=== PATIENT | male | born 1950 | race Caucasian/White ===

== ENCOUNTER 2023-10-16 19:08 | Emergency (ER) | payer MEDICARE, SELFPAY ==
[2023-10-16 19:09] VITALS: BP 156/92; PULSE 66; TEMP 36.6; O2SAT 97
--- NOTE | 2023-10-16 19:19 | CT_ITS ---
The [address] [address] Patient Name: SUSIE SAMUELS MRN: [id number] date: 1950 Sex: M Assigned Patient Location: ER Current Patient Location: ED.MAIN Accession/Order Number: [id number] Exam Date: 10/16/2023 19:36 Report Date: 10/16/2023 20:33 At the request of: RAFAEL STERLING Procedure: CT head/brain wo con EXAM: CT head/brain wo con HISTORY: head injury COMPARISON: None. TECHNIQUE: CT head noncontrast. Axial scans with reformatted coronal and sagittal images. Individualized dose reduction views for this exam. FINDINGS: No intracranial hemorrhage noted. Scalp injury left parietal area without adjacent fracture or foreign body. There is a small calcific density along the inner table the skull left parietal area, could be a small incidental meningioma less than a centimeter. Adjacent brain appears normal. Ventricles and sulci prominent felt to be normal for age. No mass effect or midline shift. No edema noted. Visualized mastoid, middle ear cavities sinuses clear. CT/CT head/brain wo con IMPRESSION: 1. Left parietal scalp injury without foreign body or adjacent skull fracture. 2. No intracranial hemorrhage or other acute abnormality within the brain. 3. Small calcific density along the inner table skull left parietal area as noted above. Possible small incidental meningioma. Electronically authenticated by: JAHAIRA CROSS Date: 10/16/2023 20:33
--- NOTE | 2023-10-16 19:19 | CT_ITS ---
The [address] [address] Patient Name: SUSIE SAMUELS MRN: [id number] date: 1950 Sex: M Assigned Patient Location: ER Current Patient Location: .[facility] Accession/Order Number: [id number] Exam Date: 10/16/2023 19:36 Report Date: 10/16/2023 20:34 At the request of: RAFAEL STERLING Procedure: CT cervical spine wo con CT cervical spine wo con 10/16/2023 6:36 PM CDT: History: head injury Neck Pain Comparison: None. Technique: Unenhanced CT imaging of the cervical spine. This CT exam was performed using one or more of the following dose reduction techniques: Automated exposure control, adjustment of the mA and/or KV according to patient size, or use of iterative reconstruction technique. Findings: The cervical vertebral bodies maintain normal height and alignment. There is no fracture or dislocation. The prevertebral soft tissues and predental space are normal. The facet joints are aligned bilaterally. The atlantooccipital articulation is normal bilaterally. There is multilevel degenerative disc disease of the cervical spine. CT/CT cervical spine wo con Impression: 1. No acute abnormality of the cervical spine. Electronically authenticated by: KAISER STEPHENSON Date: 10/16/2023 20:34
--- NOTE | 2023-10-16 19:19 | XR_ITS ---
The [address] [address] Patient Name: SUSIE SAMUELS MRN: [id number] date: 1950 Sex: M Assigned Patient Location: ER Current Patient Location: ER Accession/Order Number: [id number] Exam Date: 10/16/2023 19:47 Report Date: 10/16/2023 20:35 At the request of: RAFAEL STERLING Procedure: XR elbow LT min 3V EXAM: XR elbow LT min 3V HISTORY: injury. skin tear/ pain COMPARISON: None. TECHNIQUE: AP, oblique, lateral view left elbow. FINDINGS: Negative for fracture or joint effusion. DJD with articular spurring. Narrowing of the radiocapitellar joint. There are 2 incidental soft tissue calcification. XR/XR elbow LT min 3V IMPRESSION: DJD. Negative for fracture or joint effusion. Electronically authenticated by: JAHAIRA CROSS Date: 10/16/2023 20:35
--- NOTE | 2023-10-16 19:22 | ED_ITS ---
HPI HPI - General Adult General Chief complaint: Head Injury Stated complaint: FALL Time Seen by Provider: 10/16/23 19:14 Source: patient and medical record Mode of arrival: ambulance History of Present Illness HPI narrative: Patient is a 73-year-old male from [facility] facility for evaluation of head injury. Patient reports a history of Parkinson's, EMS reported dementia. Patient states he stood up too quickly without his cane and lost his balance striking his head on the leg of a chair. He denies loss of consciousness, reports tenderness to the left side of his head and left elbow. Patient has bl eeding controlled with bandage 4 cm linear left temporal scalp laceration and skin tear noted to the left elbow. Patient denies pain to his neck back or lower legs. He is alert to person place and month. He does not know the day. Patient states his lives in [place]. Patient's tetanus is up-to-date and he does not take any blood thinning medications per medical record. Location: Reports head and upper extremity (left elbow) Severity: mild Pain Consistency: Reports constant Relieving factors: Reports none Exacerbating factors: Reports none Related Data Home Medications ?Medication ?Instructions ?Recorded ?Confirmed atorvastatin 40 mg tablet 40 mg PO DAILY 10/16/23 10/16/23 carbidopa ER 25 mg-levodopa 100 mg 1 tab PO QID 10/16/23 10/16/23 tablet,extended release cyanocobalamin (vitamin B-12) 100 100 mcg PO DAILY 10/16/23 10/16/23 mcg tablet donepezil 23 mg tablet 23 mg PO DAILY 10/16/23 10/16/23 fluoxetine 60 mg tablet 60 mg PO DAILY 10/16/23 10/16/23 insulin detemir U-100 100 unit/mL 20 unit subcut QPM 10/16/23 10/16/23 (3 mL) subcutaneous pen (Levemir FlexPen) insulin lispro 100 unit/mL 1 sliding scale dose subcut 10/16/23 10/16/23 subcutaneous cartridge (Humalog USEASDIRECTD U-100 Insulin) melatonin 3 mg capsule 3 mg PO QPM 10/16/23 10/16/23 pantoprazole 40 mg tablet,delayed 40 mg PO QPM 10/16/23 10/16/23 release pyridostigmine bromide 30 mg tablet 30 mg PO BID 10/16/23 10/16/23 sitagliptin phosphate 100 mg 100 mg PO BID 10/16/23 10/16/23 tablet (Januvia) Allergies Allergy/AdvReac Type Severity Reaction Status Date / Time Penicillins Allergy Severe Anaphylaxis Verified 10/16/23 19:12 Opioid HPI Opioid Management Most Recent Opioid Data: No Data to Display Review of Systems ROS Constitutional Denies: fever or chills Eyes Denies: change in vision Ears, nose, mouth, and throat Denies: throat pain or neck pain Cardiovascular Denies: chest pain or palpitations Respiratory Denies: shortness of breath or cough Gastrointestinal Denies: abdominal pain Genitourinary Denies: painful urination Musculoskeletal Reports: joint pain (left lebow); Denies: back pain or extremity swelling Neurological Denies: headache Hematologic/Lymphatic Denies: easy bruising PFSH [facility] Medical History (Updated 10/16/23 @ 20:33 by SANDOVAL Grady) Osteoarthritis ?M19.90 - Unspecified osteoarthritis, unspecified site (ICD-10) HTN (hypertension) ?I10 - Essential (primary) hypertension (ICD-10) Homicidal ideations ?R45.850 - Homicidal ideations (ICD-10) Diabetes ?E11.9 - Type 2 diabetes mellitus without complications (ICD-10) Parkinson disease ?G20.A1 - Parkinson's disease without dyskinesia, without mention of fluctuations (ICD-10) Hyperlipemia ?E78.5 - Hyperlipidemia, unspecified (ICD-10) Anxiety ?F41.9 - Anxiety disorder, unspecified (ICD-10) Alzheimer disease ?G30.9 - Alzheimer's disease, unspecified (ICD-10) ?F02.80 - Dementia in other diseases classified elsewhere, unspecified severity, without behavioral disturbance, psychotic disturbance, mood disturbance, and anxiety (ICD-10) Agitation ?R45.1 - Restlessness and agitation (ICD-10) Depression ?F32.A - Depression, unspecified (ICD-10) Dementia ?F03.90 - Unspecified dementia, unspecified severity, without behavioral disturbance, psychotic disturbance, mood disturbance, and anxiety (ICD-10) Exam Narrative Exam Narrative: Nurses notes and vital signs reviewed and patient is not hypoxic. General: The patient appears well and in no apparent distress. Patient is resting comfortably on cart. Skin: Warm, dry, no pallor noted. Skin tear noted left lateral elbow. Head: Normocephalic, 4 cm linear scalp laceration left temporal region. Bleeding controlled with bandage. Neck: Supple, trachea mid-line, no tenderness, no lymphadenopathy, c-collar in place from EMS. Eye: Pupils are equal, round and reactive to light, EOMI Ears, Nose, Mouth, and Throat: External exam unremarkable. Cardiovascular: Regular Rate and Rhythm Respiratory: Patient is in no distress, no accessory muscle use, lungs are clear to auscultation, no wheezing, rales or rhonchi. Chest Wall: no tenderness Back: non-tender, no CVA tenderness, pain to the midline thoracic or lumbar spine. Musculoskeletal: normal ROM, no tenderness, no swelling, bilateral knee replacements noted, no bruising or abrasion, no tenderness. No pain with range of motion of hips. GI: Normal bowel sounds, no tenderness to palpation, no masses appreciated. No rebound, guarding, or rigidity noted. Neurological: A&O person, place, recent events and month. Psychiatric: Cooperative Constitutional Vital Signs, click to edit/add: Last Vital Signs Temp 97.9 F 10/16/23 19:09 Pulse 78 10/16/23 20:37 Resp 18 10/16/23 20:37 BP 178/87 H 10/16/23 20:37 Pulse Ox 98 10/16/23 20:37 O2 Del Method Room Air 10/16/23 19:09 Course Vital Signs Vital signs: Vital Signs Temperature 97.9 F 10/16/23 19:09 Pulse Rate 66 10/16/23 19:09 Respiratory Rate 18 10/16/23 19:09 Blood Pressure 156/92 H 10/16/23 19:09 Pulse Oximetry 97 10/16/23 19:09 Oxygen Delivery Method Room Air 10/16/23 19:09 Temperature 97.9 F 10/16/23 19:09 Pulse Rate 78 10/16/23 20:37 Respiratory Rate 18 10/16/23 20:37 Blood Pressure 178/87 H 10/16/23 20:37 Pulse Oximetry 98 10/16/23 20:37 Oxygen Delivery Method Room Air 10/16/23 19:09 Medical Decision Making MDM Narrative Medical decision making narrative: Patient with fall, closed head injury, currently acting appropriate, patient aware his laceration will require suture repair and is agreeable to lidocaine with epinephrine for procedure. We discussed the need to CT image his head and neck. X-ray left elbow. Skin tear cleansed and dressed with gauze bandage. Will need follow-up with PCP/house nurse for suture removal in 7 days. Verbal and written close head injury instructions discussed The patient is to followup with primary care physician in next 2-3 days wound recheck and suture removal in 7 days. or to return to the emergency department should any of the signs or symptoms worsen or new symptoms develop. Patient had questions answered. The patient agrees with the following Diagnosis and Treatment plan and the patient will be discharged home. SHARED APC VISIT, PHYSICIAN ATTESTATION: [id number] I performed a substantive part of the MDM during the patient?s E/M visit. I personally evaluated and examined the patient. I personally made or approved the documented management plan and acknowledge its risk of complications. My (EKG/X-Ray/US/CT) interpretation . Management/test interpretation discussed with . Imaging Data CT scan - head: Radiologist's impression: ITS Impressions Cervical Spine CT 10/16/23 19:19 Impression: 1. No acute abnormality of the cervical spine. Electronically authenticated by: KAISER STEPHENSON Date: 10/16/2023 20:34 Elbow X-Ray 10/16/23 19:19 IMPRESSION: DJD. Negative for fracture or joint effusion. Electronically authenticated by: JAHAIRA CROSS Date: 10/16/2023 20:[address] 10/16/23 19:19 IMPRESSION: 1. Left parietal scalp injury without foreign body or adjacent skull fracture. 2. No intracranial hemorrhage or other acute abnormality within the brain. 3. Small calcific density along the inner table skull left parietal area as noted above. Possible small incidental meningioma. Electronically authenticated by: JAHAIRA CROSS Date: 10/16/2023 20:33 Discharge Plan Discharge Stand Alone Forms: Portal Instructions Chief Complaint: Head Injury Clinical Impression: Closed head injury, Laceration of scalp, Skin tear of left elbow without complication Patient Disposition: Home, Self-Care Time of Disposition Decision: 20:38 Condition: Good Mode of Transportation: EMS Prescriptions / Home Meds: No Action atorvastatin 40 mg tablet 40 mg PO DAILY carbidopa-levodopa 25-100 mg tablet extended release 1 tab PO QID donepezil 23 mg tablet 23 mg PO DAILY fluoxetine 60 mg tablet 60 mg PO DAILY Humalog U-100 Insulin 100 unit/mL cartridge 1 sliding scale dose subcut USEASDIRECTD Januvia 100 mg tablet 100 mg PO BID Levemir FlexPen 100 unit/mL (3 mL) insulin pen 20 unit subcut QPM melatonin 3 mg capsule 3 mg PO QPM pantoprazole 40 mg tablet,delayed release (DR/EC) 40 mg PO QPM pyridostigmine bromide 30 mg tablet 30 mg PO BID cyanocobalamin (vitamin B-12) 100 mcg tablet 100 mcg PO DAILY Print Language: Citizen Of [place] Instructions: Laceration (ED), Head Injury (ED) Additional Instructions: Suture removal in 7-10 days: to scalp Steri strips on left elbow- will fall of on there own.. keep wound covered. No submerging. Referrals: ARSENIO RODRIGUEZ [Primary Care Provider] - 1 week Procedures ED Laceration Laceration Laceration 1: Additional comments: Laceration repair: Done under sterile conditions. The use of Betadine was used to prep and clean the area. Local injection with lidocaine with epi 1% was used, approximately 3.5 cc. The wound was irrigated copiously with normal saline. The wound was explored there was no evidence of foreign material. The laceration was approximated with 5-0 prolene. 6 simple interrupted sutures were placed. Patient tolerated the procedure well. The patient was neurovascularly intact post. the patient had bacitracin applied to the laceration and a dry sterile dressing was place. The patient will need to follow-up in the next 7-10 days for removal.
[2023-10-16] MEDS: LIDOCAINE HCL 1%-EPINEPHRINE 1:100,000 20 ML MDV INJ (20:01)
[2023-10-16] MEDS: BACITRACIN 0.9 GM PACKET 1 PACKET TOPICAL (20:01)
[2023-10-16 20:37] VITALS: BP 178/87; PULSE 78; O2SAT 98
[2023-10-16 22:54] VITALS: BP 162/82; PULSE 72; O2SAT 98
== END 2023-10-16 23:00 | disposition home or self-care (01) ==
PROVIDERS: Emergency Provider Emergency Medicine; PCP Family Medicine
DX: S09.8XXA Other specified injuries of head, initial encounter (principal); S01.01XA Laceration without foreign body of scalp, initial encounter; S51.012A Laceration without foreign body of left elbow, initial encounter; W19.XXXA Unspecified fall, initial encounter; G20.A1 Parkinson's disease without dyskinesia, without mention of fluctuations; F02.80 Dementia in other diseases classified elsewhere, unspecified severity, without behavioral disturbance, psychotic disturbance, mood disturbance, and anxiety
CPT/HCPCS: 12002; 70450; 72125; 73080; 99285

== ENCOUNTER 2023-12-11 08:38 | Emergency (ER) | payer MEDICARE, SELFPAY ==
[2023-12-11] VITALS (30 sets, daily range): BP systolic 114–141; BP diastolic 56–74; PULSE 53–79; TEMP 36.5; O2SAT 98–100; BMI 24.4
--- NOTE | 2023-12-11 08:41 | CT_ITS ---
The [address] [address] Patient Name: SUSIE SAMUELS MRN: [id number] date: 1950 Sex: M Assigned Patient Location: ER Current Patient Location: ER Accession/Order Number: [id number] Exam Date: 12/11/2023 09:00 Report Date: 12/11/2023 09:34 At the request of: VIOLETTE LOPEZ Procedure: CT cervical spine wo con EXAM: CT cervical spine wo con HISTORY: trauma COMPARISON: CT cervical spine 10/16/2023 TECHNIQUE: Axial noncontrast CT imaging of the cervical spine was performed with coronal and sagittal reformats. FINDINGS: Alignment: No substantial subluxation. Vertebrae: Vertebral body heights are maintained. No fracture. Craniocervical junction: No focal abnormality. Degenerative changes: Stable degenerative change of the cervical spine with multilevel small posterior disc osteophyte complexes and probable central protrusion at C7 with caudal migration of vacuum disc. Multilevel moderate to advanced uncovertebral mild to moderate uncovertebral and moderate to advanced facet arthropathy. No overt substantial canal stenosis. Multilevel moderate to advanced right greater than left foraminal stenosis secondary to uncovertebral and facet arthropathy. Additional Comments: Mild vascular sclerosis. CT/CT cervical spine wo con IMPRESSION: No acute fracture or traumatic malalignment of the cervical spine. Electronically authenticated by: MAGALI CRAWFORD Date: 12/11/2023 09:34
--- NOTE | 2023-12-11 08:41 | CT_ITS ---
The [address] [address] Patient Name: SUSIE SAMUELS MRN: [id number] date: 1950 Sex: M Assigned Patient Location: ER Current Patient Location: Accession/Order Number: [id number] Exam Date: 12/11/2023 09:00 Report Date: 12/11/2023 11:47 At the request of: VIOLETTE LOPEZ Procedure: CT facial bones wo con CT SCAN OF THE FACE WITHOUT CONTRAST HISTORY: Trauma. TECHNIQUE: Multiple axial images are performed through the facial bones from the level above the frontal sinuses down through the mandible. Images are then reconstructed in the sagittal and coronal planes.This exam was performed according to our departmental dose-optimization program which includes use of Automated Exposure Control, adjustment of the mA and/or kV according to patient size and/or use of iterative reconstruction technique. Without contrast. Contrast: None. COMPARISON: None. FINDINGS: Bones: There is no evidence for acute fracture. Mineralization: Bone mineralization is decreased Soft tissues: Soft tissues are within normal. Paranasal sinuses: The paranasal sinuses are well aerated. Mastoid air cells: The mastoid air cells are well aerated. Orbits: Normal. CT/CT facial bones wo con IMPRESSION: Osteopenia. No acute displaced fracture. Electronically authenticated by: DAYAN BARTON Date: 12/11/2023 11:47
--- NOTE | 2023-12-11 08:41 | CT_ITS ---
The [address] [address] Patient Name: SUSIE SAMUELS MRN: [id number] date: 1950 Sex: M Assigned Patient Location: ER Current Patient [facility]: [facility] Accession/Order Number: [id number] Exam Date: 12/11/2023 09:00 Report Date: 12/11/2023 09:30 At the request of: VIOLETTE LOPEZ Procedure: CT head/brain wo con EXAM: NONCONTRAST CT SCAN OF THE HEAD HISTORY: 73-year-old male with head injury TECHNIQUE: Multiple axial images are taken from the level the vertex down to the base of the skull without the use of IV contrast. Images were then reconstructed in the sagittal and coronal planes. This exam was performed according to our departmental dose-optimization program which includes use of Automated Exposure Control, adjustment of the mA and/or kV according to patient size and/or use of iterative reconstruction technique. COMPARISON: 10/16/2023 FINDINGS: Brain Parenchyma: No intracranial mass. No intracranial hemorrhage. Britt-white matter within expected limits of normal for patient's age. Posterior fossa: Normal. Midline shift: None Extra-axial fluid collection: None Ventricles: Normal. Mastoid air cells: Normal. Sinuses: Mucosal thickening in the medial right maxillary sinus. Cranium: No depressed skull fracture. Soft tissues: Normal. Orbits: Normal. CT/CT head/brain wo con IMPRESSION: 1. No noncontrast CT evidence for acute intracranial pathology. 2. If patient continues to have symptoms or if there remains any further clinical concern, MRI may help better delineate if clinically indicated. Electronically authenticated by: DAYAN BARTON Date: 12/11/2023 09:30
--- OUTSIDE RECORDS SUMMARY | 2023-12-11 08:44 | XMS_ITS | CCD ---
Author Organization [facility] Care Team Providers Care Tool Liaison Name Role Phone Dandre Swanson MD Primary Care Provider VALE EVANGELISTA Attending Unavailable YASMINEFTVALE Yang Referring Unavailable SWANSON, DANDRE M Primary Care Unavailable VALE EVANGELISTA Referring Unavailable SWANSON, DANDRE M Primary Care Unavailable SWANSON, DANDRE M Primary Care Unavailable VALE EVANGELISTA Attending Unavailable VALE EVANGELISTA Referring Unavailable SWANSON, DANDRE M Primary Care Unavailable SWANSON, DANDRE M Referring Unavailable MARAL GIORDANO Attending Unavailable VALE EVANGELISTA Referring Unavailable PAT WHEELER Attending Unavailable YASMINEFTIVALE Referring Unavailable SWANSON, DANDRE M Primary Care Unavailable FATMATA STOUT Attending Unavailable AUGUSTINE IVORY Admitting Unavailable [facility] ONLY[facility] Consulting Unavailable RAMIN MIXON Consulting Unavailable PARISEAU, JASON Referring Unavailable SWANSON, DANDRE M Primary Care Unavailable PARISEAU JASON Referring Unavailable SWANSON, DANDRE M Primary Care Unavailable HECTOR SU Referring Unavailable SWANSON, DANDRE M Primary Care Unavailable MAGALI SUAZO Attending Unavailable SWANSON, DANDRE M Primary Care Unavailable JASON HOPSON Referring Unavailable SWANSON, DANDRE M Primary Care Unavailable NAILA SMITH Referring Unavailable SWANSON, DANDRE M Primary Care Unavailable SUSIE DANIEL Attending Unavailable ANDRZEJ FINE Attending Unavailable ANDRZEJ FINE Referring Unavailable SWANSON, DANDRE M Primary Care Unavailable MARLENA PADGETT I Referring Unavailable SWANSON, DANDRE M Primary Care Unavailable Dandre Swanson MD Primary Care Provider Dandre Swanson MD Primary Care Provider DANDRE SWANSON Primary Care Unavailable LEXY SWANSONIA M Referring Unavailable SWANSON, DANDRE M Referring Unavailable SWANSON, DANDRE M Primary Care Unavailable MAIRA MORALES Referring Unavailable SWANSON, DANDRE M Primary Care Unavailable JOHAN WISEMAN Referring Unavailable SWANSON, DANDRE M Primary Care Unavailable SWANSON, DANDRE M Primary Care Unavailable LETY STEIN Admitting Unavailable SHIRLEY CASTANEDA Attending Unavailable BERTRAM HATCH S Consulting Unavailable SWANSON, DANDRE M Primary Care Unavailable JOSEF FARAH Consulting Unavailable LISET, MARTA Admitting Unavailable LISET, MARTA Attending Unavailable JOHAN WISEMAN Consulting Unavailable CODY DOUGHERTY Consulting Unavailable Allergies Allergy Classification Reported Allergen(s) Allergy Type Date of Onset Reaction(s) Facility (13 sources) Penicillins; Translations: [PENICILLINS] Propensity to adverse reactions to drug 5 Anaphylaxis [facility] (13 sources) Simvastatin; Translations: [SIMVASTATIN] Drug Allergy 5 Other (See Comments) Tailored Phone: (1 source) ALLERGIES NOT ON FILE; Translations: [ALLERGIES NOT ON FILE] Propensity to adverse reactions (disorder) [facility] (2 sources) Vibegron Propensity to adverse reactions to drug 4 Rash Tailored Phone: (2 sources) Metformin And Related Propensity to adverse reactions to drug 4 Diarrhea [facility] Medications Current Medications Medication Drug Class(es) Dates Sig (Normalized) Sig (Original) Acetaminophen (9 sources) Start: 06-16-2023 acetaminophen (TYLENOL) tablet 650 mg take 2 tablets by mo uth every six hours as needed for pain acetaminophen (TYLENOL) 325 MG tablet Ta ke 650 mg by mouth every 6 hours as needed for Pain 0 Active atorvastatin 40 mg oral tablet (13 sources) HMG-CoA Reductase Inhibitor Start: 09-01-2022 atorvastatin (LIPITO R) 40 MG tablet Indications: Type 2 diabetes mellitus without complication, with long-term current use of insulin (HCC) , Other hyperlipidemia TAKE 1 TABLET IN THE MORNING 90 tablet 3 09/01/2022 Active Start: 10-13-2021 take 1 tablet by brad in the morning atorvastatin (LIPITOR) 40 MG tablet Indications: Type 2 diabetes mellitus without complication, with long-term current use of insulin (HCC) , Other hyperlipidemia Take 1 tablet by mouth in the morning. 90 tablet 3 10/13/2021 Active Start: 02-12-2016 take 2 tablets by mo [facility] three times weekly atorvastatin (LIPITOR) 20 mg tablet Take 2 tablets (40 mg total) by mouth See Admin Instructions. THREE TIMES A WEEK 0 02/12/2016 Active 1000 ml glucose 100 mg/ml injection (3 sources) Start: 06-16-2023 take 1 mL intravenously every hour IntraVENous, at 100 mL/hr, CONTINUOUS PRN, if blood glucose remains LESS THAN 70 mg/dL after 2 dextrose 10% intravenous boluses or administration of glucagon, Starting on Luna 06/16/23 at 1352 If blood glucose fails to stabilize after 2 dextrose 10% intravenous boluses or glucagon administration, start dextrose 10% infusion at 100 mL/hour and repeat blood glucose at 30 and 60 minutes. If blood glucose is GREATER THAN 70 mg/dL after 60 minutes, discontinue dextrose 10% infusion. Start: 06-16-2023 dextrose bolus 10% 125 mL Start: 06-16-2023 16 g (4 tablet ), Oral, PRN, Starting on Luna 06/16/23 at 1352, Until Discontinued, Low blood sugar If blood glucose is LESS THAN 70 mg/dL and patient is alert and tolerating oral. Give 4 tablets (16g) Repeat blood glucose in 15 minutes. If blood glucose is LESS THAN 70 mg/dL, repeat treatment and recheck blood glucose in 15 minutes x 2. If blood glucose remains LESS THAN 70 mg/dL, notify provider. ibuprofen 800 mg oral tablet (4 sources) Nonsteroidal Anti-inflammatory Drug Start: 10-16-2018 ibuprofen (ADVIL;MOTRIN) 800 MG tablet TAKE 1 TABLET EVERY 8 HOURS NEEDED FOR PAIN 270 tablet 4 10/16/2018 Active insulin detemir 100 unt/ml injectable solution (10 sources) Insulin Analog Start: 04-20-2023 insulin detemi r U-100 (LEVEMIR) 100 unit/mL injection Indications: type 2 diabetes mellitus Inject 0.22 mL (22 Units total) under the skin in the morning. Indications: type 2 diabetes mellitus. 0 04/20/2023 Active Start: 09-08-2022 End: 06-16-2023 insulin detemir (LEVEMIR FLE XPEN) 100 UNIT/ML injection pen Indications: Type 2 diabetes mellitus with diabetic neuropathy, with long-term current use of insulin (HCC) Inject 45 Units into the skin daily 60 mL 3 09/08/2022 06/16/2023 Discontinued (DOSE ADJUSTMENT) Start: 07-07-2022 End: 09-08-2022 LEVEMIR FLEXPEN 100 UNIT/ML injection pen Indications: Type 2 diabetes mellitus without complication, with long-term current use of insulin ([facility]) INJECT SUBCUTANEOUSLY 55 UNITS DAILY 60 mL 3 07/07/2022 09/08/2022 Discontinued (REORDER) Start: 10-13-2021 End: 01-11-2022 insulin detemir (LEVEMIR FLE XTOUCH) 100 UNIT/ML injection pen Indications: Type 2 diabetes mellitus without complication, with long-term current use of insulin ([facility]) Inject 40 Units into the skin nightly 36 mL 3 10/13/2021 01/11/2022 Active lisinopril 2.5 mg oral tablet (9 sources) Angiotensin Converting Enzyme Inhibitor Start: 04-27-2022 lisinopril (PRINIVIL;ZESTRIL) 2.5 MG tablet Indications: Type 2 diabetes mellitus without complication, with long-term current use of insulin ([facility]) TAKE 1 TABLET DAILY 90 tablet 3 04/27/2022 Active Start: 04-13-2021 lisinopril (OR INIVIL;ZESTRIL) 2.5 MG tablet Indications: Type 2 diabetes mellitus without complication, with long-term current use of insulin ([facility]) TAKE 1 TABLET DAILY 90 tablet 3 04/13/2021 Active 50 ml magnesium sulfate 40 mg/ml injection (1 source) Start: 06-16-2023 2,000 mg, IntraVENous, at 25 mL/hr, Administer over 2 Hours, PRN, Other, Magnesium Replacement, Starting on Luna 06/16/23 at 1352 Mag Lab Replacement Action 1.4-1.6 mg/dL 2,000 mg Total Dose Given as 1,000 mg IVPB x 2 doses or 2,000 mg IVPB x 1 dose &nbs p; &nbs p;1.0-1.3 mg/dL 4,000 mg Total Dose &nbs p; Given as 1,000 mg IVPB x 4 doses or 2,000 mg IVPB x 2 doses Less than 1.0 mg/dL CALL PHYSICIAN and give &nbs p; 4,000 mg Total Dose &nbs p; Given as 1,000 mg IVPB x 4 doses or 2,000 mg IVPB x 2 doses Infuse at 1,000 mg/hr Repeat Mag level 1 hour after final administration Protocol not for use in Patients with CrCl less than 30ml/min 24 hr metFORMIN hydrochlor carisa 500 mg extended release oral tablet (12 sources) B i g u a n i d e Start: 04-20-2023 metFORMIN XR (GLUCOPHAGE XR) 500 mg 24 hr tablet Take 500mg daily for 2 weeks, then 1000mg daily thereafter. 0 04/20/2023 Active Start: 09-01-2022 metFORMIN (GLU COPHAGE) 1000 MG tablet TAKE ONE-HALF (1/2) TABLET THREE TIMES A DAY 135 tablet 3 09/01/2022 Active Start: 09-28-2021 metFORMIN (GLU COPHAGE) 1000 MG tablet TAKE ONE-HALF (1/2) TABLET THREE TIMES A DAY 180 tablet 3 09/28/2021 Active End: 06-17-2023 take 2 tablets by mouth once daily at breakfast metFORMIN (GLUCOPHAGE-XR) 500 MG extended release tablet Take 2 tablets by mouth daily (with breakfast) 0 06/17/2023 Discontinued (Stop Taking at Discharge) midodrine hydrochloride 2.5 mg oral tablet (4 sources) alpha-Adrenergic Agonist Start: 06-16-2023 2.5 m g, Oral, 3 TIMES DAILY WITH MEALS, First dose on Luna 06/16/23 at 1700, Until Discontinued Do not give after 1800 or within 4 hrs of bedtime. Start: 06-16-2023 End: 06-17-2023 take 1 tablet by mouth three times daily midodrine (PROAMATINE) 2.5 MG tablet Take 1 tablet by mouth 3 times daily 270 tablet 3 06/16/2023 06/17/2023 Discontinued (Stop Taking at Discharge) 24 hr mirabegron 50 mg extended release oral tablet (2 sources) beta3-Adrenergic Agonist Start: 05-25-2023 End: 08-23-2023 take 50 mg by mouth once daily MYRBETRIQ 50 MG TB24 Take 50 mg by mouth Every Day 0 05/25/2023 08/23/2023 Active ondansetron (ZOFRAN-ODT) disintegrating tablet 4 mg (1 source) Start: 06-16-2023 ondansetron (ZOFRAN-ODT) disintegrating tablet 4 mg pantoprazole 40 mg delayed release oral tablet (3 sources) Proton Pump Inhibitor Start: 04-20-2023 End: 05-07-2024 take 1 tablet by mouth once daily pantoprazole (PROTONIX) 40 MG tablet Take 1 tablet by mouth daily 90 tablet 3 05/13/2023 05/07/2024 Active Potassium Chloride (1 source) Start: 04-18-2024 potassium chloride (KLOR-CON M) extended release tablet 40 mEq pyridostigmine bromide 60 mg oral tablet (7 sources) Start: 06-18-2023 take 1 tablet by mouth once daily pyRIDostigmine (MESTINON) 60 MG tablet Take 1 tablet by mouth daily 60 tablet 3 06/18/2023 Active Start: 06-17-2023 take 60 mg by mouth once daily 60 mg, Oral, DAILY, First dose on Tue06/17/23 at 0900, Until Discontinued Start: 06-16-2023 take 30 mg by mouth once daily 30 mg, Oral, Nightly, First dose on Tue06/16/23 at 2100, Until Discontinued Start: 06-15-2023 End: 06-17-2023 take 0.5 tablet by mouth at bedtime, then take 1 tablet by mouth once daily in the morning pyRIDostigmine (MESTINON) 60 MG tablet Indications: Hypotension, unspecified hypotension type Take 0.5 tablets by mouth at bedtime AND 1 tablet every morning. 135 tablet 1 06/15/2023 06/17/2023 Discontinued (Stop Taking at Discharge) Start: 04-01-2023 End: 05-31-2023 take 0.5 tablet by mouth in the morning, then take 0.5 tablet by mouth at bedtime pyridostigmine (MESTINON) 60 mg tablet Take 0.5 tablets (30 mg total) by mouth in the morning and 0.5 tablets (30 mg total) before bedtime. 0 04/01/2023 05/31/2023 Active SITagliptin 50 mg oral tablet (2 sources) Dipeptidyl Peptidase 4 Inhibitor Start: 05-19-2023 take 1 tablet by mouth once daily SITagliptin (JANUVIA) 50 MG tablet Indications: Type 2 diabetes mellitus with diabetic neuropathy, with long-term current use of insulin (HCC) Take 1 tablet by mouth daily 90 tablet 1 05/19/2023 Active 5 ml sodium chloride 9 mg/ml injection (5 sources) Start: 06-17-2023 sodium chlorid e flush 0.9 % injection 10 mL Start: 06-16-2023 take 1 dose intraven ously twice daily 5-40 mL, IntraVENous, EVERY 12 HOURS SCHEDULED (2 times per day), First dose on Tue06/16/23 at 2100, Until Discontinued For Line Patency: Peripheral IV = 5 mL; Midline or Central Line = 10 mL/lumen. If following IV push medication, administer flush at same rate as the IV push. Flush volume is determined by type of infusion therapy being given. For non-viscous solutions use: Peripheral IV = 5 mL Midline or Central Line = 10 mL/lumen For viscous solutions (i.e. blood components, parenteral nutrition, contrast media, or after obtaining blood sample) use: Peripheral IV = 10 mL Midline or Central Line = 20 mL/lumen Start: 06-16-2023 IntraVENous, a t 5-250 mL/hr, PRN, if patient receiving piggyback infusions and maintenance fluids are not ordered OR KVO fluids to protect IV site / prevent frequent line interruptions/ long duration, Starting on Luna 06/16/23 at 1352 For piggyback infusion, administer at same rate as piggyback for a total of 25 mL. Enter 25 mL into dose field and piggyback rate into rate field of order. If piggyback is infusing at a rate less than 100 mL/hr, enter 25 mL into dose field and 100 mL/hr into rate field of order. For KVO fluids, enter rate of 20 mL/hr or less into rate field of order. Start: 06-16-2023 take 5-40 mL intrave nously once as needed 5-40 mL, IntraVENous, PRN, Starting on Luna 06/16/23 at 1352, Until Discontinued, Line Care, After every IV line use For Line Patency: Peripheral IV = 5 mL; Midline or Central Line = 10 mL/lumen. If following IV push medication, administer flush at same rate as the IV push. Flush volume is determined by type of infusion therapy being given. For non-viscous solutions use: Peripheral IV = 5 mL Midline or Central Line = 10 mL/lumen For viscous solutions (i.e. blood components, parenteral nutrition, contrast media, or after obtaining blood sample) use: Peripheral IV = 10 mL Midline or Central Line = 20 mL/lumen Start: 06-16-2023 End: 06-16-2023 sodium chloride 0.9 % bolus 1,000 mL vitamin b12 0.1 mg oral tablet (5 sources) Vitamin B12 Start: 05-11-2022 End: 05-11-2023 take 1 tablet by mouth once daily vitamin B-12 (CYANOCOBALAMIN) 100 MCG tablet Take 1 tablet by mouth daily 90 tablet 5 05/11/2022 Active Completed/Discontinued Medications Medication Drug Class(es) Dates Sig (Normalized) Sig (Original) carbidopa 25 mg / levodopa 250 mg oral tablet (12 sources) Aromatic Amino Acid Decarboxylation Inhibitor, Aromatic Amino Acid Start: 03-31-2023 End: 12-14-2023 take 1 tablet by mouth four times daily carbidopa-levodopa (SINEMET) 25-250 MG per tablet Indications: 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 Pt takes at 8AM, 12PM, 4PM and 8PM. 0 03/31/2023 09/27/2023 Active Start: 05-11-2022 take 1 tablet by brad th four times daily carbidopa-levodopa (SINEMET) 25-250 MG per tablet Take 1 tablet by mouth 4 times daily 360 tablet 3 05/11/2022 Active Start: 01-14-2022 End: 02-13-2022 take 2 tablets by mouth four times daily carbidopa-levodopa (SINEMET) 25-100 MG per tablet Take 2 tablets by mouth 4 times daily 720 tablet 3 02/10/2022 Active donepezil hydrochloride 5 mg oral tablet (5 sources) Start: 06-16-2023 take 15 mg by mouth once daily 15 mg, Oral, NIGHTLY, First dose on Luna 06/16/23 at 2100, Until Discontinued Start: 04-07-2023 End: 03-24-2024 take 1.5 tablets by mouth once daily donepezil (ARICEPT) 10 MG tablet Take 1.5 tablets by mouth nightly 45 tablet 11 04/07/2023 03/24/2024 Active Start: 08-12-2022 take 1 tablet by brad th once daily donepezil (ARICEPT) 5 MG tablet Take 1 tablet by mouth nightly 30 tablet 5 08/12/2022 Active 0.4 ml enoxaparin sodium 100 mg/ml prefilled syringe (1 source) Low Molecular Weight Heparin Start: 06-16-2023 inject 40 mg by subcutaneous injection once daily 40 mg, SubCUTAneous, DAILY, First dose on Luna 06/16/23 at 1500, Until Discontinued Indication of Use: Prophylaxis-DVT/PE Administer by deep subCUTAneous injection with pt lying down. Alternate injection sites on abdominal wall. Do not rub site after injection. Check with provider prior to any invasive procedure. FLUoxetine 20 mg oral capsule (16 sources) Serotonin Reuptake Inhibitor Start: 06-16-2023 take 40 mg by mouth once daily 40 mg, Oral, DAILY, First dose on Luna 06/16/23 at 1500, Until Discontinued Start: 03-31-2023 End: 03-25-2024 take 1 capsule by mouth once daily FLUoxetine (PROZAC) 20 MG capsule Indications: Recurrent major depressive disorder, in partial remission (HCC) Take 1 capsule by mouth daily 90 capsule 3 03/31/2023 03/25/2024 Active Start: 03-31-2023 End: 12-26-2023 take 1 capsule by mouth once daily FLUoxetine (PROZAC) 40 MG capsule Indications: Recurrent major depressive disorder, in partial remission (HCC) Take 1 capsule by mouth daily 90 capsule 2 03/31/2023 12/26/2023 Active Start: 09-01-2022 End: 09-08-2022 FLUoxetine (PROZAC) 20 MG ca psule Indications: Recurrent major depressive disorder, in partial remission (HCC) TAKE 1 CAPSULE DAILY 90 capsule 3 09/01/2022 09/08/2022 Discontinued (REORDER) Start: 10-26-2021 FLUoxetine (OR OZAC) 20 MG capsule Indications: Recurrent major depressive disorder, in partial remission (HCC) TAKE 1 CAPSULE DAILY 90 capsule 3 10/26/2021 Active Start: 01-19-2016 take 3 capsules by m outh once daily before breakfast FLUoxetine (PROzac) 20 mg capsule Indications: Anxiety Take 3 capsules (60 mg total) by mouth every morning before breakfast Indications: Anxiety. 0 01/19/2016 Active gadoteridol (PROHANCE) injection 19 mL (1 source) Start: 09-07-2022 End: 09-07-2022 gadoteridol (PROHANCE) injection 19 mL glucagon (rdna) 1 mg injection (1 source) Antihypoglycemic Agent Start: 06-16-2023 inject 1 mg by subcutaneous injection every hour as needed 1 mg, SubCUTAneous, PRN, Starting on Tue06/16/23 at 1352, Until Discontinued, Low blood sugar, Blood glucose LESS THAN 70 mg/dL and patient NOT ALERT or NPO and does not have IV access. After administration, attempt intravenous access and start dextrose 10% at 100 mL/hr. Repeat blood glucose in 15 minutes x 2 and notify provider. insulin glargine 100 unt/ml injectable solution (1 source) Insulin Analog Start: 06-17-2023 inject 15 [IU] by subcutaneous injection once daily 15 Units, SubCUTAneous, DAILY, First dose on Tue06/17/23 at 0900, Until Discontinued polyethylene glycol 3350 85233 mg powder for oral solution (1 source) Osmotic Laxative Start: 06-16-2023 17 g, Oral, DAILY PRN, Starting on Tue06/16/23 at 1352, Until Discontinued, Constipation First line therapy for constipation regadenoson (LEXISCAN) injection 0.4 mg (1 source) Start: 06-17-2023 End: 06-17-2023 regadenoson (LEXISCAN) injection 0.4 mg technetium sestamibi (CARDIOLITE) injection 15 millicurie (1 source) Start: 06-17-2023 End: 06-17-2023 technetium sestamibi (CARDIOLITE) injection 15 millicurie technetium sestamibi (CARDIOLITE) injection 35 millicurie (1 source) Start: 06-17-2023 End: 06-17-2023 technetium sestamibi (CARDIOLITE) injection 35 millicurie Problems Active Problems Problem Classification Problem Date Documented Da te Episodic/Chronic Anxiety disorders (1 source) Anxiety; Translations: [Anxiety disorder, unspecified] Onset: 05-14-2016 10-23-2016 Chronic Aortic; peripheral; and visceral artery aneurysms (11 sources) Abdominal aortic aneurysm; Translations: [Abdominal aortic aneurysm, without rupture] Onset: 12-02-2020 12-02-2020 Chronic Diabetes mellitus with complications (9 sources) Neuropathy due to type 2 diabetes mellitus; Translations: [Type 2 diabetes mellitus with diabetic neuropathy, unspecified] Onset: 12-17-2014 01-19-2022 Chronic Diabetes mellitus without complication (20 sources) Type 2 diabetes mellitus without complication; Translations: [Type 2 diabetes mellitus without complications] Onset: 12-17-2014 Chronic Disorders of lipid metabolism (13 sources) Hyperlipidemia; Translations: [Other hyperlipidemia] Onset: 12-17-2014 Chronic E Codes: Adverse effects of medical drugs (1 source) Adverse reaction to drug; Translations: [Adverse effect of unspecified drugs, medicaments and biological substances, initial encounter] Onset: 04-17-2023 04-17-2023 Episodic Gastrointestinal hemorrhage (2 sources) Melena; Translations: [Melena] Onset: 04-16-2023 04-18-2023 Episodic Genitourinary symptoms and ill-defined conditions (1 source) Hematuria, unspecified; Translations: [Hematuria, unspecified] Onset: 04-17-2023 Episodic Impulse control disorders, NEC (1 source) Homicidal ideations; Translations: [Homicidal ideations] Onset: 07-18-2023 Episodic Mood disorders (20 sources) Depressive disorder; Translations: [Depression] Onset: 10-22-2016 12-19-2018 Chronic Osteoarthritis (20 sources) Arthritis of knee; Translations: [Unilateral primary osteoarthritis, unspecified knee] Onset: 12-17-2014 12-17-2014 Chronic Other gastrointestinal disorders (1 source) Other fecal abnormalities; Translations: [Other fecal abnormalities] Onset: 04-17-2023 Episodic Other gastrointestinal disorders (1 source) Diarrhea Onset: 04-16-2023 Episodic Other gastrointestinal disorders (1 source) Loose stool; Translations: [Other fecal abnormalities] Onset: 04-17-2023 04-17-2023 Episodic Other hereditary and degenerative nervous system conditions (2 sources) Mild cognitive impairment, so stated; Translations: [Mild cognitive impairment of uncertain or unknown etiology] Onset: 01-25-2023 Chronic Other nervous system disorders (7 sources) Neuropathy; Translations: [Polyneuropathy, unspecified] Onset: 01-14-2022 01-14-2022 Chronic Other nervous system disorders (3 sources) Tremor; Translations: [Tremor, unspecified] Episodic Parkinson`s disease (11 sources) Parkinson's disease; Translations: [Parkinson's disease] Onset: 01-14-2022 01-14-2022 Chronic Parkinson`s disease (3 sources) Parkinson`s disease; Translations: [Parkinson's disease with dyskinesia, without mention of fluctuations] Onset: 01-14-2022 Residual codes; unclassified (1 source) Sleep apnea, unspecified; Translations: [Sleep apnea, unspecified] Onset: 09-13-2022 Chronic Residual codes; unclassified (2 sources) Sleep apnea; Translations: [Sleep apnea, unspecified] Onset: 09-13-2022 09-13-2022 Chronic Residual codes; unclassified (1 source) Restlessness and agitation; Translations: [Restlessness and agitation] Onset: 07-21-2023 Chronic Residual codes; unclassified (2 sources) Other amnesia; Translations: [Other amnesia] Onset: 01-25-2023 Episodic Residual codes; unclassified (1 source) Other specified health status; Translations: [Other specified health status] Onset: 04-16-2023 Episodic Spondylosis; intervertebral disc disorders; other back problems (6 sources) Cervical arthritis; Translations: [Spondylosis without myelopathy or radiculopathy, cervical region] Onset: 01-01-2022 Chronic Syncope (6 sources) Near syncope; Translations: [Syncope and collapse] Onset: 06-16-2023 06-16-2023 Episodic Unclassified (1 source) Diarrhea x3 today Onset: 04-16-2023 Unclassified (1 source) Unspecified dementia, severe, with agitation; Translations: [Unspecified dementia, severe, with agitation] Onset: 07-18-2023 Urinary tract infections (2 sources) Urinary tract infection, site not specified; Translations: [Urinary tract infectious disease] Onset: 04-16-2023 04-17-2023 Episodic Past or Other Problems Problem Classification Problem Date Documented Date Episodic/Chronic Nutritional deficiencies (12 sources) Cobalamin deficiency; Translations: [Deficiency of other specified B group vitamins] Onset: 10-30-2021 10-30-2021 Episodic Other aftercare (1 source) [facility] (current) use of insulin; Translations: [[facility] (current) use of insulin] Onset: 12-17-2014 Episodic Other nervous system disorders (8 sources) Abnormal gait; Translations: [Unspecified abnormalities of gait and mobility] Onset: 01-14-2022 Episodic Other nervous system disorders (3 sources) Impaired cognition; Translations: [Other symptoms and signs involving cognitive functions and awareness] Onset: 10-26-2022 Episodic Other nervous system disorders (3 sources) Other symptoms and signs involving cognitive functions and awareness; Translations: [Other symptoms and signs involving cognitive functions and awareness] Onset: 09-07-2022 Episodic Other nervous system disorders (1 source) Tremor, unspecified; Translations: [Tremor, unspecified] Onset: 01-01-2022 Episodic Other nervous system disorders (1 source) Unspecified abnormalities of gait and mobility; Translations: [Unspecified abnormalities of gait and mobility] Onset: 01-01-2022 Episodic Other skin disorders (11 sources) Keratoacanthoma; Translations: [Other specified epidermal thickening] Onset: 11-29-2019 11-29-2019 Episodic Unclassified (2 sources) Onset: 09-08-2022 09-08-2022 Results Test Name Value Interpretation Reference Range Facility Glucose,Whole Bloodon 2023 Glucose [Mass/Vol] 169 mg/dL High 75-110 [facility] Glucose [Mass/Vol] 129 mg/dL High 75-110 [facility] Glucose [Mass/Vol] 149 mg/dL High 75-110 [facility] Glucose,Whole Bloodon 2023 Glucose [Mass/Vol] 210 mg/dL High 75-110 [facility] Glucose [Mass/Vol] 169 mg/dL High 75-110 [facility] Glucose [Mass/Vol] 120 mg/dL High 75-110 [facility] Glucose [Mass/Vol] 139 mg/dL High 75-110 [facility] Glucose,Whole Bloodon 2023 Glucose [Mass/Vol] 222 mg/dL High 75-110 [facility] Glucose [Mass/Vol] 172 mg/dL High 75-110 [facility] Glucose [Mass/Vol] 165 mg/dL High 75-110 [facility] Glucose [Mass/Vol] 178 mg/dL High 75-110 [facility] Glucose,Whole Bloodon 2023 Glucose [Mass/Vol] 249 mg/dL High 75-110 [facility] Glucose [Mass/Vol] 96 mg/dL Normal 75-110 [facility] Glucose [Mass/Vol] 57 mg/dL Low 75-110 [facility] Comment on above: Result Comment: [employer] Noted Glucose,Whole Bloodon 2023 Glucose [Mass/Vol] 121 mg/dL High 75-110 [facility] Glucose [Mass/Vol] 70 mg/dL Low 75-110 [facility] Glucose [Mass/Vol] 73 mg/dL Low 75-110 [facility] Glucose [Mass/Vol] 57 mg/dL Low 75-110 [facility] Glucose [Mass/Vol] 71 mg/dL Low 75-110 [facility] Glucose,Whole Bloodon 2023 Glucose [Mass/Vol] 77 mg/dL Normal 75-110 [facility] Glucose [Mass/Vol] 95 mg/dL Normal 75-110 [facility] Glucose [Mass/Vol] 110 mg/dL Normal 75-110 [facility] Glucose [Mass/Vol] 123 mg/dL High 75-110 [facility] Glucose,Whole Bloodon 2023 Glucose [Mass/Vol] 224 mg/dL High 75-110 [facility] Glucose [Mass/Vol] 148 mg/dL High 75-110 [facility] Glucose [Mass/Vol] 184 mg/dL High 75-110 [facility] Glucose,Whole Bloodon 2023 Glucose [Mass/Vol] 129 mg/dL High 75-110 [facility] Glucose [Mass/Vol] 141 mg/dL High 75-110 [facility] Glucose [Mass/Vol] 87 mg/dL Normal 75-110 [facility] Glucose [Mass/Vol] 103 mg/dL Normal 75-110 [facility] Glucose,Whole Bloodon 2023 Glucose [Mass/Vol] 139 mg/dL High 75-110 [facility] Glucose [Mass/Vol] 184 mg/dL High 75-110 [facility] Glucose [Mass/Vol] 70 mg/dL Low 75-110 [facility] Glucose,Whole Bloodon 2023 Glucose [Mass/Vol] 181 mg/dL High 75-110 [facility] Glucose [Mass/Vol] 126 mg/dL High 75-110 [facility] Glucose [Mass/Vol] 132 mg/dL High 75-110 [facility] Glucose [Mass/Vol] 156 mg/dL High 75-110 [facility] Glucose,Whole Bloodon 2023 Glucose [Mass/Vol] 213 mg/dL High 75-110 [facility] Glucose [Mass/Vol] 143 mg/dL High 75-110 [facility] Glucose [Mass/Vol] 118 mg/dL High 75-110 [facility] Glucose [Mass/Vol] 78 mg/dL Normal 75-110 [facility] Glucose,Whole Bloodon 2023 Glucose [Mass/Vol] 208 mg/dL High 75-110 [facility] Glucose [Mass/Vol] 168 mg/dL High 75-110 [facility] Glucose [Mass/Vol] 92 mg/dL Normal 75-110 [facility] Glucose [Mass/Vol] 135 mg/dL High 75-110 [facility] Glucose,Whole Bloodon 2023 Glucose [Mass/Vol] 171 mg/dL High 75-110 [facility] Glucose [Mass/Vol] 132 mg/dL High 75-110 [facility] Glucose [Mass/Vol] 166 mg/dL High 75-110 [facility] Glucose [Mass/Vol] 191 mg/dL High 75-110 [facility] Glucose,Whole Bloodon 2023 Glucose [Mass/Vol] 156 mg/dL High 75-110 [facility] Glucose [Mass/Vol] 155 mg/dL High 75-110 [facility] Glucose [Mass/Vol] 143 mg/dL High 75-110 [facility] Glucose [Mass/Vol] 145 mg/dL High 75-110 [facility] Glucose,Whole Bloodon 2023 Glucose [Mass/Vol] 183 mg/dL High 75-110 [facility] Glucose [Mass/Vol] 116 mg/dL High 75-110 [facility] Glucose [Mass/Vol] 84 mg/dL Normal 75-110 [facility] Glucose [Mass/Vol] 99 mg/dL Normal 75-110 [facility] Glucose,Whole Bloodon 2023 Glucose [Mass/Vol] 113 mg/dL High 75-110 [facility] Glucose [Mass/Vol] 106 mg/dL Normal 75-110 [facility] Glucose [Mass/Vol] 103 mg/dL Normal 75-110 [facility] Glucose [Mass/Vol] 153 mg/dL High 75-110 [facility] B12/Folate Panelon Cobalamin (Vitamin B12) [Mass/Vol] 461 pg/mL Normal 232-1245 [facility] Comment on above: Performed By: #### B 12FOL ####[facility] [address] [place], [place] [id number] lab Director: Norberto Condon MD Folic Acid 12.2 ng/mL Normal 4.8-24.2 [facility] Comment on above: Performed By: #### B 12FOL ####[facility] [address] [place] [address] lab Director: Norberto Condon MD Glucose,Whole Bloodon 2023 Glucose [Mass/Vol] 207 mg/dL High 75-110 [facility] Glucose [Mass/Vol] 180 mg/dL High 75-110 [facility] Glucose [Mass/Vol] 213 mg/dL High 75-110 [facility] Glucose [Mass/Vol] 138 mg/dL High 75-110 [facility] CBC with Diffon 07-18-2023 Abs. Basophil 0.00 k/uL Normal 0.0-0.2 [facility] Comment on above: Performed By: #### C DP, MG, CP, ALCB ####[facility] [id number] [place] [address] Lab Director: Reji Son DO Abs.Neutrophil (Seg) 7.60 k/uL Normal 1.3-9.1 [facility] Comment on above: Performed By: #### C DP, MG, CP, ALCB ####[facility] [id number] [facility] [address] Lab Director: Reji Son DO Basophils/100 WBC (Bld) 1 % Normal 0-2 [facility] Comment on above: Performed By: #### C DP, MG, CP, ALCB ####[facility] [id number] [place] [address].[place] [address] Lab Director: Reji Son DO Eosinophils (Bld) [#/Vol] 0.10 10*3/uL Normal 0.0-0.4 [facility] Comment on above: Performed By: #### C DP, MG, CP, ALCB ####[facility] [id number] [facility] [address] Lab Director: Reji Son DO Eosinophils/100 WBC (Bld) 2 % Normal 0-4 [facility] Comment on above: Performed By: #### C DP, MG, CP, ALCB ####[address], [place] [phone] Director: Reji Son DO Erythrocyte distribution width (RBC) [Ratio] 13.9 % Normal 11.5-14.9 [facility] Comment on above: Performed By: #### C DP, MG, CP, ALCB ####[facility] [id number] [place] [address].[place], [place] [phone] Director: Reji Son DO Hematocrit (Bld) [Volume fraction] 42.8 % Normal 41-53 [facility] Comment on above: Performed By: #### C DP, MG, CP, ALCB ####[facility] [address] [place] [address] Lab Director: Reji Son DO Hemoglobin (Bld) [Mass/Vol] 14.4 g/dL Normal 13.5-17.5 [facility] Comment on above: Performed By: #### C DP, MG, CP, ALCB ####[facility] [id number] [place] [address] Lab Director: Reji Son DO Lymphocytes (Bld) [#/Vol] 1.20 10*3/uL Normal 1.0-4.8 [facility] Comment on above: Performed By: #### C DP, MG, CP, ALCB ####[facility] [id number] [facility] [place] [address] Lab Director: Reji Son DO Lymphocytes/100 WBC (Bld) 12 % Low 24-44 [facility] Comment on above: Performed By: #### C DP, MG, CP, ALCB ####[facility] [id number] [facility] [address] Lab Director: Reji Son DO MCH (RBC) [Entitic mass] 30.3 pg Normal 26-34 [facility] Comment on above: Performed By: #### C DP, MG, CP, ALCB ####[facility] [id number] [facility] [place] [address] Lab Director: Reji Son DO MCHC (RBC) [Mass/Vol] 33.7 g/dL Normal 31-37 [facility] Comment on above: Performed By: #### C DP, MG, CP, ALCB ####[facility] [address], [place] [phone] Director: Reji Son DO MCV (RBC) [Entitic vol] 89.9 fL Normal 80-100 [facility] Comment on above: Performed By: #### C DP, MG, CP, ALCB ####[facility] [id number] [place] [address] Lab Director: Reji Son DO Monocytes (Bld) [#/Vol] 0.80 10*3/uL Normal 0.1-1.3 [facility] Comment on above: Performed By: #### C DP, MG, CP, ALCB ####[facility] [address], [place] [phone] Director: Reji Son DO Monocytes/100 WBC (Bld) 8 % High 1-7 [facility] Comment on above: Performed By: #### C DP, MG, CP, ALCB ####[facility] [id number] [facility].[place], [place] [phone] Director: Reji Son DO Neutrophil (Seg) 77 % High 36-66 [facility] Comment on above: Performed By: #### C DP, MG, CP, ALCB ####[facility] [id number] [facility].[place], [place] [phone] Director: Reji Son DO Platelet mean volume (Bld) [Entitic vol] 7.1 fL Normal 6.0-12.0 [facility] Comment on above: Performed By: #### C DP, MG, CP, ALCB ####[facility] [id number] [facility].[place], [place] [phone] Director: Reji Son DO Platelets (Bld) [#/Vol] 329 10*3/uL Normal 150-450 [facility] Comment on above: Performed By: #### C DP, MG, CP, ALCB ####[facility] [id number] [facility].[place], [place] [phone] Director: Reji Son DO RBC (Bld) [#/Vol] 4.77 10*6/uL Normal 4.5-5.9 [facility] Comment on above: Performed By: #### C DP, MG, CP, ALCB ####[facility] [id number], [place] [phone] Director: Reji Son DO WBC (Bld) [#/Vol] 9.8 10*3/uL Normal 3.5-11.0 [facility] Comment on above: Performed By: #### C DP, MG, CP, ALCB ####[facility] [address], [place] [phone])[phone] Director: Reji Son DO Comp Metabolic Profon 2023 ALT [Catalytic activity/Vol] U/L Low 5-41 [facility] Comment on above: Performed By: #### C DP, MG, CP, ALCB ####[facility] [address], [place] [phone] Director: Reji Son DO Albumin [Mass/Vol] 4.0 g/dL Normal 3.5-5.2 [facility] Comment on above: Performed By: #### C DP, MG, CP, ALCB ####[facility] [address] [facility].[place], [place] [phone] Director: Reji Son DO Alkaline Phos 93 U/L Normal 40-129 [facility] Comment on above: Performed By: #### C DP, MG, CP, ALCB ####[facility] [id number], [place] [phone] Director: Reji Son DO Anion gap [Moles/Vol] 12 mmol/L Normal 9-17 [facility] Comment on above: Performed By: #### C DP, MG, CP, ALCB ####[facility] [id number] [place] [address] Lab Director: Reji Son DO AST [Catalytic activity/Vol] 16 U/L Normal <40 [facility] Comment on above: Performed By: #### C DP, MG, CP, ALCB ####[facility] [address] [place] [address] lab Director: Reji Son DO Bilirubin [Mass/Vol] 0.8 mg/dL Normal 0.3-1.2 [facility] Comment on above: Performed By: #### C DP, MG, CP, ALCB ####[facility] [id number] [place] [address] lab Director: Reji Son DO Calcium [Mass/Vol] 9.2 mg/dL Normal 8.6-10.4 [facility] Comment on above: Performed By: #### C DP, MG, CP, ALCB ####[facility] [address] [place] [address] Lab Director: Reji Son DO Chloride [Moles/Vol] 104 mmol/L Normal 98-107 [facility] Comment on above: Performed By: #### C DP, MG, CP, ALCB ####[facility] [address] [place] [address] Lab Director: Reji Son DO CO2 [Moles/Vol] 21 mmol/L Normal 20-31 [facility] Comment on above: Performed By: #### C DP, MG, CP, ALCB ####[facility] [address] [place] [address] Lab Director: Reji Son DO Creatinine [Mass/Vol] 0.7 mg/dL Normal 0.7-1.2 [facility] Comment on above: Performed By: #### C DP, MG, CP, ALCB ####[facility] [id number] [facility] [place] [address] Lab Director: Reji Son DO GFR/1.73 sq M.predicted among non-blacks MDRD (S/P/Bld) [Vol rate/Area] mL/min/{1.73_m2} Normal >60 [facility] Comment on above: Result Comment: These results are not intended for use in patients <18 years of age. eGFR results are calculated without a race factor using the 2020 CKD-EPI equation. Careful clinical correlation is recommended, particularly when comparing to results calculated using previous equations. The CKD-EPI equation is less accurate in patients with extremes of muscle mass, extra-renal metabolism of creatine, excessive creatine ingestion, or following therapy that affects renal tubular secretion. Performed By: #### C DP, MG, CP, ALCB ####[facility] [id number] [facility] [place] [address] Lab Director: Reji Sno DO Glucose [Mass/Vol] 161 mg/dL High 70-99 [facility] Comment on above: Performed By: #### C DP, MG, CP, ALCB ####[facility] [id number] [facility] [address] Lab Director: Reji Son DO Potassium [Moles/Vol] 4.0 mmol/L Normal 3.7-5.3 [facility] Comment on above: Performed By: #### C DP, MG, CP, ALCB ####[facility] [id number] [facility] [place] [address] Lab Director: Reji Son DO Protein [Mass/Vol] 6.5 g/dL Normal 6.4-8.3 [facility] Comment on above: Performed By: #### C DP, MG, CP, ALCB ####[facility] [id number] [facility] [place] [address] Lab Director: Reji Son DO Sodium [Moles/Vol] 137 mmol/L Normal 135-144 [facility] Comment on above: Performed By: #### C DP, MG, CP, ALCB ####[facility] [id number] [place] [address] Lab Director: Reji Son DO Urea nitrogen [Mass/Vol] 16 mg/dL Normal 8-23 [facility] Comment on above: Performed By: #### C DP, MG, CP, ALCB ####[facility] [address] [place] [address] Lab Director: Reji Son DO Drug Scr, Abuse, Uron 2023 Amphetamine(s),Ur Negative Normal NEG [facility] Comment on above: Result Comment: (Positive cutoff 1000 ng/mL) Performed By: #### U AX, JABIER ####[facility] [id number] [place] [address] Lab Director: Reji Son DO Barbiturate(s),Ur Negative Normal NEG [facility] Comment on above: Result Comment: (Positive cutoff 200 ng/mL) Performed By: #### U AX, JABIER ####[address] [address] Lab Director: Reji Son DO Benzodiazepine(s) Negative Normal NEG [facility] Comment on above: Result Comment: (Positive cutoff 200 ng/mL) Performed By: #### U AX, JABIER ####[address] [address] Lab Director: Reji Son DO Cannabinoid(s),Ur Negative Normal NEG [facility] Comment on above: Result Comment: (Positive cutoff 50 ng/mL) Performed By: #### U AX, JABIER ####[address] [place] [address] Lab Director: Reji Son DO Cocaine Metabolite Negative Normal NEG [facility] Comment on above: Result Comment: (Positive cutoff 300 ng/mL) Performed By: #### U AX, JABIER ####[address] [phone] Director: Reji Son DO Fentanyl, Urine Negative Normal NEG [facility] Comment on above: Result Comment: (Positive cutoff 5 ng/ml) Performed By: #### U AX, JABIER ####[address] [phone] Director: Reji Son DO Interpretive Info Assay provides medical screening only. The absence of expected drug(s) and/or Normal [facility] Comment on above: Result Comment: meta bolite(s) may indicate diluted or adulterated urine, limitations of testing or timing of collection. Testing for legal purposes should be confirmed by another method. To request confirmation of test result, please call the lab within 7 days of sample submission. Performed By: #### U AX, JABIER ####[address] [address] Lab Director: Reji Son DO Methadone Ql (U) Negative Normal NEG [facility] Comment on above: Result Comment: (Positive cutoff 300 ng/mL) Performed By: #### U AX, JABIER ####[facility] [id number] [place] [address] Lab Director: Reji Son DO Opiate(s), Ur Negative Normal NEG [facility] Comment on above: Result Comment: (Positive cutoff 300 ng/mL) Performed By: #### U AX, JABIER ####[facility] [id number] [place] [address] Lab Director: Fanelly, Reji, DO Oxycodone, Urine Negative Normal NEG [facility] Comment on above: Result Comment: (Positive cutoff 100 ng/mL) Performed By: #### U AX, JABIER ####[facility] [address] [place] [address] Lab Director: Reji Son DO Phencyclidine, Ur Negative Normal NEG [facility] Comment on above: Result Comment: (Positive cutoff 25 ng/mL) Performed By: #### U AX, JABIER ####[facility] [id number] [place] [address] lab Director: Reji Son DO Ethanol Alcoholon 07-18-2023 Ethanol [Mass/Vol] mg/dL Normal <10 [facility] Comment on above: Performed By: #### C DP, MG, CP, ALCB ####[address] [address] Lab Director: Reji Son DO Ethanol percent <0.010 Normal [facility] Comment on above: Performed By: #### C DP, MG, CP, ALCB ####[address] [address] Lab Director: Reji Son DO Glucose,Whole Bloodon 2023 Glucose [Mass/Vol] 126 mg/dL High 75-110 [facility] Magnesiumon 07-18-2023 Magnesium [Mass/Vol] 1.8 mg/dL Normal 1.6-2.6 [facility] Comment on above: Performed By: #### C DP, MG, CP, ALCB ####[facility] [id number] [place] [address] Lab Director: Reji Son DO UA w/Reflex Cultureon 2023 Bilirubin, SemiQt,Ur Negative Normal NEG [facility] Comment on above: Performed By: #### U AX, JABIER ####[facility] [id number] [facility] [place] [address] Lab Director: Reji Son DO Blood, Urine Negative Normal NEG [facility] Comment on above: Performed By: #### U AX, JABIER ####[facility] [id number] [facility] [address] Lab Director: Reji Son DO Clarity (U) Clear Normal CLEAR [facility] Comment on above: Performed By: #### U AX, JABIER ####[facility] [id number] [facility].[place], [place] [phone] Director: Reji Son DO Color (U) Yellow Normal YEL [facility] Comment on above: Performed By: #### U AX, JABIER ####[facility] [id number] [place] [address].[place] [address] Lab Director: Reji Son DO Comment Microscopic exam not performed based on chemical results unless requested in Normal [facility] Comment on above: Result Comment: orig inal order. Performed By: #### U AX, JABIER ####[facility] [id number] [facility].[place], [place] [phone] Director: Reji Son DO Glucose Ql (U) Negative Normal NEG [facility] Comment on above: Performed By: #### U AX, JABIER ####[facility] [id number] [facility].[place], [place] [phone] Director: Reji Son DO Ketones Ql (U) TRACE Abnormal NEG [facility] Comment on above: Performed By: #### U AX, JABIER ####[facility] [id number] [facility] [place] [address] Lab Director: Reji Son DO Leukocyte esterase Test strip Ql (U) Negative Normal NEG [facility] Comment on above: Performed By: #### U AX, JABIER ####[facility] [id number] [facility] [place] [address] [facility] Director: Reji Son DO Nitrite,Ur Negative Normal NEG [facility] Comment on above: Performed By: #### U AX, JABIER ####[facility] [id number] [place], [place] [id number])[phone] Director: Reji Son DO PH,Ur 5.5 Normal 5.0-8.0 [facility] Comment on above: Performed By: #### U AX, JABIER ####[address] [address])[phone] Director: Reji Son DO Protein Ql (U) Negative Normal NEG [facility] Comment on above: Performed By: #### U AX, JABIER ####[facility] [id number] [place] [address] lab Director: Reji Son DO Spec. [place],Ur 1.011 Normal 1.000-1.030 [facility] Comment on above: Performed By: #### U AX, JABIER ####[facility] [id number] [place] [address])[phone] Director: Reji Son DO Urobilinogen,Ur Normal Normal 0.0-1.0 [facility] Comment on above: Performed By: #### U AX, JABIER ####[facility] Kpm[address] [place], [place] [address])[phone] Director: Reji Son DO Basic Metab w/rfx MGon 06-16 Anion gap [Moles/Vol] 11 mmol/L Normal 9-17 [facility] Comment on above: Performed By: #### B MPX, CDP ####[facility] [id number] [facility] [address] Lab Director: Reji Son DO Calcium [Mass/Vol] 8.6 mg/dL Normal 8.6-10.4 [facility] Comment on above: Performed By: #### B MPX, CDP ####[facility] [id number] [facility] [address] Lab Director: Reji Son DO Chloride [Moles/Vol] 103 mmol/L Normal 98-107 [facility] Comment on above: Performed By: #### B MPX, CDP ####[facility] [id number] [facility] [address] lab Director: Reji Son DO CO2 [Moles/Vol] 23 mmol/L Normal 20-31 [facility] Comment on above: Performed By: #### B MPX, CDP ####[facility] [id number] [facility] [address] Lab Director: Reji Son DO Creatinine [Mass/Vol] 0.9 mg/dL Normal 0.7-1.2 [facility] Comment on above: Performed By: #### B MPX, CDP ####[facility] Ody[address] [facility] [address] Lab Director: Reji Son DO GFR/1.73 sq M.predicted among non-blacks MDRD (S/P/Bld) [Vol rate/Area] mL/min/{1.73_m2} Normal >60 [facility] Comment on above: Result Comment: These results are not intended for use in patients <18 years of age. eGFR results are calculated without a race factor using the 2020 CKD-EPI equation. Careful clinical correlation is recommended, particularly when comparing to results calculated using previous equations. The CKD-EPI equation is less accurate in patients with extremes of muscle mass, extra-renal metabolism of creatine, excessive creatine ingestion, or following therapy that affects renal tubular secretion. Performed By: #### B MPX, CDP ####[facility] [id number] [facility] [address] Lab Director: Reji Son DO Glucose [Mass/Vol] 181 mg/dL High 70-99 [facility] Comment on above: Performed By: #### B MPX, CDP ####[facility] [id number] [facility] [address] Lab Director: Reji Son DO Potassium [Moles/Vol] 4.6 mmol/L Normal 3.7-5.3 [facility] Comment on above: Performed By: #### B DAVIDX, CDP ####[facility] [id number] [facility] [address] Lab Director: Reji Son DO Sodium [Moles/Vol] 137 mmol/L Normal 135-144 [facility] Comment on above: Performed By: #### B MPX, CDP ####[facility] [id number] [facility] [address] Lab Director: Reji Son DO Urea nitrogen [Mass/Vol] 13 mg/dL Normal 8-23 [facility] Comment on above: Performed By: #### Tommy MPX, CDP ####[facility] [id number] [facility] [address] Lab Director: Reji Son DO Basic Metabolic Panel w/ Ref melina to MGon 06-17-2023 Anion gap [Moles/Vol] 11 mmol/L 9 - 17 mmol/L [facility] Calcium [Mass/Vol] 8.6 mg/dL 8.6 - 10. 4 mg/dL [facility] Chloride [Moles/Vol] 103 mmol/L 98 - 10 7 mmol/L [facility] CO2 [Moles/Vol] 23 mmol/L 20 - 31 mmol/L [facility] Creatinine [Mass/Vol] 0.9 mg/dL 0.7 - 1.2 mg/dL [facility] GFR/1.73 sq M.predicted MDRD (S/P/Bld) [Vol rate/Area] - PINF [facility] Comment on above: These results are not intended for use in patients <18 years of age. eGFR results are calculated without a race factor using the 2020 CKD-EPI equation. Careful clinical correlation is recommended, particularly when comparing to results calculated using previous equations. The CKD-EPI equation is less accurate in patients with extremes of muscle mass, extra-renal metabolism of creatine, excessive creatine ingestion, or following therapy that affects renal tubular secretion. Glucose [Mass/Vol] 181 mg/dL High 70 - 99 mg/dL [facility] Interpretation and review of laboratory results Abnormal [facility] Potassium [Moles/Vol] 4.6 mmol/L 3.7 - 5.3 mmol/L [facility] Sodium [Moles/Vol] 137 mmol/L 135 - 144 mmol/L [facility] Urea nitrogen [Mass/Vol] 13 mg/dL 8 - 23 mg/dL [facility] CBC with Auto Differentialon 06-17-2023 Basophils (Bld) [#/Vol] 0.10 10*3/uL [facility] Basophils/100 WBC (Bld) 1 % 0 - 2 % [facility] Eosinophils (Bld) [#/Vol] 0.20 10*3/uL [facility] Eosinophils/100 WBC (Bld) 2 % 0 - 4 % [facility] Erythrocyte distribution width (RBC) [Ratio] 13.6 % 11.5 - 14.9 % [facility] Hematocrit (Bld) [Volume fraction] 46.3 % 41 - 53 % [facility] Hemoglobin (Bld) [Mass/Vol] 14.9 g/dL 13.5 - 17.5 g/dL [facility] Interpretation and review of laboratory results Abnormal [facility] Lymphocytes/100 WBC (Bld) 17 % Low 24 - 44 % [facility] Lymphocytes/100 WBC (Bld) 1.30 % [facility] MCH (RBC) [Entitic mass] 29.2 pg 26 - 34 pg [facility] MCHC (RBC) [Mass/Vol] 32.1 g/dL 31 - 37 g/dL [facility] MCV (RBC) [Entitic vol] 90.9 fL 80 - 100 fL [facility] Monocytes/100 WBC (Bld) 10 % High 1 - 7 % [facility] Monocytes/100 WBC (Bld) 0.70 % [facility] Neutrophils/100 WBC (Bld) 70 % High 36 - 66 % [facility] Platelet mean volume (Bld) [Entitic vol] 7.3 fL 6.0 - 12.0 fL [facility] Platelets (Bld) [#/Vol] 343 10*3/uL [facility] RBC (Bld) [#/Vol] 5.09 10*6/uL 4.5 - 5.9 m/uL [facility] Segmented neutrophils/100 WBC (Bld) 5.30 % [facility] WBC other (Bld) [#/Vol] 7.6 [facility] CBC with Diffon 06-17-2023 Abs. Basophil 0.10 k/uL Normal 0.0-0.2 [facility] Comment on above: Performed By: #### B DAVIDX, TIESHA ####[facility] [id number] [place] [address] Lab Director: Reji Son DO Abs.Neutrophil (Seg) 5.30 k/uL Normal 1.3-9.1 [facility] Comment on above: Performed By: #### B MPX, CDP ####[facility] [id number] [place] [address] Lab Director: Reji Son DO Basophils/100 WBC (Bld) 1 % Normal 0-2 [facility] Comment on above: Performed By: #### B MPX, CDP ####[facility] [id number] [place] [address] Lab Director: Reji Son DO Eosinophils (Bld) [#/Vol] 0.20 10*3/uL Normal 0.0-0.4 [facility] Comment on above: Performed By: #### B MPX, CDP ####[facility] [id number] [place] [address] Lab Director: Reji Son DO Eosinophils/100 WBC (Bld) 2 % Normal 0-4 [facility] Comment on above: Performed By: #### B MPX, CDP ####[facility] [id number] [facility] [address] Lab Director: Reji Son DO Erythrocyte distribution width (RBC) [Ratio] 13.6 % Normal 11.5-14.9 [facility] Comment on above: Performed By: #### B DAVIDX, TIESHA ####[facility] [id number] [facility] [address] Lab Director: Reji Son DO Hematocrit (Bld) [Volume fraction] 46.3 % Normal 41-53 [facility] Comment on above: Performed By: #### B MPX, TIESHA ####[facility] [id number] [facility] [address] Lab Director: Reji Son DO Hemoglobin (Bld) [Mass/Vol] 14.9 g/dL Normal 13.5-17.5 [facility] Comment on above: Performed By: #### B MPX, CDP ####[facility] [id number] [facility] [address] Lab Director: Reji Son DO Lymphocytes (Bld) [#/Vol] 1.30 10*3/uL Normal 1.0-4.8 [facility] Comment on above: Performed By: #### B MPX, CDP ####[facility] [id number] [facility] [address] Lab Director: Reji Son DO Lymphocytes/100 WBC (Bld) 17 % Low 24-44 [facility] Comment on above: Performed By: #### Tommy HERNANDEZX, CDP ####[facility] [id number] [place] [address] Lab Director: Reji Son DO MCH (RBC) [Entitic mass] 29.2 pg Normal 26-34 [facility] Comment on above: Performed By: #### Tommy HERNANDEZX, CDP ####[facility] [id number] [facility] [address] lab Director: Reji Son DO MCHC (RBC) [Mass/Vol] 32.1 g/dL Normal 31-37 [facility] Comment on above: Performed By: #### Tommy KISER, CDP ####[facility] [id number] [facility] [address] Lab Director: Reji Son DO MCV (RBC) [Entitic vol] 90.9 fL Normal 80-100 [facility] Comment on above: Performed By: #### Tommy KISER, TIESHA ####[facility] [id number] [facility] [address] Lab Director: Reji Son DO Monocytes (Bld) [#/Vol] 0.70 10*3/uL Normal 0.1-1.3 [facility] Comment on above: Performed By: #### Tommy MPX, CDP ####[facility] [id number] [facility] [address] lab Director: Reji Son DO Monocytes/100 WBC (Bld) 10 % High 1-7 [facility] Comment on above: Performed By: #### B MPX, CDP ####[facility] [id number] [facility] [address] Lab Director: Reji Son DO Neutrophil (Seg) 70 % High 36-66 [facility] Comment on above: Performed By: #### B MPX, CDP ####[facility] [id number], [place] [phone] Director: Reji Son DO Platelet mean volume (Bld) [Entitic vol] 7.3 fL Normal 6.0-12.0 [facility] Comment on above: Performed By: #### B MPX, CDP ####[facility] [id number], [place] [phone] Director: Reji Son DO Platelets (Bld) [#/Vol] 343 10*3/uL Normal 150-450 [facility] Comment on above: Performed By: #### Tommy MPX, CDP ####[facility] [id number] [facility], [place] [phone] Director: Reji Son DO RBC (Bld) [#/Vol] 5.09 10*6/uL Normal 4.5-5.9 [facility] Comment on above: Performed By: #### Tommy MPX, CDP ####[facility] [id number] [facility], [place] [phone] Director: Reji Son DO WBC (Bld) [#/Vol] 7.6 10*3/uL Normal 3.5-11.0 [facility] Comment on above: Performed By: #### B MPX, CDP ####[facility] [id number] [facility], [place] [phone] Director: Reji Son DO Cortisolon 06-17-2023 Cortisol 20.2 ug/dL High 2.5-19.5 [facility] Comment on above: Result Comment: Cortisol Reference Range: AM 6.0-18.4 PM 2.7-10.5 Performed By: #### T SH ####[facility] [id number] [place] [address] Lab Director: Reji Son DO#### [id number] ####[facility] [place] [address] lab Director: Norberto Condon MD EEG awake and asleepon 06-16 Nash Sanders MD 06/17/2023 4:40 PM EEG REPORT CLINICAL NEUROPHYSIOLOGY LABORATORY DEPARTMENT OF NEUROLOGY [facility] Patient: Susie Boyce Age: 72 y.o. Referring Provider: No ref. provider found History: This routine 30 minute scalp EEG was recorded with video- monitoring for a 72 y.o.. male who presented with encephalopathy. This EEG was performed to evaluate for focal and epileptiform abnormalities. Susie Boyce Current Facility-Administered Medications Medication Dose Route Frequency Provider Last Rate Last Admin sodium chloride flush 0.9 % injection 10 mL 10 mL IntraVENous PRN Johan Wiseman DO 10 mL at 06/17/23 1256 sodium chloride flush 0.9 % injection 5-40 mL 5-40 mL IntraVENous 2 times per day Rodriguez Bernal MD 10 mL at 06/17/23 1016 sodium chloride flush 0.9 % injection 5-40 mL 5-40 mL IntraVENous PRN Rodriguez Bernal MD 0.9 % sodium chloride infusion IntraVENous PRN Rodriguez Bernal MD potassium chloride (KLOR-CON M) extended release tablet 40 mEq 40 mEq Oral PRN Rodriguez Bernal MD Or potassium bicarb-citric acid (EFFER-K) effervescent tablet 40 mEq 40 mEq Oral PRN Rodriguez Bernal MD Or potassium chloride 10 mEq/100 mL IVPB (Peripheral Line) 10 mEq IntraVENous PRN Rodriguez Bernal MD magnesium sulfate 2000 mg in water 50 mL IVPB 2,000 mg IntraVENous PRN Rodriguez Bernal MD enoxaparin (LOVENOX) injection 40 mg 40 mg SubCUTAneous Daily Rodriguez Bernal MD 40 mg at 06/17/23 0953 ondansetron (ZOFRAN-ODT) disintegrating tablet 4 mg 4 mg Oral Q8H PRN Rodriguez Bernal MD Or ondansetron (ZOFRAN) injection 4 mg 4 mg IntraVENous Q6H PRN Rodriguez Bernal MD polyethylene glycol (GLYCOLAX) packet 17 g 17 g Oral Daily PRN Rodriguez Bernal MD acetaminophen (TYLENOL) tablet 650 mg 650 mg Oral Q6H PRN Rodriguez Bernal MD Or acetaminophen (TYLENOL) suppository 650 mg 650 mg Rectal Q6H PRN Rodriguez Bernal MD atorvastatin (LIPITOR) tablet 40 mg 40 mg Oral QAM Rodriguez Bernal MD carbidopa-levodopa (SINEMET) 25-250 MG per tablet 1 tablet 1 tablet Oral 4x Daily Rodriguez Bernal MD 1 tablet at 06/17/23 1005 donepezil (ARICEPT) tablet 15 mg 15 mg Oral Nightly Rodriguez Bernal MD 15 mg at 06/16/231958 FLUoxetine (PROZAC) capsule 20 mg 20 mg Oral Daily Rodriguez Bernal MD 20 mg at 06/17/23 0953 FLUoxetine (PROZAC) capsule 40 mg 40 mg Oral Daily Rodriguez Bernal MD 40 mg at 06/17/23 0956 insulin glargine (LANTUS) injection vial 15 Units 15 Units SubCUTAneous Daily Rodriguez Bernal MD 15 Units at 06/17/23 0951 midodrine (PROAMATINE) tablet 2.5 mg 2.5 mg Oral TID WC Rodriguez Bernal MD 2.5 mg at 06/17/23 0953 pyRIDostigmine (MESTINON) tablet 30 mg 30 mg Oral Nightly Rodriguez Bernal MD 30 mg at 06/16/231958 pyRIDostigmine (MESTINON) tablet 60 mg 60 mg Oral Daily Rodriguez Bernal MD 60 mg at 06/17/23 0955 glucose chewable tablet 16 g 4 tablet Oral PRN Rodriguez Bernal MD dextrose bolus 10% 125 mL 125 mL IntraVENous PRN Rodriguez Bernal MD Or dextrose bolus 10% 250 mL 250 mL IntraVENous PRN Rodriguez Bernal MD glucagon injection 1 mg 1 mg SubCUTAneous PRN Rodriguez Bernal MD dextrose 10 % infusion IntraVENous Continuous PRN Rodriguez Bernal MD Technical Description: This is a 21 channel digital EEG recording with time-locked video. Electrodes were placed in accordance with the 10-20 International System of Electrode Placement. Single lead EKG monitoring as well as temporal electrodes were included. The patient was not sleep deprived. This recording was obtained during wakefulness. EEG Description: The dominant background activity during maximal recorded wakefulness consisted of bioccipitally dominant 8 Hz, 25-35 uV symmetric, regular activity that was reactive to eye opening. During drowsiness, the background rhythm waxed and waned and there were periods of slowing. Photic stimulation - stepwise photic stimulation at 2-30 Hz was performed and there was a biposterior, symmetric, driving response. Hyperventilation - was not preformed. No abnormalities were activated by photic stimulation The EKG channel demonstrated a normal sinus rhythm. Interpretation This EEG was normal in wakefulness and drowsiness. Clinical correlation This EEG was normal. No focal or epileptiform abnormalities were seen. Nash Sanders MD [facility] EEG awake and asleepOrdered By: Nash Sanders on 06-17-2023 [facility] Work Phone: Glucose,Whole Bloodon 2023 Glucose [Mass/Vol] 184 mg/dL High 75-110 [facility] Glucose [Mass/Vol] 167 mg/dL High 75-110 [facility] Glucose [Mass/Vol] 178 mg/dL High 75-110 [facility] POC Glucose Fingerstickon Glucose [Mass/Vol] 184 mg/dL High 75 - 110 mg/dL [facility] Interpretation and review of laboratory results Abnormal [facility] Glucose [Mass/Vol] 167 mg/dL High 75 - 110 mg/dL [facility] Interpretation and review of laboratory results Abnormal [facility] Glucose [Mass/Vol] 178 mg/dL High 75 - 110 mg/dL [facility] Interpretation and review of laboratory results Abnormal [facility] T4on 06-17-2023 T4 [Mass/Vol] 7.2 ug/dL 4.5 - 11.7 ug/dL [facility] TSHon 06-17-2023 TSH Qn 1.53 m[IU]/L [facility] Thyroid Stim. Horm.on 2023 Thyroid Stim. Horm. 1.53 uIU/mL Normal 0.30-5.00 [facility] Comment on above: Performed By: #### T SH ####[facility] [id number] [place] [address] [facility] Director: Reji Son DO#### T4, CORTI ####[facility] [place] [address] lab Director: Norberto Condon MD Thyroxine T4on 06-17-2023 T4 [Mass/Vol] 7.2 ug/dL Normal 4.5-11.7 [facility] Comment on above: Performed By: #### T SH ####[facility] [id number] [place] [address] [facility] Director: Reji Son DO#### T4, CORTI ####[facility] [place] [address] lab Director: Norberto Condon MD Basic Metabolic Panelon 05-29 Anion gap [Moles/Vol] 9 mmol/L 9 - 17 mmol/L [facility] Calcium [Mass/Vol] 9.0 mg/dL 8.6 - 10. 4 mg/dL [facility] Chloride [Moles/Vol] 103 mmol/L 98 - 10 7 mmol/L [facility] CO2 [Moles/Vol] 26 mmol/L 20 - 31 mmol/L [facility] Creatinine [Mass/Vol] 0.8 mg/dL 0.7 - 1.2 mg/dL [facility] GFR/1.73 sq M.predicted MDRD (S/P/Bld) [Vol rate/Area] - PINF [facility] Comment on above: These results are not intended for use in patients <18 years of age. eGFR results are calculated without a race factor using the 2020 CKD-EPI equation. Careful clinical correlation is recommended, particularly when comparing to results calculated using previous equations. The CKD-EPI equation is less accurate in patients with extremes of muscle mass, extra-renal metabolism of creatine, excessive creatine ingestion, or following therapy that affects renal tubular secretion. Glucose [Mass/Vol] 91 mg/dL 70 - 99 mg/dL [facility] Potassium [Moles/Vol] 4.2 mmol/L 3.7 - 5.3 mmol/L [facility] Sodium [Moles/Vol] 138 mmol/L 135 - 144 mmol/L [facility] Urea nitrogen [Mass/Vol] 14 mg/dL 8 - 23 mg/dL [facility] Basic Metabolic Profon 06-15 Anion gap [Moles/Vol] 9 mmol/L Normal 9-17 [facility] Comment on above: Performed By: #### B STAINED GLASS JOINER, CDP, BMP, TROPI ####[facility] [id number] [facility] [address] Lab Director: Reji Son, DO Calcium [Mass/Vol] 9.0 mg/dL Normal 8.6-10.4 [facility] Comment on above: Performed By: #### B STAINED GLASS JOINER, CDP, BMP, TROPI ####[facility] [id number] [facility].[place], [place] [phone] Director: Reji Son DO Chloride [Moles/Vol] 103 mmol/L Normal 98-107 [facility] Comment on above: Performed By: #### B STAINED GLASS JOINER, CDP, BMP, TROPI ####[facility] [id number] [facility] [address] Lab Director: Reji Son DO CO2 [Moles/Vol] 26 mmol/L Normal 20-31 [facility] Comment on above: Performed By: #### B STAINED GLASS JOINER, CDP, BMP, TROPI ####[facility] [id number] [facility], [place] [phone] Director: Reji Son DO Creatinine [Mass/Vol] 0.8 mg/dL Normal 0.7-1.2 [facility] Comment on above: Performed By: #### B STAINED GLASS JOINER, TIESHA, BMP, TROPI ####[facility] [id number] [facility] [place] [address] Lab Director: Reji Son DO GFR/1.73 sq M.predicted among non-blacks MDRD (S/P/Bld) [Vol rate/Area] mL/min/{1.73_m2} Normal >60 [facility] Comment on above: Result Comment: These results are not intended for use in patients <18 years of age. eGFR results are calculated without a race factor using the 2020 CKD-EPI equation. Careful clinical correlation is recommended, particularly when comparing to results calculated using previous equations. The CKD-EPI equation is less accurate in patients with extremes of muscle mass, extra-renal metabolism of creatine, excessive creatine ingestion, or following therapy that affects renal tubular secretion. Performed By: #### B STAINED GLASS JOINER, TIESHA, BMP, TROPI ####[facility] [id number] [facility] [address] Lab Director: Reji Son DO Glucose [Mass/Vol] 91 mg/dL Normal 70-99 [facility] Comment on above: Performed By: #### B ANGELICA, TIESHA, BMP, TROPI ####[facility] [id number] [facility] [place] [address] Lab Director: Reji Son DO Potassium [Moles/Vol] 4.2 mmol/L Normal 3.7-5.3 [facility] Comment on above: Performed By: #### B STAINED GLASS JOINER, CDP, BMP, TROPI ####[facility] [id number] [facility] [address] Lab Director: Reji Son DO Sodium [Moles/Vol] 138 mmol/L Normal 135-144 [facility] Comment on above: Performed By: #### B STAINED GLASS JOINER, CDP, BMP, TROPI ####[facility] [id number] [facility] [place] [address] Lab Director: Reji Son DO Urea nitrogen [Mass/Vol] 14 mg/dL Normal 8-23 [facility] Comment on above: Performed By: #### B STAINED GLASS JOINER, CDP, BMP, TROPI ####[facility] [id number] [facility] [place] [address] Lab Director: Reji Son DO Brain Natri. Peptideon 06-15 Natriuretic peptide B (Bld) [Mass/Vol] 105 pg/mL Normal <300 [facility] Comment on above: Result Comment: An age-independent cutoff point of 300 pg/ml has a 98% negative predictive value excluding acute heart failure. Performed By: #### B STAINED GLASS JOINER, CDP, BMP, TROPI ####[facility] [id number] [place] [address] Lab Director: Reji Son DO Brain Natriuretic Peptideon 06-16-2023 Natriuretic peptide B (Bld) [Mass/Vol] 105 pg/mL NINF - 300 pg/mL [facility] Comment on above: An age-independent cutoff point of 300 pg/ml has a 98% negative predictive value excluding acute heart failure. [facility] CBC with Auto Differentialon 06-16-2023 Basophils (Bld) [#/Vol] 0.00 10*3/uL [facility] Basophils/100 WBC (Bld) 1 % 0 - 2 % [facility] Eosinophils (Bld) [#/Vol] 0.20 10*3/uL [facility] Eosinophils/100 WBC (Bld) 2 % 0 - 4 % [facility] Erythrocyte distribution width (RBC) [Ratio] 14.1 % 11.5 - 14.9 % [facility] Hematocrit (Bld) [Volume fraction] 46.1 % 41 - 53 % [facility] Hemoglobin (Bld) [Mass/Vol] 15.0 g/dL 13.5 - 17.5 g/dL [facility] Interpretation and review of laboratory results Abnormal [facility] Lymphocytes/100 WBC (Bld) 14 % Low 24 - 44 % [facility] Lymphocytes/100 WBC (Bld) 1.00 % [facility] MCH (RBC) [Entitic mass] 29.5 pg 26 - 34 pg [facility] MCHC (RBC) [Mass/Vol] 32.5 g/dL 31 - 37 g/dL [facility] MCV (RBC) [Entitic vol] 90.5 fL 80 - 100 fL [facility] Monocytes/100 WBC (Bld) 9 % High 1 - 7 % [facility] Monocytes/100 WBC (Bld) 0.70 % [facility] Neutrophils/100 WBC (Bld) 74 % High 36 - 66 % [facility] Platelet mean volume (Bld) [Entitic vol] 7.4 fL 6.0 - 12.0 fL [facility] Platelets (Bld) [#/Vol] 342 10*3/uL [facility] RBC (Bld) [#/Vol] 5.09 10*6/uL 4.5 - 5.9 m/uL [facility] Segmented neutrophils/100 WBC (Bld) 5.60 % [facility] WBC other (Bld) [#/Vol] 7.5 [facility] CBC with Diffon 06-16-2023 Abs. Basophil 0.00 k/uL Normal 0.0-0.2 [facility] Comment on above: Performed By: #### B STAINED GLASS JOINER, CDP, BMP, TROPI ####[facility] [id number] [place] [address] Lab Director: Reji Son DO Abs.Neutrophil (Seg) 5.60 k/uL Normal 1.3-9.1 [facility] Comment on above: Performed By: #### B STAINED GLASS JOINER, CDP, BMP, TROPI ####[facility] [id number] [place] [address] Lab Director: Reji Son DO Basophils/100 WBC (Bld) 1 % Normal 0-2 [facility] Comment on above: Performed By: #### B STAINED GLASS JOINER, CDP, BMP, TROPI ####[facility] [id number] [facility] [address] Lab Director: Reji Son DO Eosinophils (Bld) [#/Vol] 0.20 10*3/uL Normal 0.0-0.4 [facility] Comment on above: Performed By: #### B STAINED GLASS JOINER, CDP, BMP, TROPI ####[facility] [id number] [facility] [address] Lab Director: Reji Son DO Eosinophils/100 WBC (Bld) 2 % Normal 0-4 [facility] Comment on above: Performed By: #### B STAINED GLASS JOINER, CDP, BMP, TROPI ####[address] [place] [address] Lab Director: Reji Son DO Erythrocyte distribution width (RBC) [Ratio] 14.1 % Normal 11.5-14.9 [facility] Comment on above: Performed By: #### B STAINED GLASS JOINER, CDP, BMP, TROPI ####[address] [address] Lab Director: Reji Son DO Hematocrit (Bld) [Volume fraction] 46.1 % Normal 41-53 [facility] Comment on above: Performed By: #### B STAINED GLASS JOINER, CDP, BMP, TROPI ####[facility] [id number] [place] [address].[place] [address] Lab Director: Reji Son DO Hemoglobin (Bld) [Mass/Vol] 15.0 g/dL Normal 13.5-17.5 [facility] Comment on above: Performed By: #### B STAINED GLASS JOINER, CDP, BMP, TROPI ####[facility] [id number] [place], [place] [address] [address] Lab Director: Reji Son DO Lymphocytes (Bld) [#/Vol] 1.00 10*3/uL Normal 1.0-4.8 [facility] Comment on above: Performed By: #### B STAINED GLASS JOINER, CDP, BMP, TROPI ####[facility] [id number] [facility].[place], [place] [phone] Director: Reji Son DO Lymphocytes/100 WBC (Bld) 14 % Low 24-44 [facility] Comment on above: Performed By: #### B STAINED GLASS JOINER, CDP, BMP, TROPI ####[address], [place] [phone] Director: Reji Son DO MCH (RBC) [Entitic mass] 29.5 pg Normal 26-34 [facility] Comment on above: Performed By: #### B STAINED GLASS JOINER, CDP, BMP, TROPI ####[facility] [id number] [place] [address] [phone] Director: Reji Son DO MCHC (RBC) [Mass/Vol] 32.5 g/dL Normal 31-37 [facility] Comment on above: Performed By: #### B STAINED GLASS JOINER, CDP, BMP, TROPI ####[address], [place] [phone] Director: Reji Son DO MCV (RBC) [Entitic vol] 90.5 fL Normal 80-100 [facility] Comment on above: Performed By: #### B STAINED GLASS JOINER, CDP, BMP, TROPI ####[facility] [id number] [place] [address] [phone] Director: Reji Son DO Monocytes (Bld) [#/Vol] 0.70 10*3/uL Normal 0.1-1.3 [facility] Comment on above: Performed By: #### B STAINED GLASS JOINER, CDP, BMP, TROPI ####[facility] [id number], [place] [phone] Director: Reji Son DO Monocytes/100 WBC (Bld) 9 % High 1-7 [facility] Comment on above: Performed By: #### B STAINED GLASS JOINER, CDP, BMP, TROPI ####[facility] [id number] [facility].[place], [place] [phone] Director: Reji Son DO Neutrophil (Seg) 74 % High 36-66 [facility] Comment on above: Performed By: #### B STAINED GLASS JOINER, CDP, BMP, TROPI ####[facility] [id number] [facility].[place], [place] [phone] Director: Reji Son DO Platelet mean volume (Bld) [Entitic vol] 7.4 fL Normal 6.0-12.0 [facility] Comment on above: Performed By: #### B STAINED GLASS JOINER, CDP, BMP, TROPI ####[facility] [id number] [facility].[place], [place] [phone] Director: Reji Son DO Platelets (Bld) [#/Vol] 342 10*3/uL Normal 150-450 [facility] Comment on above: Performed By: #### B STAINED GLASS JOINER, CDP, BMP, TROPI ####[facility] [id number] [facility].[place], [place] [phone] Director: Reji Son DO RBC (Bld) [#/Vol] 5.09 10*6/uL Normal 4.5-5.9 [facility] Comment on above: Performed By: #### B STAINED GLASS JOINER, CDP, BMP, TROPI ####[facility] [id number] [facility].[place], [place] [phone] Director: Reji Son DO WBC (Bld) [#/Vol] 7.5 10*3/uL Normal 3.5-11.0 [facility] Comment on above: Performed By: #### B STAINED GLASS JOINER, CDP, BMP, TROPI ####[facility] [id number] [place] [address] Lab Director: Reji Son DO Glucose,Whole Bloodon 2023 Glucose [Mass/Vol] 171 mg/dL High 75-110 [facility] Glucose [Mass/Vol] 92 mg/dL Normal 75-110 [facility] POC Glucose Fingerstickon Glucose [Mass/Vol] 171 mg/dL High 75 - 110 mg/dL [facility] Interpretation and review of laboratory results Abnormal [facility] Glucose [Mass/Vol] 92 mg/dL 75 - 110 mg/dL [facility] Portable XR Chest AP single viewon 06-16-2023 No acute airspace disease identified. [facility] EXAMINATION: ONE XRAY VIEW OF THE CHEST 06/16/2023 11:47 am COMPARISON: None. HISTORY: ORDERING SYSTEM PROVIDED HISTORY: chest pain, syncope TECHNOLOGIST PROVIDED HISTORY: chest pain, syncope Reason for Exam: chest pain, syncope FINDINGS: The cardiomediastinal silhouette is within normal limits. There is no consolidation, pneumothorax or evidence for edema. No evidence for effusion. No acute osseous abnormality is identified. [facility] Betito Williamson MD - 06/16/2023 EXAMINATION: ONE XRAY VIEW OF THE CHEST 06/16/2023 11:47 am COMPARISON: None. HISTORY: ORDERING SYSTEM PROVIDED HISTORY: chest pain, syncope TECHNOLOGIST PROVIDED HISTORY: chest pain, syncope Reason for Exam: chest pain, syncope FINDINGS: The cardiomediastinal silhouette is within normal limits. There is no consolidation, pneumothorax or evidence for edema. No evidence for effusion. No acute osseous abnormality is identified. IMPRESSION: No acute airspace disease identified. [facility] Radiology Study observation (narrative) [facility] Portable XR Chest AP single viewOrdered By: Betito Williamson on 06-16-2023 [facility] Work Phone: Troponinon 06-16-2023 Troponin I.cardiac High sensitivity method [Mass/Vol] 15 ng/L 0 - 22 ng/L [facility] Comment on above: High Sensitivity Tro ponin values cannot be compared with other Troponin methodologies. [facility] Troponin, High Sens 15 ng/L Normal 0-22 [facility] Comment on above: Result Comment: High Sensitivity Troponin values cannot be compared with other Troponin methodologies. Performed By: #### T ROPI ####[facility] [id number] [facility] [address] [facility] Director: Reji Son DO Troponin I.cardiac High sensitivity method [Mass/Vol] 17 ng/L 0 - 22 ng/L [facility] Comment on above: High Sensitivity Tro ponin values cannot be compared with other Troponin methodologies. [facility] Troponin, High Sens 17 ng/L Normal 0-22 [facility] Comment on above: Result Comment: High Sensitivity Troponin values cannot be compared with other Troponin methodologies. Performed By: #### B STAINED GLASS JOINER, CDP, BMP, TROPI ####[facility] [id number] [place] [address] lab Director: Reji Son DO XR CHEST PORTABLEon 06-16-19 XR CHEST PORTABLE EXAMINATION: ONE XRAY VIEW OF THE CHEST 06/16/2023 11:47 am COMPARISON: None. HISTORY: ORDERING SYSTEM PROVIDED HISTORY: chest pain, syncope TECHNOLOGIST PROVIDED HISTORY: chest pain, syncope Reason for Exam: chest pain, syncope FINDINGS: The cardiomediastinal silhouette is within normal limits. There is no consolidation, pneumothorax or evidence for edema. No evidence for effusion. No acute osseous abnormality is identified. IMPRESSION: No acute airspace disease identified. Interpreted by: Betito Williamson MD Signed by: Betito Williamson MD 06/16/23 Final result Normal [facility] BASIC METABOLIC PANLon 04-20 Anion gap [Moles/Vol] 9 mmol/L Normal 5-15 [facility] Comment on above: Performed By: #### C BCA, BMP, 3040-3, LIVR #### [facility] ([id number]) [address], [address] [place] [address] Calcium [Mass/Vol] 8.6 mg/dL Normal 8.5-10.5 [facility] Comment on above: Performed By: #### C BCA, BMP, 3040-3, LIVR #### [facility] ([id number]) [address], [address] [place] [address] Chloride [Moles/Vol] 104 mmol/L Normal 98-109 [facility] Comment on above: Performed By: #### C MARIA ISABEL, BMP, 3040-3, LIVR #### [facility] ([id number]) [address], [address] [place] [address] CO2 [Moles/Vol] 24 mmol/L Normal 22-32 [facility] Comment on above: Performed By: #### C BCA, BMP, 3040-3, LIVR #### [facility] ([id number]) [address], [address] [place] [address] Creatinine [Mass/Vol] 0.87 mg/dL Normal 0.60-1.30 [facility] Comment on above: Result Comment: METH OD TRACEABLE TO IDMS STANDARD Performed By: #### C MARIA ISABEL, BMP, 3040-3, LIVR #### [facility] ([id number]) [address], [address] [place] [address] eGFR (CKD-EPI) NON-RACE DEPENDENT >90 Normal >59 [facility] Comment on above: Result Comment: Reported eGFR is based on the CKD-EPI 2020 equation that does not use a race coefficient. Performed By: #### C BCA, BMP, 3040-3, LIVR #### [facility] ([id number]) [address], [address] [place] [address] Glucose [Mass/Vol] 178 mg/dL High 65-99 [facility] Comment on above: Performed By: #### C MARIA ISABEL, BMP, 3039-3, LIVR #### [facility] ([id number]) [address], [address] [place] [address] Potassium [Moles/Vol] 4.3 mmol/L Normal 3.5-5.0 [facility] Comment on above: Performed By: #### C MARIA ISABEL, BMP, 3039-3, LIVR #### [facility] ([id number]) [address], [address] [place] [address] Sodium [Moles/Vol] 137 mmol/L Normal 134-146 [facility] Comment on above: Performed By: #### C MARIA ISABEL, BMP, 3039-3, LIVR #### [facility] ([id number]) [address], [address] [place] [address] Urea nitrogen [Mass/Vol] 16 mg/dL Normal 5-27 [facility] Comment on above: Performed By: #### C MARIA ISABEL, BMP, 3039-04, LIVR #### [facility] ([id number]) [address], [address] [place] [address] CBC AND AUTO DIFFon 04-20-19 24 ABSOLUTE BASOPHIL 0.1 X10E9/L Normal 0.0-0.2 [facility] Comment on above: Performed By: #### C MARIA ISABEL, BMP, 3039-3, LIVR #### [facility] ([id number]) [address], [address] [place] [address] ABSOLUTE NEUTROPHIL 9.9 X10E9/L High 1.5-6.6 [facility] Comment on above: Performed By: #### C BCA, BMP, 0-3, LIVR #### [facility] ([id number]) [address], [address] [place] [address] Basophils/100 WBC (Bld) 0.5 % Normal [facility] Comment on above: Performed By: #### C MARIA ISABEL, BMP, 3039-04, LIVR #### [facility] ([id number]) [address] [address] [place] [address] Eosinophils (Bld) [#/Vol] 0.2 10*3/uL Normal 0.0-0.4 [facility] Comment on above: Performed By: #### C MARIA ISABEL, BMP, 3039-3, LIVR #### [facility] ([id number]) [address], [facility] [address] [place] [address] Eosinophils/100 WBC (Bld) 1.7 % Normal [facility] Comment on above: Performed By: #### C MARIA ISABEL, BMP, 3039-04, LIVR #### [facility] ([id number]) [address] [address] [place] [address] Erythrocyte distribution width (RBC) [Ratio] 13.4 % Normal 11.5-15.0 [facility] Comment on above: Performed By: #### C MARIA ISABEL, BMP, 3039-04, LIVR #### [facility] ([id number]) [address], [facility] [address] [place] [address] Hematocrit (Bld) [Volume fraction] 46.4 % Normal 39-49 [facility] Comment on above: Performed By: #### C MARIA ISABEL, BMP, 3, LIVR #### [facility] ([id number]) [address] [address] [place] [address] Hemoglobin (Bld) [Mass/Vol] 15.6 g/dL Normal 13.0-17.0 [facility] Comment on above: Performed By: #### C MARIA ISABEL, BMP, 3039-3, LIVR #### [facility] ([id number]) [address] [address] [place] [address] Lymphocytes (Bld) [#/Vol] 1.5 10*3/uL Normal 1.0-3.5 [facility] Comment on above: Performed By: #### C DARREN NICOLAS, 3039-04, LIVR #### [facility] ([id number]) [address] [facility] [address] [place] [address] Lymphocytes/100 WBC (Bld) 12.3 % Normal [facility] Comment on above: Performed By: #### C MARIA ISABEL BMP, 3039-04, LIVR #### [facility] ([id number]) [address], [facility] [address] [place] [address] MCH (RBC) [Entitic mass] 29.8 pg Normal 27-34 [facility] Comment on above: Performed By: #### C MARIA ISABEL, BMP, 3039-04, LIVR #### [facility] ([id number]) [address], [facility] [address] [place] [address] MCHC (RBC) [Mass/Vol] 33.6 g/dL Normal 32-36 [facility] Comment on above: Performed By: #### C DARREN NICOLAS, 3039-04, LIVR #### [facility] ([id number]) [address], [facility] [address] [place] [address] MCV (RBC) [Entitic vol] 89 fL Normal 80-100 [facility] Comment on above: Performed By: #### C MARIA ISABEL BMP, 3039-04, LIVR #### [facility] ([id number]) [address], [facility] [address] [place] [address] Monocytes (Bld) [#/Vol] 0.9 10*3/uL Normal 0-0.9 [facility] Comment on above: Performed By: #### C MARIA ISABEL, BMP, 3039-3, LIVR #### [facility] ([id number]) [address], [facility] [address] [place] [address] Monocytes/100 WBC (Bld) 7.0 % Normal [facility] Comment on above: Performed By: #### C DARREN NICOLAS, 3039-3, LIVR #### [facility] ([id number]) [address], [address] [place] [address] Neutrophils/100 WBC (Bld) 78.5 % Normal [facility] Comment on above: Performed By: #### C DARREN NICOLAS, 3039-3, LIVR #### [facility] ([id number]) [address], [address] [place] [address] Platelet mean volume (Bld) [Entitic vol] 7.4 fL Normal 7-12 [facility] Comment on above: Performed By: #### DARREN Springer BCA, 3039-, LIVR #### [facility] ([id number]) [address], [facility] [address] [place] [address] Platelets (Bld) [#/Vol] 442 10*3/uL Normal 150-450 [facility] Comment on above: Performed By: #### DARREN Springer BCA, 3039-3, LIVR #### [facility] ([id number]) [address], [facility] [address] [place] [address] RBC COUNT 5.23 X10E12/L Normal 4.10-5.70 [facility] Comment on above: Performed By: #### DARREN Springer BCA, 3039-3, LIVR #### [facility] ([id number]) [address], [address] [place] [address] WBC (Bld) [#/Vol] 12.5 10*3/uL High 4.0-11.0 [facility] Comment on above: Performed By: #### Racheal NICOLAS BMP, 3039-3, LIVR #### [facility] ([id number]) [address], [address] [place] [address] Glucose Glucometer (BldC) [M ass/Vol]on 04-20-2023 Glucose [Mass/Vol] 269 mg/dL High 65-99 [facility] Glucose [Mass/Vol] 162 mg/dL High 65-99 [facility] BASIC METABOLIC PANLon 04-19 Anion gap [Moles/Vol] 12 mmol/L Normal 5-15 [facility] Comment on above: Performed By: #### C BCA, BMP, 3040-3, LIVR #### [facility] ([id number]) [address], [address] [place] [address] Calcium [Mass/Vol] 9.2 mg/dL Normal 8.5-10.5 [facility] Comment on above: Performed By: #### C BCA, BMP, 3040-3, LIVR #### [facility] ([id number]) [address], [address] [place] [address] Chloride [Moles/Vol] 103 mmol/L Normal 98-109 [facility] Comment on above: Performed By: #### C BCA, BMP, 3040-3, LIVR #### [facility] ([id number]) [address], [address] [place] [address] CO2 [Moles/Vol] 25 mmol/L Normal 22-32 [facility] Comment on above: Performed By: #### C BCA, BMP, 3040-3, LIVR #### [facility] ([id number]) [address], [address] [place] [address] Creatinine [Mass/Vol] 0.93 mg/dL Normal 0.60-1.30 [facility] Comment on above: Result Comment: METH OD TRACEABLE TO IDMS STANDARD Performed By: #### C BCA, BMP, 3040-3, LIVR #### [facility] ([id number]) [address], [address] [place] [address] GFR/1.73 sq M.predicted among non-blacks MDRD (S/P/Bld) [Vol rate/Area] 87 mL/min/{1.73_m2} Normal >59 [facility] Comment on above: Result Comment: Reported eGFR is based on the CKD-EPI 2020 equation that does not use a race coefficient. Performed By: #### C MARIA ISABEL BMP, 3040-3, LIVR #### [facility] ([id number]) [address] [address] [place] [address] Glucose [Mass/Vol] 129 mg/dL High 65-99 [facility] Comment on above: Performed By: #### C BCA, BMP, 3040-3, LIVR #### [facility] ([id number]) [address] [address] [place] [address] Potassium [Moles/Vol] 3.8 mmol/L Normal 3.5-5.0 [facility] Comment on above: Performed By: #### C BCA, BMP, 0-3, LIVR #### [facility] ([id number]) [address] [address] [place] [address] Sodium [Moles/Vol] 140 mmol/L Normal 134-146 [facility] Comment on above: Performed By: #### C BCA, BMP, 0-3, LIVR #### [facility] ([id number]) [address] [address] [place] [address] Urea nitrogen [Mass/Vol] 14 mg/dL Normal 5-27 [facility] Comment on above: Performed By: #### C BCA, BMP, 3040-3, LIVR #### [facility] ([id number]) [address] [address] [place] [address] CBC AND AUTO DIFFon 20- 24 ABSOLUTE BASOPHIL 0.0 X10E9/L Normal 0.0-0.2 [facility] Comment on above: Performed By: #### C BCA, BMP, 3040-3, LIVR #### [facility] ([id number]) [address] [address] [place] [address] ABSOLUTE NEUTROPHIL 10.0 X10E9/L High 1.5-6.6 [facility] Comment on above: Performed By: #### C MARIA ISABEL, BMP, 3040-3, LIVR #### [facility] ([id number]) [address], [address] [place] [address] Basophils/100 WBC (Bld) 0.2 % Normal [facility] Comment on above: Performed By: #### C BCA, BMP, 0-3, LIVR #### [facility] ([id number]) [address], [address] [place] [address] Eosinophils (Bld) [#/Vol] 0.2 10*3/uL Normal 0.0-0.4 [facility] Comment on above: Performed By: #### C MARIA ISABEL, BMP, 3039-3, LIVR #### [facility] ([id number]) [address], [address] [place] [address] Eosinophils/100 WBC (Bld) 1.4 % Normal [facility] Comment on above: Performed By: #### C BCA, BMP, 3039-3, LIVR #### [facility] ([id number]) [address], [address] [place] [address] Erythrocyte distribution width (RBC) [Ratio] 13.4 % Normal 11.5-15.0 [facility] Comment on above: Performed By: #### C BCA, BMP, 0-3, LIVR #### [facility] ([id number]) [address], [address] [place] [address] Hematocrit (Bld) [Volume fraction] 46.3 % Normal 39-49 [facility] Comment on above: Performed By: #### C BCA, BMP, 3040-3, LIVR #### [facility] ([id number]) [address], [address] [place] [address] Hemoglobin (Bld) [Mass/Vol] 15.6 g/dL Normal 13.0-17.0 [facility] Comment on above: Performed By: #### C MARIA ISABEL BMP, 3039-, LIVR #### [facility] ([id number]) [address] [address] [place] [address] Lymphocytes (Bld) [#/Vol] 1.7 10*3/uL Normal 1.0-3.5 [facility] Comment on above: Performed By: #### C MARIA ISABEL BMP, 3039-, LIVR #### [facility] ([id number]) [address] [address] [place] [address] Lymphocytes/100 WBC (Bld) 13.3 % Normal [facility] Comment on above: Performed By: #### C MARIA ISABEL BMP, 3039-04, LIVR #### [facility] ([id number]) [address] [address] MCH (RBC) [Entitic mass] 30.1 pg Normal 27-34 [facility] Comment on above: Performed By: #### C MARIA ISABEL, BMP, 3039-04, LIVR #### [facility] ([id number]) [address] [address] MCHC (RBC) [Mass/Vol] 33.7 g/dL Normal 32-36 [facility] Comment on above: Performed By: #### C MARIA ISABEL, BMP, 3, LIVR #### [facility] ([id number]) [address] [address] [place] [address] MCV (RBC) [Entitic vol] 89 fL Normal 80-100 [facility] Comment on above: Performed By: #### C MARIA ISABEL BMP, 0-3, LIVR #### [facility] ([id number]) [address], [address] [place] [address] Monocytes (Bld) [#/Vol] 1.0 10*3/uL High 0-0.9 [facility] Comment on above: Performed By: #### C MARIA ISABEL, BMP, 3040-3, LIVR #### [facility] ([id number]) [address], [address] [place] [address] Monocytes/100 WBC (Bld) 7.9 % Normal [facility] Comment on above: Performed By: #### C MARIA ISABEL, BMP, 3040-3, LIVR #### [facility] ([id number]) [address], [facility] [address] [place] [address] Neutrophils/100 WBC (Bld) 77.2 % Normal [facility] Comment on above: Performed By: #### C MARIA ISABEL, BMP, 0-3, LIVR #### [facility] ([id number]) [address], [address] [place] [address] Platelet mean volume (Bld) [Entitic vol] 7.2 fL Normal 7-12 [facility] Comment on above: Performed By: #### C MARIA ISABEL, BMP, 3039-3, LIVR #### [facility] ([id number]) [address], [address] [place] [address] Platelets (Bld) [#/Vol] 470 10*3/uL High 150-450 [facility] Comment on above: Performed By: #### C MARIA ISABEL, BMP, 3040-3, LIVR #### [facility] ([id number]) [address], [address] [place] [address] RBC COUNT 5.20 X10E12/L Normal 4.10-5.70 [facility] Comment on above: Performed By: #### C MARIA ISABEL, BMP, 3040-3, LIVR #### [facility] ([id number]) [address], [address] [place] [address] WBC (Bld) [#/Vol] 12.9 10*3/uL High 4.0-11.0 [facility] Comment on above: Performed By: #### C BCA, BMP, 3040-3, LIVR #### [facility] ([id number]) [address] [place] [address], [address] [place] [address] Glucose Glucometer (BldC) [M ass/Vol]on 04-19-2023 Glucose [Mass/Vol] 232 mg/dL High 65-99 [facility] Glucose [Mass/Vol] 123 mg/dL High 65-99 [facility] Glucose [Mass/Vol] 129 mg/dL High 65-99 [facility] Surgical Pathologyon 024 Surgical Pathology Normal [facility] Comment on above: Result Comment: [facility] [address] [place] [id number] Surgical Pathology Consultation Patient Name:SUSIE BOYCE:1950 (Age: 72)Gender:MTaken:04/19/2023eported:04/21/2023hysician(s):Andrzej Fine MD ( )Copy To: Rec. #:[id number]: #[id number] Final Pathologic Diagnosis 1. Cecal colon polyp: Tubular adenoma. 2. Colon, random biopsy: Hyperplastic polyp fragments. 3. Ascending colon polyp: Tubular adenoma. 4. Descending colon polyp: Tubular adenoma. Report Electronically Signed Out st/04/21/2023Lorin Campos MD Interpretation performed at [facility], [address] [facility] [address], License number: [id number]. Clinical History Melena. 2. Rule out microscopic colitis. Gross Description 1. Received in formalin labeled [facility], #1: Cecal colon polyp are 2 lockett bits of soft tissue, each 0.3 cm in greatest dimension. Filtered and submitted in a single cassette. (1, ns, [id number], m7) MG 2. Received in formalin labeled [facility], #2: Random colon biopsy rule out microscopic colitis are 8 lockett bits/strips of soft tissue, ranging from 0.2-0.7 cm in greatest dimension. Filtered and submitted in a single cassette. (1, ns, [id number], m7) MG 3. Received in formalin labeled [facility], #3: Ascending colon polyp are 4 lockett bits/strips of soft tissue, ranging from 0.1-0.6 cm in greatest dimension. Filtered and submitted in a single cassette. (1, ns, [id number], m7) MG 4. Received in formalin labeled [facility], #4: Descending colon polyp are 3 lockett bits of soft tissue, ranging from 0.4-0.5 cm in greatest dimension. Filtered and submitted in a single cassette. (1, ns, [id number], m7) MG mjg/04/19/2023EAK Specimen(s) Received 1: Cecal colon polyp 2: Colon, random biopsy 3: Ascending colon polyp 4: Descending colon polyp Fee Codes(s): 1; 48366 2; 48339 3; 69067 4; 96923 BASIC METABOLIC PANLon 04-18 Anion gap [Moles/Vol] 7 mmol/L Normal 5-15 [facility] Comment on above: Performed By: #### C BCA, BMP, 3040-3, LIVR #### [facility] ([id number]) [address], [address] [place] [address] Calcium [Mass/Vol] 8.8 mg/dL Normal 8.5-10.5 [facility] Comment on above: Performed By: #### C BCA, BMP, 3040-3, LIVR #### [facility] ([id number]) [address], [address] [place] [address] Chloride [Moles/Vol] 102 mmol/L Normal 98-109 [facility] Comment on above: Performed By: #### C BCA, BMP, 3040-3, LIVR #### [facility] ([id number]) [address], [address] [place] [address] CO2 [Moles/Vol] 29 mmol/L Normal 22-32 [facility] Comment on above: Performed By: #### C DARREN NICOLAS, 3039-3, LIVR #### [facility] ([id number]) [address], [address] [place] [address] Creatinine [Mass/Vol] 0.90 mg/dL Normal 0.60-1.30 [facility] Comment on above: Result Comment: METH OD TRACEABLE TO IDMS STANDARD Performed By: #### C DARREN NICOLAS, 3039-, LIVR #### [facility] ([id number]) [address], [address] [place] [address] eGFR (CKD-EPI) NON-RACE DEPENDENT >90 Normal >59 [facility] Comment on above: Result Comment: Reported eGFR is based on the CKD-EPI 2020 equation that does not use a race coefficient. Performed By: #### C DARREN NICOLAS, 3039-3, LIVR #### [facility] ([id number]) [address], [address] [place] [address] Glucose [Mass/Vol] 146 mg/dL High 65-99 [facility] Comment on above: Performed By: #### C DARREN NICOLAS, 3039-, LIVR #### [facility] ([id number]) [address], [address] [place] [address] Potassium [Moles/Vol] 3.9 mmol/L Normal 3.5-5.0 [facility] Comment on above: Performed By: #### C MARIA ISABEL BMP, 0-3, LIVR #### [facility] ([id number]) [address], [address] [place] [address] Sodium [Moles/Vol] 138 mmol/L Normal 134-146 [facility] Comment on above: Performed By: #### C DARREN NICOLAS, 3039-04, LIVR #### [facility] ([id number]) [address], [address] [place] [address] Urea nitrogen [Mass/Vol] 15 mg/dL Normal 5-27 [facility] Comment on above: Performed By: #### C DARREN NICOLAS, 3039-04, LIVR #### [facility] ([id number]) [address], [address] [place] [address] C DIFFICILE BY PCRon 024 C. difficile toxin genes EVA+probe Ql (Stl) TOXIGENIC C DIFF Negative (qualifier value) 027 NAP1 Negative (qualifier value) Normal PRNEG [facility] Comment on above: Performed By: #### C DARREN NICOLAS, 3039-04, LIVR #### [facility] ([id number]) [address], [address] [place] [address] CBC AND AUTO DIFFon 04-18-19 24 ABSOLUTE BASOPHIL 0.1 X10E9/L Normal 0.0-0.2 [facility] Comment on above: Performed By: #### C DARREN NICOLAS, 3039-04, LIVR #### [facility] ([id number]) [address] [address] ABSOLUTE NEUTROPHIL 10.0 X10E9/L High 1.5-6.6 [facility] Comment on above: Performed By: #### C DARREN NICOLAS, 3039-04, LIVR #### [facility] ([id number]) [address], [facility] [address] [place] [address] Basophils/100 WBC (Bld) 0.8 % Normal [facility] Comment on above: Performed By: #### DARREN Springer BCA, 3039-04, LIVR #### [facility] ([id number]) [address], [facility] [address] [place] [address] Eosinophils (Bld) [#/Vol] 0.2 10*3/uL Normal 0.0-0.4 [facility] Comment on above: Performed By: #### C DARREN NICOLAS, 3039-3, LIVR #### [facility] ([id number]) [address], [address] [place] [address] Eosinophils/100 WBC (Bld) 1.4 % Normal [facility] Comment on above: Performed By: #### C MARIA ISABEL, BMP, 3, LIVR #### [facility] ([id number]) [address], [facility] [address] [place] [address] Erythrocyte distribution width (RBC) [Ratio] 13.2 % Normal 11.5-15.0 [facility] Comment on above: Performed By: #### C MARIA ISABEL BMP, 3039-04, LIVR #### [facility] ([id number]) [address], [facility] [address] [place] [address] Hematocrit (Bld) [Volume fraction] 43.1 % Normal 39-49 [facility] Comment on above: Performed By: #### C MARIA ISABEL BMP, 3039-04, LIVR #### [facility] ([id number]) [address], [facility] [address] [place] [address] Hemoglobin (Bld) [Mass/Vol] 14.7 g/dL Normal 13.0-17.0 [facility] Comment on above: Performed By: #### C MARIA ISABEL BMP, 3, LIVR #### [facility] ([id number]) [address], [facility] [address] [place] [address] Lymphocytes (Bld) [#/Vol] 1.7 10*3/uL Normal 1.0-3.5 [facility] Comment on above: Performed By: #### C MARIA ISABEL, BMP, 3039-3, LIVR #### [facility] ([id number]) [address], [facility] [address] [place] [address] Lymphocytes/100 WBC (Bld) 13.1 % Normal [facility] Comment on above: Performed By: #### C MARIA ISABEL BMP, 0-3, LIVR #### [facility] ([id number]) [address], [address] [place] [address] MCH (RBC) [Entitic mass] 30.2 pg Normal 27-34 [facility] Comment on above: Performed By: #### C MARIA ISABEL BMP, 3039-3, LIVR #### [facility] ([id number]) [address], [address] [place] [address] MCHC (RBC) [Mass/Vol] 34.1 g/dL Normal 32-36 [facility] Comment on above: Performed By: #### C MARIA ISABEL, BMP, 3039-3, LIVR #### [facility] ([id number]) [address], [address] [place] [address] MCV (RBC) [Entitic vol] 89 fL Normal 80-100 [facility] Comment on above: Performed By: #### C MARIA ISABEL, BMP, 3039-04, LIVR #### [facility] ([id number]) [address], [facility] [address] [place] [address] Monocytes (Bld) [#/Vol] 1.0 10*3/uL High 0-0.9 [facility] Comment on above: Performed By: #### Racheal NICOLAS BMP, 3039-3, LIVR #### [facility] ([id number]) [address], [address] [place] [address] Monocytes/100 WBC (Bld) 7.5 % Normal [facility] Comment on above: Performed By: #### C MARIA ISABEL, BMP, 3039-3, LIVR #### [facility] ([id number]) [address], [address] [place] [address] Neutrophils/100 WBC (Bld) 77.2 % Normal [facility] Comment on above: Performed By: #### C MARIA ISABEL, BMP, 3040-3, LIVR #### [facility] ([id number]) [address], [address] [place] [address] Platelet mean volume (Bld) [Entitic vol] 7.4 fL Normal 7-12 [facility] Comment on above: Performed By: #### C MARIA ISABEL, BMP, 3040-3, LIVR #### [facility] ([id number]) [address], [facility] [address] [place] [address] Platelets (Bld) [#/Vol] 446 10*3/uL Normal 150-450 [facility] Comment on above: Performed By: #### C MARIA ISABEL, BMP, 3040-3, LIVR #### [facility] ([id number]) [address], [facility] [address] [place] [address] RBC COUNT 4.87 X10E12/L Normal 4.10-5.70 [facility] Comment on above: Performed By: #### C MARIA ISABEL, BMP, 3040-3, LIVR #### [facility] ([id number]) [address], [address] [address] WBC (Bld) [#/Vol] 12.9 10*3/uL High 4.0-11.0 [facility] Comment on above: Performed By: #### C MARIA ISABEL, BMP, 3040-3, LIVR #### [facility] ([id number]) [address], [facility] [address] [place] [address] GI PANELon 04-18-2023 Gastrointestinal pathogens DNA and RNA panel EVA+non-probe (Stl) SPECIMEN SOURCE STOOL CAMPYLOBACTER Not detected (qualifier value) PLESIOMONAS Not detected (qualifier value) SALMONELLA Not detected (qualifier value) VIBRIO Not detected (qualifier value) VIBRIO CHOLERAE Not detected (qualifier value) Y. ENTEROCOLITICA Not detected (qualifier value) AGGREGATIVE E COLI Not detected (qualifier value) PATHOGENIC E COLI Not detected (qualifier value) TOXIGENIC E COLI Not detected (qualifier value) SHIGA TOXIN E COLI Not detected (qualifier value) SHIGELLA-E COLI Not detected (qualifier value) CRYPTOSPORIDIUM Not detected (qualifier value) CYCLOSPORA Not detected (qualifier value) E HISTOLYTICA Not detected (qualifier value) GIARDIA LAMBLIA Not detected (qualifier value) ADENOVIRUS Not detected (qualifier value) ASTROVIRUS Not detected (qualifier value) NOROVIRUS Not detected (qualifier value) ROTAVIRUS A Not detected (qualifier value) SAPOVIRUS Not detected (qualifier value) Normal NDET [facility] Comment on above: Performed By: #### C BCA, BMP, 3040-3, LIVR #### [facility] ([id number]) [address] [place] [address] [address] [place] [address] Glucose Glucometer (BldC) [M ass/Vol]on 04-18-2023 Glucose [Mass/Vol] 164 mg/dL High 65-99 [facility] Glucose [Mass/Vol] 146 mg/dL High 65-99 [facility] Glucose [Mass/Vol] 145 mg/dL High 65-99 [facility] Glucose [Mass/Vol] 161 mg/dL High 65-99 [facility] Surgical Pathologyon 024 Surgical Pathology Normal [facility] Comment on above: Result Comment: [facility] [address] [place] [address] Surgical Pathology Consultation Patient Name:SUSIE BOYCE:1950 (Age: 72)Gender:MTaken:4Reported:04/20/2023hysician(s):Andrzej Fine MD ( )Copy To: Rec. #:[id number]: #[id number] Final Pathologic Diagnosis 1. Duodenum biopsy: Duodenal mucosa with no specific abnormalities. Negative for villous blunting, atypia, or malignancy. Negative for evidence of celiac disease. 2. Gastric biopsy: Mild chronic gastritis. Negative for helicobacter organisms on routine H&E examination. Negative for dysplasia or malignancy. Report Electronically Signed Out st04/20/2023Lorin Campos MD Interpretation performed at [facility], [address] [place], [address], License number: [id number]. Clinical History Melena. 1. R/O celiac 2. H pylori screening. Gross Description 1. Received in formalin labeled [facility], #1: Duodenum biopsy R/O celiac are 6 lockett bits of soft tissue, ranging from 0.2-0.4 cm in greatest dimension. Filtered and submitted in a single cassette. (1, ns, [id number], m7) MG 2. Received in formalin labeled [facility], #2: Gastric biopsy are 4 lockett bits of soft tissue, ranging from 0.1-0.4 cm in greatest dimension. Filtered and submitted in a single cassette. (1, ns, [id number], m7) MG [facility]/04/18/2023GR Specimen(s) Received 1: Duodenum biopsy 2: Gastric biopsy Fee Codes(s): 1; 16765 2; 47962 BASIC METABOLIC PANLon 04-17 Anion gap [Moles/Vol] 9 mmol/L Normal 5-15 [facility] Comment on above: Performed By: #### C BCA, BMP, 3040-3, LIVR #### [facility] ([id number]) [address], [address] [place] [address] Calcium [Mass/Vol] 8.7 mg/dL Normal 8.5-10.5 [facility] Comment on above: Performed By: #### C BCA, BMP, 3040-3, LIVR #### [facility] ([id number]) [address], [address] [place] [address] Chloride [Moles/Vol] 104 mmol/L Normal 98-109 [facility] Comment on above: Performed By: #### C BCA, BMP, 3040-3, LIVR #### [facility] ([id number]) [address], [address] [place] [address] CO2 [Moles/Vol] 25 mmol/L Normal 22-32 [facility] Comment on above: Performed By: #### C MARIA ISABEL BMP, 3040-3, LIVR #### [facility] ([id number]) [address] [address] [place] [address] Creatinine [Mass/Vol] 0.77 mg/dL Normal 0.60-1.30 [facility] Comment on above: Result Comment: METH OD TRACEABLE TO IDMS STANDARD Performed By: #### C DARREN NICOLAS, 0-3, LIVR #### [facility] ([id number]) [address], [address] [place] [address] eGFR (CKD-EPI) NON-RACE DEPENDENT >90 Normal >59 [facility] Comment on above: Result Comment: Reported eGFR is based on the CKD-EPI 2020 equation that does not use a race coefficient. Performed By: #### C MARIA ISABEL BMP, 304-3, LIVR #### [facility] ([id number]) [address] [address] [place] [address] Glucose [Mass/Vol] 195 mg/dL High 65-99 [facility] Comment on above: Performed By: #### C MARIA ISABEL BMP, 0-3, LIVR #### [facility] ([id number]) [address], [address] [place] [address] Potassium [Moles/Vol] 3.8 mmol/L Normal 3.5-5.0 [facility] Comment on above: Performed By: #### C MARIA ISABEL BMP, 3040-3, LIVR #### [facility] ([id number]) [address] [address] [place] [address] Sodium [Moles/Vol] 138 mmol/L Normal 134-146 [facility] Comment on above: Performed By: #### C BCA, BMP, 3040-3, LIVR #### [facility] ([id number]) [address], [address] [place] [address] Urea nitrogen [Mass/Vol] 14 mg/dL Normal 5-27 [facility] Comment on above: Performed By: #### C BCA, BMP, 3040-3, LIVR #### [facility] ([id number]) [address], [facility] [address] [place] [address] CBC AND AUTO DIFFon 04-17-19 24 ABSOLUTE BASOPHIL 0.1 X10E9/L Normal 0.0-0.2 [facility] Comment on above: Performed By: #### C BCA, BMP, 3040-3, LIVR #### [facility] ([id number]) [address], [address] [place] [address] ABSOLUTE NEUTROPHIL 9.3 X10E9/L High 1.5-6.6 [facility] Comment on above: Performed By: #### C BCA, BMP, 3040-3, LIVR #### [facility] ([id number]) [address], [address] [place] [address] Basophils/100 WBC (Bld) 0.6 % Normal [facility] Comment on above: Performed By: #### C BCA, BMP, 3040-3, LIVR #### [facility] ([id number]) [address], [address] [place] [address] Eosinophils (Bld) [#/Vol] 0.1 10*3/uL Normal 0.0-0.4 [facility] Comment on above: Performed By: #### C BCA, BMP, 3040-3, LIVR #### [facility] ([id number]) [address], [address] [place] [address] Eosinophils/100 WBC (Bld) 1.1 % Normal [facility] Comment on above: Performed By: #### C BCA, BMP, 3040-3, LIVR #### [facility] ([id number]) [address], [address] [place] [address] Erythrocyte distribution width (RBC) [Ratio] 13.2 % Normal 11.5-15.0 [facility] Comment on above: Performed By: #### C MARIA ISABEL, BMP, 3039-3, LIVR #### [facility] ([id number]) [address], [address] [place] [address] Hematocrit (Bld) [Volume fraction] 42.9 % Normal 39-49 [facility] Comment on above: Performed By: #### C MARIA ISABEL, BMP, 3039-04, LIVR #### [facility] ([id number]) [address], [address] [place] [address] Hemoglobin (Bld) [Mass/Vol] 14.6 g/dL Normal 13.0-17.0 [facility] Comment on above: Performed By: #### C MARIA ISABEL, BMP, 3039-04, LIVR #### [facility] ([id number]) [address], [facility] [address] [place] [address] Lymphocytes (Bld) [#/Vol] 1.5 10*3/uL Normal 1.0-3.5 [facility] Comment on above: Performed By: #### C MARIA ISABEL BMP, 3039-04, LIVR #### [facility] ([id number]) [address], [address] [place] [address] Lymphocytes/100 WBC (Bld) 12.3 % Normal [facility] Comment on above: Performed By: #### C BCA, BMP, 3039-3, LIVR #### [facility] ([id number]) [address], [address] [place] [address] MCH (RBC) [Entitic mass] 29.7 pg Normal 27-34 [facility] Comment on above: Performed By: #### C BCA, BMP, 0-3, LIVR #### [facility] ([id number]) [address], [address] [place] [address] MCHC (RBC) [Mass/Vol] 34.0 g/dL Normal 32-36 [facility] Comment on above: Performed By: #### C BCA, BMP, 3039-3, LIVR #### [facility] ([id number]) [address], [address] [place] [address] MCV (RBC) [Entitic vol] 87 fL Normal 80-100 [facility] Comment on above: Performed By: #### C BCA, BMP, 3039-3, LIVR #### [facility] ([id number]) [address], [address] [place] [address] Monocytes (Bld) [#/Vol] 1.0 10*3/uL High 0-0.9 [facility] Comment on above: Performed By: #### C BCA, BMP, 3039-3, LIVR #### [facility] ([id number]) [address], [address] [place] [address] Monocytes/100 WBC (Bld) 8.6 % Normal [facility] Comment on above: Performed By: #### C BCA, BMP, 3039-3, LIVR #### [facility] ([id number]) [address], [address] [place] [address] Neutrophils/100 WBC (Bld) 77.4 % Normal [facility] Comment on above: Performed By: #### C BCA, BMP, 3040-3, LIVR #### [facility] ([id number]) [address], [address] [place] [address] Platelet mean volume (Bld) [Entitic vol] 7.3 fL Normal 7-12 [facility] Comment on above: Performed By: #### C BCA, BMP, 3040-3, LIVR #### [facility] ([id number]) [address], [address] [place] [address] Platelets (Bld) [#/Vol] 472 10*3/uL High 150-450 [facility] Comment on above: Performed By: #### C MARIA ISABEL, BMP, 3040-3, LIVR #### [facility] ([id number]) [address], [address] [place] [address] RBC COUNT 4.90 X10E12/L Normal 4.10-5.70 [facility] Comment on above: Performed By: #### C MARIA ISABEL, BMP, 0-3, LIVR #### [facility] ([id number]) [address], [address] [place] [address] WBC (Bld) [#/Vol] 12.0 10*3/uL High 4.0-11.0 [facility] Comment on above: Performed By: #### C MARIA ISABEL, BMP, 3039-3, LIVR #### [facility] ([id number]) [address], [address] [place] [address] Glucose Glucometer (BldC) [M ass/Vol]on 04-17-2023 Glucose [Mass/Vol] 159 mg/dL High 65-99 [facility] Glucose [Mass/Vol] 266 mg/dL High 65-99 [facility] Glucose [Mass/Vol] 406 mg/dL Critically high 65-99 [facility] Glucose [Mass/Vol] 205 mg/dL High 65-99 [facility] HGB A1C (GLYCO-HGB)on 2023 Glucose [Mass/Vol] 177 mg/dL Normal [facility] Comment on above: Performed By: #### C MARIA ISABEL, BMP, 3040-3, LIVR #### [facility] ([id number]) [address], [address] [place] [address] HbA1c (Bld) [Mass fraction] 7.8 % High 4.4-5.6 [facility] Comment on above: Result Comment: NOTE ADA Guidelines Result HgbA1c Normal : less than 5.7 % Prediabetes : 5.7 % to 6.4 % Diabetes : > 6.4 % Use with caution in patients with abnormal hemoglobin variants as the half-life of red blood cells and in vivo glycation rates are affected. Performed By: #### C MARIA ISABEL BMP, 3040-3, LIVR #### [facility] ([id number]) [address], [address] [place] [address] BASIC METABOLIC PANLon 04-16 Anion gap [Moles/Vol] 9 mmol/L Normal 5-15 [facility] Comment on above: Performed By: #### C MARIA ISABEL BMP, 3040-3, LIVR #### [facility] ([id number]) [address], [address] [place] [address] Calcium [Mass/Vol] 9.8 mg/dL Normal 8.5-10.5 [facility] Comment on above: Performed By: #### C MARIA ISABEL BMP, 3040-3, LIVR #### [facility] ([id number]) [address], [address] [place] [address] Chloride [Moles/Vol] 101 mmol/L Normal 98-109 [facility] Comment on above: Performed By: #### C BCA BMP, 3040-3, LIVR #### [facility] ([id number]) [address], [address] [place] [address] CO2 [Moles/Vol] 27 mmol/L Normal 22-32 [facility] Comment on above: Performed By: #### C BCA BMP, 3040-3, LIVR #### [facility] ([id number]) [address], [address] [place] [address] Creatinine [Mass/Vol] 0.84 mg/dL Normal 0.60-1.30 [facility] Comment on above: Result Comment: METH OD TRACEABLE TO IDMS STANDARD Performed By: #### C DARREN NICOLAS, 3040-3, LIVR #### [facility] ([id number]) [address], [address] [place] [address] eGFR (CKD-EPI) NON-RACE DEPENDENT >90 Normal >59 [facility] Comment on above: Result Comment: Reported eGFR is based on the CKD-EPI 2020 equation that does not use a race coefficient. Performed By: #### C DARREN NICOLAS, 3040-3, LIVR #### [facility] ([id number]) [address], [address] [place] [address] Glucose [Mass/Vol] 247 mg/dL High 65-99 [facility] Comment on above: Performed By: #### C DARREN NICOLAS, 0-3, LIVR #### [facility] ([id number]) [address], [address] [place] [address] Potassium [Moles/Vol] 4.5 mmol/L Normal 3.5-5.0 [facility] Comment on above: Result Comment: SPEC IMEN HEMOLYZED, RESULTS INCREASED MODERATELY HEMOLYZED Performed By: #### C DARREN NICOLAS, 3040-3, LIVR #### [facility] ([id number]) [address], [address] [place] [address] Sodium [Moles/Vol] 137 mmol/L Normal 134-146 [facility] Comment on above: Performed By: #### C DARREN NICOLAS, 3040-3, LIVR #### [facility] ([id number]) [address], [address] [place] [address] Urea nitrogen [Mass/Vol] 20 mg/dL Normal 5-27 [facility] Comment on above: Performed By: #### C DARREN NICOLAS, 3040-3, LIVR #### [facility] ([id number]) [address], [address] [place] [address] CBC AND AUTO DIFFon 04-16-19 24 ABSOLUTE BASOPHIL 0.1 X10E9/L Normal 0.0-0.2 [facility] Comment on above: Performed By: #### C MARIA ISABEL, BMP, 3040-3, LIVR #### [facility] ([id number]) [address], [address] [place] [address] ABSOLUTE NEUTROPHIL 12.6 X10E9/L High 1.5-6.6 [facility] Comment on above: Performed By: #### C MARIA ISABEL, BMP, 3039-3, LIVR #### [facility] ([id number]) [address], [address] [place] [address] Basophils/100 WBC (Bld) 0.4 % Normal [facility] Comment on above: Performed By: #### C BCA, BMP, 3039-3, LIVR #### [facility] ([id number]) [address], [address] [place] [address] Eosinophils (Bld) [#/Vol] 0.1 10*3/uL Normal 0.0-0.4 [facility] Comment on above: Performed By: #### C BCA, BMP, 0-3, LIVR #### [facility] ([id number]) [address], [address] [place] [address] Eosinophils/100 WBC (Bld) 0.5 % Normal [facility] Comment on above: Performed By: #### C BCA, BMP, 0-3, LIVR #### [facility] ([id number]) [address], [address] [place] [address] Erythrocyte distribution width (RBC) [Ratio] 13.4 % Normal 11.5-15.0 [facility] Comment on above: Performed By: #### C BCA, BMP, 3040-3, LIVR #### [facility] ([id number]) [address], [facility] [address] [place] [address] Hematocrit (Bld) [Volume fraction] 45.3 % Normal 39-49 [facility] Comment on above: Performed By: #### C BCA, BMP, 3039-3, LIVR #### [facility] ([id number]) [address], [facility] [address] [place] [address] Hemoglobin (Bld) [Mass/Vol] 15.2 g/dL Normal 13.0-17.0 [facility] Comment on above: Performed By: #### C MARIA ISABEL, BMP, 3039-3, LIVR #### [facility] ([id number]) [address] [address] Lymphocytes (Bld) [#/Vol] 1.1 10*3/uL Normal 1.0-3.5 [facility] Comment on above: Performed By: #### C BCA, BMP, 3039-3, LIVR #### [facility] ([id number]) [address], [address] [address] Lymphocytes/100 WBC (Bld) 7.5 % Normal [facility] Comment on above: Performed By: #### C BCA, BMP, 3039-3, LIVR #### [facility] ([id number]) [address], [facility] [address] [place] [address] MCH (RBC) [Entitic mass] 29.4 pg Normal 27-34 [facility] Comment on above: Performed By: #### C BCA, BMP, 0-3, LIVR #### [facility] ([id number]) [address], [facility] [address] [place] [address] MCHC (RBC) [Mass/Vol] 33.5 g/dL Normal 32-36 [facility] Comment on above: Performed By: #### C BCA, BMP, 0-3, LIVR #### [facility] ([id number]) [address], [address] [place] [address] MCV (RBC) [Entitic vol] 88 fL Normal 80-100 [facility] Comment on above: Performed By: #### C BCA, BMP, 3040-3, LIVR #### [facility] ([id number]) [address], [address] [place] [address] Monocytes (Bld) [#/Vol] 1.0 10*3/uL High 0-0.9 [facility] Comment on above: Performed By: #### C BCA, BMP, 0-3, LIVR #### [facility] ([id number]) [address], [address] [place] [address] Monocytes/100 WBC (Bld) 6.9 % Normal [facility] Comment on above: Performed By: #### C BCA, BMP, 0-3, LIVR #### [facility] ([id number]) [address], [address] [place] [address] Neutrophils/100 WBC (Bld) 84.7 % Normal [facility] Comment on above: Performed By: #### C BCA, BMP, 0-3, LIVR #### [facility] ([id number]) [address], [address] [place] [address] Platelet mean volume (Bld) [Entitic vol] 7.2 fL Normal 7-12 [facility] Comment on above: Performed By: #### C BCA, BMP, 3040-3, LIVR #### [facility] ([id number]) [address], [address] [place] [address] Platelets (Bld) [#/Vol] 501 10*3/uL High 150-450 [facility] Comment on above: Performed By: #### C BCA, BMP, 3040-3, LIVR #### [facility] ([id number]) [address], [address] [place] [address] RBC COUNT 5.18 X10E12/L Normal 4.10-5.70 [facility] Comment on above: Performed By: #### C BCA, BMP, 3040-3, LIVR #### [facility] ([id number]) [address], [address] [place] [address] WBC (Bld) [#/Vol] 14.8 10*3/uL High 4.0-11.0 [facility] Comment on above: Performed By: #### C BCA, BMP, 3040-3, LIVR #### [facility] ([id number]) [address], [address] [place] [address] CT ABDOMEN AND PELVIS W CONT on 04-16-2023 CT ABDOMEN AND PELVIS W CONT CT ABDOMEN AND PELVIS W CONT CT ABDOMEN AND PELVIS W CONT CLINICAL HISTORY: Upper GI bleed, guaiac-positive, diarrhea COMPARISON: None TECHNIQUE: * CT abdomen and pelvis was performed with the administration of intravenous contrast. Coronal and sagittal reformatted images were generated and reviewed. Automated exposure control was utilized. * All CT scans at this facility use dose modulation, iterative reconstruction, and/or weight based dosing when appropriate to reduce radiation dose to as low as reasonably achievable. FINDINGS: Mild bibasilar atelectasis. No pleural or pericardial effusions. Dense multivessel coronary artery calcification. No intra-abdominal free air or free fluid. Noncirrhotic liver morphology with no focal hepatic lesion identified. Mild fatty infiltration adjacent to the falciform ligament. Gallbladder appears nondistended. The spleen, pancreas, and adrenal glands appear unremarkable. No suspicious renal lesions identified. Symmetric enhancement of bilateral renal parenchyma. There is a nonobstructing 1.2 cm renal calculus inferior pole of left kidney. No evidence of obstructive uropathy. No pelvic free fluid. The prostate appears enlarged measuring up to 5.4 cm in transverse dimension.. Pancolonic diverticulosis with no evidence of active diverticulitis. The small bowel and appendix appear unremarkable. No abdominal or pelvic lymphadenopathy. Aneurysmal dilatation of the infrarenal abdominal aorta measuring up to 3.2 cm. Additional heavy aortobiiliac atherosclerosis. Multilevel degenerative changes of the visualized thoracolumbar spine. Large fat-containing left inguinal hernia. IMPRESSION: * No evidence of focal upper/lower GI bleed. * Pancolonic diverticulosis with no evidence of active diverticulitis. * Aneurysmal dilatation of the infrarenal abdominal aorta measuring up to 3.2 cm. * Nonobstructive left nephrolithiasis. * Large fat-containing left inguinal hernia. Approved by Resident: Miguel Horton MD on 04/16/2023 4:30 PM I, Mark Callaway MD have personally reviewed the image(s) and agree with and/or edited the report Finalized by Mark Callaway MD on 04/16/2023 4:47 PM Normal [facility] CT BRAIN WO CONTon CT BRAIN WO CONT CT BRAIN WO CONT EXAM:CT BRAIN WO CONT INDICATION: Head trauma, minor (Age >= 65y); Memory loss; multiple unwitnessed falls COMPARISON: None TECHNIQUE: Standard noncontrast axial CT sections through the head. All CT scans at this facility use dose modulation, iterative reconstruction, and/or weight based dosing when appropriate to reduce radiation dose to as low as reasonably achievable. FINDINGS: Brain Parenchyma: No acute hemorrhage, cerebral edema, or acute cortical infarction. No mass effect, or midline shift. Patchy hypoattenuation in bilateral periventricular and subcortical white matter, nonspecific, most commonly reflecting chronic small vessel ischemic changes. Ventricles and Sulci: Normal for age. Extra-Axial Spaces: No extra-axial fluid collection. Orbits, paranasal sinuses, midface structures, mastoid air cells: No significant abnormalities. Cranium and extracranial soft tissues: Normal IMPRESSION: No acute or subacute intracranial abnormalities. Chronic changes as above. Finalized by Susie Sam on 04/16/2023 4:15 PM Normal [facility] Glucose Glucometer (BldC) [M ass/Vol]on 04-16-2023 Glucose [Mass/Vol] 121 mg/dL High 65-99 [facility] LIPASEon 04-16-2023 Lipase [Catalytic activity/Vol] 60 U/L Normal 11-82 [facility] Comment on above: Performed By: #### C BCA, BMP, 3040-3, LIVR #### [facility] ([id number]) [address], [address] [place] [address] LIVER PANELon 04-16-2023 Albumin [Mass/Vol] 4.2 g/dL Normal 3.2-5.3 [facility] Comment on above: Performed By: #### C BCA, BMP, 3040-3, LIVR #### [facility] ([id number]) [address], [address] [place] [address] ALP [Catalytic activity/Vol] 93 U/L Normal 39-130 [facility] Comment on above: Performed By: #### C BCA, BMP, 3039-3, LIVR #### [facility] ([id number]) [address], [address] [place] [address] ALT [Catalytic activity/Vol] 19 U/L Normal 0-40 [facility] Comment on above: Performed By: #### C BCA, BMP, 3039-3, LIVR #### [facility] ([id number]) [address], [address] [place] [address] AST [Catalytic activity/Vol] 17 U/L Normal 0-41 [facility] Comment on above: Performed By: #### C BCA, BMP, 3039-3, LIVR #### [facility] ([id number]) [address], [address] [place] [address] Bilirubin [Mass/Vol] 0.8 mg/dL Normal 0.3-1.2 [facility] Comment on above: Performed By: #### C BCA, BMP, 0-3, LIVR #### [facility] ([id number]) [address], [address] [place] [address] Bilirubin.direct [Mass/Vol] 0.1 mg/dL Normal 0.0-0.4 [facility] Comment on above: Result Comment: SPEC IMEN HEMOLYZED, RESULTS DECREASED MODERATELY HEMOLYZED Performed By: #### C BCA, BMP, 3040-3, LIVR #### [facility] ([id number]) [address] [place] [address] Protein [Mass/Vol] 7.4 g/dL Normal 6.0-8.0 [facility] Comment on above: Performed By: #### C BCA, BMP, 3040-3, LIVR #### [facility] ([id number]) [address], [address] [place] [address] URN MACROSCOPIC NURon 2023 BILIRUBIN CEDRIC Negative Normal NEG [facility] Comment on above: Performed By: #### N UM #### [facility] ([id number]) [address] [place] [address] BLOOD/HGB CEDRIC Small Abnormal NEG [facility] Comment on above: Performed By: #### N UM #### [facility] ([id number]) [address] [place] [address] GLUCOSE CEDRIC 500 mg/dL Abnormal NEG [facility] Comment on above: Performed By: #### N UM #### [facility] ([id number]) [address] [place] [address] KETONES CEDRIC Negative Normal NEG [facility] Comment on above: Performed By: #### N UM #### [facility] ([id number]) [address] [place] [address] LEUKOCYTE ESTERASE CEDRIC Trace Abnormal NEG [facility] Comment on above: Performed By: #### N UM #### [facility] ([id number]) [address] [place] [address] NITRITE CEDRIC Negative Normal NEG [facility] Comment on above: Performed By: #### N UM #### [facility] ([id number]) [address] [place] [address] PH CEDRIC 5.5 Normal 5.0-8.5 [facility] Comment on above: Performed By: #### N UM #### [facility] ([id number]) [address] [place] [address] PROTEIN CEDRIC Negative Normal NEG [facility] Comment on above: Performed By: #### N UM #### [facility] ([id number]) [address] [place] [address] SPECIFIC GRAVITY CEDRIC 1.015 Normal 1.003-1.035 [facility] Comment on above: Performed By: #### N UM #### [facility] ([id number]) [address] [place] [address] UROBILINOGEN CEDRIC 0.2 eu/dL Normal <1.1 [facility] Comment on above: Performed By: #### N UM #### [facility] ([id number]) [address] [place] [address] Urine collection deviceon ER EXTRA URINES ER EXTRA URINE ORDER IN PROCESS Normal [facility] XR CHEST 2 VWSon 04-16-2023 XR CHEST 2 VWS XR CHEST 2 VWS Chest radiograph dated: 04/16/2023. Reason for study: Right-sided rib pain, recent mechanical fall, exclude rib fracture. Comparison studies: Chest radiograph from 05/03/2016 and 04/21/2005. Technique: Upright chest 1 view AP. Findings: Unremarkable cardiomediastinal silhouette. There is no pulmonary edema. No pneumothorax or significant pleural effusions. Bibasilar bandlike opacities likely on the basis of subsegmental atelectatic change. No overt displaced rib fractures noted. IMPRESSION: 1. No overt displaced rib fractures noted. If there is high clinical concern for rib fracture dedicated rib radiographs may be obtained. 2. No acute cardiopulmonary process identified. Finalized by Surendra Sawyer MD on 04/16/2023 7:09 PM Normal [facility] Basic Metabolic Profon 01-18 Anion gap [Moles/Vol] 17 mmol/L Normal 9-17 [facility] Comment on above: Performed By: #### B MP #### [address] [address] [employer]ical Field Service Engineer: Norberto Condon MD Calcium [Mass/Vol] 9.7 mg/dL Normal 8.6-10.4 [facility] Comment on above: Performed By: #### B MP #### [facility] [employer] [address] [place] [address] [employer]ical Field Service Engineer: Norberto Condon MD Chloride [Moles/Vol] 100 mmol/L Normal 98-107 [facility] Comment on above: Performed By: #### B MP #### [facility] [employer] [address] [place] [address] [employer]ical Field Service Engineer: Norberto Condon MD CO2 [Moles/Vol] 19 mmol/L Low 20-31 [facility] Comment on above: Performed By: #### B MP #### [facility] [employer] [address] [place] [address] [employer]ical Field Service Engineer: Norberto Condon MD Creatinine [Mass/Vol] 1.0 mg/dL Normal 0.7-1.2 [facility] Comment on above: Performed By: #### B MP #### [address] [address] Biomedical Field Service Engineer: Norberto Condon MD GFR/1.73 sq M.predicted among non-blacks MDRD (S/P/Bld) [Vol rate/Area] mL/min/{1.73_m2} Normal >60 [facility] Comment on above: Result Comment: These results are not intended for use in patients <18 years of age. eGFR results are calculated without a race factor using the 2020 CKD-EPI equation. Careful clinical correlation is recommended, particularly when comparing to results calculated using previous equations. The CKD-EPI equation is less accurate in patients with extremes of muscle mass, extra-renal metabolism of creatine, excessive creatine ingestion, or following therapy that affects renal tubular secretion. Performed By: #### B MP #### [address] [address] Biomedical Field Service Engineer: Norberto Condon MD Glucose [Mass/Vol] 188 mg/dL High 70-99 [facility] Comment on above: Performed By: #### B MP #### [address] [address] Biomedical Field Service Engineer: Norberto Condon MD Potassium [Moles/Vol] 4.6 mmol/L Normal 3.7-5.3 [facility] Comment on above: Performed By: #### B MP #### [facility] [employer] [address] [place] [address] Biomedical Field Service Engineer: Norberto Condon MD Sodium [Moles/Vol] 136 mmol/L Normal 135-144 [facility] Comment on above: Performed By: #### B MP #### [address] [address] Biomedical Field Service Engineer: Norberto Condon MD Urea nitrogen [Mass/Vol] 20 mg/dL Normal 8-23 [facility] Comment on above: Performed By: #### B MP #### [address] [address] Biomedical Field Service Engineer: Norberto Condon MD Clinical Supporton 3 Clinical Support [id number] Susie Boyce 1950 Date Provider Department Center 10/26/2022 PAT VASQUES MP OT Medical Pavi No family history on file Normal [facility] Comp Metabol,Fastingon 10-04 Albumin [Mass/Vol] 4.5 g/dL Normal 3.5-5.2 [facility] Comment on above: Performed By: #### L IPR, CMPF #### [address] [address] Biomedical Field Service Engineer: Norberto Condon MD Albumin/Glob Ratio 1.7 Normal 1.0-2.5 [facility] Comment on above: Performed By: #### L IPR, CMPF #### [address] [address] Biomedical Field Service Engineer: Norberto Condon MD Alkaline Phos 69 U/L Normal 40-129 [facility] Comment on above: Performed By: #### L IPR, CMPF #### [facility] [employer] [address] [place] [address] Biomedical Field Service Engineer: Norberto Condon MD ALT [Catalytic activity/Vol] 15 U/L Normal 5-41 [facility] Comment on above: Performed By: #### L IPR, CMPF #### [facility] [employer] [address] [place] [phone] Biomedical Field Service Engineer: Norberto Condon MD AST [Catalytic activity/Vol] 13 U/L Normal <40 [facility] Comment on above: Performed By: #### L IPR, CMPF #### [address] [address] Biomedical Field Service Engineer: Norberto Condon MD Bilirubin [Mass/Vol] 0.4 mg/dL Normal 0.3-1.2 [facility] Comment on above: Performed By: #### L IPR, CMPF #### [facility] [employer] [address] [place] [address] Biomedical Field Service Engineer: Norberto Condon MD Protein [Mass/Vol] 7.2 g/dL Normal 6.4-8.3 [facility] Comment on above: Performed By: #### L IPR, CMPF #### [facility] [employer] [address] [place] [address] Biomedical Field Service Engineer: Norberto Condon MD Anion gap [Moles/Vol] 19 mmol/L High 9-17 [facility] Comment on above: Performed By: #### L IPR, CMPF #### [facility] [employer] [facility] [place] [address] Biomedical Field Service Engineer: Norberto Condon MD Calcium [Mass/Vol] 9.8 mg/dL Normal 8.6-10.4 [facility] Comment on above: Performed By: #### L IPR, CMPF #### [facility] [employer] [address] [place] [address] Biomedical Field Service Engineer: Norberto Condon MD Chloride [Moles/Vol] 101 mmol/L Normal 98-107 [facility] Comment on above: Performed By: #### L IPR, CMPF #### [facility] [employer] [address] [place] [address] Biomedical Field Service Engineer: Norberto Condon MD CO2 [Moles/Vol] 19 mmol/L Low 20-31 [facility] Comment on above: Performed By: #### L IPR, CMPF #### [address] [address] Biomedical Field Service Engineer: Norberto Condon MD Creatinine [Mass/Vol] 1.0 mg/dL Normal 0.7-1.2 [facility] Comment on above: Performed By: #### L IPR, CMPF #### [address] [address] Biomedical Field Service Engineer: Norberto Condon MD GFR/1.73 sq M.predicted among non-blacks MDRD (S/P/Bld) [Vol rate/Area] mL/min/{1.73_m2} Normal >60 [facility] Comment on above: Result Comment: These results are not intended for use in patients <18 years of age. eGFR results are calculated without a race factor using the 2020 CKD-EPI equation. Careful clinical correlation is recommended, particularly when comparing to results calculated using previous equations. The CKD-EPI equation is less accurate in patients with extremes of muscle mass, extra-renal metabolism of creatine, excessive creatine ingestion, or following therapy that affects renal tubular secretion. Performed By: #### L IPR, CMPF #### [employer] [address] [place] [address] Biomedical Field Service Engineer: Norberto Condon MD Glucose [Mass/Vol] 138 mg/dL High 70-99 [facility] Comment on above: Performed By: #### L IPR, CMPF #### [employer] [address] [place] [address] Biomedical Field Service Engineer: Norberto Condon MD Potassium [Moles/Vol] 4.9 mmol/L Normal 3.7-5.3 [facility] Comment on above: Performed By: #### L IPR, CMPF #### [employer] [address] [place] [address] Biomedical Field Service Engineer: Norberto Condon MD Sodium [Moles/Vol] 139 mmol/L Normal 135-144 [facility] Comment on above: Performed By: #### L IPR, CMPF #### [employer] [address] [place] [address] Biomedical Field Service Engineer: Norberto Condon MD Urea nitrogen [Mass/Vol] 26 mg/dL High 8-23 [facility] Comment on above: Performed By: #### L IPR, CMPF #### [employer] [address] [place] [address] Biomedical Field Service Engineer: Norberto Condon MD Lipid Profileon 10-04-2022 Cholesterol [Mass/Vol] 125 mg/dL Normal <200 [facility] Comment on above: Result Comment: Cholesterol Guidelines: <200 Desirable 200-240 Borderline >240 Undesirable Performed By: #### L IPR, CMPF #### [employer] [address] [place] [address] Biomedical Field Service Engineer: Norberto Condon MD Cholesterol in HDL [Mass/Vol] 43 mg/dL Normal >40 [facility] Comment on above: Result Comment: HDL Guidelines: <40 Undesirable 40-59 Borderline >59 Desirable Performed By: #### L IPR, CMPF #### [employer] [address] [place] [address] Biomedical Field Service Engineer: Norberto Condon MD Cholesterol in LDL [Mass/Vol] 66 mg/dL Normal 0-130 [facility] Comment on above: Result Comment: LDL Guidelines: <100 Desirable 100-129 Near to/above Desirable 130-159 Borderline >159 Undesirable Direct (measured) LDL and calculated LDL are not interchangeable tests. Performed By: #### L IPR, CMPF #### [facility] [address] [place] [address] Biomedical Field Service Engineer: Norberto Condon MD Cholesterol.total/Ch olesterol in HDL [Mass ratio] 2.9 {ratio} Normal <5 [facility] Comment on above: Performed By: #### L IPR, CMPF #### [facility] [address] [place] [address] Biomedical Field Service Engineer: Norberto Condon MD Triglyceride [Mass/Vol] 80 mg/dL Normal <150 [facility] Comment on above: Result Comment: Triglyceride Guidelines: <150 Desirable 150-199 Borderline 200-499 High >499 Very high Based on AHA Guidelines for fasting triglyceride, November 2011. Performed By: #### L IPR, [facility] #### [facility] [address] [place] [address] Biomedical Field Service Engineer: Norberto Condon MD MRI BRAIN W WO CONTRASTon MRI BRAIN W WO CONTRAST EXAMINATION: MRI OF THE BRAIN WITHOUT AND WITH CONTRAST 09/07/2022 12:09 pm TECHNIQUE: Multiplanar multisequence MRI of the head/brain was performed without and with the administration of intravenous contrast. COMPARISON: None. HISTORY: ORDERING SYSTEM PROVIDED HISTORY: Cognitive impairment TECHNOLOGIST PROVIDED HISTORY: STAT Creatinine as needed:->Yes memory loss Reason for Exam: vale evangelista Initial evaluation. FINDINGS: INTRACRANIAL STRUCTURES/VENTRICLES : There is no acute infarct. No mass effect or midline shift. No evidence of an acute intracranial hemorrhage. Areas of T2 FLAIR hyperintensity are seen in the periventricular and subcortical white matter, which are nonspecific, but may represent chronic microvascular ischemic change. There is mild global parenchymal volume loss. Otherwise, the ventricles and sulci are normal in size and configuration. The sellar/suprasellar regions appear unremarkable. The normal signal voids within the major intracranial vessels appear maintained. No abnormal focus of enhancement is seen within the brain. ORBITS: The visualized portion of the orbits demonstrate no acute abnormality. SINUSES: The visualized paranasal sinuses and mastoid air cells demonstrate no acute abnormality. BONES/SOFT TISSUES: The bone marrow signal intensity appears normal. The soft tissues demonstrate no acute abnormality. IMPRESSION: 1. No acute intracranial abnormality. No acute infarct. 2. Mild global parenchymal volume loss with mild chronic microvascular ischemic changes. Interpreted by: Bertin David MD Signed by: Bertin David MD 09/13/22 Final result Normal [facility] Creatinine w/GFRon 3 Creatinine [Mass/Vol] 0.8 mg/dL Normal 0.7-1.2 [facility] Comment on above: Performed By: #### C REG #### [facility] [address] [place] [address] Biomedical Field Service Engineer: Derrek Godinez MD GFR/1.73 sq M.predicted among non-blacks MDRD (S/P/Bld) [Vol rate/Area] mL/min/{1.73_m2} Normal >60 [facility] Comment on above: Result Comment: These results are not intended for use in patients <18 years of age. eGFR results are calculated without a race factor using the 2020 CKD-EPI equation. Careful clinical correlation is recommended, particularly when comparing to results calculated using previous equations. The CKD-EPI equation is less accurate in patients with extremes of muscle mass, extra-renal metabolism of creatine, excessive creatine ingestion, or following therapy that affects renal tubular secretion. Performed By: #### C REG #### [facility] [address] [place] [address] Biomedical Field Service Engineer: Derrek Godinez MD B12/Folate Panelon 3 Cobalamin (Vitamin B12) [Mass/Vol] 392 pg/mL Normal 232-1245 [facility] Comment on above: Performed By: #### B 12FOL #### [facility] [address] [place], [place] [id number] Biomedical Field Service Engineer: Norberto Condon MD Folic Acid 13.6 ng/mL Normal >4.8 [facility] Comment on above: Performed By: #### B 12FOL #### [facility] [address] [place], [place] [address] Biomedical Field Service Engineer: Norberto Condon MD Vitamin B12 & Folateon 08-11 Cobalamin (Vitamin B12) [Mass/Vol] 392 pg/mL 232 - 1245 pg/mL [facility] [employer] Folate [Mass/Vol] 13.6 ng/mL 4.8 - PINF ng/mL [facility] [employer] [facility] MRI CERVICAL SPINE WO CONTRA STon 01-03-2022 MRI CERVICAL SPINE WO CONTRAST EXAMINATION: MRI OF THE CERVICAL SPINE WITHOUT CONTRAST 01/01/2022 12:46 pm TECHNIQUE: Multiplanar multisequence MRI of the cervical spine was performed without the administration of intravenous contrast. COMPARISON: Cervical radiographs 10/30/2021 HISTORY: ORDERING SYSTEM PROVIDED HISTORY: Tremors of nervous system FINDINGS: BONES/ALIGNMENT: There is minimal, 2 mm degenerative anterolisthesis of C4 on 5. The vertebral body heights are maintained. The bone marrow signal appears unremarkable. SPINAL CORD: No abnormal cord signal is seen. SOFT TISSUES: No paraspinal mass identified. C2-C3: No significant disc protrusion or spinal canal stenosis. Moderate right foraminal stenosis related to uncovertebral and facet hypertrophy. C3-C4: Disc osteophyte complex contributing to mild canal stenosis. Moderate bilateral foraminal stenosis related to uncovertebral and facet hypertrophy. C4-C5: Disc osteophyte complex contributing to mild canal stenosis. Mild bilateral foraminal stenosis related to uncovertebral and facet hypertrophy. C5-C6: Disc osteophyte complex contributing to mild canal stenosis. Mild left and moderate right foraminal stenosis related to uncovertebral and facet hypertrophy. C6-C7: Disc osteophyte complex along with dorsal ligamentous hypertrophy resulting in moderate canal stenosis. Severe left and moderate right foraminal stenosis related to uncovertebral and facet hypertrophy. C7-T1: There is no significant disc protrusion, spinal canal stenosis or neural foraminal narrowing. IMPRESSION: Multilevel cervical spondylosis resulting in upwards of moderate canal stenosis at C6-7. Varying levels of foraminal stenosis, severe on the left at C6-7. Interpreted by: Fazal Rodas DO Signed by: Fazal Rodas DO 01/03/22 Final result Normal [facility] Multilevel cervical spondylosis resulting in upwards of moderate canal stenosis at C6-7. Varying levels of foraminal stenosis, severe on the left at C6-7. [facility] EXAMINATION: MRI OF THE CERVICAL SPINE WITHOUT CONTRAST 01/01/2022 12:46 pm TECHNIQUE: Multiplanar multisequence MRI of the cervical spine was performed without the administration of intravenous contrast. COMPARISON: Cervical radiographs 10/30/2021 HISTORY: ORDERING SYSTEM PROVIDED HISTORY: Tremors of nervous system FINDINGS: BONES/ALIGNMENT: There is minimal, 2 mm degenerative anterolisthesis of C4 on 5. The vertebral body heights are maintained. The bone marrow signal appears unremarkable. SPINAL CORD: No abnormal cord signal is seen. SOFT TISSUES: No paraspinal mass identified. C2-C3: No significant disc protrusion or spinal canal stenosis. Moderate right foraminal stenosis related to uncovertebral and facet hypertrophy. C3-C4: Disc osteophyte complex contributing to mild canal stenosis. Moderate bilateral foraminal stenosis related to uncovertebral and facet hypertrophy. C4-C5: Disc osteophyte complex contributing to mild canal stenosis. Mild bilateral foraminal stenosis related to uncovertebral and facet hypertrophy. C5-C6: Disc osteophyte complex contributing to mild canal stenosis. Mild left and moderate right foraminal stenosis related to uncovertebral and facet hypertrophy. C6-C7: Disc osteophyte complex along with dorsal ligamentous hypertrophy resulting in moderate canal stenosis. Severe left and moderate right foraminal stenosis related to uncovertebral and facet hypertrophy. C7-T1: There is no significant disc protrusion, spinal canal stenosis or neural foraminal narrowing. [facility] Fazal Rodas DO - 01/03/2022 EXAMINATION: MRI OF THE CERVICAL SPINE WITHOUT CONTRAST 01/01/2022 12:46 pm TECHNIQUE: Multiplanar multisequence MRI of the cervical spine was performed without the administration of intravenous contrast. COMPARISON: Cervical radiographs 10/30/2021 HISTORY: ORDERING SYSTEM PROVIDED HISTORY: Tremors of nervous system FINDINGS: BONES/ALIGNMENT: There is minimal, 2 mm degenerative anterolisthesis of C4 on 5. The vertebral body heights are maintained. The bone marrow signal appears unremarkable. SPINAL CORD: No abnormal cord signal is seen. SOFT TISSUES: No paraspinal mass identified. C2-C3: No significant disc protrusion or spinal canal stenosis. Moderate right foraminal stenosis related to uncovertebral and facet hypertrophy. C3-C4: Disc osteophyte complex contributing to mild canal stenosis. Moderate bilateral foraminal stenosis related to uncovertebral and facet hypertrophy. C4-C5: Disc osteophyte complex contributing to mild canal stenosis. Mild bilateral foraminal stenosis related to uncovertebral and facet hypertrophy. C5-C6: Disc osteophyte complex contributing to mild canal stenosis. Mild left and moderate right foraminal stenosis related to uncovertebral and facet hypertrophy. C6-C7: Disc osteophyte complex along with dorsal ligamentous hypertrophy resulting in moderate canal stenosis. Severe left and moderate right foraminal stenosis related to uncovertebral and facet hypertrophy. C7-T1: There is no significant disc protrusion, spinal canal stenosis or neural foraminal narrowing. IMPRESSION: Multilevel cervical spondylosis resulting in upwards of moderate canal stenosis at C6-7. Varying levels of foraminal stenosis, severe on the left at C6-7. Tailored Phone: MRI CERVICAL SPINE WO OG STOrdered By: Fazal Rodas on 01-03-2022 Tailored Phone: MRI CERVICAL SPINE WO OG Ryan 01-01-2022 Radiology Study observation (narrative) Tailored Phone: XR CERVICAL SPINE (2-3 VIEWS )on 10-30-2021 No acute osseous abnormality. Multilevel degenerative change. [facility] EXAMINATION: XRAY VIEWS OF THE CERVICAL SPINE 10/30/2021 8:51 am COMPARISON: None. 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 No acute osseous abnormality. Moderate degenerative change throughout most significant C4-5 C5-6 with loss of disc height endplate spondylosis. Prevertebral soft tissues unremarkable. [facility] Doroteo Joseph DO - 10/30/2021 EXAMINATION: XRAY VIEWS OF THE CERVICAL SPINE 10/30/2021 8:51 am COMPARISON: None. 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 No acute osseous abnormality. Moderate degenerative change throughout most significant C4-5 C5-6 with loss of disc height endplate spondylosis. Prevertebral soft tissues unremarkable. IMPRESSION: No acute osseous abnormality. Multilevel degenerative change. [facility] Work Phone: Radiology Study observation (narrative) [employer] Work Phone: XR CERVICAL SPINE (2-3 VIEWS )Ordered By: Doroteo Mcmillan on 10-30-2021 [employer] Work Phone: Comprehensive Metabolic Pane l, Fastingon 10-29-2021 Albumin [Mass/Vol] 4.4 g/dL 3.5 - 5.2 g/dL [facility] Albumin/Globulin [Mass ratio] 1.6 {ratio} 1 - 2.5 [facility] ALP (Bld) [Catalytic activity/Vol] 67 U/L 40 - 129 U/L [facility] ALT [Catalytic activity/Vol] 20 U/L 5 - 41 U/L [facility] Anion gap [Moles/Vol] 15 mmol/L 9 - 17 mmol/L [facility] AST [Catalytic activity/Vol] 14 U/L NINF - 40 U/L [facility] Bilirubin [Mass/Vol] 0.6 mg/dL 0.3 - 1 .2 mg/dL [facility] Calcium [Mass/Vol] 9.4 mg/dL 8.6 - 10. 4 mg/dL [facility] Chloride [Moles/Vol] 103 mmol/L 98 - 10 7 mmol/L [facility] CO2 [Moles/Vol] 23 mmol/L 20 - 31 mmol/L [facility] Creatinine [Mass/Vol] 0.79 mg/dL 0.7 - 1.2 mg/dL [facility] Free PSA/Total PSA [Mass fraction] 7.2 g/dL 6.4 - 8.3 g/dL [facility] GFR >60 60 - PI NF mL/min [facility] GFR Non- >60 60 - PINF mL/min [facility] GFR/1.73 sq M.predicted MDRD (S/P/Bld) [Vol rate/Area] [facility] Comment on above: Average GFR for 70 o r more years old: 75 mL/min/1.73sq m Chronic Kidney Disease: <60 mL/min/1.73sq m Kidney failure: <15 mL/min/1.73sq m eGFR calculated using average adult body mass. Additional eGFR calculator available at: http://www.[employer]DayMake[employer]/multiple_crcl_2011.htm Glucose [Mass/Vol] 139 mg/dL High 70 - 99 mg/dL [facility] Interpretation and review of laboratory results Abnormal [facility] Potassium [Moles/Vol] 4.6 mmol/L 3.7 - 5.3 mmol/L [facility] Sodium [Moles/Vol] 141 mmol/L 135 - 144 mmol/L [facility] Urea nitrogen (BldV) [Mass/Vol] 20 mg/dL 8 - 23 mg/dL [facility] Lipid Panelon 10-29-2021 Cholesterol [Mass/Vol] 160 mg/dL NINF - 200 mg/dL [facility] Comment on above: Cholesterol Guidelines: <200 Desirable 200-240 Borderline >240 Undesirable Cholesterol in HDL [Mass/Vol] 41 mg/dL 40 - PINF mg/dL [facility] Comment on above: HDL Guidelines: <40 Undesirable 40-59 Borderline >59 Desirable Cholesterol in LDL [Mass/Vol] 95 mg/dL 0 - 130 mg/dL [facility] Comment on above: LDL Guidelines: <100 Desirable 100-129 Near to/above Desirable 130-159 Borderline >159 Undesirable Direct (measured) LDL and calculated LDL are not interchangeable tests. Cholesterol.total/Ch olesterol in HDL [Mass ratio] 3.9 {ratio} NINF - 5 [facility] Triglyceride [Mass/Vol] 118 mg/dL NINF - 150 mg/dL [facility] Comment on above: Triglyceride Guidelines: <150 Desirable 150-199 Borderline 200-499 High >499 Very high Based on AHA Guidelines for fasting triglyceride, November 2011. No Panel Informationon 10-29 [facility] TSH With Reflex Ft4on 2021 TSH Qn 1.88 m[IU]/L [facility] Vitamin B12on 10-29-2021 Cobalamin (Vitamin B12) [Mass/Vol] 192 pg/mL Low 232 - 1245 pg/mL [facility] Interpretation and review of laboratory results Abnormal [facility] Vital Signs Date Time Vital Sign Value Performing Clinician Faci lity 06-17-2023 10:00-0400 Body temperature 96.8 [degF] Dena Silva MD Work Phone: [facility] 06-17-2023 10:00-0400 Diastolic blood pressure 69 mm[Hg] Dena Silva MD Work Phone: [facility] 06-17-2023 10:00-0400 Heart rate 75 /min Dena Silva MD Work Phone: [facility] 06-17-2023 10:00-0400 Respiratory rate 17 /min Dena Silva MD Work Phone: [facility] 06-17-2023 10:00-0400 SaO2% (BldA) [Mass fraction] 98 % Dena Silva MD Work Phone: [facility] 06-17-2023 10:00-0400 Systolic blood pressure 124 mm[Hg] Dena Silva MD Work Phone: [facility] 06-16-2023 12:03-0400 Body height 172.7 cm Dena Silva MD Work Phone: [facility] [employer] 06-16-2023 12:03-0400 Body mass index (BMI) [Ratio] 27.83 kg/m2 Dena Silva MD Work Phone: [facility] 06-16-2023 [id number] Body weight 83.01 kg Dena Silva MD Work Phone: [facility] Encounters Encounter Date Encounter Type Care Provider Facility Start: 07-18-2023 End: 08-04-2023 [facility] Start: 06-17-2023 End: 06-19-2023 Evaluation and management of inpatient [facility] Non-Invasive Cardiology Comment on above: Arrived Start: 06-16-2023 End: 06-17-2023 Evaluation and management of inpatient Dena Silva MD Work Phone: [facility] Comment on above: Near syncope (Primar y Dx); Pre-syncope; Parkinson's disease without dyskinesia or fluctuating manifestations (HCC) Start: 04-27-2023 Telephone encounter Naila baldwin DO Work Phone: [facility] Medical Physician Sign In Start: 04-21-2023 End: 04-21-2023 ambulatory MARLENA PADGETT [facility] Start: 04-21-2023 End: [facility]: 04-19-2023 End: 04-21-2023 ambulatory ANDRZEJ FINE [facility] Start: 04-18-2023 End: 04-21-2023 ambulatory NAILA SMITH [facility] Start: 04-16-2023 End: 04-21-2023 ambulatory HECTOR SU [facility] Start: 04-16-2023 End: 04-21-2023 Emergency department patient visit JASON WALDEN [facility] Start: 04-16-2023 End: 04-20-2023 ambulatory [facility] Start: 01-25-2023 ambulatory MARAL [facility] Start: 01-18-2023 End: 01-19-2023 ambulatory [facility] Start: 10-26-2022 ambulatory [facility] Start: 10-07-2022 End: 10-10-2022 ambulatory [facility] Start: 10-04-2022 End: 10-05-2022 ambulatory [facility] Start: 09-07-2022 End: 09-10-2022 ambulatory [facility] Start: 09-07-2022 End: 09-09-2022 Subsequent hospital visit by physician Vale Evangelista MD Work Phone: [facility] MRI Comment on above: Cognitive impairment Start: 08-26-2022 End: 08-29-2022 ambulatory [facility] Start: 08-11-2022 End: 08-12-2022 [facility] Start: 08-11-2022 End: 08-11-2022 Subsequent hospital visit by physician Dandre Swanson MD Work Phone: [facility] Comment on above: B12 deficiency Start: 02-17-2022 End: 02-17-2022 Subsequent hospital visit by physician Kingston Quiles PT [facility] Start: 02-08-2022 End: 02-08-2022 Subsequent hospital visit by physician Kingston Quiles PT [facility] Start: 02-03-2022 End: 02-03-2022 Subsequent hospital visit by physician Nandini Rizzo LOG WASHER [facility] Start: 01-01-2022 End: 01-04-2022 ambulatory [facility] Start: 01-01-2022 End: 01-03-2022 Subsequent hospital visit by physician Katherine Ochoa [facility] MRI Comment on above: Tremors of nervous s ystem; Cervical arthritis; Gait abnormality Start: 10-30-2021 End: 11-01-2021 Subsequent hospital visit by physician [facility] Xr Rm [address] [facility] Radiology Comment on above: Tremors of nervous s ystem Start: 10-29-2021 End: 10-29-2021 Subsequent hospital visit by physician aDndre Swanson MD [facility] Comment on above: Tremors of nervous s ystem; Type 2 diabetes mellitus without complication, with long-term current use of insulin (HCC); Other hyperlipidemia Procedures Date Procedure Procedure Detail Performing Clinician Start: 06-17-2023 Electroencephalogram w/rec awake&asleep Josef Ruffinsarai DO Work Phone: Start: 06-17-2023 Glucose blood reagent strip Marta horn MD Work Phone: Start: 06-17-2023 Myocardial spect multiple studies Johan Wiseman DO Work Phone: Start: 06-17-2023 End: 06-17-2023 Cortisol total Yancy Virgen MD Work Phone: Start: 06-17-2023 BASIC METABOLIC PANEL W/ REFLEX TO MG FOR LOW K Rodriguez Bernal MD Work Phone: Start: 06-17-2023 End: 06-17-2023 Blood count complete auto&auto difrntl wbc Rodriguez Bernal MD Work Phone: Start: 06-16-2023 Glucose blood reagent strip Marta horn MD Work Phone: Start: 06-16-2023 Glucose blood reagent strip Marta horn MD Work Phone: Start: 06-16-2023 Radiologic exam chest single view Dena Silva MD Work Phone: Start: 06-16-2023 End: 06-16-2023 Basic metabolic panel calcium total Dena Silva MD Work Phone: Start: 06-16-2023 Ecg routine ecg w/least 12 lds w/i&r Dena Silva MD Work Phone: Start: 04-19-2023 Colonoscopy Dena Silva MD Work Phone: Start: 08-11-2022 VITAMIN B12 & FOLATE Maira VAZQUEZ RN - PAPER CORE MACHINE OPERATOR Work Phone: Start: 01-01-2022 Mri spinal canal cervical w/o contrast matrl Dandre Swanson MD Work Phone: Start: 10-30-2021 Radex spine cervical 2 or 3 views Dandre Swanson MD Work Phone: Start: 10-29-2021 Cyanocobalamin vitamin b-12 Dandre winter MD Work Phone: Start: 10-29-2021 Lipid panel Dandre Swanson MD Work Phone: Start: 11-04-2020 Microalbumin [Mass/volume] in Urine by Test strip Naila Smith DO Work Phone: Start: 01-27-2018 Colonoscopy Dandre Swanson MD Work Phone: Plan of Treatment Date Care Activity Detail Author Start: 04-19-2033 Screening for malign ant neoplasm of colon [facility] Start: 01-28-2028 Screening for malign ant neoplasm of colon [facility] Start: 06-16-2024 GFR test (Diabetes, CKD 3-4, OR last GFR 15-59) GFR test (Diabetes, CKD 3-4, OR last GFR 15-59) [facility] Start: 05-18-2024 Hemoglobin A1c measurement A1C test (Diabetic or Prediabetic) [facility] Start: 04-20-2024 Adult BMI Screening Adult BMI Screen ing [employer] Start: 04-19-2024 Tobacco Screening [facility] Start: 03-31-2024 Depression Monitoring Depression Mon itoring [facility] Start: 01-13-2024 Influenza vaccination Flu vacc ine (Season Ended) [facility] Comment on above: Postponed from 09/28 (Patient Refused) Start: 10-05-2023 Lipid panel Lipids [employer] Start: 09-09-2023 Annual Wellness Visi t (AWV) Annual Wellness Visit (AWV) [facility] Start: 09-09-2023 Depression Monitoring Depression Mon itoring [facility] [employer] [facility] Start: 09-09-2023 Hemoglobin A1c measurement A1C test (Diabetic or Prediabetic) [facility] [employer] Start: 09-08-2023 GFR test (Diabetes, CKD 3-4, OR last GFR 15-59) GFR test (Diabetes, CKD 3-4, OR last GFR 15-59) [facility] [employer] Start: 08-24-2023 End: 08-24-2023 Patient encounter procedure 08/24/2023 1:20 PM EDT Office Visit [facility] [id number] [place], [place] [id number] [place] [id number] [place], [place] [id number] 3 month DM f/u [facility] Comment on above: 3 month DM f/u Start: 08-11-2023 End: 08-11-2023 Patient encounter procedure 08/11/2023 11:40 AM EDT Office Visit [facility] Neurology Specialist [id number] [place] [phone] Vale Evangelista MD [address] [place], [place] [id number] 4M PT Parkinsons [facility] Neurology Specialist Comment on above: 3M PT Parkinsons Start: 02-28-2023 Annual Wellness Visi t (Medicare Advantage) Annual Wellness Visit (Medicare Advantage) [facility] [employer] Start: 01-19-2023 Depression Monitoring Depression Mon itoring [facility] [employer] Start: 01-19-2023 Hemoglobin A1c measurement A1C test (Diabetic or Prediabetic) [facility] [employer] Start: 01-19-2023 [facility] Comment on above: Postponed from 09/28 (Patient Refused) Postponed from 09/28 (Patient Refused) Start: 01-19-2023 Urine screening for protein [facility] Start: 01-12-2023 End: 01-12-2023 Patient encounter procedure 01/12/2023 Office Visit [place] [id number] [address] [place] [address] [facility] Start: 12-13-2022 End: 12-13-2022 Patient encounter procedure 12/13/2022 Office Visit Neurology Vale Evangelista MD [address] [place], [place] [phone] [facility] Neurology Specialist Start: 10-29-2022 COVID-19 Vaccine ( season) COVID-19 Vaccine ( season) [facility] Start: 10-29-2022 GFR test (Diabetes, CKD 3-4, OR last GFR 15-59) GFR test (Diabetes, CKD 3-4, OR last GFR 15-59) [facility] Start: 10-29-2022 Influenza vaccination Influenza Vacc ine [facility] Start: 10-29-2022 Lipid panel Lipids [facility] Start: 10-13-2022 Depression Monitoring Depression Mon itoring [facility] Start: 10-13-2022 Hemoglobin A1c measurement A1C test (Diabetic or Prediabetic) [facility] Start: 09-28-2022 Influenza vaccination Flu vaccine (# 1) [facility] Start: 09-08-2022 End: 09-08-2022 Patient encounter procedure 09/08/2022 Office Visit [place] [address] [facility] [place] [address] [facility] Start: 08-12-2022 End: 08-12-2022 Patient encounter procedure 08/12/2022 Office Visit Neurology Vale Evangelista MD [address] [facility] [address] [place], [place] [id number] [facility] Neurology Specialist Start: 05-11-2022 End: 05-11-2022 Patient encounter procedure 05/11/2022 Office Visit Neurology Maira Morales APRN - PAPER CORE MACHINE OPERATOR [address] [address] [facility] Neurology Specialist Start: 02-24-2022 End: 02-24-2022 Patient encounter procedure 02/24/2022 Appointment Physical Therapy Kingston Quiles, PT [facility] Start: 02-17-2022 End: 02-17-2022 Patient encounter procedure 02/17/2022 Appointment Physical Therapy Kingston Quiles, PT [facility] Start: 02-15-2022 End: 02-15-2022 Patient encounter procedure 02/15/2022 Appointment Physical Therapy Prasanth Felipe, LOG WASHER [facility] Start: 02-10-2022 End: 02-10-2022 Patient encounter procedure 02/10/2022 Appointment Physical Therapy Prasanth Felipe, LOG WASHER [facility] Start: 02-08-2022 End: 02-08-2022 Patient encounter procedure 02/08/2022 Appointment Physical Therapy Kingston Quiles, PT [facility] Start: 01-19-2022 End: 01-19-2022 Patient encounter procedure 01/19/2022 Office Visit [place] [address] [facility] [place] [address] [place] [address] [facility] Start: 01-14-2022 End: 01-14-2022 Patient encounter procedure 01/14/2022 Office Visit Neurology Maira Morales APRN - CNP [address] [address] [facility] Neurology Specialist Start: 01-11-2022 End: 01-11-2022 Patient encounter procedure 01/11/2022 Office Visit Neurology Maira Morales, AIR BREAKER OPERATOR - PAPER CORE MACHINE OPERATOR [address] [place] [address] [facility] Neurology Specialist Start: 11-20-2021 Lipid panel Lipids [facility] Start: 11-04-2021 Diabetic foot examination Diabetic foot exam [facility] Start: 11-04-2021 Urine screening for protein [facility] Start: 10-29-2021 Influenza vaccination Flu vaccine (# 1) [facility] Start: 09-28-2021 Influenza vaccination Flu vaccine (# 1) [facility] Start: 06-30-2021 Annual Wellness Visi t (AWV) Annual Wellness Visit (AWV) [facility] Start: 04-26-2021 COVID-19 Vaccine (4 - Booster for Moderna series) COVID-19 Vaccine (4 - Booster for Moderna series) [facility] Start: 02-18-2021 COVID-19 Vaccine (4 - Booster for Moderna series) COVID-19 Vaccine (4 - Booster for Moderna series) [facility] Start: 02-18-2021 COVID-19 Vaccine (4 - Booster) COVID-19 Vaccine (4 - Booster) [facility] Start: 12-29-2019 Diabetic retinal exam Diabetic retin al exam [facility] Start: 12-29-2019 Glaucoma screening Diabetic retinal exam [facility] Start: 12-20-2019 Annual Wellness Visi t (AWV) Annual Wellness Visit (AWV) [facility] Start: 2014 Fall Risk Screening Fall Risk Screen [facility] [employer] [facility] Start: 2009 Respiratory Syncytia l Virus (RSV) or age 60 yrs+ (1 - 1-dose 60+ series) Respiratory Syncytial Virus (RSV) or age 60 yrs+ (1 - 1-dose 60+ series) [facility] Start: 1994 Screening for malign ant neoplasm of colon [facility] Start: 1968 DTaP,Tdap and Td Vaccines (1 - Tdap) DTaP,Tdap and Td Vaccines (1 - Tdap) [facility] Start: 1968 DTaP/Tdap/Td vaccine (1 - Tdap) DTaP/Tdap/Td vaccine (1 - Tdap) [employer] Start: 07-15-1967 Adult BMI Follow Up Plan Adult BMI Follow Up Plan [facility] [employer] [facility] Start: 07-15-1967 Diabetic foot examination [facility] Start: 07-15-1967 Hepatitis C screening Hepatitis C sc reen [facility] Start: 1961 Depression Screening [facility] Start: 07-15-1955 Pneumococcal 65+ yea rs Vaccine (1 - PCV) Pneumococcal 65+ years Vaccine (1 - PCV) [facility] Start: 07-15-1955 Pneumococcal 65+ yea rs Vaccine (1 of 2 - PCV) Pneumococcal 65+ years Vaccine (1 of 2 - PCV) [facility] Start: 1949 Glaucoma screening [facility]abetic [facility]: [facility] Medicare Annual Wellness Visit Medicare Annual Wellness Visit [facility] [employer] [facility] End: 06-23-2023 Basic Metabolic Panel w/ Reflex to MG Basic Metabolic Panel w/ Reflex to MG Lab Routine Daily for 7 Days starting 06/17/2023 until 06/23/2023, 1 completed [facility] Comment on above: Daily for 7 Days sta rting 06/17/2023 until 06/23/2023, 1 completed End: 06-21-2023 CBC W Auto Differential panel - Blood CBC with Auto Differential Lab Routine Daily for 5 Days starting 06/17/2023 until 06/21/2023, 1 completed [employer] Comment on above: Daily for 5 Days sta rting 06/17/2023 until 06/21/2023, 1 completed Cortisol Total Cortisol Total L ab Routine 06/17/2023 10:15 AM EDT [employer] Work Phone: EKG 12 Lead EKG 12 Lead ECG Routine 06/16/2023 11:19 AM EDT [facility] Glucose [Mass/volume ] in Serum or Plasma [facility] Comment on above: 4X Daily (AC & HS) u ntil discontinued starting 06/16/2023 As Needed until disc ontinued starting 06/16/2023 End: 09-07-2022 MRI BRAIN W WO CONTRAST [employer] Comment on above: 1 Occurrences starti ng 09/07/2022 until 09/07/2022 End: 06-17-2023 Nasal Cannula Oxygen Nasal Cannula Oxygen Respiratory Care Routine As Needed until discontinued starting 06/17/2023 [employer] Comment on above: As Needed until disc ontinued starting 06/17/2023 Nuclear stress test with myocardial perfusion Nuclear stress test with myocardial perfusion CV Stress/NM Stress Routine Near syncope Pre-syncope 06/17/2023 2:02 PM EDT [facility] Oxygen therapy [[facility] Data Set] Initiate Oxygen Therapy Protocol Respiratory Care Routine As Needed until discontinued starting 06/16/2023 [employer] Work Phone: Comment on above: As Needed until disc ontinued starting 06/16/2023 Immunizations Immunization Date Immunization Notes Care Provider [facility] 07-23-2021 zoster vaccine recombinant Nandini Rizzo LOG WASHER [employer] Work Phone: 05-12-2021 zoster vaccine recombinant Dandre Swanson MD Work Phone: [employer] 12-24-2020 COVID-19, MODERNA BL UE border, Primary or Immunocompromised, (age 12y+), IM, 100 mcg/0.5mL Dandre Swanson MD Work Phone: [employer] Work Phone: 05-22-2020 COVID-19, mRNA, LNP- S, PF, 100mcg/0.5mL Dose Naila Smith DO Work Phone: [employer] 05-22-2020 COVID-19, [place] Vaccine , Vaccine Unspecified Vale Evangelista MD Work Phone: [employer] 04-24-2020 COVID-19, mRNA, LNP- S, PF, 100mcg/0.5mL Dose Naila Smith DO Work Phone: [employer] 04-24-2020 COVID-19, [place] Vaccine , Vaccine Unspecified Vale Evangelista MD Work Phone: [facility] Payers Date Payer Category Payer Medicare [employer] MEDICARE UHC MEDICARE ADVANTAGE PPO [id number] 2023-Present [phone] [address] [address] [place] [address] [id number] 2022 Medicare [id number] 2021 Medicare [id number] .[id number] 1950 Unknown [id number] 2.16.840.1.304382.3.579.2.1 77 1949 Unknown [id number] 2.16.840.1.451530.3.579.2.1 77 1949 Unknown [id number] 2.16.840.1.336376.3.579.2.1 77 1949 Unknown [id number] 2.16.840.1.032381.3.579.2.1 77 1949 Unknown [id number] 2.16.840.1.604378.3.579.2.1 286 1949 Unknown [id number] 2.16.840.1.740913.3.579.2.1 286 1949 Unknown [id number] 2.16.840.1.359177.3.579.2.1 286 1949 Unknown [id number] 2.16.840.1.419419.3.579.2.1 286 1949 Unknown [id number] 2.16.840.1.904777.3.579.2.1 286 1949 Unknown [id number] 2.16.840.1.396916.3.579.2.1 286 1949 Unknown [id number] 2.16.840.1.429664.3.579.2.1 286 1949 Unknown [id number] 2.16.840.1.074213.3.579.2.1 286 1949 Unknown [id number] 2.16.840.1.799829.3.579.2.1 286 1949 Unknown [id number] 2.16.840.1.877132.3.579.2.1 286 1949 Unknown [id number] 2.16.840.1.873725.3.579.2.1 286 1949 Unknown [id number] 2.16.840.1.681892.3.579.2.1 286 1949 Unknown [id number] 2.16.840.1.245366.3.579.2.1 75 1949 Unknown [id number] 2.16.840.1.719836.3.579.2.1 75 1949 Unknown [id number] 2.16.840.1.002421.3.579.2.1 75 1949 Unknown [id number] 2.16.840.1.136751.3.579.2.1 76 1949 Unknown [id number] 2.16.840.1.287040.3.579.2.1 76 1949 Unknown [id number] 2.16.840.1.851623.3.579.2.1 76 Social History Date Type Detail Facility Start: 10-20-2017 End: 05-06-2023 Tobacco smoking status [facility] Ex-smoker [employer] Phone: Start: 02-29-1972 End: 05-04-2015 History of tobacco use Current smoker [employer] Phone: Start: 02-29-1972 End: 05-04-2015 History of tobacco use Cigarette Smoker [employer] Work Phone: Start: 10-20-2017 End: 06-16-2023 Cigarettes smoked current (pack per day) - Reported 1 [facility] Work Phone: Start: 10-20-2017 End: 05-06-2023 Tobacco use and exposure Smokeless tobacco non-user [employer] Work Phone: Start: 10-13-2021 End: 04-19-2023 Alcohol intake Current non-drinker of alcohol (finding) [employer] Work Phone: Start: 07-07-2021 History SDOH Financial 4 [employer] Work Phone: Start: 07-07-2021 End: 09-08-2022 History SDOH Food Worry 1 [employer] Work Phone: Start: 07-01-2020 End: 09-08-2022 History SDOH Transport Med 2 [employer] Work Phone: Start: 1950 Sex Assigned At Not on file B [employer] Phone: Start: 01-19-2022 End: 06-17-2023 Alcohol intake Current drinker of alcohol (finding) [facility] Work Phone: Start: 01-14-2022 Alcohol Comment socially [employer] Work Phone: Start: 01-04-2022 End: 01-14-2022 Exposure to SARS-CoV-2 (event) Not sure [facility] Start: 09-08-2022 History SDOH Physica l Activity DPW 3 [facility] Start: 09-08-2022 History SDOH Physica l Activity MPS 0 [employer] Start: 09-08-2022 History SDOH Financial 5 [employer] Start: 04-16-2023 End: 06-16-2023 [facility] [employer] Work Phone: Has the electric, [employer], [employer], or water company threatened to shut off services in your home in past 12Mo No [employer] Work Phone: In the past 12 month s, has lack of transportation kept you from medical appointments or from getting medications? No [employer] Start: 05-03-2016 Alcohol Comment socially yearly [facility] [employer] How often to you hav e a drink containing alcohol? Never [facility] (I/We) worried whe er (my/our) food would run out before (I/we) got money to buy more. Never true [employer] NEGATED: Highlighted rowStart: THANIAMoriah History of tobacco use Passive smoker [employer] Work Phone: Medical Equipment Procedure Code Equipment Code Equipment Origin al Text Equipment Identifier Dates 1 strip by Other route 4 times daily Test 2 times a day & as needed for symptoms of irregular blood glucose. Dispense sufficient amount for indicated testing frequency plus additional to accommodate PRN testing needs. [id number] Start: 08-16-2019 1 each by In Vit ro route 4 times daily As needed. [id number] Start: 08-16-2019 USE DIRECTED [id number] Start: 09-03-2021 1 strip by Other route 4 times daily Test 2 times a day & as needed for symptoms of irregular blood glucose. Dispense sufficient amount for indicated testing frequency plus additional to accommodate PRN testing needs. [id number] Start: 06-22-2022 100 each by Does not apply route daily [id number] Start: 06-22-2022 Brng Tib 99aqu26 mm 0d Kn Ant - [id number] Start: 05-14-2016 Brng Tib 79/83mm x11mm 3d Std - [id number] Start: 10-22-2016 Cement Bn [employer] Radpq 40g Rpl [id number] - [id number] Start: 05-14-2016 [employer] Radpq 40g Rpl [id number] - [id number] Start: 10-22-2016 Cmpt Ptlr Thn 34 mm 3 Pg Kn Ser - [id number] Start: 05-14-2016 Ty Tib 79mm Cocr Kn I Beam - [id number] Start: 10-22-2016 USE DIRECTED [id number] Start: 01-05-2023 CHECK BLOOD SUGA R TWICE DAILY [id number] Start: 05-31-2023 CHECK BLOOD SUGA R TWICE DAILY [id number] Start: 05-31-2023 Clinical Notes 02-17-2022 to 06-17-2023 Pilar Aldana RN - 06/17/2023 4:43 PM EDPilar Merrill RN - 06/17/2023 4:38 PM EDKarol Ferguson - 06/17/2023 4:36 PM EDTSDelores brannon - 06/17/2023 4:25 PM EDTDischarge Instructions Note Date & Type Note Facility 06-17-2023 History of Present illness Narrative The patient may be discharged to home from neurology perspective per Marilyn Cao. Dr. Wiseman states No ischemia according to the cardiac stress test And The patient is Okay for outpatient follow up . EEG explained and completed. Report to follow. CLINICAL PHARMACY NOTE: MEDS TO BEDS Total # of Prescriptions Filled: 1 The following medications were delivered to the patient: Midodrine 2.5MG tablets Additional Documentation: Carbidopa Levodopa 25/250MG Tablets and Pyridostimine [place] 60MG tablets on hold, PT has plenty at home per . Midodrine 2.5MG tablets filled for 10 day supply with ins override since Sent original prescription to mail order. Midodrine was dropped off to PT's room and signed for by Bettie, of PT 4:36PM. 06/17/23 Ok to dicharge per family wish if cleared by cardiology and neurology Bertram Hatch MD 06/17/2023 [facility] Occupational Therapy Evaluation Date: 06/17/23 Patient Name: Susie Boyce Room: Account: [id number] : 1950 (72 y.o.) Gender: male Discharge Recommendations: The patient's needs are being met with no further Occupational Therapy recommended at discharge. Referring Practitioner: Rodriguez Bernal MD Diagnosis: pre-syncope Past Medical History: has no past medical history on file. Past Surgical History: has a past surgical history that includes hernia repair and joint replacement (2017). Restrictions Restrictions/Precautions Restrictions/Precautions: General Precautions, Fall Risk Required Braces or Orthoses?: No Vitals Vitals O2 Device: None (Room air) Subjective Subjective: Pt pleasant and agreeable to engage in OT/PT eval Comments: Ok per NOEL Mccracken for OT/PT eval Subjective Pain: pt denies Social/Functional History Social/Functional History Lives With: Spouse Type of Home: House Home Layout: One level Home Access: Stairs to enter with rails Entrance Stairs - Number of Steps: 2 ZION through garage Entrance Stairs - Rails: Left Bathroom Shower/Tub: Walk-in shower, Doors, Shower chair with back Bathroom Toilet: Handicap height Bathroom Equipment: Grab bars in shower (counter and sink nearby in half bath) Bathroom Accessibility: Walker accessible Home Equipment: Cane, Walker, rolling, Natural Resources Engineer (gait belt, glucometer) ADL Assistance: Independent Homemaking Assistance: Needs assistance (Spouse mainly completes cleaning, cooking, laundry. 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 Nurse comes 1x per week. Spouse is able to assist as needed. Objective Orientation Overall Orientation Status: Within Functional Limits Orientation Level: Oriented to place, Oriented to time, Oriented to person, Oriented to situation Cognition Cognition Comment: Hx: dementia Sensation Overall Sensation Status: Impaired (neuropathy) ADL Feeding: Independent Feeding Skilled Clinical Factors: pt eating breakfast while sitting upright in bed Grooming: Supervision Grooming Skilled Clinical Factors: standing at sinkside for hand hygiene UE Bathing: Modified independent LE Bathing: Supervision UE Dressing: Modified independent LE Dressing: Supervision LE Dressing Skilled Clinical Factors: Able to adjust B socks Toileting: Supervision Toileting Skilled Clinical Factors: Pt voided while seated on toilet. SUP for clothing management. Functional Mobility: Supervision Functional Mobility Skilled Clinical Factors: with RW Additional Comments: ADL scores based on skilled observations and clinical reasoning unless otherwise noted. UE Function LUE AROM (degrees) LUE AROM : WFL Left Hand AROM (degrees) Left Hand AROM: WFL Tone LUE LUE Tone: Normotonic LUE Strength L Hand General: 4/5 LUE Strength Comment: grossly 4/5 RUE AROM (degrees) RUE AROM : WFL Right Hand AROM (degrees) Right Hand AROM: WFL Tone RUE RUE Tone: Normotonic RUE Strength R Hand General: 4/5 RUE Strength Comment: grossly 4/5 Fine Motor Skills/Coordination Coordination Movements Are Fluid And Coordinated: No Coordination and Movement Description: Tremors Bed Mobility Bed mobility Supine to Sit: Modified independent Sit to Supine: Modified independent Scooting: Modified independent Bed Mobility Comments: Bed mobility completed with HOB elevated Balance Balance Sitting Balance: Independent Standing Balance: Supervision Transfers Transfers Sit to stand: Supervision Stand to sit: Supervision Functional Mobility Functional - Mobility Device: Rolling Walker Activity: Other, To/From therapy gym (in-room and hallway) Assist Level: Supervision Functional Mobility Comments: Pt ambulated to/from therapy gym with SUP and no LOB noted. Assessment Assessment Assessment: Pt demonstrated ability to complete toileting tasks with SUP and Good safety. Pt demonstrated SUP for functional mobility with RW to/from therapy gym with no LOB noted and Good safety. Pt denies any concerns or deficits with self-care tasks. Pt functional at baseline with no acute OT needs identified at this time. Please re-order if there is a change in status. Decision Making: Low Complexity No Skilled OT: At baseline function, Safe to return home, No OT goals identified Activity Tolerance Activity Tolerance: Patient Tolerated treatment well Safety Devices Type of Devices: Call light within reach, Gait belt, Left in bed, Nurse notified (Spouse present) Patient Education Patient Education Education Given To: Patient Education Provided: Role of Therapy, Plan of Care Education Method: Verbal Barriers to Learning: Cognition Education Outcome: Verbalized understanding Functional Outcome Measures [facility] Daily Activity - Inpatient How much help is needed for putting on and taking off regular lower body clothing?: A Little How much help is needed for bathing (which includes washing, rinsing, drying)?: A Little How much help is needed for toileting (which includes using toilet, bedpan, or urinal)?: A Little How much help is needed for putting on and taking off regular upper body clothing?: None How much help is needed for taking care of personal grooming?: A Little How much help for eating meals?: None [facility] Inpatient Daily Activity Raw Score: 20 [facility] Inpatient ADL T-Scale Score : 42.03 ADL Inpatient CMS 0-100% Score: 38.32 ADL Inpatient CMS G-Code Modifier : CJ Goals Short Term Goals Time Frame for Short Term Goals: D/C OT Plan Occupational Therapy Plan Times Per Week: D/C OT OT Individual Minutes OT Individual Minutes Time In: 1027 Time Out: 1101 Minutes: 34 Time Code Minutes Timed Code Treatment Minutes: 19 Minutes Physical Therapy Facility/Department: [facility] Physical Therapy Initial Assessment Name: Susie Boyce : 1950 Date of Service: 06/17/2023 Discharge Recommendations: Home with assist PRN PT Equipment Recommendations Equipment Needed: No Patient Diagnosis(es): The primary encounter diagnosis was Near syncope. A diagnosis of Pre-syncope was also pertinent to this visit. Past Medical History: has no past medical history on file. Past Surgical History: has a past surgical history that includes hernia repair and joint replacement (2017). Assessment Assessment: pt demonstrates safe, functional mobility at this time Decision Making: Low Complexity History: Syncopy Exam: WFLs Clinical Presentation: stable No Skilled PT: No PT goals identified Requires PT Follow-Up: No Activity Tolerance Activity Tolerance: Patient tolerated evaluation without incident Plan Physical Therapy Plan Additional Comments: Discontinue PT Safety Devices Type of Devices: Left in chair, Call light within reach ( present) Restrictions Restrictions/Precautions Restrictions/Precautions: General Precautions Required Braces or Orthoses?: No Subjective Pain: pt denies pain at this time General Patient assessed for rehabilitation services?: Yes Family / Caregiver Present: Yes Follows Commands: Within Functional Limits Subjective Subjective: pt pleasant and cooperative Social/Functional History Social/Functional History Lives With: Spouse Type of Home: House Home Layout: One level Home Access: Stairs to enter with rails Entrance Stairs - Number of Steps: 2 ZION through garage Entrance Stairs - Rails: Left Bathroom Shower/Tub: Walk-in shower, Doors, Shower chair with back Bathroom Toilet: Handicap height Bathroom Equipment: Grab bars in shower (counter and sink nearby in half bath) Bathroom Accessibility: Walker accessible Home Equipment: Cane, Walker, rolling, Natural Resources Engineer (gait belt, glucometer) Receives Help From: Family ADL Assistance: Independent Homemaking Assistance: Needs assistance (Spouse mainly completes cleaning, cooking, laundry. 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 Nurse comes 1x per week. Spouse is able to assist as needed. Vision/Hearing Vision Vision: Impaired Vision Exceptions: Wears glasses at all times Hearing Hearing: Within functional limits Cognition Orientation Overall Orientation Status: Within Functional Limits Orientation Level: Oriented to place;Oriented to time;Oriented to person;Oriented to situation Cognition Cognition Comment: Hx: dementia Objective O2 Device: None (Room air) AROM RLE (degrees) RLE AROM: WNL AROM LLE (degrees) LLE AROM : WNL Strength RLE Strength RLE: WNL Strength LLE Strength LLE: WNL Bed mobility Supine to Sit: Modified independent Sit to Supine: (pt left up in chair) Scooting: Independent Bed Mobility Comments: head of bed elevated Transfers Sit to Stand: Supervision Stand to Sit: Supervision Ambulation Surface: Level tile Device: Rolling Walker Assistance: Supervision Distance: 100ft x 2 Stairs/Curb Stairs?: Yes Stairs # Steps : 2 Stairs Height: 6 Rails: Left ascending Assistance: Stand by assistance Balance Sitting - Static: Good Sitting - Dynamic: Good Standing - Static: Good Standing - Dynamic: Fair;+ Therapy Time Individual Concurrent Group Co-treatment Time In 1027 Time Out 1101 Minutes 34 Timed Code Treatment Minutes: 10 Minutes Angelica Hill PT [facility] OCCUPATIONAL THERAPY MISSED TREATMENT NOTE INPATIENT Date: 06/17/23 Patient Name: Susie Boyce Room: : 1950 (72 y.o.) Gender: male REASON FOR MISSED TREATMENT: Patient unable to participate - Patient OOR at stress test. OT will continue to follow and check back as time permits. Images from the original note were not included. Physical Therapy Physical Therapy Cancel Note DATE: 06/17/2023 NAME: Susie Boyce : 1950 Patient not seen this date for Physical Therapy due to: Pt down for stress test- will attempt eval later today [facility] PROGRESS NOTE 06/17/2023 7:01 AM Name: Susie Boyce Acct: [id number] Room: Day: 1 Admit Date: 06/16/2023 11:18 AM PCP: Dandre Swanson MD Code Status: DNR-CCA Subjective: C/C: Chief Complaint Patient presents with Loss of Consciousness Interval History Status: not changed. Patient getting stress test this morning not seen. Discussed with nursing, no acute events reported overnight. Will see patient later on rounds, refer to attending attestation for updated subjective and plan. Brief History: Patient is a 72-year-old male with past medical history of Parkinson's, insulin-dependent diabetes who presents from his cardiology office for an episode of presyncope. Patient was seeing Dr. Wiseman due to concerns of episodes of lightheadedness, sweating, notable hypotension and syncope. Was to be scheduled for outpatient stress test however during the visit had an episode of presyncope and BP 80/50 and was instructed to be brought to the hospital by EMS for evaluation by neurology and a stress test. Patient was admitted to the hospital in [place] 3 months ago for an episode of hypotension and loss of consciousness while sitting down at a table eating. Blood sugar normal at that time but was found to be hypotensive by EMS. He had another subsequent episode before being brought to the ER. He was admitted to the hospital and told he had autonomic dysregulation, started on pyridostigmine by cardiology. Unsure if he had any neurologic workup at that time. Patient had another episode after he was discharged and was brought back to [place]. Since then he has seen neurology who increased donepezil to 15 mg. Was also to admitted to [facility] for fatigue, dark stools and positive FOBT. EGD and colonoscopy unremarkable, and told to stop metformin. His PCP saw him on 05/19/2023 at which time his BP was 100/58 and was increased on pyridostigmine to 30mg at night and 60mg in the morning. Patient describes episodes as sudden onset of chills, sweating, dizziness and confusion that occur while he is seated, standing, and with activity. They last anywhere from 30 seconds to 2 minutes per his . Patient's states that she has seen more than 5 of these episodes and he appears dazed with his eyes rolling back and snaps out of it when she calls his name multiple times loudly at him. Has been evaluated during these episodes and found to be hypotensive. Denies any loss of consciousness since [place]. Denies any palpitations. In the ED patient was vitally stable, negative orthostats, CBC and CMP unremarkable, troponin, BNP, chest x-ray all WNL. No complaints. Denies any chest pain, palpitations, shortness of breath, fever or chills. Denies any abdominal pain, nausea, vomiting, or diarrhea. Review of Systems: Review of Systems Constitutional: Negative for chills and fever. HENT: Negative for hearing loss, sinus pressure and sinus pain. Respiratory: Negative for chest tightness, shortness of breath and wheezing. Cardiovascular: Negative for chest pain and palpitations. Gastrointestinal: Negative for abdominal pain, diarrhea and nausea. Genitourinary: Negative for frequency, hematuria and urgency. Musculoskeletal: Negative for gait problem, myalgias and neck pain. Neurological: Negative for tremors, speech difficulty and weakness. Psychiatric/Behavioral: Negative for agitation, decreased concentration and dysphoric mood. Medications: Allergies: Allergies Allergen Reactions Metformin And Related Diarrhea Penicillins Anaphylaxis Gemtesa [Vibegron] Rash Simvastatin Other (See Comments) Leg cramps Current Meds: Scheduled Meds: sodium chloride flush 5-40 mL IntraVENous 2 times per day enoxaparin 40 mg SubCUTAneous Daily atorvastatin 40 mg Oral QAM carbidopa-levodopa 1 tablet Oral 4x Daily donepezil 15 mg Oral Nightly FLUoxetine 20 mg Oral Daily FLUoxetine 40 mg Oral Daily insulin glargine 15 Units SubCUTAneous Daily midodrine 2.5 mg Oral TID WC pyRIDostigmine 30 mg Oral Nightly pyRIDostigmine 60 mg Oral Daily Continuous Infusions: sodium chloride dextrose PRN Meds: sodium chloride flush, sodium chloride, potassium chloride OR potassium alternative oral replacement OR potassium chloride, magnesium sulfate, ondansetron OR ondansetron, polyethylene glycol, acetaminophen OR acetaminophen, glucose, dextrose bolus OR dextrose bolus, glucagon (rDNA), dextrose Data: Past Medical History: has no past medical history on file. Social History: reports that he quit smoking about 11 years ago. His smoking use included cigarettes. He started smoking about 51 years ago. He has a 40.0 pack-year smoking history. He has never been exposed to tobacco smoke. He has never used smokeless tobacco. He reports current alcohol use. He reports that he does not use drugs. Family History: Family History Problem Relation Age of Onset Alzheimer's Disease Mother Cancer Sister Dementia Maternal Grandmother Vitals: BP (!) 145/89 Pulse 70 Temp 97.5 F (36.4 C) Resp 18 Ht 1.727 m (5' 8 ) Wt 83 kg (183 lb) SpO2 95% BMI 27.83 kg/m Temp (24hrs), Av.4 F (36.3 C), Min:97 F (36.1 C), Max:97.6 F (36.4 C) Recent Labs 06/16/23 1518 06/16/23200106/17/23 0644 POCGLU 92 171* 178* I/O(24Hr): No intake or output data in the 24 hours ending 06/17/23 0701 Labs: @LABDAILY3@ No results found for: SPECIAL No results found for: CULTURE @MLHABGPOC@ Radiology: XR CHEST PORTABLE Result Date: 06/16/2023 EXAMINATION: ONE XRAY VIEW OF THE CHEST 06/16/2023 11:47 am COMPARISON: None. HISTORY: ORDERING SYSTEM PROVIDED HISTORY: chest pain, syncope TECHNOLOGIST PROVIDED HISTORY: chest pain, syncope Reason for Exam: chest pain, syncope FINDINGS: The cardiomediastinal silhouette is within normal limits. There is no consolidation, pneumothorax or evidence for edema. No evidence for effusion. No acute osseous abnormality is identified. No acute airspace disease identified. Physical Examination: Physical Exam Constitutional: General: He is not in acute distress. Cardiovascular: Rate and Rhythm: Normal rate and regular rhythm. Pulses: Normal pulses. Pulmonary: Effort: Pulmonary effort is normal. No respiratory distress. Breath sounds: No wheezing or rales. Abdominal: General: Bowel sounds are normal. There is no distension. Palpations: Abdomen is soft. Tenderness: There is no abdominal tenderness. Musculoskeletal: General: Normal range of motion. Right lower leg: No edema. Left lower leg: No edema. Skin: General: Skin is warm. Capillary Refill: Capillary refill takes less than 2 seconds. Neurological: General: No focal deficit present. Mental Status: He is alert. Mental status is at baseline. Cranial Nerves: No cranial nerve deficit. Motor: No weakness. Psychiatric: Mood and Affect: Mood normal. Behavior: Behavior normal. Assessment: Primary Problem Pre-syncope Active Hospital Problems Diagnosis Date Noted Pre-syncope [R55] 06/16/2023 Plan: Presyncopal episodes with hypotension possibly due to autonomic dysregulation with Parkinson's disease - Orthostats every shift - Continue home pyridostigmine - Midodrine 2.5 mg 3 times daily - Cardiology consulted, appreciate recommendations -Stress test this morning - Neurology consulted, appreciate recommendations Parkinson's disease - PT OT eval and treat - Continue home Sinemet - Continue home donepezil - Needs neuropsychiatric eval outpatient -Neurology consulted, appreciate recommendations Insulin-dependent type 2 diabetes mellitus - Lantus 1515 units daily - Hypoglycemia protocol - POCT glucose checks ACHS DVT Prophylaxis: Lovenox GI Prophylaxis: N/A Diet: adult Dispo: tbd PT/OT/SW: consulted Rodriguez Bernal MD 06/17/2023 7:01 AM Attending Physician Statement I have discussed the care of Susie Boyce and I have examined the patient myself and taken ROS and HPI, including pertinent history and exam findings, with the resident. I have reviewed the rod elements of all parts of the encounter with the resident. I agree with the assessment, plan and orders as documented by the resident. Pharmacy Medication History Note List of current medications patient is taking is complete. Source of information: dispense report, OARRS, [facility] Everywhere Changes made to medication list: Medications flagged for removal (include reason, ex. noncompliance): None Medications removed (include reason, ex. therapy complete or physician discontinued): None Medications added/doses adjusted: Levemir decreased to 22 units daily Metformin ER 500 mg take 2 tabs (1000 mg) daily Other notes (ex. Recent course of antibiotics, Coumadin dosing): OARRS negative Denies use of other OTC or herbal medications. Allergies clarified Medication list provided to the patient: no Medication education provided to the patient: none Prior to Admission Medications Prescriptions Last Dose Informant Patient Reported? Taking? B-D ULTRAFINE III SHORT PEN 31G X 8 MM MISC No No Sig: USE DIRECTED FLUoxetine (PROZAC) 20 MG capsule No No Sig: Take 1 capsule by mouth daily FLUoxetine (PROZAC) 40 MG capsule No No Sig: Take 1 capsule by mouth daily MYRBETRIQ 50 MG TB24 Yes No Sig: Take 50 mg by mouth Every Day SITagliptin (JANUVIA) 50 MG tablet No No Sig: Take 1 tablet by mouth daily TRUE METRIX BLOOD GLUCOSE TEST strip No No Sig: CHECK BLOOD SUGAR TWICE DAILY TRUEplus Lancets 28G MISC No No Sig: CHECK BLOOD SUGAR TWICE DAILY atorvastatin (LIPITOR) 40 MG tablet No No Sig: TAKE 1 TABLET IN THE MORNING blood glucose monitor strips No No Si strip by Other route 4 times daily Test 2 times a day & as needed for symptoms of irregular blood glucose. Dispense sufficient amount for indicated testing frequency plus additional to accommodate PRN testing needs. blood glucose test strips (ASCENSIA AUTODISC ;ONE TOUCH ULTRA TEST ) strip No No Si each by In Vitro route 4 times daily As needed. carbidopa-levodopa (SINEMET) 25-250 MG per tablet No No Sig: Take 1 tablet by mouth 4 times daily donepezil (ARICEPT) 10 MG tablet No No Sig: Take 1.5 tablets by mouth nightly insulin detemir (LEVEMIR FLEXPEN) 100 UNIT/ML injection pen Yes Yes Sig: Inject 22 Units into the skin daily metFORMIN (GLUCOPHAGE-XR) 500 MG extended release tablet Yes Yes Sig: Take 2 tablets by mouth daily (with breakfast) midodrine (PROAMATINE) 2.5 MG tablet No No Sig: Take 1 tablet by mouth 3 times daily pantoprazole (PROTONIX) 40 MG tablet No No Sig: Take 1 tablet by mouth daily pyRIDostigmine (MESTINON) 60 MG tablet No No Sig: Take 0.5 tablets by mouth at bedtime AND 1 tablet every morning. vitamin B-12 (CYANOCOBALAMIN) 100 MCG tablet No No Sig: Take 1 tablet by mouth daily Facility-Administered Medications: None documented in this encounter [facility] 06-17-2023 Hospital Discharge instructions Pilar Aldana RN - 06/17/2023 10:31 AM EDT Your information: Name: Susie Boyce : 1950 Your instructions: Wear compression stockings & abdominal binder to promote safe blood pressures. Contact your physician with any questions or concerns. What to do after you leave the hospital: Recommended diet: diabetic diet Recommended activity: activity as tolerated and no driving. If any problems occur once I leave the hospital I am to contact my primary physician or go to the emergency room. Pilar Aldana RN - 06/17/2023 10:26 AM EDT Continuity of Care Form Patient Name: Suise Boyce : 1950 Admit date: 06/16/2023 Discharge date: 06/17/2023 Code Status Order: DNR-CCA Advance Directives: Admitting Physician: Marta Lozano MD PCP: Dandre Swanson MD Discharging Nurse: Kaykay COHEN Discharging Hospital Unit/Room#: 2043/2043-01 Discharging Unit Emergency Contact: Extended Emergency Contact Information Primary Emergency Contact: Bettie Boyce [facility] [employer] Relation: Spouse Secondary Emergency Contact: [place] Flip [place] [employer] Relation: Child Past Surgical History: Past Surgical History: Procedure Laterality Date HERNIA REPAIR JOINT REPLACEMENT 2017 Immunization History: Immunization History Administered Date(s) Administered COVID-19, MODERNA BLUE border, Primary or Immunocompromised, (age 12y+), IM, 100 mcg/0.5mL 12/24/2020 COVID-19, [place] Vaccine, Vaccine Unspecified 04/24/2020, 05/22/2020 Zoster Recombinant (Shingrix) 05/12/2021, 07/23/2021 Active Problems: Patient Active Problem List Diagnosis Code Arthritis of knee M17.10 Hyperlipidemia E78.5 Type 2 diabetes mellitus (HCC) E11.9 Type 2 diabetes mellitus without complication, with long-term current use of insulin ([facility]) E11.9, Z79.4 Osteoarthritis of knee M17.9 Depression F32.A Osteoarthritis of right knee M17.11 Recurrent major depressive disorder, in partial remission ([facility]) F33.41 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 Abdominal aortic aneurysm (AAA) 30 to 34 mm in diameter ([facility]) I71.40 B12 deficiency E53.8 Parkinson's disease G20.A1 Neuropathy G62.9 Impaired gait R26.9 Type 2 diabetes mellitus with diabetic neuropathy E11.40 Sleep apnea G47.30 Impaired cognition R41.89 Cervical spondylosis M47.812 Pre-syncope R55 Isolation/Infection: Isolation No Isolation Patient Infection Status None to display Nurse Assessment: Last Vital Signs: BP (!) 145/89 Pulse 70 Temp 97.5 F (36.4 C) Resp 18 Ht 1.727 m (5' 8 ) Wt 83 kg (183 lb) SpO2 95% BMI 27.83 kg/m Last documented pain score (0-10 scale): Pain Level: 0 Last Weight: Wt Readings from Last 1 Encounters: 06/16/23 83 kg (183 lb) Mental Status: oriented, alert, and can be confused or forgetful at times IV Access: - None Nursing Mobility/ADLs: Walking Independent Transfer Independent Bathing Independent Dressing Independent Toileting Independent Feeding Independent Bed Operator Independent Med Delivery whole Wound Care Documentation and Therapy: Elimination: Continence: Bowel: Yes Bladder: Yes & wears brief for dribbling Urinary Catheter: None Colostomy/Ileostomy/Ileal Conduit: No Date of Last BM: No intake or output data in the 24 hours ending 06/17/23 1026 No intake/output data recorded. Safety Concerns: At Risk for Falls and syncope Impairments/Disabilities: Vision and wears glasses Nutrition Therapy: Current Nutrition Therapy: - Oral Diet: Carb Control 5 carbs/meal (2000kcals/day) Routes of Feeding: Oral Liquids: No Restrictions Daily Fluid Restriction: no Last Modified Barium Swallow with Video (Video Swallowing Test): not done Treatments at the Time of Hospital Discharge: Respiratory Treatments: no Oxygen Therapy: is not on home oxygen therapy. Ventilator: - No ventilator support Rehab Therapies: Physical Therapy and Occupational Therapy Weight Bearing Status/Restrictions: No weight bearing restrictions Other Medical Equipment (for information only, NOT a DME order): cane, walker, and glucometer Other Treatments: Fpc assessment and monitoring. Medication education and monitoring per protocol. Patient's personal belongings (please select all that are sent with patient): Branedn RN SIGNATURE: Timur Aldana RNCLINICAL REHAB LIAISON/SOCIAL WORK SECTION Inpatient Status Date: 06/16/2023 Readmission Risk Assessment Score: Readmission Risk Risk of Unplanned Readmission: 12 Discharging to Facility/ Agency [facility] [address] [place] [address] [address] [facility] [id number] Fax Dialysis Facility (if applicable) Name: Address: Dialysis Schedule: Phone: Fax: Comic Writer/Leak Detector signature: PHYSICIAN SECTION Prognosis: Fair Condition at Discharge: Stable Rehab Potential (if transferring to Rehab): Fair Recommended Labs or Other Treatments After Discharge: Physician Certification: I certify the above information and transfer of Susie Boyce is necessary for the continuing treatment of the diagnosis listed and that he requires Home Care for greater 30 days. Update Admission H&P: No change in H&P PHYSICIAN SIGNATURE: The following attachments cannot be sent through Care Everywhere.midodrine (Montenegrin)Lightheadedness or Faintness (Montenegrin)Orthostatic Hypotension (Montenegrin)Seizure (Montenegrin)Caregiving: Making a Home Safe: General Info (Montenegrin)Diabetes Diet Meal Planning: General Info (Montenegrin)documented in this encounter [facility] 04-27-2023 Miscellaneous Notes Called patient to inform of benign biopsies from colonoscopy and EGD at [facility]. Patient can repeat colonoscopy in 3-5 years for CRC screening, depending upon health status. documented in this encounter [employer] 04-27-2023 Telephone encounter Note Called patient to inform of benign biopsies from colonoscopy and EGD at [facility]. Patient can repeat colonoscopy in 3-5 years for CRC screening, depending upon health status. [employer] Work Phone: 01-25-2023 Note [id number] Susie Boyce 1950 M Date Provider Department Center 01/25/2023 [facility] No family history on file Reason for Visit and Comments: Cognitive Difficulties [Other] [facility] 01-25-2023 Note OUTPATIENT RE[facility] NEUROPSYCHOLOGY [address] [facility] [address] FAX: [phone] NEUROPSYCHOLOGICAL EVALUATION DATES OF SERVICE: 01/25/2023 DIAGNOSIS: R41.3 Other amnesia DATE OF ONSET: Unknown DATE OF : 1950 AGE: 72 years REASON FOR REFERRAL: This is the initial neuropsychological evaluation of Mr. Susie Boyce, a 72-year-old, right-handed gentleman who was referred for this evaluation by Vale Evangelista MD ([facility]) to determine present neurocognitive functioning in the context of Parkinson's disease and concern for cognitive decline. Mr. Boyce was referred with other amnesia. HISTORY OF PRESENTING PROBLEM: The following information is gathered through a clinical interview with Mr. Boyce, who was accompanied to the evaluation by his Ms. Bettie Boyce. Mr. Boyce was believed to be a variable historian, and details of the history were confirmed with his and medical records as needed. Mr. Boyce states that he was referred because he was diagnosed with Alzheimer's disease a year ago, and that he has history of Parkinson's disease diagnosed several years ago. He states that his mother and grandmother also had dementia beginning in their mid-sixties. Mr. Boyce states that his remote memory is good but he has difficulty with recent information. His adds that she has noticed her 's memory has been gradually declining for the past few years. She says these memory problems are very frustrating for him and he is more irritable than he used to be. Review of medical records from [facility] include a neurology office visit with Dr. Evangelista on 12/13/2022, when Mr. Boyce was seen for follow-up on Parkinson's disease, cervical spondylosis, memory difficulties, and neuropathy. The note indicates that his Parkinson's disease is treated with Sinemet 4 times daily which he takes at 8 AM, 12 PM, 4 PM, and 8 PM, and memory problems are treated with donepezil at bedtime. The note also indicates he reported stable memory difficulties, and that a cognitive screening was normal (MMSE = 28/30). The note includes his report of intact ADLs and IADLs. The note also includes his 's report of worsening short-term memory problems. Dr. Evangelista's note also indicates that prior sleep evaluation showed mild obstructive sleep apnea but Mr. Boyce did not want to pursue CPAP therapy and oral appliance therapy was cost prohibitive. Records from [facility] include an Occupational Therapy Manager Building Rehabilitation Evaluation conducted on 10/26/2022 by Pat Wheeler, OTR/Renate, CDRS, CDI. The note indicates that Mr. Boyce had intact vision and visual processing, demonstrated mild reduction in general cognition including delayed auditory recall and attention on a screening measure (MoCA), had difficulty completing a task of executive function requiring multitasking with inability to self-correct, and demonstrated moderately impaired selective attention for visual information. Physical assessment indicated intact range of motion, sensation, strength, and coordination as needed to operate motor vehicle. He was recommended to continue driving but minimize distractions. Mr. Solorzano also recommended Mr. Boyce to remain physically, mentally, and socially active. Review of neuroimaging studies includes an MRI of the brain without contrast conducted on 02/16/2015 for evaluation of memory loss; results were not available for review but Dr. Evangelista's 12/13/22 note indicates no focal white matter lesions, and no intracranial hemorrhage, mass, or mass effect. MRI of the brain conducted on 09/07/2022 for evaluation of cognitive impairment demonstrated areas of T2 flair hyperintensity in the periventricular and subcortical white matter which are nonspecific and may represent chronic microvascular ischemic change as well as mild global parenchymal volume loss but was otherwise normal. CURRENT MEDICATIONS: From [facility], Mr. Boyce reports he is taking carbidopa-levodopa 4 times per day, metformin, insulin, Prozac, atorvastatin, lisinopril, vitamin B12, and recently started donepezil. [facility] records add ibuprofen. PAST MEDICAL HISTORY: Mr. Boyce reports history of Parkinson's disease and diabetes. [facility] records indicate additional history of cervical spondylosis, neuropathy, and mild sleep apnea. PAST SURGICAL HISTORY: Mr. Boyce reports bilateral knee replacements in 2017, tracheotomy during an allergic reaction to penicillin, and 2 hernia repairs. PSYCHIATRIC TREATMENT: Mr. Boyce reports no history of psychological or psychiatric treatment. He reports no history of psychiatric hospitalization, and no history of suicidal/homicidal ideation. SUBSTANCE USE: Mr. Boyce reports that he used to drink a cocktail each night, but alcohol use is rare now as it affects his blood sugar. He repo (more content not included)... [facility] 10-26-2022 Note Occupational Therapy Occupational Therapy Evaluation Manager Building Rehab Patient Name: Susie Boyce : 1950 Date: 10/26/2022 Total Visit Count: 1 Total Cumulative Minutes: 110 Start Time: 8:00 Stop Time: 9:50 General Subjective: Pt was referred for a functional community mobility evaluation with recent d/x Parkinsons and memory changes. Chart Reviewed: Yes Family/Caregiver Present: Yes Patient Active Problem List Diagnosis Cognitive deficits Parkinson's disease (CMS/HCC) Cervical spondylosis Functional Community Mobility Evaluation Diagnosis and Onset: Mr. 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 He was recently diagnosed with Parkinson's disease greater than 1 year ago and has a history of memory changes. He was referred to determine safety awareness, cognitive abilities, and reaction time regarding safe community mobility. Per medical notes, recent MMSE score 28/30. Past History: Parkinson's disease, memory changes, cervical spine spondylosis C6-C7, Diabetes. Medications: Symptomatic, Levemir, vitamin B12, lisinopril, Prozac. License Number: [id number]. State: [place]. Expiration Date: 2026. License Restrictions: B. [place]. Previous Manager Building Eval: No Vehicle Make and Model: 2019 [employer]. Prior difficulties with driving/Citations/Navigation: No accidents, citations, or navigational errors reported. Last time driven: 10/26/2022. Current means of community mobility: Self. Type of traffic driven: All. Reports daily driving, mostly surface streets. Golfs 3 times a week. Previous frequency with driving and reason: [employer] system: Resides with . 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 Necessity for eval: Medical condition recent diagnosis of Parkinson disease and memory changes. Determine safety awareness, cognitive abilities, and reaction time with safe community mobility. Denies History of : Seizure Spasms Drowsiness Education/Occupation: Retired [employer]. Goals with Driving: Remain independent with community mobility. Pain Pain Assessment Pain Assessment: No/denies pain Visual Oculomotor Skills Visual History: Mr. Boyce wears glasses. He follows up with an field specialist yearly. He reports no visual changes, denies diplopia or blurriness. Range of Motion: Right eye: Full. Left eye: Full. Both eyes: Full. Convergence: Normal. Saccades: Horizontal and vertical. Mild reduction in speed. Right Field: Direct fixation. Left Field: Direct fixation. Pursuits: Sustains fixation. Stereo Optical Manager Building Rehab Vision Test Peripheral Douglass Left Eye: 40 degrees nasal-85 degrees temporal intact. Right Eye: 40 degrees nasal-85 degrees temporal intact. Bilateral Simultaneous Stimulation: Intact at 70 degrees. Contrast Sensitivity: 6/9, within functional limits. Distant Visual Acuity: Assessed with correction. Left Eye: 20/30. Both Eyes: 20/30. Right Eye: 20/40. Near Visual Acuity: Within functional limits. Depth Perception: 3/3 road signs, within normal limits. Road Sign Recognition: 11/09. Unable to identify unmarked road signs. Color Recognition: 4/4. Comments: MVPT: Visual Processing Raw Score: 31/36. Within normal limits. Norm: 25-36. Processing Time: 5.47 seconds. Within normal limits. Norm: 4.5-7.1 seconds. Comments: -1 visual memory, -3 visual closure, -1 position in space. Cognition Cognition Arousal/Alertness: Appropriate responses to stimuli Orientation Level: Oriented X4 Following Commands: Follows one step commands without difficulty Communication: Intact Hearing: Intact Mohsen Cognitive Assessment: Evaluates orientation and general cognitive functioning. Norm equals 26 or more. Score: 23. Below Normal Limits Comments: 4/5 visual-spatial, 2/3 serial 7 subtraction, 1/2 language repetition, 0/1 language fluency, 2/5 delayed auditory recall. Contextual Memory Test: Evaluates visual memory skills immediate and delayed. Immediate Recall Score: 7. Below Normal Limits Delayed Recall Score: 7. Below Normal Limits Norm: 11 and 9 respectively. Suspect visual memory skills immediate and delayed, slight reduction. Woodruff Making Part B: Evaluates divided attention and mental flexibility. Completion time: 229 seconds. Comments: Multiple errors after #3, unable to self-correct. High average 0-57 seconds Average 58-87 seconds Borderline 88-123 seconds Mild Impairment 124-186 seconds Moderate Impairment 187-275 seconds Severe Impairment 287 + seconds Symbol Digit Modalities Test: Evaluates visual selective attention. Number correct in 90 seconds: 20. Norm: 33. Moderate impairment visual selective attention. Physical Skills Sensation: Upper Body: WFL: Lower Body: Reports neuropathy left foot. Range of Motion Right Left Neck AROM WNL AROM WNL Shoulder AROM WNL AROM WNL Elbow AR (more content not included)... [facility] 02-17-2022 Hospital course Narrative Images from the original note were not included. [] [facility] [address] P: F: [x] [facility] [address] P: F: [] [facility] [address] P: F: [] [facility] [address] [facility] P: F: [] [facility] [address] P: F: Physical Therapy Discharge Note Date: 02/17/2022 Patient: Susie Boyce : 1950 Physician: JIM Jaramillo Insurance: G20 (ICD-10-CM) - Parkinson's disease (HCC) Medical Diagnosis: [employer] Medicare (BMN) Rehab Codes: R26.89, M62.81, R29.3 Next 's appt.: 05/11/21 Date of symptom onset: 01/14/22 Visit# / total visits: 10/05; Progress note for Medicare patient due at visit 8 Cancels/No Shows: 0 Date of initial visit: 01/25/22 Date of final visit: 02/17/22 Subjective: Pain: [] Yes [x] No Location: N/A Pain Rating: (0-10 scale) 0/10 Pain altered Tx: [x] No [] Yes Action: Comments: Pt notes he just arrived from the dentist, doing well. Leaves for [place] next week. Objective: Test Measurements: see goal assessment below Function: see goal assessment below Assessment: [x] Progressing toward goals. STG assessment - pt has made progress towards or met all goals with improved stability, gait mechanics and speed, and no back pain/pt subjective reports of overall improvement. Appropriate for D/C at this time, thorough review of HEP to further assist with gastroc flexibility, heel strike and step length on LLE with gait, and stair climbing education. Pt verbalizes understanding to all education; notes he would like to seek out further therapy in [place] while on vacation and plans to continue with regular exercise/HEP. [] No change. [] Other: [x] Discharge STG: (to be met in 8 treatments) - Assessed on 02/17/22 by Kingston Quiles, PT: ? Pain: No more than 4/10 max pain in low back with all exercise to indicate improved tolerance to increased physical activity/exercise - MET, no pain since therapy ? ROM: At least 10deg DF PROM bilat in order to improve ankle strategy usage for balance, improve ankle mechanics within gait cycle ? Balance: Pt able to step over a 6 object without slowing speed or instability noted - MET Pt able to complete a 90deg turn when standing out of a chair with consistently no instability or deficit - MET Strength: At least 4/5 B hip ext/abd for improved pelvic stability with single limb stance tasks including turns, gait, stair climbing - MET, 4+/5 ea bilat At least 4/5 L hand grasp to allow improved carrying, lifting, swinging golf club - NOT MET, 4-/5 L ? Function: Pt to report ability to engage in regular physical activity with only min Vcs by therapist for appropriate frequency, intensity as recommended for Parkinson's disease population - Making progress, walking 2x/wk from 30 min Pt able to ambulate at .93m/s without device and with increasing heel strike, step length, and upright posture throughout gait cycle with at least 25% incidence of L arm swing without cues from therapist - MET, 1.02m/s self selected; 1.42m/s fast Pt able to ascend/descend flight of steps reciprocally with only min unilat UE assist and no speed/stability deficits noted - Made progress, some mild speed decrease ascent/descent and cues to get full foot on step vs just forefoot for improved stability Pt able to ambulate on unlevel surfaces without instability - MET Patient to be independent with home exercise program as demonstrated by performance with correct form without cues. - MET Demonstrate Knowledge of fall prevention- Issued 02/03 Treatment to Date: [x] Therapeutic Exercise [] Modalities: [x] Therapeutic Activity [] Ultrasound [] Electrical Stimulation [x] Gait Training [] Massage [] Lumbar/Cervical Traction [x] Neuromuscular Re-education [] Cold/hotpack [] Iontophoresis: 4 mg/mL [x] Instruction in Home Exercise Program Dexamethasone Sodium [] Manual Therapy Phosphate 40-80 mAmin [] Aquatic Therapy [] Vasocompression/ [] Other: Game Ready Discharge Status: [] Pt recovered from conditions. Treatment goals were met. [] Pt received maximum benefit. No further therapy indicated at this time. [x] Pt to continue exercise/home instructions independently. [] Therapy interrupted due to: [] Pt has 2 or more no shows/cancels, is discontinued per our policy. [x] Pt has completed prescribed number of treatment sessions. [x] Other: Leaving for [place] for several months. If you have any questions or concerns, please don't hesitate to call. Thank you for your referral. documented in this encounter Tailored Phone: Evaluation note Diagnosis Tremors of nervous system Abnormal involuntary movements Type 2 diabetes mellitus without complication, with long-term current use of insulin (HCC) Other hyperlipidemia documented in this encounter Tailored Phone: evaluation note* Diagnosis Tremors of nervous system Abnormal involuntary movements documented in this encounter Tailored Phone: evaluation note* Diagnosis Tremors of nervous system Abnormal involuntary movements Cervical arthritis Cervical spondylosis without myelopathy Gait abnormality Abnormality of gait documented in this encounter Tailored Phone: evalsoyxsp note* Diagnosis B12 deficiency Other B-complex deficiencies documented in this encounter Tailored Phone: evalrxipep note* Diagnosis Cognitive impairment Unspecified persistent mental disorders due to conditions classified elsewhere documented in this encounter MagazinoEvaluation note* Diagnosis Near syncope- Primary Syncope and collapse Near syncope Syncope and collapse Pre-syncope Syncope and collapse Parkinson's disease without dyskinesia or fluctuating manifestations (HCC) documented in this encounter MagazinoInstructionsNot on filedocumented in this encounter [facility] Advance Directives No Advanced Directives Records FoundHealthcare Agents on File Name Relationship Healthcare Agent Relationship Communication Bettie Boyce Spouse Primary Decision Maker Healthcare Agents on File Name Relationship Healthcare Agent Relationship Communication Bettiejunie Boyce Spouse Primary Decision Maker Healthcare Agents on File Name Relationship Healthcare Agent Relationship Communication Bettiejunie Boyce Spouse Primary Decision Maker Healthcare Agents on File Name Relationship Healthcare Agent Relationship Communication Bettiejunie Boyce Spouse Primary Decision Maker Healthcare Agents on File Name Relationship Healthcare Agent Relationship Communication Bettie Boyce Spouse Primary Decision Maker Healthcare Agents on File Name Relationship Healthcare Agent Relationship Communication Bettie Boyce Spouse Primary Decision Maker Healthcare Agents on File Name Relationship Healthcare Agent Relationship Communication Bettie Boyce Spouse Primary Decision Maker Healthcare Agents on File Name Relationship Healthcare Agent Relationship Communication Bettie Boyce Spouse Primary Decision Maker Documents on File Type Date Recorded Patient County Coroner Expl anation Durable Power of Hammer Heater 04/16/2023 6:37 PM [facility] DNRCC 024 Latest Code Status on File Code Status Date Activated Date Inactivated Comments DNR Comfort Care Arrest (DNR-CCA) [place] 04/16/2023 6:43 PM 04/20/2023 5:28 PM Latest Code Status on File Code Status Date Activated Date Inactivated Comments DNR-CCA 06/16/2023 1:53 PM Code Status History Code Status Date Activated Date Inactivated Comments DNR-CCA 06/16/2023 1:53 PM 06/16/2023 1:53 PM Healthcare Agents on File Name Relationship Healthcare Agent Relationship Communication Bettie Boyce Spouse Primary Decision Maker Latest Code Status on File Code Status Date Activated Date Inactivated Comments DNR-CCA 06/16/2023 1:53 PM 06/17/2023 8:19 PM Code Status History Code Status Date Activated Date Inactivated Comments DNR-CCA 06/16/2023 1:53 PM 06/16/2023 1:53 PM Healthcare Agents on File Name Relationship Healthcare Agent Relationship Communication Bettie Boyce Spouse Primary Decision Maker Reason for Referral Specialty Diagnoses / Procedures Referred By Contac t Referred To Contact Radiology Diagnoses Tremors of nervous system Cervical arthritis Gait abnormality R25.1 (ICD-10-CM) - Tremors of nervous system Procedures MRI CERVICAL SPINE WO CONTRAST OR MRI, CERV SPINE [id number] - [place] MRI, [place] [address] [address] [place] [address] Referral ID Status Reason Start Date Expiration Date Visits Re quested Visits Authorized [id number] Closed 12/21/2021 12/05/2022 1 0 Specialty Diagnoses / Procedures Referred By Contac t Referred To Contact Radiology Diagnoses Cognitive impairment Procedures MRI BRAIN W WO CONTRAST Vale Evangelista MD [address] [place] [address] Referral ID Status Reason Start Date Expiration Date Visits Re quested Visits Authorized [id number] Closed 09/03/2022 08/19/2023 1 1 Summary Purpose Family History No Family History Records FoundNo Family History Records FoundNo Family History Records FoundNo Family History Records FoundNo Family History Records Found Additional Source Comments Care Teams (unrecognized sec tion and content) Tool Liaison Relationship Specialty [place] [address] [place] [address] [place] [address] PCP - General Family Medicine 02/13/15 Tool Liaison Relationship Specialty [place] [address] [place] [address] PCP - General Family Medicine 02/13/15 Tool Liaison Relationship Specialty [place] [address] [place] [address] PCP - General Family Medicine 02/13/15 Tool Liaison Relationship Specialty [place] [address] [place], [place] [id number] PCP - General Family Medicine 02/13/15 Tool Liaison Relationship Specialty [place] [address] [place] [address] PCP - General Family Medicine 02/13/15 Tool Liaison Relationship Specialty [place] [address] [place] [address] PCP - General Family Medicine 02/13/15 Tool Liaison Relationship Specialty [place] [address] [place] [address] PCP - General Family Medicine 02/13/15 Tool Liaison Relationship Specialty Start [place] [address] [place] [address] PCP - General Family Medicine 02/13/15 Tool Liaison Relationship Specialty Start [place] [address] [place] [address] PCP - General 01/07/14 Tool Liaison Relationship Specialty [place] [address] [place] [address] PCP - General Family Medicine 02/13/15 Tool Liaison Relationship Specialty [place] [address] [place] [address] PCP - General Family Medicine 02/13/15 Reason for Visit (unrecogniz ed section and content) Specialty Diagnoses / Procedures Referred By Contac t Referred To Contact Radiology Diagnoses Tremors of nervous system Cervical arthritis Gait abnormality R25.1 (ICD-10-CM) - Tremors of nervous system Procedures MRI CERVICAL SPINE WO CONTRAST OR MRI, CERV SPINE [id number] - OR MRI, [place] [address] [address] [place] [address] Referral ID Status Reason Start Date Expiration Date Visits Re quested Visits Authorized [id number] Closed 12/21/2021 12/05/2022 1 0 Specialty Diagnoses / Procedures Referred By Contac t Referred To Contact Physical Therapist / Physical Therapy Diagnoses Parkinson's disease (HCC) Maira Morales, AIR BREAKER OPERATOR - PAPER CORE MACHINE OPERATOR [address] [address] [facility] [address] [facility] [address] [address], [address] [address] Referral ID Status Reason Start Date Expiration Date Visits Requested Visits Authorized [id number] Authorized Specialty Services Required 01/14/2023 1 99 Specialty Diagnoses / Procedures Referred By Contac t Referred To Contact Radiology Diagnoses Cognitive impairment Procedures MRI BRAIN W WO CONTRAST Vale Evangelista MD [address] [address] Referral ID Status Reason Start Date Expiration Date Visits Re quested Visits Authorized [id number] Closed 09/03/2022 08/19/2023 1 1 Reason Comments Loss of Consciousness Specialty Diagnoses / Procedures Referred By Contac t Referred To Contact Diagnoses [place] [address] [place] [address] [address] [facility] [address] [place] [address] Referral ID Status Reason Start Date Expiration Date Visits Re quested Visits Authorized [id number] 1 1 Specialty Diagnoses / Procedures Referred By Contac t Referred To Contact Diagnoses Pre-syncope Near syncope Marta Lozano MD [address] [address] [facility] [address] [place] [address] (unrecognized sect ion and content) No Status Records FoundNo Status Records FoundNo Status Records FoundNo Status Records FoundNo Status Records Found INFORMATION SOURCE (unrecogn ized section and content) DATE CREATED AUTHOR 10/10/2022 [facility] DATE CREATED AUTHOR AUTHOR'S ORGANIZ ATION 01/31/2023 [facility] DATE CREATED AUTHOR AUTHOR'S ORGANIZ ATION 04/27/2023 [facility] DATE CREATED AUTHOR AUTHOR'S ORGANIZ ATION 06/25/2023 [facility] DATE CREATED AUTHOR AUTHOR'S ORGANIZ ATION 08/05/2023 [facility] Ordered Prescriptions (unrec ognized section and content) Prescription Sig Dispensed Refills Start Date End Da te pyRIDostigmine (MESTINON) 60 MG tablet Take 1 tablet by mouth daily 60 tablet 3 06/18/2023 pyRIDostigmine (MESTINON) 60 MG tablet Take 0.5 tablets by mouth at bedtime 60 tablet 3 06/17/2023 carbidopa-levodopa (SINEMET) 25-250 MG per tabletIndications:Darrel on's disease without dyskinesia or fluctuating manifestations (HCC) Take 1 tablet by mouth 4 times daily During waking hours: 8am; 12 NOON: 1600 & 2000 360 tablet 1 06/17/2023 12/14/2023 midodrine (PROAMATINE) 2.5 MG tablet Take 1 tablet by mouth 3 times daily (with meals) 90 tablet 3 06/17/2023 Scheduled Active and Recently Administ ered Medications (unrecognized section and content) Medication Order 06/15/2023 06/16/2023 06/17/2023 atorvastatin (LIPITOR) tablet 40 mg 40 mg, Oral, EVERY MORNING, First dose on Tue06/17/23 at 0900, Until Discontinued 2100 (Due - Provider : Pilar Aldana RN) carbidopa-levodopa (SINEMET) 25-250 MG per tablet 1 tablet 1 tablet, Oral, 4 TIMES DAILY, First dose on Tue06/16/23 at 1700, Until Discontinued 161 (Given - Provider: Pilar Aldana RN)1958 (Given - Provider: Michael Calvo RN) 1005 (Given - Provider: Donnell Douglass)1340 (Not Given - Provider: Pilar Aldana RN - Reason: Other - Comment: AM dose was given late due to NPO)1656 (Given - Provider: Pilar Aldana RN)2099 (Due) donepezil (ARICEPT) tablet 15 mg 15 mg, Oral, NIGHTLY, First dose on Tue06/16/23 at 2100, Until Discontinued 1958 (Given - Provider: Michael Calvo RN) 2099 (Due) enoxaparin (LOVENOX) injection 40 mg 40 mg, SubCUTAneous, DAILY, First dose on Tue06/16/23 at 1500, Until Discontinued, Indication of Use: Prophylaxis-DVT/PE, Administer by deep subCUTAneous injection with pt lying down. Alternate injection sites on abdominal wall. Do not rub site after injection. Check with provider prior to any invasive procedure. 161 (Given - Provider: Pilar Aldana RN) 0953 (Given - Provider: Donnell Douglass) FLUoxetine (PROZAC) capsule 20 mg 20 mg, Oral, DAILY, First dose on Tue06/16/23 at 1500, Until Discontinued 142 (Not Given - Provider: Pilar Aldana RN - Reason: Patient took at home) 0953 (Given - Provider: Donnell Douglass) FLUoxetine (PROZAC) capsule 40 mg 40 mg, Oral, DAILY, First dose on Tue06/16/23 at 1500, Until Discontinued 142 (Not Given - Provider: Pilar Aldana RN - Reason: Patient took at home) 0956 (Given - Provider: Donnell Douglass) insulin glargine (LANTUS) injection vial 15 Units 15 Units, SubCUTAneous, DAILY, First dose on Tue06/17/23 at 0900, Until Discontinued 0951 (Given - Provid er: Donnell Douglass) midodrine (PROAMATINE) tablet 2.5 mg 2.5 mg, Oral, 3 TIMES DAILY WITH MEALS, First dose on Tue06/16/23 at 1700, Until Discontinued, Do not give after 1800 or within 4 hrs of bedtime. 1615 (Given - Provider: Pilar Aldana RN) 0953 (Given - Provider: Donnell Douglass)1115 (Not Given - Provider: Pilar Aldana RN - Reason: Other - Comment: recently given)1656 (Given - Provider: Pilar Aldana RN) pyRIDostigmine (MESTINON) tablet 30 mg 30 mg, Oral, Nightly, First dose on Tue06/16/23 at 2100, Until Discontinued 1958 (Given - Provider: Michael Calvo RN) 2099 (Due) pyRIDostigmine (MESTINON) tablet 60 mg 60 mg, Oral, DAILY, First dose on Tue06/17/23 at 0900, Until Discontinued 954 (Given - Provid er: Donnell Douglass) sodium chloride 0.9 % bolus 1,000 mL (COMPLETED) 1,000 mL (12 mL/kg), IntraVENous, at 2,000 mL/hr, Administer over 0.5 Hours, ONCE, On Tue06/16/23 at 1130, For 1 dose 1153 (New Bag - Provider: Sandi Razo RN)1223 (Stopped - Provider: Pilar Aldana RN) sodium chloride flush 0.9 % injection 5-40 mL 5-40 mL, IntraVENous, EVERY 12 HOURS SCHEDULED (2 times per day), First dose on Tue06/16/23 at 2100, Until Discontinued, For Line Patency: Peripheral IV = 5 mL; Midline or Central Line = 10 mL/lumen. If following IV push medication, administer flush at same rate as the IV push. Flush volume is determined by type of infusion therapy being given. For non-viscous solutions use: Peripheral IV = 5 mL Midline or Central Line = 10 mL/lumen For viscous solutions (i.e. blood components, parenteral nutrition, contrast media, or after obtaining blood sample) use: Peripheral IV = 10 mL Midline or Central Line = 20 mL/lumen 1999 (Given - Provider: Michael Calvo RN) 1016 (Given - Provider: Pilar Aldana RN)2100 (Due) PRN Medication Order 06/15/2023 06/16/2023 06/17/2023 0.9 % sodium chloride infusion IntraVENous, at 5-250 mL/hr, PRN, if patient receiving piggyback infusions and maintenance fluids are not ordered OR KVO fluids to protect IV site / prevent frequent line interruptions/ long duration, Starting on Luna 06/16/23 at 1352, For piggyback infusion, administer at same rate as piggyback for a total of 25 mL. Enter 25 mL into dose field and piggyback rate into rate field of order. If piggyback is infusing at a rate less than 100 mL/hr, enter 25 mL into dose field and 100 mL/hr into rate field of order. For KVO fluids, enter rate of 20 mL/hr or less into rate field of order. acetaminophen (TYLENOL) suppository 650 mg(Linked Group 1) 650 mg, Rectal, EVERY 6 HOURS PRN, Starting on Luna 06/16/23 at 1352, Until Discontinued, Pain Mild (1-3), Fever, For temp greater than 100.4 F (38 C), Administer if oral route cannot be used. acetaminophen (TYLENOL) tablet 650 mg(Linked Group 1) 650 mg, Oral, EVERY 6 HOURS PRN, Starting on Luna 06/16/23 at 1352, Until Discontinued, Pain Mild (1-3), Fever, For temp greater than 100.4 F (38 C), Maximum dose of acetaminophen is 4000 mg from all sources in 24 hours. dextrose 10 % infusion IntraVENous, at 100 mL/hr, CONTINUOUS PRN, if blood glucose remains LESS THAN 70 mg/dL after 2 dextrose 10% intravenous boluses or administration of glucagon, Starting on Luna 06/16/23 at 1352, If blood glucose fails to stabilize after 2 dextrose 10% intravenous boluses or glucagon administration, start dextrose 10% infusion at 100 mL/hour and repeat blood glucose at 30 and 60 minutes. If blood glucose is GREATER THAN 70 mg/dL after 60 minutes, discontinue dextrose 10% infusion. dextrose bolus 10% 125 mL(Linked Group 2) 125 mL, IntraVENous, at 937.5 mL/hr, Administer over 8 Minutes, PRN, Other, Blood glucose 40 - 69 mg/dL and patient NOT ALERT or NPO, Starting on Luna 06/16/23 at 1352, Repeat blood glucose in 15 minutes. If blood glucose remains LESS THAN 70 mg/dL, repeat treatment and recheck blood glucose in 15 minutes x 2. If using glycemic management system, dose as instructed per system. If blood glucose remains LESS THAN 70 mg/dL after 2 intravenous boluses start dextrose 10% at 100 mL/hour and notify provider. dextrose bolus 10% 250 mL(Linked Group 2) 250 mL, IntraVENous, at 937.5 mL/hr, Administer over 16 Minutes, PRN, Other, Blood glucose LESS THAN 40 mg/dL and patient NOT ALERT or NPO, Starting on Luna 06/16/23 at 1352, Repeat blood glucose in 15 minutes. If blood glucose remains LESS THAN 70 mg/dL, repeat treatment and recheck blood glucose in 15 minutes x 2. If using glycemic management system, dose as instructed per system. If blood glucose remains LESS THAN 70 mg/dL after 2 intravenous boluses start dextrose 10% at 100 mL/hour and notify provider. glucagon injection 1 mg 1 mg, SubCUTAneous, PRN, Starting on Luna 06/16/23 at 1352, Until Discontinued, Low blood sugar, Blood glucose LESS THAN 70 mg/dL and patient NOT ALERT or NPO and does not have IV access., After administration, attempt intravenous access and start dextrose 10% at 100 mL/hr. Repeat blood glucose in 15 minutes x 2 and notify provider. glucose chewable tablet 16 g 16 g (4 tablet), Oral, PRN, Starting on Luna 06/16/23 at 1352, Until Discontinued, Low blood sugar, If blood glucose is LESS THAN 70 mg/dL and patient is alert and tolerating oral. Give 4 tablets (16g) Repeat blood glucose in 15 minutes. If blood glucose is LESS THAN 70 mg/dL, repeat treatment and recheck blood glucose in 15 minutes x 2. If blood glucose remains LESS THAN 70 mg/dL, notify provider. magnesium sulfate 2000 mg in water 50 mL IVPB 2,000 mg, IntraVENous, at 25 mL/hr, Administer over 2 Hours, PRN, Other, Magnesium Replacement, Starting on Luna 06/16/23 at 1352, Mag Lab Replacement Action 1.4-1.6 mg/dL 2,000 mg Total Dose Given as 1,000 mg IVPB x 2 doses or 2,000 mg IVPB x 1 dose 1.0-1.3 mg/dL 4,000 mg Total Dose Given as 1,000 mg IVPB x 4 doses or 2,000 mg IVPB x 2 doses Less than 1.0 mg/dL CALL PHYSICIAN and give 4,000 mg Total Dose Given as 1,000 mg IVPB x 4 doses or 2,000 mg IVPB x 2 doses Infuse at 1,000 mg/hr Repeat Mag level 1 hour after final administration Protocol not for use in Patients with CrCl less than 30ml/min ondansetron (ZOFRAN) injection 4 mg(Linked Group 3) 4 mg, IntraVENous, EVERY 6 HOURS PRN, Starting on Luna 06/16/23 at 1352, Until Discontinued, Nausea, Vomiting, Administer if oral route cannot be used. ondansetron (ZOFRAN-ODT) disintegrating tablet 4 mg(Linked Group 3) 4 mg, Oral, EVERY 8 HOURS PRN, Starting on Luna 06/16/23 at 1352, Until Discontinued, Nausea, Vomiting polyethylene glycol (GLYCOLAX) packet 17 g 17 g, Oral, DAILY PRN, Starting on Luna 06/16/23 at 1352, Until Discontinued, Constipation, First line therapy for constipation potassium bicarb-citric acid (EFFER-K) effervescent tablet 40 mEq(Linked Group 4) 40 mEq, Oral, PRN, Starting on Luna 06/16/23 at 1352, Until Discontinued, Per Potassium Replacement Protocol, Administer as alternative if patient unable to tolerate oral tablet. K Lab Replacement Action 3.1 to 3.5 40 mEq ORAL x 1 Under 3.1 Refer to IV replacement protocol Recheck K level in AM. Protocol not for use in patients with CrCl less than 30 mL/min. Do not chew or crush. Dissolve flavored tablets completely in 3 to 4 ounces of cold water; unflavored tablets may be dissolved in 3 to 4 ounces of cold juice. Patient to sip slowly over a 5 to 10 minute period. May further dilute if GI adverse effects occur. potassium chloride (KLOR-CON M) extended release tablet 40 mEq(Linked Group 4) 40 mEq, Oral, PRN, Starting on Luna 24 at 1352, Until Discontinued, Potassium Replacement, May give alternative linked oral order (ordered as effervescent, packet, or liquid solution) if patient unable to tolerate tablet. K Lab Replacement Action 3.1 to 3.5 40 mEq ORAL x 1 Under 3.1 Refer to IV replacement protocol Recheck K level in AM. Protocol not for use in patients with CrCl less than 30 mL/min. Do not crush, chew, or suck on tablet. Tablet may also be broken in half and each half swallowed separately. potassium chloride 10 mEq/100 mL IVPB (Peripheral Line)(Linked Group 4) 10 mEq, IntraVENous, PRN, Starting on Tue06/16/23 at 1352, Until Discontinued, at 100 mL/hr, Potassium Replacement, K Lab Replacement Action 2.7 to 3.0 10 mEq IVPB x 6 doses (60 mEq Total) Under 2.7 CALL PROVIDER and administer 10 mEq IVPB x 6 doses (60 mEq Total) Infuse at 10 mEq/hr. Repeat Potassium lab 1 hour after final administration. Protocol not for use in patients with CrCl less than 30 mL/min. sodium chloride flush 0.9 % injection 10 mL 10 mL, IntraVENous, PRN, Starting on Tue06/17/23 at 0705, Until Discontinued, Line Care, Other, flushing radioactive doses 1256 (Given - Provid er: Nelia Yu) sodium chloride flush 0.9 % injection 5-40 mL 5-40 mL, IntraVENous, PRN, Starting on Tue06/16/23 at 1352, Until Discontinued, Line Care, After every IV line use, For Line Patency: Peripheral IV = 5 mL; Midline or Central Line = 10 mL/lumen. If following IV push medication, administer flush at same rate as the IV push. Flush volume is determined by type of infusion therapy being given. For non-viscous solutions use: Peripheral IV = 5 mL Midline or Central Line = 10 mL/lumen For viscous solutions (i.e. blood components, parenteral nutrition, contrast media, or after obtaining blood sample) use: Peripheral IV = 10 mL Midline or Central Line = 20 mL/lumen technetium sestamibi (CARDIOLITE) injection 15 millicurie (COMPLETED) 15 millicurie, IntraVENous, IMG ONCE PRN, 1 dose, Starting on Tue06/17/23 at 0705, Until Discontinued, Other 0842 (Given - Provid er: Mason Rodrigez) technetium sestamibi (CARDIOLITE) injection 35 millicurie (COMPLETED) 35 millicurie, IntraVENous, IMG ONCE PRN, 1 dose, Starting on Tue06/17/23 at 0705, Until Discontinued, Other 1256 (Given - Provid er: Nelia Yu) Linked Groups Order Group 1: acetaminophen (TYLENOL) tablet 650 mgJump to med 650 mg, Oral, EVERY 6 HOURS PRN, Starting on Luna 06/16/23 at 1352, Until Discontinued, Pain Mild (1-3), Fever, For temp greater than 100.4 F (38 C)
Maximum dose of acetaminophen is 4000 mg from all sources in 24 hours.
Or acetaminophen (TYLENOL) suppository 650 mgJump to med 650 mg, Rectal, EVERY 6 HOURS PRN, Starting on Luna 06/16/23 at 1352, Until Discontinued, Pain Mild (1-3), Fever, For temp greater than 100.4 F (38 C)
Administer if oral route cannot be used.
Group 2: dextrose bolus 10% 125 mLJump to med 125 mL, IntraVENous, at 937.5 mL/hr, Administer over 8 Minutes, PRN, Other, Blood glucose 40 - 69 mg/dL and patient NOT ALERT or NPO, Starting on Luna 06/16/23 at 1352
Repeat blood glucose in 15 minutes. If blood glucose remains LESS THAN 70 mg/dL, repeat treatment and recheck blood glucose in 15 minutes x 2. If using glycemic management system, dose as instructed per system. If blood glucose remains LESS THAN 70 mg/dL after 2 intravenous boluses start dextrose 10% at 100 mL/hour and notify provider.
Or dextrose bolus 10% 250 mLJump to med 250 mL, IntraVENous, at 937.5 mL/hr, Administer over 16 Minutes, PRN, Other, Blood glucose LESS THAN 40 mg/dL and patient NOT ALERT or NPO, Starting on Luna 06/16/23 at 1352
Repeat blood glucose in 15 minutes. If blood glucose remains LESS THAN 70 mg/dL, repeat treatment and recheck blood glucose in 15 minutes x 2. If using glycemic management system, dose as instructed per system. If blood glucose remains LESS THAN 70 mg/dL after 2 intravenous boluses start dextrose 10% at 100 mL/hour and notify provider.
Group 3: ondansetron (ZOFRAN-ODT) disintegrating tablet 4 mgJump to med 4 mg, Oral, EVERY 8 HOURS PRN, Starting on Luna 06/16/23 at 1352, Until Discontinued, Nausea, Vomiting Or ondansetron (ZOFRAN) injection 4 mgJump to med 4 mg, IntraVENous, EVERY 6 HOURS PRN, Starting on Luna 06/16/23 at 1352, Until Discontinued, Nausea, Vomiting
Administer if oral route cannot be used.
Group 4: potassium chloride (KLOR-CON M) extended release tablet 40 mEqJump to med 40 mEq, Oral, PRN, Starting on Luna 06/16/23 at 1352, Until Discontinued, Potassium Replacement
May give alternative linked oral order (ordered as effervescent, packet, or liquid solution) if patient unable to tolerate tablet. K Lab Repla cemen t Action 3.1 to 3.5 40 mEq ORAL x 1 Under 3.1 Refer to IV replacement protocol Recheck K level in AM. Protocol not for use in patients with CrCl less than 30 mL/min. Do not crush, chew, or suck on tablet. Tablet may also be broken in half and each half swallowed separately.
Or potassium bicarb-citric acid (EFFER-K) effervescent tablet 40 mEqJump to med 40 mEq, Oral, PRN, Starting on Luna 06/16/23 at 1352, Until Discontinued, Per Potassium Replacement Protocol
Administer as alternative if patient unable to tolerate oral tablet. K Lab Repla cemen t Action 3.1 to 3.5 40 mEq ORAL x 1 Under 3.1 Refer to IV replacement protocol Recheck K level in AM. Protocol not for use in patients with CrCl less than 30 mL/min. Do not chew or crush. Dissolve flavored tablets completely in 3 to 4 ounces of cold water; unflavored tablets may be dissolved in 3 to 4 ounces of cold juice. Patient to sip slowly over a 5 to 10 minute period. May further dilute if GI adverse effects occur.
Or potassium chloride 10 mEq/100 mL IVPB (Peripheral Line)Jump to med 10 mEq, IntraVENous, PRN, Starting on Luna 06/16/23 at 1352, Until Discontinued, at 100 mL/hr, Potassium Replacement
K Lab Replacement Action 2.7 to 3.0 10 mEq IVPB x 6 doses (60 mEq Total) Under 2.7 CALL PROVIDER and administer 10 mEq IVPB x 6 doses (60 mEq Total) Infuse at 10 mEq/hr. Repeat Potassium lab 1 hour after final administration. Protocol not for use in patients with CrCl less than 30 mL/min.
FOR RECORDS PERTAINING TO PATIENTS WHO ARE OR HAVE BEEN ENROLLED IN A CHEMICAL DEPENDENCY/SUBSTANCEABUSE PROGRAM, SOME INFORMATION MAY BE OMITTED. This clinical summary was aggregated from multiple sources. Caution should be exercised in using it in the provision of clinical care. This summary normalizes information from multiple sources, and as a consequence, information in this document may materially change the coding, format and clinical context of patient data. In addition, data may be omitted in some cases. CLINICAL DECISIONS SHOULD BE BASED ON THE PRIMARY CLINICAL RECORDS. [facility]. provides no warranty or guarantee of the accuracy or completeness of information in this document.
--- NOTE | 2023-12-11 08:46 | ED.GENADUL1 ---
HPI HPI - General Adult General Chief complaint: Fall Stated complaint: FALL, HEAD INJURY Time Seen by Provider: 12/11/23 08:41 History of Present Illness HPI narrative: 73-year-old male with history of Parkinson's coming to the ER after he was in his detention facility when he fell down, patient mentioned that he did not get dizzy but he just had multiple falls before due to his Parkinson disease and he denies any loss of consciousness. He fell forward stopping himself by his hand he denies any new complaint other than the fact that he hit his head I have a small scalp hematoma to the left side of the head in addition to a bleeding in his nose that stopped before arrival. The patient does not take any anticoagulants he denies any loss of conscious he also denies any pain or headache moment except for the pain at the area where the trauma happened Related Data Home Medications ?Medication ?Instructions ?Recorded ?Confirmed atorvastatin 40 mg tablet 40 mg PO DAILY 10/16/23 12/11/23 carbidopa ER 25 mg-levodopa 100 mg 1 tab PO QID 10/16/23 12/11/23 tablet,extended release cyanocobalamin (vitamin B-12) 100 100 mcg PO DAILY 10/16/23 12/11/23 mcg tablet donepezil 23 mg tablet 23 mg PO DAILY 10/16/23 12/11/23 fluoxetine 60 mg tablet 60 mg PO DAILY 10/16/23 12/11/23 insulin detemir U-100 100 unit/mL 20 unit subcut QPM 10/16/23 12/11/23 (3 mL) subcutaneous pen (Levemir FlexPen) insulin lispro 100 unit/mL 1 sliding scale dose subcut 10/16/23 12/11/23 subcutaneous cartridge (Humalog USEASDIRECTD U-100 Insulin) melatonin 3 mg capsule 3 mg PO QPM 10/16/23 12/11/23 pantoprazole 40 mg tablet,delayed 40 mg PO QPM 10/16/23 12/11/23 release pyridostigmine bromide 30 mg tablet 30 mg PO BID 10/16/23 12/11/23 sitagliptin phosphate 100 mg 100 mg PO BID 10/16/23 12/11/23 tablet (Januvia) Allergies Allergy/AdvReac Type Severity Reaction Status Date / Time Penicillins Allergy Severe Anaphylaxis Verified 10/16/23 19:12 Opioid HPI Opioid Management Most Recent Opioid Data: No Data to Display Review of Systems ROS Status of ROS 10 or more systems reviewed and unremarkable except as noted in history and below [facility] Medical History (Updated 12/11/23 @ 09:08 by Daniela Haji MD) Osteoarthritis ?M19.90 - Unspecified osteoarthritis, unspecified site (ICD-10) HTN (hypertension) ?I10 - Essential (primary) hypertension (ICD-10) Homicidal ideations ?R45.850 - Homicidal ideations (ICD-10) Diabetes ?E11.9 - Type 2 diabetes mellitus without complications (ICD-10) Parkinson disease ?G20.A1 - Parkinson's disease without dyskinesia, without mention of fluctuations (ICD-10) Hyperlipemia ?E78.5 - Hyperlipidemia, unspecified (ICD-10) Anxiety ?F41.9 - Anxiety disorder, unspecified (ICD-10) Alzheimer disease ?G30.9 - Alzheimer's disease, unspecified (ICD-10) ?F02.80 - Dementia in other diseases classified elsewhere, unspecified severity, without behavioral disturbance, psychotic disturbance, mood disturbance, and anxiety (ICD-10) Agitation ?R45.1 - Restlessness and agitation (ICD-10) Depression ?F32.A - Depression, unspecified (ICD-10) Dementia ?F03.90 - Unspecified dementia, unspecified severity, without behavioral disturbance, psychotic disturbance, mood disturbance, and anxiety (ICD-10) Exam Narrative Exam Narrative: Nurses notes and vital signs reviewed and patient is not hypoxic. General: Well-appearing and in no apparent distress. Skin: Warm, dry, no pallor noted. No rash. Head: Normocephalic, small scalp hematoma almost 2 x 3 cm oval in shape with a small laceration on top of it almost 0.5 cm linear and it is well-approximated and the bleeding is controlled Neck: Supple, non-tender. Eye: Pupils are equal, round and EOMI. No scleral icterus. Ears, Nose, Mouth, the patient does not have any active bleeding he have old blood clot in the posterior aspect of both nostrils and upon examination of the pharynx the patient does not have any active bleeding or any trauma to the teeth or the lips Cardiovascular: Regular Rate and Rhythm without murmur, gallop or rub. Respiratory: No accessory muscle use or respiratory distress. Lungs are clear to auscultation, no wheezing, rales or rhonchi Chest Wall: no tenderness Back: No midline thoracic or lumbar vertebral tenderness. No CVA tenderness Musculoskeletal: normal ROM, no calf or popliteal tenderness, no lower extremity edema/swelling GI: Abdomen is soft, non-distended. Normal bowel sounds. No masses appreciated. No tenderness to palpation. No rebound, guarding, or rigidity noted. Neurological: A&O x4. No cranial nerve dysfunction observed. Constitutional Vital Signs, click to edit/add: Last Vital Signs Temp 97.7 F 12/11/23 08:46 Pulse 53 L 12/11/23 10:50 Resp 20 12/11/23 10:50 BP 126/62 12/11/23 10:45 Pulse Ox 100 12/11/23 08:46 O2 Del Method Room Air 12/11/23 08:46 Course Vital Signs Vital signs: Vital Signs Blood Pressure 126/64 12/11/23 08:39 Temperature 97.7 F 12/11/23 08:46 Pulse Rate 53 L 12/11/23 10:50 Respiratory Rate 20 12/11/23 10:50 Blood Pressure 126/62 12/11/23 10:45 Pulse Oximetry 100 12/11/23 08:46 Oxygen Delivery Method Room Air 12/11/23 08:46 Medical Decision Making [facility] Narrative Medical decision making narrative: The patient EKG showing sinus rhythm with a heart rate of [address] elevation or depression CT head as well as CT cervical spine and CT sinuses showed no acute pathology The patient was discharged home with continued supportive care Fall precaution in the detention facility advised The patient is to follow up with primary care physician in next 2-3 days or to return to the emergency department should any of the signs or symptoms worsen or new symptoms develop. The patient agrees with the following Diagnosis and Treatment plan and the patient will be discharged home. Discharge Plan Discharge Chief Complaint: Fall Clinical Impression: Acute head trauma, Fall Patient Disposition: Home, Self-Care Time of Disposition Decision: 12:00 Condition: Good Prescriptions / Home Meds: No Action atorvastatin 40 mg tablet 40 mg PO DAILY carbidopa-levodopa 25-100 mg tablet extended release 1 tab PO QID donepezil 23 mg tablet 23 mg PO DAILY fluoxetine 60 mg tablet 60 mg PO DAILY Humalog U-100 Insulin 100 unit/mL cartridge 1 sliding scale dose subcut USEASDIRECTD Januvia 100 mg tablet 100 mg PO BID Levemir FlexPen 100 unit/mL (3 mL) insulin pen 20 unit subcut QPM melatonin 3 mg capsule 3 mg PO QPM pantoprazole 40 mg tablet,delayed release (DR/EC) 40 mg PO QPM pyridostigmine bromide 30 mg tablet 30 mg PO BID cyanocobalamin (vitamin B-12) 100 mcg tablet 100 mcg PO DAILY Print Language: Romanian Instructions: Head Injury (DC), Fall Prevention (ED) Referrals: ARSENIO RODRIGUEZ [Primary Care Provider] - 1 week
--- NOTE | 2023-12-11 09:31 | ECG_ITS ---
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
== END 2023-12-11 12:50 | disposition home or self-care (01) ==
PROVIDERS: Emergency Provider Emergency Medicine; PCP Family Medicine
DX: S09.8XXA Other specified injuries of head, initial encounter (principal); W18.39XA Other fall on same level, initial encounter; G20.A1 Parkinson's disease without dyskinesia, without mention of fluctuations
CPT/HCPCS: 70450; 70486; 72125; 93005; 99284

== ENCOUNTER 2024-02-20 19:35 | Emergency (ER) | payer MEDICARE, SELFPAY ==
[2024-02-20 19:38] VITALS: BP 121/43; PULSE 55; TEMP 36.4; O2SAT 98; BMI 25.8
--- NOTE | 2024-02-20 19:43 | CT_ITS ---
The [address] [address] Patient Name: SUSIE SAMUELS MRN: [id number] date: 1950 Sex: M Assigned Patient Location: ED.MAIN Current Patient Location: Accession/Order Number: [id number] Exam Date: 02/20/2024 19:59 Report Date: 02/20/2024 20:17 At the request of: SAMINA MAURICIO Procedure: CT head/brain wo con EXAM: CT head/brain wo con HISTORY: dizzy , and the patient fell today. COMPARISON: 12/11/2023 TECHNIQUE: Multiple computed tomograms of the head were obtained, with sagittal and coronal reconstructions. FINDINGS: The ventricles are near the upper limits of normal in size, the lateral ventricles are symmetric and the third ventricles in the midline. The sylvian fissures and cortical sulci are near the upper limits of normal in size. There is no evidence of an intrarenal hemorrhage, mass lesion or apparent acute infarct. Slightly diminished attenuation is seen in the periventricular deep white matter bilaterally. Some calcifications are seen in the anterior falx. There is cerebellum and visualized brainstem are intact. The visualized paranasal sinuses are clear. There is mild deviation of the nasal septum to the left. The there is no apparent acute skull fracture. CT/CT head/brain wo con IMPRESSION: There is no evidence of an intracranial hemorrhage, mass lesion or apparent acute infarct. Mild or early diffuse atrophy is present. Slightly diminished attenuation the deep white matter indicates small vessel ischemic changes. The visualized paranasal sinuses are clear. There is no apparent acute skull fracture. The overall appearance has not changed significantly. Electronically authenticated by: FRANCISCO J CARTER Date: 02/20/2024 20:17
--- NOTE | 2024-02-20 19:43 | ECG_ITS ---
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
--- NOTE | 2024-02-20 19:43 | XR_ITS ---
The [address] [address] Patient Name: SUSIE SAMUELS MRN: [id number] date: 1950 Sex: M Assigned Patient Location: ER Current Patient Location: ED.MAIN Accession/Order Number: [id number] Exam Date: 02/20/2024 19:56 Report Date: 02/20/2024 20:58 At the request of: SAMINA MAURICIO Procedure: XR chest 1V EXAM: XR chest 1V HISTORY: dizzy COMPARISON: None. TECHNIQUE: AP upright chest x-ray. FINDINGS: Lungs clear without infiltrate or edema. Normal heart size and mediastinal contour for technique. No pleural effusion or pneumothorax. No displaced fracture. XR/XR chest 1V IMPRESSION: Negative chest x-ray, no acute findings. Clear lungs. Electronically authenticated by: JAHAIRA CROSS Date: 02/20/2024 20:58
--- NOTE | 2024-02-20 19:45 | ED.GENADUL1 ---
HPI HPI - General Adult General Chief complaint: Dizziness Stated complaint: aggitation Time Seen by Provider: 02/20/24 19:42 Source: patient Mode of arrival: ambulance Limitations: no limitations History of Present Illness HPI narrative: 73-year-old male presents for a chief complaint of dizziness. He is at an [facility] and is there apparently because of some behavioral issues. Over the past couple days he has had increasing behavioral issues and he complained of dizziness and wanted to come to the emergency department. He came here on his own request rather than the staff sending him. He does not have a headache and has not had a fever or complaints of chest pain. He is fully oriented and appears to be a good historian. He was transported here by paramedics. Related Data Home Medications ?Medication ?Instructions ?Recorded ?Confirmed atorvastatin 40 mg tablet 40 mg PO DAILY 10/16/23 02/20/24 carbidopa ER 25 mg-levodopa 100 mg 1 tab PO QID 10/16/23 02/20/24 tablet,extended release cyanocobalamin (vitamin B-12) 100 100 mcg PO DAILY 10/16/23 12/11/23 mcg tablet donepezil 23 mg tablet 23 mg PO DAILY 10/16/23 02/20/24 fluoxetine 60 mg tablet 60 mg PO DAILY 10/16/23 02/20/24 insulin detemir U-100 100 unit/mL 20 unit subcut QPM 10/16/23 02/20/24 (3 mL) subcutaneous pen (Levemir FlexPen) insulin lispro 100 unit/mL 1 sliding scale dose subcut 10/16/23 02/20/24 subcutaneous cartridge (Humalog USEASDIRECTD U-100 Insulin) melatonin 3 mg capsule 3 mg PO QPM 10/16/23 02/20/24 pantoprazole 40 mg tablet,delayed 40 mg PO QPM 10/16/23 02/20/24 release pyridostigmine bromide 30 mg tablet 30 mg PO BID 10/16/23 02/20/24 sitagliptin phosphate 100 mg 100 mg PO BID 10/16/23 02/20/24 tablet (Januvia) Allergies Allergy/AdvReac Type Severity Reaction Status Date / Time Penicillins Allergy Severe Anaphylaxis Verified 02/20/24 19:42 Opioid HPI Opioid Management Most Recent Opioid Data: No Data to Display Review of Systems ROS Narrative A ten point review of systems is negative except as noted above. PFSH PFSH Medical History (Updated 02/20/24 @ 21:43 by Aravind Rodriguez MD) Osteoarthritis ?M19.90 - Unspecified osteoarthritis, unspecified site (ICD-10) HTN (hypertension) ?I10 - Essential (primary) hypertension (ICD-10) Homicidal ideations ?R45.850 - Homicidal ideations (ICD-10) Diabetes ?E11.9 - Type 2 diabetes mellitus without complications (ICD-10) Parkinson disease ?G20.A1 - Parkinson's disease without dyskinesia, without mention of fluctuations (ICD-10) Hyperlipemia ?E78.5 - Hyperlipidemia, unspecified (ICD-10) Anxiety ?F41.9 - Anxiety disorder, unspecified (ICD-10) Alzheimer disease ?G30.9 - Alzheimer's disease, unspecified (ICD-10) ?F02.80 - Dementia in other diseases classified elsewhere, unspecified severity, without behavioral disturbance, psychotic disturbance, mood disturbance, and anxiety (ICD-10) Agitation ?R45.1 - Restlessness and agitation (ICD-10) Depression ?F32.A - Depression, unspecified (ICD-10) Dementia ?F03.90 - Unspecified dementia, unspecified severity, without behavioral disturbance, psychotic disturbance, mood disturbance, and anxiety (ICD-10) Exam Narrative Exam Narrative: Nurses note and vital signs reviewed and patient is not hypoxic. General: The patient appears well and in no apparent distress. Patient is resting comfortably on cart. Skin: Warm, dry, no pallor noted. There is no rash noted. Head: Normocephalic, atraumatic Eye: Normal conjunctiva, no drainage Ears, Nose, Mouth, and Throat: oral mucosa is moist. Nares patent. Cardiovascular: Regular Rate and Rhythm Respiratory: Patient is in no distress, no accessory muscle use, lungs are clear to auscultation, no wheezing, rales or rhonchi Back: non-tender GI: Soft and nontender Musculoskeletal: The patient has no evidence of calf tenderness, no pitting edema, symmetrical pulses noted bilaterally Neurological: A&O x4, normal speech, upper and lower extremity strength intact and symmetric Psychiatric: Cooperative, not argumentative Constitutional Vital Signs, click to edit/add: Last Vital Signs Temp 97.5 F L 02/20/24 19:38 Pulse 55 L 02/20/24 19:38 Resp 18 02/20/24 19:38 BP 121/43 L 02/20/24 19:38 Pulse Ox 98 02/20/24 19:38 O2 Del Method Room Air 02/20/24 19:38 Course Vital Signs Vital signs: Vital Signs Temperature 97.5 F L 02/20/24 19:38 Pulse Rate 55 L 02/20/24 19:38 Respiratory Rate 18 02/20/24 19:38 Blood Pressure 121/43 L 02/20/24 19:38 Pulse Oximetry 98 02/20/24 19:38 Oxygen Delivery Method Room Air 02/20/24 19:38 Temperature 97.5 F L 02/20/24 19:38 Pulse Rate 55 L 02/20/24 19:38 Respiratory Rate 18 02/20/24 19:38 Blood Pressure 121/43 L 02/20/24 19:38 Pulse Oximetry 98 02/20/24 19:38 Oxygen Delivery Method Room Air 02/20/24 19:38 Medical Decision Making MDM Narrative Medical decision making narrative: His extensive workup here is negative and he is able to be released back to [facility]. Findings were discussed with the patient. Differential Diagnosis Differential Diagnosis: Anemia, acute kidney injury, dehydration, medication side of Lab Data Lab results reviewed: Yes I reviewed the patient's lab results Labs: Lab Results 02/20/24 02/20/24 Range/Units 19:55 21:21 WBC 8.8 (4.0-11.0) 10^3/uL RBC 4.54 L (4.70-6.10) 10^6/uL Hgb 13.9 L (14.0-18.0) g/dL Hct 41.5 L (42.0-54.0) % MCV 91.4 (80.0-94.0) fL MCH 30.6 (25.9-34.0) pg MCHC 33.5 (29.9-35.2) g/dL RDW 12.9 (11.0-15.0) % Plt Count 332 (150-450) 10^3/uL MPV 8.8 L (9.5-13.5) fL Neut % (Auto) 73.0 (43.0-75.0) % Lymph % (Auto) 16.9 L (20.5-60.0) % [place] % (Auto) 8.4 (1.7-12.0) % Eos % (Auto) 1.1 (0.9-7.0) % Baso % (Auto) 0.3 (0.2-2.0) % Neut # (Auto) 6.4 (1.4-6.5) 10^3/uL Lymph # (Auto) 1.5 (1.2-3.8) 10^3/uL [place] # (Auto) 0.7 (0.3-0.8) 10^3/uL Eos # (Auto) 0.1 (0.0-0.7) 10^3/uL Baso # (Auto) 0.0 (0.0-0.1) 10^3/uL Abs Immat Gran (auto) 0.03 (0.00-0.03) 10^3/uL Imm/Tot Granulo (auto) 0.3 (0.0-0.5) % Sodium 138 (136-145) mmol/L Potassium 4.3 (3.5-5.1) mmol/L Chloride 103 (98-107) mmol/L Carbon Dioxide 28.9 (21.0-32.0) mmol/L Anion Gap 10.4 BUN 22.0 H (7.0-18.0) mg/dL Creatinine 1.15 (0.70-1.30) mg/dL Est GFR ( Amer) >60 (>=60 mL/min/1.73m^2) Est GFR (Non-Af Amer) >60 (>=60 mL/min/1.73m^2) BUN/Creatinine Ratio 19.1 Glucose 192 H (74-106) mg/dL Calcium 8.8 (8.5-10.1) mg/dL Troponin I High Sens 10.4 (4.0-76.1) pg/mL Urine Color Yellow (YELLOW) Urine Clarity Clear (CLEAR) Urine pH 6.0 (5.0-9.0) Ur Specific [place] 1.025 (1.005-1.025) Urine Protein Negative (NEG/TRACE) mg/dL Urine Glucose (UA) Negative (NEGATIVE) mg/dL Urine Ketones Trace A (NEGATIVE) mg/dL Urine Occult Blood Negative (NEGATIVE) Urine Nitrite Negative (NEGATIVE) Urine Bilirubin Negative (NEGATIVE) Urine Urobilinogen 2.0 A (0.2-1.0) EU/dL Ur Leukocyte Esterase Negative (NEGATIVE) Urine RBC 0-2 (0-2) #/HPF Urine WBC 2-5 A (NONE SEEN) #/HPF Ur Squamous Epith Cells None seen (NONE/RARE) #/LPF Urine Crystals None seen (None Seen) #/HPF Urine Bacteria None seen (NONE SEEN) #/HPF Urine Casts None seen (NONE SEEN) #/LPF Urine Mucus None seen (NONE SEEN) Ur Culture Indicated? No Imaging Data CT scan - head: Radiologist's impression: ITS Impressions Chest X-Ray 02/20/24 19:43 IMPRESSION: Negative chest x-ray, no acute findings. Clear lungs. Electronically authenticated by: JAHAIRA CROSS Date: 02/20/2024 20:[address] 02/20/24 19:43 IMPRESSION: There is no evidence of an intracranial hemorrhage, mass lesion or apparent acute infarct. Mild or early diffuse atrophy is present. Slightly diminished attenuation the deep white matter indicates small vessel ischemic changes. The visualized paranasal sinuses are clear. There is no apparent acute skull fracture. The overall appearance has not changed significantly. Electronically authenticated by: FRANCISCO J CARTER Date: 02/20/2024 20:17 ECG Data Attestation: I personally reviewed and interpreted this ECG as follows: (EKG on my interpretation shows sinus rhythm with rate of 51 and a right bundle branch block.) Discharge Plan Discharge Chief Complaint: Dizziness Clinical Impression: Dizziness Patient Disposition: Home, Self-Care Time of Disposition Decision: 21:43 Condition: Good Mode of Transportation: Private Vehicle Prescriptions / Home Meds: No Action atorvastatin 40 mg tablet 40 mg PO DAILY carbidopa-levodopa 25-100 mg tablet extended release 1 tab PO QID donepezil 23 mg tablet 23 mg PO DAILY fluoxetine 60 mg tablet 60 mg PO DAILY Humalog U-100 Insulin 100 unit/mL cartridge 1 sliding scale dose subcut USEASDIRECTD Januvia 100 mg tablet 100 mg PO BID Levemir FlexPen 100 unit/mL (3 mL) insulin pen 20 unit subcut QPM melatonin 3 mg capsule 3 mg PO QPM pantoprazole 40 mg tablet,delayed release (DR/EC) 40 mg PO QPM pyridostigmine bromide 30 mg tablet 30 mg PO BID cyanocobalamin (vitamin B-12) 100 mcg tablet 100 mcg PO DAILY Print Language: Divehi Instructions: Dizziness (ED) Referrals: ARSENIO RODRIGUEZ [Primary Care Provider] - 1 week
--- OUTSIDE RECORDS SUMMARY | 2024-02-20 19:50 | XMS_ITS | CCD ---
Author Organization [facility] Care Team Providers Care Linen Folder Name Role Phone Dandre Swanson MD Primary Care Provider AVLE EVANGELISTA Attending Unavailable VALE EVANGELISTA Referring Unavailable SWANSON, DANDRE M Primary Care Unavailable YASMINEFTVALE Yang Referring Unavailable SWANSON, DANDRE [...] SERVICE Consulting Unavailable RAMIN MIXON Consulting Unavailable JASON WALDEN Referring Unavailable SWANSON, DANDRE M Primary Care Unavailable RAMOSEAJASON Faulkner Referring Unavailable SWANSON, DANDRE M Primary Care [...] Care Provider DANDRE SWANSON Primary Care Unavailable SWANSONVERADANDRE M Referring Unavailable SWANSON DANDRE M Referring Unavailable SWANSON, DANDRE M Primary Care Unavailable MAIRA MORALES Referring Unavailable KAREN, DANDRE M Primary Care Unavailable JOHAN WISEMAN Referring Unavailable KAREN, DANDRE M Primary Care Unavailable SWANSON, DANDRE M Primary Care Unavailable LETY STEIN Admitting Unavailable SHIRLEY CASTANEDA Attending Unavailable HOLDEN, BERTRAM S Consulting Unavailable KAREN DANDRE M Primary Care Unavailable JOSEF FARAH Consulting Unavailable LISET, MARTA Admitting Unavailable LISET, MARTA Attending Unavailable JOHAN WISEMAN Consulting Unavailable CODY DOUGHERTY Consulting Unavailable Allergies Allergy Classification Reported Allergen(s) Allergy Type Date of Onset Reaction(s) Facility (16 sources) Penicillins; Translations: [PENICILLINS] Propensity to adverse reactions to drug 5 Anaphylaxis [employer] (16 sources) Simvastatin; Translations: [SIMVASTATIN] Drug Allergy 5 Other (See Comments) [employer] Phone: (1 source) ALLERGIES NOT ON FILE; Translations: [ALLERGIES NOT ON FILE] Propensity to adverse reactions (disorder) [facility] Repository (2 sources) Vibegron Propensity to adverse reactions to drug 4 Rash [employer] Work Phone: (2 sources) Metformin And Related Propensity to adverse reactions to drug 4 Diarrhea [employer] Medications Current Medications Medication Drug Class(es) Dates Sig (Normalized) Sig (Original) Acetaminophen (9 sources) Start: 06-16-2023 acetaminophen (TYLENOL) tablet 650 mg take 2 tablets by [facility] every six hours as needed for pain acetaminophen (TYLENOL) 325 MG tablet Ta ke 650 mg by mouth every 6 hours as needed for Pain 0 Active atorvastatin 40 mg oral tablet (16 sources) HMG-CoA Reductase Inhibitor Start: 09-01-2022 atorvastatin [...] Start: 02-12-2016 take 2 tablets by mo [facility] three times weekly atorvastatin (LIPITOR) 20 mg tablet Take 2 tablets (40 mg total) by mouth See Admin Instructions. THREE TIMES A WEEK 02/12/2016 Active 1000 ml glucose 100 mg/ml [...] Active insulin detemir 100 unt/ml injectable solution (13 sources) Insulin Analog Start: 04-20-2023 insulin detemi r U-100 (LEVEMIR) 100 unit/mL injection Indications: type 2 diabetes mellitus Inject 0.22 mL (22 Units total) under the skin in the morning. Indications: type 2 diabetes mellitus. 04/20/2023 Active Start: 09-08-2022 End: 06-16-2023 insulin detemir (LEVEMIR FLE XPEN) 100 UNIT/ML injection pen Indications: Type 2 diabetes mellitus with diabetic neuropathy, with long-term current use of insulin ([facility]) Inject 45 Units into the skin daily 60 mL 3 09/08/2022 06/16/2023 Discontinued (DOSE ADJUSTMENT) Start: 07-07-2022 End: 09-08-2022 LEVEMIR FLEXPEN 100 UNIT/ML injection pen Indications: Type 2 diabetes mellitus without complication, with long-term current use of insulin ([facility]) INJECT SUBCUTANEOUSLY 55 UNITS DAILY 60 mL 3 07/07/2022 09/08/2022 Discontinued (REORDER) Start: 10-13-2021 End: 01-11-2022 insulin detemir (LEVEMIR FLE XTOUCH) 100 UNIT/ML injection pen Indications: Type 2 diabetes mellitus without complication, with long-term current use of insulin ([facility]) Inject 40 Units into the skin nightly 36 mL 3 10/13/2021 01/11/2022 Active lisinopril 2.5 mg oral tablet (9 sources) Angiotensin Converting Enzyme Inhibitor Start: 04-27-2022 lisinopril (PRINIVIL;ZESTRIL) 2.5 MG tablet Indications: Type 2 diabetes mellitus without complication, with long-term current use of insulin ([facility]) TAKE 1 TABLET DAILY 90 tablet 3 04/27/2022 Active Start: 04-13-2021 lisinopril (AK INIVIL;ZESTRIL) 2.5 MG tablet Indications: Type 2 diabetes mellitus without complication, with long-term current use of insulin ([facility]) TAKE 1 TABLET DAILY 90 tablet 3 [...] carisa 500 mg extended release oral tablet (15 sources) B i g u a n i d e Start: 04-20-2023 metFORMIN XR (GLUCOPHAGE XR) 500 mg 24 hr tablet Take 500mg daily for 2 weeks, then 1000mg daily thereafter. 04/20/2023 Active Start: 09-01-2022 metFORMIN (GLU COPHAGE) [...] Discharge) midodrine hydrochloride 2.5 mg oral tablet (7 sources) alpha-Adrenergic Agonist Start: 06-16-2023 2.5 m g, Oral, 3 TIMES DAILY WITH MEALS, First dose on Luna 06/16/23 at 1700, Until Discontinued Do not give after 1800 or within 4 hrs of bedtime. Start: 06-16-2023 End: 06-17-2023 take 1 tablet by mouth three times daily midodrine (PROAMATINE) 2.5 mg tablet Take 1 tablet (2.5 mg total) by mouth 3 (three) times a day. 06/17/2023 Active 24 hr mirabegron 50 mg extended release oral tablet (2 sources) beta3-Adrenergic Agonist Start: 05-25-2023 End: 08-23-2023 take 50 mg by mouth once daily MYRBETRIQ 50 MG TB24 Take 50 mg by mouth Every Day 0 05/25/2023 08/23/2023 Active ondansetron (ZOFRAN-ODT) disintegrating tablet 4 mg (1 source) Start: 06-16-2023 ondansetron (ZOFRAN-ODT) disintegrating tablet 4 mg pantoprazole 40 mg delayed release oral tablet (6 sources) Proton Pump Inhibitor Start: 04-20-2023 End: 05-07-2024 take 1 tablet by mouth once daily before breakfast pantoprazole (PROTONIX) 40 mg EC tablet Take 1 tablet (40 mg total) by mouth every morning before breakfast. 07/28/2023 Active Potassium Chloride (1 source) Start: 06-16-2023 potassium chloride (KLOR-CON M) extended release tablet 40 mEq pyridostigmine bromide 60 mg oral tablet (10 sources) Start: 07-23-2023 take 0.5 tablet by mouth in the morning, then take 0.5 tablet by mouth at bedtime pyridostigmine (MESTINON) 60 mg tablet Take 0.5 tablets (30 mg total) by mouth in the morning and 0.5 tablets (30 mg total) before bedtime. 07/23/2023 Active Start: 06-18-2023 take 1 tablet by brad th once daily pyRIDostigmine (MESTINON) 60 MG tablet [...] (2 times per day), First dose on Luna 06/16/23 at 2100, Until Discontinued For Line Patency: [...] Active donepezil hydrochloride 5 mg oral tablet (8 sources) Start: 06-16-2023 take 15 mg by mouth once daily 15 mg, Oral, NIGHTLY, First dose on Luna 06/16/23 at 2100, Until Discontinued Start: 04-07-2023 End: 03-24-2024 take 1.5 tablets by mouth once daily donepeziL (ARICEPT) 10 mg tablet Take 1.5 tablets (15 mg total) by mouth nightly. 04/07/2023 03/24/2024 Active Start: 08-12-2022 take 1 [...] invasive procedure. FLUoxetine 20 mg oral capsule (19 sources) Serotonin Reuptake Inhibitor Start: 06-16-2023 take [...] 09/01/2022 09/08/2022 Discontinued (REORDER) Start: 10-26-2021 FLUoxetine (AK OZAC) 20 MG capsule Indications: Recurrent major depressive disorder, in partial remission (HCC) TAKE 1 CAPSULE DAILY 90 capsule 3 10/26/2021 Active Start: 01-19-2016 take 3 capsules by m outh once daily before breakfast FLUoxetine (PROzac) 20 mg capsule Indications: Anxiety Take 3 capsules (60 mg total) by mouth every morning before breakfast Indications: Anxiety. 01/19/2016 Active gadoteridol (PROHANCE) injection 19 mL [...] at 0900, Until Discontinued polyethylene glycol 3350 12799 mg powder for oral solution (1 source) [...] Date Documented Da te Episodic/Chronic Anxiety disorders (6 sources) Anxiety; Translations: [Anxiety disorder, unspecified] Onset: 7 10-23-2016 Chronic Aortic; peripheral; and visceral artery aneurysms (14 sources) Abdominal aortic aneurysm; Translations: [Abdominal aortic aneurysm, without rupture] Onset: 1 12-02-2020 Chronic Delirium, dementia, and amnestic and other cognitive disorders (5 sources) Senile dementia; Translations: [Alzheimer's disease with late onset] Onset: 4 12-23-2023 Chronic Diabetes mellitus with complications (15 sources) Neuropathy due to type 2 diabetes mellitus; Translations: [Type 2 diabetes mellitus with diabetic neuropathy, unspecified] Onset: 5 01-19-2022 Chronic Disorders of lipid metabolism (19 sources) Hyperlipidemia; Translations: [Other hyperlipidemia] Onset: 5 Chronic Esophageal disorders (3 sources) Gastroesophageal reflux disease; Translations: [Gastro-esophageal reflux disease without esophagitis] Onset: 4 01-27-2024 Chronic Essential hypertension (4 sources) Essential hypertension; Translations: [Essential (primary) hypertension] Onset: 4 09-09-2023 Chronic Genitourinary symptoms and ill-defined conditions (3 sources) Urinary incontinence; Translations: [Unspecified urinary incontinence] Onset: 4 09-09-2023 Chronic Genitourinary symptoms and ill-defined conditions (1 source) Hematuria, unspecified; Translations: [Hematuria, unspecified] Onset: 4 Episodic Impulse control disorders, NEC (1 source) Homicidal ideations; Translations: [Homicidal ideations] Onset: 4 Episodic Mood disorders (20 sources) Depressive disorder; Translations: [Depression] Onset: 7 12-19-2018 Chronic Osteoarthritis (20 sources) Arthritis of knee; Translations: [Unilateral primary osteoarthritis, unspecified knee] Onset: 5 12-17-2014 Chronic Other gastrointestinal disorders (1 source) Other fecal abnormalities; Translations: [Other fecal abnormalities] Onset: 4 Episodic Other gastrointestinal disorders (1 source) Diarrhea Onset: 4 Episodic Other hereditary and degenerative nervous system conditions (2 sources) Mild cognitive impairment, so stated; Translations: [Mild cognitive impairment of uncertain or unknown etiology] Onset: 3 Chronic Other nervous system disorders (10 sources) Neuropathy; Translations: [Polyneuropathy, unspecified] Onset: 2 01-14-2022 Chronic Other nervous system disorders (3 sources) Tremor; Translations: [Tremor, unspecified] Episodic Other nutritional; endocrine; and metabolic disorders (3 sources) Cholesterol level - finding; Translations: [Lipoprotein deficiency] Onset: 4 09-14-2023 Chronic Parkinson`s disease (17 sources) Parkinson's disease; Translations: [Parkinson's disease] Onset: 2 01-14-2022 Chronic Parkinson`s disease (3 sources) Parkinson`s disease; Translations: [Parkinson's disease with dyskinesia, without mention of fluctuations] Onset: 2 Residual codes; unclassified (1 source) Sleep apnea, unspecified; Translations: [Sleep apnea, unspecified] Onset: 3 Chronic Residual codes; unclassified (5 sources) Sleep apnea; Translations: [Sleep apnea, unspecified] Onset: 3 09-13-2022 Chronic Residual codes; unclassified (1 source) Restlessness and agitation; Translations: [Restlessness and agitation] Onset: 4 Chronic Residual codes; unclassified (2 sources) Other amnesia; Translations: [Other amnesia] Onset: 3 Episodic Residual codes; unclassified (1 source) Other specified health status; Translations: [Other specified health status] Onset: 4 Episodic Spondylosis; intervertebral disc disorders; other back problems (9 sources) Cervical arthritis; Translations: [Spondylosis without myelopathy or radiculopathy, cervical region] Onset: 2 Chronic Superficial injury; contusion (1 source) Contusion of scalp; Translations: [Contusion of scalp, subsequent encounter] 12-23-2023 Episodic Syncope (6 sources) Near syncope; Translations: [Syncope and collapse] Onset: 4 06-16-2023 Episodic Unclassified (1 source) Diarrhea x3 today Onset: 4 Unclassified (1 source) Unspecified dementia, severe, with agitation; Translations: [Unspecified dementia, severe, with agitation] Onset: 4 Past or Other Problems Problem Classification Problem Date Documented Da te Episodic/Chronic Diabetes mellitus without complication (20 sources) Type 2 diabetes mellitus without complication; Translations: [Type 2 diabetes mellitus without complications] Onset: 12-17-2014 Resolved: 08-05-2023 Chronic E Codes: Adverse effects of medical drugs (4 sources) Adverse reaction to drug; Translations: [Adverse effect of unspecified drugs, medicaments and biological substances, initial encounter] Onset: 04-17-2023 04-17-2023 Episodic Gastrointestinal hemorrhage (5 sources) Melena; Translations: [Melena] Onset: 04-16-2023 04-18-2023 Episodic Nutritional deficiencies (15 sources) Cobalamin deficiency; Translations: [Deficiency of other specified B group vitamins] Onset: 10-30-2021 10-30-2021 Episodic Other aftercare (1 source) watermaster (current) use of insulin; Translations: [longterm (current) use of insulin] Onset: 12-17-2014 Episodic Other circulatory disease (4 sources) Low blood pressure; Translations: [Hypotension, unspecified] Onset: 09-09-2023 09-09-2023 Episodic Other gastrointestinal disorders (4 sources) Loose stool; Translations: [Other fecal abnormalities] Onset: 04-17-2023 04-17-2023 Episodic Other nervous system disorders (12 sources) Abnormal gait; Translations: [Unspecified abnormalities of gait and mobility] Onset: 01-14-2022 Episodic Other nervous system disorders (6 sources) Impaired cognition; Translations: [Other symptoms and [...] gait and mobility] Onset: 01-01-2022 Episodic Other screening for suspected conditions (not mental disorders or infectious disease) (3 sources) Other specified abnormal findings of blood chemistry; Translations: [Other abnormal blood chemistry] Onset: 09-14-2023 09-14-2023 Episodic Other skin disorders (14 sources) Keratoacanthoma; Translations: [Other specified epidermal thickening] Onset: 11-29-2019 11-29-2019 Episodic Unclassified (2 sources) Onset: 09-08-2022 09-08-2022 Urinary tract infections (5 sources) Urinary tract infection, site not specified; Translations: [Urinary tract infectious disease] Onset: 04-16-2023 Resolved: 08-05-2023 04-17-2023 Episodic Results Test Name Value Interpretation Reference Range [facility] Glucose,Whole Bloodon 2023 Glucose [Mass/Vol] 169 mg/dL High 75-110 [facility] Glucose [Mass/Vol] 129 mg/dL High 75-110 [facility] Glucose [Mass/Vol] 149 mg/dL High 75-110 [facility] Glucose,Whole Bloodon 2023 Glucose [Mass/Vol] 210 mg/dL High 75-110 [facility] Glucose [Mass/Vol] 169 mg/dL High 75-110 [facility] Glucose [Mass/Vol] 120 mg/dL High 75-110 [facility] Glucose [Mass/Vol] 139 mg/dL High 75-110 [facility] Glucose,Whole Bloodon 2023 Glucose [Mass/Vol] 222 mg/dL High 75-110 [facility] Glucose [Mass/Vol] 172 mg/dL High 75-110 [facility] Glucose [Mass/Vol] 165 mg/dL High 75-110 [facility] Glucose [Mass/Vol] 178 mg/dL High 75-110 [facility] Glucose,Whole Bloodon 2023 Glucose [Mass/Vol] 249 mg/dL High 75-110 [facility] Glucose [Mass/Vol] 96 mg/dL Normal 75-110 [facility] Glucose [Mass/Vol] 57 mg/dL Low 75-110 [facility] Comment on above: Result Comment: [employer] Noted Glucose,Whole Bloodon 2023 Glucose [Mass/Vol] 121 mg/dL High 75-110 [facility] Glucose [Mass/Vol] 70 mg/dL Low 75-110 [facility] Glucose [Mass/Vol] 73 mg/dL Low 75-110 [facility] Glucose [Mass/Vol] 57 mg/dL Low 75-110 [facility] Glucose [Mass/Vol] 71 mg/dL Low 75-110 [facility] Glucose,Whole Bloodon 2023 Glucose [Mass/Vol] 77 mg/dL Normal 75-110 [facility] Glucose [Mass/Vol] 95 mg/dL Normal 75-110 [facility] Glucose [Mass/Vol] 110 mg/dL Normal 75-110 [facility] Glucose [Mass/Vol] 123 mg/dL High 75-110 [facility] Glucose,Whole Bloodon 2023 Glucose [Mass/Vol] 224 mg/dL High 75-110 [facility] Glucose [Mass/Vol] 148 mg/dL High 75-110 [facility] Glucose [Mass/Vol] 184 mg/dL High 75-110 [facility] Glucose,Whole Bloodon 2023 Glucose [Mass/Vol] 129 mg/dL High 75-110 [facility] Glucose [Mass/Vol] 141 mg/dL High 75-110 [facility] Glucose [Mass/Vol] 87 mg/dL Normal 75-110 [facility] Glucose [Mass/Vol] 103 mg/dL Normal 75-110 [facility] Glucose,Whole Bloodon 2023 Glucose [Mass/Vol] 139 mg/dL High 75-110 [facility] Glucose [Mass/Vol] 184 mg/dL High 75-110 [facility] Glucose [Mass/Vol] 70 mg/dL Low 75-110 [facility] Glucose,Whole Bloodon 2023 Glucose [Mass/Vol] 181 mg/dL High 75-110 [facility] Glucose [Mass/Vol] 126 mg/dL High 75-110 [facility] Glucose [Mass/Vol] 132 mg/dL High 75-110 [facility] Glucose [Mass/Vol] 156 mg/dL High 75-110 [facility] Glucose,Whole Bloodon 2023 Glucose [Mass/Vol] 213 mg/dL High 75-110 [facility] Glucose [Mass/Vol] 143 mg/dL High 75-110 [facility] Glucose [Mass/Vol] 118 mg/dL High 75-110 [facility] Glucose [Mass/Vol] 78 mg/dL Normal 75-110 [facility] Glucose,Whole Bloodon 2023 Glucose [Mass/Vol] 208 mg/dL High 75-110 [facility] Glucose [Mass/Vol] 168 mg/dL High 75-110 [facility] Glucose [Mass/Vol] 92 mg/dL Normal 75-110 [facility] Glucose [Mass/Vol] 135 mg/dL High 75-110 [facility] Glucose,Whole Bloodon 2023 Glucose [Mass/Vol] 171 mg/dL High 75-110 [facility] Glucose [Mass/Vol] 132 mg/dL High 75-110 [facility] Glucose [Mass/Vol] 166 mg/dL High 75-110 [facility] Glucose [Mass/Vol] 191 mg/dL High 75-110 [facility] Glucose,Whole Bloodon 2023 Glucose [Mass/Vol] 156 mg/dL High 75-110 [facility] Glucose [Mass/Vol] 155 mg/dL High 75-110 [facility] Glucose [Mass/Vol] 143 mg/dL High 75-110 [facility] Glucose [Mass/Vol] 145 mg/dL High 75-110 [facility] Glucose,Whole Bloodon 2023 Glucose [Mass/Vol] 183 mg/dL High 75-110 [facility] Glucose [Mass/Vol] 116 mg/dL High 75-110 [facility] Glucose [Mass/Vol] 84 mg/dL Normal 75-110 [facility] Glucose [Mass/Vol] 99 mg/dL Normal 75-110 [facility] Glucose,Whole Bloodon 2023 Glucose [Mass/Vol] 113 mg/dL High 75-110 [facility] Glucose [Mass/Vol] 106 mg/dL Normal 75-110 [facility] Glucose [Mass/Vol] 103 mg/dL Normal 75-110 [facility] Glucose [Mass/Vol] 153 mg/dL High 75-110 [facility] B12/Folate Panelon Cobalamin (Vitamin B12) [Mass/Vol] 461 pg/mL Normal 232-1245 [facility] Comment on above: Performed By: #### B 12FOL ####[facility] [place], [place] [id number] lab Director: Norberto Condon MD Folic Acid 12.2 ng/mL Normal 4.8-24.2 [facility] Comment on above: Performed By: #### B 12FOL ####[address] [place] [address] lab Director: Norberto Condon MD Glucose,Whole Bloodon 2023 Glucose [Mass/Vol] 207 mg/dL High -110 [facility] Glucose [Mass/Vol] 180 mg/dL High -110 [facility] Glucose [Mass/Vol] 213 mg/dL High 75-110 [facility] Glucose [Mass/Vol] 138 mg/dL High 75-110 [facility] CBC with Diffon 07-18-2023 Abs. Basophil 0.00 k/uL Normal 0.0-0.2 [facility] Comment on above: Performed By: #### C DP, MG, CP, ALCB ####[facility] [id number], [place] [id number] lab Director: Reji Son DO Abs.Neutrophil (Seg) 7.60 k/uL Normal 1.3-9.1 [facility] Comment on above: Performed By: #### C DP, MG, CP, ALCB ####[facility] [id number] [place] [address] Lab Director: Reji Son DO Basophils/100 WBC (Bld) 1 % Normal 0-2 [facility] Comment on above: Performed By: #### C DP, MG, CP, ALCB ####[facility] [id number] [place] [address] Lab Director: Reji Son DO Eosinophils (Bld) [#/Vol] 0.10 10*3/uL Normal 0.0-0.4 [facility] Comment on above: Performed By: #### C DP, MG, CP, ALCB ####[facility] [id number] [place] [address] Lab Director: Reji Son DO Eosinophils/100 WBC (Bld) 2 % Normal 0-4 [facility] Comment on above: Performed By: #### C DP, MG, CP, ALCB ####[facility] [id number] [facility] [place] [address] Lab Director: Reji Son DO Erythrocyte distribution width (RBC) [Ratio] 13.9 % Normal 11.5-14.9 [facility] Comment on above: Performed By: #### C DP, MG, CP, ALCB ####[facility] [id number] [facility] [place] [address] Lab Director: Reji Son DO Hematocrit (Bld) [Volume fraction] 42.8 % Normal 41-53 [facility] Comment on above: Performed By: #### C DP, MG, CP, ALCB ####[facility] [id number] [place] [address] Lab Director: Reji Son DO Hemoglobin (Bld) [Mass/Vol] 14.4 g/dL Normal 13.5-17.5 [facility] Comment on above: Performed By: #### C DP, MG, CP, ALCB ####[facility] [id number] [facility].[place], [place] [phone] Director: Reji Son DO Lymphocytes (Bld) [#/Vol] 1.20 10*3/uL Normal 1.0-4.8 [facility] Comment on above: Performed By: #### C DP, MG, CP, ALCB ####[facility] [id number] [facility].[place], [place] [phone] Director: Reji Son DO Lymphocytes/100 WBC (Bld) 12 % Low 24-44 [facility] Comment on above: Performed By: #### C DP, MG, CP, ALCB ####[address], [place] [address])[phone] Director: Reji Son DO MCH (RBC) [Entitic mass] 30.3 pg Normal 26-34 [facility] Comment on above: Performed By: #### C DP, MG, CP, ALCB ####[facility] [id number] [facility].[place], [place] [address])[phone] Director: Reji Son DO MCHC (RBC) [Mass/Vol] 33.7 g/dL Normal 31-37 [facility] Comment on above: Performed By: #### C DP, MG, CP, ALCB ####[facility] [id number] [facility].[place], [place] [phone] Director: Reji Son DO MCV (RBC) [Entitic vol] 89.9 fL Normal 80-100 [facility] Comment on above: Performed By: #### C DP, MG, CP, ALCB ####[facility] [id number] [place] [address].[place] [address] Lab Director: Reji Son DO Monocytes (Bld) [#/Vol] 0.80 10*3/uL Normal 0.1-1.3 [facility] Comment on above: Performed By: #### C DP, MG, CP, ALCB ####[facility] [id number] [place] [address] Lab Director: Reji Son DO Monocytes/100 WBC (Bld) 8 % High 1-7 [facility] Comment on above: Performed By: #### C DP, MG, CP, ALCB ####[facility] [id number] [place] [address] Lab Director: Reji Son DO Neutrophil (Seg) 77 % High 36-66 [facility] Comment on above: Performed By: #### C DP, MG, CP, ALCB ####[facility] [id number] [facility] [place] [address] Lab Director: Reji Son DO Platelet mean volume (Bld) [Entitic vol] 7.1 fL Normal 6.0-12.0 [facility] Comment on above: Performed By: #### C DP, MG, CP, ALCB ####[facility] [id number] [facility] [place] [address] Lab Director: Reji Son DO Platelets (Bld) [#/Vol] 329 10*3/uL Normal 150-450 [facility] Comment on above: Performed By: #### C DP, MG, CP, ALCB ####[facility] [id number] [facility] [place] [address] Lab Director: eRji Son DO RBC (Bld) [#/Vol] 4.77 10*6/uL Normal 4.5-5.9 [facility] Comment on above: Performed By: #### C DP, MG, CP, ALCB ####[facility] [id number] [place] [address] lab Director: Reji Son DO WBC (Bld) [#/Vol] 9.8 10*3/uL Normal 3.5-11.0 [facility] Comment on above: Performed By: #### C DP, MG, CP, ALCB ####[facility] [id number] [facility].[place], [place] [id number])[phone] Director: Reji Son DO Comp Metabolic Profon 2023 ALT [Catalytic activity/Vol] U/L Low 5-41 [facility] Comment on above: Performed By: #### C DP, MG, CP, ALCB ####[facility] Ssa4126 [place], [place] [phone] Director: Reji Son DO Albumin [Mass/Vol] 4.0 g/dL Normal 3.5-5.2 [facility] Comment on above: Performed By: #### C DP, MG, CP, ALCB ####[facility] Wbl4083 [place], [place] [phone] Director: Reji Son DO Alkaline Phos 93 U/L Normal 40-129 [facility] Comment on above: Performed By: #### C DP, MG, CP, ALCB ####[facility] [id number] [place] [address].[place] [address] Lab Director: Reji Son DO Anion gap [Moles/Vol] 12 mmol/L Normal 9-17 [facility] Comment on above: Performed By: #### C DP, MG, CP, ALCB ####[facility] Qug3823 [facility].[place], [place] [phone] Director: Reji Son DO AST [Catalytic activity/Vol] 16 U/L Normal <40 [facility] Comment on above: Performed By: #### C DP, MG, CP, ALCB ####[facility] Bnf[address] [place] [address] Lab Director: Reji Son DO Bilirubin [Mass/Vol] 0.8 mg/dL Normal 0.3-1.2 [facility] Comment on above: Performed By: #### C DP, MG, CP, ALCB ####[facility] [id number] [place] [address] Lab Director: Reji Son DO Calcium [Mass/Vol] 9.2 mg/dL Normal 8.6-10.4 [facility] Comment on above: Performed By: #### C DP, MG, CP, ALCB ####[facility] [address] [place] [address] lab Director: Reji Son DO Chloride [Moles/Vol] 104 mmol/L Normal 98-107 [facility] Comment on above: Performed By: #### C DP, MG, CP, ALCB ####[facility] Aaz[address] [facility] [place] [address] lab Director: Reji Son DO CO2 [Moles/Vol] 21 mmol/L Normal 20-31 [facility] Comment on above: Performed By: #### C DP, MG, CP, ALCB ####[facility] [address] [place] [address] lab Director: Reji Son DO Creatinine [Mass/Vol] 0.7 mg/dL Normal 0.7-1.2 [facility] Comment on above: Performed By: #### C DP, MG, CP, ALCB ####[facility] [address] [place] [address] lab Director: Reji Son DO GFR/1.73 sq M.predicted among non-blacks MDRD (S/P/Bld) [Vol rate/Area] mL/min/{1.73_m2} Normal >60 [facility] Comment on above: Result Comment: These results are not intended for use in patients <18 years of age. eGFR results are calculated without a race factor using the 1 CKD-EPI equation. Careful clinical correlation is recommended, particularly when comparing to results calculated using previous equations. The CKD-EPI equation is less accurate in patients with extremes of muscle mass, extra-renal metabolism of creatine, excessive creatine ingestion, or following therapy that affects renal tubular secretion. Performed By: #### C DP, MG, CP, ALCB ####[facility] Svv7131 [facility] [place] [address] Lab Director: Reji Sno DO Glucose [Mass/Vol] 161 mg/dL High 70-99 [facility] Comment on above: Performed By: #### C DP, MG, CP, ALCB ####[facility] Gxa[address] [facility] [place] [address] Lab Director: Reji Son DO Potassium [Moles/Vol] 4.0 mmol/L Normal 3.7-5.3 [facility] Comment on above: Performed By: #### C DP, MG, CP, ALCB ####[facility] Syf1372 [facility] [place] [address] Lab Director: Reji Son DO Protein [Mass/Vol] 6.5 g/dL Normal 6.4-8.3 [facility] Comment on above: Performed By: #### C DP, MG, CP, ALCB ####[facility] Zvq[address] [facility] [place] [address] Lab Director: Reji Son DO Sodium [Moles/Vol] 137 mmol/L Normal 135-144 [facility] Comment on above: Performed By: #### C DP, MG, CP, ALCB ####[facility] Lym[address] [facility] [place] [address] [facility] Director: Reji Son DO Urea nitrogen [Mass/Vol] 16 mg/dL Normal 8-23 [facility] Comment on above: Performed By: #### C DP, MG, CP, ALCB ####[facility] Sap1803 [place] [address] Lab Director: Reji Son DO Drug Scr, Abuse, Uron 2023 Amphetamine(s),Ur Negative Normal NEG [facility] Comment on above: Result Comment: (Positive cutoff 1000 ng/mL) Performed By: #### U AX, JABIER ####[address] [address] [facility] Director: Reji Son DO Barbiturate(s),Ur Negative Normal NEG [facility] Comment on above: Result Comment: (Positive cutoff 200 ng/mL) Performed By: #### U AX, JABIER ####[facility] Rim6004 [place] [address] Lab Director: Reji Son DO Benzodiazepine(s) Negative Normal NEG [facility] Comment on above: Result Comment: (Positive cutoff 200 ng/mL) Performed By: #### U AX, JABIER ####[address] [address] Lab Director: Reji Son DO Cannabinoid(s),Ur Negative Normal NEG [facility] Comment on above: Result Comment: (Positive cutoff 50 ng/mL) Performed By: #### U AX, JABIER ####[facility] [id number] [place] [address] Lab Director: Reji Son DO Cocaine Metabolite Negative Normal NEG [facility] Comment on above: Result Comment: (Positive cutoff 300 ng/mL) Performed By: #### U AX, JABIER ####[facility] Wfh7940 [place] [address] Lab Director: Reji Son DO Fentanyl, Urine Negative Normal NEG [facility] Comment on above: Result Comment: (Positive cutoff 5 ng/ml) Performed By: #### U AX, JABIER ####[address] [address] Lab Director: Reji Son DO Interpretive Info Assay provides medical screening only. The absence of expected drug(s) and/or Normal [facility] Comment on above: Result Comment: meta bolite(s) may indicate diluted or adulterated urine, limitations of testing or timing of collection. Testing for legal purposes should be confirmed by another method. To request confirmation of test result, please call the lab within 7 days of sample submission. Performed By: #### U AX, JABIER ####[address] [address] Lab Director: Reji Son DO Methadone Ql (U) Negative Normal NEG [facility] Comment on above: Result Comment: (Positive cutoff 300 ng/mL) Performed By: #### U AX, JABIER ####[address] [address] Lab Director: Reji Son DO Opiate(s), Ur Negative Normal NEG [facility] Comment on above: Result Comment: (Positive cutoff 300 ng/mL) Performed By: #### U AX, JABIER ####[facility] [id number] [place] [address] Lab Director: Reji Son DO Oxycodone, Urine Negative Normal NEG [facility] Comment on above: Result Comment: (Positive cutoff 100 ng/mL) Performed By: #### U AX, JABIER ####[facility] [address] [place] [address] Lab Director: Reji Son DO Phencyclidine, Ur Negative Normal NEG [facility] Comment on above: Result Comment: (Positive cutoff 25 ng/mL) Performed By: #### U AX, JABIER ####[facility] Hhv1904 [place] [address] Lab Director: Reji Son DO Ethanol Alcoholon 07-18-2023 Ethanol [Mass/Vol] mg/dL Normal <10 [facility] Comment on above: Performed By: #### C DP, MG, CP, ALCB ####[facility] Rav9130 [place] [address] [facility] Director: Reji Son DO Ethanol percent <0.010 Normal [facility] Comment on above: Performed By: #### C DP, MG, CP, ALCB ####[address] [address] [facility] Director: Reji Son DO Glucose,Whole Bloodon 2023 Glucose [Mass/Vol] 126 mg/dL High 75-110 [facility] Magnesiumon 07-18-2023 Magnesium [Mass/Vol] 1.8 mg/dL Normal 1.6-2.6 [facility] Comment on above: Performed By: #### C DP, MG, CP, ALCB ####[address] [address] [facility] Director: Reji Son DO UA w/Reflex Cultureon 2023 Bilirubin, SemiQt,Ur Negative Normal NEG [facility] Comment on above: Performed By: #### U AX, JABIER ####[facility] Wae2484 [place] [address] Lab Director: Reji Son DO Blood, Urine Negative Normal NEG [facility] Comment on above: Performed By: #### U AX, JABIER ####[facility] Wpb4419 [facility] [place] [address] Lab Director: Reji Son DO Clarity (U) Clear Normal CLEAR [facility] Comment on above: Performed By: #### U AX, JABIER ####[facility] Tos7898 [place] [address] Lab Director: Reji Son DO Color (U) Yellow Normal YEL [facility] Comment on above: Performed By: #### U AX, JABIER ####[facility] Mmv9221 [place] [address] Lab Director: Reji Son DO Comment Microscopic exam not performed based on chemical results unless requested in Normal [facility] Comment on above: Result Comment: orig inal order. Performed By: #### U AX, JABIER ####[facility] [address] [place] [address] Lab Director: Reji Son DO Glucose Ql (U) Negative Normal NEG [facility] Comment on above: Performed By: #### U AX, JABIER ####[address] [place] [address] Lab Director: Reji Son DO Ketones Ql (U) TRACE Abnormal NEG [facility] Comment on above: Performed By: #### U AX, JABIER ####[facility] [id number] [place] [address] [place] [address] Lab Director: Reji Son DO Leukocyte esterase Test strip Ql (U) Negative Normal NEG [facility] Comment on above: Performed By: #### U AX, JABIER ####[facility] [address] [place] [address] Lab Director: Reji Son DO Nitrite,Ur Negative Normal NEG [facility] Comment on above: Performed By: #### U AX, JABIER ####[facility] Hme7573 [facility] [place] [address] [facility] Director: Reji Son DO PH,Ur 5.5 Normal 5.0-8.0 [facility] Comment on above: Performed By: #### U AX, JABIER ####[place] [address] [facility] [place] [address] [facility] Director: Reji Son DO Protein Ql (U) Negative Normal NEG [facility] Comment on above: Performed By: #### U AX, JABIER ####[address], [place] [phone] Director: Reji Son DO Spec. [place],Ur 1.011 Normal 1.000-1.030 [facility] Comment on above: Performed By: #### U AX, JABIER ####[facility] Khq3765 [facility].[place], [place] [address])[phone] Director: Reji Son DO Urobilinogen,Ur Normal Normal 0.0-1.0 [facility] Comment on above: Performed By: #### U AX, JABIER ####[address], [place] [address])[phone] Director: Reji Son DO Basic Metab w/rfx MGon 06-16 Anion gap [Moles/Vol] 11 mmol/L Normal 9-17 [facility] Comment on above: Performed By: #### B MPX, CDP ####[facility] [address] [place] [address].[place], [place] [address])[phone] Director: Reji Son DO Calcium [Mass/Vol] 8.6 mg/dL Normal 8.6-10.4 [facility] Comment on above: Performed By: #### B MPX, CDP ####[facility] [address] [place] [address] Lab Director: Reji Son DO Chloride [Moles/Vol] 103 mmol/L Normal 98-107 [facility] Comment on above: Performed By: #### B MPX, CDP ####[facility] [address] [facility] [place] [address] Lab Director: Reji Son DO CO2 [Moles/Vol] 23 mmol/L Normal 20-31 [facility] Comment on above: Performed By: #### B MPX, CDP ####[facility] Qge8072 [facility].[place], [place] [phone] Director: Reji Son DO Creatinine [Mass/Vol] 0.9 mg/dL Normal 0.7-1.2 [facility] Comment on above: Performed By: #### B DAVIDX, TIESHA ####[facility] Snh9860 [facility] [place] [address] Lab Director: Reji Son DO GFR/1.73 sq M.predicted among non-blacks MDRD (S/P/Bld) [Vol rate/Area] mL/min/{1.73_m2} Normal >60 [facility] Comment on above: Result Comment: These results [...] secretion. Performed By: #### B MPX, CDP ####[facility] [id number] [facility].[place], [place] [phone] Director: Reji Son DO Glucose [Mass/Vol] 181 mg/dL High 70-99 [facility] Comment on above: Performed By: #### B MPX, CDP ####[facility] Rfr9730 [facility] [place] [address] Lab Director: Reji Son DO Potassium [Moles/Vol] 4.6 mmol/L Normal 3.7-5.3 [facility] Comment on above: Performed By: #### B MPX, CDP ####[facility] Vio9404 [facility] [place] [address] lab Director: Reji Son DO Sodium [Moles/Vol] 137 mmol/L Normal 135-144 [facility] Comment on above: Performed By: #### B MPX, CDP ####[facility] Kyy4128 [facility] [place] [address] lab Director: Reji Son DO Urea nitrogen [Mass/Vol] 13 mg/dL Normal 8-23 [facility] Comment on above: Performed By: #### B MPX, CDP ####[facility] Cyh5605 [facility] [place] [address] Lab Director: Reji Son DO Basic Metabolic Panel w/ Ref melina to MGon 06-17-2023 Anion gap [Moles/Vol] 11 mmol/L 9 - 17 mmol/L [facility] Calcium [Mass/Vol] 8.6 mg/dL 8.6 - 10. 4 mg/dL [facility] Chloride [Moles/Vol] 103 mmol/L 98 - 10 7 mmol/L [facility] CO2 [Moles/Vol] 23 mmol/L 20 - 31 mmol/L [facility] Creatinine [Mass/Vol] 0.9 mg/dL 0.7 - 1.2 mg/dL [facility] GFR/1.73 sq M.predicted MDRD (S/P/Bld) [Vol rate/Area] - PINF [facility] Comment on above: These results are not [...] 181 mg/dL High 70 - 99 mg/dL [facility] Interpretation and review of laboratory results Abnormal [facility] Potassium [Moles/Vol] 4.6 mmol/L 3.7 - 5.3 mmol/L [facility] Sodium [Moles/Vol] 137 mmol/L 135 - 144 mmol/L [facility] Urea nitrogen [Mass/Vol] 13 mg/dL 8 - 23 mg/dL [facility] CBC with Auto Differentialon 06-17-2023 Basophils (Bld) [#/Vol] 0.10 10*3/uL [facility] Basophils/100 WBC (Bld) 1 % 0 - 2 % [facility] Eosinophils (Bld) [#/Vol] 0.20 10*3/uL [facility] Eosinophils/100 WBC (Bld) 2 % 0 - 4 % [facility] Erythrocyte distribution width (RBC) [Ratio] 13.6 % 11.5 - 14.9 % [facility] Hematocrit (Bld) [Volume fraction] 46.3 % 41 - 53 % [facility] Hemoglobin (Bld) [Mass/Vol] 14.9 g/dL 13.5 - 17.5 g/dL [facility] Interpretation and review of laboratory results Abnormal [facility] Lymphocytes/100 WBC (Bld) 17 % Low 24 - 44 % [facility] Lymphocytes/100 WBC (Bld) 1.30 % [facility] MCH (RBC) [Entitic mass] 29.2 pg 26 - 34 pg [facility] MCHC (RBC) [Mass/Vol] 32.1 g/dL 31 - 37 g/dL [facility] MCV (RBC) [Entitic vol] 90.9 fL 80 - 100 fL [facility] Monocytes/100 WBC (Bld) 10 % High 1 - 7 % [facility] Monocytes/100 WBC (Bld) 0.70 % [facility] Neutrophils/100 WBC (Bld) 70 % High 36 - 66 % [facility] Platelet mean volume (Bld) [Entitic vol] 7.3 fL 6.0 - 12.0 fL [facility] Platelets (Bld) [#/Vol] 343 10*3/uL [facility] RBC (Bld) [#/Vol] 5.09 10*6/uL 4.5 - 5.9 m/uL [facility] Segmented neutrophils/100 WBC (Bld) 5.30 % [facility] WBC other (Bld) [#/Vol] 7.6 [facility] CBC with Diffon 06-17-2023 Abs. Basophil 0.10 k/uL Normal 0.0-0.2 [facility] Comment on above: Performed By: #### B MPX, CDP ####[facility] Hqa1890 [place] [address] Lab Director: Reji Son DO Abs.Neutrophil (Seg) 5.30 k/uL Normal 1.3-9.1 [facility] Comment on above: Performed By: #### B MPX, CDP ####[facility] Ziw2131 [place] [address] Lab Director: Reji Son DO Basophils/100 WBC (Bld) 1 % Normal 0-2 [facility] Comment on above: Performed By: #### B MPX, CDP ####[facility] Wbh9481 [place] [address] Lab Director: Reji Son DO Eosinophils (Bld) [#/Vol] 0.20 10*3/uL Normal 0.0-0.4 [facility] Comment on above: Performed By: #### B MPX, CDP ####[facility] Ocl7016 [place] [address] Lab Director: Reji Son DO Eosinophils/100 WBC (Bld) 2 % Normal 0-4 [facility] Comment on above: Performed By: #### B MPX, CDP ####[facility] Kxc[address] [place] [address] lab Director: Reji Son DO Erythrocyte distribution width (RBC) [Ratio] 13.6 % Normal 11.5-14.9 [facility] Comment on above: Performed By: #### B MPX, CDP ####[facility] [address] [facility] [place] [address] lab Director: Reji Son DO Hematocrit (Bld) [Volume fraction] 46.3 % Normal 41-53 [facility] Comment on above: Performed By: #### B MPX, CDP ####[facility] Ezd[address] [facility] [place] [address] Lab Director: Reji Son DO Hemoglobin (Bld) [Mass/Vol] 14.9 g/dL Normal 13.5-17.5 [facility] Comment on above: Performed By: #### B MPX, CDP ####[facility] Crj[address] [facility] [place] [address] Lab Director: Reji Son DO Lymphocytes (Bld) [#/Vol] 1.30 10*3/uL Normal 1.0-4.8 [facility] Comment on above: Performed By: #### B MPX, CDP ####[facility] Rhv[address] [facility] [place] [address] Lab Director: Reji Son DO Lymphocytes/100 WBC (Bld) 17 % Low 24-44 [facility] Comment on above: Performed By: #### B MPX, CDP ####[facility] [address], [place] [phone] Director: Reji Son DO MCH (RBC) [Entitic mass] 29.2 pg Normal 26-34 [facility] Comment on above: Performed By: #### B MPX, CDP ####[facility] [address], [place] [phone])[phone] Director: Reji Son DO MCHC (RBC) [Mass/Vol] 32.1 g/dL Normal 31-37 [facility] Comment on above: Performed By: #### B MPX, CDP ####[facility] Cvj6219 [facility], [place] [phone] Director: Reji Son DO MCV (RBC) [Entitic vol] 90.9 fL Normal 80-100 [facility] Comment on above: Performed By: #### B MPX, CDP ####[facility] Jfo3367 [facility], [place] [phone] Director: Reji Son DO Monocytes (Bld) [#/Vol] 0.70 10*3/uL Normal 0.1-1.3 [facility] Comment on above: Performed By: #### B MPX, CDP ####[facility] Nau1562 [facility], [place] [phone])[phone] Director: Reji Son DO Monocytes/100 WBC (Bld) 10 % High 1-7 [facility] Comment on above: Performed By: #### B MPX, CDP ####[facility] Jjh1397 [facility] [place] [address] Lab Director: Reji Son DO Neutrophil (Seg) 70 % High 36-66 [facility] Comment on above: Performed By: #### B MPX, CDP ####[facility] Dzl[address] [facility].[place], [place] [phone] Director: Reji Son DO Platelet mean volume (Bld) [Entitic vol] 7.3 fL Normal 6.0-12.0 [facility] Comment on above: Performed By: #### B MPX, CDP ####[facility] [address], [place] [phone] Director: Reji Son DO Platelets (Bld) [#/Vol] 343 10*3/uL Normal 150-450 [facility] Comment on above: Performed By: #### B MPX, CDP ####[facility] Npa3604 [facility].[place], [place] [phone] Director: Reji Son DO RBC (Bld) [#/Vol] 5.09 10*6/uL Normal 4.5-5.9 [facility] Comment on above: Performed By: #### Tommy MPX, CDP ####[facility] Xxf4524 [facility], [place] [phone] Director: Reji Son DO WBC (Bld) [#/Vol] 7.6 10*3/uL Normal 3.5-11.0 [facility] Comment on above: Performed By: #### B MPX, CDP ####[facility] Xvh9433 [place], [place] [phone] Director: Reji Son DO Cortisolon 06-17-2023 Cortisol 20.2 ug/dL High 2.5-19.5 [facility] Comment on above: Result Comment: Cortisol Reference Range: AM 6.0-18.4 PM 2.7-10.5 Performed By: #### T SH ####[facility] Ytd4594 [place], [place] [phone] Director: Reji Son DO#### T4, CORTI ####[address] [address] Lab Director: Norberto Condon MD EEG awake and asleepon 06-16 Nash Sanders MD 06/17/2023 4:40 PM EEG REPORT CLINICAL NEUROPHYSIOLOGY LABORATORY DEPARTMENT OF NEUROLOGY [facility] Patient: Susie Boyce Age: 72 y.o. Referring [...] MD dextrose 10 % infusion IntraVENous Continuous PRRodriguez Julian MD Technical Description: This is a 21 [...] epileptiform abnormalities were seen. Nash Sanders MD [facility] [place] [facility] EEG awake and asleepOrdered By: Nash Sanders on 06-17-2023 [facility] Work Phone: Glucose,Whole Bloodon 2023 Glucose [Mass/Vol] 184 mg/dL High 75-110 [facility] Glucose [Mass/Vol] 167 mg/dL High 75-110 [facility] Glucose [Mass/Vol] 178 mg/dL High 75-110 [facility] POC Glucose Fingerstickon Glucose [Mass/Vol] 184 mg/dL High 75 - 110 mg/dL [facility] Interpretation and review of laboratory results Abnormal [facility] Glucose [Mass/Vol] 167 mg/dL High 75 - 110 mg/dL [facility] Interpretation and review of laboratory results Abnormal [facility] Glucose [Mass/Vol] 178 mg/dL High 75 - 110 mg/dL [facility] Interpretation and review of laboratory results Abnormal [facility] T4on 06-17-2023 T4 [Mass/Vol] 7.2 ug/dL 4.5 - 11.7 ug/dL [facility] TSHon 06-17-2023 TSH Qn 1.53 m[IU]/L [facility] Thyroid Stim. Horm.on 2023 Thyroid Stim. Horm. 1.53 uIU/mL Normal 0.30-5.00 [facility] Comment on above: Performed By: #### T ####[facility] Sgh8832 [facility] [place] [address] Lab Director: Reji Son DO#### T4, CORTI ####[facility] [place] [address] Lab Director: Norberto Condon MD Thyroxine T4on 06-17-2023 T4 [Mass/Vol] 7.2 ug/dL Normal 4.5-11.7 [facility] Comment on above: Performed By: #### T SH ####[facility] Qou8031 [facility] [place] [address] lab Director: Reji Son DO#### T4, CORTI ####[facility] [place], [place] [address] lab Director: Norberto Condon MD Basic Metabolic Panelon 05-29 Anion gap [Moles/Vol] 9 mmol/L 9 - 17 mmol/L [facility] Kriyari Calcium [Mass/Vol] 9.0 mg/dL 8.6 - 10. 4 mg/dL [facility] Chloride [Moles/Vol] 103 mmol/L 98 - 10 7 mmol/L [facility] CO2 [Moles/Vol] 26 mmol/L 20 - 31 mmol/L [facility] Creatinine [Mass/Vol] 0.8 mg/dL 0.7 - 1.2 mg/dL [facility] GFR/1.73 sq M.predicted MDRD (S/P/Bld) [Vol rate/Area] - PINF [facility] Comment on above: These results are not [...] [Mass/Vol] 91 mg/dL 70 - 99 mg/dL [facility] Potassium [Moles/Vol] 4.2 mmol/L 3.7 - 5.3 mmol/L [facility] Sodium [Moles/Vol] 138 mmol/L 135 - 144 mmol/L [facility] Urea nitrogen [Mass/Vol] 14 mg/dL 8 - 23 mg/dL [facility] Basic Metabolic Profon 06-15 Anion gap [Moles/Vol] 9 mmol/L Normal 9-17 [facility] Comment on above: Performed By: #### B CLEANING TECHNICIAN, CDP, BMP, TROPI ####[facility] [id number] [facility] [place] [address] Lab Director: Reji Son DO Calcium [Mass/Vol] 9.0 mg/dL Normal 8.6-10.4 [facility] Comment on above: Performed By: #### B CLEANING TECHNICIAN, CDP, BMP, TROPI ####[facility] [id number] [facility] [place] [address] Lab Director: Reji Son DO Chloride [Moles/Vol] 103 mmol/L Normal 98-107 [facility] Comment on above: Performed By: #### B CLEANING TECHNICIAN, CDP, BMP, TROPI ####[facility] [id number] [facility] [place] [address] lab Director: Reji Son DO CO2 [Moles/Vol] 26 mmol/L Normal 20-31 [facility] Comment on above: Performed By: #### B CLEANING TECHNICIAN, CDP, BMP, TROPI ####[facility] [id number] [facility] [place] [address] Lab Director: Reji Son DO Creatinine [Mass/Vol] 0.8 mg/dL Normal 0.7-1.2 [facility] Comment on above: Performed By: #### B CLEANING TECHNICIAN, CDP, BMP, TROPI ####[facility] [id number] [facility] [place] [address] Lab Director: Reji Son DO GFR/1.73 sq M.predicted among non-blacks MDRD (S/P/Bld) [Vol rate/Area] mL/min/{1.73_m2} Normal >60 [facility] Comment on above: Result Comment: These results [...] renal tubular secretion. Performed By: #### B CLEANING TECHNICIAN, CDP, BMP, TROPI ####[facility] [id number] [facility] [place] [address] Lab Director: Reji Son DO Glucose [Mass/Vol] 91 mg/dL Normal 70-99 [facility] Comment on above: Performed By: #### B CLEANING TECHNICIAN, CDP, BMP, TROPI ####[facility] [id number] [facility] [place] [address] Lab Director: Reji Son DO Potassium [Moles/Vol] 4.2 mmol/L Normal 3.7-5.3 [facility] Comment on above: Performed By: #### B CLEANING TECHNICIAN, CDP, BMP, TROPI ####[facility] [id number] [facility] [place] [address] Lab Director: Reji Son DO Sodium [Moles/Vol] 138 mmol/L Normal 135-144 [facility] Comment on above: Performed By: #### B CLEANING TECHNICIAN, CDP, BMP, TROPI ####[facility] [id number] [facility] [place] [address] Lab Director: Reji Son DO Urea nitrogen [Mass/Vol] 14 mg/dL Normal 8-23 [facility] Comment on above: Performed By: #### B CLEANING TECHNICIAN, CDP, BMP, TROPI ####[facility] [id number] [facility] [place] [address] Lab Director: Reji Son DO Brain Natri. Peptideon 06-15 Natriuretic peptide B (Bld) [Mass/Vol] 105 pg/mL Normal <300 [facility] Comment on above: Result Comment: An age-independent cutoff point of 300 pg/ml has a 98% negative predictive value excluding acute heart failure. Performed By: #### B CLEANING TECHNICIAN, CDP, BMP, TROPI ####[facility] [id number] [facility] [place] [address] Lab Director: Reji Son DO Brain Natriuretic Peptideon 06-16-2023 Natriuretic peptide B (Bld) [Mass/Vol] 105 pg/mL NINF - 300 pg/mL [facility] Comment on above: An age-independent cutoff point of 300 pg/ml has a 98% negative predictive value excluding acute heart failure. [facility] CBC with Auto Differentialon 06-16-2023 Basophils (Bld) [#/Vol] 0.00 10*3/uL [facility] Basophils/100 WBC (Bld) 1 % 0 - 2 % [facility] Eosinophils (Bld) [#/Vol] 0.20 10*3/uL [facility] Eosinophils/100 WBC (Bld) 2 % 0 - 4 % [facility] Erythrocyte distribution width (RBC) [Ratio] 14.1 % 11.5 - 14.9 % [facility] Hematocrit (Bld) [Volume fraction] 46.1 % 41 - 53 % [facility] Hemoglobin (Bld) [Mass/Vol] 15.0 g/dL 13.5 - 17.5 g/dL [facility] Interpretation and review of laboratory results Abnormal [facility] Lymphocytes/100 WBC (Bld) 14 % Low 24 - 44 % [facility] Lymphocytes/100 WBC (Bld) 1.00 % [facility] MCH (RBC) [Entitic mass] 29.5 pg 26 - 34 pg [facility] MCHC (RBC) [Mass/Vol] 32.5 g/dL 31 - 37 g/dL [facility] MCV (RBC) [Entitic vol] 90.5 fL 80 - 100 fL [facility] Monocytes/100 WBC (Bld) 9 % High 1 - 7 % [facility] Monocytes/100 WBC (Bld) 0.70 % [facility] Neutrophils/100 WBC (Bld) 74 % High 36 - 66 % [facility] Platelet mean volume (Bld) [Entitic vol] 7.4 fL 6.0 - 12.0 fL [facility] Platelets (Bld) [#/Vol] 342 10*3/uL [facility] RBC (Bld) [#/Vol] 5.09 10*6/uL 4.5 - 5.9 m/uL [facility] Segmented neutrophils/100 WBC (Bld) 5.60 % [facility] WBC other (Bld) [#/Vol] 7.5 [facility] CBC with Diffon 06-16-2023 Abs. Basophil 0.00 k/uL Normal 0.0-0.2 [facility] Comment on above: Performed By: #### B CLEANING TECHNICIAN, CDP, BMP, TROPI ####[facility] [id number] [place] [address] Lab Director: Reji Son DO Abs.Neutrophil (Seg) 5.60 k/uL Normal 1.3-9.1 [facility] Comment on above: Performed By: #### B CLEANING TECHNICIAN, CDP, BMP, TROPI ####[facility] [id number] [place] [address] Lab Director: Reji Son DO Basophils/100 WBC (Bld) 1 % Normal 0-2 [facility] Comment on above: Performed By: #### B CLEANING TECHNICIAN, CDP, BMP, TROPI ####[facility] [id number] [place] [address] Lab Director: Reji Son DO Eosinophils (Bld) [#/Vol] 0.20 10*3/uL Normal 0.0-0.4 [facility] Comment on above: Performed By: #### B CLEANING TECHNICIAN, CDP, BMP, TROPI ####[facility] [id number] [facility] [place] [address] [facility] Director: Reji Son DO Eosinophils/100 WBC (Bld) 2 % Normal 0-4 [facility] Comment on above: Performed By: #### B CLEANING TECHNICIAN, CDP, BMP, TROPI ####[facility] [id number] [facility] [place] [address] [facility] Director: Reji Son DO Erythrocyte distribution width (RBC) [Ratio] 14.1 % Normal 11.5-14.9 [facility] Comment on above: Performed By: #### B CLEANING TECHNICIAN, CDP, BMP, TROPI ####[facility] [id number] [facility] [place] [address] [facility] Director: Reji Son DO Hematocrit (Bld) [Volume fraction] 46.1 % Normal 41-53 [facility] Comment on above: Performed By: #### B CLEANING TECHNICIAN, CDP, BMP, TROPI ####[place] [id number] [facility] [place] [address] [facility] Director: Reji Son DO Hemoglobin (Bld) [Mass/Vol] 15.0 g/dL Normal 13.5-17.5 [facility] Comment on above: Performed By: #### B CLEANING TECHNICIAN, CDP, BMP, TROPI ####[facility] [id number] [place] [address].[place] [address] Lab Director: Rjei Son DO Lymphocytes (Bld) [#/Vol] 1.00 10*3/uL Normal 1.0-4.8 [facility] Comment on above: Performed By: #### B CLEANING TECHNICIAN, CDP, BMP, TROPI ####[facility] [id number] [place] [address] Lab Director: Reji Son DO Lymphocytes/100 WBC (Bld) 14 % Low 24-44 [facility] Comment on above: Performed By: #### B CLEANING TECHNICIAN, CDP, BMP, TROPI ####[facility] [id number] [facility], [place] [phone] Director: Reji Son DO MCH (RBC) [Entitic mass] 29.5 pg Normal 26-34 [facility] Comment on above: Performed By: #### B CLEANING TECHNICIAN, CDP, BMP, TROPI ####[facility] [id number] [facility], [place] [phone] Director: Reji Son DO MCHC (RBC) [Mass/Vol] 32.5 g/dL Normal 31-37 [facility] Comment on above: Performed By: #### B CLEANING TECHNICIAN, CDP, BMP, TROPI ####[facility] [id number] [facility] [place] [address] Lab Director: Reji Son DO MCV (RBC) [Entitic vol] 90.5 fL Normal 80-100 [facility] Comment on above: Performed By: #### B CLEANING TECHNICIAN, CDP, BMP, TROPI ####[facility] [id number] [facility] [place] [address] Lab Director: Reji Son DO Monocytes (Bld) [#/Vol] 0.70 10*3/uL Normal 0.1-1.3 [facility] Comment on above: Performed By: #### B CLEANING TECHNICIAN, CDP, BMP, TROPI ####[facility] [id number] [facility] [place] [address] Lab Director: Reji Son DO Monocytes/100 WBC (Bld) 9 % High 1-7 [facility] Comment on above: Performed By: #### B CLEANING TECHNICIAN, CDP, BMP, TROPI ####[facility] [id number], [place] [phone] Director: Reji Son DO Neutrophil (Seg) 74 % High 36-66 [facility] Comment on above: Performed By: #### B CLEANING TECHNICIAN, CDP, BMP, TROPI ####[facility] [id number], [place] [phone] Director: Reji Son DO Platelet mean volume (Bld) [Entitic vol] 7.4 fL Normal 6.0-12.0 [facility] Comment on above: Performed By: #### B CLEANING TECHNICIAN, CDP, BMP, TROPI ####[facility] [id number] [facility], [place] [phone] Director: Reji Son DO Platelets (Bld) [#/Vol] 342 10*3/uL Normal 150-450 [facility] Comment on above: Performed By: #### B CLEANING TECHNICIAN, CDP, BMP, TROPI ####[facility] [id number] [facility], [place] [phone] Director: Reji Son DO RBC (Bld) [#/Vol] 5.09 10*6/uL Normal 4.5-5.9 [facility] Comment on above: Performed By: #### B CLEANING TECHNICIAN, CDP, BMP, TROPI ####[facility] [id number] [facility].[place], [place] [phone] Director: Reji Son DO WBC (Bld) [#/Vol] 7.5 10*3/uL Normal 3.5-11.0 [facility] Comment on above: Performed By: #### B CLEANING TECHNICIAN, CDP, BMP, TROPI ####[facility] Urw2628 [facility] [facility], [place] [phone] Director: Reji Son DO Glucose,Whole Bloodon 2023 Glucose [Mass/Vol] 171 mg/dL High 75-110 [facility] Glucose [Mass/Vol] 92 mg/dL Normal 75-110 [facility] POC Glucose Fingerstickon Glucose [Mass/Vol] 171 mg/dL High 75 - 110 mg/dL [facility] Interpretation and review of laboratory results Abnormal [facility] Glucose [Mass/Vol] 92 mg/dL 75 - 110 mg/dL [facility] Portable XR Chest AP single viewon 06-16-2023 No acute airspace disease identified. [facility] EXAMINATION: ONE XRAY VIEW OF THE CHEST 06/16/2023 11:47 am COMPARISON: None. HISTORY: ORDERING SYSTEM PROVIDED HISTORY: chest pain, syncope TECHNOLOGIST PROVIDED HISTORY: chest pain, syncope Reason for Exam: chest pain, syncope FINDINGS: The cardiomediastinal silhouette is within normal limits. There is no consolidation, pneumothorax or evidence for edema. No evidence for effusion. No acute osseous abnormality is identified. [facility] Betito Williamson MD - [...] identified. IMPRESSION: No acute airspace disease identified. [facility] Radiology Study observation (narrative) [facility] Portable XR Chest AP single viewOrdered By: Betito Williamson on 06-16-2023 [facility] Work Phone: Troponinon 06-16-2023 Troponin I.cardiac High sensitivity method [Mass/Vol] 15 ng/L 0 - 22 ng/L [facility] Comment on above: High Sensitivity Tro ponin values cannot be compared with other Troponin methodologies. [facility] Troponin, High Sens 15 ng/L Normal 0-22 [facility] Comment on above: Result Comment: High Sensitivity Troponin values cannot be compared with other Troponin methodologies. Performed By: #### T ROPI ####[facility] Top66[address] [place] [address] Lab Director: Reji Son DO Troponin I.cardiac High sensitivity method [Mass/Vol] 17 ng/L 0 - 22 ng/L [facility] Comment on above: High Sensitivity Tro ponin values cannot be compared with other Troponin methodologies. [facility] Troponin, High Sens 17 ng/L Normal 0-22 [facility] Comment on above: Result Comment: High Sensitivity Troponin values cannot be compared with other Troponin methodologies. Performed By: #### B CLEANING TECHNICIAN, CDP, BMP, TROPI ####[facility] [id number] [place] [address] [facility] Director: Reji Son DO XR CHEST PORTABLEon [...] Betito Williamson MD 06/16/23 Final result Normal [facility] BASIC METABOLIC PANLon 04-20 Anion gap [Moles/Vol] 9 mmol/L Normal 5-15 [facility] Comment on above: Performed By: #### C BCA, BMP, 3040-3, LIVR #### [facility] ([id number]) [address], [address] [place] [address] Calcium [Mass/Vol] 8.6 mg/dL Normal 8.5-10.5 [facility] Comment on above: Performed By: #### C BCA, BMP, 3040-3, LIVR #### [facility] ([id number]) [address], [address] [place] [address] Chloride [Moles/Vol] 104 mmol/L Normal 98-109 [facility] Comment on above: Performed By: #### C BCA, BMP, 3040-3, LIVR #### [facility] ([id number]) [address], [address] [place] [address] CO2 [Moles/Vol] 24 mmol/L Normal 22-32 [facility] Comment on above: Performed By: #### C BCA, BMP, 3040-3, LIVR #### [facility] ([id number]) [address], [facility] [address] [place] [address] Creatinine [Mass/Vol] 0.87 mg/dL Normal 0.60-1.30 [facility] Comment on above: Result Comment: METH OD TRACEABLE TO IDMS STANDARD Performed By: #### C MARIA ISABEL, BMP, 3040-3, LIVR #### [facility] ([id number]) [address], [address] [place] [address] eGFR (CKD-EPI) NON-RACE DEPENDENT >90 Normal >59 [facility] Comment on above: Result Comment: Reported eGFR is based on the CKD-EPI 2020 equation that does not use a race coefficient. Performed By: #### C BCA, BMP, 3040-3, LIVR #### [facility] ([id number]) [address], [address] [place] [address] Glucose [Mass/Vol] 178 mg/dL High 65-99 [facility] Comment on above: Performed By: #### C BCA, BMP, 3040-3, LIVR #### [facility] ([id number]) [address], [address] [place] [address] Potassium [Moles/Vol] 4.3 mmol/L Normal 3.5-5.0 [facility] Comment on above: Performed By: #### C DARREN NICOLAS, 3039-04, LIVR #### [facility] ([id number]) [address], [address] [place] [address] Sodium [Moles/Vol] 137 mmol/L Normal 134-146 [facility] Comment on above: Performed By: #### C DARREN NICOLAS, 3039-04, LIVR #### [facility] ([id number]) [address], [address] [place] [address] Urea nitrogen [Mass/Vol] 16 mg/dL Normal 5-27 [facility] Comment on above: Performed By: #### C DARREN NICOLAS, 3039-04, LIVR #### [facility] ([id number]) [address], [address] [place] [address] CBC AND AUTO DIFFon 04-20-19 24 ABSOLUTE BASOPHIL 0.1 X10E9/L Normal 0.0-0.2 [facility] Comment on above: Performed By: #### C DARREN NICOLAS, 3039-04, LIVR #### [facility] ([id number]) [address], [address] [place] [address] ABSOLUTE NEUTROPHIL 9.9 X10E9/L High 1.5-6.6 [facility] Comment on above: Performed By: #### C DARREN NICOLAS, 3039-04, LIVR #### [facility] ([id number]) [address], [address] [place] [address] Basophils/100 WBC (Bld) 0.5 % Normal [facility] Comment on above: Performed By: #### C DARREN NICOLAS, 3, LIVR #### [facility] ([id number]) [address], [address] [place] [address] Eosinophils (Bld) [#/Vol] 0.2 10*3/uL Normal 0.0-0.4 [facility] Comment on above: Performed By: #### C DARREN NICOLAS, 3039-3, LIVR #### [facility] ([id number]) [address], [address] [place] [address] Eosinophils/100 WBC (Bld) 1.7 % Normal [facility] Comment on above: Performed By: #### C DARREN NICOLAS, 3039-3, LIVR #### [facility] ([id number]) [address], [facility] [address] [place] [address] Erythrocyte distribution width (RBC) [Ratio] 13.4 % Normal 11.5-15.0 [facility] Comment on above: Performed By: #### C DARREN NICOLAS, 3, LIVR #### [facility] ([id number]) [address], [facility] [address] [place] [address] Hematocrit (Bld) [Volume fraction] 46.4 % Normal 39-49 [facility] Comment on above: Performed By: #### C DARREN NICOLAS, 3039-04, LIVR #### [facility] ([id number]) [address], [facility] [address] [place] [address] Hemoglobin (Bld) [Mass/Vol] 15.6 g/dL Normal 13.0-17.0 [facility] Comment on above: Performed By: #### C DARREN NICOLAS, 3, LIVR #### [facility] ([id number]) [address], [facility] [address] [place] [address] Lymphocytes (Bld) [#/Vol] 1.5 10*3/uL Normal 1.0-3.5 [facility] Comment on above: Performed By: #### C MARIA ISABEL, BMP, 0-3, LIVR #### [facility] ([id number]) [address], [facility] [address] [place] [address] Lymphocytes/100 WBC (Bld) 12.3 % Normal [facility] Comment on above: Performed By: #### C MARIA ISABEL BMP, 0-3, LIVR #### [facility] ([id number]) [address], [address] [place] [address] MCH (RBC) [Entitic mass] 29.8 pg Normal 27-34 [facility] Comment on above: Performed By: #### C MARIA ISABEL BMP, 0-3, LIVR #### [facility] ([id number]) [address], [address] [place] [address] MCHC (RBC) [Mass/Vol] 33.6 g/dL Normal 32-36 [facility] Comment on above: Performed By: #### C MARIA ISABEL, BMP, 3039-3, LIVR #### [facility] ([id number]) [address], [facility] [address] [place] [address] MCV (RBC) [Entitic vol] 89 fL Normal 80-100 [facility] Comment on above: Performed By: #### C MARIA ISABEL, BMP, 3039-3, LIVR #### [facility] ([id number]) [address], [address] [place] [address] Monocytes (Bld) [#/Vol] 0.9 10*3/uL Normal 0-0.9 [facility] Comment on above: Performed By: #### C MARIA ISABEL BMP, 0-3, LIVR #### [facility] ([id number]) [address], [facility] [address] [place] [address] Monocytes/100 WBC (Bld) 7.0 % Normal [facility] Comment on above: Performed By: #### C MARIA ISABEL, BMP, 0-3, LIVR #### [facility] ([id number]) [address], [address] [place] [address] Neutrophils/100 WBC (Bld) 78.5 % Normal [facility] Comment on above: Performed By: #### C MARIA ISABEL, BMP, 0-3, LIVR #### [facility] ([id number]) [address], [address] [place] [address] Platelet mean volume (Bld) [Entitic vol] 7.4 fL Normal 7-12 [facility] Comment on above: Performed By: #### C MARIA ISABEL, BMP, 0-3, LIVR #### [facility] ([id number]) [address], [address] [place] [address] Platelets (Bld) [#/Vol] 442 10*3/uL Normal 150-450 [facility] Comment on above: Performed By: #### C MARIA ISABEL, BMP, 3039-3, LIVR #### [facility] ([id number]) [address], [address] [place] [address] RBC COUNT 5.23 X10E12/L Normal 4.10-5.70 [facility] Comment on above: Performed By: #### C MARIA ISABEL, BMP, 0-3, LIVR #### [facility] ([id number]) [address], [address] [place] [address] WBC (Bld) [#/Vol] 12.5 10*3/uL High 4.0-11.0 [facility] Comment on above: Performed By: #### C MARIA ISABEL, BMP, 0-3, LIVR #### [facility] ([id number]) [address], [address] [place] [address] Glucose Glucometer (BldC) [M ass/Vol]on 04-20-2023 Glucose [Mass/Vol] 269 mg/dL High 65-99 [facility] Glucose [Mass/Vol] 162 mg/dL High 65-99 [facility] BASIC METABOLIC PANLon 04-19 Anion gap [Moles/Vol] 12 mmol/L Normal 5-15 [facility] Comment on above: Performed By: #### C BCA, BMP, 3040-3, LIVR #### [facility] ([id number]) [address], [address] [place] [address] Calcium [Mass/Vol] 9.2 mg/dL Normal 8.5-10.5 [facility] Comment on above: Performed By: #### C BCA, BMP, 3040-3, LIVR #### [facility] ([id number]) [address], [facility] [address] [place] [address] Chloride [Moles/Vol] 103 mmol/L Normal 98-109 [facility] Comment on above: Performed By: #### C BCA, BMP, 3040-3, LIVR #### [facility] ([id number]) [address], [facility] [address] [place] [address] CO2 [Moles/Vol] 25 mmol/L Normal 22-32 [facility] Comment on above: Performed By: #### C BCA, BMP, 3040-3, LIVR #### [facility] ([id number]) [address], [facility] [address] [place] [address] Creatinine [Mass/Vol] 0.93 mg/dL Normal 0.60-1.30 [facility] Comment on above: Result Comment: METH OD TRACEABLE TO IDMS STANDARD Performed By: #### C BCA, BMP, 3040-3, LIVR #### [facility] ([id number]) [address] [address] [place] [address] GFR/1.73 sq M.predicted among non-blacks MDRD (S/P/Bld) [Vol rate/Area] 87 mL/min/{1.73_m2} Normal >59 [facility] Comment on above: Result Comment: Reported eGFR is based on the CKD-EPI 2020 equation that does not use a race coefficient. Performed By: #### C BCA, BMP, 3040-3, LIVR #### [facility] ([id number]) [address], [address] [place] [address] Glucose [Mass/Vol] 129 mg/dL High 65-99 [facility] [facility] Comment on above: Performed By: #### C MARIA ISABEL BMP, 3040-3, LIVR #### [facility] ([id number]) [address], [address] [place] [address] Potassium [Moles/Vol] 3.8 mmol/L Normal 3.5-5.0 [facility] Comment on above: Performed By: #### C MARIA ISABEL, BMP, 0-3, LIVR #### [facility] ([id number]) [address], [address] [place] [address] Sodium [Moles/Vol] 140 mmol/L Normal 134-146 [facility] Comment on above: Performed By: #### C MARIA ISABEL, BMP, 3039-3, LIVR #### [facility] ([id number]) [address], [address] [place] [address] Urea nitrogen [Mass/Vol] 14 mg/dL Normal 5-27 [facility] Comment on above: Performed By: #### C BCA, BMP, 3039-3, LIVR #### [facility] ([id number]) [address], [facility] [address] [place] [address] CBC AND AUTO DIFFon 04-19-19 24 ABSOLUTE BASOPHIL 0.0 X10E9/L Normal 0.0-0.2 [facility] Comment on above: Performed By: #### C BCA, BMP, 3040-3, LIVR #### [facility] ([id number]) [address] [address] [place] [address] ABSOLUTE NEUTROPHIL 10.0 X10E9/L High 1.5-6.6 [facility] Comment on above: Performed By: #### C BCA, BMP, 3040-3, LIVR #### [facility] ([id number]) [address], [address] [place] [address] Basophils/100 WBC (Bld) 0.2 % Normal [facility] Comment on above: Performed By: #### C MARIA ISABEL BMP, 3039-3, LIVR #### [facility] ([id number]) [address], [address] [place] [address] Eosinophils (Bld) [#/Vol] 0.2 10*3/uL Normal 0.0-0.4 [facility] Comment on above: Performed By: #### C MARIA ISABEL, BMP, 3039-3, LIVR #### [facility] ([id number]) [address], [address] [place] [address] Eosinophils/100 WBC (Bld) 1.4 % Normal [facility] Comment on above: Performed By: #### C MARIA ISABEL, BMP, 3039-3, LIVR #### [facility] ([id number]) [address], [address] [place] [address] Erythrocyte distribution width (RBC) [Ratio] 13.4 % Normal 11.5-15.0 [facility] Comment on above: Performed By: #### C MARIA ISABEL, BMP, 3039-3, LIVR #### [facility] ([id number]) [address], [facility] [address] [place] [address] Hematocrit (Bld) [Volume fraction] 46.3 % Normal 39-49 [facility] Comment on above: Performed By: #### C BCA, BMP, 0-3, LIVR #### [facility] ([id number]) [address], [address] [place] [address] Hemoglobin (Bld) [Mass/Vol] 15.6 g/dL Normal 13.0-17.0 [facility] Comment on above: Performed By: #### C BCA, BMP, 3040-3, LIVR #### [facility] ([id number]) [address], [address] [place] [address] Lymphocytes (Bld) [#/Vol] 1.7 10*3/uL Normal 1.0-3.5 [facility] Comment on above: Performed By: #### C MARIA ISABEL, BMP, 0-3, LIVR #### [facility] ([id number]) [address], [facility] [address] [place] [address] Lymphocytes/100 WBC (Bld) 13.3 % Normal [facility] Comment on above: Performed By: #### C MARIA ISABEL, BMP, 3039-3, LIVR #### [facility] ([id number]) [address], [facility] [address] [place] [address] MCH (RBC) [Entitic mass] 30.1 pg Normal 27-34 [facility] Comment on above: Performed By: #### C MARIA ISABEL, BMP, 3039-3, LIVR #### [facility] ([id number]) [address], [address] [place] [address] MCHC (RBC) [Mass/Vol] 33.7 g/dL Normal 32-36 [facility] Comment on above: Performed By: #### C MARIA ISABEL, BMP, 3039-3, LIVR #### [facility] ([id number]) [address], [address] [address] MCV (RBC) [Entitic vol] 89 fL Normal 80-100 [facility] Comment on above: Performed By: #### C MARIA ISABEL, BMP, 0-3, LIVR #### [facility] ([id number]) [address], [facility] [address] [place] [address] Monocytes (Bld) [#/Vol] 1.0 10*3/uL High 0-0.9 [facility] Comment on above: Performed By: #### C MARIA ISABEL, BMP, 0-3, LIVR #### [facility] ([id number]) [address], [address] [place] [address] Monocytes/100 WBC (Bld) 7.9 % Normal [facility] Comment on above: Performed By: #### C MARIA ISABEL, BMP, 3040-3, LIVR #### [facility] ([id number]) [address], [facility] [address] [place] [address] Neutrophils/100 WBC (Bld) 77.2 % Normal [facility] Comment on above: Performed By: #### C MARIA ISABEL, BMP, 3040-3, LIVR #### [facility] ([id number]) [address], [address] [place] [address] Platelet mean volume (Bld) [Entitic vol] 7.2 fL Normal 7-12 [facility] Comment on above: Performed By: #### C MARIA ISABEL, BMP, 3040-3, LIVR #### [facility] ([id number]) [address], [address] [place] [address] Platelets (Bld) [#/Vol] 470 10*3/uL High 150-450 [facility] Comment on above: Performed By: #### C MARIA ISABEL, BMP, 3040-3, LIVR #### [facility] ([id number]) [address] [address] [place] [address] RBC COUNT 5.20 X10E12/L Normal 4.10-5.70 [facility] Comment on above: Performed By: #### C MARIA ISABEL, BMP, 3040-3, LIVR #### [facility] ([id number]) [address], [address] [place] [address] WBC (Bld) [#/Vol] 12.9 10*3/uL High 4.0-11.0 [facility] Comment on above: Performed By: #### C MARIA ISABEL, BMP, 3040-3, LIVR #### [facility] ([id number]) [address] [place] [address], [address] [place] [address] Glucose Glucometer (BldC) [M ass/Vol]on 04-19-2023 Glucose [Mass/Vol] 232 mg/dL High 65-99 [facility] Glucose [Mass/Vol] 123 mg/dL High 65-99 [facility] Glucose [Mass/Vol] 129 mg/dL High 65-99 [facility] Surgical Pathologyon 024 Surgical Pathology Normal [facility] Comment on above: Result Comment: [facility] [address] [place] [address] Surgical Pathology Consultation Patient Name:SUSIE BOYCE:1950 (Age: 72)Gender:MTaken:4Reported:04/21/2023hysician(s):Andrzej Fine MD ( )Copy To: Rec. #:[id number]: #[id number] Final Pathologic Diagnosis 1. Cecal colon polyp: Tubular adenoma. 2. Colon, random biopsy: Hyperplastic polyp fragments. 3. Ascending colon polyp: Tubular adenoma. 4. Descending colon polyp: Tubular adenoma. Report Electronically Signed Out st04/21/2023Lorin Campos MD Interpretation performed at [facility], [address] [place] [address], License number: [id number]. Clinical History Melena. 2. Rule out microscopic colitis. Gross Description 1. Received in formalin labeled [facility], #1: Cecal colon polyp are 2 lockett bits of soft tissue, each 0.3 cm in greatest dimension. Filtered and submitted in a single cassette. (1, ns, [id number], m7) MG 2. Received in formalin labeled [facility], #2: Random colon biopsy rule out microscopic colitis are 8 lockett bits/strips of soft tissue, ranging from 0.2-0.7 cm in greatest dimension. Filtered and submitted in a single cassette. (1, ns, [id number], m7) MG 3. Received in formalin labeled [facility], #3: Ascending colon polyp are 4 lockett bits/strips of soft tissue, ranging from 0.1-0.6 cm in greatest dimension. Filtered and submitted in a single cassette. (1, ns, [id number], m7) MG 4. Received in formalin labeled [facility], #4: Descending colon polyp are 3 lockett bits of soft tissue, ranging from 0.4-0.5 cm in greatest dimension. Filtered and submitted in a single cassette. (1, ns, [id number], m7) MG mjg/04/19/2023EAK Specimen(s) Received 1: Cecal colon polyp 2: Colon, random biopsy 3: Ascending colon polyp 4: Descending colon polyp Fee Codes(s): 1; 53515 2; 35548 3; 86506 4; 21332 BASIC METABOLIC PANLon 04-18 Anion gap [Moles/Vol] 7 mmol/L Normal 5-15 [facility] Comment on above: Performed By: #### C BCA, BMP, 3040-3, LIVR #### [facility] ([id number]) [address], [address] [place] [address] Calcium [Mass/Vol] 8.8 mg/dL Normal 8.5-10.5 [facility] Comment on above: Performed By: #### C BCA, BMP, 3040-3, LIVR #### [facility] ([id number]) [address], [address] [place] [address] Chloride [Moles/Vol] 102 mmol/L Normal 98-109 [facility] Comment on above: Performed By: #### C BCA, BMP, 3040-3, LIVR #### [facility] ([id number]) [address], [address] [place] [address] CO2 [Moles/Vol] 29 mmol/L Normal 22-32 [facility] Comment on above: Performed By: #### C BCA, BMP, 3040-3, LIVR #### [facility] ([id number]) [address], [address] [place] [address] Creatinine [Mass/Vol] 0.90 mg/dL Normal 0.60-1.30 [facility] Comment on above: Result Comment: METH OD TRACEABLE TO IDMS STANDARD Performed By: #### C BCA, BMP, 3040-3, LIVR #### [facility] ([id number]) [address], [facility] [address] [place] [address] eGFR (CKD-EPI) NON-RACE DEPENDENT >90 Normal >59 [facility] Comment on above: Result Comment: Reported eGFR is based on the CKD-EPI 2020 equation that does not use a race coefficient. Performed By: #### C BCA, BMP, 3040-3, LIVR #### [facility] ([id number]) [address], [address] [place] [address] Glucose [Mass/Vol] 146 mg/dL High 65-99 [facility] Comment on above: Performed By: #### C BCA, BMP, 3040-3, LIVR #### [facility] ([id number]) [address], [address] [place] [address] Potassium [Moles/Vol] 3.9 mmol/L Normal 3.5-5.0 [facility] Comment on above: Performed By: #### C BCA, BMP, 3040-3, LIVR #### [facility] ([id number]) [address], [address] [place] [address] Sodium [Moles/Vol] 138 mmol/L Normal 134-146 [facility] Comment on above: Performed By: #### C BCA, BMP, 3040-3, LIVR #### [facility] ([id number]) [address] [address] [place] [address] Urea nitrogen [Mass/Vol] 15 mg/dL Normal 5-27 [facility] Comment on above: Performed By: #### C BCA, BMP, 3040-3, LIVR #### [facility] ([id number]) [address], [address] [place] [address] C DIFFICILE BY PCRon 024 C. difficile toxin genes EVA+probe Ql (Stl) TOXIGENIC C DIFF Negative (qualifier value) 027 NAP1 Negative (qualifier value) Normal PRNEG [facility] Comment on above: Performed By: #### C DARREN NICOLAS, 3, LIVR #### [facility] ([id number]) [address], [address] [place] [address] CBC AND AUTO DIFFon 04-18-19 24 ABSOLUTE BASOPHIL 0.1 X10E9/L Normal 0.0-0.2 [facility] Comment on above: Performed By: #### DARREN Springer BCA, 3, LIVR #### [facility] ([id number]) [address], [address] [place] [address] ABSOLUTE NEUTROPHIL 10.0 X10E9/L High 1.5-6.6 [facility] Comment on above: Performed By: #### DARREN Springer BCA, 3, LIVR #### [facility] ([id number]) [address], [address] [place] [address] Basophils/100 WBC (Bld) 0.8 % Normal [facility] Comment on above: Performed By: #### C DARREN NICOLAS, 3, LIVR #### [facility] ([id number]) [address], [address] [place] [address] Eosinophils (Bld) [#/Vol] 0.2 10*3/uL Normal 0.0-0.4 [facility] Comment on above: Performed By: #### C DARREN NICOLAS, 3039-3, LIVR #### [facility] ([id number]) [address], [address] [place] [address] Eosinophils/100 WBC (Bld) 1.4 % Normal [facility] Comment on above: Performed By: #### C MARIA ISABEL BMP, 3039-04, LIVR #### [facility] ([id number]) [address] [address] [place] [address] Erythrocyte distribution width (RBC) [Ratio] 13.2 % Normal 11.5-15.0 [facility] Comment on above: Performed By: #### C MARIA ISABEL BMP, 3, LIVR #### [facility] ([id number]) [address] [address] [place] [address] Hematocrit (Bld) [Volume fraction] 43.1 % Normal 39-49 [facility] Comment on above: Performed By: #### C MARIA ISABEL, BMP, 3039-04, LIVR #### [facility] ([id number]) [address], [facility] [address] [place] [address] Hemoglobin (Bld) [Mass/Vol] 14.7 g/dL Normal 13.0-17.0 [facility] Comment on above: Performed By: #### C MARIA ISABEL, BMP, 3039-04, LIVR #### [facility] ([id number]) [address] [address] Lymphocytes (Bld) [#/Vol] 1.7 10*3/uL Normal 1.0-3.5 [facility] Comment on above: Performed By: #### C MARIA ISABEL, BMP, 3039-3, LIVR #### [facility] ([id number]) [address], [facility] [address] [place] [address] Lymphocytes/100 WBC (Bld) 13.1 % Normal [facility] Comment on above: Performed By: #### C MARIA ISABEL, BMP, 3, LIVR #### [facility] ([id number]) [address], [facility] [address] [place] [address] MCH (RBC) [Entitic mass] 30.2 pg Normal 27-34 [facility] Comment on above: Performed By: #### C DARREN NICOLAS, 3039-04, LIVR #### [facility] ([id number]) [address], [address] [place] [address] MCHC (RBC) [Mass/Vol] 34.1 g/dL Normal 32-36 [facility] Comment on above: Performed By: #### C MARIA ISABEL BMP, 3039-04, LIVR #### [facility] ([id number]) [address], [facility] [address] [place] [address] MCV (RBC) [Entitic vol] 89 fL Normal 80-100 [facility] Comment on above: Performed By: #### C DARREN NICOLAS, 3039-04, LIVR #### [facility] ([id number]) [address], [facility] [address] [place] [address] Monocytes (Bld) [#/Vol] 1.0 10*3/uL High 0-0.9 [facility] Comment on above: Performed By: #### C DARREN NICOLAS, 3039-04, LIVR #### [facility] ([id number]) [address], [address] [place] [address] Monocytes/100 WBC (Bld) 7.5 % Normal [facility] Comment on above: Performed By: #### C DARREN NICOLAS, 3039-04, LIVR #### [facility] ([id number]) [address], [facility] [address] [place] [address] Neutrophils/100 WBC (Bld) 77.2 % Normal [facility] Comment on above: Performed By: #### C MARIA ISABEL BMP, 3, LIVR #### [facility] ([id number]) [address], [address] [place] [address] Platelet mean volume (Bld) [Entitic vol] 7.4 fL Normal 7-12 [facility] Comment on above: Performed By: #### C MARIA ISABEL, [facility], 3040-3, LIVR #### [facility] ([id number]) [address], [address] [place] [address] Platelets (Bld) [#/Vol] 446 10*3/uL Normal 150-450 [facility] Comment on above: Performed By: #### C MARIA ISABEL, [facility], 3040-3, LIVR #### [facility] ([id number]) [address], [facility] [address] [place] [address] RBC COUNT 4.87 X10E12/L Normal 4.10-5.70 [facility] Comment on above: Performed By: #### C MARIA ISABEL, [facility], 3040-3, LIVR #### [facility] ([id number]) [address], [facility] [address] [place] [address] WBC (Bld) [#/Vol] 12.9 10*3/uL High 4.0-11.0 [facility] Comment on above: Performed By: #### C MARIA ISABEL, [facility], 3040-3, LIVR #### [facility] ([id number]) [address], [facility] [address] [place] [address] GI PANELon 04-18-2023 Gastrointestinal pathogens DNA and [...] SAPOVIRUS Not detected (qualifier value) Normal NDET [facility] Comment on above: Performed By: #### C BCA, BMP, 3040-3, LIVR #### [facility] ([id number]) [address] [place] [address] [address] [place] [address] Glucose Glucometer (BldC) [M ass/Vol]on 04-18-2023 Glucose [Mass/Vol] 164 mg/dL High 65-99 [facility] Glucose [Mass/Vol] 146 mg/dL High 65-99 [facility] Glucose [Mass/Vol] 145 mg/dL High 65-99 [facility] Glucose [Mass/Vol] 161 mg/dL High 65-99 [facility] Surgical Pathologyon 024 Surgical Pathology Normal [facility] Comment on above: Result Comment: [facility] [address] [place] [address] Surgical Pathology Consultation Patient Name:SUSIE BOYCE:1950 (Age: 72)Gender:MTaken:4Reported:04/20/2023hysician(s):Andrzej Fine MD ( )Copy To: Rec. #:[id number]: #[id number] Final Pathologic Diagnosis 1. Duodenum biopsy: Duodenal mucosa with no specific abnormalities. Negative for villous blunting, atypia, or malignancy. Negative for evidence of celiac disease. 2. Gastric biopsy: Mild chronic gastritis. Negative for helicobacter organisms on routine H&E examination. Negative for dysplasia or malignancy. Report Electronically Signed Out 04/20/2023Lorin Campos MD Interpretation performed at [facility], [address] [place] [address], License number: [id number]. Clinical History Melena. 1. R/O celiac 2. H pylori screening. Gross Description 1. Received in formalin labeled [facility], #1: Duodenum biopsy R/O celiac are 6 lockett bits of soft tissue, ranging from 0.2-0.4 cm in greatest dimension. Filtered and submitted in a single cassette. (1, ns, [id number], m7) MG 2. Received in formalin labeled [facility], #2: Gastric biopsy are 4 lockett bits of soft tissue, ranging from 0.1-0.4 cm in greatest dimension. Filtered and submitted in a single cassette. (1, ns, [id number], m7) MG mjg//GR Specimen(s) Received 1: Duodenum biopsy 2: Gastric biopsy Fee Codes(s): 1; 18259 2; 32344 BASIC METABOLIC PANLon 04-17 Anion gap [Moles/Vol] 9 mmol/L Normal 5-15 [facility] Comment on above: Performed By: #### C BCA, BMP, 3040-3, LIVR #### [facility] ([id number]) [address], [address] [place] [address] Calcium [Mass/Vol] 8.7 mg/dL Normal 8.5-10.5 [facility] Comment on above: Performed By: #### C BCA, BMP, 3040-3, LIVR #### [facility] ([id number]) [address], [address] [place] [address] Chloride [Moles/Vol] 104 mmol/L Normal 98-109 [facility] Comment on above: Performed By: #### C BCA, BMP, 3040-3, LIVR #### [facility] ([id number]) [address], [address] [place] [address] CO2 [Moles/Vol] 25 mmol/L Normal 22-32 [facility] Comment on above: Performed By: #### C BCA, BMP, 3040-3, LIVR #### [facility] ([id number]) [address], [address] [place] [address] Creatinine [Mass/Vol] 0.77 mg/dL Normal 0.60-1.30 [facility] Comment on above: Result Comment: METH OD TRACEABLE TO IDMS STANDARD Performed By: #### C BCA BMP, 3040-3, LIVR #### [facility] ([id number]) [address], [address] [place] [address] eGFR (CKD-EPI) NON-RACE DEPENDENT >90 Normal >59 [facility] Comment on above: Result Comment: Reported eGFR is based on the CKD-EPI 2020 equation that does not use a race coefficient. Performed By: #### C BCA BMP, 3040-3, LIVR #### [facility] ([id number]) [address], [address] [place] [address] Glucose [Mass/Vol] 195 mg/dL High 65-99 [facility] Comment on above: Performed By: #### C BCA, BMP, 3040-3, LIVR #### [facility] ([id number]) [address] [address] [place] [address] Potassium [Moles/Vol] 3.8 mmol/L Normal 3.5-5.0 [facility] Comment on above: Performed By: #### C BCA, BMP, 3040-3, LIVR #### [facility] ([id number]) [address], [address] [place] [address] Sodium [Moles/Vol] 138 mmol/L Normal 134-146 [facility] Comment on above: Performed By: #### C BCA, BMP, 3040-3, LIVR #### [facility] ([id number]) [address] [address] [place] [address] Urea nitrogen [Mass/Vol] 14 mg/dL Normal 5-27 [facility] Comment on above: Performed By: #### C BCA, BMP, 3040-3, LIVR #### [facility] ([id number]) [address], [address] [place] [address] CBC AND AUTO DIFFon 04-17-19 24 ABSOLUTE BASOPHIL 0.1 X10E9/L Normal 0.0-0.2 [facility] Comment on above: Performed By: #### C MARIA ISABEL BMP, 3039-3, LIVR #### [facility] ([id number]) [address], [address] [place] [address] ABSOLUTE NEUTROPHIL 9.3 X10E9/L High 1.5-6.6 [facility] Comment on above: Performed By: #### C DARREN NICOLAS, 3039-04, LIVR #### [facility] ([id number]) [address] [place] [address] Basophils/100 WBC (Bld) 0.6 % Normal [facility] Comment on above: Performed By: #### Racheal NICOLAS BMP, 3039-04, LIVR #### [facility] ([id number]) [address] [place] [address] Eosinophils (Bld) [#/Vol] 0.1 10*3/uL Normal 0.0-0.4 [facility] Comment on above: Performed By: #### C MARIA ISABEL BMP, 3039-3, LIVR #### [facility] ([id number]) [address], [address] [place] [address] Eosinophils/100 WBC (Bld) 1.1 % Normal [facility] Comment on above: Performed By: #### C MARIA ISABEL BMP, 0-3, LIVR #### [facility] ([id number]) [address], [address] [place] [address] Erythrocyte distribution width (RBC) [Ratio] 13.2 % Normal 11.5-15.0 [facility] Comment on above: Performed By: #### C BCA, BMP, 3039-3, LIVR #### [facility] ([id number]) [address] [address] [place] [address] Hematocrit (Bld) [Volume fraction] 42.9 % Normal 39-49 [facility] Comment on above: Performed By: #### C MARIA ISABEL, BMP, 0-3, LIVR #### [facility] ([id number]) [address] [facility] [address] [place] [address] Hemoglobin (Bld) [Mass/Vol] 14.6 g/dL Normal 13.0-17.0 [facility] Comment on above: Performed By: #### C MARIA ISABEL, BMP, 3039-, LIVR #### [facility] ([id number]) [address] [address] [place] [address] Lymphocytes (Bld) [#/Vol] 1.5 10*3/uL Normal 1.0-3.5 [facility] Comment on above: Performed By: #### C MARIA ISABEL, BMP, 3039-3, LIVR #### [facility] ([id number]) [address] [address] Lymphocytes/100 WBC (Bld) 12.3 % Normal [facility] Comment on above: Performed By: #### C MARIA ISABEL BMP, 3039-3, LIVR #### [facility] ([id number]) [address], [facility] [address] [place] [address] MCH (RBC) [Entitic mass] 29.7 pg Normal 27-34 [facility] Comment on above: Performed By: #### C BCA, BMP, 0-3, LIVR #### [facility] ([id number]) [address], [address] [place] [address] MCHC (RBC) [Mass/Vol] 34.0 g/dL Normal 32-36 [facility] Comment on above: Performed By: #### C BCA, BMP, 3040-3, LIVR #### [facility] ([id number]) [address], [address] [place] [address] MCV (RBC) [Entitic vol] 87 fL Normal 80-100 [facility] Comment on above: Performed By: #### C BCA, BMP, 3040-3, LIVR #### [facility] ([id number]) [address], [address] [place] [address] Monocytes (Bld) [#/Vol] 1.0 10*3/uL High 0-0.9 [facility] Comment on above: Performed By: #### C MARIA ISABEL, BMP, 3040-3, LIVR #### [facility] ([id number]) [address], [address] [place] [address] Monocytes/100 WBC (Bld) 8.6 % Normal [facility] Comment on above: Performed By: #### C BCA, BMP, 3040-3, LIVR #### [facility] ([id number]) [address], [address] [place] [address] Neutrophils/100 WBC (Bld) 77.4 % Normal [facility] Comment on above: Performed By: #### C BCA, BMP, 3040-3, LIVR #### [facility] ([id number]) [address], [address] [place] [address] Platelet mean volume (Bld) [Entitic vol] 7.3 fL Normal 7-12 [facility] Comment on above: Performed By: #### C BCA, BMP, 3040-3, LIVR #### [facility] ([id number]) [address], [address] [place] [address] Platelets (Bld) [#/Vol] 472 10*3/uL High 150-450 [facility] Comment on above: Performed By: #### C BCA, BMP, 3040-3, LIVR #### [facility] ([id number]) [address], [address] [place] [address] RBC COUNT 4.90 X10E12/L Normal 4.10-5.70 [facility] Comment on above: Performed By: #### C MARIA ISABEL, DARREN, 0-3, LIVR #### [facility] ([id number]) [address], [address] [place] [address] WBC (Bld) [#/Vol] 12.0 10*3/uL High 4.0-11.0 [facility] Comment on above: Performed By: #### C MARIA ISABEL, [facility], 3039-3, LIVR #### [facility] ([id number]) [address], [address] [place] [address] Glucose Glucometer (BldC) [M ass/Vol]on 04-17-2023 Glucose [Mass/Vol] 159 mg/dL High 65-99 [facility] Glucose [Mass/Vol] 266 mg/dL High 65-99 [facility] Glucose [Mass/Vol] 406 mg/dL Critically high 65-99 [facility] Glucose [Mass/Vol] 205 mg/dL High 65-99 [facility] HGB A1C (GLYCO-HGB)on 2023 Glucose [Mass/Vol] 177 mg/dL Normal [facility] Comment on above: Performed By: #### C MARIA ISABEL, [facility], 0-3, LIVR #### [facility] ([id number]) [address], [address] [place] [address] HbA1c (Bld) [Mass fraction] 7.8 % High 4.4-5.6 [facility] Comment on above: Result Comment: NOTE ADA Guidelines Result HgbA1c Normal : less than 5.7 % Prediabetes : 5.7 % to 6.4 % Diabetes : > 6.4 % Use with caution in patients with abnormal hemoglobin variants as the half-life of red blood cells and in vivo glycation rates are affected. Performed By: #### C BCA, BMP, 3040-3, LIVR #### [facility] ([id number]) [address], [address] [place] [address] BASIC METABOLIC PANLon 04-16 Anion gap [Moles/Vol] 9 mmol/L Normal 5-15 [facility] Comment on above: Performed By: #### C BCA, BMP, 3040-3, LIVR #### [facility] ([id number]) [address], [address] [place] [address] Calcium [Mass/Vol] 9.8 mg/dL Normal 8.5-10.5 [facility] Comment on above: Performed By: #### C BCA, BMP, 3040-3, LIVR #### [facility] ([id number]) [address], [address] [place] [address] Chloride [Moles/Vol] 101 mmol/L Normal 98-109 [facility] Comment on above: Performed By: #### C BCA, BMP, 3040-3, LIVR #### [facility] ([id number]) [address], [address] [place] [address] CO2 [Moles/Vol] 27 mmol/L Normal 22-32 [facility] Comment on above: Performed By: #### C BCA, BMP, 3040-3, LIVR #### [facility] ([id number]) [address], [address] [place] [address] Creatinine [Mass/Vol] 0.84 mg/dL Normal 0.60-1.30 [facility] Comment on above: Result Comment: METH OD TRACEABLE TO IDMS STANDARD Performed By: #### C BCA, BMP, 3040-3, LIVR #### [facility] ([id number]) [address], [address] [place] [address] eGFR (CKD-EPI) NON-RACE DEPENDENT >90 Normal >59 [facility] Comment on above: Result Comment: Reported eGFR is based on the CKD-EPI 2020 equation that does not use a race coefficient. Performed By: #### C DARREN NICOLAS, 3040-3, LIVR #### [facility] ([id number]) [address], [facility] [address] [place] [address] Glucose [Mass/Vol] 247 mg/dL High 65-99 [facility] Comment on above: Performed By: #### C DARREN NICOLAS, 3040-3, LIVR #### [facility] ([id number]) [address] [address] Potassium [Moles/Vol] 4.5 mmol/L Normal 3.5-5.0 [facility] Comment on above: Result Comment: SPEC IMEN HEMOLYZED, RESULTS INCREASED MODERATELY HEMOLYZED Performed By: #### C MARIA ISABEL BMP, 3040-3, LIVR #### [facility] ([id number]) [address] [address] Sodium [Moles/Vol] 137 mmol/L Normal 134-146 [facility] Comment on above: Performed By: #### C MARIA ISABEL BMP, 3040-3, LIVR #### [facility] ([id number]) [address] [address] Urea nitrogen [Mass/Vol] 20 mg/dL Normal 5-27 [facility] Comment on above: Performed By: #### C MARIA ISABEL BMP, 3040-3, LIVR #### [facility] ([id number]) [address] [address] CBC AND AUTO DIFFon 04-16-19 24 ABSOLUTE BASOPHIL 0.1 X10E9/L Normal 0.0-0.2 [facility] Comment on above: Performed By: #### C MARIA ISABEL BMP, 3039-3, LIVR #### [facility] ([id number]) [address], [address] [place] [address] ABSOLUTE NEUTROPHIL 12.6 X10E9/L High 1.5-6.6 [facility] Comment on above: Performed By: #### C MARIA ISABEL, BMP, 3039-3, LIVR #### [facility] ([id number]) [address] [place] [address] Basophils/100 WBC (Bld) 0.4 % Normal [facility] Comment on above: Performed By: #### C MARIA ISABEL, BMP, 3039-, LIVR #### [facility] ([id number]) [address], [address] [place] [address] Eosinophils (Bld) [#/Vol] 0.1 10*3/uL Normal 0.0-0.4 [facility] Comment on above: Performed By: #### C MARIA ISABEL, BMP, 3039-3, LIVR #### [facility] ([id number]) [address], [address] [place] [address] Eosinophils/100 WBC (Bld) 0.5 % Normal [facility] Comment on above: Performed By: #### C MARIA ISABEL, BMP, 3039-3, LIVR #### [facility] ([id number]) [address], [address] [place] [address] Erythrocyte distribution width (RBC) [Ratio] 13.4 % Normal 11.5-15.0 [facility] Comment on above: Performed By: #### C MARIA ISABEL, BMP, 3039-3, LIVR #### [facility] ([id number]) [address], [address] [place] [address] Hematocrit (Bld) [Volume fraction] 45.3 % Normal 39-49 [facility] Comment on above: Performed By: #### C BCA, BMP, 3040-3, LIVR #### [facility] ([id number]) [address], [address] [place] [address] Hemoglobin (Bld) [Mass/Vol] 15.2 g/dL Normal 13.0-17.0 [facility] Comment on above: Performed By: #### C MARIA ISABEL, BMP, 3039-3, LIVR #### [facility] ([id number]) [address], [facility] [address] [place] [address] Lymphocytes (Bld) [#/Vol] 1.1 10*3/uL Normal 1.0-3.5 [facility] Comment on above: Performed By: #### C MARIA ISABEL BMP, 3039-04, LIVR #### [facility] ([id number]) [address], [facility] [address] [place] [address] Lymphocytes/100 WBC (Bld) 7.5 % Normal [facility] Comment on above: Performed By: #### C MARIA ISABEL, BMP, 3, LIVR #### [facility] ([id number]) [address], [facility] [address] [place] [address] MCH (RBC) [Entitic mass] 29.4 pg Normal 27-34 [facility] Comment on above: Performed By: #### C MARIA ISABEL BMP, 3039-3, LIVR #### [facility] ([id number]) [address] [place] [address] MCHC (RBC) [Mass/Vol] 33.5 g/dL Normal 32-36 [facility] Comment on above: Performed By: #### C MARIA ISABEL, BMP, 0-3, LIVR #### [facility] ([id number]) [address], [address] [place] [address] MCV (RBC) [Entitic vol] 88 fL Normal 80-100 [facility] Comment on above: Performed By: #### C BCA, BMP, 0-3, LIVR #### [facility] ([id number]) [address], [address] [place] [address] Monocytes (Bld) [#/Vol] 1.0 10*3/uL High 0-0.9 [facility] Comment on above: Performed By: #### C BCA, BMP, 3040-3, LIVR #### [facility] ([id number]) [address], [address] [place] [address] Monocytes/100 WBC (Bld) 6.9 % Normal [facility] Comment on above: Performed By: #### C BCA, BMP, 3040-3, LIVR #### [facility] ([id number]) [address], [address] [place] [address] Neutrophils/100 WBC (Bld) 84.7 % Normal [facility] Comment on above: Performed By: #### C BCA, BMP, 3040-3, LIVR #### [facility] ([id number]) [address], [address] [place] [address] Platelet mean volume (Bld) [Entitic vol] 7.2 fL Normal 7-12 [facility] Comment on above: Performed By: #### C BCA, BMP, 3040-3, LIVR #### [facility] ([id number]) [address], [address] [place] [address] Platelets (Bld) [#/Vol] 501 10*3/uL High 150-450 [facility] Comment on above: Performed By: #### C BCA, BMP, 3040-3, LIVR #### [facility] ([id number]) [address], [address] [place] [address] RBC COUNT 5.18 X10E12/L Normal 4.10-5.70 [facility] Comment on above: Performed By: #### C BCA, BMP, 3040-3, LIVR #### [facility] ([id number]) [address] [place] [address] WBC (Bld) [#/Vol] 14.8 10*3/uL High 4.0-11.0 [facility] Comment on above: Performed By: #### C BCA, BMP, 3040-3, LIVR #### [facility] ([id number]) [address] [place] [address] CT ABDOMEN AND PELVIS W CONT on [...] Callaway MD on 04/16/2023 4:47 PM Normal [facility] CT BRAIN WO CONTon CT BRAIN WO [...] Susie Sam on 04/16/2023 4:15 PM Normal [facility] Glucose Glucometer (BldC) [M ass/Vol]on 04-16-2023 Glucose [Mass/Vol] 121 mg/dL High 65-99 [facility] LIPASEon 04-16-2023 Lipase [Catalytic activity/Vol] 60 U/L Normal 11-82 [facility] Comment on above: Performed By: #### C BCA, BMP, 3040-3, LIVR #### [facility] ([id number]) [address], [address] [place] [address] LIVER PANELon 04-16-2023 Albumin [Mass/Vol] 4.2 g/dL Normal 3.2-5.3 [facility] Comment on above: Performed By: #### C MARIA ISABEL BMP, 3040-3, LIVR #### [facility] ([id number]) [address], [address] [place] [address] ALP [Catalytic activity/Vol] 93 U/L Normal 39-130 [facility] Comment on above: Performed By: #### C BCA, BMP, 3040-3, LIVR #### [facility] ([id number]) [address], [address] [place] [address] ALT [Catalytic activity/Vol] 19 U/L Normal 0-40 [facility] Comment on above: Performed By: #### C BCA, BMP, 3040-3, LIVR #### [facility] ([id number]) [address], [address] [place] [address] AST [Catalytic activity/Vol] 17 U/L Normal 0-41 [facility] Comment on above: Performed By: #### C MARIA ISABEL, BMP, 3040-3, LIVR #### [facility] ([id number]) [address], [address] [place] [address] Bilirubin [Mass/Vol] 0.8 mg/dL Normal 0.3-1.2 [facility] Comment on above: Performed By: #### C BCA, BMP, 3040-3, LIVR #### [facility] ([id number]) [address], [address] [place] [address] Bilirubin.direct [Mass/Vol] 0.1 mg/dL Normal 0.0-0.4 [facility] Comment on above: Result Comment: SPEC IMEN HEMOLYZED, RESULTS DECREASED MODERATELY HEMOLYZED Performed By: #### C BCA, BMP, 3040-3, LIVR #### [facility] ([id number]) [address] [place] [address] Protein [Mass/Vol] 7.4 g/dL Normal 6.0-8.0 [facility] Comment on above: Performed By: #### C BCA, BMP, 3040-3, LIVR #### [facility] ([id number]) [address], [address] [place] [address] URN MACROSCOPIC NURon 2023 BILIRUBIN CEDRIC Negative Normal NEG [facility] Comment on above: Performed By: #### N UM #### LABORATORY ([id number]) [address] [place] [address] BLOOD/HGB CEDRIC Small Abnormal NEG [facility] Comment on above: Performed By: #### N UM #### LABORATORY ([id number]) [address] [place] [address] GLUCOSE CEDRIC 500 mg/dL Abnormal NEG [facility] Comment on above: Performed By: #### N UM #### LABORATORY ([id number]) [address] [place] [address] KETONES CEDRIC Negative Normal NEG [facility] Comment on above: Performed By: #### N UM #### LABORATORY ([id number]) [address] [place] [address] LEUKOCYTE ESTERASE CEDRIC Trace Abnormal NEG [facility] Comment on above: Performed By: #### N UM #### LABORATORY ([id number]) [address] [place] [address] NITRITE CEDRIC Negative Normal NEG [facility] Comment on above: Performed By: #### N UM #### LABORATORY ([id number]) [address] [place] [address] PH CEDRIC 5.5 Normal 5.0-8.5 [facility] Comment on above: Performed By: #### N UM #### LABORATORY ([id number]) [address] [place] [address] PROTEIN CEDRIC Negative Normal NEG [facility] Comment on above: Performed By: #### N UM #### LABORATORY ([id number]) [address] [place] [address] SPECIFIC GRAVITY CEDRIC 1.015 Normal 1.003-1.035 [facility] Comment on above: Performed By: #### N UM #### LABORATORY ([id number]) [address] [place] [address] UROBILINOGEN CEDRIC 0.2 eu/dL Normal <1.1 [facility] Comment on above: Performed By: #### N UM #### LABORATORY ([id number]) [address] [place] [address] Urine collection deviceon ER EXTRA URINES ER EXTRA URINE ORDER IN PROCESS Normal [facility] XR CHEST 2 VWSon 04-16-2023 XR CHEST [...] Sawyer MD on 04/16/2023 7:09 PM Normal [facility] Basic Metabolic Profon 01-18 Anion gap [Moles/Vol] 17 mmol/L Normal - [facility] Comment on above: Performed By: #### B #### [facility] [address] [place], [place] [address] Crew Mess Attendant: Norberto Condon MD Calcium [Mass/Vol] 9.7 mg/dL Normal 8.6-10.4 [facility] Comment on above: Performed By: #### B MP #### [facility] [address] [place] [address] Crew Mess Attendant: Norberto Condon MD Chloride [Moles/Vol] 100 mmol/L Normal 98-107 [facility] Comment on above: Performed By: #### B MP #### [facility] [address] [place] [address] Crew Mess Attendant: Norberto Condon MD CO2 [Moles/Vol] 19 mmol/L Low 20-31 [facility] Comment on above: Performed By: #### B MP #### [address] [address] Crew Mess Attendant: Norberto Condon MD Creatinine [Mass/Vol] 1.0 mg/dL Normal 0.7-1.2 [facility] Comment on above: Performed By: #### B MP #### [address] [address] Crew Mess Attendant: Norberto Condon MD GFR/1.73 sq M.predicted among non-blacks MDRD (S/P/Bld) [Vol rate/Area] mL/min/{1.73_m2} Normal >60 [facility] Comment on above: Result Comment: [...] secretion. Performed By: #### B MP #### [address] [address] Crew Mess Attendant: Norberto Condon MD Glucose [Mass/Vol] 188 mg/dL High 70-99 [facility] Comment on above: Performed By: #### B MP #### [address] [address] Crew Mess Attendant: Norberto Condon MD Potassium [Moles/Vol] 4.6 mmol/L Normal 3.7-5.3 [facility] Comment on above: Performed By: #### B MP #### [address] [address] Crew Mess Attendant: Norberto Condon MD Sodium [Moles/Vol] 136 mmol/L Normal 135-144 [facility] Comment on above: Performed By: #### B MP #### [facility] [address] [place] [address] Crew Mess Attendant: Norberto Condon MD Urea nitrogen [Mass/Vol] 20 mg/dL Normal 8-23 [facility] Comment on above: Performed By: #### B MP #### [address] [address] Crew Mess Attendant: Norberto Condon MD Clinical Supporton 3 Clinical Support [id number] Susie Boyce 1950 M Date Provider Department Center 10/26/2022 PAT VASQUES OT [facility] No family history on file Normal [facility] Comp Metabol,Fastingon 10-04 Albumin [Mass/Vol] 4.5 g/dL Normal 3.5-5.2 [facility] Comment on above: Performed By: #### L IPR, CMPF #### [address] [address] Crew Mess Attendant: Norberto Condon MD Albumin/Glob Ratio 1.7 Normal 1.0-2.5 [facility] Comment on above: Performed By: #### L IPR, CMPF #### [facility] [address] [place] [address] Crew Mess Attendant: Norberto Condon MD Alkaline Phos 69 U/L Normal 40-129 [facility] Comment on above: Performed By: #### L IPR, CMPF #### [address] [address] Crew Mess Attendant: Norberto Condon MD ALT [Catalytic activity/Vol] 15 U/L Normal 5-41 [facility] Comment on above: Performed By: #### L IPR, CMPF #### [facility] [address] [place] [address] Crew Mess Attendant: Norberto Condon MD AST [Catalytic activity/Vol] 13 U/L Normal <40 [facility] Comment on above: Performed By: #### L IPR, CMPF #### [facility] [address] [place] [address] Crew Mess Attendant: Norberto Condon MD Bilirubin [Mass/Vol] 0.4 mg/dL Normal 0.3-1.2 [facility] Comment on above: Performed By: #### L IPR CMPF #### [address] [address] Crew Mess Attendant: Norberto Condon MD Protein [Mass/Vol] 7.2 g/dL Normal 6.4-8.3 [facility] Comment on above: Performed By: #### L IPR CMPF #### [facility] [address] [place] [address] Crew Mess Attendant: Norberto Condon MD Anion gap [Moles/Vol] 19 mmol/L High 9-17 [facility] Comment on above: Performed By: #### L IPR, CMPF #### [facility] [address] [place] [address] Crew Mess Attendant: Norberto Condon MD Calcium [Mass/Vol] 9.8 mg/dL Normal 8.6-10.4 [facility] Comment on above: Performed By: #### L IPR, CMPF #### [address] [address] Crew Mess Attendant: Norberto Condon MD Chloride [Moles/Vol] 101 mmol/L Normal 98-107 [facility] Comment on above: Performed By: #### L IPR, CMPF #### [facility] [address] [place] [address] Crew Mess Attendant: Norberto Condon MD CO2 [Moles/Vol] 19 mmol/L Low 20-31 [facility] Comment on above: Performed By: #### L IPR, CMPF #### [facility] [address] [place] [address] Crew Mess Attendant: Norberto Condon MD Creatinine [Mass/Vol] 1.0 mg/dL Normal 0.7-1.2 [facility] Comment on above: Performed By: #### L IPR, CMPF #### [address] [address] Crew Mess Attendant: Norberto Condon MD GFR/1.73 sq M.predicted among non-blacks MDRD (S/P/Bld) [Vol rate/Area] mL/min/{1.73_m2} Normal >60 [facility] Comment on above: Result Comment: [...] Performed By: #### L IPR, CMPF #### [address] [address] Crew Mess Attendant: Norberto Condon MD Glucose [Mass/Vol] 138 mg/dL High 70-99 [facility] Comment on above: Performed By: #### L IPR, CMPF #### [facility] [address] [place] [address] Crew Mess Attendant: Norberto Condon MD Potassium [Moles/Vol] 4.9 mmol/L Normal 3.7-5.3 [facility] Comment on above: Performed By: #### L IPR, CMPF #### [facility] [address] [place] [address] Crew Mess Attendant: Norberto Condon MD Sodium [Moles/Vol] 139 mmol/L Normal 135-144 [facility] Comment on above: Performed By: #### L IPR, CMPF #### [facility] [address] [place] [address] Crew Mess Attendant: Nobrerto Condon MD Urea nitrogen [Mass/Vol] 26 mg/dL High 8-23 [facility] Comment on above: Performed By: #### L IPR, CMPF #### [facility] [address] [place] [address] Crew Mess Attendant: Norberto Condon MD Lipid Profileon 10-04-2022 Cholesterol [Mass/Vol] 125 mg/dL Normal <200 [facility] Comment on above: Result Comment: Cholesterol Guidelines: <200 Desirable 200-240 Borderline >240 Undesirable Performed By: #### L IPR, CMPF #### [facility] [address] [place] [address] Crew Mess Attendant: Norberto Condon MD Cholesterol in HDL [Mass/Vol] 43 mg/dL Normal >40 [facility] Comment on above: Result Comment: HDL Guidelines: <40 Undesirable 40-59 Borderline >59 Desirable Performed By: #### L IPR, CMPF #### [facility] [address] [place] [address] Crew Mess Attendant: Norberto Condon MD Cholesterol in LDL [Mass/Vol] 66 mg/dL Normal 0-130 [facility] Comment on above: Result Comment: LDL Guidelines: <100 Desirable 100-129 Near to/above Desirable 130-159 Borderline >159 Undesirable Direct (measured) LDL and calculated LDL are not interchangeable tests. Performed By: #### L ST[facility], [facility] #### [facility] [place], [place] [id number] Crew Mess Attendant: Norberto Condon MD Cholesterol.total/Ch olesterol in HDL [Mass ratio] 2.9 {ratio} Normal <5 [facility] Comment on above: Performed By: #### L STAR, CMPF #### [facility] [address] [place], [place] [id number] Crew Mess Attendant: Norberto Condon MD Triglyceride [Mass/Vol] 80 mg/dL Normal <150 [facility] Comment on above: Result Comment: Triglyceride Guidelines: <150 Desirable 150-199 Borderline 200-499 High >499 Very high Based on AHA Guidelines for fasting triglyceride, November 2011. Performed By: #### L [facility] #### [facility] [address] [place] [address] Crew Mess Attendant: Norberto Condon MD MRI BRAIN W WO [...] by: Bertin David MD Signed by: Bertin Davdi MD 09/13/22 Final result Normal [facility] Creatinine w/GFRon 3 Creatinine [Mass/Vol] 0.8 mg/dL Normal 0.7-1.2 [facility] Comment on above: Performed By: #### C REG #### [facility] [address] [place], [place] [id number] Crew Mess Attendant: Derrek Godinez MD GFR/1.73 sq M.predicted among non-blacks MDRD (S/P/Bld) [Vol rate/Area] mL/min/{1.73_m2} Normal >60 [facility] Comment on above: Result Comment: These [...] secretion. Performed By: #### C REG #### [facility] [address] [place], [place] [id number] Crew Mess Attendant: Derrek Godinez MD B12/Folate Panelon 3 Cobalamin (Vitamin B12) [Mass/Vol] 392 pg/mL Normal 232-1245 [facility] Comment on above: Performed By: #### B 12FOL #### [facility] [address] [place] [address] Crew Mess Attendant: Norberto Condon MD Folic Acid 13.6 ng/mL Normal >4.8 [facility] Comment on above: Performed By: #### B 12FOL #### [facility] [address] [place] [address] Crew Mess Attendant: Norberto Condon MD Vitamin B12 & Folateon 08-11 Cobalamin (Vitamin B12) [Mass/Vol] 392 pg/mL 232 - 1245 pg/mL [facility] Folate [Mass/Vol] 13.6 ng/mL 4.8 - PINF ng/mL [facility] MRI CERVICAL SPINE WO CONTRA STon 01-03-2022 [...] Fazal Rodas DO 01/03/22 Final result Normal [facility] Multilevel cervical spondylosis resulting in upwards of moderate canal stenosis at C6-7. Varying levels of foraminal stenosis, severe on the left at C6-7. [facility] EXAMINATION: MRI OF THE [...] spinal canal stenosis or neural foraminal narrowing. [facility] Fazal Rodas DO - [...] stenosis, severe on the left at C6-7. [employer] Phone: MRI CERVICAL SPINE WO CONTRA STOrdered By: Fazal Rodas on 01-03-2022 [employer] Phone: MRI CERVICAL SPINE WO CONTRA STon 01-01-2022 Radiology Study observation (narrative) [employer] Phone: XR CERVICAL SPINE (2-3 VIEWS )on 10-30-2021 No acute osseous abnormality. Multilevel degenerative change. [facility] EXAMINATION: XRAY VIEWS OF THE CERVICAL SPINE 10/30/2021 8:51 am COMPARISON: None. 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 No acute osseous abnormality. Moderate degenerative change throughout most significant C4-5 C5-6 with loss of disc height endplate spondylosis. Prevertebral soft tissues unremarkable. [facility] Doroteo Mcmillan DO - 10/30/2021 EXAMINATION: XRAY VIEWS OF THE CERVICAL SPINE 10/30/2021 8:51 am COMPARISON: None. 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 No acute osseous abnormality. Moderate degenerative change throughout most significant C4-5 C5-6 with loss of disc height endplate spondylosis. Prevertebral soft tissues unremarkable. IMPRESSION: No acute osseous abnormality. Multilevel degenerative change. [employer] Work Phone: Radiology Study observation (narrative) [employer] Work Phone: XR CERVICAL SPINE (2-3 VIEWS )Ordered By: Doroteo Mcmillan on 10-30-2021 [employer] Work Phone: Comprehensive Metabolic Pane l, Fastingon 10-29-2021 Albumin [Mass/Vol] 4.4 g/dL 3.5 - 5.2 g/dL [employer] Albumin/Globulin [Mass ratio] 1.6 {ratio} 1 - 2.5 [employer] ALP (Bld) [Catalytic activity/Vol] 67 U/L 40 - 129 U/L [employer] ALT [Catalytic activity/Vol] 20 U/L 5 - 41 U/L [employer] Anion gap [Moles/Vol] 15 mmol/L 9 - 17 mmol/L [employer] AST [Catalytic activity/Vol] 14 U/L NINF - 40 U/L [employer] Bilirubin [Mass/Vol] 0.6 mg/dL 0.3 - 1 .2 mg/dL [employer] Calcium [Mass/Vol] 9.4 mg/dL 8.6 - 10. 4 mg/dL [employer] [facility] Chloride [Moles/Vol] 103 mmol/L 98 - 10 7 mmol/L [employer] [facility] CO2 [Moles/Vol] 23 mmol/L 20 - 31 mmol/L [employer] [facility] Creatinine [Mass/Vol] 0.79 mg/dL 0.7 - 1.2 mg/dL [employer] Free PSA/Total PSA [Mass fraction] 7.2 g/dL 6.4 - 8.3 g/dL [employer] GFR >60 60 - PI NF mL/min [employer] GFR Non- >60 60 - PINF mL/min [employer] GFR/1.73 sq M.predicted MDRD (S/P/Bld) [Vol rate/Area] [facility] Comment on above: Average GFR for 70 o r more years old: 75 mL/min/1.73sq m Chronic Kidney Disease: <60 mL/min/1.73sq m Kidney failure: <15 mL/min/1.73sq m eGFR calculated using average adult body mass. Additional eGFR calculator available at: http://www.[employer]/multiple_crcl_2012.htm Glucose [Mass/Vol] 139 mg/dL High 70 - 99 mg/dL [facility] [employer] Interpretation and review of laboratory results Abnormal [facility] [employer] Potassium [Moles/Vol] 4.6 mmol/L 3.7 - 5.3 mmol/L [facility] Sodium [Moles/Vol] 141 mmol/L 135 - 144 mmol/L [facility] Urea nitrogen (BldV) [Mass/Vol] 20 mg/dL 8 - 23 mg/dL [facility] Lipid Panelon 10-29-2021 Cholesterol [Mass/Vol] 160 mg/dL NINF - 200 mg/dL [facility] Comment on above: Cholesterol Guidelines: <200 Desirable 200-240 Borderline >240 Undesirable Cholesterol in HDL [Mass/Vol] 41 mg/dL 40 - PINF mg/dL [facility] Comment on above: HDL Guidelines: <40 Undesirable 40-59 Borderline >59 Desirable Cholesterol in LDL [Mass/Vol] 95 mg/dL 0 - 130 mg/dL [facility] Comment on above: LDL Guidelines: <100 Desirable 100-129 Near to/above Desirable 130-159 Borderline >159 Undesirable Direct (measured) LDL and calculated LDL are not interchangeable tests. Cholesterol.total/Ch olesterol in HDL [Mass ratio] 3.9 {ratio} NINF - 5 [facility] Triglyceride [Mass/Vol] 118 mg/dL NINF - 150 mg/dL [facility] Comment on above: Triglyceride Guidelines: <150 Desirable 150-199 Borderline 200-499 High >499 Very high Based on AHA Guidelines for fasting triglyceride, November 2011. No Panel Informationon 10-29 [facility] TSH With Reflex Ft4on 2021 TSH Qn 1.88 m[IU]/L [facility] Vitamin B12on 10-29-2021 Cobalamin (Vitamin B12) [Mass/Vol] 192 pg/mL Low 232 - 1245 pg/mL [facility] Interpretation and review of laboratory results Abnormal [facility] Vital Signs Date Time Vital Sign Value Performing Clinician Facility 02-10-2024 17:43-0500 Body mass index (BMI) [Ratio] 26.91 kg/m2 Javad Furlong DO Work Phone: [facility] 02-10-2024 17:43-0500 Body weight 77.93 kg Javad Furlong DO Work Phone: [facility] 01-27-2024 14:35-0500 Body mass index (BMI) [Ratio] 27.6 kg/m2 Javad Furlong DO Work Phone: [facility] 01-27-2024 14:35-0500 Body temperature 96.91 [degF] Javad Furlong DO Work Phone: [facility] 01-27-2024 14:35-0500 Body weight 79.92 kg Javad Furlong DO Work Phone: [facility] 01-27-2024 14:35-0500 Diastolic blood pressure 68 mm[Hg] Javad Furlong DO Work Phone: [facility] 01-27-2024 14:35-0500 Heart rate 66 /min Javad Furlong DO Work Phone: [facility] 01-27-2024 14:35-0500 Respiratory rate 18 /min Javad Furlong DO Work Phone: [facility] 01-27-2024 14:35-0500 SaO2% (BldA) [Mass fraction] 95 % Javad Furlong DO Work Phone: [facility] 01-27-2024 14:35-0500 Systolic blood pressure 126 mm[Hg] J[facility]ad Furlong DO [facility] Phone[facility] 12-23-2023 15:54-0400 Body mass index (BMI) [Ratio] 27.06 kg/m2 Javad Furlong DO Work Phone: [facility] 12-23-2023 15:54-0400 Body temperature 97.9 [degF] Javad Furlong DO Work Phone: [facility] 12-23-2023 15:54-0400 Body weight 78.38 kg Javad Furlong DO Work Phone: [facility] 12-23-2023 15:54-0400 Diastolic blood pressure 76 mm[Hg] Javad Furlong DO Work Phone: [facility] 12-23-2023 15:54-0400 Heart rate 76 /min Javad Furlong DO Work Phone: [facility] 12-23-2023 15:54-0400 Respiratory rate 17 /min Jaavd Furlong DO Work Phone: [facility] [employer] 12-23-2023 15:54-0400 SaO2% (BldA) [Mass fraction] 97 % Javad Furlong DO Work Phone: [facility] 12-23-2023 15:54-0400 Systolic blood pressure 134 mm[Hg] Javad Furlong DO Work Phone: [facility] 06-17-2023 10:00-0400 Body temperature 96.8 [degF] Dena Silva MD Work Phone: [facility] [employer] 06-17-2023 10:00-0400 Diastolic blood pressure 69 mm[Hg] Dena Silva MD Work Phone: [facility] [employer] 06-17-2023 10:00-0400 Heart rate 75 /min Dena Silva MD Work Phone: [employer] 06-17-2023 10:00-0400 Respiratory rate 17 /min Dena Silva MD Work Phone: [employer] 06-17-2023 10:00-0400 SaO2% (BldA) [Mass fraction] 98 % Dena Silva MD Work Phone: [employer] 06-17-2023 10:00-0400 Systolic blood pressure 124 mm[Hg] Dena Silva MD Work Phone: [employer] 06-16-2023 12:03-0400 Body height 172.7 cm Dena Silva MD Work Phone: [employer] 06-16-2023 12:03-0400 Body mass index (BMI) [Ratio] 27.83 kg/m2 Dena Silva MD Work Phone: [employer] 06-16-2023 12:03-0400 Body weight 83.01 kg Dena Silva MD Work Phone: [employer] Encounters Encounter Date Encounter Type Care Provider Facility Start: 02-10-2024 End: 02-10-2024 ambulatory Javad Alegre [employer] Work Phone: [facility] Comment on above: Parkinson's disease without dyskinesia or fluctuating manifestations ([facility]-HCC) (Primary Dx); Anxiety; Depression, unspecified depression type Start: 01-27-2024 End: 01-27-2024 ambulatory Javad Alegre [employer] Work Phone: [facility] Comment on above: Late onset Alzheimer 's dementia with anxiety, unspecified dementia severity (CMS-HCC) (Primary Dx); Parkinson's disease without dyskinesia or fluctuating manifestations (CMS-HCC); Gastroesophageal reflux disease, unspecified whether esophagitis present; Hypotension, unspecified hypotension type; Primary hypertension Start: 12-23-2023 End: 12-23-2023 ambulatory [facility]legre DO [facility] Comment on above: Late onset Alzheimer 's dementia with anxiety, unspecified dementia severity (CMS-HCC) (Primary Dx); Parkinson's disease without dyskinesia or fluctuating manifestations (CMS-HCC); Anxiety; Impaired gait; Contusion of scalp, subsequent encounter Start: 07-18-2023 End: 08-04-2023 Evaluation and management of inpatient DANDRESHASHI SWANSON [facility] Start: 06-17-2023 End: 06-19-2023 Evaluation and management of inpatient [facility] Stress Lab 2 [facility] Non-Invasive Cardiology Comment on above: Arrived Start: 06-16-2023 End: 06-17-2023 Evaluation and management of inpatient Dena Silva MD Work Phone: [facility] Med Surg Comment on above: Near syncope (Primar y Dx); Pre-syncope; Parkinson's disease without dyskinesia or fluctuating manifestations (HCC) Start: 04-27-2023 Telephone encounter Naila baldwin DO Work Phone: [facility] Medical Physician Sign In Start: 04-21-2023 End: 04-21-2023 ambulatory MARLENA PADGETT [facility] Start: 04-21-2023 End: 04-21-2023 ambulatory MAGALI SUAZO [facility] Start: 04-19-2023 End: 04-21-2023 ambulatory ANDRZEJ FINE [facility] Start: 04-18-2023 End: 04-21-2023 ambulatory NAILA SMITH [facility] Start: 04-16-2023 End: 04-21-2023 ambulatory HECTOR SU [facility] Start: 04-16-2023 End: 04-21-2023 Emergency department patient visit JASON WALDEN [facility] Start: 04-16-2023 End: 04-20-2023 ambulatory [facility] Start: [facility] Start: 01-18-2023 End: 01-19-[address] [facility] Start: 10-26-2022 ambulatory [facility] Start: 10-07-2022 End: 10-10-2022 ambulatory [facility] Start: 10-04-2022 End: 10-05-[address] [facility] Start: 09-07-2022 End: 09-10-2022 ambulatory [facility] Start: 09-07-2022 End: 09-09-2022 Subsequent hospital visit by physician Vale Evangelista MD Work Phone: [facility] MRI Comment on above: Cognitive impairment Start: 08-26-2022 End: 08-29-2022 ambulatory [facility] Start: 08-11-2022 End: 08-12-2022 [facility] Start: 08-11-2022 End: 08-11-2022 Subsequent hospital visit [...] Subsequent hospital visit by physician Nandini Rizzo FOOTWEAR SALES COORDINATOR [facility] Start: 01-01-2022 End: 01-04-2022 ambulatory [facility] Start: 01-01-2022 End: 01-03-2022 Subsequent hospital visit by physician Katherine Ochoa [facility] MRI Comment on above: Tremors of nervous s ystem; Cervical arthritis; Gait abnormality Start: 10-30-2021 End: 11-01-2021 Subsequent hospital visit by physician c Giddings Xr Rm 1 [facility] Comment on above: Tremors of nervous s ystem Start: 10-29-2021 End: 10-29-2021 Subsequent hospital visit by physician Dandre Swanson MD Work Phone: [facility] Comment on above: Tremors of [...] B12 & FOLATE Maira VAZQUEZ RN - ELECTRICAL MANAGER Work Phone: Start: 01-01-2022 Mri spinal canal cervical w/o contrast matrl Dandre Swanson MD Work Phone: Start: 10-30-2021 Radex spine cervical 2 or 3 views Dandre Swanson MD Work Phone: Start: 10-29-2021 Cyanocobalamin vitamin b-12 Dandre winter MD Work Phone: Start: 10-29-2021 Lipid panel Dandre Swanson MD Work Phone: Start: 11-04-2020 Microalbumin [Mass/volume] in Urine by Test strip Naila Smith Work Phone: Start: 01-27-2018 Colonoscopy Dandre Swanson MD Work Phone: Plan of Treatment Date Care Activity Detail Author Start: 04-19-2033 Screening for malign ant neoplasm of colon [facility] Start: 01-28-2028 Screening for malign ant neoplasm of colon [facility] Start: 01-26-2025 Adult BMI Screening Adult BMI Screen [facility] Start: 12-22-2024 Adult BMI Screening Adult BMI Screen [facility] Start: 12-22-2024 Tobacco Screening Tobacco Screening [facility] Start: 10-25-2024 Adult BMI Screening Adult BMI Screen ing [facility] Start: 08-04-2024 Tobacco Screening Tobacco Screening [facility] Start: 06-16-2024 GFR test (Diabetes, CKD 3-4, OR last GFR 15-59) GFR test (Diabetes, CKD 3-4, OR last GFR 15-59) [facility] Start: 05-18-2024 Hemoglobin A1c measurement A1C test (Diabetic or Prediabetic) [facility] Start: 04-20-2024 Adult BMI Screening Adult BMI Screen ing [facility] [employer] [facility] Start: 04-19-2024 Tobacco Screening Tobacco Screening [facility] Start: 03-31-2024 Depression Monitoring Depression Mon itoring [facility] Start: 01-13-2024 Influenza vaccination Flu vacc ine (Season Ended) [facility] Comment on above: Postponed from 09/28 (Patient Refused) Start: 10-30-2023 COVID-19 Vaccine ( season) COVID-19 Vaccine ( season) [facility] Start: 10-30-2023 COVID-19 Vaccine ( season) COVID-19 Vaccine ( season) [facility] Start: 10-30-2023 Influenza vaccination Influenza Vacc ine [facility] Start: 10-05-2023 Lipid panel Lipids [facility] Start: 09-09-2023 Annual Wellness Visi t (AWV) Annual Wellness Visit (AWV) [facility] Start: 09-09-2023 Depression Monitoring Depression Mon itoring [facility] Start: 09-09-2023 Hemoglobin A1c measurement A1C test (Diabetic or Prediabetic) [facility] Start: 09-08-2023 GFR test (Diabetes, CKD 3-4, OR last GFR 15-59) GFR test (Diabetes, CKD 3-4, OR last GFR 15-59) [facility] Start: 08-24-2023 End: 08-24-2023 Patient encounter procedure 08/24/2023 1:20 PM EDT Office Visit [facility] [id number] [facility] [address] [place], [place] [id number] [place] [address] [facility] [place], [place] [id number] 3 month DM f/u [facility] Comment on above: 3 month DM f/u Start: 08-11-2023 End: 08-11-2023 Patient encounter procedure 08/11/2023 11:40 AM EDT Office Visit [facility] Neurology Specialist [address] [facility] [address] [place] [id number] Vale Evangelista MD [address] [facility] [address] [place] [address] 4M PT Parkinsons [facility] Neurology Specialist Comment on above: 4M PT Parkinsons Start: 02-28-2023 Annual Wellness Visi t (Medicare Advantage) Annual Wellness Visit (Medicare Advantage) [facility] Start: 01-19-2023 Depression Monitoring Depression Mon itoring [facility] Start: 01-19-2023 Hemoglobin A1c measurement A1C test (Diabetic or Prediabetic) [facility] Start: 01-19-2023 Influenza vaccination B ON [facility] [employer] [facility] Comment on above: Postponed from 09/28 (Patient Refused) Postponed from 09/28 (Patient Refused) Start: 01-19-2023 Urine screening for protein [facility] [employer] Start: 01-12-2023 End: 01-12-2023 Patient encounter procedure 01/12/2023 Office Visit [place] [address] [facility] [place] [address] [place] [address] [facility] Start: 12-13-2022 End: 12-13-2022 Patient encounter procedure 12/13/2022 Office Visit Neurology Vale Evangelista MD [address] [address] [facility] Neurology Specialist Start: 10-29-2022 COVID-19 Vaccine ( season) COVID-19 Vaccine ( season) [facility] Start: 10-29-2022 GFR test (Diabetes, CKD 3-4, OR last GFR 15-59) GFR test (Diabetes, CKD 3-4, OR last GFR 15-59) [facility] Start: 10-29-2022 Influenza vaccination Influenza Vacc ine [facility] [employer] [facility] Start: 10-29-2022 Lipid panel Lipids [facility] [employer] Start: 10-13-2022 Depression Monitoring Depression Mon itoring [facility] Start: 10-13-2022 Hemoglobin A1c measurement A1C test (Diabetic or Prediabetic) [facility] Start: 09-28-2022 Influenza vaccination Flu vaccine (# 1) [facility] Start: 09-08-2022 End: 09-08-2022 Patient encounter procedure 09/08/2022 Office Visit [place] [address] [facility] [place] [address] [place] [address] [facility] Start: 08-12-2022 End: 08-12-2022 Patient encounter procedure 08/12/2022 Office Visit Neurology Vale Evangelista MD [address] [facility] [address] [id number] [facility] Neurology Specialist Start: 05-11-2022 End: 05-11-2022 Patient encounter procedure 05/11/2022 Office Visit Neurology Maira Morales, SAURABH - LOLITA [address] [facility] [address] [place] [address] [facility] Neurology Specialist Start: 02-24-2022 End: 02-24-2022 Patient encounter procedure 02/24/2022 Appointment Physical Therapy Kingston Quiles, PT [facility] Start: 02-17-2022 End: 02-17-2022 Patient encounter procedure 02/17/2022 Appointment Physical Therapy Kingston Quiles, PT [facility] Start: 02-15-2022 End: 02-15-2022 Patient encounter procedure 02/15/2022 Appointment Physical Therapy Prasanth Felipe FOOTWEAR SALES COORDINATOR [facility] Start: 02-10-2022 End: 02-10-2022 Patient encounter procedure 02/10/2022 Appointment Physical Therapy Prasanth Felipe FOOTWEAR SALES COORDINATOR [facility] Start: 02-08-2022 End: 02-08-2022 Patient encounter procedure 02/08/2022 Appointment Physical Therapy Kingston Qiules, PT [facility] Start: 01-19-2022 End: 01-19-2022 Patient encounter procedure 01/19/2022 Office Visit [place] [address] [facility] [place] [address] [place] [address] [facility] Start: 01-14-2022 End: 01-14-2022 Patient encounter procedure 01/14/2022 Office Visit Neurology Maira Morales, COURT ABSTRACTOR - ELECTRICAL MANAGER [address] [facility] [address] [facility] [address] [place] [address] [facility] Neurology Specialist Start: 01-11-2022 End: 01-11-2022 Patient encounter procedure 01/11/2022 Office Visit Neurology Maira Morales COURT ABSTRACTOR - ELECTRICAL MANAGER [address] [facility] [address] [place] [address] [facility] Neurology Specialist Start: 11-20-2021 Lipid panel Lipids [facility] Start: 11-04-2021 Diabetic foot examination Diabetic foot exam [facility] Start: 11-04-2021 Urine screening for protein [facility] Start: 10-29-2021 Influenza vaccination Flu vaccine (# 1) [facility] Start: 09-28-2021 Influenza vaccination Flu vaccine (# 1) [facility] Start: 06-30-2021 Annual Wellness Visi t (AWV) Annual Wellness Visit (AWV) [facility] Start: 04-26-2021 COVID-19 Vaccine (4 - Booster for Moderna series) COVID-19 Vaccine (4 - Booster for Moderna series) [facility] Start: 02-18-2021 COVID-19 Vaccine (4 - Booster for Moderna series) COVID-19 Vaccine (4 - Booster for Moderna series) [facility] Start: 02-18-2021 COVID-19 Vaccine (4 - Booster) COVID-19 Vaccine (4 - Booster) [facility] Start: 12-29-2019 Diabetic retinal exam Diabetic retin al exam [facility] Start: 12-29-2019 Glaucoma screening Diabetic retinal exam [facility] Start: 12-20-2019 Annual Wellness Visi t (AWV) Annual Wellness Visit (AWV) [facility] Start: 2014 Fall Risk Screening Fall Risk Screen ing [facility] [employer] [facility] Start: 2009 Respiratory Syncytia l Virus (RSV) or age 60 yrs+ (1 - 1-dose 60+ series) Respiratory Syncytial Virus (RSV) or age 60 yrs+ (1 - 1-dose 60+ series) [facility] Start: 1994 Screening for malign ant neoplasm of colon [facility] Start: 1968 DTaP,Tdap and Td Vaccines (1 - Tdap) DTaP,Tdap and Td Vaccines (1 - Tdap) [facility] [employer] [facility] Start: 1968 DTaP/Tdap/Td vaccine (1 - Tdap) DTaP/Tdap/Td vaccine (1 - Tdap) [facility] Start: 07-15-1967 Adult BMI Follow Up Plan Adult BMI Follow Up Plan [facility] [employer] [facility] [facility] Start: 07-15-1967 Diabetic foot examination Diabetic Foot Exam [facility] [employer] [facility] Start: 07-15-1967 Hepatitis C screening [facility]atitis [facility] Start: 1961 Depression Screening Depression Scre ening [facility] [employer] [facility] Start: 07-15-1955 Pneumococcal 65+ yea rs Vaccine (1 - PCV) Pneumococcal 65+ years Vaccine (1 - PCV) [facility] Start: 07-15-1955 Pneumococcal 65+ yea rs Vaccine (1 of 2 - PCV) Pneumococcal 65+ years Vaccine (1 of 2 - PCV) [facility] Start: 1950 Glaucoma screening Diabetic Op hthalmology Exam [facility] [employer] [facility] Start: 1950 Medicare Annual Wellness Visit Medicare Annual Wellness Visit [facility] [employer] [facility] End: 06-23-2023 Basic Metabolic Panel w/ Reflex to MG Basic Metabolic Panel w/ Reflex to MG Lab Routine Daily for 7 Days starting 06/17/2023 until 06/23/2023, 1 completed [facility] [employer] (Formerly [employer]) Comment on above: Daily for 7 Days sta rting 06/17/2023 until 06/23/2023, 1 completed End: 06-21-2023 CBC W Auto Differential panel - Blood CBC with Auto Differential Lab Routine Daily for 5 Days starting 06/17/2023 until 06/21/2023, 1 completed [employer] Comment on above: Daily for 5 Days sta rting 06/17/2023 until 06/21/2023, 1 completed Cortisol Total Cortisol Total L ab Routine 06/17/2023 10:15 AM EDT [employer] Work Phone: EKG 12 Lead EKG 12 Lead ECG Routine 06/16/2023 11:19 AM EDT [employer] Glucose [Mass/volume ] in Serum or Plasma [employer] Comment on above: 4X Daily (AC & HS) u ntil discontinued starting 06/16/2023 As Needed until disc ontinued starting 06/16/2023 End: 09-07-2022 MRI BRAIN W WO CONTRAST [place] [facility] Comment on above: 1 Occurrences starti ng 09/07/2022 until 09/07/2022 End: 06-17-2023 Nasal Cannula Oxygen Nasal Cannula Oxygen Respiratory Care Routine As Needed until discontinued starting 06/17/2023 [employer] Comment on above: As Needed until disc ontinued starting 06/17/2023 Nuclear stress test with myocardial perfusion Nuclear stress test with myocardial perfusion CV Stress/NM Stress Routine Near syncope Pre-syncope 06/17/2023 2:02 PM EDT [employer] Oxygen therapy [[facility] Data Set] Initiate Oxygen Therapy Protocol Respiratory Care Routine As Needed until discontinued starting 06/16/2023 [employer] Work Phone: Comment on above: As Needed until disc ontinued starting 06/16/2023 Immunizations Immunization Date Immunization Notes Care Provider Gaby fountain 07-23-2021 zoster vaccine recombinant Nandini Rizzo PTA [employer] Work Phone: 05-12-2021 zoster vaccine recombinant Dandre Swanson MD Work Phone: [employer] 12-24-2020 COVID-19, MODERNA BL UE border, Primary or Immunocompromised, (age 12y+), IM, 100 mcg/0.5mL Dandre Swanson MD Work Phone: [facility] Work Phone: 05-22-2020 COVID-19, mRNA, LNP- S, PF, 100mcg/0.5mL Dose Naila Smith DO Work Phone: [facility] 05-22-2020 COVID-19, US Vaccine , Vaccine Unspecified Vale Evangelista MD Work Phone: [facility] 04-24-2020 COVID-19, mRNA, LNP- S, PF, 100mcg/0.5mL Dose Naila Smith DO Work Phone: [facility] 04-24-2020 COVID-19, US Vaccine , Vaccine Unspecified Vale Evangelista MD Work Phone: [facility] Payers Date Payer Category Payer Medicare [id number] 2022 Medicare [id number] 1.2.8 [id number] 2021 Medicare [id number] 1. [id number] 1950 Unknown [id number] 2.16.8 40.1.047363.3.579.2.177 1950 Unknown [id number] 2.16.8 40.1.036747.3.579.2.177 1949 Unknown [id number] 2.16.8 40.1.402722.3.579.2.177 1949 Unknown [id number] 2.16.8 40.1.882932.3.579.2.177 1949 Unknown [id number] 2.16.8 40.1.826043.3.579.2.1286 1949 Unknown [id number] 2.16.8 40.1.116578.3.579.2.1286 1949 Unknown [id number] 2.16.8 40.1.100643.3.579.2.1286 1949 Unknown [id number] 2.16.8 40.1.987097.3.579.2.1286 1949 Unknown [id number] 2.16.8 40.1.806870.3.579.2.1286 1949 Unknown [id number] 2.16.8 40.1.253518.3.579.2.1286 1949 Unknown [id number] 2.16.8 40.1.158408.3.579.2.1286 1949 Unknown [id number] 2.16.8 40.1.362888.3.579.2.1286 1949 Unknown [id number] 2.16.8 40.1.213534.3.579.2.1286 1949 Unknown [id number] 2.16.8 40.1.753602.3.579.2.1286 1949 Unknown [id number] 2.16.8 40.1.774028.3.579.2.1286 1949 Unknown [id number] 2.16.8 40.1.683365.3.579.2.1286 1949 Unknown [id number] 2.16. 840.1.592069.3.579.2.175 1949 Unknown [id number] 2.16. 840.1.666126.3.579.2.175 1949 Unknown [id number] 2.16. 840.1.911863.3.579.2.175 1949 Unknown [id number] 2.16.8 40.1.017665.3.579.2.176 1949 Unknown [id number] 2.16.8 40.1.270841.3.579.2.176 1949 Unknown [id number] 2.16.8 40.1.935674.3.579.2.176 Social History Date Type Detail Facility Start: 10-20-2017 End: 04-19-2023 Tobacco smoking status IAIS Ex-smoker [employer] Phone: Start: 05-03-1968 End: 05-04-2015 History of tobacco use Current smoker [employer] Phone: Start: 05-03-1968 End: 05-04-2015 History of tobacco use Cigarette Smoker [employer] Phone: Start: 10-20-2017 End: 04-10-2020 Cigarettes smoked current (pack per day) - Reported 1 [employer] Work Phone: Start: 10-20-2017 End: 04-19-2023 Tobacco use and exposure Smokeless tobacco non-user [employer] Phone: Start: 10-13-2021 End: 12-23-2023 Alcohol intake Current non-drinker of alcohol (finding) [employer] Phone: Start: 07-07-2021 History SDOH Financial 4 [employer] Phone: Start: 07-07-2021 End: 09-08-2022 History SDOH Food Worry 1 [employer] Phone: Start: 07-01-2020 End: 09-08-2022 History SDOH Transport Med 2 [employer] Phone: Start: 1950 Sex Assigned At Not on file B ON [employer] Phone: Start: 01-19-2022 End: 06-17-2023 Alcohol intake Current drinker of alcohol (finding) [employer] Phone: Start: 01-14-2022 Alcohol Comment socially [employer] Work Phone: Start: 01-04-2022 End: 01-14-2022 Exposure to SARS-CoV-2 (event) Not sure [employer] Start: 09-08-2022 History SDOH Physica l Activity DPW 3 [employer] Start: 09-08-2022 History SDOH Physica l Activity MPS 0 [employer] Start: 09-08-2022 History SDOH Financial 5 [employer] Start: 04-10-2020 End: 04-16-2023 [facility] Utilities [facility] Work Phone: Has the [employer], or [employer] threatened to shut off services in your home in past 12Mo No [employer] System Work Phone: In the past 12 month s, has lack of transportation kept you from medical appointments or from getting medications? No [employer] Start: 05-03-2016 Alcohol Comment socially yearly [facility] How often to you hav e a drink containing alcohol? Never [employer] (I/We) worried wheth er (my/our) food would run out before (I/we) got money to buy more. Never true [employer] Start: 10-01-2014 [facility] (finding) [facility] NEGATED: Highlighted rowStart: NINF History of tobacco use Passive smoker [employer] Work Phone: Medical Equipment Procedure Code Equipment Code Equipment Origin al Text Equipment Identifier Dates 1 strip by Other route 4 times daily Test 2 times a day & as needed for symptoms of irregular blood glucose. Dispense sufficient amount for indicated testing frequency plus additional to accommodate PRN testing needs. [id number] Start: 08-16-2019 1 each by In Vit ro route 4 times daily As needed. [id number] Start: 08-16-2019 USE DIRECTED [id number] Start: 09-03-2021 1 strip by Other route 4 times daily Test 2 times a day & as needed for symptoms of irregular blood glucose. Dispense sufficient amount for indicated testing frequency plus additional to accommodate PRN testing needs. [id number] Start: 06-22-2022 100 each by Does not apply route daily [id number] Start: 06-22-2022 Brng Tib [id number] mm 0d Kn Ant - [id number] Start: 05-14-2016 Brng Tib 79/83mm x11mm 3d Std - [id number] Start: 10-22-2016 Cement Bn Palaco s Radpq 40g Rpl [id number] - [id number] Start: 05-14-2016 Cement Bn Palaco s Radpq 40g Rpl [id number] - [id number] Start: 10-22-2016 Cmpt Ptlr Thn 34 mm 3 Pg Kn Ser - [id number] Start: 05-14-2016 Ty Tib 79mm Cocr Kn I Beam - [id number] Start: 10-22-2016 USE DIRECTED [id number] Start: 01-05-2023 CHECK BLOOD SUGA R TWICE DAILY [id number] Start: 05-31-2023 CHECK BLOOD SUGA R TWICE DAILY [id number] Start: 05-31-2023 Cmpt Fem Kn Lt 7 0mm Cr Cmnt - [id number] Start: 05-14-2016 Ty Tib As Mx 79m m Intlk Cocr - [id number] Start: 05-14-2016 Cmpt Ptlr Thn 8. 6mm 37mm 3 Pg - [id number] Start: 10-22-2016 Cmpt Fem Kn Rt 7 0mm Cr Cmnt - [id number] Start: 10-22-2016 Clinical Notes 02-17-2022 to 02-10-2024 Javad Alegre, DO - 02/10/2024 5:43 PM Jj Alegre, DO - 01/27/2024 2:34 PM Jj Alegre, DO - 12/23/2023 3:54 PM Pilar Farmer, RN - 06/17/2023 4:43 PM EDTAttachments Note Date & Type Note Facility 02-10-2024 History of Present illness Narrative Patient Name: Susie Boyce Date of : 1950 Date of Service: 02/10/2024 Facility: [facility] Type of Visit: Acute Visit Subjective Susie Boyce is a 73 y.o. male [facility]. James continues with behavioral problems. He called 911 yesterday and told the police he was being held against his will. He was upset with his because he said that she didn't RSVP for the family [place] and that he was going to make chicken noodle soup. He gets agitated easily. He is on buspirone 5mg BID for about 6 weeks but doesn't seem to be helping. He has continued to fall and is now in a wheelchair. He didn't have any serious injuries. Allergies: Penicillins and Simvastatin Code Status: [facility] Wt 77.9 kg (171 lb 12.8 oz) BMI 26.91 kg/m Physical Exam Vitals reviewed. Constitutional: General: He is not in acute distress. Appearance: He is overweight. He is not ill-appearing. Comments: Seen in dining room in wheelchair HENT: Head: Normocephalic and atraumatic. Eyes: Extraocular Movements: Extraocular movements intact. Conjunctiva/sclera: Conjunctivae normal. Cardiovascular: Rate and Rhythm: Normal rate and regular rhythm. Pulses: Normal pulses. Heart sounds: Normal heart sounds. No murmur heard. Pulmonary: Effort: Pulmonary effort is normal. No respiratory distress. Breath sounds: Normal breath sounds. No wheezing, rhonchi or rales. Abdominal: General: Bowel sounds are normal. Palpations: Abdomen is soft. Tenderness: There is no abdominal tenderness. Musculoskeletal: Right lower leg: No edema. Left lower leg: No edema. Neurological: General: No focal deficit present. Mental Status: He is alert and oriented to person, place, and time. Gait: Gait abnormal (ambulates in a wheelchair now). Psychiatric: Attention and Perception: Attention normal. Mood and Affect: Mood and affect normal. Speech: Speech normal. Behavior: Behavior is not agitated. Behavior is cooperative. Thought Content: Thought content normal. Cognition and Memory: Cognition is impaired. Judgment: Judgment normal. Comments: He said his daughter sent him [employer] Summary / Assessment / Plan 1. Parkinson's disease without dyskinesia or fluctuating manifestations (CMS-HCC) 2. Anxiety 3. Depression, unspecified depression type I'm going to D/C buspar and try clonazepam 0.5mg BID. He seems to have failed a low dose trial. Consider Nuplazid. He seems to have some hallucinations/psychosis which may be related to Parkinson's. Check labs next month. All medications reviewed and are medically necessary. ELECTRONICALLY SIGNED BY: Javad Alegre DO documented in this encounter [facility] RAP Index 01-27-2024 History of Present illness Narrative Patient Name: Susie Boyce Date of : 1950 Date of Service: 01/27/2024 Facility: [facility] Type of Visit: Subsequent Visit Subjective Susie Boyce is a 73 y.o. male [facility] for [facility] visit. James has fallen multiple times recently. He hasn't had any serious injuries. He got a goose egg on his head but no laceration. He denies headache or neck pain. He is now ambulating in a wheelchair. There was a pharmacy recommendation to decrease protonix from 40 mg to 20 mg or change it to famotidine 20 mg. He denies stomach issues. Staff wanted parameters to hold his midodrine. Allergies: Penicillins and Simvastatin Code Status: [facility] BP 126/68 Pulse 66 Temp 36.1 C (96.9 F) Resp 18 Wt 79.9 kg (176 lb 3.2 oz) SpO2 95% BMI 27.60 kg/m Physical Exam Vitals reviewed. Constitutional: General: He is not in acute distress. Appearance: He is overweight. He is not ill-appearing. Comments: Seen in room in wheelchair HENT: Head: Normocephalic. Jaw: Jaw movement pain: .. Comments: Mild faint blue area on forehead where he hit but no open area. Old laceration scar visible and looks like there are a couple more. Eyes: Extraocular Movements: Extraocular movements intact. Conjunctiva/sclera: Conjunctivae normal. Cardiovascular: Rate and Rhythm: Normal rate and regular rhythm. Pulses: Normal pulses. Heart sounds: Normal heart sounds. No murmur heard. Pulmonary: Effort: Pulmonary effort is normal. No respiratory distress. Breath sounds: Normal breath sounds. No wheezing, rhonchi or rales. Abdominal: General: Bowel sounds are normal. Palpations: Abdomen is soft. Tenderness: There is no abdominal tenderness. Musculoskeletal: Right lower leg: No edema. Left lower leg: No edema. Neurological: General: No focal deficit present. Mental Status: He is alert and oriented to person, place, and time. Gait: Gait abnormal (ambulates with a walker). Psychiatric: Attention and Perception: Attention normal. Mood and Affect: Mood and affect normal. Speech: Speech normal. Behavior: Behavior is not agitated. Behavior is cooperative. Thought Content: Thought content normal. Cognition and Memory: Cognition is impaired. Judgment: Judgment normal. Comments: He said his daughter brought him Thanksgiving dinner yesterday. Summary / Assessment / Plan 1. Late onset Alzheimer's dementia with anxiety, unspecified dementia severity ([facility]) 2. Parkinson's disease without dyskinesia or fluctuating manifestations ([facility]) 3. Gastroesophageal reflux disease, unspecified whether esophagitis present 4. Hypotension, unspecified hypotension type 5. Hypertension I'm going to decrease protonix to 20 mg daily and if he does ok with it then consider stopping it. I want him to get midodrine TID without parameters because I don't want hypotension which can lead to falls. I want staff to check BP and pulse when he has a fall to see if he is hypotensive or bradycardic. His BP's were reviewed and not really any lows and even though it has been high it isn't critically high or didn't stay high. Continue other orders as directed. All medications reviewed and are medically necessary. ELECTRONICALLY SIGNED BY: Javad Alegre DO documented in this encounter [facility] [employer] 12-23-2023 History of Present illness Narrative Patient Name: Susie Boyce Date of : 1950 Date of Service: 12/23/2023 Facility: [facility] Type of Visit: Acute Visit Subjective Susie Boyce is a 73 y.o. male [facility]. James has been increasingly agitated, anxious and wanting to leave. His called yesterday and would like medication reviewed and adjusted or changed due to increased agitation. He also fell recently and hit his head and went to the ER. He had CT scans of neck and brain. He had a hematoma but no laceration. He says he is fine. He said he didn't pass out. His Bps have been fine. Allergies: Penicillins and Simvastatin Code Status: [facility] BP 134/76 Pulse 76 Temp 36.6 C (97.9 F) Resp 17 Wt 78.4 kg (172 lb 12.8 oz) SpO2 97% BMI 27.06 kg/m Physical Exam Constitutional: General: He is not in acute distress. Appearance: He is overweight. He is not ill-appearing. Comments: Seen in room HENT: Head: Normocephalic. Jaw: Jaw movement pain: .. Comments: Mild hyperemia on scalp where he hit but no open area. Old laceration scar visible and looks like there are a couple more Eyes: Extraocular Movements: Extraocular movements intact. Conjunctiva/sclera: Conjunctivae normal. Cardiovascular: Rate and Rhythm: Normal rate and regular rhythm. Pulses: Normal pulses. Heart sounds: Normal heart sounds. No murmur heard. Pulmonary: Effort: Pulmonary effort is normal. No respiratory distress. Breath sounds: Normal breath sounds. No wheezing, rhonchi or rales. Abdominal: General: Bowel sounds are normal. Palpations: Abdomen is soft. Tenderness: There is no abdominal tenderness. Musculoskeletal: Right lower leg: No edema. Left lower leg: No edema. Neurological: General: No focal deficit present. Mental Status: He is alert and oriented to person, place, and time. Gait: Gait abnormal (ambulates with a walker). Psychiatric: Attention and Perception: Attention normal. Mood and Affect: Mood is anxious. Speech: Speech normal. Behavior: Behavior is agitated. Behavior is cooperative. Thought Content: Thought content normal. Cognition and Memory: Cognition normal. Judgment: Judgment normal. Comments: Wants to leave Summary / Assessment / Plan 1. Late onset Alzheimer's dementia with anxiety, unspecified dementia severity ([facility]) 2. Parkinson's disease without dyskinesia or fluctuating manifestations ([facility]) 3. Anxiety 4. Impaired gait 5. Contusion of scalp, subsequent encounter He is maxed out on SSRI. He was recently started on namenda by psych. Will try buspirone 5 mg BID. Continue other orders as directed. All medications reviewed and are medically necessary. ELECTRONICALLY SIGNED BY: Javad Alegre DO documented in this encounter [facility] 06-17-2023 History of Present illness Narrative The [...] Documentation: Carbidopa Levodopa 25/250MG Tablets and Pyridostimine [place] 60MG tablets on hold, PT has plenty at home per . Midodrine 2.5MG tablets filled for 10 day supply with ins override since Sent original prescription to mail order. Midodrine was dropped off to PT's room and signed for by Bettie, of PT 4:36PM. 06/17/23 Ok to dicharge per family wish if cleared by cardiology and neurology Bertram Nguyen MD 06/17/2023 [facility] Occupational Therapy Evaluation Date: 06/17/23 Patient Name: uSsie Boyce Room: Account: [id number] : 1950 (72 y.o.) Gender: male Discharge [...] Walker accessible Home Equipment: Cane, Walker, rolling, [employer] (gait belt, glucometer) ADL Assistance: Independent Homemaking Assistance: Needs assistance (Spouse mainly completes cleaning, cooking, laundry. 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[employer] Comments: Pt [...] Education Outcome: Verbalized understanding Functional Outcome Measures AM-PAC Daily Activity - Inpatient How much help [...] How much help for eating meals?: None AM-PAC Inpatient Daily Activity Raw Score: 20 AM-PAC Inpatient ADL T-Scale Score : 42.03 ADL [...] Treatment Minutes: 19 Minutes Physical Therapy Facility/Department: [facility] Physical Therapy Initial Assessment Name: [...] Decision Making: Low Complexity History: Syncopy Exam: WF Clinical Presentation: stable No Skilled PT: No [...] Walker accessible Home Equipment: Cane, Walker, rolling, [employer] (gait belt, glucometer) Receives Help From: Family ADL Assistance: Independent Homemaking Assistance: Needs assistance (Spouse mainly completes cleaning, cooking, laundry. 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 Since then he has seen neurology who increased donepezil to 15 mg. Was also to admitted to [facility] for fatigue, dark stools and positive FOBT. [...] hypotensive. Denies any loss of consciousness since [place]. Denies any palpitations. In the ED patient [...] and orders as documented by the resident. Electronically signed by Bertram Nguyen MD t Pharmacy Medication History Note List of current [...] Medications: None documented in this encounter [facility] 06-17-2023 Hospital Discharge instructions Pilar Aldana RN - 06/17/2023 10:31 AM EDT Your information: Name: Susie Connollyisaelghazala : 1950 Your instructions: Wear compression stockings [...] EDT Continuity of Care Form Patient Name: Susie Boyce : 1950 Admit date: 06/16/2023 Discharge date: 06/17/2023 Code Status Order: DNR-CCA Advance Directives: Admitting Physician: Marta Lozano MD PCP: Dandre Swanson MD Discharging Nurse: Kaykay COHEN Discharging Hospital Unit/Room#: 2043/2043-01 Discharging Unit Emergency Contact: Extended Emergency Contact Information Primary Emergency Contact: ArseniogiuseppeBettie [facility] Mobile Relation: Spouse Secondary Emergency Contact: Mikki Urban Mobile Relation: Child Past Surgical History: Past Surgical History: Procedure Laterality Date HERNIA REPAIR JOINT REPLACEMENT 2016 Immunization History: Immunization History Administered Date(s) Administered [...] with long-term current use of insulin (HCC) E11.9, Z79.4 Osteoarthritis of knee M17.9 Depression F32.A Osteoarthritis of right knee M17.11 Recurrent major depressive disorder, in partial remission ([facility]) F33.41 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 Medication education and monitoring per protocol. Patient's personal belongings (please select all that are sent with patient): Glasses RN SIGNATURE: Timur Aldana RNCOUNTER ROLLER/SOCIAL WORK SECTION Inpatient Status Date: 06/16/2023 Readmission Risk Assessment Score: Readmission Risk Risk of Unplanned Readmission: 12 Discharging to Facility/ Agency [facility] [address] [facility] [address] Fax Dialysis Facility (if applicable) Name: Address: Dialysis Schedule: Phone: Fax: Route Rider Supervisor/Paperhanger signature: PHYSICIAN SECTION Prognosis: Fair Condition at [...] attachments cannot be sent through Care Everywhere.midodrine (Armenian)Lightheadedness or Faintness (Armenian)Orthostatic Hypotension (Armenian)Seizure (Armenian)Caregiving: Making a Home Safe: General Info (Armenian)Diabetes Diet Meal Planning: General Info (Armenian)documented in this encounter [facility] 04-27-2023 Miscellaneous Notes Called patient to inform of benign biopsies from colonoscopy and EGD at [facility]. Patient can repeat colonoscopy in 3-5 years for CRC screening, depending upon health status. documented in this encounter [employer] 04-27-2023 Telephone encounter Note Called patient to inform of benign biopsies from colonoscopy and EGD at [facility]. Patient can repeat colonoscopy in 3-5 years for CRC screening, depending upon health status. [employer] Work Phone: 01-25-2023 Note [id number] Susie Boyce 1950 M Date Provider Department [place] 01/25/2023 5732[facility] Ed No family history on file Reason for Visit and Comments: Cognitive Difficulties [Other] [facility] 01-25-2023 [facility] [address] [facility] [address] FAX: [phone] NEUROPSYCHOLOGICAL EVALUATION DATES OF SERVICE: 01/25/2023 DIAGNOSIS: R41.3 Other amnesia DATE OF ONSET: Unknown DATE OF : 1950 AGE: 72 years REASON FOR REFERRAL: This is the initial neuropsychological evaluation of Mr. Susie Boyce, a 72-year-old, right-handed gentleman who was referred for this evaluation by Vale Evangelista MD ([facility] Neurology) to determine present neurocognitive functioning in [...] to be. Review of medical records from [facility] include a neurology office visit with [...] appliance therapy was cost prohibitive. Records from [facility] include an Occupational Therapy Chemical Engineering Professor Rehabilitation Evaluation conducted on 10/26/2022 by Pat [...] but was otherwise normal. CURRENT MEDICATIONS: From memory, Mr. Boyce reports he is taking carbidopa-levodopa 4 times per day, metformin, insulin, Prozac, atorvastatin, lisinopril, vitamin B12, and recently started donepezil. [facility] records add ibuprofen. PAST MEDICAL HISTORY: Mr. Boyce reports history of Parkinson's disease and diabetes. [facility] records indicate additional history of cervical spondylosis, [...] sugar. He repo (more content not included)... [facility] 10-26-2022 Note Occupational Therapy Occupational Therapy Evaluation Chemical Engineering Professor Rehab Patient Name: Susie Boyce : 1950 [...] 72-year-old male who was referred to the front loader residential driver rehab clinic for a functional community [...] vitamin B12, lisinopril, Prozac. License Number: [id number]. State: [place]. Expiration Date: 2026. License Restrictions: B. Lens. Previous Chemical Engineering Professor Eval: No Vehicle Make and Model: 2019 [employer] [place]. Prior difficulties with driving/Citations/Navigation: No accidents, citations, or navigational errors reported. Last time driven: 10/26/2022. Current means of community mobility: Self. Type of traffic driven: All. Reports daily driving, mostly surface streets. Golfs 3 times a week. 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 Primary Chemical Engineering Professor/Passenger: Primary front loader residential driver. Necessity for eval: Medical condition recent [...] wears glasses. He follows up with an loan documentation specialist yearly. He reports no visual changes, denies diplopia or blurriness. Range of Motion: Right eye: Full. Left eye: Full. Both eyes: Full. Convergence: Normal. Saccades: Horizontal and vertical. Mild reduction in speed. Right Field: Direct fixation. Left Field: Direct fixation. Pursuits: Sustains fixation. [employer] Chemical Engineering Professor Rehab Vision Test Peripheral Doug[place] Left Eye: [...] signs, within normal limits. Road Sign Recognition: 12. Unable to identify unmarked road signs. Color [...] memory skills immediate and delayed, slight reduction. [place] Making Part B: Evaluates divided attention and [...] WNL [place] (more content not included)... [facility] 02-17-2022 Hospital course Narrative Images from the original note were not included. [] [facility] Outpatient Rehabilitation & Therapy [address] P: F: [x] [facility] Outpatient Rehabilitation & Therapy [address] P: F: [] [facility] Outpatient Rehabilitation & Therapy [address] P: F: [] [facility] Outpatient Rehabilitation & Therapy [address] P: F: [] [facility] Out[facility] Rehabilitation [facility] Therapy [address] P: F: Physical Therapy Discharge Note Date: 02/17/2022 Patient: Susie Boyce : 1950 Physician: Maira Morales APRN-LOLITA Insurance: G20 (ICD-10-CM) - Parkinson's disease (HCC) [...] from the dentist, doing well. Leaves for [place] next week. Objective: Test Measurements: see goal [...] like to seek out further therapy in [place] while on vacation and plans to continue [...] of treatment sessions. [x] Other: Leaving for [place] for several months. If you have any questions or concerns, please don't hesitate to call. Thank you for your referral. documented in this encounter [employer] Phone: Evaluation note Diagnosis Tremors of nervous system Abnormal involuntary movements Type 2 diabetes mellitus without complication, with long-term current use of insulin (HCC) Other hyperlipidemia documented in this encounter [employer] Phone: evaluation note* Diagnosis Tremors of nervous system Abnormal involuntary movements documented in this encounter [facility] [employer] Phone: evaluation note* Diagnosis Tremors of nervous system Abnormal involuntary movements Cervical arthritis Cervical spondylosis without myelopathy Gait abnormality Abnormality of gait documented in this encounter [facility] [employer] Phone: evaluation note* Diagnosis B12 deficiency Other B-complex deficiencies documented in this encounter [facility] [employer] Phone: evaluation note* Diagnosis Cognitive impairment Unspecified persistent mental disorders due to conditions classified elsewhere [facility] Diagnosis Near syncope- Primary Syncope and collapse Near syncope Syncope and collapse Pre-syncope Syncope and collapse Parkinson's disease without dyskinesia or fluctuating manifestations (HCC) documented in this encounter [facility] [employer] ([employer]aluation note* Diagnosis Late onset Alzheimer's dementia with anxiety, unspecified dementia severity (CMS-HCC)- Primary Parkinson's disease without dyskinesia or fluctuating manifestations (CMS-HCC) Anxiety Anxiety state, unspecified Impaired gait Contusion of scalp, subsequent encounter [facility] Diagnosis Late onset Alzheimer's dementia with anxiety, unspecified dementia severity (CMS-HCC)- Primary Parkinson's disease without dyskinesia or fluctuating manifestations (CMS-HCC) Gastroesophageal reflux disease, unspecified whether esophagitis present Hypotension, unspecified hypotension type Primary hypertension Unspecified essential hypertension [facility] Diagnosis Parkinson's disease without dyskinesia or fluctuating manifestations (CMS-HCC)- Primary Anxiety Anxiety state, unspecified Depression, unspecified depression type documented [facility] filedocumented in this encounter [facility] filedocumented in this encounter [facility] filedocumented in this encounter [facility] filedocumented in this encounter [facility] Advance Directives Healthcare Agents on File Name Relationship Healthcare [...] Documents on File Type Date Recorded Patient Foster Care Social Worker Expl anation Durable Power of Machine Set Up Technician 04/16/2023 6:37 PM [facility] DNRCC 024 Latest Code Status on File Code Status Date Activated Date Inactivated Comments DNR Comfort Care Arrest (DNR-CCA) [place] 04/16/2023 6:43 PM 04/20/2023 5:28 PM Latest [...] Communication Bettie Boyce Spouse Primary Decision Maker Date Activated Date Inactivated Comments 04/16/2023 6:43 PM 04/20/2023 5:28 PM Reason for Referral Specialty Diagnoses / Procedures Referred By Contac t Referred To Contact Radiology Diagnoses Tremors of nervous system Cervical arthritis Gait abnormality R25.1 (ICD-10-CM) - Tremors of nervous system Procedures MRI CERVICAL SPINE WO CONTRAST [place] MRI, CERV SPINE [id number] - [place] MRI[place] [address] [place] [address] [place] [address] Referral ID Status Reason Start Date Expiration Date Visits Re quested Visits Authorized [id number] Closed 12/21/2021 12/05/2022 1 0 Specialty Diagnoses / Procedures Referred By Contac t Referred To Contact Radiology Diagnoses Cognitive impairment Procedures MRI BRAIN W WO CONTRAST Vale Evangelista MD [address] [facility] [address] [place] [address] Referral ID Status Reason Start Date Expiration Date Visits Re quested Visits Authorized [id number] Closed 09/03/2022 08/19/2023 1 1 Summary Purpose Family History No Family History Records FoundNo Family History Records FoundNo Family History Records FoundNo Family History Records FoundNo Family History Records Found Additional Source Comments Care Teams (unrecognized sec tion and content) Linen Folder Relationship Specialty [place] [address] [place] [address] [place] [address] PCP - General Family Medicine 02/13/15 Linen Folder Relationship Specialty [place] [address] [place] [address] [place] [address] PCP - General Family Medicine 02/13/15 Linen Folder Relationship Specialty [place] [address] [place] [address] [place] [address] PCP - [facility] Medicine 02/13/15 Linen Folder Relationship Specialty [place] [address] [place] [address] PCP - [facility] 02/13/15 Linen Folder Relationship Specialty Start [place] [address] [place] [address] PCP - [facility] 02/13/15 Linen Folder Relationship Specialty Start [place] [address] [place] [address] PCP - [facility] 02/13/15 Linen Folder Relationship Specialty Start [place] [address] [place] [address] PCP - [facility] 02/13/15 Linen Folder Relationship Specialty Start [place] [address] [place] [address] PCP - [facility] 02/13/15 Linen Folder Relationship Specialty Start [place] [address] [place] [address] PCP - General 01/07/14 Linen Folder Relationship Specialty [place] [address] [place] [address] [place] [address] PCP - [facility] Medicine 02/13/15 Linen Folder Relationship Specialty [place] [address] [place] [address] PCP - [facility] 02/13/15 Linen Folder Relationship Specialty Start [place] [address] [place] [address] PCP - General 01/07/14 Linen Folder Relationship Specialty Start [place] [address] [place] [address] PCP - General 01/07/14 Reason for Visit (unrecogniz ed section and content) Specialty Diagnoses / Procedures Referred By Brian centeno Referred To Contact Radiology Diagnoses Tremors of nervous system Cervical arthritis Gait abnormality R25.1 (ICD-10-CM) - Tremors of nervous system Procedures MRI CERVICAL SPINE WO CONTRAST [place] MRI, CERV SPINE [address]00 - [place] MRI, [place] [address] [place] [address] Referral ID Status Reason Start Date Expiration Date Visits Re quested Visits Authorized [id number] Closed 12/21/2021 12/05/2022 1 0 Specialty Diagnoses / Procedures Referred By Brian centeno Referred To Contact Physical Therapist / Physical Therapy Diagnoses Parkinson's disease (HCC) Maira Morales, COURT ABSTRACTOR - ELECTRICAL MANAGER [address] [facility] [address] [place] [address] [facility] [address] [facility] [place] [address] Referral ID Status Reason Start Date Expiration Date Visits Requested Visits Authorized [id number] Authorized Specialty Services Required 2 01/14/2023 1 99 Specialty Diagnoses / Procedures Referred By Brian centeno Referred To Contact Radiology Diagnoses Cognitive impairment Procedures MRI BRAIN W WO CONTRAST Vale Evangelista MD [address] [facility] [address] [place] [address] Referral ID Status Reason Start Date Expiration Date Visits Re quested Visits Authorized [id number] Closed 09/03/2022 08/19/2023 1 1 Reason Comments Loss of Consciousness Specialty Diagnoses / Procedures Referred By Brian centeno Referred To Contact Diagnoses Pre-syncope Near syncope Marta Lozano MD [address] [place] [address] [address] [place] [address] [employer] [address] [place] [address] Referral ID Status Reason Start Date Expiration Date Visits Re quested Visits Authorized [id number] 1 1 Specialty Diagnoses / Procedures Referred By Brian centeno Referred To Contact Diagnoses Pre-syncope Near syncope Marta Lozano MD [address] [place] [address] [address] [place] [address] [employer] [address] [place] [address] (unrecognized sect ion and content) No Status Records FoundNo Status Records FoundNo Status Records FoundNo Status Records FoundNo Status Records Found INFORMATION SOURCE (unrecogn ized section and content) DATE CREATED AUTHOR 10/10/2022 [facility] DATE CREATED AUTHOR AUTHOR'S ORGANIZ ATION 01/31/2023 [facility] DATE CREATED AUTHOR AUTHOR'S ORGANIZ ATION 04/27/2023 [facility] DATE CREATED AUTHOR AUTHOR'S ORGANIZ ATION 06/25/2023 [facility] DATE CREATED AUTHOR AUTHOR'S ORGANIZ ATION 08/05/2023 [facility] Ordered Prescriptions (unrec ognized section and content) [...] dose on Tue06/17/23 at 0900, Until Discontinued 2099 (Due - Provider : Pilar Aldana RN) carbidopa-levodopa (SINEMET) 25-250 MG per tablet 1 tablet 1 tablet, Oral, 4 TIMES DAILY, First dose on Tue06/16/23 at 1700, Until Discontinued 1614 (Given - Provider: Pilar Aldana RN)1958 (Given [...] dose on Luna 06/16/23 at 1500, Until Discontinued, Indication of Use: Prophylaxis-DVT/PE, Administer by deep subCUTAneous injection with pt lying down. Alternate injection sites on abdominal wall. Do not rub site after injection. Check with provider prior to any invasive procedure. 1614 (Given - Provider: Pilar Aldana RN) 0953 [...] RN - Reason: Other - Comment: recently given)165 (Given - Provider: Pilar Aldana RN) pyRIDostigmine [...] mL/hr, Administer over 0.5 Hours, ONCE, On Tue24 at 1130, For 1 dose 1153 (New Bag - Provider: Sandi Razo RN)1223 (Stopped - Provider: Pilar Aldana RN) sodium chloride flush 0.9 % injection 5-40 mL 5-40 mL, IntraVENous, EVERY 12 HOURS SCHEDULED (2 times per day), First dose on Luna 06/16/23 at 2100, Until Discontinued, For Line Patency: [...] Midline or Central Line = 20 mL/lumen 2000 (Given - Provider: Michael Calvo RN) 1016 [...] Hours, PRN, Other, Magnesium Replacement, Starting on Tue06/16/23 at 1352, Mag Lab Replacement Action 1.4-1.6 [...] Luna 06/16/23 at 1352, Until Discontinued, Potassium Replacement, May [...] mL 5-40 mL, IntraVENous, PRN, Starting on Luna [...] NOT ALERT or NPO, Starting on Luna 24 at 1352
Repeat blood glucose in 15 [...] NOT ALERT or NPO, Starting on Luna 24 at 1352
Repeat blood glucose in 15 [...] EVERY 8 HOURS PRN, Starting on Luna 24 at 1352, Until Discontinued, Nausea, Vomiting Or ondansetron (ZOFRAN) injection 4 mgJump to med 4 mg, IntraVENous, EVERY 6 HOURS PRN, Starting on Luna 06/15/24 at 1352, Until Discontinued, Nausea, Vomiting
Administer if oral route cannot be used.
Group 4: potassium chloride (KLOR-CON M) extended release tablet 40 mEqJump to med 40 mEq, Oral, PRN, Starting on Luna 24 at 1352, Until Discontinued, Potassium Replacement
May [...] BE BASED ON THE PRIMARY CLINICAL RECORDS. [facility]. provides no warranty or guarantee of the accuracy or completeness of information in this document.
[2024-02-20 20:02] LABS: Basophils Percent Auto 0.3 % (0.2-2.0); Eosinophils Absolute Auto 0.1 10^3/uL (0.0-0.7); Eosinophils Percent Auto 1.1 % (0.9-7.0); Hematocrit 41.5 % (42.0-54.0); Hemoglobin 13.9 g/dL (14.0-18.0); Immature Granulocytes Abs Auto 0.03 10^3/uL (0.00-0.03); Immature Granulocytes Pct Auto 0.3 % (0.0-0.5); Lymphocytes Absolute Auto 1.5 10^3/uL (1.2-3.8); Lymphocytes Percent Auto 16.9 % (20.5-60.0); Mean Corpuscular HGB Conc 33.5 g/dL (29.9-35.2); Mean Corpuscular Hemoglobin 30.6 pg (25.9-34.0); Mean Corpuscular Volume 91.4 fL (80.0-94.0); Mean Platelet Volume 8.8 fL (9.5-13.5); Monocytes Absolute Auto 0.7 10^3/uL (0.3-0.8); Monocytes Percent Auto 8.4 % (1.7-12.0); Neutrophils Absolute Auto 6.4 10^3/uL (1.4-6.5); Platelet Count 332 10^3/uL (150-450); Red Blood Count 4.54 10^6/uL (4.70-6.10); Red Cell Distribution Width 12.9 % (11.0-15.0); White Blood Count 8.8 10^3/uL (4.0-11.0)
[2024-02-20 20:12] LABS: Anion Gap 10.4; BUN Creatinine Ratio 19.1; Calcium 8.8 mg/dL (8.5-10.1); Carbon Dioxide 28.9 mmol/L (21.0-32.0); Chloride 103 mmol/L (98-107); Estimated GFR (African America >60 (>=60 mL/min/1.73m^2); Estimated GFR (Non-African Ame >60 (>=60 mL/min/1.73m^2); Glucose 192 mg/dL (74-106); Potassium 4.3 mmol/L (3.5-5.1); Sodium 138 mmol/L (136-145)
--- NOTE | 2024-02-20 20:23 | PC.NURSE ---
patient from LTC facility reports patient was at nursing station insisting he go to the hospital and reports patient was being combative. here patient is alert x3. hx dementia. patient reports he was feeling like he was going to pass out. states he was dizzy. patient states he was sitting at the nurses station eatting. reports normal appetite but has not been drinking as much. patient is calm and cooperative at this time
[2024-02-20 20:26] LABS: Troponin I High Sensitivity 10.4 pg/mL (4.0-76.1)
[2024-02-20 21:32] LABS: Bilirubin Urine NEGATIVE (NEGATIVE); Blood Urine NEGATIVE (NEGATIVE); Clarity Urine CLEAR (CLEAR); Color Urine YELLOW (YELLOW); Glucose Urine UA NEGATIVE (NEGATIVE); Ketones Urine TRACE mg/dL (NEGATIVE); Leukocyte Esterase Urine NEGATIVE (NEGATIVE); Nitrite Urine NEGATIVE (NEGATIVE); Protein Urine NEGATIVE (NEG/TRACE); Specific Gravity Urine 1.025 (1.005-1.025)
[2024-02-20 21:40] LABS: Bacteria Urine NONE SEEN #/HPF (NONE SEEN); Cast Seen? NONE SEEN #/LPF (NONE SEEN); Crystals Seen? None Seen #/HPF (None Seen); Mucus Urine NONE SEEN (NONE SEEN); RBC Urine 0-2 #/HPF (0-2); Squamous Epithelial Cell Urine NONE SEEN #/LPF (NONE/RARE); Urine Culture Indicated NO
[2024-02-20 22:32] VITALS: BP 113/81; PULSE 74; O2SAT 96
[2024-02-20 23:15] VITALS: BP 136/82; PULSE 52; O2SAT 97
== END 2024-02-20 23:18 | disposition home or self-care (01) ==
PROVIDERS: Emergency Provider Emergency Medicine; PCP Family Medicine
DX: R42 Dizziness and giddiness (principal)
CPT/HCPCS: 36415; 70450; 71045; 80048; 81001; 84484; 85025; 93005; 99285

== ENCOUNTER 2024-02-22 07:02 | Emergency (ER) | payer MEDICARE, SELFPAY ==
--- NOTE | 2024-02-22 07:04 | CT_ITS ---
[address] [address] Patient Name: SUSIE SAMUELS MRN: [id number] date: 1950 Sex: M Assigned Patient Location: ER Current Patient Location: Accession/Order Number: [id number] Exam Date: 02/22/2024 07:30 Report Date: 02/22/2024 08:13 At the request of: VIOLETTE LOPEZ Procedure: CT cervical spine wo con EXAM: CT head/brain wo con, CT cervical spine wo con CLINICAL INDICATION: fall COMPARISON: CT head 02/20/2024. CT cervical spine 12/11/2023. TECHNIQUE: Axial CT images of the brain and cervical spine were obtained without contrast. Coronal and sagittal reformats were obtained. Dose reduction techniques were achieved by using automated exposure control and/or adjustment of mA and/or kV according to patient size and/or use of iterative reconstruction technique. FINDINGS: No intracranial hemorrhage, extra-axial fluid collection, hydrocephalus, midline shift, or acute large vessel territry infarction. No other mass effect. Patent basal cisterns. Trace periventricular hypoattenuation is likely on the basis of chronic microvascular angiopathic changes . Mild to moderate symmetric global volume loss without lobar predominance. Commensurate ventricular system caliber prominence. No calvarial fracture. Normal soft tissues. Paranasal sinuses and mastoid air cells are well-aerated. Osseous Mineralization: Mild osseous demineralization limits evaluation of fine osseous detail. Trauma: No fracture, traumatic malalignment, facet dislocation, or epidural hemorrhage. Alignment: Normal craniocervical and cervicothoracic junctions. Mild levoconvex curvature in the mid cervical spine could relate at least in part to patient positioning. Vertebral Body Heights: Maintained. Spondylotic Changes: Multilevel spondylotic changes include varying degrees of intervertebral disc height loss, osteophytic ridging, endplate sclerosis, and facet/uncovertebral joint hypertrophy. Small partially calcified degenerative panus formation along the dorsal tip of the dens. Soft Tissues: No acute soft tissue abnormalities. Scattered vascular calcifications. Other: Clear visualized lung apices. Airway is patent. CT/CT cervical spine wo con IMPRESSION: 1. No acute intracranial process. 2. No cervical spine fracture or traumatic malalignment. 3. Multilevel spondylotic changes. Electronically authenticated by: JASON Perez: 02/22/2024 08:13
--- NOTE | 2024-02-22 07:04 | CT_ITS ---
The [address] [address] Patient Name: SUSIE SAMUELS MRN: [id number] date: 1950 Sex: M Assigned Patient Location: ER Current Patient Location: Accession/Order Number: [id number] Exam Date: 02/22/2024 07:30 Report Date: 02/22/2024 08:13 At the request of: VIOLETTE LOPEZ Procedure: CT head/brain wo con EXAM: CT head/brain wo con, CT cervical spine wo con CLINICAL INDICATION: fall COMPARISON: CT head 02/20/2024. CT cervical spine 12/11/2023. TECHNIQUE: Axial CT images of the brain and cervical spine were obtained without contrast. Coronal and sagittal reformats were obtained. Dose reduction techniques were achieved by using automated exposure control and/or adjustment of mA and/or kV according to patient size and/or use of iterative reconstruction technique. FINDINGS: No intracranial hemorrhage, extra-axial fluid collection, hydrocephalus, midline shift, or acute large vessel territry infarction. No other mass effect. Patent basal cisterns. Trace periventricular hypoattenuation is likely on the basis of chronic microvascular angiopathic changes . Mild to moderate symmetric global volume loss without lobar predominance. Commensurate ventricular system caliber prominence. No calvarial fracture. Normal soft tissues. Paranasal sinuses and mastoid air cells are well-aerated. Osseous Mineralization: Mild osseous demineralization limits evaluation of fine osseous detail. Trauma: No fracture, traumatic malalignment, facet dislocation, or epidural hemorrhage. Alignment: Normal craniocervical and cervicothoracic junctions. Mild levoconvex curvature in the mid cervical spine could relate at least in part to patient positioning. Vertebral Body Heights: Maintained. Spondylotic Changes: Multilevel spondylotic changes include varying degrees of intervertebral disc height loss, osteophytic ridging, endplate sclerosis, and facet/uncovertebral joint hypertrophy. Small partially calcified degenerative panus formation along the dorsal tip of the dens. Soft Tissues: No acute soft tissue abnormalities. Scattered vascular calcifications. Other: Clear visualized lung apices. Airway is patent. CT/CT head/brain wo con IMPRESSION: 1. No acute intracranial process. 2. No cervical spine fracture or traumatic malalignment. 3. Multilevel spondylotic changes. Electronically authenticated by: JASON TREJO Date: 02/22/2024 08:13
[2024-02-22 07:08] VITALS: BP 112/81; PULSE 54; TEMP 36.4; O2SAT 97; BMI 24.4
--- NOTE | 2024-02-22 07:10 | ECG_ITS ---
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
--- NOTE | 2024-02-22 07:11 | ED.GENADUL1 ---
HPI HPI - General Adult General Chief complaint: Wound/Laceration Stated complaint: LACERATION Time Seen by Provider: 02/22/24 07:04 History of Present Illness HPI narrative: Patient have a history of Parkinson disease and a known history of multiple falls before. Is coming to us after he woke up this morning apparently stood up from the bed and fell to hit the back of his head with the wall The patient brought to us by the EMS he had no loss of consciousness Upon arrival the patient mentioned that he mostly just tripped and fell there was no other complaints of dizziness or any other concerns The patient tetanus booster was more than 5 years old Related Data Home Medications ?Medication ?Instructions ?Recorded ?Confirmed atorvastatin 40 mg tablet 40 mg PO DAILY 10/16/23 02/22/24 carbidopa ER 25 mg-levodopa 100 mg 1 tab PO QID 10/16/23 02/22/24 tablet,extended release cyanocobalamin (vitamin B-12) 100 100 mcg PO DAILY 10/16/23 02/22/24 mcg tablet donepezil 23 mg tablet 23 mg PO DAILY 10/16/23 02/22/24 fluoxetine 60 mg tablet 60 mg PO DAILY 10/16/23 02/22/24 insulin lispro 100 unit/mL 1 sliding scale dose subcut 10/16/23 02/22/24 subcutaneous cartridge (Humalog USEASDIRECTD U-100 Insulin) melatonin 3 mg capsule 3 mg PO QPM 10/16/23 02/22/24 pantoprazole 40 mg tablet,delayed 40 mg PO QPM 10/16/23 02/22/24 release pyridostigmine bromide 30 mg tablet 30 mg PO BID 10/16/23 02/22/24 sitagliptin phosphate 100 mg 100 mg PO BID 10/16/23 02/22/24 tablet (Januvia) clonazepam 0.5 mg tablet 0.5 mg PO Q12H 02/22/24 02/22/24 insulin glargine 100 unit/mL 20 unit subcut BEDTIME 02/22/24 02/22/24 subcutaneous solution (Lantus U-100 Insulin) memantine 5 mg tablet 5 mg PO DAILY 02/22/24 02/22/24 ziprasidone HCl 20 mg capsule 20 mg PO Q12H PRN agitation 02/22/24 02/22/24 (Anita) Previous Rx's ?Medication ?Instructions ?Recorded ibuprofen 400 mg tablet 400 mg PO TID PRN pain #14 tabs 02/22/24 Allergies Allergy/AdvReac Type Severity Reaction Status Date / Time Penicillins Allergy Severe Anaphylaxis Verified 02/22/24 07:08 Opioid HPI Opioid Management Most Recent Opioid Data: Last ED Pain Assessment 02/22/24 10:02 Review of Systems ROS Status of ROS 10 or more systems reviewed and unremarkable except as noted in history and below [facility] Medical History (Updated 02/22/24 @ 11:18 by Daniela Haji MD) Osteoarthritis ?M19.90 - Unspecified osteoarthritis, unspecified site (ICD-10) HTN (hypertension) ?I10 - Essential (primary) hypertension (ICD-10) Homicidal ideations ?R45.850 - Homicidal ideations (ICD-10) Diabetes ?E11.9 - Type 2 diabetes mellitus without complications (ICD-10) Parkinson disease ?G20.A1 - Parkinson's disease without dyskinesia, without mention of fluctuations (ICD-10) Hyperlipemia ?E78.5 - Hyperlipidemia, unspecified (ICD-10) Anxiety ?F41.9 - Anxiety disorder, unspecified (ICD-10) Alzheimer disease ?G30.9 - Alzheimer's disease, unspecified (ICD-10) ?F02.80 - Dementia in other diseases classified elsewhere, unspecified severity, without behavioral disturbance, psychotic disturbance, mood disturbance, and anxiety (ICD-10) Agitation ?R45.1 - Restlessness and agitation (ICD-10) Depression ?F32.A - Depression, unspecified (ICD-10) Dementia ?F03.90 - Unspecified dementia, unspecified severity, without behavioral disturbance, psychotic disturbance, mood disturbance, and anxiety (ICD-10) Social History Little interest or pleasure in doing things: not at all Feeling down, depressed, or hopeless: not at all Exam Narrative Exam Narrative: Nurses notes and vital signs reviewed and patient is not hypoxic. General: Well-appearing and in no apparent distress. Skin: Warm, dry, no pallor noted. No rash. Head: Normocephalic, small scalp laceration almost 2 cm on the posterior aspect of the scalp on the occipital area. No foreign body No bony tenderness Neck: Supple, non-tender. Eye: Pupils are equal, round and EOMI. No scleral icterus. Ears, Nose, Mouth, and Throat: TM are clear, no nasal mucosal hypertrophy. Oral mucosa is moist, no posterior oropharynx erythema, uvula is mid-line Cardiovascular: Regular Rate and Rhythm without murmur, gallop or rub. Respiratory: No accessory muscle use or respiratory distress. Lungs are clear to auscultation, no wheezing, rales or rhonchi Chest Wall: no tenderness Back: No midline thoracic or lumbar vertebral tenderness. No CVA tenderness Musculoskeletal: normal ROM, no calf or popliteal tenderness, no lower extremity edema/swelling GI: Abdomen is soft, non-distended. Normal bowel sounds. No masses appreciated. No tenderness to palpation. No rebound, guarding, or rigidity noted. Neurological: A&O x4. No cranial nerve dysfunction observed. No truncal ataxia. Moves all extremities. Sensation intact. Psychiatric: Cooperative and interactive. Normal mood and affect. Constitutional Vital Signs, click to edit/add: Last Vital Signs Temp 97.6 F 02/22/24 07:08 Pulse 62 02/22/24 09:02 Resp 18 02/22/24 09:02 BP 140/72 02/22/24 09:02 Pulse Ox 99 02/22/24 09:02 O2 Del Method Room Air 02/22/24 09:02 Course Vital Signs Vital signs: Vital Signs Temperature 97.6 F 02/22/24 07:08 Pulse Rate 54 L 02/22/24 07:08 Respiratory Rate 20 02/22/24 07:08 Blood Pressure 112/81 02/22/24 07:08 Pulse Oximetry 97 02/22/24 07:08 Temperature 97.6 F 02/22/24 07:08 Pulse Rate 62 02/22/24 09:02 Respiratory Rate 18 02/22/24 09:02 Blood Pressure 140/72 02/22/24 09:02 Pulse Oximetry 99 02/22/24 09:02 Oxygen Delivery Method Room Air 02/22/24 09:02 Medical Decision Making MDM Narrative Medical decision making narrative: CT of the head as well as CT cervical spine showed no acute pathology X-ray of the right hip the patient was complaining of that after he arrived shows no acute pathology Patient received Toradol in the ER after which she was feeling better he also had his laceration to the scalp cleaned after that we placed 3 pj The patient was instructed about removal of the pj after 5 to 7 days Monitoring for any symptoms in the care home after the fall and fall prevention The patient is to follow up with primary care physician in next 2-3 days or to return to the emergency department should any of the signs or symptoms worsen or new symptoms develop. The patient agrees with the following Diagnosis and Treatment plan and the patient will be discharged home. Discharge Plan Discharge Chief Complaint: Wound/Laceration Clinical Impression: Laceration of scalp, Fall, Acute hip pain Patient Disposition: Home, Self-Care Time of Disposition Decision: 11:16 Condition: Good Prescriptions / Home Meds: New ibuprofen 400 mg tablet 400 mg PO TID PRN (Reason: pain) Qty: 14 0RF No Action clonazepam 0.5 mg tablet 0.5 mg PO Q12H ziprasidone HCl [Geodon] 20 mg capsule 20 mg PO Q12H PRN (Reason: agitation) Rx Instructions: give with food (meal/snack) insulin glargine [Lantus U-100 Insulin] 100 unit/mL solution 20 unit SUBCUT BEDTIME memantine 5 mg tablet 5 mg PO DAILY atorvastatin 40 mg tablet 40 mg PO DAILY carbidopa-levodopa 25-100 mg tablet extended release 1 tab PO QID donepezil 23 mg tablet 23 mg PO DAILY fluoxetine 60 mg tablet 60 mg PO DAILY Humalog U-100 Insulin 100 unit/mL cartridge 1 sliding scale dose subcut USEASDIRECTD Januvia 100 mg tablet 100 mg PO BID melatonin 3 mg capsule 3 mg PO QPM pantoprazole 40 mg tablet,delayed release (DR/EC) 40 mg PO QPM pyridostigmine bromide 30 mg tablet 30 mg PO BID cyanocobalamin (vitamin B-12) 100 mcg tablet 100 mcg PO DAILY Print Language: Citizen Of [place] Instructions: Laceration (ED), Staple Care (ED), Hip Pain (ED) Referrals: ARSENIO RODRIGUEZ [Primary Care Provider] - 1 week Discharge Date/Time: 02/22/24 12:26
--- OUTSIDE RECORDS SUMMARY | 2024-02-22 07:19 | XMS_ITS | CCD ---
Author Organization 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 Role Phone Dandre Swanson MD Primary Care Provider VALE EVANGELISTA Attending Unavailable VALE EVANGELISTA Referring [...] to adverse reactions to drug 5 Anaphylaxis 1d4 Pty (16 sources) Simvastatin; Translations: [SIMVASTATIN] Drug Allergy 5 Other (See Comments) [facility]Path Phone: (1 source) ALLERGIES NOT ON FILE; Translations: [ALLERGIES NOT ON FILE] Propensity to adverse reactions (disorder) [facility] Repository (2 sources) Vibegron Propensity to adverse reactions to drug 4 Rash 1d4 Pty Work Phone: (2 sources) Metformin And Related Propensity to adverse reactions to drug 4 Diarrhea 1d4 Pty Medications Current Medications Medication Drug Class(es) Dates Sig (Normalized) Sig (Original) Acetaminophen (9 sources) Start: 06-16-2023 acetaminophen (TYLENOL) tablet 650 mg take 2 tablets by [facility] every six hours as needed for pain [...] Start: 02-12-2016 take 2 tablets by mo [facility] three times weekly atorvastatin (LIPITOR) 20 mg [...] neuropathy, with long-term current use of insulin ([facility]) Inject 45 Units into the skin daily 60 mL 3 09/08/2022 06/16/2023 Discontinued (DOSE ADJUSTMENT) Start: 07-07-2022 End: 09-08-2022 LEVEMIR FLEXPEN 100 UNIT/ML injection pen Indications: Type 2 diabetes mellitus without complication, with long-term current use of insulin ([facility]) INJECT SUBCUTANEOUSLY 55 UNITS DAILY 60 mL 3 07/07/2022 09/08/2022 Discontinued (REORDER) Start: 10-13-2021 End: 01-11-2022 insulin detemir (LEVEMIR FLE XTOUCH) 100 UNIT/ML injection pen Indications: Type 2 diabetes mellitus without complication, with long-term current use of insulin ([facility]) Inject 40 Units into the skin nightly 36 mL 3 10/13/2021 01/11/2022 Active lisinopril 2.5 mg oral tablet (9 sources) Angiotensin Converting Enzyme Inhibitor Start: 04-27-2022 lisinopril (PRINIVIL;ZESTRIL) 2.5 MG tablet Indications: Type 2 diabetes mellitus without complication, with long-term current use of insulin ([facility]) TAKE 1 TABLET DAILY 90 tablet 3 04/27/2022 Active Start: 04-13-2021 lisinopril (HI INIVIL;ZESTRIL) 2.5 MG tablet Indications: Type 2 diabetes mellitus without complication, with long-term current use of insulin ([facility]) TAKE 1 TABLET DAILY 90 tablet 3 [...] 09/01/2022 09/08/2022 Discontinued (REORDER) Start: 10-26-2021 FLUoxetine (HI OZAC) 20 MG capsule Indications: Recurrent major [...] at 0900, Until Discontinued polyethylene glycol 3350 77411 mg powder for oral solution (1 source) [...] 10-30-2021 10-30-2021 Episodic Other aftercare (1 source) intermission coordinator (current) use of insulin; Translations: [long-term (current) use of insulin] Onset: 12-17-2014 Episodic [...] Results Test Name Value Interpretation Reference Range [facility] Glucose,Whole Bloodon 2023 Glucose [Mass/Vol] 169 mg/dL High 75-110 [facility] Glucose [Mass/Vol] 129 mg/dL High 75-110 [facility] Glucose [Mass/Vol] 149 mg/dL High 75-110 [facility] Glucose,Whole Bloodon 2023 Glucose [Mass/Vol] 210 mg/dL High 75-110 [facility] Glucose [Mass/Vol] 169 mg/dL High 75-110 [facility] Glucose [Mass/Vol] 120 mg/dL High 75-110 [facility] Glucose [Mass/Vol] 139 mg/dL High 75-110 [facility] Glucose,Whole Bloodon 2023 Glucose [Mass/Vol] 222 mg/dL High 75-110 [facility] Glucose [Mass/Vol] 172 mg/dL High 75-110 [facility] Glucose [Mass/Vol] 165 mg/dL High 75-110 [facility] Glucose [Mass/Vol] 178 mg/dL High 75-110 [facility] Glucose,Whole Bloodon 2023 Glucose [Mass/Vol] 249 mg/dL High 75-110 [facility] Glucose [Mass/Vol] 96 mg/dL Normal 75-110 [facility] Glucose [Mass/Vol] 57 mg/dL Low 75-110 [facility] Comment on above: Result Comment: [employer] Noted Glucose,Whole Bloodon 2023 Glucose [Mass/Vol] 121 mg/dL High 75-110 [facility] Glucose [Mass/Vol] 70 mg/dL Low 75-110 [facility] Glucose [Mass/Vol] 73 mg/dL Low 75-110 [facility] Glucose [Mass/Vol] 57 mg/dL Low 75-110 [facility] Glucose [Mass/Vol] 71 mg/dL Low 75-110 [facility] Glucose,Whole Bloodon 2023 Glucose [Mass/Vol] 77 mg/dL Normal 75-110 [facility] Glucose [Mass/Vol] 95 mg/dL Normal 75-110 [facility] Glucose [Mass/Vol] 110 mg/dL Normal 75-110 [facility] Glucose [Mass/Vol] 123 mg/dL High 75-110 [facility] Glucose,Whole Bloodon 2023 Glucose [Mass/Vol] 224 mg/dL High 75-110 [facility] Glucose [Mass/Vol] 148 mg/dL High 75-110 [facility] Glucose [Mass/Vol] 184 mg/dL High 75-110 [facility] Glucose,Whole Bloodon 2023 Glucose [Mass/Vol] 129 mg/dL High 75-110 [facility] Glucose [Mass/Vol] 141 mg/dL High 75-110 [facility] Glucose [Mass/Vol] 87 mg/dL Normal 75-110 [facility] Glucose [Mass/Vol] 103 mg/dL Normal 75-110 [facility] Glucose,Whole Bloodon 2023 Glucose [Mass/Vol] 139 mg/dL High 75-110 [facility] Glucose [Mass/Vol] 184 mg/dL High 75-110 [facility] Glucose [Mass/Vol] 70 mg/dL Low 75-110 [facility] Glucose,Whole Bloodon 2023 Glucose [Mass/Vol] 181 mg/dL High 75-110 [facility] Glucose [Mass/Vol] 126 mg/dL High 75-110 [facility] Glucose [Mass/Vol] 132 mg/dL High 75-110 [facility] Glucose [Mass/Vol] 156 mg/dL High 75-110 [facility] Glucose,Whole Bloodon 2023 Glucose [Mass/Vol] 213 mg/dL High 75-110 [facility] Glucose [Mass/Vol] 143 mg/dL High 75-110 [facility] Glucose [Mass/Vol] 118 mg/dL High 75-110 [facility] Glucose [Mass/Vol] 78 mg/dL Normal 75-110 [facility] Glucose,Whole Bloodon 2023 Glucose [Mass/Vol] 208 mg/dL High 75-110 [facility] Glucose [Mass/Vol] 168 mg/dL High 75-110 [facility] Glucose [Mass/Vol] 92 mg/dL Normal 75-110 [facility] Glucose [Mass/Vol] 135 mg/dL High 75-110 [facility] Glucose,Whole Bloodon 2023 Glucose [Mass/Vol] 171 mg/dL High 75-110 [facility] Glucose [Mass/Vol] 132 mg/dL High 75-110 [facility] Glucose [Mass/Vol] 166 mg/dL High 75-110 [facility] Glucose [Mass/Vol] 191 mg/dL High 75-110 [facility] Glucose,Whole Bloodon 2023 Glucose [Mass/Vol] 156 mg/dL High 75-110 [facility] Glucose [Mass/Vol] 155 mg/dL High 75-110 [facility] Glucose [Mass/Vol] 143 mg/dL High 75-110 [facility] Glucose [Mass/Vol] 145 mg/dL High 75-110 [facility] Glucose,Whole Bloodon 2023 Glucose [Mass/Vol] 183 mg/dL High 75-110 [facility] Glucose [Mass/Vol] 116 mg/dL High 75-110 [facility] Glucose [Mass/Vol] 84 mg/dL Normal 75-110 [facility] Glucose [Mass/Vol] 99 mg/dL Normal 75-110 [facility] Glucose,Whole Bloodon 2023 Glucose [Mass/Vol] 113 mg/dL High 75-110 [facility] Glucose [Mass/Vol] 106 mg/dL Normal 75-110 [facility] Glucose [Mass/Vol] 103 mg/dL Normal 75-110 [facility] Glucose [Mass/Vol] 153 mg/dL High 75-110 [facility] B12/Folate Panelon Cobalamin (Vitamin B12) [Mass/Vol] 461 pg/mL Normal 232-1245 [facility] Comment on above: Performed By: #### B 12FOL ####[facility] [place], [place] [id number] lab Director: Norberto Condon MD Folic Acid 12.2 ng/mL Normal 4.8-24.2 [facility] Comment on above: Performed By: #### B 12FOL ####[address] [place] [address] lab Director: Norberto Condon MD Glucose,Whole Bloodon 2023 Glucose [Mass/Vol] 207 mg/dL High -110 [facility] Glucose [Mass/Vol] 180 mg/dL High -110 [facility] Glucose [Mass/Vol] 213 mg/dL High 75-110 [facility] Glucose [Mass/Vol] 138 mg/dL High 75-110 [facility] CBC with Diffon 07-18-2023 Abs. Basophil 0.00 k/uL Normal 0.0-0.2 [facility] Comment on above: Performed By: #### C DP, MG, CP, ALCB ####[facility] [id number], [place] [id number] lab Director: Reji Son DO Abs.Neutrophil (Seg) 7.60 k/uL Normal 1.3-9.1 [facility] Comment on above: Performed By: #### C DP, MG, CP, ALCB ####[facility] [address] [place] [address] Lab Director: Reji Son DO Basophils/100 WBC (Bld) 1 % Normal 0-2 [facility] Comment on above: Performed By: #### C DP, MG, CP, ALCB ####[facility] [address] [place] [address] Lab Director: Reji Son DO Eosinophils (Bld) [#/Vol] 0.10 10*3/uL Normal 0.0-0.4 [facility] Comment on above: Performed By: #### C DP, MG, CP, ALCB ####[facility] [address] [place] [address] Lab Director: Reji Son DO Eosinophils/100 WBC (Bld) 2 % Normal 0-4 [facility] Comment on above: Performed By: #### C DP, MG, CP, ALCB ####[facility] [address] [facility] [place] [address] Lab Director: Reji Son DO Erythrocyte distribution width (RBC) [Ratio] 13.9 % Normal 11.5-14.9 [facility] Comment on above: Performed By: #### C DP, MG, CP, ALCB ####[facility] [address] [facility] [place] [address] Lab Director: Reji Son DO Hematocrit (Bld) [Volume fraction] 42.8 % Normal 41-53 [facility] Comment on above: Performed By: #### C DP, MG, CP, ALCB ####[facility] [address] [place] [address] Lab Director: Reji Son DO Hemoglobin (Bld) [Mass/Vol] 14.4 g/dL Normal 13.5-17.5 [facility] Comment on above: Performed By: #### C DP, MG, CP, ALCB ####[facility] [id number] [facility], [place] [phone] Director: Reji Son DO Lymphocytes (Bld) [#/Vol] 1.20 10*3/uL Normal 1.0-4.8 [facility] Comment on above: Performed By: #### C DP, MG, CP, ALCB ####[facility] [address] [facility].[place], [place] [phone] Director: Reji Son DO Lymphocytes/100 WBC (Bld) 12 % Low 24-44 [facility] Comment on above: Performed By: #### C DP, MG, CP, ALCB ####[address], [place] [address])[phone] Director: Reji Son DO MCH (RBC) [Entitic mass] 30.3 pg Normal 26-34 [facility] Comment on above: Performed By: #### C DP, MG, CP, ALCB ####[facility] [address] [facility], [place] [address])[phone] Director: Reji Son DO MCHC (RBC) [Mass/Vol] 33.7 g/dL Normal 31-37 [facility] Comment on above: Performed By: #### C DP, MG, CP, ALCB ####[facility] [address] [facility].[place], [place] [phone] Director: Reji Son DO MCV (RBC) [Entitic vol] 89.9 fL Normal 80-100 [facility] Comment on above: Performed By: #### C DP, MG, CP, ALCB ####[facility] [address] [place] [address].[place] [address] Lab Director: Reji Son DO Monocytes (Bld) [#/Vol] 0.80 10*3/uL Normal 0.1-1.3 [facility] Comment on above: Performed By: #### C DP, MG, CP, ALCB ####[facility] [address] [place] [address] Lab Director: Reji Son DO Monocytes/100 WBC (Bld) 8 % High 1-7 [facility] Comment on above: Performed By: #### C DP, MG, CP, ALCB ####[facility] [address] [place] [address] Lab Director: Reji Son DO Neutrophil (Seg) 77 % High 36-66 [facility] Comment on above: Performed By: #### C DP, MG, CP, ALCB ####[facility] [address] [facility] [place] [address] Lab Director: Reji Son DO Platelet mean volume (Bld) [Entitic vol] 7.1 fL Normal 6.0-12.0 [facility] Comment on above: Performed By: #### C DP, MG, CP, ALCB ####[facility] [address] [facility] [place] [address] Lab Director: Reji Son DO Platelets (Bld) [#/Vol] 329 10*3/uL Normal 150-450 [facility] Comment on above: Performed By: #### C DP, MG, CP, ALCB ####[facility] [address] [facility] [place] [address] Lab Director: Reji Son DO RBC (Bld) [#/Vol] 4.77 10*6/uL Normal 4.5-5.9 [facility] Comment on above: Performed By: #### C DP, MG, CP, ALCB ####[facility] [address] [place] [address] lab Director: Reji Son DO WBC (Bld) [#/Vol] 9.8 10*3/uL Normal 3.5-11.0 [facility] Comment on above: Performed By: #### C DP, MG, CP, ALCB ####[facility] [address] [facility], [place] [phone] Director: Reji Son DO Comp Metabolic Profon 2023 ALT [Catalytic activity/Vol] U/L Low 5-41 [facility] Comment on above: Performed By: #### C DP, MG, CP, ALCB ####[facility] I[address] [place], [place] [phone] Director: Reji Son DO Albumin [Mass/Vol] 4.0 g/dL Normal 3.5-5.2 [facility] Comment on above: Performed By: #### C DP, MG, CP, ALCB ####[facility] Xwo[address] [place], [place] [phone] Director: Reji Son DO Alkaline Phos 93 U/L Normal 40-129 [facility] Comment on above: Performed By: #### C DP, MG, CP, ALCB ####[facility] [address] [place] [address].[place] [address] Lab Director: Reji Son DO Anion gap [Moles/Vol] 12 mmol/L Normal 9-17 [facility] Comment on above: Performed By: #### C DP, MG, CP, ALCB ####[facility] [address] [facility].[place], [place] [phone] Director: Reji Son DO AST [Catalytic activity/Vol] 16 U/L Normal <40 [facility] Comment on above: Performed By: #### C DP, MG, CP, ALCB ####[facility] [address] [place] [address] Lab Director: Reji Son DO Bilirubin [Mass/Vol] 0.8 mg/dL Normal 0.3-1.2 [facility] Comment on above: Performed By: #### C DP, MG, CP, ALCB ####[facility] [address] [place] [address] Lab Director: Reji Son DO Calcium [Mass/Vol] 9.2 mg/dL Normal 8.6-10.4 [facility] Comment on above: Performed By: #### C DP, MG, CP, ALCB ####[facility] [address] [place] [address] lab Director: Reji Son DO Chloride [Moles/Vol] 104 mmol/L Normal 98-107 [facility] Comment on above: Performed By: #### C DP, MG, CP, ALCB ####[facility] [address] [facility] [place] [address] lab Director: Reji Son DO CO2 [Moles/Vol] 21 mmol/L Normal 20-31 [facility] Comment on above: Performed By: #### C DP, MG, CP, ALCB ####[facility] [address] [place] [address] lab Director: Reji Son DO Creatinine [Mass/Vol] 0.7 mg/dL Normal 0.7-1.2 [facility] Comment on above: Performed By: #### C DP, MG, CP, ALCB ####[facility] [address] [place] [address] lab Director: Reji Son DO GFR/1.73 sq M.predicted among non-blacks MDRD (S/P/Bld) [Vol rate/Area] mL/min/{1.73_m2} Normal >60 [facility] Comment on above: Result Comment: These [...] By: #### C DP, MG, CP, ALCB ####[facility] [address] [facility] [place] [address] Lab Director: Reji Son DO Glucose [Mass/Vol] 161 mg/dL High 70-99 [facility] Comment on above: Performed By: #### C DP, MG, CP, ALCB ####[facility] [address] [facility] [place] [address] Lab Director: Reji Son DO Potassium [Moles/Vol] 4.0 mmol/L Normal 3.7-5.3 [facility] Comment on above: Performed By: #### C DP, MG, CP, ALCB ####[facility] [address] [facility] [place] [address] Lab Director: Reji Son DO Protein [Mass/Vol] 6.5 g/dL Normal 6.4-8.3 [facility] Comment on above: Performed By: #### C DP, MG, CP, ALCB ####[facility] [address] [facility] [place] [address] Lab Director: Reji Son DO Sodium [Moles/Vol] 137 mmol/L Normal 135-144 [facility] Comment on above: Performed By: #### C DP, MG, CP, ALCB ####[facility] [address] [facility] [place] [address] [facility] Director: Reji Son DO Urea nitrogen [Mass/Vol] 16 mg/dL Normal 8-23 [facility] Comment on above: Performed By: #### C DP, MG, CP, ALCB ####[facility] [address] [place] [address] Lab Director: Reji Son DO Drug Scr, Abuse, Uron 2023 Amphetamine(s),Ur Negative Normal NEG [facility] Comment on above: Result Comment: (Positive cutoff 1000 ng/mL) Performed By: #### U AX, JABIER ####[address] [address] [facility] Director: Reji Son DO Barbiturate(s),Ur Negative Normal NEG [facility] Comment on above: Result Comment: (Positive cutoff 200 ng/mL) Performed By: #### U AX, JABIER ####[facility] Lbx[address]5 [place] [address] Lab Director: Reji Son DO Benzodiazepine(s) Negative Normal NEG [facility] Comment on above: Result Comment: (Positive cutoff 200 ng/mL) Performed By: #### U AX, JABIER ####[address] [address] Lab Director: Reji Son DO Cannabinoid(s),Ur Negative Normal NEG [facility] Comment on above: Result Comment: (Positive cutoff 50 ng/mL) Performed By: #### U AX, JABIER ####[facility] [address] [place] [address] Lab Director: Reji Son DO Cocaine Metabolite Negative Normal NEG [facility] Comment on above: Result Comment: (Positive cutoff 300 ng/mL) Performed By: #### U AX, JABIER ####[facility] [address] [place] [address] Lab Director: Reji Son DO Fentanyl, Urine Negative Normal NEG [facility] Comment on above: Result Comment: (Positive cutoff 5 ng/ml) Performed By: #### U AX, JABIER ####[address] [address] Lab Director: Reji Son DO Interpretive Info Assay provides medical screening only. The absence of expected drug(s) and/or Normal [facility] Comment on above: Result Comment: meta bolite(s) may indicate diluted or adulterated urine, limitations of testing or timing of collection. Testing for legal purposes should be confirmed by another method. To request confirmation of test result, please call the lab within 7 days of sample submission. Performed By: #### U AX, JABIER ####[address] [address] Lab Director: Reji Son DO Methadone Ql (U) Negative Normal NEG [facility] Comment on above: Result Comment: (Positive cutoff 300 ng/mL) Performed By: #### U AX, JABIER ####[address] [address] Lab Director: Reji Son DO Opiate(s), Ur Negative Normal NEG [facility] Comment on above: Result Comment: (Positive cutoff 300 ng/mL) Performed By: #### U AX, JABIER ####[facility] [address] [place] [address] Lab Director: Reji Son DO Oxycodone, Urine Negative Normal NEG [facility] Comment on above: Result Comment: (Positive cutoff 100 ng/mL) Performed By: #### U AX, JABIER ####[facility] [address] [place] [address] Lab Director: Reji Son DO Phencyclidine, Ur Negative Normal NEG [facility] Comment on above: Result Comment: (Positive cutoff 25 ng/mL) Performed By: #### U AX, JABIER ####[facility] [address] [place] [address] Lab Director: Reji Son DO Ethanol Alcoholon 07-18-2023 Ethanol [Mass/Vol] mg/dL Normal <10 [facility] Comment on above: Performed By: #### C DP, MG, CP, ALCB ####[facility] [address]zv[address] [place] [address] [facility] Director: Reji Son DO Ethanol percent <0.010 Normal [facility] Comment on above: Performed By: #### C DP, MG, CP, ALCB ####[address] [address] [facility] Director: Reji Son DO Glucose,Whole Bloodon 2023 Glucose [Mass/Vol] 126 mg/dL High 75-110 [facility] Magnesiumon 07-18-2023 Magnesium [Mass/Vol] 1.8 mg/dL Normal 1.6-2.6 [facility] Comment on above: Performed By: #### C DP, MG, CP, ALCB ####[address] [address] [facility] Director: Reji Son DO UA w/Reflex Cultureon 2023 Bilirubin, SemiQt,Ur Negative Normal NEG [facility] Comment on above: Performed By: #### U AX, JABIER ####[facility] [address]az[address] [place] [address] Lab Director: Reji Son DO Blood, Urine Negative Normal NEG [facility] Comment on above: Performed By: #### U AX, JABIER ####[facility] [address] [facility] [place] [address] Lab Director: Reji Son DO Clarity (U) Clear Normal CLEAR [facility] Comment on above: Performed By: #### U AX, JABIER ####[facility] Sib[address] [place] [address] Lab Director: Reji Son DO Color (U) Yellow Normal YEL [facility] Comment on above: Performed By: #### U AX, JABIER ####[facility] [address] [place] [address] Lab Director: Reji Son DO Comment Microscopic exam not performed based on chemical results unless requested in Normal [facility] Comment on above: Result Comment: orig inal order. Performed By: #### U AX, JABIER ####[facility] [id number] [place] [address] Lab Director: Reji Son DO Glucose Ql (U) Negative Normal NEG [facility] Comment on above: Performed By: #### U AX, JABIER ####[address] [place] [address] Lab Director: Reji Son DO Ketones Ql (U) TRACE Abnormal NEG [facility] Comment on above: Performed By: #### U AX, JABIER ####[facility] [address] [place] [address] [place] [address] Lab Director: Reji Son DO Leukocyte esterase Test strip Ql (U) Negative Normal NEG [facility] Comment on above: Performed By: #### U AX, JABIER ####[facility] [address] [place] [address] Lab Director: Reji Son DO Nitrite,Ur Negative Normal NEG [facility] Comment on above: Performed By: #### U AX, JABIER ####[facility] Ago[address] [facility] [place] [address] [facility] Director: Reji Son DO PH,Ur 5.5 Normal 5.0-8.0 [facility] Comment on above: Performed By: #### U AX, JABIER ####[place] [address] [facility] [place] [address] [facility] Director: Reji Son DO Protein Ql (U) Negative Normal NEG [facility] Comment on above: Performed By: #### U AX, JABIER ####[address], [place] [phone] Director: Reji Son DO Spec. Crum Lynne,Ur 1.011 Normal 1.000-1.[address] [facility] [facility] Comment on above: Performed By: #### U AX, JABIER ####[facility] [id number] [facility].[place], [place] [address])[phone] Director: Reji Son DO Urobilinogen,Ur Normal Normal 0.0-1.0 [facility] Comment on above: Performed By: #### U AX, JABIER ####[address], [place] [address])[phone] Director: Reji Son DO Basic Metab w/rfx MGon 06-16 Anion gap [Moles/Vol] 11 mmol/L Normal 9-17 [facility] Comment on above: Performed By: #### B MPX, CDP ####[facility] [id number] [place] [address].[place], [place] [address])[phone] Director: Reji Son DO Calcium [Mass/Vol] 8.6 mg/dL Normal 8.6-10.4 [facility] Comment on above: Performed By: #### B MPX, CDP ####[facility] [id number] [place] [address] Lab Director: Reji Son DO Chloride [Moles/Vol] 103 mmol/L Normal 98-107 [facility] Comment on above: Performed By: #### B MPX, CDP ####[facility] [id number] [facility] [place] [address] Lab Director: Reji Son DO CO2 [Moles/Vol] 23 mmol/L Normal 20-31 [facility] Comment on above: Performed By: #### B MPX, CDP ####[facility] [id number] [facility].[place], [place] [phone] Director: Reji Son DO Creatinine [Mass/Vol] 0.9 mg/dL Normal 0.7-1.2 [facility] Comment on above: Performed By: #### B DAVIDX, TIESHA ####[facility] [id number] [facility] [place] [address] Lab Director: Reji Son DO GFR/1.73 sq M.predicted among non-blacks MDRD (S/P/Bld) [Vol rate/Area] mL/min/{1.73_m2} Normal >60 [facility] Comment on above: Result Comment: These [...] secretion. Performed By: #### B MPX, CDP ####[facility] Tya5623 [facility].[place], [place] [phone] Director: Reji Son DO Glucose [Mass/Vol] 181 mg/dL High 70-99 [facility] Comment on above: Performed By: #### B MPX, CDP ####[facility] [id number] [facility] [place] [address] Lab Director: Reji Son DO Potassium [Moles/Vol] 4.6 mmol/L Normal 3.7-5.3 [facility] Comment on above: Performed By: #### B MPX, CDP ####[facility] [id number] [facility] [place] [address] lab Director: Reji Son DO Sodium [Moles/Vol] 137 mmol/L Normal 135-144 [facility] Comment on above: Performed By: #### B MPX, CDP ####[facility] Rtk2675 [facility] [place] [address] lab Director: Reji Son DO Urea nitrogen [Mass/Vol] 13 mg/dL Normal 8-23 [facility] Comment on above: Performed By: #### B MPX, CDP ####[facility] [id number] [facility] [place] [address] Lab Director: Reji Son DO Basic Metabolic Panel w/ Ref melina to MGon 06-17-2023 Anion gap [Moles/Vol] 11 mmol/L 9 - 17 mmol/L [facility] Calcium [Mass/Vol] 8.6 mg/dL 8.6 - 10. 4 mg/dL [facility] Chloride [Moles/Vol] 103 mmol/L 98 - 10 7 mmol/L [facility] CO2 [Moles/Vol] 23 mmol/L 20 - 31 mmol/L [facility] Creatinine [Mass/Vol] 0.9 mg/dL 0.7 - 1.2 mg/dL [facility] GFR/1.73 sq M.predicted MDRD (S/P/Bld) [Vol rate/Area] - [facility] Comment on above: These results [...] 181 mg/dL High 70 - 99 mg/dL [facility] Interpretation and review of laboratory results Abnormal [facility] Potassium [Moles/Vol] 4.6 mmol/L 3.7 - 5.3 mmol/L [facility] Sodium [Moles/Vol] 137 mmol/L 135 - 144 mmol/L [facility] Urea nitrogen [Mass/Vol] 13 mg/dL 8 - 23 mg/dL [facility] CBC with Auto Differentialon 06-17-2023 Basophils (Bld) [#/Vol] 0.10 10*3/uL [facility] Basophils/100 WBC (Bld) 1 % 0 - 2 % [facility] Eosinophils (Bld) [#/Vol] 0.20 10*3/uL [facility] Eosinophils/100 WBC (Bld) 2 % 0 - 4 % [facility] Erythrocyte distribution width (RBC) [Ratio] 13.6 % 11.5 - 14.9 % [facility] Hematocrit (Bld) [Volume fraction] 46.3 % 41 - 53 % [facility] Hemoglobin (Bld) [Mass/Vol] 14.9 g/dL 13.5 - 17.5 g/dL [facility] Interpretation and review of laboratory results Abnormal [facility] Lymphocytes/100 WBC (Bld) 17 % Low 24 - 44 % [facility] Lymphocytes/100 WBC (Bld) 1.30 % [facility] MCH (RBC) [Entitic mass] 29.2 pg 26 - 34 pg [facility] MCHC (RBC) [Mass/Vol] 32.1 g/dL 31 - 37 g/dL [facility] MCV (RBC) [Entitic vol] 90.9 fL 80 - 100 fL [facility] Monocytes/100 WBC (Bld) 10 % High 1 - 7 % [facility] Monocytes/100 WBC (Bld) 0.70 % [facility] Neutrophils/100 WBC (Bld) 70 % High 36 - 66 % [facility] Platelet mean volume (Bld) [Entitic vol] 7.3 fL 6.0 - 12.0 fL [facility] Platelets (Bld) [#/Vol] 343 10*3/uL [facility] RBC (Bld) [#/Vol] 5.09 10*6/uL 4.5 - 5.9 m/uL [facility] Segmented neutrophils/100 WBC (Bld) 5.30 % [facility] WBC other (Bld) [#/Vol] 7.6 [facility] CBC with Diffon 06-17-2023 Abs. Basophil 0.10 k/uL Normal 0.0-0.2 [facility] Comment on above: Performed By: #### B MPX, CDP ####[facility] Lhy8401 [place] [address] Lab Director: Reji Son DO Abs.Neutrophil (Seg) 5.30 k/uL Normal 1.3-9.1 [facility] Comment on above: Performed By: #### B MPX, CDP ####[facility] Uow4704 [place] [address] Lab Director: Reji Son DO Basophils/100 WBC (Bld) 1 % Normal 0-2 [facility] Comment on above: Performed By: #### B MPX, CDP ####[facility] Ovd3917 [place] [address] Lab Director: Reji Son DO Eosinophils (Bld) [#/Vol] 0.20 10*3/uL Normal 0.0-0.4 [facility] Comment on above: Performed By: #### B MPX, CDP ####[facility] Lzd1387 [place] [address] Lab Director: Reji Son DO Eosinophils/100 WBC (Bld) 2 % Normal 0-4 [facility] Comment on above: Performed By: #### B MPX, CDP ####[facility] Ozn[address] [place] [address] lab Director: Reji Son DO Erythrocyte distribution width (RBC) [Ratio] 13.6 % Normal 11.5-14.9 [facility] Comment on above: Performed By: #### B MPX, CDP ####[facility] Rwm[address] [facility] [place] [address] lab Director: Reji Son DO Hematocrit (Bld) [Volume fraction] 46.3 % Normal 41-53 [facility] Comment on above: Performed By: #### B MPX, CDP ####[facility] Kwc0512 [facility] [place] [address] Lab Director: Reji Son DO Hemoglobin (Bld) [Mass/Vol] 14.9 g/dL Normal 13.5-17.5 [facility] Comment on above: Performed By: #### B MPX, CDP ####[facility] Cef[address]25 [facility] [place] [address] Lab Director: Reji Son DO Lymphocytes (Bld) [#/Vol] 1.30 10*3/uL Normal 1.0-4.8 [facility] Comment on above: Performed By: #### B MPX, CDP ####[facility] Anz[address]290 [facility] [place] [address] Lab Director: Reji Son DO Lymphocytes/100 WBC (Bld) 17 % Low 24-44 [facility] Comment on above: Performed By: #### B MPX, CDP ####[facility] [address], [place] [phone] Director: Reji Son DO MCH (RBC) [Entitic mass] 29.2 pg Normal 26-34 [facility] Comment on above: Performed By: #### B MPX, CDP ####[facility] [address], [place] [phone] Director: Reji Son DO MCHC (RBC) [Mass/Vol] 32.1 g/dL Normal 31-37 [facility] Comment on above: Performed By: #### B MPX, CDP ####[facility] Rxt2073 [facility].[place], [place] [phone] Director: Reji Son DO MCV (RBC) [Entitic vol] 90.9 fL Normal 80-100 [facility] Comment on above: Performed By: #### B MPX, CDP ####[facility] Wln3520 [facility], [place] [phone] Director: Reji Son DO Monocytes (Bld) [#/Vol] 0.70 10*3/uL Normal 0.1-1.3 [facility] Comment on above: Performed By: #### B MPX, CDP ####[facility] Ulq7523 [facility].[place], [place] [phone] Director: Reji Son DO Monocytes/100 WBC (Bld) 10 % High 1-7 [facility] Comment on above: Performed By: #### B MPX, CDP ####[facility] Fus0918 [facility] [place] [address] Lab Director: Reji Son DO Neutrophil (Seg) 70 % High 36-66 [facility] Comment on above: Performed By: #### B MPX, CDP ####[facility] Xvz8100 [facility].[place], [place] [phone] Director: Reji Son DO Platelet mean volume (Bld) [Entitic vol] 7.3 fL Normal 6.0-12.0 [facility] Comment on above: Performed By: #### B MPX, CDP ####[facility] [address], [place] [phone] Director: Reji Son DO Platelets (Bld) [#/Vol] 343 10*3/uL Normal 150-450 [facility] Comment on above: Performed By: #### B MPX, CDP ####[facility] Qwa3238 [facility].[place], [place] [phone] Director: Reji Son DO RBC (Bld) [#/Vol] 5.09 10*6/uL Normal 4.5-5.9 [facility] Comment on above: Performed By: #### Tommy MPX, CDP ####[facility] Nrr9500 [facility].[place], [place] [phone] Director: Reji Son DO WBC (Bld) [#/Vol] 7.6 10*3/uL Normal 3.5-11.0 [facility] Comment on above: Performed By: #### B MPX, CDP ####[facility] [address] [place], [place] [phone] Director: Reji Son DO Cortisolon 06-17-2023 Cortisol 20.2 ug/dL High 2.5-19.5 [facility] Comment on above: Result Comment: Cortisol Reference Range: AM 6.0-18.4 PM 2.7-10.5 Performed By: #### T SH ####[facility] Ntf1327 [place], [place] [phone] Director: Reji Son DO#### T4, CORTI ####[address] [address] Lab Director: Norberto Condon MD EEG awake and asleepon 06-16 Nash Sanders MD 06/17/2023 4:40 PM EEG REPORT CLINICAL NEUROPHYSIOLOGY LABORATORY DEPARTMENT OF NEUROLOGY [facility] Patient: Susie Boyce Age: 72 y.o. Referring [...] epileptiform abnormalities were seen. Nash Sanders MD [facility] Neuroscience [place] [facility] EEG awake and asleepOrdered By: Nash Sanders on 06-17-2023 [facility] Work Phone: Glucose,Whole Bloodon 2023 Glucose [Mass/Vol] 184 mg/dL High 75-110 [facility] Glucose [Mass/Vol] 167 mg/dL High 75-110 [facility] Glucose [Mass/Vol] 178 mg/dL High 75-110 [facility] POC Glucose Fingerstickon Glucose [Mass/Vol] 184 mg/dL High 75 - 110 mg/dL [facility] Interpretation and review of laboratory results Abnormal [facility] Glucose [Mass/Vol] 167 mg/dL High 75 - 110 mg/dL [facility] Interpretation and review of laboratory results Abnormal [facility] Glucose [Mass/Vol] 178 mg/dL High 75 - 110 mg/dL [facility] Interpretation and review of laboratory results Abnormal [facility] T4on 06-17-2023 T4 [Mass/Vol] 7.2 ug/dL 4.5 - 11.7 ug/dL [facility] TSHon 06-17-2023 TSH Qn 1.53 m[IU]/L [facility] Thyroid Stim. Horm.on 2023 Thyroid Stim. Horm. 1.53 uIU/mL Normal 0.30-5.00 [facility] Comment on above: Performed By: #### T ####[facility] Whv[address] [facility] [place] [address] Lab Director: Reji Son DO#### T4, CORTI ####[facility] [place] [address] Lab Director: Norberto Condon MD Thyroxine T4on 06-17-2023 T4 [Mass/Vol] 7.2 ug/dL Normal 4.5-11.7 [facility] Comment on above: Performed By: #### T SH ####[facility] Hyl2436 [facility] [place] [address] lab Director: Reji Son DO#### T4, CORTI ####[facility] [place], [place] [id number] lab Director: Norberto Condon MD Basic Metabolic Panelon 05-29 Anion gap [Moles/Vol] 9 mmol/L 9 - 17 mmol/L [facility] [employer] Calcium [Mass/Vol] 9.0 mg/dL 8.6 - 10. 4 mg/dL [facility] Chloride [Moles/Vol] 103 mmol/L 98 - 10 7 mmol/L [facility] CO2 [Moles/Vol] 26 mmol/L 20 - 31 mmol/L [facility] Creatinine [Mass/Vol] 0.8 mg/dL 0.7 - 1.2 mg/dL [facility] GFR/1.73 sq M.predicted MDRD (S/P/Bld) [Vol rate/Area] - [facility] Comment on above: These results [...] [Mass/Vol] 91 mg/dL 70 - 99 mg/dL [facility] Potassium [Moles/Vol] 4.2 mmol/L 3.7 - 5.3 mmol/L [facility] Sodium [Moles/Vol] 138 mmol/L 135 - 144 mmol/L [facility] Urea nitrogen [Mass/Vol] 14 mg/dL 8 - 23 mg/dL [facility] Basic Metabolic Profon 06-15 Anion gap [Moles/Vol] 9 mmol/L Normal 9-17 [facility] Comment on above: Performed By: #### B CLIENT SERVICES COORDINATOR, CDP, BMP, TROPI ####[facility] Urw0936 [facility] [place] [address] Lab Director: Reji Son DO Calcium [Mass/Vol] 9.0 mg/dL Normal 8.6-10.4 [facility] Comment on above: Performed By: #### B CLIENT SERVICES COORDINATOR, CDP, BMP, TROPI ####[facility] [id number] [facility] [place] [address] Lab Director: Reji Son DO Chloride [Moles/Vol] 103 mmol/L Normal 98-107 [facility] Comment on above: Performed By: #### B CLIENT SERVICES COORDINATOR, CDP, BMP, TROPI ####[facility] Hmr8125 [facility] [place] [address] lab Director: Reji Son DO CO2 [Moles/Vol] 26 mmol/L Normal 20-31 [facility] Comment on above: Performed By: #### B CLIENT SERVICES COORDINATOR, CDP, BMP, TROPI ####[facility] Lfd5329 [facility] [place] [address] Lab Director: Reji Son DO Creatinine [Mass/Vol] 0.8 mg/dL Normal 0.7-1.2 [facility] Comment on above: Performed By: #### B CLIENT SERVICES COORDINATOR, CDP, BMP, TROPI ####[facility] Jvl8794 [facility] [place] [address] Lab Director: Reji Son DO GFR/1.73 sq M.predicted among non-blacks MDRD (S/P/Bld) [Vol rate/Area] mL/min/{1.73_m2} Normal >60 [facility] Comment on above: Result Comment: These [...] renal tubular secretion. Performed By: #### B CLIENT SERVICES COORDINATOR, CDP, BMP, TROPI ####[facility] [id number] [facility] [place] [address] Lab Director: Reji Son DO Glucose [Mass/Vol] 91 mg/dL Normal 70-99 [facility] Comment on above: Performed By: #### B CLIENT SERVICES COORDINATOR, CDP, BMP, TROPI ####[facility] [id number] [facility] [place] [address] Lab Director: Reji Son DO Potassium [Moles/Vol] 4.2 mmol/L Normal 3.7-5.3 [facility] Comment on above: Performed By: #### B CLIENT SERVICES COORDINATOR, CDP, BMP, TROPI ####[facility] [id number] [facility] [place] [address] Lab Director: Reji Son DO Sodium [Moles/Vol] 138 mmol/L Normal 135-144 [facility] Comment on above: Performed By: #### B CLIENT SERVICES COORDINATOR, CDP, BMP, TROPI ####[facility] Sif0346 [facility] [place] [address] Lab Director: Reji Son DO Urea nitrogen [Mass/Vol] 14 mg/dL Normal 8-23 [facility] Comment on above: Performed By: #### B CLIENT SERVICES COORDINATOR, CDP, BMP, TROPI ####[facility] She6721 [facility] [place] [address] Lab Director: Reji Son DO Brain Natri. Peptideon 06-15 Natriuretic peptide B (Bld) [Mass/Vol] 105 pg/mL Normal <300 [facility] Comment on above: Result Comment: An age-independent cutoff point of 300 pg/ml has a 98% negative predictive value excluding acute heart failure. Performed By: #### B CLIENT SERVICES COORDINATOR, CDP, BMP, TROPI ####[facility] [id number] [facility] [place] [address] Lab Director: Reji Son DO Brain Natriuretic Peptideon 06-16-2023 Natriuretic peptide B (Bld) [Mass/Vol] 105 pg/mL NINF - 300 pg/mL [facility] Comment on above: An age-independent cutoff point of 300 pg/ml has a 98% negative predictive value excluding acute heart failure. [facility] CBC with Auto Differentialon 06-16-2023 Basophils (Bld) [#/Vol] 0.00 10*3/uL [facility] Basophils/100 WBC (Bld) 1 % 0 - 2 % [facility] Eosinophils (Bld) [#/Vol] 0.20 10*3/uL [facility] Eosinophils/100 WBC (Bld) 2 % 0 - 4 % [facility] Erythrocyte distribution width (RBC) [Ratio] 14.1 % 11.5 - 14.9 % [facility] Hematocrit (Bld) [Volume fraction] 46.1 % 41 - 53 % [facility] Hemoglobin (Bld) [Mass/Vol] 15.0 g/dL 13.5 - 17.5 g/dL [facility] Interpretation and review of laboratory results Abnormal [facility] Lymphocytes/100 WBC (Bld) 14 % Low 24 - 44 % [facility] Lymphocytes/100 WBC (Bld) 1.00 % [facility] MCH (RBC) [Entitic mass] 29.5 pg 26 - 34 pg [facility] MCHC (RBC) [Mass/Vol] 32.5 g/dL 31 - 37 g/dL [facility] MCV (RBC) [Entitic vol] 90.5 fL 80 - 100 fL [facility] Monocytes/100 WBC (Bld) 9 % High 1 - 7 % [facility] Monocytes/100 WBC (Bld) 0.70 % [facility] Neutrophils/100 WBC (Bld) 74 % High 36 - 66 % [facility] Platelet mean volume (Bld) [Entitic vol] 7.4 fL 6.0 - 12.0 fL [facility] Platelets (Bld) [#/Vol] 342 10*3/uL [facility] RBC (Bld) [#/Vol] 5.09 10*6/uL 4.5 - 5.9 m/uL [facility] Segmented neutrophils/100 WBC (Bld) 5.60 % [facility] WBC other (Bld) [#/Vol] 7.5 [facility] CBC with Diffon 06-16-2023 Abs. Basophil 0.00 k/uL Normal 0.0-0.2 [facility] Comment on above: Performed By: #### B CLIENT SERVICES COORDINATOR, CDP, BMP, TROPI ####[facility] Cnt0132 [place] [address] Lab Director: Reji Son DO Abs.Neutrophil (Seg) 5.60 k/uL Normal 1.3-9.1 [facility] Comment on above: Performed By: #### B CLIENT SERVICES COORDINATOR, CDP, BMP, TROPI ####[facility] Ztg6048 [place] [address] Lab Director: Reji Son DO Basophils/100 WBC (Bld) 1 % Normal 0-2 [facility] Comment on above: Performed By: #### B CLIENT SERVICES COORDINATOR, CDP, BMP, TROPI ####[facility] Sat6090 [place] [address] Lab Director: Reji Son DO Eosinophils (Bld) [#/Vol] 0.20 10*3/uL Normal 0.0-0.4 [facility] Comment on above: Performed By: #### B CLIENT SERVICES COORDINATOR, CDP, BMP, TROPI ####[facility] Lat[address] [facility] [place] [address] [facility] Director: Reji Son DO Eosinophils/100 WBC (Bld) 2 % Normal 0-4 [facility] Comment on above: Performed By: #### B CLIENT SERVICES COORDINATOR, CDP, BMP, TROPI ####[facility] [id number] [facility] [place] [address] [facility] Director: Reji Son DO Erythrocyte distribution width (RBC) [Ratio] 14.1 % Normal 11.5-14.9 [facility] Comment on above: Performed By: #### B CLIENT SERVICES COORDINATOR, CDP, BMP, TROPI ####[facility] Cqu6392 [facility] [place] [address] [facility] Director: Reji Son DO Hematocrit (Bld) [Volume fraction] 46.1 % Normal 41-53 [facility] Comment on above: Performed By: #### B CLIENT SERVICES COORDINATOR, CDP, BMP, TROPI ####[place] [address] [facility] [place] [address] [facility] Director: Reji Son DO Hemoglobin (Bld) [Mass/Vol] 15.0 g/dL Normal 13.5-17.5 [facility] Comment on above: Performed By: #### B CLIENT SERVICES COORDINATOR, CDP, BMP, TROPI ####[facility] [id number] [place] [address].[place] [address] Lab Director: Reji Son DO Lymphocytes (Bld) [#/Vol] 1.00 10*3/uL Normal 1.0-4.8 [facility] Comment on above: Performed By: #### B CLIENT SERVICES COORDINATOR, CDP, BMP, TROPI ####[facility] [address] [place] [address] Lab Director: Reji Son DO Lymphocytes/100 WBC (Bld) 14 % Low 24-44 [facility] Comment on above: Performed By: #### B CLIENT SERVICES COORDINATOR, CDP, BMP, TROPI ####[facility] Irq4185 [facility], [place] [phone] Director: Reji Son DO MCH (RBC) [Entitic mass] 29.5 pg Normal 26-34 [facility] Comment on above: Performed By: #### B CLIENT SERVICES COORDINATOR, CDP, BMP, TROPI ####[facility] Fiz4804 [facility], [place] [phone] Director: Reji Son DO MCHC (RBC) [Mass/Vol] 32.5 g/dL Normal 31-37 [facility] Comment on above: Performed By: #### B CLIENT SERVICES COORDINATOR, CDP, BMP, TROPI ####[facility] Ozc2585 [facility] [place] [address] Lab Director: Reji Son DO MCV (RBC) [Entitic vol] 90.5 fL Normal 80-100 [facility] Comment on above: Performed By: #### B CLIENT SERVICES COORDINATOR, CDP, BMP, TROPI ####[facility] Nml0029 [facility] [place] [address] Lab Director: Reji Son DO Monocytes (Bld) [#/Vol] 0.70 10*3/uL Normal 0.1-1.3 [facility] Comment on above: Performed By: #### B CLIENT SERVICES COORDINATOR, CDP, BMP, TROPI ####[facility] [id number] [facility] [place] [address] Lab Director: Reji Son DO Monocytes/100 WBC (Bld) 9 % High 1-7 [facility] Comment on above: Performed By: #### B CLIENT SERVICES COORDINATOR, CDP, BMP, TROPI ####[facility] [address], [place] [phone] Director: Reji Son DO Neutrophil (Seg) 74 % High 36-66 [facility] Comment on above: Performed By: #### B CLIENT SERVICES COORDINATOR, CDP, BMP, TROPI ####[facility] [id number], [place] [phone] Director: Reji Son DO Platelet mean volume (Bld) [Entitic vol] 7.4 fL Normal 6.0-12.0 [facility] Comment on above: Performed By: #### B CLIENT SERVICES COORDINATOR, CDP, BMP, TROPI ####[facility] Hlc[address]250 [facility] Center.[place], [place] [phone] Director: Reji Son DO Platelets (Bld) [#/Vol] 342 10*3/uL Normal 150-450 [facility] Comment on above: Performed By: #### B CLIENT SERVICES COORDINATOR, CDP, BMP, TROPI ####[facility] [id number] [facility].[place], [place] [phone] Director: Reji Son DO RBC (Bld) [#/Vol] 5.09 10*6/uL Normal 4.5-5.9 [facility] Comment on above: Performed By: #### B CLIENT SERVICES COORDINATOR, CDP, BMP, TROPI ####[facility] [id number] [facility].[place], [place] [phone] Director: Reji Son DO WBC (Bld) [#/Vol] 7.5 10*3/uL Normal 3.5-11.0 [facility] Comment on above: Performed By: #### B CLIENT SERVICES COORDINATOR, CDP, BMP, TROPI ####[facility] [id number] [facility].[place], [place] [phone] Director: Reji Son DO Glucose,Whole Bloodon 2023 Glucose [Mass/Vol] 171 mg/dL High 75-110 [facility] Glucose [Mass/Vol] 92 mg/dL Normal 75-110 [facility] POC Glucose Fingerstickon Glucose [Mass/Vol] 171 mg/dL High 75 - 110 mg/dL [facility] Interpretation and review of laboratory results Abnormal [facility] Glucose [Mass/Vol] 92 mg/dL 75 - 110 mg/dL [facility] Portable XR Chest AP single viewon [...] identified. IMPRESSION: No acute airspace disease identified. [facility] Radiology Study observation (narrative) [facility] Portable XR Chest AP single viewOrdered By: Betito Williamson on 06-16-2023 [facility] Work Phone: Troponinon 06-16-2023 Troponin I.cardiac High sensitivity method [Mass/Vol] 15 ng/L 0 - 22 ng/L [facility] Comment on above: High Sensitivity Tro ponin values cannot be compared with other Troponin methodologies. [facility] Troponin, High Sens 15 ng/L Normal 0-22 [facility] Comment on above: Result Comment: High Sensitivity Troponin values cannot be compared with other Troponin methodologies. Performed By: #### T ROPI ####[facility] [id number] [place] [address] Lab Director: Reji Son DO Troponin I.cardiac High sensitivity method [Mass/Vol] 17 ng/L 0 - 22 ng/L [facility] Comment on above: High Sensitivity Tro ponin values cannot be compared with other Troponin methodologies. [facility] Troponin, High Sens 17 ng/L Normal 0-22 [facility] Comment on above: Result Comment: High Sensitivity Troponin values cannot be compared with other Troponin methodologies. Performed By: #### B CLIENT SERVICES COORDINATOR, CDP, BMP, TROPI ####[facility] [id number] [place] [address] [facility] Director: Reji Son DO XR CHEST PORTABLEon [...] Betito Williamson MD 06/16/23 Final result Normal [facility] BASIC METABOLIC PANLon 04-20 Anion gap [Moles/Vol] 9 mmol/L Normal 5-15 [facility] Comment on above: Performed By: #### C BCA, BMP, 3040-3, LIVR #### [facility] ([id number]) [address], [address] [place] [address] Calcium [Mass/Vol] 8.6 mg/dL Normal 8.5-10.5 [facility] Comment on above: Performed By: #### C BCA, BMP, 3040-3, LIVR #### [facility] ([id number]) [address], [address] [place] [address] Chloride [Moles/Vol] 104 mmol/L Normal 98-109 [facility] Comment on above: Performed By: #### C BCA, BMP, 3040-3, LIVR #### [facility] ([id number]) [address], [address] [place] [address] CO2 [Moles/Vol] 24 mmol/L Normal 22-32 [facility] Comment on above: Performed By: #### C BCA, BMP, 3040-3, LIVR #### [facility] ([id number]) [address], [facility] [address] [place] [address] Creatinine [Mass/Vol] 0.87 mg/dL Normal 0.60-1.30 [facility] Comment on above: Result Comment: METH OD TRACEABLE TO IDMS STANDARD Performed By: #### C MARIA ISABEL, BMP, 3040-3, LIVR #### [facility] ([id number]) [address], [address] [place] [address] eGFR (CKD-EPI) NON-RACE DEPENDENT >90 Normal >59 [facility] Comment on above: Result Comment: Reported eGFR is based on the CKD-EPI 2020 equation that does not use a race coefficient. Performed By: #### C BCA, BMP, 3040-3, LIVR #### [facility] ([id number]) [address], [address] [place] [address] Glucose [Mass/Vol] 178 mg/dL High 65-99 [facility] Comment on above: Performed By: #### C BCA, BMP, 3040-3, LIVR #### [facility] ([id number]) [address], [address] [place] [address] Potassium [Moles/Vol] 4.3 mmol/L Normal 3.5-5.0 [facility] Comment on above: Performed By: #### C DARREN NICOLAS, 3039-04, LIVR #### [facility] ([id number]) [address], [address] [place] [address] Sodium [Moles/Vol] 137 mmol/L Normal 134-146 [facility] Comment on above: Performed By: #### C DARREN NICOLAS, 3039-04, LIVR #### [facility] ([id number]) [address], [address] [place] [address] Urea nitrogen [Mass/Vol] 16 mg/dL Normal 5-27 [facility] Comment on above: Performed By: #### C DARREN NICOLAS, 3039-04, LIVR #### [facility] ([id number]) [address], [address] [place] [address] CBC AND AUTO DIFFon 04-20-19 24 ABSOLUTE BASOPHIL 0.1 X10E9/L Normal 0.0-0.2 [facility] Comment on above: Performed By: #### C DARREN NICOLAS, 3039-04, LIVR #### [facility] ([id number]) [address], [address] [place] [address] ABSOLUTE NEUTROPHIL 9.9 X10E9/L High 1.5-6.6 [facility] Comment on above: Performed By: #### C DARREN NICOLAS, 3039-04, LIVR #### [facility] ([id number]) [address], [address] [place] [address] Basophils/100 WBC (Bld) 0.5 % Normal [facility] Comment on above: Performed By: #### C DARREN NICOLAS, 3, LIVR #### [facility] ([id number]) [address], [address] [place] [address] Eosinophils (Bld) [#/Vol] 0.2 10*3/uL Normal 0.0-0.4 [facility] Comment on above: Performed By: #### C DARREN NICOLAS, 3039-3, LIVR #### [facility] ([id number]) [address], [address] [place] [address] Eosinophils/100 WBC (Bld) 1.7 % Normal [facility] Comment on above: Performed By: #### C DARREN NICOLAS, 3039-3, LIVR #### [facility] ([id number]) [address], [facility] [address] [place] [address] Erythrocyte distribution width (RBC) [Ratio] 13.4 % Normal 11.5-15.0 [facility] Comment on above: Performed By: #### C DARREN NICOLAS, 3, LIVR #### [facility] ([id number]) [address], [facility] [address] [place] [address] Hematocrit (Bld) [Volume fraction] 46.4 % Normal 39-49 [facility] Comment on above: Performed By: #### C DARREN NICOLAS, 3039-04, LIVR #### [facility] ([id number]) [address], [facility] [address] [place] [address] Hemoglobin (Bld) [Mass/Vol] 15.6 g/dL Normal 13.0-17.0 [facility] Comment on above: Performed By: #### C DARREN NICOLAS, 3, LIVR #### [facility] ([id number]) [address], [facility] [address] [place] [address] Lymphocytes (Bld) [#/Vol] 1.5 10*3/uL Normal 1.0-3.5 [facility] Comment on above: Performed By: #### C MARIA ISABEL, BMP, 0-3, LIVR #### [facility] ([id number]) [address], [facility] [address] [place] [address] Lymphocytes/100 WBC (Bld) 12.3 % Normal [facility] Comment on above: Performed By: #### C MARIA ISABEL BMP, 0-3, LIVR #### [facility] ([id number]) [address], [address] [place] [address] MCH (RBC) [Entitic mass] 29.8 pg Normal 27-34 [facility] Comment on above: Performed By: #### C MARIA ISABEL BMP, 0-3, LIVR #### [facility] ([id number]) [address], [address] [place] [address] MCHC (RBC) [Mass/Vol] 33.6 g/dL Normal 32-36 [facility] Comment on above: Performed By: #### C MARIA ISABEL, BMP, 3039-3, LIVR #### [facility] ([id number]) [address], [facility] [address] [place] [address] MCV (RBC) [Entitic vol] 89 fL Normal 80-100 [facility] Comment on above: Performed By: #### C MARIA ISABEL, BMP, 3039-3, LIVR #### [facility] ([id number]) [address], [address] [place] [address] Monocytes (Bld) [#/Vol] 0.9 10*3/uL Normal 0-0.9 [facility] Comment on above: Performed By: #### C MARIA ISABEL BMP, 0-3, LIVR #### [facility] ([id number]) [address], [facility] [address] [place] [address] Monocytes/100 WBC (Bld) 7.0 % Normal [facility] Comment on above: Performed By: #### C MARIA ISABEL, BMP, 0-3, LIVR #### [facility] ([id number]) [address], [address] [place] [address] Neutrophils/100 WBC (Bld) 78.5 % Normal [facility] Comment on above: Performed By: #### C MARIA ISABEL, BMP, 0-3, LIVR #### [facility] ([id number]) [address], [address] [place] [address] Platelet mean volume (Bld) [Entitic vol] 7.4 fL Normal 7-12 [facility] Comment on above: Performed By: #### C MARIA ISABEL, BMP, 0-3, LIVR #### [facility] ([id number]) [address], [address] [place] [address] Platelets (Bld) [#/Vol] 442 10*3/uL Normal 150-450 [facility] Comment on above: Performed By: #### C MARIA ISABEL, BMP, 3039-3, LIVR #### [facility] ([id number]) [address], [address] [place] [address] RBC COUNT 5.23 X10E12/L Normal 4.10-5.70 [facility] Comment on above: Performed By: #### C MARIA ISABEL, BMP, 0-3, LIVR #### [facility] ([id number]) [address], [address] [place] [address] WBC (Bld) [#/Vol] 12.5 10*3/uL High 4.0-11.0 [facility] Comment on above: Performed By: #### C MARIA ISABEL, BMP, 0-3, LIVR #### [facility] ([id number]) [address], [address] [place] [address] Glucose Glucometer (BldC) [M ass/Vol]on 04-20-2023 Glucose [Mass/Vol] 269 mg/dL High 65-99 [facility] Glucose [Mass/Vol] 162 mg/dL High 65-99 [facility] BASIC METABOLIC PANLon 04-19 Anion gap [Moles/Vol] 12 mmol/L Normal 5-15 [facility] Comment on above: Performed By: #### C BCA, BMP, 3040-3, LIVR #### [facility] ([id number]) [address], [address] [place] [address] Calcium [Mass/Vol] 9.2 mg/dL Normal 8.5-10.5 [facility] Comment on above: Performed By: #### C BCA, BMP, 3040-3, LIVR #### [facility] ([id number]) [address], [facility] [address] [place] [address] Chloride [Moles/Vol] 103 mmol/L Normal 98-109 [facility] Comment on above: Performed By: #### C BCA, BMP, 3040-3, LIVR #### [facility] ([id number]) [address], [facility] [address] [place] [address] CO2 [Moles/Vol] 25 mmol/L Normal 22-32 [facility] Comment on above: Performed By: #### C BCA, BMP, 3040-3, LIVR #### [facility] ([id number]) [address], [facility] [address] [place] [address] Creatinine [Mass/Vol] 0.93 mg/dL Normal 0.60-1.30 [facility] Comment on above: Result Comment: METH OD TRACEABLE TO IDMS STANDARD Performed By: #### C BCA, BMP, 3040-3, LIVR #### [facility] ([id number]) [address] [address] [place] [address] GFR/1.73 sq M.predicted among non-blacks MDRD (S/P/Bld) [Vol rate/Area] 87 mL/min/{1.73_m2} Normal >59 [facility] Comment on above: Result Comment: Reported eGFR is based on the CKD-EPI 2020 equation that does not use a race coefficient. Performed By: #### C BCA, BMP, 3040-3, LIVR #### [facility] ([id number]) [address], [address] [place] [address] Glucose [Mass/Vol] 129 mg/dL High 65-99 [facility] Comment on above: Performed By: #### C MARIA ISABEL BMP, 3040-3, LIVR #### [facility] ([id number]) [address], [address] [place] [address] Potassium [Moles/Vol] 3.8 mmol/L Normal 3.5-5.0 [facility] Comment on above: Performed By: #### C MARIA ISABEL, BMP, 0-3, LIVR #### [facility] ([id number]) [address], [address] [place] [address] Sodium [Moles/Vol] 140 mmol/L Normal 134-146 [facility] Comment on above: Performed By: #### C MARIA ISABEL, BMP, 3039-3, LIVR #### [facility] ([id number]) [address], [address] [place] [address] Urea nitrogen [Mass/Vol] 14 mg/dL Normal 5-27 [facility] Comment on above: Performed By: #### C BCA, BMP, 3039-3, LIVR #### [facility] ([id number]) [address], [facility] [address] [place] [address] CBC AND AUTO DIFFon 04-19-19 24 ABSOLUTE BASOPHIL 0.0 X10E9/L Normal 0.0-0.2 [facility] Comment on above: Performed By: #### C BCA, BMP, 3040-3, LIVR #### [facility] ([id number]) [address] [address] [place] [address] ABSOLUTE NEUTROPHIL 10.0 X10E9/L High 1.5-6.6 [facility] Comment on above: Performed By: #### C BCA, BMP, 3040-3, LIVR #### [facility] ([id number]) [address], [address] [place] [address] Basophils/100 WBC (Bld) 0.2 % Normal [facility] Comment on above: Performed By: #### C MARIA ISABEL BMP, 3039-3, LIVR #### [facility] ([id number]) [address], [address] [place] [address] Eosinophils (Bld) [#/Vol] 0.2 10*3/uL Normal 0.0-0.4 [facility] Comment on above: Performed By: #### C MARIA ISABEL, BMP, 3039-3, LIVR #### [facility] ([id number]) [address] [place] [address] Eosinophils/100 WBC (Bld) 1.4 % Normal [facility] Comment on above: Performed By: #### C MARIA ISABEL, BMP, 3039-3, LIVR #### [facility] ([id number]) [address], [address] [place] [address] Erythrocyte distribution width (RBC) [Ratio] 13.4 % Normal 11.5-15.0 [facility] Comment on above: Performed By: #### C MARIA ISABEL, BMP, 3039-3, LIVR #### [facility] ([id number]) [address], [facility] [address] [place] [address] Hematocrit (Bld) [Volume fraction] 46.3 % Normal 39-49 [facility] Comment on above: Performed By: #### C BCA, BMP, 0-3, LIVR #### [facility] ([id number]) [address], [address] [place] [address] Hemoglobin (Bld) [Mass/Vol] 15.6 g/dL Normal 13.0-17.0 [facility] Comment on above: Performed By: #### C BCA, BMP, 3040-3, LIVR #### [facility] ([id number]) [address], [address] [place] [address] Lymphocytes (Bld) [#/Vol] 1.7 10*3/uL Normal 1.0-3.5 [facility] Comment on above: Performed By: #### C MARIA ISABEL, BMP, 0-3, LIVR #### [facility] ([id number]) [address], [facility] [address] [place] [address] Lymphocytes/100 WBC (Bld) 13.3 % Normal [facility] Comment on above: Performed By: #### C MARIA ISABEL, BMP, 3039-3, LIVR #### [facility] ([id number]) [address], [facility] [address] [place] [address] MCH (RBC) [Entitic mass] 30.1 pg Normal 27-34 [facility] Comment on above: Performed By: #### C MARIA ISABEL, BMP, 3039-3, LIVR #### [facility] ([id number]) [address] [place] [address] MCHC (RBC) [Mass/Vol] 33.7 g/dL Normal 32-36 [facility] Comment on above: Performed By: #### C MARIA ISABEL, BMP, 3039-3, LIVR #### [facility] ([id number]) [address], [address] [address] MCV (RBC) [Entitic vol] 89 fL Normal 80-100 [facility] Comment on above: Performed By: #### C MARIA ISABEL, BMP, 0-3, LIVR #### [facility] ([id number]) [address], [facility] [address] [place] [address] Monocytes (Bld) [#/Vol] 1.0 10*3/uL High 0-0.9 [facility] Comment on above: Performed By: #### C MARIA ISABEL, BMP, 0-3, LIVR #### [facility] ([id number]) [address], [address] [place] [address] Monocytes/100 WBC (Bld) 7.9 % Normal [facility] Comment on above: Performed By: #### C MARIA ISABEL, BMP, 3040-3, LIVR #### [facility] ([id number]) [address], [facility] [address] [place] [address] Neutrophils/100 WBC (Bld) 77.2 % Normal [facility] Comment on above: Performed By: #### C MARIA ISABEL, BMP, 3040-3, LIVR #### [facility] ([id number]) [address] [place] [address] Platelet mean volume (Bld) [Entitic vol] 7.2 fL Normal 7-12 [facility] Comment on above: Performed By: #### C MARIA ISABEL, BMP, 3040-3, LIVR #### [facility] ([id number]) [address] [place] [address] Platelets (Bld) [#/Vol] 470 10*3/uL High 150-450 [facility] Comment on above: Performed By: #### C MARIA ISABEL, BMP, 3040-3, LIVR #### [facility] ([id number]) [address] [address] [place] [address] RBC COUNT 5.20 X10E12/L Normal 4.10-5.70 [facility] Comment on above: Performed By: #### C MARIA ISABEL, BMP, 3040-3, LIVR #### [facility] ([id number]) [address], [address] [place] [address] WBC (Bld) [#/Vol] 12.9 10*3/uL High 4.0-11.0 [facility] Comment on above: Performed By: #### C MARIA ISABEL, BMP, 3040-3, LIVR #### [facility] ([id number]) [address] [place] [address], [address] [place] [address] Glucose Glucometer (BldC) [M ass/Vol]on 04-19-2023 Glucose [Mass/Vol] 232 mg/dL High 65-99 [facility] Glucose [Mass/Vol] 123 mg/dL High 65-99 [facility] Glucose [Mass/Vol] 129 mg/dL High 65-99 [facility] Surgical Pathologyon 024 Surgical Pathology Normal [facility] Comment on above: Result Comment: [facility] [address] [place] [address] Surgical Pathology Consultation Patient Name:SUSIE BOYCE:1950 (Age: 72)Gender:MTaken:4Reported:04/21/2023hysician(s):Andrzej Fine MD ( )Copy To: Rec. #:[id number]: #[id number] Final Pathologic Diagnosis 1. Cecal colon polyp: Tubular adenoma. 2. Colon, random biopsy: Hyperplastic polyp fragments. 3. Ascending colon polyp: Tubular adenoma. 4. Descending colon polyp: Tubular adenoma. Report Electronically Signed Out st04/21/2023Lorin Campos MD Interpretation performed at [facility], [address] [place] [address], License number: [id number]. Clinical History Melena. 2. Rule out microscopic colitis. Gross Description 1. Received in formalin labeled [facility], #1: Cecal colon polyp are 2 lockett bits of soft tissue, each 0.3 cm in greatest dimension. Filtered and submitted in a single cassette. (1, ns, [id number], m7) MG 2. Received in formalin labeled [facility], #2: Random colon biopsy rule out microscopic colitis are 8 lockett bits/strips of soft tissue, ranging from 0.2-0.7 cm in greatest dimension. Filtered and submitted in a single cassette. (1, ns, [id number], m7) MG 3. [facility], #[facility]: Ascending colon polyp are 4 lockett bits/strips of soft tissue, ranging from 0.1-0.6 cm in greatest dimension. Filtered and submitted in a single cassette. (1, ns, [id number], m7) MG 4. Received in formalin labeled [facility], #4: Descending colon polyp are 3 lockett bits of soft tissue, ranging from 0.4-0.5 cm in greatest dimension. Filtered and submitted in a single cassette. (1, ns, [id number], m7) MG mjg/04/19/2023EAK Specimen(s) Received 1: Cecal colon polyp 2: Colon, random biopsy 3: Ascending colon polyp 4: Descending colon polyp Fee Codes(s): 1; 53982 2; 99465 3; 23085 4; 57183 BASIC METABOLIC PANLon 04-18 Anion gap [Moles/Vol] 7 mmol/L Normal 5-15 [facility] Comment on above: Performed By: #### C BCA, BMP, 3040-3, LIVR #### [facility] ([id number]) [address], [address] [place] [address] Calcium [Mass/Vol] 8.8 mg/dL Normal 8.5-10.5 [facility] Comment on above: Performed By: #### C BCA, BMP, 3040-3, LIVR #### [facility] ([id number]) [address], [address] [place] [address] Chloride [Moles/Vol] 102 mmol/L Normal 98-109 [facility] Comment on above: Performed By: #### C BCA, BMP, 3040-3, LIVR #### [facility] ([id number]) [address], [address] [place] [address] CO2 [Moles/Vol] 29 mmol/L Normal 22-32 [facility] Comment on above: Performed By: #### C BCA, BMP, 3040-3, LIVR #### [facility] ([id number]) [address], [address] [place] [address] Creatinine [Mass/Vol] 0.90 mg/dL Normal 0.60-1.30 [facility] Comment on above: Result Comment: METH OD TRACEABLE TO IDMS STANDARD Performed By: #### C BCA, BMP, 3040-3, LIVR #### [facility] ([id number]) [address], [facility] [address] [place] [address] eGFR (CKD-EPI) NON-RACE DEPENDENT >90 Normal >59 [facility] Comment on above: Result Comment: Reported eGFR is based on the CKD-EPI 2020 equation that does not use a race coefficient. Performed By: #### C BCA, BMP, 3040-3, LIVR #### [facility] ([id number]) [address], [address] [place] [address] Glucose [Mass/Vol] 146 mg/dL High 65-99 [facility] Comment on above: Performed By: #### C BCA, BMP, 3040-3, LIVR #### [facility] ([id number]) [address] [place] [address] Potassium [Moles/Vol] 3.9 mmol/L Normal 3.5-5.0 [facility] Comment on above: Performed By: #### C BCA, BMP, 3040-3, LIVR #### [facility] ([id number]) [address], [address] [place] [address] Sodium [Moles/Vol] 138 mmol/L Normal 134-146 [facility] Comment on above: Performed By: #### C BCA, BMP, 3040-3, LIVR #### [facility] ([id number]) [address] [address] [place] [address] Urea nitrogen [Mass/Vol] 15 mg/dL Normal 5-27 [facility] Comment on above: Performed By: #### C BCA, BMP, 3040-3, LIVR #### [facility] ([id number]) [address], [address] [place] [address] C DIFFICILE BY PCRon 024 C. difficile toxin genes EVA+probe Ql (Stl) TOXIGENIC C DIFF Negative (qualifier value) 027 NAP1 Negative (qualifier value) Normal PRNEG [facility] Comment on above: Performed By: #### C DARREN NICOLAS, 3, LIVR #### [facility] ([id number]) [address], [address] [place] [address] CBC AND AUTO DIFFon 04-18-19 24 ABSOLUTE BASOPHIL 0.1 X10E9/L Normal 0.0-0.2 [facility] Comment on above: Performed By: #### DARREN Springer BCA, 3, LIVR #### [facility] ([id number]) [address], [address] [place] [address] ABSOLUTE NEUTROPHIL 10.0 X10E9/L High 1.5-6.6 [facility] Comment on above: Performed By: #### DARREN Springer BCA, 3, LIVR #### [facility] ([id number]) [address], [address] [place] [address] Basophils/100 WBC (Bld) 0.8 % Normal [facility] Comment on above: Performed By: #### C DARREN NICOLAS, 3, LIVR #### [facility] ([id number]) [address], [address] [place] [address] Eosinophils (Bld) [#/Vol] 0.2 10*3/uL Normal 0.0-0.4 [facility] Comment on above: Performed By: #### C DARREN NICOLAS, 3039-3, LIVR #### [facility] ([id number]) [address] [address] [place] [address] Eosinophils/100 WBC (Bld) 1.4 % Normal [facility] Comment on above: Performed By: #### C MARIA ISABEL BMP, 3039-04, LIVR #### [facility] ([id number]) [address] [address] [place] [address] Erythrocyte distribution width (RBC) [Ratio] 13.2 % Normal 11.5-15.0 [facility] Comment on above: Performed By: #### C MARIA ISABEL BMP, 3, LIVR #### [facility] ([id number]) [address] [address] [place] [address] Hematocrit (Bld) [Volume fraction] 43.1 % Normal 39-49 [facility] Comment on above: Performed By: #### C MARIA ISABEL, BMP, 3039-04, LIVR #### [facility] ([id number]) [address] [facility] [address] [place] [address] Hemoglobin (Bld) [Mass/Vol] 14.7 g/dL Normal 13.0-17.0 [facility] Comment on above: Performed By: #### C MARIA ISABEL, BMP, 3039-04, LIVR #### [facility] ([id number]) [address] [address] Lymphocytes (Bld) [#/Vol] 1.7 10*3/uL Normal 1.0-3.5 [facility] Comment on above: Performed By: #### C MARIA ISABEL, BMP, 3039-3, LIVR #### [facility] ([id number]) [address] [facility] [address] [place] [address] Lymphocytes/100 WBC (Bld) 13.1 % Normal [facility] Comment on above: Performed By: #### C MARIA ISABEL, BMP, 3, LIVR #### [facility] ([id number]) [address] [facility] [address] [place] [address] MCH (RBC) [Entitic mass] 30.2 pg Normal 27-34 [facility] Comment on above: Performed By: #### C DARREN NICOLAS, 3039-04, LIVR #### [facility] ([id number]) [address] [place] [address] MCHC (RBC) [Mass/Vol] 34.1 g/dL Normal 32-36 [facility] Comment on above: Performed By: #### C MARIA ISABEL BMP, 3039-04, LIVR #### [facility] ([id number]) [address] [facility] [address] [place] [address] MCV (RBC) [Entitic vol] 89 fL Normal 80-100 [facility] Comment on above: Performed By: #### C DARREN NICOLAS, 3039-04, LIVR #### [facility] ([id number]) [address] [facility] [address] [place] [address] Monocytes (Bld) [#/Vol] 1.0 10*3/uL High 0-0.9 [facility] Comment on above: Performed By: #### C DARREN NICOLAS, 3039-04, LIVR #### [facility] ([id number]) [address] [place] [address] Monocytes/100 WBC (Bld) 7.5 % Normal [facility] Comment on above: Performed By: #### C DARREN NICOLAS, 3039-04, LIVR #### [facility] ([id number]) [address] [facility] [address] [place] [address] Neutrophils/100 WBC (Bld) 77.2 % Normal [facility] Comment on above: Performed By: #### C MARIA ISABEL BMP, 3, LIVR #### [facility] ([id number]) [address] [place] [address] Platelet mean volume (Bld) [Entitic vol] 7.4 fL Normal 7-12 [facility] Comment on above: Performed By: #### C MARIA ISABEL, [facility], 3040-3, LIVR #### [facility] ([id number]) [address] [place] [address] Platelets (Bld) [#/Vol] 446 10*3/uL Normal 150-450 [facility] Comment on above: Performed By: #### C MARIA ISABEL, [facility], 3040-3, LIVR #### [facility] ([id number]) [address] [facility] [address] [place] [address] RBC COUNT 4.87 X10E12/L Normal 4.10-5.70 [facility] Comment on above: Performed By: #### C MARIA ISABEL, [facility], 3040-3, LIVR #### [facility] ([id number]) [address] [facility] [address] [place] [address] WBC (Bld) [#/Vol] 12.9 10*3/uL High 4.0-11.0 [facility] Comment on above: Performed By: #### C MARIA ISABEL, [facility], 3040-3, LIVR #### [facility] ([id number]) [address] [facility] [address] [place] [address] GI PANELon 04-18-2023 Gastrointestinal pathogens DNA and [...] SAPOVIRUS Not detected (qualifier value) Normal NDET [facility] Comment on above: Performed By: #### C BCA, BMP, 3040-3, LIVR #### [facility] ([id number]) [address] [place] [address] [address] [place] [address] Glucose Glucometer (BldC) [M ass/Vol]on 04-18-2023 Glucose [Mass/Vol] 164 mg/dL High 65-99 [facility] Glucose [Mass/Vol] 146 mg/dL High 65-99 [facility] Glucose [Mass/Vol] 145 mg/dL High 65-99 [facility] Glucose [Mass/Vol] 161 mg/dL High 65-99 [facility] Surgical Pathologyon 024 Surgical Pathology Normal [facility] Comment on above: Result Comment: [facility] [address] [place] [address] Surgical Pathology Consultation Patient Name:SUSIE BOYCE:1950 (Age: 72)Gender:MTaken:4Reported:04/20/2023hysician(s):Andrzej Fine MD ( )Copy To: Rec. #:[id number]: #[id number] Final Pathologic Diagnosis 1. Duodenum biopsy: Duodenal mucosa with no specific abnormalities. Negative for villous blunting, atypia, or malignancy. Negative for evidence of celiac disease. 2. Gastric biopsy: Mild chronic gastritis. Negative for helicobacter organisms on routine H&E examination. Negative for dysplasia or malignancy. Report Electronically Signed Out 04/20/2023Lorin Campos MD Interpretation performed at [facility], [address] [place] [address], License number: [id number]. Clinical History Melena. 1. R/O celiac 2. H pylori screening. Gross Description 1. [facility] Duodenum biopsy R/O celiac are 6 lockett bits of soft tissue, ranging from 0.2-0.4 cm in greatest dimension. Filtered and submitted in a single cassette. (1, ns, [id number], m7) MG 2. Received in formalin labeled [facility], #2: Gastric biopsy are 4 lockett bits of soft tissue, ranging from 0.1-0.4 cm in greatest dimension. Filtered and submitted in a single cassette. (1, ns, [id number], m7) MG mjg//GR Specimen(s) Received 1: Duodenum biopsy 2: Gastric biopsy Fee Codes(s): 1; 58910 2; 52350 BASIC METABOLIC PANLon 04-17 Anion gap [Moles/Vol] 9 mmol/L Normal 5-15 [facility] Comment on above: Performed By: #### C BCA, BMP, 3040-3, LIVR #### [facility] ([id number]) [address] [place] [address] Calcium [Mass/Vol] 8.7 mg/dL Normal 8.5-10.5 [facility] Comment on above: Performed By: #### C BCA, BMP, 3040-3, LIVR #### [facility] ([id number]) [address] [place] [address] Chloride [Moles/Vol] 104 mmol/L Normal 98-109 [facility] Comment on above: Performed By: #### C BCA, BMP, 3040-3, LIVR #### [facility] ([id number]) [address] [place] [address] CO2 [Moles/Vol] 25 mmol/L Normal 22-32 [facility] Comment on above: Performed By: #### C BCA, BMP, 3040-3, LIVR #### [facility] ([id number]) [address] [place] [address] Creatinine [Mass/Vol] 0.77 mg/dL Normal 0.60-1.30 [facility] Comment on above: Result Comment: METH OD TRACEABLE TO IDMS STANDARD Performed By: #### C BCA BMP, 3040-3, LIVR #### [facility] ([id number]) [address] [place] [address] eGFR (CKD-EPI) NON-RACE DEPENDENT >90 Normal >59 [facility] Comment on above: Result Comment: Reported eGFR is based on the CKD-EPI 2020 equation that does not use a race coefficient. Performed By: #### C BCA BMP, 3040-3, LIVR #### [facility] ([id number]) [address] [place] [address] Glucose [Mass/Vol] 195 mg/dL High 65-99 [facility] Comment on above: Performed By: #### C BCA, BMP, 3040-3, LIVR #### [facility] ([id number]) [address] [address] [place] [address] Potassium [Moles/Vol] 3.8 mmol/L Normal 3.5-5.0 [facility] Comment on above: Performed By: #### C BCA, BMP, 3040-3, LIVR #### [facility] ([id number]) [address] [place] [address] Sodium [Moles/Vol] 138 mmol/L Normal 134-146 [facility] Comment on above: Performed By: #### C BCA, BMP, 3040-3, LIVR #### [facility] ([id number]) [address] [address] [place] [address] Urea nitrogen [Mass/Vol] 14 mg/dL Normal 5-27 [facility] Comment on above: Performed By: #### C BCA, BMP, 3040-3, LIVR #### [facility] ([id number]) [address] [place] [address] CBC AND AUTO DIFFon 04-17-19 24 ABSOLUTE BASOPHIL 0.1 X10E9/L Normal 0.0-0.2 [facility] Comment on above: Performed By: #### C MARIA ISABEL BMP, 3039-3, LIVR #### [facility] ([id number]) [address] [place] [address] ABSOLUTE NEUTROPHIL 9.3 X10E9/L High 1.5-6.6 [facility] Comment on above: Performed By: #### C DARREN NICOLAS, 3039-04, LIVR #### [facility] ([id number]) [address] [place] [address] Basophils/100 WBC (Bld) 0.6 % Normal [facility] Comment on above: Performed By: #### Racheal NICOLAS BMP, 3039-04, LIVR #### [facility] ([id number]) [address] [place] [address] Eosinophils (Bld) [#/Vol] 0.1 10*3/uL Normal 0.0-0.4 [facility] Comment on above: Performed By: #### C MARIA ISABEL BMP, 3039-3, LIVR #### [facility] ([id number]) [address] [place] [address] Eosinophils/100 WBC (Bld) 1.1 % Normal [facility] Comment on above: Performed By: #### C MARIA ISABEL BMP, 0-3, LIVR #### [facility] ([id number]) [address] [place] [address] Erythrocyte distribution width (RBC) [Ratio] 13.2 % Normal 11.5-15.0 [facility] Comment on above: Performed By: #### C BCA, BMP, 3039-3, LIVR #### [facility] ([id number]) [address] [address] [place] [address] Hematocrit (Bld) [Volume fraction] 42.9 % Normal 39-49 [facility] Comment on above: Performed By: #### C MARIA ISABEL, BMP, 0-3, LIVR #### [facility] ([id number]) [address] [facility] [address] [place] [address] Hemoglobin (Bld) [Mass/Vol] 14.6 g/dL Normal 13.0-17.0 [facility] Comment on above: Performed By: #### C MARIA ISABEL, BMP, 3039-, LIVR #### [facility] ([id number]) [address] [address] [place] [address] Lymphocytes (Bld) [#/Vol] 1.5 10*3/uL Normal 1.0-3.5 [facility] Comment on above: Performed By: #### C MARIA ISABEL, BMP, 3039-3, LIVR #### [facility] ([id number]) [address] [address] Lymphocytes/100 WBC (Bld) 12.3 % Normal [facility] Comment on above: Performed By: #### C MARIA ISABEL BMP, 3039-3, LIVR #### [facility] ([id number]) [address] [facility] [address] [place] [address] MCH (RBC) [Entitic mass] 29.7 pg Normal 27-34 [facility] Comment on above: Performed By: #### C BCA, BMP, 0-3, LIVR #### [facility] ([id number]) [address] [place] [address] MCHC (RBC) [Mass/Vol] 34.0 g/dL Normal 32-36 [facility] Comment on above: Performed By: #### C BCA, BMP, 3040-3, LIVR #### [facility] ([id number]) [address] [place] [address] MCV (RBC) [Entitic vol] 87 fL Normal 80-100 [facility] Comment on above: Performed By: #### C BCA, BMP, 3040-3, LIVR #### [facility] ([id number]) [address] [place] [address] Monocytes (Bld) [#/Vol] 1.0 10*3/uL High 0-0.9 [facility] Comment on above: Performed By: #### C MARIA ISABEL, BMP, 3040-3, LIVR #### [facility] ([id number]) [address] [place] [address] Monocytes/100 WBC (Bld) 8.6 % Normal [facility] Comment on above: Performed By: #### C BCA, BMP, 3040-3, LIVR #### [facility] ([id number]) [address] [place] [address] Neutrophils/100 WBC (Bld) 77.4 % Normal [facility] Comment on above: Performed By: #### C BCA, BMP, 3040-3, LIVR #### [facility] ([id number]) [address] [place] [address] Platelet mean volume (Bld) [Entitic vol] 7.3 fL Normal 7-12 [facility] Comment on above: Performed By: #### C BCA, BMP, 3040-3, LIVR #### [facility] ([id number]) [address] [place] [address] Platelets (Bld) [#/Vol] 472 10*3/uL High 150-450 [facility] Comment on above: Performed By: #### C BCA, BMP, 3040-3, LIVR #### [facility] ([id number]) [address] [place] [address] RBC COUNT 4.90 X10E12/L Normal 4.10-5.70 [facility] Comment on above: Performed By: #### C MARIA ISABEL, DARREN, 0-3, LIVR #### [facility] ([id number]) [address] [place] [address] WBC (Bld) [#/Vol] 12.0 10*3/uL High 4.0-11.0 [facility] Comment on above: Performed By: #### C MARIA ISABEL, [facility], 3039-3, LIVR #### [facility] ([id number]) [address] [place] [address] Glucose Glucometer (BldC) [M ass/Vol]on 04-17-2023 Glucose [Mass/Vol] 159 mg/dL High 65-99 [facility] Glucose [Mass/Vol] 266 mg/dL High 65-99 [facility] Glucose [Mass/Vol] 406 mg/dL Critically high 65-99 [facility] Glucose [Mass/Vol] 205 mg/dL High 65-99 [facility] HGB A1C (GLYCO-HGB)on 2023 Glucose [Mass/Vol] 177 mg/dL Normal [facility] Comment on above: Performed By: #### C MARIA ISABEL, [facility], 0-3, LIVR #### [facility] ([id number]) [address] [place] [address] HbA1c (Bld) [Mass fraction] 7.8 % High 4.4-5.6 [facility] Comment on above: Result Comment: NOTE ADA Guidelines Result HgbA1c Normal : less than 5.7 % Prediabetes : 5.7 % to 6.4 % Diabetes : > 6.4 % Use with caution in patients with abnormal hemoglobin variants as the half-life of red blood cells and in vivo glycation rates are affected. Performed By: #### C BCA, BMP, 3040-3, LIVR #### [facility] ([id number]) [address] [place] [address] BASIC METABOLIC PANLon 04-16 Anion gap [Moles/Vol] 9 mmol/L Normal 5-15 [facility] Comment on above: Performed By: #### C BCA, BMP, 3040-3, LIVR #### [facility] ([id number]) [address] [place] [address] Calcium [Mass/Vol] 9.8 mg/dL Normal 8.5-10.5 [facility] Comment on above: Performed By: #### C BCA, BMP, 3040-3, LIVR #### [facility] ([id number]) [address] [place] [address] Chloride [Moles/Vol] 101 mmol/L Normal 98-109 [facility] Comment on above: Performed By: #### C BCA, BMP, 3040-3, LIVR #### [facility] ([id number]) [address] [place] [address] CO2 [Moles/Vol] 27 mmol/L Normal 22-32 [facility] Comment on above: Performed By: #### C BCA, BMP, 3040-3, LIVR #### [facility] ([id number]) [address] [place] [address] Creatinine [Mass/Vol] 0.84 mg/dL Normal 0.60-1.30 [facility] Comment on above: Result Comment: METH OD TRACEABLE TO IDMS STANDARD Performed By: #### C BCA, BMP, 3040-3, LIVR #### [facility] ([id number]) [address] [place] [address] eGFR (CKD-EPI) NON-RACE DEPENDENT >90 Normal >59 [facility] Comment on above: Result Comment: Reported eGFR is based on the CKD-EPI 2020 equation that does not use a race coefficient. Performed By: #### C DARREN NICOLAS, 3040-3, LIVR #### [facility] ([id number]) [address] [facility] [address] [place] [address] Glucose [Mass/Vol] 247 mg/dL High 65-99 [facility] Comment on above: Performed By: #### C DARREN NICOLAS, 3040-3, LIVR #### [facility] ([id number]) [address] [address] Potassium [Moles/Vol] 4.5 mmol/L Normal 3.5-5.0 [facility] Comment on above: Result Comment: SPEC IMEN HEMOLYZED, RESULTS INCREASED MODERATELY HEMOLYZED Performed By: #### C MARIA ISABEL BMP, 3040-3, LIVR #### [facility] ([id number]) [address] [address] Sodium [Moles/Vol] 137 mmol/L Normal 134-146 [facility] Comment on above: Performed By: #### C MARIA ISABEL BMP, 3040-3, LIVR #### [facility] ([id number]) [address] [address] Urea nitrogen [Mass/Vol] 20 mg/dL Normal 5-27 [facility] Comment on above: Performed By: #### C MARIA ISABEL BMP, 3040-3, LIVR #### [facility] ([id number]) [address] [address] CBC AND AUTO DIFFon 04-16-19 24 ABSOLUTE BASOPHIL 0.1 X10E9/L Normal 0.0-0.2 [facility] Comment on above: Performed By: #### C MARIA ISABEL BMP, 3039-3, LIVR #### [facility] ([id number]) [address] [place] [address] ABSOLUTE NEUTROPHIL 12.6 X10E9/L High 1.5-6.6 [facility] Comment on above: Performed By: #### C MARIA ISABEL, BMP, 3039-3, LIVR #### [facility] ([id number]) [address] [place] [address] Basophils/100 WBC (Bld) 0.4 % Normal [facility] Comment on above: Performed By: #### C MARIA ISABEL, BMP, 3039-, LIVR #### [facility] ([id number]) [address] [place] [address] Eosinophils (Bld) [#/Vol] 0.1 10*3/uL Normal 0.0-0.4 [facility] Comment on above: Performed By: #### C MARIA ISABEL, BMP, 3039-3, LIVR #### [facility] ([id number]) [address] [place] [address] Eosinophils/100 WBC (Bld) 0.5 % Normal [facility] Comment on above: Performed By: #### C MARIA ISABEL, BMP, 3039-3, LIVR #### [facility] ([id number]) [address] [place] [address] Erythrocyte distribution width (RBC) [Ratio] 13.4 % Normal 11.5-15.0 [facility] Comment on above: Performed By: #### C MARIA ISABEL, BMP, 3039-3, LIVR #### [facility] ([id number]) [address] [place] [address] Hematocrit (Bld) [Volume fraction] 45.3 % Normal 39-49 [facility] Comment on above: Performed By: #### C BCA, BMP, 3040-3, LIVR #### [facility] ([id number]) [address] [place] [address] Hemoglobin (Bld) [Mass/Vol] 15.2 g/dL Normal 13.0-17.0 [facility] Comment on above: Performed By: #### C MARIA ISABEL, BMP, 3039-3, LIVR #### [facility] ([id number]) [address] [facility] [address] [place] [address] Lymphocytes (Bld) [#/Vol] 1.1 10*3/uL Normal 1.0-3.5 [facility] Comment on above: Performed By: #### C MARIA ISABEL BMP, 3039-04, LIVR #### [facility] ([id number]) [address] [facility] [address] [place] [address] Lymphocytes/100 WBC (Bld) 7.5 % Normal [facility] Comment on above: Performed By: #### C MARIA ISABEL, BMP, 3, LIVR #### [facility] ([id number]) [address] [facility] [address] [place] [address] MCH (RBC) [Entitic mass] 29.4 pg Normal 27-34 [facility] Comment on above: Performed By: #### C MARIA ISABEL BMP, 3039-3, LIVR #### [facility] ([id number]) [address] [place] [address] MCHC (RBC) [Mass/Vol] 33.5 g/dL Normal 32-36 [facility] Comment on above: Performed By: #### C MARIA ISABEL, BMP, 0-3, LIVR #### [facility] ([id number]) [address] [place] [address] MCV (RBC) [Entitic vol] 88 fL Normal 80-100 [facility] Comment on above: Performed By: #### C BCA, BMP, 0-3, LIVR #### [facility] ([id number]) [address] [place] [address] Monocytes (Bld) [#/Vol] 1.0 10*3/uL High 0-0.9 [facility] Comment on above: Performed By: #### C BCA, BMP, 3040-3, LIVR #### [facility] ([id number]) [address] [place] [address] Monocytes/100 WBC (Bld) 6.9 % Normal [facility] Comment on above: Performed By: #### C BCA, BMP, 3040-3, LIVR #### [facility] ([id number]) [address] [place] [address] Neutrophils/100 WBC (Bld) 84.7 % Normal [facility] Comment on above: Performed By: #### C BCA, BMP, 3040-3, LIVR #### [facility] ([id number]) [address] [place] [address] Platelet mean volume (Bld) [Entitic vol] 7.2 fL Normal 7-12 [facility] Comment on above: Performed By: #### C BCA, BMP, 3040-3, LIVR #### [facility] ([id number]) [address] [place] [address] Platelets (Bld) [#/Vol] 501 10*3/uL High 150-450 [facility] Comment on above: Performed By: #### C BCA, BMP, 3040-3, LIVR #### [facility] ([id number]) [address] [place] [address] RBC COUNT 5.18 X10E12/L Normal 4.10-5.70 [facility] Comment on above: Performed By: #### C BCA, BMP, 3040-3, LIVR #### [facility] ([id number]) [address] [place] [address] WBC (Bld) [#/Vol] 14.8 10*3/uL High 4.0-11.0 [facility] Comment on above: Performed By: #### C BCA, BMP, 3040-3, LIVR #### [facility] ([id number]) [address], [address] [place] [address] CT ABDOMEN AND PELVIS W CONT on [...] Callaway MD on 04/16/2023 4:47 PM Normal [facility] CT BRAIN WO CONTon CT BRAIN [...] Susie Sam on 04/16/2023 4:15 PM Normal [facility] Glucose Glucometer (BldC) [M ass/Vol]on 04-16-2023 Glucose [Mass/Vol] 121 mg/dL High 65-99 [facility] LIPASEon 04-16-2023 Lipase [Catalytic activity/Vol] 60 U/L Normal 11-82 [facility] Comment on above: Performed By: #### C BCA, BMP, 3040-3, LIVR #### [facility] ([id number]) [address], [address] [place] [address] LIVER PANELon 04-16-2023 Albumin [Mass/Vol] 4.2 g/dL Normal 3.2-5.3 [facility] Comment on above: Performed By: #### C MARIA ISABEL BMP, 3040-3, LIVR #### [facility] ([id number]) [address], [address] [place] [address] ALP [Catalytic activity/Vol] 93 U/L Normal 39-130 [facility] Comment on above: Performed By: #### C BCA, BMP, 3040-3, LIVR #### [facility] ([id number]) [address], [address] [place] [address] ALT [Catalytic activity/Vol] 19 U/L Normal 0-40 [facility] Comment on above: Performed By: #### C BCA, BMP, 3040-3, LIVR #### [facility] ([id number]) [address], [address] [place] [address] AST [Catalytic activity/Vol] 17 U/L Normal 0-41 [facility] Comment on above: Performed By: #### C MARIA ISABEL, BMP, 3040-3, LIVR #### [facility] ([id number]) [address], [address] [place] [address] Bilirubin [Mass/Vol] 0.8 mg/dL Normal 0.3-1.2 [facility] Comment on above: Performed By: #### C BCA, BMP, 3040-3, LIVR #### [facility] ([id number]) [address], [address] [place] [address] Bilirubin.direct [Mass/Vol] 0.1 mg/dL Normal 0.0-0.4 [facility] Comment on above: Result Comment: SPEC IMEN HEMOLYZED, RESULTS DECREASED MODERATELY HEMOLYZED Performed By: #### C BCA, BMP, 3040-3, LIVR #### [facility] ([id number]) [address], [address] [place] [address] Protein [Mass/Vol] 7.4 g/dL Normal 6.0-8.0 [facility] Comment on above: Performed By: #### C BCA, BMP, 3040-3, LIVR #### [facility] [facility] ([id number]) [address], [address] [place] [address] URN MACROSCOPIC NURon 2023 BILIRUBIN CEDRIC Negative Normal NEG [facility] Comment on above: Performed By: #### N UM #### [facility] ([id number]) [address] [place] [address] BLOOD/HGB CEDRIC Small Abnormal NEG [facility] Comment on above: Performed By: #### N UM #### [facility] ([id number]) [address] [place] [address] GLUCOSE CEDRIC 500 mg/dL Abnormal NEG [facility] Comment on above: Performed By: #### N UM #### [facility] ([id number]) [address] [place] [address] KETONES CEDRIC Negative Normal NEG [facility] Comment on above: Performed By: #### N UM #### [facility] ([id number]) [address] [place] [address] LEUKOCYTE ESTERASE CEDRIC Trace Abnormal NEG [facility] Comment on above: Performed By: #### N UM #### [facility] ([id number]) [address] [place] [address] NITRITE CEDRIC Negative Normal NEG [facility] Comment on above: Performed By: #### N UM #### [facility] ([id number]) [address] [place] [address] PH CEDRIC 5.5 Normal 5.0-8.5 [facility] Comment on above: Performed By: #### N UM #### [facility] ([id number]) [address] [place] [address] PROTEIN CEDRIC Negative Normal NEG [facility] Comment on above: Performed By: #### N UM #### [facility] ([id number]) [address] [place] [address] SPECIFIC GRAVITY CEDRIC 1.015 Normal 1.003-1.035 [facility] Comment on above: Performed By: #### N UM #### [facility] ([id number]) [address] [place] [address] UROBILINOGEN CEDRIC 0.2 eu/dL Normal <1.1 [facility] Comment on above: Performed By: #### N UM #### [facility] ([id number]) [address] [place] [address] Urine collection deviceon ER EXTRA URINES ER EXTRA URINE ORDER IN PROCESS Normal [facility] XR CHEST 2 VWSon 04-16-2023 XR [...] Sawyer MD on 04/16/2023 7:09 PM Normal [facility] Basic Metabolic Profon 01-18 Anion gap [Moles/Vol] 17 mmol/L Normal - [facility] Comment on above: Performed By: #### B #### [facility] [address] [place], [place] [id number] [employer]phalt Smoother: Norberto Condon MD Calcium [Mass/Vol] 9.7 mg/dL Normal 8.6-10.4 [facility] Comment on above: Performed By: #### B MP #### [facility] [address] [place] [address] [employer]: Norberto Condon MD Chloride [Moles/Vol] 100 mmol/L Normal 98-107 [facility] Comment on above: Performed By: #### B MP #### [facility] [address] [place] [address] [employer]: Norberto Condon MD CO2 [Moles/Vol] 19 mmol/L Low 20-31 [facility] Comment on above: Performed By: #### B MP #### [address] [address] [employer]: Norberto Condon MD Creatinine [Mass/Vol] 1.0 mg/dL Normal 0.7-1.2 [facility] Comment on above: Performed By: #### B MP #### [address] [address] [employer]: Norberto Condon MD GFR/1.73 sq M.predicted among non-blacks MDRD (S/P/Bld) [Vol rate/Area] mL/min/{1.73_m2} Normal >60 [facility] Comment on above: Result Comment: These [...] secretion. Performed By: #### B MP #### [address] [address] [employer] Sm[employer]: Norberto Condon MD Glucose [Mass/Vol] 188 mg/dL High 70-99 [facility] Comment on above: Performed By: #### B MP #### [address] [address] [employer]phalt Smo[employer]: Norberto Condon MD Potassium [Moles/Vol] 4.6 mmol/L Normal 3.7-5.3 [facility] Comment on above: Performed By: #### B MP #### [address] [address] [employer]: Norberto Condon MD Sodium [Moles/Vol] 136 mmol/L Normal 135-144 [facility] Comment on above: Performed By: #### B MP #### [facility] [address] [place] [address] [employer] Sm[employer]: Norberto Condon MD Urea nitrogen [Mass/Vol] 20 mg/dL Normal 8-23 [facility] Comment on above: Performed By: #### B MP #### [address] [address] [employer] Smoother: Norberto Condon MD Clinical Supporton 3 Clinical Support [id number] Susie Boyce 1950 M Date Provider Department Center 10/26/2022 PAT VASQUES OT Medical Pavi No family history on file Normal [facility] Comp Metabol,Fastingon 10-04 Albumin [Mass/Vol] 4.5 g/dL Normal 3.5-5.2 [facility] Comment on above: Performed By: #### L IPR, CMPF #### [address] [address] [employer] Sm[employer]: Norberto Condon MD Albumin/Glob Ratio 1.7 Normal 1.0-2.5 [facility] Comment on above: Performed By: #### L IPR, CMPF #### [facility] [address] [place] [address] [employer]: Norberto Condon MD Alkaline Phos 69 U/L Normal 40-129 [facility] Comment on above: Performed By: #### L IPR, CMPF #### [address] [address] Asphalt Smoother: Norberto Condon MD ALT [Catalytic activity/Vol] 15 U/L Normal 5-41 [facility] Comment on above: Performed By: #### L IPR, CMPF #### [facility] [address] [place] [address] [employer]: Norberto Condon MD AST [Catalytic activity/Vol] 13 U/L Normal <40 [facility] Comment on above: Performed By: #### L IPR, CMPF #### [facility] [address] [place] [address] [employer]: Norberto Condon MD Bilirubin [Mass/Vol] 0.4 mg/dL Normal 0.3-1.2 [facility] Comment on above: Performed By: #### L IPR CMPF #### [address] [address] [employer]: Norberto Condon MD Protein [Mass/Vol] 7.2 g/dL Normal 6.4-8.3 [facility] Comment on above: Performed By: #### L IPR CMPF #### [facility] [address] [place] [address] [employer]: Norberto Condon MD Anion gap [Moles/Vol] 19 mmol/L High 9-17 [facility] Comment on above: Performed By: #### L IPR, CMPF #### [facility] [address] [place] [address] [employer]: Norberto Condon MD Calcium [Mass/Vol] 9.8 mg/dL Normal 8.6-10.4 [facility] Comment on above: Performed By: #### L IPR, CMPF #### [address] [address] [employer]phalt Smoother: Norberto Condon MD Chloride [Moles/Vol] 101 mmol/L Normal 98-107 [facility] Comment on above: Performed By: #### L IPR, CMPF #### [facility] [address] [place] [address] Asphalt Smoother: Norberto Condon MD CO2 [Moles/Vol] 19 mmol/L Low 20-31 [facility] Comment on above: Performed By: #### L IPR, CMPF #### [facility] [address] [place] [address] Asphalt Smoother: Norberto Condon MD Creatinine [Mass/Vol] 1.0 mg/dL Normal 0.7-1.2 [facility] Comment on above: Performed By: #### L IPR, CMPF #### [address] [address] [employer]phalt Smoother: Norberto Condon MD GFR/1.73 sq M.predicted among non-blacks MDRD (S/P/Bld) [Vol rate/Area] mL/min/{1.73_m2} Normal >60 [facility] Comment on above: Result Comment: These [...] Performed By: #### L IPR, CMPF #### [address] [address] Asphalt Smoother: Norberto Condon MD Glucose [Mass/Vol] 138 mg/dL High 70-99 [facility] Comment on above: Performed By: #### L IPR, CMPF #### [facility] [address] [place] [address] Asphalt Smoother: Norberto Condon MD Potassium [Moles/Vol] 4.9 mmol/L Normal 3.7-5.3 [facility] Comment on above: Performed By: #### L IPR, CMPF #### [employer] [address] [place] [address] Asphalt Smoother: Norberto Condon MD Sodium [Moles/Vol] 139 mmol/L Normal 135-144 [facility] Comment on above: Performed By: #### L IPR, CMPF #### [employer] [address] [place] [address] Asphalt Smoother: Norberto Condon MD Urea nitrogen [Mass/Vol] 26 mg/dL High 8-23 [facility] Comment on above: Performed By: #### L IPR, CMPF #### [employer] [address] [place] [address] Asphalt Smoother: Norberto Condon MD Lipid Profileon 10-04-2022 Cholesterol [Mass/Vol] 125 mg/dL Normal <200 [facility] Comment on above: Result Comment: Cholesterol Guidelines: <200 Desirable 200-240 Borderline >240 Undesirable Performed By: #### L IPR, CMPF #### [facility] [address] [place] [address] Asphalt Smoother: Norberto Condon MD Cholesterol in HDL [Mass/Vol] 43 mg/dL Normal >40 [facility] Comment on above: Result Comment: HDL Guidelines: <40 Undesirable 40-59 Borderline >59 Desirable Performed By: #### L IPR, CMPF #### [employer] [address] [place] [address] Asphalt Smoother: Norberto Condon MD Cholesterol in LDL [Mass/Vol] 66 mg/dL Normal 0-130 [facility] Comment on above: Result Comment: LDL Guidelines: <100 Desirable 100-129 Near to/above Desirable 130-159 Borderline >159 Undesirable Direct (measured) LDL and calculated LDL are not interchangeable tests. Performed By: #### L [facility] #### [employer] [facility] [place], [place] [id number] Asphalt Smoother: Norberto Condon MD Cholesterol.total/Ch olesterol in HDL [Mass ratio] 2.9 {ratio} Normal <5 [facility] Comment on above: Performed By: #### L STAR, CMPF #### [employer] [address] [place], [place] [id number] Asphalt Smoother: Norberto Condon MD Triglyceride [Mass/Vol] 80 mg/dL Normal <150 [facility] Comment on above: Result Comment: Triglyceride Guidelines: <150 Desirable 150-199 Borderline 200-499 High >499 Very high Based on AHA Guidelines for fasting triglyceride, November 2011. Performed By: #### L [facility] #### [employer] [address] [place] [address] Asphalt Smoother: Norberto Condon MD MRI BRAIN W WO [...] chronic microvascular ischemic changes. Interpreted by: Bertin Dvaid MD Signed by: Bertin David MD 09/13/22 Final result Normal [facility] Creatinine w/GFRon 3 Creatinine [Mass/Vol] 0.8 mg/dL Normal 0.7-1.2 [facility] Comment on above: Performed By: #### C REG #### [facility] [address] [place], [place] [id number] Asphalt Smoother: Derrek Godinez MD GFR/1.73 sq M.predicted among non-blacks MDRD (S/P/Bld) [Vol rate/Area] mL/min/{1.73_m2} Normal >60 [facility] Comment on above: Result Comment: These [...] secretion. Performed By: #### C REG #### [facility] [address] [place], [place] [phone] Asphalt Smoother: Derrek Godinez MD B12/Folate Panelon 3 Cobalamin (Vitamin B12) [Mass/Vol] 392 pg/mL Normal 232-1245 [facility] Comment on above: Performed By: #### B 12FOL #### [facility] [address] [place] [address] Asphalt Smoother: Norberto Condon MD Folic Acid 13.6 ng/mL Normal >4.8 [facility] Comment on above: Performed By: #### B 12FOL #### [employer] [address] [place] [address] Asphalt Smoother: Norberto Condon MD Vitamin B12 & Folateon 08-11 Cobalamin (Vitamin B12) [Mass/Vol] 392 pg/mL 232 - 1245 pg/mL [facility] Folate [Mass/Vol] 13.6 ng/mL 4.8 - PINF ng/mL [facility] MRI CERVICAL SPINE WO CONTRA STon [...] Fazal Rodas DO 01/03/22 Final result Normal [facility] Multilevel cervical spondylosis resulting in upwards [...] stenosis, severe on the left at C6-7. [employer] Phone: MRI CERVICAL SPINE WO CONTRA STOrdered By: Fazal Rodas on 01-03-2022 [employer] Phone: MRI CERVICAL SPINE WO CONTRA STon 01-01-2022 Radiology Study observation (narrative) [employer] Phone: XR CERVICAL SPINE (2-3 VIEWS )on 10-30-2021 No acute osseous abnormality. Multilevel degenerative change. [facility] CONSOLIDATED EXAMINATION: XRAY VIEWS OF THE CERVICAL SPINE 10/30/2021 8:51 am COMPARISON: None. 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 No acute osseous abnormality. Moderate degenerative change throughout most significant C4-5 C5-6 with loss of disc height endplate spondylosis. Prevertebral soft tissues unremarkable. [facility] Doroteo Mcmillan DO - 10/30/2021 EXAMINATION: XRAY VIEWS OF THE CERVICAL SPINE 10/30/2021 8:51 am COMPARISON: None. 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 No acute osseous abnormality. Moderate degenerative change throughout most significant C4-5 C5-6 with loss of disc height endplate spondylosis. Prevertebral soft tissues unremarkable. IMPRESSION: No acute osseous abnormality. Multilevel degenerative change. [employer] [facility] Work Phone: Radiology Study observation (narrative) [employer] [facility] Work Phone: XR CERVICAL SPINE (2-3 VIEWS )Ordered By: Doroteo Mcmillan on 10-30-2021 [employer] [facility] Work Phone: Comprehensive Metabolic Pane l, Fastingon 10-29-2021 Albumin [Mass/Vol] 4.4 g/dL 3.5 - 5.2 g/dL [facility] Albumin/Globulin [Mass ratio] 1.6 {ratio} 1 - 2.5 [facility] ALP (Bld) [Catalytic activity/Vol] 67 U/L 40 - 129 U/L [facility] ALT [Catalytic activity/Vol] 20 U/L 5 - 41 U/L [facility] Anion gap [Moles/Vol] 15 mmol/L 9 - 17 mmol/L [facility] AST [Catalytic activity/Vol] 14 U/L NINF - 40 U/L [facility] Bilirubin [Mass/Vol] 0.6 mg/dL 0.3 - 1 .2 mg/dL [facility] Calcium [Mass/Vol] 9.4 mg/dL 8.6 - 10. 4 mg/dL [employer] [facility] Chloride [Moles/Vol] 103 mmol/L 98 - 10 7 mmol/L [employer] [facility] CO2 [Moles/Vol] 23 mmol/L 20 - 31 mmol/L [employer] [facility] Creatinine [Mass/Vol] 0.79 mg/dL 0.7 - 1.2 mg/dL [facility] Free PSA/Total PSA [Mass fraction] 7.2 g/dL 6.4 - 8.3 g/dL [facility] GFR >60 60 - PI NF mL/min [facility] [facility] GFR Non- >60 60 - PINF mL/min [facility] GFR/1.73 sq M.predicted MDRD (S/P/Bld) [Vol rate/Area] [facility] Comment on above: Average GFR for 70 o r more years old: 75 mL/min/1.73sq m Chronic Kidney Disease: <60 mL/min/1.73sq m Kidney failure: <15 mL/min/1.73sq m eGFR calculated using average adult body mass. Additional eGFR calculator available at: http://www.[employer]/multiple_crcl_2012.htm Glucose [Mass/Vol] 139 mg/dL High 70 - 99 mg/dL [facility] Interpretation and review of laboratory results Abnormal [facility] [employer] Potassium [Moles/Vol] 4.6 mmol/L 3.7 - 5.3 mmol/L [facility] Sodium [Moles/Vol] 141 mmol/L 135 - 144 mmol/L [facility] Urea nitrogen (BldV) [Mass/Vol] 20 mg/dL 8 - 23 mg/dL [facility] Lipid Panelon 10-29-2021 Cholesterol [Mass/Vol] 160 mg/dL NINF - 200 mg/dL [facility] Comment on above: Cholesterol Guidelines: <200 Desirable 200-240 Borderline >240 Undesirable Cholesterol in HDL [Mass/Vol] 41 mg/dL 40 - PINF mg/dL [facility] Comment on above: HDL Guidelines: <40 Undesirable 40-59 Borderline >59 Desirable Cholesterol in LDL [Mass/Vol] 95 mg/dL 0 - 130 mg/dL [facility] Comment on above: LDL Guidelines: <100 Desirable 100-129 Near to/above Desirable 130-159 Borderline >159 Undesirable Direct (measured) LDL and calculated LDL are not interchangeable tests. Cholesterol.total/Ch olesterol in HDL [Mass ratio] 3.9 {ratio} NINF - 5 [facility] Triglyceride [Mass/Vol] 118 mg/dL NINF - 150 mg/dL [facility] Comment on above: Triglyceride Guidelines: <150 Desirable 150-199 Borderline 200-499 High >499 Very high Based on AHA Guidelines for fasting triglyceride, November 2011. No Panel Informationon 10-29 [facility] TSH With Reflex Ft4on 2021 TSH Qn 1.88 m[IU]/L [facility] Vitamin B12on 10-29-2021 Cobalamin (Vitamin B12) [Mass/Vol] 192 pg/mL Low 232 - 1245 pg/mL [facility] Interpretation and review of laboratory results Abnormal [facility] Vital Signs Date Time Vital Sign Value Performing Clinician Facility 02-10-2024 17:43-0500 Body mass index (BMI) [Ratio] 26.91 kg/m2 Javad Furlong DO Work Phone: [facility] 02-10-2024 17:43-0500 Body weight 77.93 kg Javad Furlong DO Work Phone: [facility] 01-27-2024 14:35-0500 Body mass index (BMI) [Ratio] 27.6 kg/m2 Javad Furlong DO Work Phone: [facility] 01-27-2024 14:35-0500 Body temperature 96.91 [degF] Javad Furlong DO Work Phone: [facility] 01-27-2024 14:35-0500 Body weight 79.92 kg Javad Furlong DO Work Phone: [facility] 01-27-2024 14:35-0500 Diastolic blood pressure 68 mm[Hg] Javad Furlong DO Work Phone: [facility] 01-27-2024 14:35-0500 Heart rate 66 /min Javad Furlong DO Work Phone: [facility] 01-27-2024 14:35-0500 Respiratory rate 18 /min Javad Furlong DO Work Phone: [facility] 01-27-2024 14:35-0500 SaO2% (BldA) [Mass fraction] 95 % Javad Furlong DO Work Phone: [facility] 01-27-2024 14:35-0500 Systolic blood pressure 126 mm[Hg] [facility] DO [facility] 12-23-2023 15:54-0400 Body mass index (BMI) [Ratio] 27.06 kg/m2 Javad Furlong DO [facility] 12-23-2023 15:54-0400 Body temperature 97.9 [degF] Javad Furlong DO [facility] 12-23-2023 15:54-0400 Body weight 78.38 kg Javad Furlong DO [facility] 12-23-2023 15:54-0400 Diastolic blood pressure 76 mm[Hg] Javad Furlong DO [facility] 12-23-2023 15:54-0400 Heart rate 76 /min Javad Furlong DO [facility] 12-23-2023 15:54-0400 Respiratory rate 17 /min Javad Furlong DO Work Phone: [facility] 12-23-2023 15:54-0400 SaO2% (BldA) [Mass fraction] 97 % Javad Furlong DO [facility] 12-23-2023 15:54-0400 Systolic blood pressure 134 mm[Hg] Javad Furlong DO [facility] 06-17-2023 10:00-0400 Body temperature 96.8 [degF] Dena Silva MD Work Phone: [employer] 06-17-2023 10:00-0400 Diastolic blood pressure 69 mm[Hg] Dena Silva MD Work Phone: [employer] 06-17-2023 10:00-0400 Heart rate 75 /min Dena Silva MD Work Phone: [employer] [facility] 06-17-2023 10:00-0400 Respiratory rate 17 /min Dena Silva MD Work Phone: [employer] [facility] 06-17-2023 10:00-0400 SaO2% (BldA) [Mass fraction] 98 % Dena Silva MD Work Phone: [employer] [facility] 06-17-2023 10:00-0400 Systolic blood pressure 124 mm[Hg] Dena Silva MD Work Phone: [employer] [facility] 06-16-2023 12:03-0400 Body height 172.7 cm Dena Silva MD Work Phone: [facility] [facility] 06-16-2023 12:03-0400 Body mass index (BMI) [Ratio] 27.83 kg/m2 Dena Silva MD Work Phone: [facility] [facility] 06-16-2023 12:03-0400 Body weight 83.01 kg Dena Silva MD Work Phone: [employer] [facility] Encounters Encounter Date Encounter Type Care Provider Facility Start: 02-10-2024 End: 02-10-2024 ambulatory Javad [facility] Work Phone: [facility] Comment on above: Parkinson's disease without dyskinesia or fluctuating manifestations ([facility]-HCC) (Primary Dx); Anxiety; Depression, unspecified depression type Start: 01-27-2024 End: 01-27-2024 ambulatory Javad [employer] Work Phone: [facility] Comment on above: Late onset Alzheimer 's dementia with anxiety, unspecified dementia severity (CMS-HCC) (Primary Dx); Parkinson's disease without dyskinesia or fluctuating manifestations (CMS-HCC); Gastroesophageal reflux disease, unspecified whether esophagitis present; Hypotension, unspecified hypotension type; Primary hypertension Start: 12-23-2023 End: 12-23-2023 ambulatory [facility] Comment on above: Late onset Alzheimer 's dementia with anxiety, unspecified dementia severity (CMS-HCC) (Primary Dx); Parkinson's disease without dyskinesia or fluctuating manifestations (CMS-HCC); Anxiety; Impaired gait; Contusion of scalp, subsequent encounter Start: 07-18-2023 End: 08-04-2023 Evaluation and management of inpatient DANDRESHASHI SWANSON [facility] Start: 06-17-2023 End: 06-19-2023 Evaluation and management of inpatient [facility] Stress Lab 2 [facility] Non-Invasive Cardiology Comment on above: Arrived Start: 06-16-2023 End: 06-17-2023 Evaluation and management of inpatient Dena Silva MD Work Phone: [facility] Med Surg Comment on above: Near syncope (Primar y Dx); Pre-syncope; Parkinson's disease without dyskinesia or fluctuating manifestations (HCC) Start: 04-27-2023 Telephone encounter Naila baldwin DO Work Phone: [facility] Sign In Start: 04-21-2023 End: 04-21-2023 ambulatory MARLENA PADGETT [facility] Start: 04-21-2023 End: 04-21-2023 ambulatory MAGALI SUAZO [facility] Start: 04-19-2023 End: 04-21-2023 ambulatory ANDRZEJ FINE [facility] Start: 04-18-2023 End: 04-21-2023 ambulatory NAILA SMITH [facility] Start: 04-16-2023 End: 04-21-2023 ambulatory HECTOR SU [facility] Start: 04-16-2023 End: 04-21-2023 Emergency department patient visit JASON WALDEN [facility] Start: 04-16-2023 End: 04-20-2023 ambulatory [facility]: [facility] Start[facility] 01-18-2023 End: 01-19-2023 ambulatory [facility] Start: 10-26-2022 ambulatory [facility] Start: 10-07-2022 End: 10-10-2022 ambulatory [facility] Start: 10-04-2022 End: 10-05-2022 ambulatory [facility] Start: 09-07-2022 End: 09-10-2022 ambulatory [facility] Start: 09-07-2022 End: 09-09-2022 Subsequent hospital visit by physician Vale Evangelista MD Work Phone: [facility] Comment on above: Cognitive impairment Start: 08-26-2022 End: 08-29-2022 ambulatory [facility] Start: 08-11-2022 End: 08-12-2022 [facility] Start: 08-11-2022 End: 08-11-2022 Subsequent hospital visit [...] Subsequent hospital visit by physician Nandini Rizzo [employer] [facility] Start: 01-01-2022 End: 01-04-2022 ambulatory [facility] Start: 01-01-2022 End: 01-03-2022 Subsequent hospital visit by physician Katherine Ochoa [facility] Comment on above: Tremors of nervous s ystem; Cervical arthritis; Gait abnormality Start: 10-30-2021 End: 11-01-2021 Subsequent hospital visit by physician c Home Xr Rm 1 [facility] Radiology Comment on above: Tremors of nervous s ystem Start: 10-29-2021 End: 10-29-2021 Subsequent hospital visit by physician Dandre Swanson MD Work Phone: [facility] lab Comment on above: Tremors of nervous [...] B12 & FOLATE Maira VAZQUEZ RN - [employer] Work Phone: Start: 01-01-2022 Mri spinal canal [...] Screening for malign ant neoplasm of colon [facility] Start: 01-28-2028 Screening for malign ant neoplasm of colon [facility] Start: 01-26-2025 Adult BMI Screening Adult BMI Screen [facility] Start: 12-22-2024 Adult BMI Screening Adult BMI Screen [facility] Start: 12-22-2024 Tobacco Screening Tobacco Screening [facility] Start: 10-25-2024 Adult BMI Screening Adult BMI Screen ing [facility] Start: 08-04-2024 Tobacco Screening Tobacco Screening [facility] Start: 06-16-2024 GFR test (Diabetes, CKD 3-4, OR last GFR 15-59) GFR test (Diabetes, CKD 3-4, OR last GFR 15-59) [facility] Start: 05-18-2024 Hemoglobin A1c measurement A1C test (Diabetic or Prediabetic) [facility] Start: 04-20-2024 Adult BMI Screening Adult BMI Screen ing [facility] Start: 04-19-2024 Tobacco Screening Tobacco Screening [facility] Start: 03-31-2024 Depression Monitoring Depression Mon itoring [facility] Start: 01-13-2024 Influenza vaccination Flu vacc ine (Season Ended) [facility] Comment on above: Postponed from 09/28 (Patient Refused) Start: 10-30-2023 COVID-19 Vaccine ( season) COVID-19 Vaccine ( season) [facility] Start: 10-30-2023 COVID-19 Vaccine ( season) COVID-19 Vaccine ( season) [facility] Start: 10-30-2023 Influenza vaccination Influenza Vacc ine [facility] Start: 10-05-2023 Lipid panel Lipids [facility] Start: 09-09-2023 Annual Wellness Visi t (AWV) Annual Wellness Visit (AWV) [facility] Start: 09-09-2023 Depression Monitoring Depression Mon itoring [facility] Start: 09-09-2023 Hemoglobin A1c measurement A1C test (Diabetic or Prediabetic) [facility] Start: 09-08-2023 GFR test (Diabetes, CKD 3-4, OR last GFR 15-59) GFR test (Diabetes, CKD 3-4, OR last GFR 15-59) [facility] Start: 08-24-2023 End: 08-24-2023 Patient encounter procedure 08/24/2023 1:20 PM EDT Office Visit [facility] [address] [facility] [address] [place], [place] [id number] [place] [address] [facility] [place], [place] [id number] 3 month DM f/u [facility] Comment on above: 3 month DM f/u Start: 08-11-2023 End: 08-11-2023 Patient encounter procedure 08/11/2023 11:40 AM EDT Office Visit [facility] Neurology Specialist [address] [facility] [address] [place] [id number] Vale Evangelista MD [address] [facility] [address] [place] [address] 4M PT Parkinsons [facility] Comment on above: 4M PT Parkinsons Start: 02-28-2023 Annual Wellness Visi t (Medicare Advantage) Annual Wellness Visit (Medicare Advantage) [facility] Start: 01-19-2023 Depression Monitoring Depression Mon itoring [facility] Start: 01-19-2023 Hemoglobin A1c measurement A1C test (Diabetic or Prediabetic) [facility] Start: 01-19-[address] [facility] [employer] [facility] Comment on above: Postponed from 09/28 (Patient Refused) Postponed from 09/28 (Patient Refused) Start: 01-19-2023 Urine screening for protein [facility] [employer] Start: 01-12-2023 End: 01-12-2023 Patient encounter procedure 01/12/2023 Office Visit [place] [address] [facility] [place] [address] [place] [address] [facility] Start: 12-13-2022 End: 12-13-2022 Patient encounter procedure 12/13/2022 Office Visit Neurology Vale Evangelista MD [address] [address] [facility] Special[facility] Start: 10-29-2022 COVID-19 Vaccine ( season) COVID-19 Vaccine ( season) [facility] Start: 10-29-2022 GFR test (Diabetes, CKD 3-4, OR last GFR 15-59) GFR test (Diabetes, CKD 3-4, OR last GFR 15-59) [facility] Start: 10-29-2022 Influenza vaccination Influenza Vacc ine [facility] Start: 10-29-2022 Lipid panel Lipids [facility] [employer] Start: 10-13-2022 Depression Monitoring Depression Mon itoring [facility] Start: 10-13-2022 Hemoglobin A1c measurement A1C test (Diabetic or Prediabetic) [facility] Start: 09-28-2022 Influenza vaccination Flu vaccine (# 1) [facility] Start: 09-08-2022 End: 09-08-2022 Patient encounter procedure 09/08/2022 Office Visit [place] [address] [facility] [place] [address] [place] [address] [facility] Start: 08-12-2022 End: 08-12-2022 Patient encounter procedure 08/12/2022 Office Visit Neurology Vale Evangelista MD [address] [facility] [address] [id number] [facility] Neurology Specialist Start: 05-11-2022 End: 05-11-2022 Patient encounter procedure 05/11/2022 Office Visit Neurology Maira Morales, SAURABH - LOLITA [address] [facility] [address] [place] [address] [facility] Start: 02-24-2022 End: 02-24-2022 Patient encounter procedure 02/24/2022 Appointment Physical Therapy Kingston Quiles, PT [facility] Start: 02-17-2022 End: 02-17-2022 Patient encounter procedure 02/17/2022 Appointment Physical Therapy Kingston Quiles, PT [facility] Start: 02-15-2022 End: 02-15-2022 Patient encounter procedure 02/15/2022 Appointment Physical Therapy Prasanth Felipe PARTITION NOTCHER [facility] Start: 02-10-2022 End: 02-10-2022 Patient encounter procedure 02/10/2022 Appointment Physical Therapy Prasanth Felipe PARTITION NOTCHER [facility] Start: 02-08-2022 End: 02-08-2022 Patient encounter procedure 02/08/2022 Appointment Physical Therapy Kingston Quiles, PT [facility] Start: 01-19-2022 End: 01-19-2022 Patient encounter procedure 01/19/2022 Office Visit [place] [address] [facility] [place] [address] [place] [address] [facility] Start: 01-14-2022 End: 01-14-2022 Patient encounter procedure 01/14/2022 Office Visit Neurology Maira Morales, FRUIT FARMER - PARACHUTE RIGGER [address] [place] [address] [facility] Special[facility] Start: 01-11-2022 End: 01-11-2022 Patient encounter procedure 01/11/2022 Office Visit Neurology Maira Morales [employer] - [employer]ACH[employer] RIGGER [address] [facility] [address] [place] [address] [facility] Start: 11-20-2021 Lipid panel Lipids [facility] Start: 11-04-2021 Diabetic foot examination Diabetic foot exam [facility] Start: 11-04-2021 Urine screening for protein [facility] Start: 10-29-2021 Influenza vaccination Flu vaccine (# 1) [facility] Start: 09-28-2021 Influenza vaccination Flu vaccine (# 1) [facility] Start: 06-30-2021 Annual Wellness Visi t (AWV) Annual Wellness Visit (AWV) [facility] Start: 04-26-2021 COVID-19 Vaccine (4 - Booster for Moderna series) COVID-19 Vaccine (4 - Booster for Moderna series) [facility] Start: 02-18-2021 COVID-19 Vaccine (4 - Booster for Moderna series) COVID-19 Vaccine (4 - Booster for Moderna series) [facility] Start: 02-18-2021 COVID-19 Vaccine (4 - Booster) COVID-19 Vaccine (4 - Booster) [facility] Start: 12-29-2019 Diabetic retinal exam Diabetic retin al exam [facility] Start: 12-29-2019 Glaucoma screening Diabetic retinal exam [facility] Start: 12-20-2019 Annual Wellness Visi t (AWV) Annual Wellness Visit (AWV) [facility] Start: 2014 Fall Risk Screening Fall Risk Screen ing [facility] Start: 2009 Respiratory Syncytia l Virus (RSV) or age 60 yrs+ (1 - 1-dose 60+ series) Respiratory Syncytial Virus (RSV) or age 60 yrs+ (1 - 1-dose 60+ series) [facility] Start: 1994 Screening for malign ant neoplasm of colon [facility] Start: 1968 DTaP,Tdap and Td Vaccines (1 - Tdap) DTaP,Tdap and Td Vaccines (1 - Tdap) [facility] Start: 1968 DTaP/Tdap/Td vaccine (1 - Tdap) DTaP/Tdap/Td vaccine (1 - Tdap) [facility] Start: 07-15-1967 Adult BMI Follow Up Plan Adult BMI Follow Up Plan [facility] Start: 07-15-1967 Diabetic foot examination Diabetic Foot Exam [facility] Start: 07-15-1967 Hepatitis C screening Hepatitis C sc reen [facility] Start: 1961 Depression Screening Depression Scre ening [facility] Start: 07-15-1955 Pneumococcal 65+ yea rs Vaccine (1 - PCV) Pneumococcal 65+ years Vaccine (1 - PCV) [facility] Start: 07-15-1955 Pneumococcal 65+ yea rs Vaccine (1 of 2 - PCV) Pneumococcal 65+ years Vaccine (1 of 2 - PCV) [facility] Start: 1949 Glaucoma screening Diabetic Op hthalmology Exam [facility] Start: 1950 Medicare Annual Wellness Visit Medicare Annual Wellness Visit [facility] End: 06-23-2023 Basic Metabolic Panel w/ Reflex to MG Basic Metabolic Panel w/ Reflex to MG Lab Routine Daily for 7 Days starting 06/17/2023 until 06/23/2023, 1 completed [employer] Comment on above: Daily for 7 Days sta rting 06/17/2023 until 06/23/2023, 1 completed End: 06-21-2023 CBC W Auto Differential panel - Blood CBC with Auto Differential Lab Routine Daily for 5 Days starting 06/17/2023 until 06/21/2023, 1 completed [employer] [facility] Comment on above: Daily for 5 Days sta rting 06/17/2023 until 06/21/2023, 1 completed Cortisol Total Cortisol Total L ab Routine 06/17/2023 10:15 AM EDT [facility] [facility] Work Phone: EKG 12 Lead EKG 12 Lead ECG Routine 06/16/2023 11:19 AM EDT [facility] Glucose [Mass/volume ] in Serum or Plasma [employer] [facility] Comment on above: 4X Daily (AC & HS) u ntil discontinued starting 06/16/2023 As Needed until disc ontinued starting 06/16/2023 End: 09-07-2022 MRI BRAIN W WO CONTRAST [employer] Comment on above: 1 Occurrences starti ng 09/07/2022 until 09/07/2022 End: 06-17-2023 Nasal Cannula Oxygen Nasal Cannula Oxygen Respiratory Care Routine As Needed until discontinued starting 06/17/2023 [facility] Comment on above: As Needed until disc ontinued starting 06/17/2023 Nuclear stress test with myocardial perfusion Nuclear stress test with myocardial perfusion CV Stress/NM Stress Routine Near syncope Pre-syncope 06/17/2023 2:02 PM EDT [facility] Oxygen therapy [[facility] Data Set] Initiate Oxygen Therapy Protocol Respiratory Care Routine As Needed until discontinued starting 06/16/2023 [facility] [facility] Work Phone: Comment on above: As Needed until disc ontinued starting 06/16/2023 Immunizations Immunization Date Immunization Notes Care Provider Gaby [facility] 07-23-2021 zoster vaccine recombinant Nandini Rizzo PTA [facility] [facility] Work Phone: 05-12-2021 zoster vaccine recombinant Dandre Swanson MD Work Phone: [employer] [facility] 12-24-2020 COVID-19, MODERNA BL UE border, Primary or Immunocompromised, (age 12y+), IM, 100 mcg/0.5mL Dandre Swanson MD Work Phone: [facility] Work Phone: 05-22-2020 COVID-19, mRNA, LNP- S, PF, 100mcg/0.5mL Dose Naila Smith DO Work Phone: [facility] 05-22-2020 COVID-19, US Vaccine , Vaccine Unspecified Vale Evangelista MD Work Phone: [facility] 04-24-2020 COVID-19, mRNA, LNP- S, PF, 100mcg/0.5mL Dose Naila Smith DO Work Phone: [facility] 04-24-2020 COVID-19, US Vaccine , Vaccine Unspecified Vale Evangelista MD Work Phone: [facility] Payers Date Payer Category Payer Medicare [id number] 2022 Medicare [id number] 1.2.8 [id number] 2021 Medicare [id number] 1. [id number] 1950 Unknown [id number] 2.16.8 40.1.333503.3.579.2.177 1950 Unknown [id number] 2.16.8 40.1.245345.3.579.2.177 1949 Unknown [id number] 2.16.8 40.1.319749.3.579.2.177 1949 Unknown [id number] 2.16.8 40.1.099570.3.579.2.177 1949 Unknown [id number] 2.16.8 40.1.495638.3.579.2.1286 1949 Unknown [id number] 2.16.8 40.1.256692.3.579.2.1286 1949 Unknown [id number] 2.16.8 40.1.052637.3.579.2.1286 1949 Unknown [id number] 2.16.8 40.1.103875.3.579.2.1286 1949 Unknown [id number] 2.16.8 40.1.350600.3.579.2.1286 1949 Unknown [id number] 2.16.8 40.1.983528.3.579.2.1286 1949 Unknown [id number] 2.16.8 40.1.669317.3.579.2.1286 1949 Unknown [id number] 2.16.8 40.1.992016.3.579.2.1286 1949 Unknown [id number] 2.16.8 40.1.320470.3.579.2.1286 1949 Unknown [id number] 2.16.8 40.1.778053.3.579.2.1286 1949 Unknown [id number] 2.16.8 40.1.966894.3.579.2.1286 1949 Unknown [id number] 2.16.8 40.1.702440.3.579.2.1286 1949 Unknown [id number] 2.16. 840.1.991550.3.579.2.175 1949 Unknown [id number] 2.16. 840.1.813456.3.579.2.175 1949 Unknown [id number] 2.16. 840.1.889510.3.579.2.175 1949 Unknown [id number] 2.16.8 40.1.075903.3.579.2.176 1949 Unknown [id number] 2.16.8 40.1.353619.3.579.2.176 1949 Unknown [id number] 2.16.8 40.1.884510.3.579.2.176 Social History Date Type Detail Facility Start: 10-20-2017 End: 04-19-2023 Tobacco smoking status IAIS Ex-smoker [facility] Phone: Start: 05-03-1968 End: 05-04-2015 History of tobacco use Current smoker [facility] Phone: Start: 05-03-1968 End: 05-04-2015 History of tobacco use Cigarette Smoker [facility] Phone: Start: 10-20-2017 End: 04-10-2020 Cigarettes smoked current (pack per day) - Reported 1 [employer] Work Phone: Start: 10-20-2017 End: 04-19-2023 Tobacco use and exposure Smokeless tobacco non-user [facility] Phone: Start: 10-13-2021 End: 12-23-2023 Alcohol intake Current non-drinker of alcohol (finding) [facility] Phone: Start: 07-07-2021 History SDOH Financial 4 [facility] Phone: Start: 07-07-2021 End: 09-08-2022 History SDOH Food Worry 1 [employer] Phone: Start: 07-01-2020 End: 09-08-2022 History SDOH Transport Med 2 [facility] Phone: Start: 1950 Sex Assigned At Not on file [facility] Phone: Start: 01-19-2022 End: 06-17-2023 Alcohol intake Current drinker of alcohol (finding) [facility] Phone: Start: 01-14-2022 Alcohol Comment socially [employer] Work Phone: Start: 01-04-2022 End: 01-14-2022 Exposure to SARS-CoV-2 (event) Not sure [facility] Start: 09-08-2022 History SDOH Physica l Activity DPW 3 [facility] Start: 09-08-2022 History SDOH Physica l Activity MPS 0 [facility] Start: 09-08-2022 History SDOH Financial 5 [facility] Start: 04-10-2020 End: 04-16-2023 [facility] Work Phone: Has the Serious Parody, or [employer] threatened to shut off services in your home in past 12Mo No AC [employer] Work Phone: In the past 12 month s, has lack of transportation kept you from medical appointments or from getting medications? No [facility] [employer] [facility] Start: 05-03-2016 Alcohol Comment socially yearly [facility] How often to you hav e a drink containing alcohol? Never [facility] (I/We) worried wheth er (my/our) food would run out before (I/we) got money to buy more. Never true [facility] Start: 10-01-2014 Sex [facility] (finding) [facility] NEGATED: Highlighted rowStart: NINF History of tobacco use Passive smoker [facility] [facility] Work Phone: Medical Equipment Procedure Code Equipment Code Equipment Origin al Text Equipment Identifier Dates 1 strip by Other route 4 times daily Test 2 times a day & as needed for symptoms of irregular blood glucose. Dispense sufficient amount for indicated testing frequency plus additional to accommodate PRN testing needs. [id number] Start: 08-16-2019 1 each by In Vit ro route 4 times daily As needed. [id number] Start: 08-16-2019 USE DIRECTED [id number] Start: 09-03-2021 1 strip by Other route 4 times daily Test 2 times a day & as needed for symptoms of irregular blood glucose. Dispense sufficient amount for indicated testing frequency plus additional to accommodate PRN testing needs. [id number] Start: 06-22-2022 100 each by Does not apply route daily [id number] Start: 06-22-2022 Brng Tib 70ohp12 mm 0d Kn Ant - [id number] Start: 05-14-2016 Brng Tib 79/83mm x11mm 3d Std - [id number] Start: 10-22-2016 Cement Bn Palaco s Radpq 40g Rpl [id number] - [id number] Start: 05-14-2016 Cement Bn Palaco s Radpq 40g Rpl [id number] - [id number] Start: 10-22-2016 Cmpt Ptlr Thn 34 mm 3 Pg Kn Ser - [id number] Start: 05-14-2016 Ty Tib 79mm Cocr Kn I Beam - [id number] Start: 10-22-2016 USE DIRECTED [id number] Start: 01-05-2023 CHECK BLOOD SUGA R TWICE DAILY [id number] Start: 05-31-2023 CHECK BLOOD SUGA R TWICE DAILY [id number] Start: 05-31-2023 Cmpt Fem Kn Lt 7 0mm Cr Cmnt - [id number] Start: 05-14-2016 Ty Tib As Mx 79m m Intlk Cocr - [id number] Start: 05-14-2016 Cmpt Ptlr Thn 8. 6mm 37mm 3 Pg - [id number] Start: 10-22-2016 Cmpt Fem Kn Rt 7 0mm Cr Cmnt - [id number] Start: 10-22-2016 Clinical Notes 02-17-2022 to 02-10-2024 Javad Alegre, DO - 02/10/2024 5:43 PM Jj Alegre, DO - 01/27/2024 2:34 PM Jj Alegre, DO - 12/23/2023 3:54 PM Pilar Farmer, RN - 06/17/2023 4:43 PM EDTAttachments Note Date & Type Note Facility 02-10-2024 History of Present illness Narrative Patient Name: Susie Boyce Date of : 1950 Date of Service: 02/10/2024 Facility: [facility] Type of Visit: Acute Visit Subjective Susie Boyce is a 73 y.o. male [facility]. James continues with behavioral problems. He called 911 yesterday and told the police he was being held against his will. He was upset with his because he said that she didn't RSVP for the family [place] and that he was going to make chicken noodle soup. He gets agitated easily. He is on buspirone 5mg BID for about 6 weeks but doesn't seem to be helping. He has continued to fall and is now in a wheelchair. He didn't have any serious injuries. Allergies: Penicillins and Simvastatin Code Status: [facility] Wt 77.9 kg (171 lb 12.8 oz) [...] Comments: He said his daughter sent him nGAP Summary / Assessment / Plan 1. Parkinson's [...] Javad Alegre DO documented in this encounter [facility] 01-27-2024 History of Present illness Narrative Patient Name: Susie Boyce Date of : 1950 Date of Service: 01/27/2024 Facility: [facility] Type of Visit: Subsequent Visit Subjective Susie [...] midodrine. Allergies: Penicillins and Simvastatin Code Status: [facility] BP 126/68 Pulse 66 Temp 36.1 C [...] Alzheimer's dementia with anxiety, unspecified dementia severity ([facility]) 2. Parkinson's disease without dyskinesia or fluctuating manifestations ([facility]) 3. Gastroesophageal reflux disease, unspecified whether esophagitis [...] Javad Alegre DO documented in this encounter [facility] 12-23-2023 History of Present illness Narrative Patient Name: Susie Boyce Date of : 1950 Date of Service: 12/23/2023 Facility: [facility] Type of Visit: Acute Visit Subjective Susie Boyce is a 73 y.o. male [facility] for regular visit. James has [...] fine. Allergies: Penicillins and Simvastatin Code Status: [facility] BP 134/76 Pulse 76 Temp 36.6 C [...] Alzheimer's dementia with anxiety, unspecified dementia severity ([facility]) 2. Parkinson's disease without dyskinesia or fluctuating manifestations ([facility]) 3. Anxiety 4. Impaired gait 5. Contusion of scalp, subsequent encounter He is maxed out on SSRI. He was recently started on namenda by psych. Will try buspirone 5 mg BID. Continue other orders as directed. All medications reviewed and are medically necessary. ELECTRONICALLY SIGNED BY: Javad Alegre DO documented in this encounter [facility] 06-17-2023 History of Present illness Narrative The [...] Documentation: Carbidopa Levodopa 25/250MG Tablets and Pyridostimine Walnut 60MG tablets on hold, PT has plenty at home per . Midodrine 2.5MG tablets filled for 10 day supply with ins override since Sent original prescription to mail order. Midodrine was dropped off to PT's room and signed for by Bettie, of PT 4:36PM. 06/17/23 Ok to dicharge per family wish if cleared by cardiology and neurology Bertram Nguyen MD 06/17/2023 [facility] Occupational Therapy Evaluation Date: 06/17/23 Patient Name: Susie Boyce Room: Account: [id number] : 1950 (72 y.o.) Gender: male Discharge [...] Walker accessible Home Equipment: Cane, Walker, rolling, Intake Specialist (gait belt, glucometer) ADL Assistance: Independent Homemaking Assistance: Needs assistance (Spouse mainly completes cleaning, cooking, laundry. 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 PROGRESS NOTE 06/17/2023 7:01 AM Name: Susie Boyce Acct: [id number] Room: IP Day: 1 Admit Date: 06/16/2023 [...] was admitted to the hospital in [place] 3 months ago for an episode of [...] was discharged and was brought back to [place]. Since then he has seen neurology who increased donepezil to 15 mg. Was also to admitted to [facility] for fatigue, dark stools and positive [...] Denies any loss of consciousness since [place]. Denies any palpitations. 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 Medication education and monitoring per protocol. Patient's personal belongings (please select all that are sent with patient): Glasses RN SIGNATURE: Timur Aldana RNBMW SALES CONSULTANT/SOCIAL WORK SECTION Inpatient Status Date: 06/16/2023 Readmission Risk Assessment Score: Readmission Risk Risk of Unplanned Readmission: 12 Discharging to Facility/ Agency [facility] [address] [facility] [address] Fax Dialysis Facility (if applicable) Name: Address: Dialysis Schedule: Phone: Fax: Administrative Nursing Supervisor/Hospice Superintendent signature: PHYSICIAN SECTION Prognosis: Fair Condition at [...] attachments cannot be sent through Care Everywhere.midodrine (Citizen [place])Lightheadedness or Faintness ([place]izen [place])Orthostatic Hypotension ([place]izen [place])Seizure ([place]izen [place])Caregiving: Making a Home Safe: General Info (Citizen [place])Diabetes Diet Meal Planning: General Info (Citizen Of [place])documented in this encounter [facility] 04-27-2023 Miscellaneous Notes Called patient to inform of benign biopsies from colonoscopy and EGD at [facility]. Patient can repeat colonoscopy in 3-5 years for CRC screening, depending upon health status. documented in this encounter [facility] [employer] 04-27-2023 Telephone encounter Note Called patient to inform of benign biopsies from colonoscopy and EGD at [facility]. Patient can repeat colonoscopy in 3-5 years for CRC screening, depending upon health status. [employer] [employer] Work Phone: 01-25-2023 Note [id number] Susie Boyce 1950 M Date Provider Department [place] 01/25/2023 57[facility] Ed No family history on file Reason for Visit and Comments: Cognitive Difficulties [Other] [facility] 01-25-2023 Note [facility] [address] [facility] [address] FAX: [phone] NEUROPSYCHOLOGICAL EVALUATION DATES OF SERVICE: 01/25/2023 DIAGNOSIS: R41.3 Other amnesia DATE OF ONSET: Unknown DATE OF : 1950 AGE: 72 years REASON FOR REFERRAL: This is the initial neuropsychological evaluation of Mr. Susie Boyce, a 72-year-old, right-handed gentleman who was referred for this evaluation by Vale Evangelista MD ([facility] Neurology) to determine present neurocognitive functioning in [...] to be. Review of medical records from [facility] include a neurology office visit with Dr. [...] appliance therapy was cost prohibitive. Records from [facility] include an Occupational Therapy [facility] Evaluation conducted on 10/26/2022 by Pat [...] lisinopril, vitamin B12, and recently started donepezil. [facility] records add ibuprofen. PAST MEDICAL HISTORY: Mr. Boyce reports history of Parkinson's disease and diabetes. [facility] records indicate additional history of cervical spondylosis, [...] sugar. He repo (more content not included)... 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 License Number: [id number]. State: [place]. Expiration Date: 2026. License Restrictions: B. Lens. Previous [employer] Eval: No Vehicle Make and Model: 2019 [employer]. Prior difficulties with driving/Citations/Navigation: No accidents, citations, or navigational errors reported. Last time driven: 10/26/2022. Current means of community mobility: Self. Type of traffic driven: All. Reports daily driving, mostly surface streets. Golfs 3 times a week. 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 Necessity for eval: Medical condition recent [...] wears glasses. He follows up with an intensive care medicine specialist yearly. He reports no visual changes, denies diplopia or blurriness. Range of Motion: Right eye: Full. Left eye: Full. Both eyes: Full. Convergence: Normal. Saccades: Horizontal and vertical. Mild reduction in speed. Right Field: Direct fixation. Left Field: Direct fixation. Pursuits: Sustains fixation. [employer] [facility] Vision Test Peripheral Douglass Left Eye: [...] memory skills immediate and delayed, slight reduction. Almo Making Part B: Evaluates divided attention and [...] WNL Elbow AR (more content not included)... [facility] 02-17-2022 Hospital course Narrative Images from the original note were not included. [] [facility] Outpatient Rehabilitation & Therapy [address] P: F: [x] [facility] [address] P: F: [] [facility] Outpatient Rehabilitation & Therapy [address] P: F: [] [facility] Outpatient Rehabilitation & Therapy [address] [facility] P: F: [] [facility] [place] Out[facility] Rehabilitation & Therapy [address] [place] [address] P: F: Physical Therapy Discharge Note Date: 02/17/2022 Patient: Susie Boyce : 1950 Physician: Maira Mroales APRN-LOLITA Insurance: G20 (ICD-10-CM) - Parkinson's disease [...] the dentist, doing well. Leaves for [place] next week. Objective: Test Measurements: see goal [...] to seek out further therapy in [place] while on vacation and plans to continue [...] treatment sessions. [x] Other: Leaving for [place] for several months. If you have any questions or concerns, please don't hesitate to call. Thank you for your referral. documented in this encounter [facility] Phone: Evaluation note Diagnosis Tremors of nervous system Abnormal involuntary movements Type 2 diabetes mellitus without complication, with long-term current use of insulin (HCC) Other hyperlipidemia documented in this encounter [facility] Phone: evaluation note* Diagnosis Tremors of nervous system Abnormal involuntary movements documented in this encounter [facility] Phone: evaluation note* Diagnosis Tremors of nervous system Abnormal involuntary movements Cervical arthritis Cervical spondylosis without myelopathy Gait abnormality Abnormality of gait documented in this encounter [facility] Phone: evaluation note* Diagnosis B12 deficiency Other B-complex deficiencies documented in this encounter [facility] Phone: evaluation note* Diagnosis Cognitive impairment Unspecified persistent mental disorders due to conditions classified elsewhere [facility] Diagnosis Near syncope- Primary Syncope and collapse Near syncope Syncope and collapse Pre-syncope Syncope and collapse Parkinson's disease without dyskinesia or fluctuating manifestations (HCC) documented in this encounter [facility]* Diagnosis Late onset Alzheimer's dementia with [...] Documents on File Type Date Recorded Patient Director 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 [address] Referral ID Status Reason Start Date Expiration Date Visits Re quested Visits Authorized [id number] Closed 12/21/2021 12/05/2022 1 0 Specialty Diagnoses / Procedures Referred By Contac t Referred To Contact Radiology Diagnoses Cognitive impairment Procedures MRI BRAIN W WO CONTRAST Vale Evangelista MD [address] [facility] [address] [place] [address] Referral ID Status Reason Start Date Expiration Date Visits Re quested Visits Authorized [id number] Closed 09/03/2022 08/19/2023 1 1 Summary Purpose Family History No Family History Records FoundNo Family History Records FoundNo Family History Records FoundNo Family History Records FoundNo Family History Records Found Additional Source Comments Care Teams (unrecognized sec tion and content) 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 [address] [place] [address] PCP - [facility] Medicine 02/13/15 Welder Apprentice [employer] Relationship Specialty [place] [address] [place] [address] PCP - [facility] 02/13/15 Welder Apprentice [employer] Relationship Specialty Start [place] [address] [place] [address] PCP - [facility] 02/13/15 Welder Apprentice [employer] Relationship Specialty [place] [address] [place] [address] PCP - [facility] 02/13/15 Welder Apprentice [employer] Relationship Specialty Start [place] [address] [place] [address] PCP - [facility] 02/13/15 Welder App[employer]ice [employer] Relationship Specialty [place] [address] [place] [address] PCP - [facility] 02/13/15 Welder App[employer]ice [employer] Relationship Specialty [place] [address] [place] [address] PCP - General 01/07/14 Welder Apprentice [employer] Relationship Specialty [place] [address] [place] [address] [place] [address] PCP - [facility] Medicine 02/13/15 Welder Apprentice [employer] Relationship Specialty [place] [address] [place] [address] PCP - [facility] 02/13/15 Welder Apprentice [employer] Relationship Specialty Start [place] [address] [place] [address] PCP - General 01/07/14 Welder Apprentice [employer] Relationship Specialty Start [place] [address] [place] [address] PCP - General 01/07/14 Reason for Visit (unrecogniz ed section and content) Specialty Diagnoses / Procedures Referred By Brian centeno Referred To Contact Radiology Diagnoses Tremors of nervous system Cervical arthritis Gait abnormality R25.1 (ICD-10-CM) - Tremors of nervous system Procedures MRI CERVICAL SPINE WO CONTRAST HI MRI, CERV SPINE 67815 - HI MRI, [place] [address] [place] [address] Referral ID Status Reason Start Date Expiration Date Visits Re quested Visits Authorized [id number] Closed 12/21/2021 12/05/2022 1 0 Specialty Diagnoses / Procedures Referred By Brian centeno Referred To Contact Physical Therapist / Physical Therapy Diagnoses Parkinson's disease (HCC) Maira Morales, FRUIT FARMER - PARACHUTE RIGGER [address] [facility] [address] [place] [address] [facility] [address] [facility] [place] [address] Referral ID Status Reason Start Date Expiration Date Visits Requested Visits Authorized [id number] Authorized Specialty Services Required 2 01/14/2023 1 99 Specialty Diagnoses / Procedures Referred By Brian centeno Referred To Contact Radiology Diagnoses Cognitive impairment Procedures MRI BRAIN W WO CONTRAST Vale Evangelista MD [address] [facility] [address] [place] [address] Referral ID Status Reason Start Date Expiration Date Visits Re quested Visits Authorized [id number] Closed 09/03/2022 08/19/2023 1 1 Reason Comments Loss of Consciousness Specialty Diagnoses / Procedures Referred By Brian centeno Referred To Contact Diagnoses Pre-syncope Near syncope Marta Lozano MD [address] [place] [address] [address] [place] [address] [address] [place] [address] Referral ID Status Reason Start Date Expiration Date Visits Re quested Visits Authorized [id number] 1 1 Specialty Diagnoses / Procedures Referred By Brian centeno Referred To Contact Diagnoses Pre-syncope Near syncope Marta Lozano MD [address] [place] [address] [address] [place] [address] [address] [place] [address] (unrecognized sect ion and content) No Status Records FoundNo Status Records FoundNo Status Records FoundNo Status Records FoundNo Status Records Found INFORMATION SOURCE (unrecogn ized section and content) DATE CREATED AUTHOR 10/10/2022 [facility] DATE CREATED AUTHOR AUTHOR'S ORGANIZ ATION 01/31/2023 [facility] DATE CREATED AUTHOR AUTHOR'S ORGANIZ ATION 04/27/2023 [facility] DATE CREATED AUTHOR AUTHOR'S ORGANIZ ATION 06/25/2023 [facility] DATE CREATED AUTHOR AUTHOR'S ORGANIZ ATION 08/05/2023 [facility] Ordered Prescriptions (unrec ognized section and [...] BE BASED ON THE PRIMARY CLINICAL RECORDS. [employer] [facility]. provides no warranty or guarantee of the accuracy or completeness of information in this document.
[2024-02-22] MEDS: ADACEL DIPH,PERTUSS(ACELL),TET VAC/PF 0.5 ML ADULT SYRINGE IM (07:43)
--- NOTE | 2024-02-22 08:48 | XR_ITS ---
The [address] [address] Patient Name: SUSIE SAMUELS MRN: [id number] date: 1950 Sex: M Assigned Patient Location: ER Current Patient Location: ER Accession/Order Number: [id number] Exam Date: 02/22/2024 09:00 Report Date: 02/22/2024 11:08 At the request of: VIOLETTE LOPEZ Procedure: XR hip RT 2V w/ pelvis AP PELVIS AND TWO VIEW RIGHT HIP: 02/22/2024 9:00 AM EST Clinical Data: fall Comparison: No previous No evidence of acute fracture or dislocation. Hip joints are symmetric. Widths are reasonably well preserved. Mild overgrowths off the superior acetabula are symmetric. Alignment at the symphysis is unremarkable. SI joints are symmetric. Some degenerative changes. Fair amount of degenerative disease lower lumbar. XR/XR hip RT 2V w/ pelvis IMPRESSION: 1. No evidence of acute osseous process. Electronically authenticated by: KAISER GOMES Date: 02/22/2024 11:08
[2024-02-22 09:02] VITALS: BP 140/72; PULSE 62; O2SAT 99
[2024-02-22] MEDS: KETOROLAC TROMETHAMINE 30 MG/ML VIAL 15 MG IM (09:24)
--- NOTE | 2024-02-22 12:25 | PC.NURSE ---
Report called to Karen at [facility].
== END 2024-02-22 12:26 | disposition home or self-care (01) ==
PROVIDERS: Emergency Provider Emergency Medicine; PCP Family Medicine
DX: S01.01XA Laceration without foreign body of scalp, initial encounter (principal); W01.0XXA Fall on same level from slipping, tripping and stumbling without subsequent striking against object, initial encounter; M25.551 Pain in right hip; G20.A1 Parkinson's disease without dyskinesia, without mention of fluctuations; Z91.81 History of falling; Z23 Encounter for immunization
CPT/HCPCS: 12001; 70450; 72125; 73502; 90471; 90715; 93005; 96372; 99285; J1885

== ENCOUNTER 2024-02-24 03:57 | Emergency (ER) | payer MEDICARE, SELFPAY ==
[2024-02-24 03:58] VITALS: BP 118/58; PULSE 56; TEMP 36.4; O2SAT 97; BMI 26.6
--- OUTSIDE RECORDS SUMMARY | 2024-02-24 04:04 | XMS_ITS | CCD ---
Author Organization [facility] Care Team Providers Care Educational Institution Curator Name Role Phone Dandre Swanson MD Primary [...] Care Unavailable JOHAN WISEMAN Referring Unavailable KAREN, DNADRE M Primary Care Unavailable SWANSON, DANDRE M [...] to adverse reactions to drug 5 Anaphylaxis Avitide (16 sources) Simvastatin; Translations: [SIMVASTATIN] Drug Allergy 5 Other (See Comments) [employer] Phone: (1 source) ALLERGIES NOT ON FILE; Translations: [ALLERGIES NOT ON FILE] Propensity to adverse reactions (disorder) [facility] Repository (2 sources) Vibegron Propensity to adverse reactions to drug 4 Rash Avitide Work Phone: (2 sources) Metformin And Related Propensity to adverse reactions to drug 4 Diarrhea Avitide Medications Current Medications Medication Drug Class(es) Dates Sig (Normalized) Sig (Original) Acetaminophen (9 sources) Start: 06-16-2023 acetaminophen (TYLENOL) tablet 650 mg take 2 tablets by [facility] every six hours as needed for [...] Start: 02-12-2016 take 2 tablets by mo [facility] three times weekly atorvastatin (LIPITOR) 20 [...] neuropathy, with long-term current use of insulin ([facility]) Inject 45 Units into the skin daily 60 mL 3 09/08/2022 06/16/2023 Discontinued (DOSE ADJUSTMENT) Start: 07-07-2022 End: 09-08-2022 LEVEMIR FLEXPEN 100 UNIT/ML injection pen Indications: Type 2 diabetes mellitus without complication, with long-term current use of insulin ([facility]) INJECT SUBCUTANEOUSLY 55 UNITS DAILY 60 mL 3 07/07/2022 09/08/2022 Discontinued (REORDER) Start: 10-13-2021 End: 01-11-2022 insulin detemir (LEVEMIR FLE XTOUCH) 100 UNIT/ML injection pen Indications: Type 2 diabetes mellitus without complication, with long-term current use of insulin ([facility]) Inject 40 Units into the skin nightly 36 mL 3 10/13/2021 01/11/2022 Active lisinopril 2.5 mg oral tablet (9 sources) Angiotensin Converting Enzyme Inhibitor Start: 04-27-2022 lisinopril (PRINIVIL;ZESTRIL) 2.5 MG tablet Indications: Type 2 diabetes mellitus without complication, with long-term current use of insulin ([facility]) TAKE 1 TABLET DAILY 90 tablet 3 04/27/2022 Active Start: 04-13-2021 lisinopril (NJ INIVIL;ZESTRIL) 2.5 MG tablet Indications: Type 2 diabetes mellitus without complication, with long-term current use of insulin ([facility]) TAKE 1 TABLET DAILY 90 [...] 09/01/2022 09/08/2022 Discontinued (REORDER) Start: 10-26-2021 FLUoxetine (NJ OZAC) 20 MG capsule Indications: Recurrent major [...] at 0900, Until Discontinued polyethylene glycol 3350 62795 mg powder for oral solution (1 source) [...] 10-30-2021 10-30-2021 Episodic Other aftercare (1 source) rn long term care (current) use of insulin; Translations: [intermediate (current) use of insulin] Onset: 12-17-2014 Episodic [...] Results Test Name Value Interpretation Reference Range Rust Glucose,Whole Bloodon 2023 Glucose [Mass/Vol] 169 mg/dL High 75-110 [facility] Glucose [Mass/Vol] 129 mg/dL High 75-110 [facility] Glucose [Mass/Vol] 149 mg/dL High 75-110 [facility] Glucose,Whole Bloodon 2023 Glucose [Mass/Vol] 210 mg/dL High 75-110 [facility] Glucose [Mass/Vol] 169 mg/dL High 75-110 [facility] Glucose [Mass/Vol] 120 mg/dL High 75-110 [facility] Glucose [Mass/Vol] 139 mg/dL High 75-110 [facility] Glucose,Whole Bloodon 2023 Glucose [Mass/Vol] 222 mg/dL High 75-110 [facility] Glucose [Mass/Vol] 172 mg/dL High 75-110 [facility] Glucose [Mass/Vol] 165 mg/dL High 75-110 [facility] Glucose [Mass/Vol] 178 mg/dL High 75-110 [facility] Glucose,Whole Bloodon 2023 Glucose [Mass/Vol] 249 mg/dL High 75-110 [facility] Glucose [Mass/Vol] 96 mg/dL Normal 75-110 [facility] Glucose [Mass/Vol] 57 mg/dL Low 75-110 [facility] Comment on above: Result Comment: [employer] Noted Glucose,Whole Bloodon 2023 Glucose [Mass/Vol] 121 mg/dL High 75-110 [facility] Glucose [Mass/Vol] 70 mg/dL Low 75-110 [facility] Glucose [Mass/Vol] 73 mg/dL Low 75-110 [facility] Glucose [Mass/Vol] 57 mg/dL Low 75-110 [facility] Glucose [Mass/Vol] 71 mg/dL Low 75-110 [facility] Glucose,Whole Bloodon 2023 Glucose [Mass/Vol] 77 mg/dL Normal 75-110 [facility] Glucose [Mass/Vol] 95 mg/dL Normal 75-110 [facility] Glucose [Mass/Vol] 110 mg/dL Normal 75-110 [facility] Glucose [Mass/Vol] 123 mg/dL High 75-110 [facility] Glucose,Whole Bloodon 2023 Glucose [Mass/Vol] 224 mg/dL High 75-110 [facility] Glucose [Mass/Vol] 148 mg/dL High 75-110 [facility] Glucose [Mass/Vol] 184 mg/dL High 75-110 [facility] Glucose,Whole Bloodon 2023 Glucose [Mass/Vol] 129 mg/dL High 75-110 [facility] Glucose [Mass/Vol] 141 mg/dL High 75-110 [facility] Glucose [Mass/Vol] 87 mg/dL Normal 75-110 [facility] Glucose [Mass/Vol] 103 mg/dL Normal 75-110 [facility] Glucose,Whole Bloodon 2023 Glucose [Mass/Vol] 139 mg/dL High 75-110 [facility] Glucose [Mass/Vol] 184 mg/dL High 75-110 [facility] Glucose [Mass/Vol] 70 mg/dL Low 75-110 [facility] Glucose,Whole Bloodon 2023 Glucose [Mass/Vol] 181 mg/dL High 75-110 [facility] Glucose [Mass/Vol] 126 mg/dL High 75-110 [facility] Glucose [Mass/Vol] 132 mg/dL High 75-110 [facility] Glucose [Mass/Vol] 156 mg/dL High 75-110 [facility] Glucose,Whole Bloodon 2023 Glucose [Mass/Vol] 213 mg/dL High 75-110 [facility] Glucose [Mass/Vol] 143 mg/dL High 75-110 [facility] Glucose [Mass/Vol] 118 mg/dL High 75-110 [facility] Glucose [Mass/Vol] 78 mg/dL Normal 75-110 [facility] Glucose,Whole Bloodon 2023 Glucose [Mass/Vol] 208 mg/dL High 75-110 [facility] Glucose [Mass/Vol] 168 mg/dL High 75-110 [facility] Glucose [Mass/Vol] 92 mg/dL Normal 75-110 [facility] Glucose [Mass/Vol] 135 mg/dL High 75-110 [facility] Glucose,Whole Bloodon 2023 Glucose [Mass/Vol] 171 mg/dL High 75-110 [facility] Glucose [Mass/Vol] 132 mg/dL High 75-110 [facility] Glucose [Mass/Vol] 166 mg/dL High 75-110 [facility] Glucose [Mass/Vol] 191 mg/dL High 75-110 [facility] Glucose,Whole Bloodon 2023 Glucose [Mass/Vol] 156 mg/dL High 75-110 [facility] Glucose [Mass/Vol] 155 mg/dL High 75-110 [facility] Glucose [Mass/Vol] 143 mg/dL High 75-110 [facility] Glucose [Mass/Vol] 145 mg/dL High 75-110 [facility] Glucose,Whole Bloodon 2023 Glucose [Mass/Vol] 183 mg/dL High 75-110 [facility] Glucose [Mass/Vol] 116 mg/dL High 75-110 [facility] Glucose [Mass/Vol] 84 mg/dL Normal 75-110 [facility] Glucose [Mass/Vol] 99 mg/dL Normal 75-110 [facility] Glucose,Whole Bloodon 2023 Glucose [Mass/Vol] 113 mg/dL High 75-110 [facility] Glucose [Mass/Vol] 106 mg/dL Normal 75-110 [facility] Glucose [Mass/Vol] 103 mg/dL Normal 75-110 [facility] Glucose [Mass/Vol] 153 mg/dL High 75-110 [facility] B12/Folate Panelon Cobalamin (Vitamin B12) [Mass/Vol] 461 pg/mL Normal 232-1245 [facility] Comment on above: Performed By: #### B 12FOL ####[facility] [place], [place] [id number] lab Director: Nroberto Condon MD Folic Acid 12.2 ng/mL Normal 4.8-24.2 [facility] Comment on above: Performed By: #### B 12FOL ####[address] [place] [address] lab Director: Norberto Condon MD Glucose,Whole Bloodon 2023 Glucose [Mass/Vol] 207 mg/dL High -110 [facility] Glucose [Mass/Vol] 180 mg/dL High -110 [facility] Glucose [Mass/Vol] 213 mg/dL High 75-110 [facility] Glucose [Mass/Vol] 138 mg/dL High 75-110 [facility] CBC with Diffon 07-18-2023 Abs. Basophil 0.00 k/uL Normal 0.0-0.2 [facility] Comment on above: Performed By: #### C DP, MG, CP, ALCB ####[facility] [address], [place] [id number] lab Director: Reji Son DO Abs.Neutrophil (Seg) 7.60 k/uL Normal 1.3-9.1 [facility] Comment on above: Performed By: #### C DP, MG, CP, ALCB ####[facility] [address] [place] [address] Lab Director: Reji Son DO Basophils/100 WBC (Bld) 1 % Normal 0-2 [facility] Comment on above: Performed By: #### C DP, MG, CP, ALCB ####[facility] [address] [place] [address] Lab Director: Reji Son DO Eosinophils (Bld) [#/Vol] 0.10 10*3/uL Normal 0.0-0.4 [facility] Comment on above: Performed By: #### C DP, MG, CP, ALCB ####[facility] [address] [place] [address] Lab Director: Reji Son DO Eosinophils/100 WBC (Bld) 2 % Normal 0-4 [facility] Comment on above: Performed By: #### C DP, MG, CP, ALCB ####[facility] [address] [facility] [address] Lab Director: Reji Son DO Erythrocyte distribution width (RBC) [Ratio] 13.9 % Normal 11.5-14.9 [facility] Comment on above: Performed By: #### C DP, MG, CP, ALCB ####[facility] [address] [facility] [address] Lab Director: Reji Son DO Hematocrit (Bld) [Volume fraction] 42.8 % Normal 41-53 [facility] Comment on above: Performed By: #### C DP, MG, CP, ALCB ####[facility] [address] [place] [address] Lab Director: Reji Son DO Hemoglobin (Bld) [Mass/Vol] 14.4 g/dL Normal 13.5-17.5 [facility] Comment on above: Performed By: #### C DP, MG, CP, ALCB ####[facility] [address] [facility], [place] [phone] Director: Reji Son DO Lymphocytes (Bld) [#/Vol] 1.20 10*3/uL Normal 1.0-4.8 [facility] Comment on above: Performed By: #### C DP, MG, CP, ALCB ####[facility] Xwg[address] [facility].[place], [place] [phone] Director: Reji Son DO Lymphocytes/100 WBC (Bld) 12 % Low 24-44 [facility] Comment on above: Performed By: #### C DP, MG, CP, ALCB ####[address], [place] [address])[phone] Director: Reji Son DO MCH (RBC) [Entitic mass] 30.3 pg Normal 26-34 [facility] Comment on above: Performed By: #### C DP, MG, CP, ALCB ####[facility] [address] [facility].[place], [place] [address])[phone] Director: Reji Son DO MCHC (RBC) [Mass/Vol] 33.7 g/dL Normal 31-37 [facility] Comment on above: Performed By: #### C DP, MG, CP, ALCB ####[facility] [address]bk[address] [facility].[place], [place] [phone] Director: Reji Son DO MCV (RBC) [Entitic vol] 89.9 fL Normal 80-100 [facility] Comment on above: Performed By: #### C DP, MG, CP, ALCB ####[facility] [address] [place] [address].[place] [address] Lab Director: Reji Son DO Monocytes (Bld) [#/Vol] 0.80 10*3/uL Normal 0.1-1.3 [facility] Comment on above: Performed By: #### C DP, MG, CP, ALCB ####[facility] [address] [place] [address] Lab Director: Reji Son DO Monocytes/100 WBC (Bld) 8 % High 1-7 [facility] Comment on above: Performed By: #### C DP, MG, CP, ALCB ####[facility] [address] [place] [address] Lab Director: Reji Son DO Neutrophil (Seg) 77 % High 36-66 [facility] Comment on above: Performed By: #### C DP, MG, CP, ALCB ####[facility] [address] [facility] [address] Lab Director: Reji Son DO Platelet mean volume (Bld) [Entitic vol] 7.1 fL Normal 6.0-12.0 [facility] Comment on above: Performed By: #### C DP, MG, CP, ALCB ####[facility] [address] [facility] [place] [address] Lab Director: Reji Son DO Platelets (Bld) [#/Vol] 329 10*3/uL Normal 150-450 [facility] Comment on above: Performed By: #### C DP, MG, CP, ALCB ####[facility] [address] [facility] [address] Lab Director: Reji Son DO RBC (Bld) [#/Vol] 4.77 10*6/uL Normal 4.5-5.9 [facility] Comment on above: Performed By: #### C DP, MG, CP, ALCB ####[facility] [address] [place] [address] lab Director: Reji Son DO WBC (Bld) [#/Vol] 9.8 10*3/uL Normal 3.5-11.0 [facility] Comment on above: Performed By: #### C DP, MG, CP, ALCB ####[facility] Jxw[address] [facility].[place], [place] [phone] Director: Reji Son DO Comp Metabolic Profon 2023 ALT [Catalytic activity/Vol] U/L Low 5-41 [facility] Comment on above: Performed By: #### C DP, MG, CP, ALCB ####[facility] [address] [place], [place] [phone] Director: Reji Son DO Albumin [Mass/Vol] 4.0 g/dL Normal 3.5-5.2 [facility] Comment on above: Performed By: #### C DP, MG, CP, ALCB ####[facility] [address] [place], [place] [phone] Director: Reji Son DO Alkaline Phos 93 U/L Normal 40-129 [facility] Comment on above: Performed By: #### C DP, MG, CP, ALCB ####[facility] [address] [place] [address].[place] [address] Lab Director: Reji Son DO Anion gap [Moles/Vol] 12 mmol/L Normal 9-17 [facility] Comment on above: Performed By: #### C DP, MG, CP, ALCB ####[facility] [address] [facility].[place], [place] [phone] Director: Reji Son DO AST [Catalytic activity/Vol] 16 U/L Normal <40 [facility] Comment on above: Performed By: #### C DP, MG, CP, ALCB ####[facility] [address] [place] [address] Lab Director: Reji Son DO Bilirubin [Mass/Vol] 0.8 mg/dL Normal 0.3-1.2 [facility] Comment on above: Performed By: #### C DP, MG, CP, ALCB ####[facility] [address] [place] [address] Lab Director: Reji Son DO Calcium [Mass/Vol] 9.2 mg/dL Normal 8.6-10.4 [facility] Comment on above: Performed By: #### C DP, MG, CP, ALCB ####[facility] [address] [place] [address] lab Director: Reji Son DO Chloride [Moles/Vol] 104 mmol/L Normal 98-107 [facility] Comment on above: Performed By: #### C DP, MG, CP, ALCB ####[facility] [address] [facility] [address] lab Director: Reji Son DO CO2 [Moles/Vol] 21 mmol/L Normal 20-31 [facility] Comment on above: Performed By: #### C DP, MG, CP, ALCB ####[facility] [address] [place] [address] lab Director: Reji Son DO Creatinine [Mass/Vol] 0.7 mg/dL Normal 0.7-1.2 [facility] Comment on above: Performed By: #### C DP, MG, CP, ALCB ####[facility] [address] [place] [address] lab Director: Reji Son DO GFR/1.73 sq M.predicted among non-blacks MDRD (S/P/Bld) [Vol rate/Area] mL/min/{1.73_m2} Normal >60 [facility] Comment on above: Result Comment: These results [...] By: #### C DP, MG, CP, ALCB ####[facility] [address] [facility] [place] [address] Lab Director: Reji Son DO Glucose [Mass/Vol] 161 mg/dL High 70-99 [facility] Comment on above: Performed By: #### C DP, MG, CP, ALCB ####[facility] [address] [facility] [address] Lab Director: Reji Son DO Potassium [Moles/Vol] 4.0 mmol/L Normal 3.7-5.3 [facility] Comment on above: Performed By: #### C DP, MG, CP, ALCB ####[facility] R[address] [facility] [place] [address] Lab Director: Reji Son DO Protein [Mass/Vol] 6.5 g/dL Normal 6.4-8.3 [facility] Comment on above: Performed By: #### C DP, MG, CP, ALCB ####[facility] [address] [facility] [address] Lab Director: Reji Son DO Sodium [Moles/Vol] 137 mmol/L Normal 135-144 [facility] Comment on above: Performed By: #### C DP, MG, CP, ALCB ####[facility] [address] [facility] [address] [facility] Director: Reji Son DO Urea nitrogen [Mass/Vol] 16 mg/dL Normal 8-23 [facility] Comment on above: Performed By: #### C DP, MG, CP, ALCB ####[facility] [address] [place] [address] Lab Director: Reji Son DO Drug Scr, Abuse, Uron 2023 Amphetamine(s),Ur Negative Normal NEG [facility] Comment on above: Result Comment: (Positive cutoff 1000 ng/mL) Performed By: #### U AX, JABIER ####[address] [address] [facility] Director: Reji Son DO Barbiturate(s),Ur Negative Normal NEG [facility] Comment on above: Result Comment: (Positive cutoff 200 ng/mL) Performed By: #### U AX, JABIER ####[facility] [address] [place] [address] Lab Director: Reji Son DO Benzodiazepine(s) Negative Normal NEG [facility] Comment on above: Result Comment: (Positive cutoff 200 ng/mL) Performed By: #### U AX, JABIER ####[address] [address] Lab Director: Reji Son DO Cannabinoid(s),Ur Negative Normal NEG [facility] Comment on above: Result Comment: (Positive cutoff 50 ng/mL) Performed By: #### U AX, JABIER ####[facility] [address] [place] [address] Lab Director: Reji Son DO Cocaine Metabolite Negative Normal NEG [facility] Comment on above: Result Comment: (Positive cutoff 300 ng/mL) Performed By: #### U AX, JABIER ####[facility] [address] [place] [address] Lab Director: Reji Son DO Fentanyl, Urine Negative Normal NEG [facility] Comment on above: Result Comment: (Positive cutoff 5 ng/ml) Performed By: #### U AX, JABIER ####[address] [address] Lab Director: Reji Son DO Interpretive Info Assay provides medical screening only. The absence of expected drug(s) and/or Normal [facility] Comment on above: Result Comment: meta bolite(s) may indicate diluted or adulterated urine, limitations of testing or timing of collection. Testing for legal purposes should be confirmed by another method. To request confirmation of test result, please call the lab within 7 days of sample submission. Performed By: #### U AX, JABIER ####[address] [address] Lab Director: Reji Son DO Methadone Ql (U) Negative Normal NEG [facility] Comment on above: Result Comment: (Positive cutoff 300 ng/mL) Performed By: #### U AX, JABIER ####[address] [address] Lab Director: Reji Son DO Opiate(s), Ur Negative Normal NEG [facility] Comment on above: Result Comment: (Positive cutoff 300 ng/mL) Performed By: #### U AX, JABIER ####[facility] [address] [place] [address] Lab Director: Reji Son DO Oxycodone, Urine Negative Normal NEG [facility] Comment on above: Result Comment: (Positive cutoff 100 ng/mL) Performed By: #### U AX, JABIER ####[facility] [address] [place] [address] Lab Director: Reji Son DO Phencyclidine, Ur Negative Normal NEG [facility] Comment on above: Result Comment: (Positive cutoff 25 ng/mL) Performed By: #### U AX, JABIER ####[facility] [address] [place] [address] Lab Director: Reji Son DO Ethanol Alcoholon 07-18-2023 Ethanol [Mass/Vol] mg/dL Normal <10 [facility] Comment on above: Performed By: #### C DP, MG, CP, ALCB ####[facility] [address] [place] [address] [facility] Director: Reji Son DO Ethanol percent <0.010 Normal [facility] Comment on above: Performed By: #### C DP, MG, CP, ALCB ####[address] [address] [facility] Director: Reji Son DO Glucose,Whole Bloodon 2023 Glucose [Mass/Vol] 126 mg/dL High 75-110 [facility] Magnesiumon 07-18-2023 Magnesium [Mass/Vol] 1.8 mg/dL Normal 1.6-2.6 [facility] Comment on above: Performed By: #### C DP, MG, CP, ALCB ####[address] [address] [facility] Director: Reji Son DO UA w/Reflex Cultureon 2023 Bilirubin, SemiQt,Ur Negative Normal NEG [facility] Comment on above: Performed By: #### U AX, JABIER ####[facility] [address] [place] [address] Lab Director: Reji Son DO Blood, Urine Negative Normal NEG [facility] Comment on above: Performed By: #### U AX, JABIER ####[facility] [address] [facility] [place] [address] Lab Director: Reji Son DO Clarity (U) Clear Normal CLEAR [facility] Comment on above: Performed By: #### U AX, JABIER ####[facility] [address] [place] [address] Lab Director: Reji Son DO Color (U) Yellow Normal YEL [facility] Comment on above: Performed By: #### U AX, JABIER ####[facility] Xis[address] [place] [address] Lab Director: Reji Son DO Comment Microscopic exam not performed based on chemical results unless requested in Normal [facility] Comment on above: Result Comment: orig inal order. Performed By: #### U AX, JABIER ####[facility] [address] [place] [address] Lab Director: Reji Son DO Glucose Ql (U) Negative Normal NEG [facility] Comment on above: Performed By: #### U AX, JABIER ####[address] [place] [address] Lab Director: Reji Son DO Ketones Ql (U) TRACE Abnormal NEG [facility] Comment on above: Performed By: #### U AX, JABIER ####[facility] [id number] [place] [address] [place] [address] Lab Director: Reji Son DO Leukocyte esterase Test strip Ql (U) Negative Normal NEG [facility] Comment on above: Performed By: #### U AX, JABIER ####[facility] [id number] [place] [address] Lab Director: Reji Son DO Nitrite,Ur Negative Normal NEG [facility] Comment on above: Performed By: #### U AX, JABIER ####[facility] Sjs5148 [facility] [place] [address] [facility] Director: Reji Son DO PH,Ur 5.5 Normal 5.0-8.0 [facility] Comment on above: Performed By: #### U AX, JABIER ####[place] [id number] [facility] [place] [address] [facility] Director: Reji Son DO Protein Ql (U) Negative Normal NEG [facility] Comment on above: Performed By: #### U AX, JABIER ####[address], [place] [phone] Director: Reji Son DO Spec. [place],Ur 1.011 Normal 1.000-1.030 [facility] Comment on above: Performed By: #### U AX, JABIER ####[facility] Mpl7152 [facility].[place], [place] [address])[phone] Director: Reji Son DO Urobilinogen,Ur Normal Normal 0.0-1.0 [facility] Comment on above: Performed By: #### U AX, JABIER ####[address], [place] [address])[phone] Director: Reji Son DO Basic Metab w/rfx MGon 06-16 Anion gap [Moles/Vol] 11 mmol/L Normal 9-17 [facility] Comment on above: Performed By: #### B MPX, CDP ####[facility] [address] [place] [address].[place], [place] [address])[phone] Director: Reji Son DO Calcium [Mass/Vol] 8.6 mg/dL Normal 8.6-10.4 [facility] Comment on above: Performed By: #### B MPX, CDP ####[facility] Sml[address] [place] [address] Lab Director: Reji Son DO Chloride [Moles/Vol] 103 mmol/L Normal 98-107 [facility] Comment on above: Performed By: #### B MPX, CDP ####[facility] [id number] [facility] [address] Lab Director: Reji Son DO CO2 [Moles/Vol] 23 mmol/L Normal 20-31 [facility] Comment on above: Performed By: #### B MPX, CDP ####[facility] Bip4823 [facility].[place], [place] [phone] Director: Reji Son DO Creatinine [Mass/Vol] 0.9 mg/dL Normal 0.7-1.2 [facility] Comment on above: Performed By: #### B DAVIDX, TIESHA ####[facility] Iey6948 [facility] [place] [address] Lab Director: Reji Son DO GFR/1.73 sq M.predicted among non-blacks MDRD (S/P/Bld) [Vol rate/Area] mL/min/{1.73_m2} Normal >60 [facility] Comment on above: Result Comment: These results [...] secretion. Performed By: #### B MPX, CDP ####[facility] Wit9781 [facility].[place], [place] [phone] Director: Reji Son DO Glucose [Mass/Vol] 181 mg/dL High 70-99 [facility] Comment on above: Performed By: #### B MPX, CDP ####[facility] Rxe1675 [facility] [place] [address] Lab Director: Reji Son DO Potassium [Moles/Vol] 4.6 mmol/L Normal 3.7-5.3 [facility] Comment on above: Performed By: #### B MPX, CDP ####[facility] Ean0838 [facility] [place] [address] lab Director: Reji Son DO Sodium [Moles/Vol] 137 mmol/L Normal 135-144 [facility] Comment on above: Performed By: #### B MPX, CDP ####[facility] Lpr0147 [facility] [place] [address] lab Director: Reji Son DO Urea nitrogen [Mass/Vol] 13 mg/dL Normal 8-23 [facility] Comment on above: Performed By: #### B MPX, CDP ####[facility] Aqp2240 [facility] [place] [address] Lab Director: Reji Son DO Basic Metabolic Panel w/ Ref melina to MGon 06-17-2023 Anion gap [Moles/Vol] 11 mmol/L 9 - 17 mmol/L [facility] Calcium [Mass/Vol] 8.6 mg/dL 8.6 - 10. 4 mg/dL [facility] Chloride [Moles/Vol] 103 mmol/L 98 - 10 7 mmol/L [facility] CO2 [Moles/Vol] 23 mmol/L 20 - 31 mmol/L [facility] Creatinine [Mass/Vol] 0.9 mg/dL 0.7 - 1.2 mg/dL [facility] GFR/1.73 sq M.predicted MDRD (S/P/Bld) [Vol rate/Area] - PINF [facility] Comment on above: These results are not [...] 181 mg/dL High 70 - 99 mg/dL [facility] Interpretation and review of laboratory results Abnormal [facility] Potassium [Moles/Vol] 4.6 mmol/L 3.7 - 5.3 mmol/L [facility] Sodium [Moles/Vol] 137 mmol/L 135 - 144 mmol/L [facility] Urea nitrogen [Mass/Vol] 13 mg/dL 8 - 23 mg/dL [facility] CBC with Auto Differentialon 06-17-2023 Basophils (Bld) [#/Vol] 0.10 10*3/uL [facility] Basophils/100 WBC (Bld) 1 % 0 - 2 % [facility] Eosinophils (Bld) [#/Vol] 0.20 10*3/uL [facility] Eosinophils/100 WBC (Bld) 2 % 0 - 4 % [facility] Erythrocyte distribution width (RBC) [Ratio] 13.6 % 11.5 - 14.9 % [facility] Hematocrit (Bld) [Volume fraction] 46.3 % 41 - 53 % [facility] Hemoglobin (Bld) [Mass/Vol] 14.9 g/dL 13.5 - 17.5 g/dL [facility] Interpretation and review of laboratory results Abnormal [facility] Lymphocytes/100 WBC (Bld) 17 % Low 24 - 44 % [facility] Lymphocytes/100 WBC (Bld) 1.30 % [facility] MCH (RBC) [Entitic mass] 29.2 pg 26 - 34 pg [facility] MCHC (RBC) [Mass/Vol] 32.1 g/dL 31 - 37 g/dL [facility] MCV (RBC) [Entitic vol] 90.9 fL 80 - 100 fL [facility] Monocytes/100 WBC (Bld) 10 % High 1 - 7 % [facility] Monocytes/100 WBC (Bld) 0.70 % [facility] Neutrophils/100 WBC (Bld) 70 % High 36 - 66 % [facility] Platelet mean volume (Bld) [Entitic vol] 7.3 fL 6.0 - 12.0 fL [facility] Platelets (Bld) [#/Vol] 343 10*3/uL [facility] RBC (Bld) [#/Vol] 5.09 10*6/uL 4.5 - 5.9 m/uL [facility] Segmented neutrophils/100 WBC (Bld) 5.30 % [facility] WBC other (Bld) [#/Vol] 7.6 [facility] CBC with Diffon 06-17-2023 Abs. Basophil 0.10 k/uL Normal 0.0-0.2 [facility] Comment on above: Performed By: #### B MPX, CDP ####[facility] [id number] [place] [address] Lab Director: Reji Son DO Abs.Neutrophil (Seg) 5.30 k/uL Normal 1.3-9.1 [facility] Comment on above: Performed By: #### B MPX, CDP ####[facility] Gww3782 [place] [address] Lab Director: Reji Son DO Basophils/100 WBC (Bld) 1 % Normal 0-2 [facility] Comment on above: Performed By: #### B MPX, CDP ####[facility] Eni5781 [place] [address] Lab Director: Reji Son DO Eosinophils (Bld) [#/Vol] 0.20 10*3/uL Normal 0.0-0.4 [facility] Comment on above: Performed By: #### B MPX, CDP ####[facility] Etu4793 [place] [address] Lab Director: Reji Son DO Eosinophils/100 WBC (Bld) 2 % Normal 0-4 [facility] Comment on above: Performed By: #### B MPX, CDP ####[facility] Whz[address] [place] [address] lab Director: Reji Son DO Erythrocyte distribution width (RBC) [Ratio] 13.6 % Normal 11.5-14.9 [facility] Comment on above: Performed By: #### B MPX, CDP ####[facility] Ola2136 [facility] [address] lab Director: Reji Son DO Hematocrit (Bld) [Volume fraction] 46.3 % Normal 41-53 [facility] Comment on above: Performed By: #### B MPX, CDP ####[facility] Gjz6152 [facility] [address] Lab Director: Reji Son DO Hemoglobin (Bld) [Mass/Vol] 14.9 g/dL Normal 13.5-17.5 [facility] Comment on above: Performed By: #### B MPX, CDP ####[facility] Vrz9971 [facility] [address] Lab Director: Reji Son DO Lymphocytes (Bld) [#/Vol] 1.30 10*3/uL Normal 1.0-4.8 [facility] Comment on above: Performed By: #### B MPX, CDP ####[facility] Pub2566 [facility] [address] Lab Director: Reji Son DO Lymphocytes/100 WBC (Bld) 17 % Low 24-44 [facility] Comment on above: Performed By: #### B MPX, CDP ####[facility] [address], [place] [phone] Director: Reji Son DO MCH (RBC) [Entitic mass] 29.2 pg Normal 26-34 [facility] Comment on above: Performed By: #### B MPX, CDP ####[facility] [address], [place] [phone] Director: Reji Son DO MCHC (RBC) [Mass/Vol] 32.1 g/dL Normal 31-37 [facility] Comment on above: Performed By: #### B MPX, CDP ####[facility] Hjz2468 [facility].[place], [place] [phone] Director: Reji Son DO MCV (RBC) [Entitic vol] 90.9 fL Normal 80-100 [facility] Comment on above: Performed By: #### B MPX, CDP ####[facility] Mea2337 [facility].[place], [place] [phone] Director: Reji Son DO Monocytes (Bld) [#/Vol] 0.70 10*3/uL Normal 0.1-1.3 [facility] Comment on above: Performed By: #### B MPX, CDP ####[facility] Jqe1194 [facility].[place], [place] [phone] Director: Reji Son DO Monocytes/100 WBC (Bld) 10 % High 1-7 [facility] Comment on above: Performed By: #### B MPX, CDP ####[facility] Plv3305 [facility] [place] [address] Lab Director: Reji Son DO Neutrophil (Seg) 70 % High 36-66 [facility] Comment on above: Performed By: #### B MPX, CDP ####[facility] Zaw0133 [facility], [place] [phone] Director: Reji Son DO Platelet mean volume (Bld) [Entitic vol] 7.3 fL Normal 6.0-12.0 [facility] Comment on above: Performed By: #### B MPX, CDP ####[facility] [address], [place] [phone] Director: Reji Son DO Platelets (Bld) [#/Vol] 343 10*3/uL Normal 150-450 [facility] Comment on above: Performed By: #### B MPX, CDP ####[facility] Exj9605 [facility].[place], [place] [phone] Director: Reji Son DO RBC (Bld) [#/Vol] 5.09 10*6/uL Normal 4.5-5.9 [facility] Comment on above: Performed By: #### Tommy MPX, CDP ####[facility] Cma7455 [facility].[place], [place] [phone] Director: Reji Son DO WBC (Bld) [#/Vol] 7.6 10*3/uL Normal 3.5-11.0 [facility] Comment on above: Performed By: #### B MPX, CDP ####[facility] Uir7217 [place], [place] [phone] Director: Reji Son DO Cortisolon 06-17-2023 Cortisol 20.2 ug/dL High 2.5-19.5 [facility] Comment on above: Result Comment: Cortisol Reference Range: AM 6.0-18.4 PM 2.7-10.5 Performed By: #### T SH ####[facility] Zfx2957 [place], [place] [phone] Director: Reji Son DO#### T4, CORTI ####[address] [address] Lab Director: Norberto Condon MD EEG awake and asleepon 06-16 Nash Sanders MD 06/17/2023 4:40 PM EEG REPORT CLINICAL NEUROPHYSIOLOGY LABORATORY DEPARTMENT OF NEUROLOGY [facility] Patient: Susie Boyce Age: 72 y.o. [...] epileptiform abnormalities were seen. Nash Sanders MD [facility] [employer] [place] [facility] EEG awake and asleepOrdered By: Nash Sanders on 06-17-2023 [facility] Work Phone: Glucose,Whole Bloodon 2023 Glucose [Mass/Vol] 184 mg/dL High 75-110 [facility] Glucose [Mass/Vol] 167 mg/dL High 75-110 [facility] Glucose [Mass/Vol] 178 mg/dL High 75-110 [facility] POC Glucose Fingerstickon Glucose [Mass/Vol] 184 mg/dL High 75 - 110 mg/dL [facility] Interpretation and review of laboratory results Abnormal [facility] Glucose [Mass/Vol] 167 mg/dL High 75 - 110 mg/dL [facility] Interpretation and review of laboratory results Abnormal [facility] Glucose [Mass/Vol] 178 mg/dL High 75 - 110 mg/dL [facility] Interpretation and review of laboratory results Abnormal [facility] T4on 06-17-2023 T4 [Mass/Vol] 7.2 ug/dL 4.5 - 11.7 ug/dL [facility] TSHon 06-17-2023 TSH Qn 1.53 m[IU]/L [facility] Thyroid Stim. Horm.on 2023 Thyroid Stim. Horm. 1.53 uIU/mL Normal 0.30-5.00 [facility] Comment on above: Performed By: #### T ####[facility] Mof4814 [facility] [place] [address] Lab Director: Reji Son DO#### T4, CORTI ####[facility] [place] [address] Lab Director: Norberto Condon MD Thyroxine T4on 06-17-2023 T4 [Mass/Vol] 7.2 ug/dL Normal 4.5-11.7 [facility] Comment on above: Performed By: #### T SH ####[facility] Pza7949 [facility] [place] [address] lab Director: Reji Son DO#### T4, CORTI ####[facility] [place], [place] [id number] lab Director: Norberto Condon MD Basic Metabolic Panelon 05-29 Anion gap [Moles/Vol] 9 mmol/L 9 - 17 mmol/L [facility] [employer] Calcium [Mass/Vol] 9.0 mg/dL 8.6 - 10. 4 mg/dL [facility] Chloride [Moles/Vol] 103 mmol/L 98 - 10 7 mmol/L [facility] CO2 [Moles/Vol] 26 mmol/L 20 - 31 mmol/L [facility] Creatinine [Mass/Vol] 0.8 mg/dL 0.7 - 1.2 mg/dL [facility] GFR/1.73 sq M.predicted MDRD (S/P/Bld) [Vol rate/Area] - PINF [facility] Comment on above: These results are not [...] [Mass/Vol] 91 mg/dL 70 - 99 mg/dL [facility] Potassium [Moles/Vol] 4.2 mmol/L 3.7 - 5.3 mmol/L [facility] Sodium [Moles/Vol] 138 mmol/L 135 - 144 mmol/L [facility] Urea nitrogen [Mass/Vol] 14 mg/dL 8 - 23 mg/dL [facility] Basic Metabolic Profon 06-15 Anion gap [Moles/Vol] 9 mmol/L Normal 9-17 [facility] Comment on above: Performed By: #### B [employer] SUPERINTENDENT, CDP, BMP, TROPI ####[facility] Rkc8463 [facility] [place] [address] Lab Director: Reji Son DO Calcium [Mass/Vol] 9.0 mg/dL Normal 8.6-10.4 [facility] Comment on above: Performed By: #### B [employer] SUPERINTENDENT, CDP, BMP, TROPI ####[facility] [id number] [facility] [place] [address] Lab Director: Reji Son DO Chloride [Moles/Vol] 103 mmol/L Normal 98-107 [facility] Comment on above: Performed By: #### B [employer] SUPERINTENDENT, CDP, BMP, TROPI ####[facility] Kws1453 [facility] [place] [address] lab Director: Reji Son DO CO2 [Moles/Vol] 26 mmol/L Normal 20-31 [facility] Comment on above: Performed By: #### B [employer] SUPERINTENDENT, CDP, BMP, TROPI ####[facility] Rob0208 [facility] [place] [address] Lab Director: Reji Son DO Creatinine [Mass/Vol] 0.8 mg/dL Normal 0.7-1.2 [facility] Comment on above: Performed By: #### B [employer] SUPERINTENDENT, CDP, BMP, TROPI ####[facility] [id number] [facility] [place] [address] Lab Director: Reji Son DO GFR/1.73 sq M.predicted among non-blacks MDRD (S/P/Bld) [Vol rate/Area] mL/min/{1.73_m2} Normal >60 [facility] Comment on above: Result Comment: These results [...] renal tubular secretion. Performed By: #### B [employer] SUPERINTENDENT, CDP, BMP, TROPI ####[facility] Frz6761 [facility] [place] [address] Lab Director: Reji Son DO Glucose [Mass/Vol] 91 mg/dL Normal 70-99 [facility] Comment on above: Performed By: #### B [employer] SUPERINTENDENT, CDP, BMP, TROPI ####[facility] [id number] [facility] [place] [address] Lab Director: Reji Son DO Potassium [Moles/Vol] 4.2 mmol/L Normal 3.7-5.3 [facility] Comment on above: Performed By: #### B [employer] SUPERINTENDENT, CDP, BMP, TROPI ####[facility] Qip0215 [facility] [place] [address] Lab Director: Reji Son DO Sodium [Moles/Vol] 138 mmol/L Normal 135-144 [facility] Comment on above: Performed By: #### B [employer] SUPERINTENDENT, CDP, BMP, TROPI ####[facility] Irn9458 [facility] [place] [address] Lab Director: Reji Son DO Urea nitrogen [Mass/Vol] 14 mg/dL Normal 8-23 [facility] Comment on above: Performed By: #### B [employer] SUPERINTENDENT, CDP, BMP, TROPI ####[facility] [id number] [facility] [place] [address] Lab Director: Reji Son DO Brain Natri. Peptideon 06-15 Natriuretic peptide B (Bld) [Mass/Vol] 105 pg/mL Normal <300 [facility] Comment on above: Result Comment: An age-independent cutoff point of 300 pg/ml has a 98% negative predictive value excluding acute heart failure. Performed By: #### B [employer] SUPERINTENDENT, CDP, BMP, TROPI ####[facility] [id number] [facility] [place] [address] Lab Director: Reji Son DO Brain Natriuretic Peptideon 06-16-2023 Natriuretic peptide B (Bld) [Mass/Vol] 105 pg/mL NINF - 300 pg/mL [facility] Comment on above: An age-independent cutoff point of 300 pg/ml has a 98% negative predictive value excluding acute heart failure. [facility] CBC with Auto Differentialon 06-16-2023 Basophils (Bld) [#/Vol] 0.00 10*3/uL [facility] Basophils/100 WBC (Bld) 1 % 0 - 2 % [facility] Eosinophils (Bld) [#/Vol] 0.20 10*3/uL [facility] Eosinophils/100 WBC (Bld) 2 % 0 - 4 % [facility] Erythrocyte distribution width (RBC) [Ratio] 14.1 % 11.5 - 14.9 % [facility] Hematocrit (Bld) [Volume fraction] 46.1 % 41 - 53 % [facility] Hemoglobin (Bld) [Mass/Vol] 15.0 g/dL 13.5 - 17.5 g/dL [facility] Interpretation and review of laboratory results Abnormal [facility] Lymphocytes/100 WBC (Bld) 14 % Low 24 - 44 % [facility] Lymphocytes/100 WBC (Bld) 1.00 % [facility] MCH (RBC) [Entitic mass] 29.5 pg 26 - 34 pg [facility] MCHC (RBC) [Mass/Vol] 32.5 g/dL 31 - 37 g/dL [facility] MCV (RBC) [Entitic vol] 90.5 fL 80 - 100 fL [facility] Monocytes/100 WBC (Bld) 9 % High 1 - 7 % [facility] Monocytes/100 WBC (Bld) 0.70 % [facility] Neutrophils/100 WBC (Bld) 74 % High 36 - 66 % [facility] Platelet mean volume (Bld) [Entitic vol] 7.4 fL 6.0 - 12.0 fL [facility] Platelets (Bld) [#/Vol] 342 10*3/uL [facility] RBC (Bld) [#/Vol] 5.09 10*6/uL 4.5 - 5.9 m/uL [facility] Segmented neutrophils/100 WBC (Bld) 5.60 % [facility] WBC other (Bld) [#/Vol] 7.5 [facility] CBC with Diffon 06-16-2023 Abs. Basophil 0.00 k/uL Normal 0.0-0.2 [facility] Comment on above: Performed By: #### B [employer] SUPERINTENDENT, CDP, BMP, TROPI ####[facility] Evg0918 [place] [address] Lab Director: Reji Son DO Abs.Neutrophil (Seg) 5.60 k/uL Normal 1.3-9.1 [facility] Comment on above: Performed By: #### B [employer] SUPERINTENDENT, CDP, BMP, TROPI ####[facility] [id number] [place] [address] Lab Director: Reji Son DO Basophils/100 WBC (Bld) 1 % Normal 0-2 [facility] Comment on above: Performed By: #### B [employer] SUPERINTENDENT, CDP, BMP, TROPI ####[facility] Nmd6871 [place] [address] Lab Director: Reji Son DO Eosinophils (Bld) [#/Vol] 0.20 10*3/uL Normal 0.0-0.4 [facility] Comment on above: Performed By: #### B [employer] SUPERINTENDENT, CDP, BMP, TROPI ####[facility] Yeh3611 [facility] [address] [facility] Director: Reji Son DO Eosinophils/100 WBC (Bld) 2 % Normal 0-4 [facility] Comment on above: Performed By: #### B [employer] SUPERINTENDENT, CDP, BMP, TROPI ####[facility] [id number] [facility] [place] [address] [facility] Director: Reji Son DO Erythrocyte distribution width (RBC) [Ratio] 14.1 % Normal 11.5-14.9 [facility] Comment on above: Performed By: #### B [employer] SUPERINTENDENT, CDP, BMP, TROPI ####[facility] [id number] [facility] [place] [address] [facility] Director: Reji Son DO Hematocrit (Bld) [Volume fraction] 46.1 % Normal 41-53 [facility] Comment on above: Performed By: #### B [employer] SUPERINTENDENT, CDP, BMP, TROPI ####[place] [id number] [facility] [place] [address] [facility] Director: Reji Son DO Hemoglobin (Bld) [Mass/Vol] 15.0 g/dL Normal 13.5-17.5 [facility] Comment on above: Performed By: #### B [employer] SUPERINTENDENT, CDP, BMP, TROPI ####[facility] [id number] [place] [address].[place] [address] Lab Director: Reji Son DO Lymphocytes (Bld) [#/Vol] 1.00 10*3/uL Normal 1.0-4.8 [facility] Comment on above: Performed By: #### B GREENS OR GROUNDS SUPERINTENDENT, CDP, BMP, TROPI ####[facility] [id number] [place] [address] Lab Director: Reji Son DO Lymphocytes/100 WBC (Bld) 14 % Low 24-44 [facility] Comment on above: Performed By: #### B GREENS OR GROUNDS SUPERINTENDENT, CDP, BMP, TROPI ####[facility] [id number] [facility].[place], [place] [phone] Director: Reji Son DO MCH (RBC) [Entitic mass] 29.5 pg Normal 26-34 [facility] Comment on above: Performed By: #### B GREENS [employer] GROUNDS SUPERINTENDENT, CDP, BMP, TROPI ####[facility] [id number] [facility].[place], [place] [phone] Director: Reji Son DO MCHC (RBC) [Mass/Vol] 32.5 g/dL Normal 31-37 [facility] Comment on above: Performed By: #### B GREENS OR GROUNDS SUPERINTENDENT, CDP, BMP, TROPI ####[facility] [id number] [facility] [place] [address] Lab Director: Reji Son DO MCV (RBC) [Entitic vol] 90.5 fL Normal 80-100 [facility] Comment on above: Performed By: #### B GREENS [employer] GROUNDS SUPERINTENDENT, CDP, BMP, TROPI ####[facility] [id number] [facility] [place] [address] Lab Director: Reji Son DO Monocytes (Bld) [#/Vol] 0.70 10*3/uL Normal 0.1-1.3 [facility] Comment on above: Performed By: #### B GREENS [employer] GROUNDS SUPERINTENDENT, CDP, BMP, TROPI ####[facility] [id number] [facility] [place] [address] Lab Director: Reji Son DO Monocytes/100 WBC (Bld) 9 % High 1-7 [facility] Comment on above: Performed By: #### B GREENS [employer] GROUNDS SUPERINTENDENT, CDP, BMP, TROPI ####[facility] [address], [place] [phone] Director: Reji Son DO Neutrophil (Seg) 74 % High 36-66 [facility] Comment on above: Performed By: #### B GREENS [employer] GROUNDS SUPERINTENDENT, CDP, BMP, TROPI ####[facility] [address], [place] [phone] Director: Reji Son DO Platelet mean volume (Bld) [Entitic vol] 7.4 fL Normal 6.0-12.0 [facility] Comment on above: Performed By: #### B GREENS [employer] GROUNDS SUPERINTENDENT, CDP, BMP, TROPI ####[facility] [id number] [facility].[place], [place] [phone] Director: Reji Son DO Platelets (Bld) [#/Vol] 342 10*3/uL Normal 150-450 [facility] Comment on above: Performed By: #### B GREENS [employer] GROUNDS SUPERINTENDENT, CDP, BMP, TROPI ####[facility] Jae1277 [facility].[place], [place] [phone] Director: Reji Son DO RBC (Bld) [#/Vol] 5.09 10*6/uL Normal 4.5-5.9 [facility] Comment on above: Performed By: #### B GREENS [employer] GROUNDS SUPERINTENDENT, CDP, BMP, TROPI ####[facility] [id number] [facility], [place] [phone] Director: Reji Son DO WBC (Bld) [#/Vol] 7.5 10*3/uL Normal 3.5-11.0 [facility] Comment on above: Performed By: #### B GREENS [employer] GROUNDS SUPERINTENDENT, CDP, BMP, TROPI ####[facility] [id number] [facility], [place] [phone] Director: Reji Son DO Glucose,Whole Bloodon 2023 Glucose [Mass/Vol] 171 mg/dL High 75-110 [facility] Glucose [Mass/Vol] 92 mg/dL Normal 75-110 [facility] POC Glucose Fingerstickon Glucose [Mass/Vol] 171 mg/dL High 75 - 110 mg/dL [facility] Interpretation and review of laboratory results Abnormal [facility] Glucose [Mass/Vol] 92 mg/dL 75 - 110 mg/dL [facility] Portable XR Chest AP single viewon 06-16-2023 No acute airspace disease identified. [facility] EXAMINATION: ONE XRAY VIEW OF THE CHEST 06/16/2023 11:47 am COMPARISON: None. HISTORY: ORDERING SYSTEM PROVIDED HISTORY: chest pain, syncope TECHNOLOGIST PROVIDED HISTORY: chest pain, syncope Reason for Exam: chest pain, syncope FINDINGS: The cardiomediastinal silhouette is within normal limits. There is no consolidation, pneumothorax or evidence for edema. No evidence for effusion. No acute osseous abnormality is identified. [facility] Betito Williamson MD - 06/16/2023 EXAMINATION: [...] identified. IMPRESSION: No acute airspace disease identified. [facility] Radiology Study observation (narrative) [facility] Portable XR Chest AP single viewOrdered By: Betito Williamson on 06-16-2023 [facility] Work Phone: Troponinon 06-16-2023 Troponin I.cardiac High sensitivity method [Mass/Vol] 15 ng/L 0 - 22 ng/L [facility] Comment on above: High Sensitivity Tro ponin values cannot be compared with other Troponin methodologies. [facility] Troponin, High Sens 15 ng/L Normal 0-22 [facility] Comment on above: Result Comment: High Sensitivity Troponin values cannot be compared with other Troponin methodologies. Performed By: #### T ROPI ####[facility] [address] [place] [address] Lab Director: Reji Son DO Troponin I.cardiac High sensitivity method [Mass/Vol] 17 ng/L 0 - 22 ng/L [facility] Comment on above: High Sensitivity Tro ponin values cannot be compared with other Troponin methodologies. [facility] Troponin, High Sens 17 ng/L Normal 0-22 [facility] Comment on above: Result Comment: High Sensitivity Troponin values cannot be compared with other Troponin methodologies. Performed By: #### B GREENS OR GROUNDS SUPERINTENDENT, CDP, BMP, TROPI ####[facility] Kje[address] [place] [address] [facility] Director: Reji Son DO XR CHEST [...] Betito Williamson MD 06/16/23 Final result Normal [facility] BASIC METABOLIC PANLon 04-20 Anion gap [Moles/Vol] 9 mmol/L Normal 5-15 [facility] Comment on above: Performed By: #### C BCA, BMP, 3040-3, LIVR #### [facility] ([id number]) [address], [address] [place] [address] Calcium [Mass/Vol] 8.6 mg/dL Normal 8.5-10.5 [facility] Comment on above: Performed By: #### C BCA, BMP, 3040-3, LIVR #### [facility] ([id number]) [address], [address] [place] [address] Chloride [Moles/Vol] 104 mmol/L Normal 98-109 [facility] Comment on above: Performed By: #### C BCA, BMP, 3040-3, LIVR #### [facility] ([id number]) [address], [address] [place] [address] CO2 [Moles/Vol] 24 mmol/L Normal 22-32 [facility] Comment on above: Performed By: #### C BCA, BMP, 3040-3, LIVR #### [facility] ([id number]) [address], [facility] [address] [place] [address] Creatinine [Mass/Vol] 0.87 mg/dL Normal 0.60-1.30 [facility] Comment on above: Result Comment: METH OD TRACEABLE TO IDMS STANDARD Performed By: #### C MARIA ISABEL, BMP, 3040-3, LIVR #### [facility] ([id number]) [address], [address] [place] [address] eGFR (CKD-EPI) NON-RACE DEPENDENT >90 Normal >59 [facility] Comment on above: Result Comment: Reported eGFR is based on the CKD-EPI 2020 equation that does not use a race coefficient. Performed By: #### C BCA, BMP, 3040-3, LIVR #### [facility] ([id number]) [address], [address] [place] [address] Glucose [Mass/Vol] 178 mg/dL High 65-99 [facility] Comment on above: Performed By: #### C BCA, BMP, 3040-3, LIVR #### [facility] ([id number]) [address], [address] [place] [address] Potassium [Moles/Vol] 4.3 mmol/L Normal 3.5-5.0 [facility] Comment on above: Performed By: #### C DARREN NICOLAS, 3039-04, LIVR #### [facility] ([id number]) [address], [address] [place] [address] Sodium [Moles/Vol] 137 mmol/L Normal 134-146 [facility] Comment on above: Performed By: #### C DARREN NICOLAS, 3039-04, LIVR #### [facility] ([id number]) [address], [address] [place] [address] Urea nitrogen [Mass/Vol] 16 mg/dL Normal 5-27 [facility] Comment on above: Performed By: #### C DARREN NICOLAS, 3039-04, LIVR #### [facility] ([id number]) [address], [address] [place] [address] CBC AND AUTO DIFFon 04-20-19 24 ABSOLUTE BASOPHIL 0.1 X10E9/L Normal 0.0-0.2 [facility] Comment on above: Performed By: #### C DARREN NICOLAS, 3039-04, LIVR #### [facility] ([id number]) [address], [address] [place] [address] ABSOLUTE NEUTROPHIL 9.9 X10E9/L High 1.5-6.6 [facility] Comment on above: Performed By: #### C DARREN NICOLAS, 3039-04, LIVR #### [facility] ([id number]) [address], [address] [place] [address] Basophils/100 WBC (Bld) 0.5 % Normal [facility] Comment on above: Performed By: #### C DARREN NICOLAS, 3, LIVR #### [facility] ([id number]) [address], [address] [place] [address] Eosinophils (Bld) [#/Vol] 0.2 10*3/uL Normal 0.0-0.4 [facility] Comment on above: Performed By: #### C DARREN NICOLAS, 3039-3, LIVR #### [facility] ([id number]) [address], [address] [place] [address] Eosinophils/100 WBC (Bld) 1.7 % Normal [facility] Comment on above: Performed By: #### C DARREN NICOLAS, 3039-3, LIVR #### [facility] ([id number]) [address], [facility] [address] [place] [address] Erythrocyte distribution width (RBC) [Ratio] 13.4 % Normal 11.5-15.0 [facility] Comment on above: Performed By: #### C DARREN NICOLAS, 3, LIVR #### [facility] ([id number]) [address], [facility] [address] [place] [address] Hematocrit (Bld) [Volume fraction] 46.4 % Normal 39-49 [facility] Comment on above: Performed By: #### C DARREN NICOLAS, 3039-04, LIVR #### [facility] ([id number]) [address], [facility] [address] [place] [address] Hemoglobin (Bld) [Mass/Vol] 15.6 g/dL Normal 13.0-17.0 [facility] Comment on above: Performed By: #### C DARREN NICOLAS, 3, LIVR #### [facility] ([id number]) [address], [facility] [address] [place] [address] Lymphocytes (Bld) [#/Vol] 1.5 10*3/uL Normal 1.0-3.5 [facility] Comment on above: Performed By: #### C MARIA ISABEL, BMP, 0-3, LIVR #### [facility] ([id number]) [address], [facility] [address] [place] [address] Lymphocytes/100 WBC (Bld) 12.3 % Normal [facility] Comment on above: Performed By: #### C MARIA ISABEL BMP, 0-3, LIVR #### [facility] ([id number]) [address], [address] [place] [address] MCH (RBC) [Entitic mass] 29.8 pg Normal 27-34 [facility] Comment on above: Performed By: #### C MARIA ISABEL BMP, 0-3, LIVR #### [facility] ([id number]) [address], [address] [place] [address] MCHC (RBC) [Mass/Vol] 33.6 g/dL Normal 32-36 [facility] Comment on above: Performed By: #### C MARIA ISABEL, BMP, 3039-3, LIVR #### [facility] ([id number]) [address], [facility] [address] [place] [address] MCV (RBC) [Entitic vol] 89 fL Normal 80-100 [facility] Comment on above: Performed By: #### C MARIA ISABEL, BMP, 3039-3, LIVR #### [facility] ([id number]) [address], [address] [place] [address] Monocytes (Bld) [#/Vol] 0.9 10*3/uL Normal 0-0.9 [facility] Comment on above: Performed By: #### C MARIA ISABEL BMP, 0-3, LIVR #### [facility] ([id number]) [address], [facility] [address] [place] [address] Monocytes/100 WBC (Bld) 7.0 % Normal [facility] Comment on above: Performed By: #### C MARIA ISABEL, BMP, 0-3, LIVR #### [facility] ([id number]) [address], [address] [place] [address] Neutrophils/100 WBC (Bld) 78.5 % Normal [facility] Comment on above: Performed By: #### C MARIA ISABEL, BMP, 0-3, LIVR #### [facility] ([id number]) [address], [address] [place] [address] Platelet mean volume (Bld) [Entitic vol] 7.4 fL Normal 7-12 [facility] Comment on above: Performed By: #### C MARIA ISABEL, BMP, 0-3, LIVR #### [facility] ([id number]) [address], [address] [place] [address] Platelets (Bld) [#/Vol] 442 10*3/uL Normal 150-450 [facility] Comment on above: Performed By: #### C MARIA ISABEL, BMP, 3039-3, LIVR #### [facility] ([id number]) [address], [address] [place] [address] RBC COUNT 5.23 X10E12/L Normal 4.10-5.70 [facility] Comment on above: Performed By: #### C MARIA ISABEL, BMP, 0-3, LIVR #### [facility] ([id number]) [address], [address] [place] [address] WBC (Bld) [#/Vol] 12.5 10*3/uL High 4.0-11.0 [facility] Comment on above: Performed By: #### C MARIA ISABEL, BMP, 0-3, LIVR #### [facility] ([id number]) [address], [address] [place] [address] Glucose Glucometer (BldC) [M ass/Vol]on 04-20-2023 Glucose [Mass/Vol] 269 mg/dL High 65-99 [facility] Glucose [Mass/Vol] 162 mg/dL High 65-99 [facility] BASIC METABOLIC PANLon 04-19 Anion gap [Moles/Vol] 12 mmol/L Normal 5-15 [facility] Comment on above: Performed By: #### C BCA, BMP, 3040-3, LIVR #### [facility] ([id number]) [address], [address] [place] [address] Calcium [Mass/Vol] 9.2 mg/dL Normal 8.5-10.5 [facility] Comment on above: Performed By: #### C BCA, BMP, 3040-3, LIVR #### [facility] ([id number]) [address], [facility] [address] [place] [address] Chloride [Moles/Vol] 103 mmol/L Normal 98-109 [facility] Comment on above: Performed By: #### C BCA, BMP, 3040-3, LIVR #### [facility] ([id number]) [address], [facility] [address] [place] [address] CO2 [Moles/Vol] 25 mmol/L Normal 22-32 [facility] Comment on above: Performed By: #### C BCA, BMP, 3040-3, LIVR #### [facility] ([id number]) [address], [facility] [address] [place] [address] Creatinine [Mass/Vol] 0.93 mg/dL Normal 0.60-1.30 [facility] Comment on above: Result Comment: METH OD TRACEABLE TO IDMS STANDARD Performed By: #### C BCA, BMP, 3040-3, LIVR #### [facility] ([id number]) [address] [address] [place] [address] GFR/1.73 sq M.predicted among non-blacks MDRD (S/P/Bld) [Vol rate/Area] 87 mL/min/{1.73_m2} Normal >59 [facility] Comment on above: Result Comment: Reported eGFR is based on the CKD-EPI 2020 equation that does not use a race coefficient. Performed By: #### C BCA, BMP, 3040-3, LIVR #### [facility] ([id number]) [address], [address] [place] [address] Glucose [Mass/Vol] 129 mg/dL High 65-99 [facility] Comment on above: Performed By: #### C MARIA ISABEL BMP, 3040-3, LIVR #### [facility] ([id number]) [address], [address] [place] [address] Potassium [Moles/Vol] 3.8 mmol/L Normal 3.5-5.0 [facility] Comment on above: Performed By: #### C MARIA ISABEL, BMP, 0-3, LIVR #### [facility] ([id number]) [address], [address] [place] [address] Sodium [Moles/Vol] 140 mmol/L Normal 134-146 [facility] Comment on above: Performed By: #### C MARIA ISABEL, BMP, 3039-3, LIVR #### [facility] ([id number]) [address], [address] [place] [address] Urea nitrogen [Mass/Vol] 14 mg/dL Normal 5-27 [facility] Comment on above: Performed By: #### C BCA, BMP, 3039-3, LIVR #### [facility] ([id number]) [address], [facility] [address] [place] [address] CBC AND AUTO DIFFon 04-19-19 24 ABSOLUTE BASOPHIL 0.0 X10E9/L Normal 0.0-0.2 [facility] Comment on above: Performed By: #### C BCA, BMP, 3040-3, LIVR #### [facility] ([id number]) [address] [address] [place] [address] ABSOLUTE NEUTROPHIL 10.0 X10E9/L High 1.5-6.6 [facility] Comment on above: Performed By: #### C BCA, BMP, 3040-3, LIVR #### [facility] ([id number]) [address], [address] [place] [address] Basophils/100 WBC (Bld) 0.2 % Normal [facility] Comment on above: Performed By: #### C MARIA ISABEL BMP, 3039-3, LIVR #### [facility] ([id number]) [address] [place] [address] Eosinophils (Bld) [#/Vol] 0.2 10*3/uL Normal 0.0-0.4 [facility] Comment on above: Performed By: #### C MARIA ISABEL, BMP, 3039-3, LIVR #### [facility] ([id number]) [address] [place] [address] Eosinophils/100 WBC (Bld) 1.4 % Normal [facility] Comment on above: Performed By: #### C MARIA ISABEL, BMP, 3039-3, LIVR #### [facility] ([id number]) [address] [place] [address] Erythrocyte distribution width (RBC) [Ratio] 13.4 % Normal 11.5-15.0 [facility] Comment on above: Performed By: #### C MARIA ISABEL, BMP, 3039-3, LIVR #### [facility] ([id number]) [address], [facility] [address] [place] [address] Hematocrit (Bld) [Volume fraction] 46.3 % Normal 39-49 [facility] Comment on above: Performed By: #### C BCA, BMP, 0-3, LIVR #### [facility] ([id number]) [address], [address] [place] [address] Hemoglobin (Bld) [Mass/Vol] 15.6 g/dL Normal 13.0-17.0 [facility] Comment on above: Performed By: #### C BCA, BMP, 3040-3, LIVR #### [facility] ([id number]) [address], [address] [place] [address] Lymphocytes (Bld) [#/Vol] 1.7 10*3/uL Normal 1.0-3.5 [facility] Comment on above: Performed By: #### C MARIA ISABEL, BMP, 0-3, LIVR #### [facility] ([id number]) [address], [facility] [address] [place] [address] Lymphocytes/100 WBC (Bld) 13.3 % Normal [facility] Comment on above: Performed By: #### C MARIA ISABEL, BMP, 3039-3, LIVR #### [facility] ([id number]) [address], [facility] [address] [place] [address] MCH (RBC) [Entitic mass] 30.1 pg Normal 27-34 [facility] Comment on above: Performed By: #### C MARIA ISABEL, BMP, 3039-3, LIVR #### [facility] ([id number]) [address] [place] [address] MCHC (RBC) [Mass/Vol] 33.7 g/dL Normal 32-36 [facility] Comment on above: Performed By: #### C MARIA ISABEL, BMP, 3039-3, LIVR #### [facility] ([id number]) [address], [address] [address] MCV (RBC) [Entitic vol] 89 fL Normal 80-100 [facility] Comment on above: Performed By: #### C MARIA ISABEL, BMP, 0-3, LIVR #### [facility] ([id number]) [address], [facility] [address] [place] [address] Monocytes (Bld) [#/Vol] 1.0 10*3/uL High 0-0.9 [facility] Comment on above: Performed By: #### C MARIA ISABEL, BMP, 0-3, LIVR #### [facility] ([id number]) [address], [address] [place] [address] Monocytes/100 WBC (Bld) 7.9 % Normal [facility] Comment on above: Performed By: #### C MARIA ISABEL, BMP, 3040-3, LIVR #### [facility] ([id number]) [address], [facility] [address] [place] [address] Neutrophils/100 WBC (Bld) 77.2 % Normal [facility] Comment on above: Performed By: #### C MARIA ISABEL, BMP, 3040-3, LIVR #### [facility] ([id number]) [address] [place] [address] Platelet mean volume (Bld) [Entitic vol] 7.2 fL Normal 7-12 [facility] Comment on above: Performed By: #### C MARIA ISABEL, BMP, 3040-3, LIVR #### [facility] ([id number]) [address] [place] [address] Platelets (Bld) [#/Vol] 470 10*3/uL High 150-450 [facility] Comment on above: Performed By: #### C MARIA ISABEL, BMP, 3040-3, LIVR #### [facility] ([id number]) [address] [address] [place] [address] RBC COUNT 5.20 X10E12/L Normal 4.10-5.70 [facility] Comment on above: Performed By: #### C MARIA ISABEL, BMP, 3040-3, LIVR #### [facility] ([id number]) [address], [address] [place] [address] WBC (Bld) [#/Vol] 12.9 10*3/uL High 4.0-11.0 [facility] Comment on above: Performed By: #### C MARIA ISABEL, BMP, 3040-3, LIVR #### [facility] ([id number]) [address] [place] [address], [address] [place] [address] Glucose Glucometer (BldC) [M ass/Vol]on 04-19-2023 Glucose [Mass/Vol] 232 mg/dL High 65-99 [facility] Glucose [Mass/Vol] 123 mg/dL High 65-99 [facility] Glucose [Mass/Vol] 129 mg/dL High 65-99 [facility] Surgical Pathologyon 024 Surgical Pathology Normal [facility] Comment on above: Result Comment: [facility] [address] [place] [address] Surgical Pathology Consultation Patient Name:SUSIE BOYCE:1950 (Age: 72)Gender:MTaken:4Reported:04/21/2023hysician(s):Andrzej Fine MD ( )Copy To: Rec. #:[id number]: #[id number] Final Pathologic Diagnosis 1. Cecal colon polyp: Tubular adenoma. 2. Colon, random biopsy: Hyperplastic polyp fragments. 3. Ascending colon polyp: Tubular adenoma. 4. Descending colon polyp: Tubular adenoma. Report Electronically Signed Out st04/21/2023Lorin Campos MD Interpretation performed at [facility], [id number] [place] [address], License number: [id number]. Clinical History Melena. 2. Rule out microscopic colitis. Gross Description 1. Received in formalin labeled [facility], #1: Cecal colon polyp are 2 lockett bits of soft tissue, each 0.3 cm in greatest dimension. Filtered and submitted in a single cassette. (1, ns, [id number], m7) MG 2. Received in formalin labeled [facility], #2: Random colon biopsy rule out microscopic colitis are 8 lockett bits/strips of soft tissue, ranging from 0.2-0.7 cm in greatest dimension. Filtered and submitted in a single cassette. (1, ns, [id number], m7) MG 3. [facility], [facility]: Ascending colon polyp are 4 lockett bits/strips of soft tissue, ranging from 0.1-0.6 cm in greatest dimension. Filtered and submitted in a single cassette. (1, ns, [id number], m7) MG 4. Received in formalin labeled [facility], #4: Descending colon polyp are 3 lockett bits of soft tissue, ranging from 0.4-0.5 cm in greatest dimension. Filtered and submitted in a single cassette. (1, ns, [id number], m7) MG mjg/04/19/2023EAK Specimen(s) Received 1: Cecal colon polyp 2: Colon, random biopsy 3: Ascending colon polyp 4: Descending colon polyp Fee Codes(s): 1; 54955 2; 21386 3; 32006 4; 24468 BASIC METABOLIC PANLon 04-18 Anion gap [Moles/Vol] 7 mmol/L Normal 5-15 [facility] Comment on above: Performed By: #### C BCA, BMP, 3040-3, LIVR #### [facility] ([id number]) [address], [address] [place] [address] Calcium [Mass/Vol] 8.8 mg/dL Normal 8.5-10.5 [facility] Comment on above: Performed By: #### C BCA, BMP, 3040-3, LIVR #### [facility] ([id number]) [address], [address] [place] [address] Chloride [Moles/Vol] 102 mmol/L Normal 98-109 [facility] Comment on above: Performed By: #### C BCA, BMP, 3040-3, LIVR #### [facility] ([id number]) [address], [address] [place] [address] CO2 [Moles/Vol] 29 mmol/L Normal 22-32 [facility] Comment on above: Performed By: #### C BCA, BMP, 3040-3, LIVR #### [facility] ([id number]) [address], [address] [place] [address] Creatinine [Mass/Vol] 0.90 mg/dL Normal 0.60-1.30 [facility] Comment on above: Result Comment: METH OD TRACEABLE TO IDMS STANDARD Performed By: #### C BCA, BMP, 3040-3, LIVR #### [facility] ([id number]) [address], [facility] [address] [place] [address] eGFR (CKD-EPI) NON-RACE DEPENDENT >90 Normal >59 [facility] Comment on above: Result Comment: Reported eGFR is based on the CKD-EPI 2020 equation that does not use a race coefficient. Performed By: #### C BCA, BMP, 3040-3, LIVR #### [facility] ([id number]) [address], [address] [place] [address] Glucose [Mass/Vol] 146 mg/dL High 65-99 [facility] Comment on above: Performed By: #### C BCA, BMP, 3040-3, LIVR #### [facility] ([id number]) [address], [address] [place] [address] Potassium [Moles/Vol] 3.9 mmol/L Normal 3.5-5.0 [facility] Comment on above: Performed By: #### C BCA, BMP, 3040-3, LIVR #### [facility] ([id number]) [address], [address] [place] [address] Sodium [Moles/Vol] 138 mmol/L Normal 134-146 [facility] Comment on above: Performed By: #### C BCA, BMP, 3040-3, LIVR #### [facility] ([id number]) [address] [address] [place] [address] Urea nitrogen [Mass/Vol] 15 mg/dL Normal 5-27 [facility] Comment on above: Performed By: #### C BCA, BMP, 3040-3, LIVR #### [facility] ([id number]) [address], [address] [place] [address] C DIFFICILE BY PCRon 024 C. difficile toxin genes EVA+probe Ql (Stl) TOXIGENIC C DIFF Negative (qualifier value) 027 NAP1 Negative (qualifier value) Normal PRNEG [facility] Comment on above: Performed By: #### C DARREN NICOLAS, 3, LIVR #### [facility] ([id number]) [address], [address] [place] [address] CBC AND AUTO DIFFon 04-18-19 24 ABSOLUTE BASOPHIL 0.1 X10E9/L Normal 0.0-0.2 [facility] Comment on above: Performed By: #### DARREN Springer BCA, 3, LIVR #### [facility] ([id number]) [address], [address] [place] [address] ABSOLUTE NEUTROPHIL 10.0 X10E9/L High 1.5-6.6 [facility] Comment on above: Performed By: #### DARREN Springer BCA, 3, LIVR #### [facility] ([id number]) [address], [address] [place] [address] Basophils/100 WBC (Bld) 0.8 % Normal [facility] Comment on above: Performed By: #### C DARREN NICOLAS, 3, LIVR #### [facility] ([id number]) [address], [address] [place] [address] Eosinophils (Bld) [#/Vol] 0.2 10*3/uL Normal 0.0-0.4 [facility] Comment on above: Performed By: #### C DARREN NICOLAS, 3039-3, LIVR #### [facility] ([id number]) [address], [address] [place] [address] Eosinophils/100 WBC (Bld) 1.4 % Normal [facility] Comment on above: Performed By: #### C MARIA ISABEL BMP, 3039-04, LIVR #### [facility] ([id number]) [address] [address] [place] [address] Erythrocyte distribution width (RBC) [Ratio] 13.2 % Normal 11.5-15.0 [facility] Comment on above: Performed By: #### C MARIA ISABEL BMP, 3, LIVR #### [facility] ([id number]) [address] [address] [place] [address] Hematocrit (Bld) [Volume fraction] 43.1 % Normal 39-49 [facility] Comment on above: Performed By: #### C MARIA ISABEL, BMP, 3039-04, LIVR #### [facility] ([id number]) [address], [facility] [address] [place] [address] Hemoglobin (Bld) [Mass/Vol] 14.7 g/dL Normal 13.0-17.0 [facility] Comment on above: Performed By: #### C MARIA ISABEL, BMP, 3039-04, LIVR #### [facility] ([id number]) [address] [address] Lymphocytes (Bld) [#/Vol] 1.7 10*3/uL Normal 1.0-3.5 [facility] Comment on above: Performed By: #### C MARIA ISABEL, BMP, 3039-3, LIVR #### [facility] ([id number]) [address], [facility] [address] [place] [address] Lymphocytes/100 WBC (Bld) 13.1 % Normal [facility] Comment on above: Performed By: #### C MARIA ISABEL, BMP, 3, LIVR #### [facility] ([id number]) [address], [facility] [address] [place] [address] MCH (RBC) [Entitic mass] 30.2 pg Normal 27-34 [facility] Comment on above: Performed By: #### C DARREN NICOLAS, 3039-04, LIVR #### [facility] ([id number]) [address], [address] [place] [address] MCHC (RBC) [Mass/Vol] 34.1 g/dL Normal 32-36 [facility] Comment on above: Performed By: #### C MARIA ISABEL BMP, 3039-04, LIVR #### [facility] ([id number]) [address], [facility] [address] [place] [address] MCV (RBC) [Entitic vol] 89 fL Normal 80-100 [facility] Comment on above: Performed By: #### C DARREN NICOLAS, 3039-04, LIVR #### [facility] ([id number]) [address], [facility] [address] [place] [address] Monocytes (Bld) [#/Vol] 1.0 10*3/uL High 0-0.9 [facility] Comment on above: Performed By: #### C DARREN NICOLAS, 3039-04, LIVR #### [facility] ([id number]) [address], [address] [place] [address] Monocytes/100 WBC (Bld) 7.5 % Normal [facility] Comment on above: Performed By: #### C DARREN NICOLAS, 3039-04, LIVR #### [facility] ([id number]) [address], [facility] [address] [place] [address] Neutrophils/100 WBC (Bld) 77.2 % Normal [facility] Comment on above: Performed By: #### C MARIA ISABEL BMP, 3, LIVR #### [facility] ([id number]) [address], [address] [place] [address] Platelet mean volume (Bld) [Entitic vol] 7.4 fL Normal 7-12 [facility] Comment on above: Performed By: #### C MARIA ISABEL, [facility], 3040-3, LIVR #### [facility] ([id number]) [address], [address] [place] [address] Platelets (Bld) [#/Vol] 446 10*3/uL Normal 150-450 [facility] Comment on above: Performed By: #### C MARIA ISABEL, [facility], 3040-3, LIVR #### [facility] ([id number]) [address], [facility] [address] [place] [address] RBC COUNT 4.87 X10E12/L Normal 4.10-5.70 [facility] Comment on above: Performed By: #### C MARIA ISABEL, [facility], 3040-3, LIVR #### [facility] ([id number]) [address], [facility] [address] [place] [address] WBC (Bld) [#/Vol] 12.9 10*3/uL High 4.0-11.0 [facility] Comment on above: Performed By: #### C MARIA ISABEL, [facility], 3040-3, LIVR #### [facility] ([id number]) [address], [facility] [address] [place] [address] GI PANELon 04-18-2023 Gastrointestinal pathogens DNA and [...] SAPOVIRUS Not detected (qualifier value) Normal NDET [facility] Comment on above: Performed By: #### C BCA, BMP, 3040-3, LIVR #### [facility] ([id number]) [address] [place] [address] [address] [place] [address] Glucose Glucometer (BldC) [M ass/Vol]on 04-18-2023 Glucose [Mass/Vol] 164 mg/dL High 65-99 [facility] Glucose [Mass/Vol] 146 mg/dL High 65-99 [facility] Glucose [Mass/Vol] 145 mg/dL High 65-99 [facility] Glucose [Mass/Vol] 161 mg/dL High 65-99 [facility] Surgical Pathologyon 024 Surgical Pathology Normal [facility] Comment on above: Result Comment: [facility] [address] [place] [address] Surgical Pathology Consultation Patient Name:SUSIE BOYCE:1950 (Age: 72)Gender:MTaken:4Reported:04/20/2023hysician(s):Andrzej Fine MD ( )Copy To: Rec. #:[id number]: #[id number] Final Pathologic Diagnosis 1. Duodenum biopsy: Duodenal mucosa with no specific abnormalities. Negative for villous blunting, atypia, or malignancy. Negative for evidence of celiac disease. 2. Gastric biopsy: Mild chronic gastritis. Negative for helicobacter organisms on routine H&E examination. Negative for dysplasia or malignancy. Report Electronically Signed Out 04/20/2023Lorin Campos MD Interpretation performed at [facility], [address] [place] [address], License number: [id number]. Clinical History Melena. 1. R/O celiac 2. H pylori screening. Gross Description 1. [facility], [facility]: Duodenum biopsy R/O celiac are 6 lockett bits of soft tissue, ranging from 0.2-0.4 cm in greatest dimension. Filtered and submitted in a single cassette. (1, ns, [id number], m7) MG 2. Received in formalin labeled [facility], #2: Gastric biopsy are 4 lockett bits of soft tissue, ranging from 0.1-0.4 cm in greatest dimension. Filtered and submitted in a single cassette. (1, ns, [id number], m7) MG mjg//GR Specimen(s) Received 1: Duodenum biopsy 2: Gastric biopsy Fee Codes(s): 1; 35115 2; 92776 BASIC METABOLIC PANLon 04-17 Anion gap [Moles/Vol] 9 mmol/L Normal 5-15 [facility] Comment on above: Performed By: #### C BCA, BMP, 3040-3, LIVR #### [facility] ([id number]) [address], [address] [place] [address] Calcium [Mass/Vol] 8.7 mg/dL Normal 8.5-10.5 [facility] Comment on above: Performed By: #### C BCA, BMP, 3040-3, LIVR #### [facility] ([id number]) [address], [address] [place] [address] Chloride [Moles/Vol] 104 mmol/L Normal 98-109 [facility] Comment on above: Performed By: #### C BCA, BMP, 3040-3, LIVR #### [facility] ([id number]) [address], [address] [place] [address] CO2 [Moles/Vol] 25 mmol/L Normal 22-32 [facility] Comment on above: Performed By: #### C BCA, BMP, 3040-3, LIVR #### [facility] ([id number]) [address], [address] [place] [address] Creatinine [Mass/Vol] 0.77 mg/dL Normal 0.60-1.30 [facility] Comment on above: Result Comment: METH OD TRACEABLE TO IDMS STANDARD Performed By: #### C BCA BMP, 3040-3, LIVR #### [facility] ([id number]) [address], [address] [place] [address] eGFR (CKD-EPI) NON-RACE DEPENDENT >90 Normal >59 [facility] Comment on above: Result Comment: Reported eGFR is based on the CKD-EPI 2020 equation that does not use a race coefficient. Performed By: #### C BCA BMP, 3040-3, LIVR #### [facility] ([id number]) [address], [address] [place] [address] Glucose [Mass/Vol] 195 mg/dL High 65-99 [facility] Comment on above: Performed By: #### C BCA, BMP, 3040-3, LIVR #### [facility] ([id number]) [address] [address] [place] [address] Potassium [Moles/Vol] 3.8 mmol/L Normal 3.5-5.0 [facility] Comment on above: Performed By: #### C BCA, BMP, 3040-3, LIVR #### [facility] ([id number]) [address], [address] [place] [address] Sodium [Moles/Vol] 138 mmol/L Normal 134-146 [facility] Comment on above: Performed By: #### C BCA, BMP, 3040-3, LIVR #### [facility] ([id number]) [address] [address] [place] [address] Urea nitrogen [Mass/Vol] 14 mg/dL Normal 5-27 [facility] Comment on above: Performed By: #### C BCA, BMP, 3040-3, LIVR #### [facility] ([id number]) [address], [address] [place] [address] CBC AND AUTO DIFFon 04-17-19 24 ABSOLUTE BASOPHIL 0.1 X10E9/L Normal 0.0-0.2 [facility] Comment on above: Performed By: #### C MARIA ISABEL BMP, 3039-3, LIVR #### [facility] ([id number]) [address] [place] [address] ABSOLUTE NEUTROPHIL 9.3 X10E9/L High 1.5-6.6 [facility] Comment on above: Performed By: #### C DARREN NICOLAS, 3039-04, LIVR #### [facility] ([id number]) [address] [place] [address] Basophils/100 WBC (Bld) 0.6 % Normal [facility] Comment on above: Performed By: #### Racheal NICOLAS BMP, 3039-04, LIVR #### [facility] ([id number]) [address] [place] [address] Eosinophils (Bld) [#/Vol] 0.1 10*3/uL Normal 0.0-0.4 [facility] Comment on above: Performed By: #### C MARIA ISABEL BMP, 3039-3, LIVR #### [facility] ([id number]) [address] [place] [address] Eosinophils/100 WBC (Bld) 1.1 % Normal [facility] Comment on above: Performed By: #### C MARIA ISABEL BMP, 0-3, LIVR #### [facility] ([id number]) [address] [place] [address] Erythrocyte distribution width (RBC) [Ratio] 13.2 % Normal 11.5-15.0 [facility] Comment on above: Performed By: #### C BCA, BMP, 3039-3, LIVR #### [facility] ([id number]) [address] [address] [place] [address] Hematocrit (Bld) [Volume fraction] 42.9 % Normal 39-49 [facility] Comment on above: Performed By: #### C MARIA ISABEL, BMP, 0-3, LIVR #### [facility] ([id number]) [address], [facility] [address] [place] [address] Hemoglobin (Bld) [Mass/Vol] 14.6 g/dL Normal 13.0-17.0 [facility] Comment on above: Performed By: #### C MARIA ISABEL, BMP, 3039-, LIVR #### [facility] ([id number]) [address] [address] [place] [address] Lymphocytes (Bld) [#/Vol] 1.5 10*3/uL Normal 1.0-3.5 [facility] Comment on above: Performed By: #### C MARIA ISABEL, BMP, 3039-3, LIVR #### [facility] ([id number]) [address] [address] Lymphocytes/100 WBC (Bld) 12.3 % Normal [facility] Comment on above: Performed By: #### C MARIA ISABEL BMP, 3039-3, LIVR #### [facility] ([id number]) [address], [facility] [address] [place] [address] MCH (RBC) [Entitic mass] 29.7 pg Normal 27-34 [facility] Comment on above: Performed By: #### C BCA, BMP, 0-3, LIVR #### [facility] ([id number]) [address] [place] [address] MCHC (RBC) [Mass/Vol] 34.0 g/dL Normal 32-36 [facility] Comment on above: Performed By: #### C BCA, BMP, 3040-3, LIVR #### [facility] ([id number]) [address], [address] [place] [address] MCV (RBC) [Entitic vol] 87 fL Normal 80-100 [facility] Comment on above: Performed By: #### C BCA, BMP, 3040-3, LIVR #### [facility] ([id number]) [address], [address] [place] [address] Monocytes (Bld) [#/Vol] 1.0 10*3/uL High 0-0.9 [facility] Comment on above: Performed By: #### C MARIA ISABEL, BMP, 3040-3, LIVR #### [facility] ([id number]) [address], [address] [place] [address] Monocytes/100 WBC (Bld) 8.6 % Normal [facility] Comment on above: Performed By: #### C BCA, BMP, 3040-3, LIVR #### [facility] ([id number]) [address], [address] [place] [address] Neutrophils/100 WBC (Bld) 77.4 % Normal [facility] Comment on above: Performed By: #### C BCA, BMP, 3040-3, LIVR #### [facility] ([id number]) [address], [address] [place] [address] Platelet mean volume (Bld) [Entitic vol] 7.3 fL Normal 7-12 [facility] Comment on above: Performed By: #### C BCA, BMP, 3040-3, LIVR #### [facility] ([id number]) [address] [place] [address] Platelets (Bld) [#/Vol] 472 10*3/uL High 150-450 [facility] Comment on above: Performed By: #### C BCA, BMP, 3040-3, LIVR #### [facility] ([id number]) [address], [address] [place] [address] RBC COUNT 4.90 X10E12/L Normal 4.10-5.70 [facility] Comment on above: Performed By: #### C MARIA ISABEL, DARREN, 0-3, LIVR #### [facility] ([id number]) [address], [address] [place] [address] WBC (Bld) [#/Vol] 12.0 10*3/uL High 4.0-11.0 [facility] Comment on above: Performed By: #### C MARIA ISABEL, [facility], 3039-3, LIVR #### [facility] ([id number]) [address] [place] [address] Glucose Glucometer (BldC) [M ass/Vol]on 04-17-2023 Glucose [Mass/Vol] 159 mg/dL High 65-99 [facility] Glucose [Mass/Vol] 266 mg/dL High 65-99 [facility] Glucose [Mass/Vol] 406 mg/dL Critically high 65-99 [facility] Glucose [Mass/Vol] 205 mg/dL High 65-99 [facility] HGB A1C (GLYCO-HGB)on 2023 Glucose [Mass/Vol] 177 mg/dL Normal [facility] Comment on above: Performed By: #### C MARIA ISABEL, [facility], 0-3, LIVR #### [facility] ([id number]) [address] [place] [address] HbA1c (Bld) [Mass fraction] 7.8 % High 4.4-5.6 [facility] Comment on above: Result Comment: NOTE ADA Guidelines Result HgbA1c Normal : less than 5.7 % Prediabetes : 5.7 % to 6.4 % Diabetes : > 6.4 % Use with caution in patients with abnormal hemoglobin variants as the half-life of red blood cells and in vivo glycation rates are affected. Performed By: #### C BCA, BMP, 3040-3, LIVR #### [facility] ([id number]) [address] [place] [address] BASIC METABOLIC PANLon 04-16 Anion gap [Moles/Vol] 9 mmol/L Normal 5-15 [facility] Comment on above: Performed By: #### C BCA, BMP, 3040-3, LIVR #### [facility] ([id number]) [address] [place] [address] Calcium [Mass/Vol] 9.8 mg/dL Normal 8.5-10.5 [facility] Comment on above: Performed By: #### C BCA, BMP, 3040-3, LIVR #### [facility] ([id number]) [address] [place] [address] Chloride [Moles/Vol] 101 mmol/L Normal 98-109 [facility] Comment on above: Performed By: #### C BCA, BMP, 3040-3, LIVR #### [facility] ([id number]) [address] [place] [address] CO2 [Moles/Vol] 27 mmol/L Normal 22-32 [facility] Comment on above: Performed By: #### C BCA, BMP, 3040-3, LIVR #### [facility] ([id number]) [address] [place] [address] Creatinine [Mass/Vol] 0.84 mg/dL Normal 0.60-1.30 [facility] Comment on above: Result Comment: METH OD TRACEABLE TO IDMS STANDARD Performed By: #### C BCA, BMP, 3040-3, LIVR #### [facility] ([id number]) [address] [place] [address] eGFR (CKD-EPI) NON-RACE DEPENDENT >90 Normal >59 [facility] Comment on above: Result Comment: Reported eGFR is based on the CKD-EPI 2020 equation that does not use a race coefficient. Performed By: #### C DARREN NICOLAS, 3040-3, LIVR #### [facility] ([id number]) [address], [facility] [address] [place] [address] Glucose [Mass/Vol] 247 mg/dL High 65-99 [facility] Comment on above: Performed By: #### C DARREN NICOLAS, 3040-3, LIVR #### [facility] ([id number]) [address] [address] Potassium [Moles/Vol] 4.5 mmol/L Normal 3.5-5.0 [facility] Comment on above: Result Comment: SPEC IMEN HEMOLYZED, RESULTS INCREASED MODERATELY HEMOLYZED Performed By: #### C MARIA ISABEL BMP, 3040-3, LIVR #### [facility] ([id number]) [address] [address] Sodium [Moles/Vol] 137 mmol/L Normal 134-146 [facility] Comment on above: Performed By: #### C MARIA ISABEL BMP, 3040-3, LIVR #### [facility] ([id number]) [address] [address] Urea nitrogen [Mass/Vol] 20 mg/dL Normal 5-27 [facility] Comment on above: Performed By: #### C MARIA ISABEL BMP, 3040-3, LIVR #### [facility] ([id number]) [address] [address] CBC AND AUTO DIFFon 04-16-19 24 ABSOLUTE BASOPHIL 0.1 X10E9/L Normal 0.0-0.2 [facility] Comment on above: Performed By: #### C MARIA ISABEL BMP, 3039-3, LIVR #### [facility] ([id number]) [address] [place] [address] ABSOLUTE NEUTROPHIL 12.6 X10E9/L High 1.5-6.6 [facility] Comment on above: Performed By: #### C MARIA ISABEL, BMP, 3039-3, LIVR #### [facility] ([id number]) [address] [place] [address] Basophils/100 WBC (Bld) 0.4 % Normal [facility] Comment on above: Performed By: #### C MARIA ISABEL, BMP, 3039-, LIVR #### [facility] ([id number]) [address], [address] [place] [address] Eosinophils (Bld) [#/Vol] 0.1 10*3/uL Normal 0.0-0.4 [facility] Comment on above: Performed By: #### C MARIA ISABEL, BMP, 3039-3, LIVR #### [facility] ([id number]) [address], [address] [place] [address] Eosinophils/100 WBC (Bld) 0.5 % Normal [facility] Comment on above: Performed By: #### C MARIA ISABEL, BMP, 3039-3, LIVR #### [facility] ([id number]) [address] [place] [address] Erythrocyte distribution width (RBC) [Ratio] 13.4 % Normal 11.5-15.0 [facility] Comment on above: Performed By: #### C MARIA ISABEL, BMP, 3039-3, LIVR #### [facility] ([id number]) [address], [address] [place] [address] Hematocrit (Bld) [Volume fraction] 45.3 % Normal 39-49 [facility] Comment on above: Performed By: #### C BCA, BMP, 3040-3, LIVR #### [facility] ([id number]) [address], [address] [place] [address] Hemoglobin (Bld) [Mass/Vol] 15.2 g/dL Normal 13.0-17.0 [facility] Comment on above: Performed By: #### C MARIA ISABEL, BMP, 3039-3, LIVR #### [facility] ([id number]) [address], [facility] [address] [place] [address] Lymphocytes (Bld) [#/Vol] 1.1 10*3/uL Normal 1.0-3.5 [facility] Comment on above: Performed By: #### C MARIA ISABEL BMP, 3039-04, LIVR #### [facility] ([id number]) [address], [facility] [address] [place] [address] Lymphocytes/100 WBC (Bld) 7.5 % Normal [place] [facility] Comment on above: Performed By: #### C MARIA ISABEL, BMP, 3, LIVR #### [facility] ([id number]) [address], [facility] [address] [place] [address] MCH (RBC) [Entitic mass] 29.4 pg Normal 27-34 [facility] Comment on above: Performed By: #### C MARIA ISABEL BMP, 3039-3, LIVR #### [facility] ([id number]) [address], [address] [place] [address] MCHC (RBC) [Mass/Vol] 33.5 g/dL Normal 32-36 [facility] Comment on above: Performed By: #### C MARIA ISABEL, BMP, 0-3, LIVR #### [facility] ([id number]) [address], [address] [place] [address] MCV (RBC) [Entitic vol] 88 fL Normal 80-100 [facility] Comment on above: Performed By: #### C BCA, BMP, 0-3, LIVR #### [facility] ([id number]) [address], [address] [place] [address] Monocytes (Bld) [#/Vol] 1.0 10*3/uL High 0-0.9 [facility] Comment on above: Performed By: #### C BCA, BMP, 3040-3, LIVR #### [facility] ([id number]) [address], [address] [place] [address] Monocytes/100 WBC (Bld) 6.9 % Normal [facility] Comment on above: Performed By: #### C BCA, BMP, 3040-3, LIVR #### [facility] ([id number]) [address], [address] [place] [address] Neutrophils/100 WBC (Bld) 84.7 % Normal [facility] Comment on above: Performed By: #### C BCA, BMP, 3040-3, LIVR #### [facility] ([id number]) [address], [address] [place] [address] Platelet mean volume (Bld) [Entitic vol] 7.2 fL Normal 7-12 [facility] Comment on above: Performed By: #### C BCA, BMP, 3040-3, LIVR #### [facility] ([id number]) [address], [address] [place] [address] Platelets (Bld) [#/Vol] 501 10*3/uL High 150-450 [facility] Comment on above: Performed By: #### C BCA, BMP, 3040-3, LIVR #### [facility] ([id number]) [address], [address] [place] [address] RBC COUNT 5.18 X10E12/L Normal 4.10-5.70 [facility] Comment on above: Performed By: #### C BCA, BMP, 3040-3, LIVR #### [facility] ([id number]) [address], [address] [place] [address] WBC (Bld) [#/Vol] 14.8 10*3/uL High 4.0-11.0 [facility] Comment on above: Performed By: #### C BCA, BMP, 3040-3, LIVR #### [facility] ([id number]) [address], [address] [place] [address] CT ABDOMEN AND PELVIS W CONT on [...] Callaway MD on 04/16/2023 4:47 PM Normal [facility] CT BRAIN WO CONTon CT [...] Susie Sam on 04/16/2023 4:15 PM Normal [facility] Glucose Glucometer (BldC) [M ass/Vol]on 04-16-2023 Glucose [Mass/Vol] 121 mg/dL High 65-99 [facility] LIPASEon 04-16-2023 Lipase [Catalytic activity/Vol] 60 U/L Normal 11-82 [facility] Comment on above: Performed By: #### C BCA, BMP, 3040-3, LIVR #### [facility] ([id number]) [address], [address] [place] [address] LIVER PANELon 04-16-2023 Albumin [Mass/Vol] 4.2 g/dL Normal 3.2-5.3 [facility] Comment on above: Performed By: #### C MARIA ISABEL BMP, 3040-3, LIVR #### [facility] ([id number]) [address], [address] [place] [address] ALP [Catalytic activity/Vol] 93 U/L Normal 39-130 [facility] Comment on above: Performed By: #### C BCA, BMP, 3040-3, LIVR #### [facility] ([id number]) [address], [address] [place] [address] ALT [Catalytic activity/Vol] 19 U/L Normal 0-40 [facility] Comment on above: Performed By: #### C BCA, BMP, 3040-3, LIVR #### [facility] ([id number]) [address], [address] [place] [address] AST [Catalytic activity/Vol] 17 U/L Normal 0-41 [facility] Comment on above: Performed By: #### C MARIA ISABEL, BMP, 3040-3, LIVR #### [facility] ([id number]) [address], [address] [place] [address] Bilirubin [Mass/Vol] 0.8 mg/dL Normal 0.3-1.2 [facility] Comment on above: Performed By: #### C BCA, BMP, 3040-3, LIVR #### [facility] ([id number]) [address], [address] [place] [address] Bilirubin.direct [Mass/Vol] 0.1 mg/dL Normal 0.0-0.4 [facility] Comment on above: Result Comment: SPEC IMEN HEMOLYZED, RESULTS DECREASED MODERATELY HEMOLYZED Performed By: #### C BCA, BMP, 3040-3, LIVR #### [facility] ([id number]) [address], [address] [place] [address] Protein [Mass/Vol] 7.4 g/dL Normal 6.0-8.0 [facility] Comment on above: Performed By: #### C BCA, BMP, 3040-3, LIVR #### [facility] ([id number]) [address] [facility] [place] [address] URN MACROSCOPIC NURon 2023 BILIRUBIN CEDRIC Negative Normal NEG [facility] Comment on above: Performed By: #### N UM #### [facility] ([id number]) [address] [place] [address] BLOOD/HGB CEDRIC Small Abnormal NEG [facility] Comment on above: Performed By: #### N UM #### [facility] ([id number]) [address] [place] [address] GLUCOSE CEDRIC 500 mg/dL Abnormal NEG [facility] Comment on above: Performed By: #### N UM #### [facility] ([id number]) [address] [place] [address] KETONES CEDRIC Negative Normal NEG [facility] Comment on above: Performed By: #### N UM #### [facility] ([id number]) [address] [place] [address] LEUKOCYTE ESTERASE CEDRIC Trace Abnormal NEG [facility] Comment on above: Performed By: #### N UM #### [facility] ([id number]) [address] [place] [address] NITRITE CEDRIC Negative Normal NEG [facility] Comment on above: Performed By: #### N UM #### [facility] ([id number]) [address] [place] [address] PH CEDRIC 5.5 Normal 5.0-8.5 [facility] Comment on above: Performed By: #### N UM #### [facility] ([id number]) [address] [place] [address] PROTEIN CEDRIC Negative Normal NEG [facility] Comment on above: Performed By: #### N UM #### [facility] ([id number]) [address] [place] [address] SPECIFIC GRAVITY CEDRIC 1.015 Normal 1.003-1.035 [facility] Comment on above: Performed By: #### N UM #### [facility] ([id number]) [address] [place] [address] UROBILINOGEN CEDRIC 0.2 eu/dL Normal <1.1 [facility] Comment on above: Performed By: #### N UM #### [facility] ([id number]) [address] [place] [address] Urine collection deviceon ER EXTRA URINES ER EXTRA URINE ORDER IN PROCESS Normal [facility] XR CHEST 2 VWSon 04-16-2023 [...] Sawyer MD on 04/16/2023 7:09 PM Normal [facility] Basic Metabolic Profon 01-18 Anion gap [Moles/Vol] 17 mmol/L Normal - [facility] Comment on above: Performed By: #### B #### [facility] [address] [place], [place] [address] Records Manager: Norberto Condon MD Calcium [Mass/Vol] 9.7 mg/dL Normal 8.6-10.4 [facility] Comment on above: Performed By: #### B MP #### [facility] [address] [place] [address] Records Manager: Norberto Condon MD Chloride [Moles/Vol] 100 mmol/L Normal 98-107 [facility] Comment on above: Performed By: #### B MP #### [facility] [address] [place] [address] Records Manager: Norberto Condon MD CO2 [Moles/Vol] 19 mmol/L Low 20-31 [facility] Comment on above: Performed By: #### B MP #### [address] [address] Records Manager: Norberto Condon MD Creatinine [Mass/Vol] 1.0 mg/dL Normal 0.7-1.2 [facility] Comment on above: Performed By: #### B MP #### [address] [address] Records Manager: Norberto Condon MD GFR/1.73 sq M.predicted among non-blacks MDRD (S/P/Bld) [Vol rate/Area] mL/min/{1.73_m2} Normal >60 [facility] Comment on above: Result Comment: These [...] secretion. Performed By: #### B MP #### [address] [address] Records Manager: Norberto Condon MD Glucose [Mass/Vol] 188 mg/dL High 70-99 [facility] Comment on above: Performed By: #### B MP #### [address] [address] Records Manager: Norberto Condon MD Potassium [Moles/Vol] 4.6 mmol/L Normal 3.7-5.3 [facility] Comment on above: Performed By: #### B MP #### [address] [address] Records Manager: Norberto Condon MD Sodium [Moles/Vol] 136 mmol/L Normal 135-144 [facility] Comment on above: Performed By: #### B MP #### [facility] [employer] [address] [place] [address] Records Manager: Norberto Condon MD Urea nitrogen [Mass/Vol] 20 mg/dL Normal 8-23 [facility] Comment on above: Performed By: #### B MP #### [address] [address] Records Manager: Norberto Condon MD Clinical Supporton 3 Clinical Support [id number] Susie Boyce 1950 M Date Provider Department Center 10/26/2022 PAT VASQUES OT [facility] No family history on file Normal [facility] Comp Metabol,Fastingon 10-04 Albumin [Mass/Vol] 4.5 g/dL Normal 3.5-5.2 [facility] Comment on above: Performed By: #### L IPR, CMPF #### [address] [address] Records Manager: Norberto Condon MD Albumin/Glob Ratio 1.7 Normal 1.0-2.5 [facility] Comment on above: Performed By: #### L IPR, CMPF #### [facility] [employer] [address] [place] [address] Records Manager: Norberto Condon MD Alkaline Phos 69 U/L Normal 40-129 [facility] Comment on above: Performed By: #### L IPR, CMPF #### [address] [address] Records Manager: Norbreto Condon MD ALT [Catalytic activity/Vol] 15 U/L Normal 5-41 [facility] Comment on above: Performed By: #### L IPR, CMPF #### [facility] [employer] [address] [place] [address] Records Manager: Norberto Condon MD AST [Catalytic activity/Vol] 13 U/L Normal <40 [facility] Comment on above: Performed By: #### L IPR, CMPF #### [facility] [employer] [address] [place] [address] Records Manager: Norberto Condon MD Bilirubin [Mass/Vol] 0.4 mg/dL Normal 0.3-1.2 [facility] Comment on above: Performed By: #### L IPR CMPF #### [address] [address] Records Manager: Norberto Condon MD Protein [Mass/Vol] 7.2 g/dL Normal 6.4-8.3 [facility] Comment on above: Performed By: #### L IPR CMPF #### [facility] [employer] [address] [place] [address] Records Manager: Norberto Condon MD Anion gap [Moles/Vol] 19 mmol/L High 9-17 [facility] Comment on above: Performed By: #### L IPR, CMPF #### [facility] [employer] [address] [place] [address] Records Manager: Norberto Condon MD Calcium [Mass/Vol] 9.8 mg/dL Normal 8.6-10.4 [facility] Comment on above: Performed By: #### L IPR, CMPF #### [address] [address] Records Manager: Norberto Condon MD Chloride [Moles/Vol] 101 mmol/L Normal 98-107 [facility] Comment on above: Performed By: #### L IPR, CMPF #### [facility] [address] [place] [address] Records Manager: Norberto Condon MD CO2 [Moles/Vol] 19 mmol/L Low 20-31 [facility] Comment on above: Performed By: #### L IPR, CMPF #### [facility] [employer] [address] [place] [address] Records Manager: Norberto Condon MD Creatinine [Mass/Vol] 1.0 mg/dL Normal 0.7-1.2 [facility] Comment on above: Performed By: #### L IPR, CMPF #### [address] [address] Records Manager: Norberto Condon MD GFR/1.73 sq M.predicted among non-blacks MDRD (S/P/Bld) [Vol rate/Area] mL/min/{1.73_m2} Normal >60 [facility] Comment on above: Result Comment: These [...] Performed By: #### L IPR, CMPF #### [address] [address] Records Manager: Norberto Condon MD Glucose [Mass/Vol] 138 mg/dL High 70-99 [facility] Comment on above: Performed By: #### L IPR, CMPF #### [facility] [address] [place] [address] Records Manager: Norebrto Condon MD Potassium [Moles/Vol] 4.9 mmol/L Normal 3.7-5.3 [facility] Comment on above: Performed By: #### L IPR, CMPF #### [address] [employer] [address] [place] [address] Records Manager: Norberto Condon MD Sodium [Moles/Vol] 139 mmol/L Normal 135-144 [facility] Comment on above: Performed By: #### L IPR, CMPF #### [address] [employer] [address] [place] [address] Records Manager: Norberto Condon MD Urea nitrogen [Mass/Vol] 26 mg/dL High 8-23 [facility] Comment on above: Performed By: #### L IPR, CMPF #### [address] [employer] [address] [place] [address] Records Manager: Norberto Condon MD Lipid Profileon 10-04-2022 Cholesterol [Mass/Vol] 125 mg/dL Normal <200 [facility] Comment on above: Result Comment: Cholesterol Guidelines: <200 Desirable 200-240 Borderline >240 Undesirable Performed By: #### L IPR, CMPF #### [facility] [address] [place] [address] Records Manager: Norberto Condon MD Cholesterol in HDL [Mass/Vol] 43 mg/dL Normal >40 [facility] Comment on above: Result Comment: HDL Guidelines: <40 Undesirable 40-59 Borderline >59 Desirable Performed By: #### L IPR, CMPF #### [address] [employer] [address] [place] [address] Records Manager: Norberto Condon MD Cholesterol in LDL [Mass/Vol] 66 mg/dL Normal 0-130 [facility] Comment on above: Result Comment: LDL Guidelines: <100 Desirable 100-129 Near to/above Desirable 130-159 Borderline >159 Undesirable Direct (measured) LDL and calculated LDL are not interchangeable tests. Performed By: #### L STAR, [facility] #### [address] [employer] [facility] [place], [place] [id number] Records Manager: oNrberto Condon MD Cholesterol.total/Ch olesterol in HDL [Mass ratio] 2.9 {ratio} Normal <5 [facility] Comment on above: Performed By: #### L STAR, CMPF #### [address] [employer] [address] [place], [place] [id number] Records Manager: Norberto Condon MD Triglyceride [Mass/Vol] 80 mg/dL Normal <150 [facility] Comment on above: Result Comment: Triglyceride Guidelines: <150 Desirable 150-199 Borderline 200-499 High >499 Very high Based on AHA Guidelines for fasting triglyceride, November 2011. Performed By: #### L STAR, [facility] #### [address] [employer] [address] [place] [address] Records Manager: Norberto Condon MD MRI BRAIN W WO [...] Bertin David MD 09/13/22 Final result Normal [facility] Creatinine w/GFRon 3 Creatinine [Mass/Vol] 0.8 mg/dL Normal 0.7-1.2 [facility] Comment on above: Performed By: #### C REG #### [facility] [address] [place], [place] [id number] Records Manager: Derrek Godinez MD GFR/1.73 sq M.predicted among non-blacks MDRD (S/P/Bld) [Vol rate/Area] mL/min/{1.73_m2} Normal >60 [facility] Comment on above: Result Comment: These [...] secretion. Performed By: #### C REG #### [facility] [address] [place], [place] [id number] Records Manager: Derrek Godinez MD B12/Folate Panelon 3 Cobalamin (Vitamin B12) [Mass/Vol] 392 pg/mL Normal 232-1245 [facility] Comment on above: Performed By: #### B 12FOL #### [facility] [address] [place] [address] Records Manager: Norberto Condon MD Folic Acid 13.6 ng/mL Normal >4.8 [facility] Comment on above: Performed By: #### B 12FOL #### [address] [employer] [facility] [address] [place] [address] Records Manager: Norberto Condon MD Vitamin B12 & Folateon 08-11 Cobalamin (Vitamin B12) [Mass/Vol] 392 pg/mL 232 - 1245 pg/mL [facility] Folate [Mass/Vol] 13.6 ng/mL 4.8 - PINF ng/mL [facility] MRI CERVICAL SPINE WO CONTRA [...] Fazal Rodas DO 01/03/22 Final result Normal [facility] Multilevel cervical spondylosis resulting in upwards of moderate canal stenosis at C6-7. Varying levels of foraminal stenosis, severe on the left at C6-7. [facility] EXAMINATION: MRI OF THE CERVICAL SPINE [...] spinal canal stenosis or neural foraminal narrowing. [facility] Fazal Rodas DO - 01/03/2022 EXAMINATION: [...] stenosis, severe on the left at C6-7. [employer] Phone: MRI CERVICAL SPINE WO CONTRA STOrdered By: Fazal Rodas on 01-03-2022 [employer] Phone: MRI CERVICAL SPINE WO CONTRA STon 01-01-2022 Radiology Study observation (narrative) [employer] Phone: XR CERVICAL SPINE (2-3 VIEWS )on 10-30-2021 No acute osseous abnormality. Multilevel degenerative change. [facility] EXAMINATION: XRAY VIEWS OF THE CERVICAL SPINE 10/30/2021 8:51 am COMPARISON: None. 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 No acute osseous abnormality. Moderate degenerative change throughout most significant C4-5 C5-6 with loss of disc height endplate spondylosis. Prevertebral soft tissues unremarkable. [facility] Doroteo Mcmillan DO - 10/30/2021 EXAMINATION: XRAY VIEWS OF THE CERVICAL SPINE 10/30/2021 8:51 am COMPARISON: None. 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 No acute osseous abnormality. Moderate degenerative change throughout most significant C4-5 C5-6 with loss of disc height endplate spondylosis. Prevertebral soft tissues unremarkable. IMPRESSION: No acute osseous abnormality. Multilevel degenerative change. [employer] Work Phone: Radiology Study observation (narrative) [employer] Work Phone: XR CERVICAL SPINE (2-3 VIEWS )Ordered By: Doroteo Mcmillan on 10-30-2021 [employer] Work Phone: Comprehensive Metabolic Pane l, Fastingon 10-29-2021 Albumin [Mass/Vol] 4.4 g/dL 3.5 - 5.2 g/dL [employer] Albumin/Globulin [Mass ratio] 1.6 {ratio} 1 - 2.5 [employer] ALP (Bld) [Catalytic activity/Vol] 67 U/L 40 - 129 U/L [employer] ALT [Catalytic activity/Vol] 20 U/L 5 - 41 U/L [employer] Anion gap [Moles/Vol] 15 mmol/L 9 - 17 mmol/L [employer] AST [Catalytic activity/Vol] 14 U/L NINF - 40 U/L [employer] Bilirubin [Mass/Vol] 0.6 mg/dL 0.3 - 1 .2 mg/dL [employer] Calcium [Mass/Vol] 9.4 mg/dL 8.6 - 10. 4 mg/dL [facility] Chloride [Moles/Vol] 103 mmol/L 98 - 10 7 mmol/L [facility] CO2 [Moles/Vol] 23 mmol/L 20 - 31 mmol/L [facility] Creatinine [Mass/Vol] 0.79 mg/dL 0.7 - 1.2 mg/dL [employer] Free PSA/Total PSA [Mass fraction] 7.2 g/dL 6.4 - 8.3 g/dL [employer] GFR >60 60 - PI NF mL/min [employer] GFR Non- >60 60 - PINF mL/min [employer] GFR/1.73 sq M.predicted MDRD (S/P/Bld) [Vol rate/Area] [facility] [employer] Comment on above: Average GFR for 70 o r more years old: 75 mL/min/1.73sq m Chronic Kidney Disease: <60 mL/min/1.73sq m Kidney failure: <15 mL/min/1.73sq m eGFR calculated using average adult body mass. Additional eGFR calculator available at: http://www.WALTOP/multiple_crcl_2012.htm Glucose [Mass/Vol] 139 mg/dL High 70 - 99 mg/dL [facility] [employer] Interpretation and review of laboratory results Abnormal [facility] [employer] Potassium [Moles/Vol] 4.6 mmol/L 3.7 - 5.3 mmol/L [facility] Sodium [Moles/Vol] 141 mmol/L 135 - 144 mmol/L [facility] Urea nitrogen (BldV) [Mass/Vol] 20 mg/dL 8 - 23 mg/dL [facility] Lipid Panelon 10-29-2021 Cholesterol [Mass/Vol] 160 mg/dL NINF - 200 mg/dL [facility] Comment on above: Cholesterol Guidelines: <200 Desirable 200-240 Borderline >240 Undesirable Cholesterol in HDL [Mass/Vol] 41 mg/dL 40 - PINF mg/dL [facility] Comment on above: HDL Guidelines: <40 Undesirable 40-59 Borderline >59 Desirable Cholesterol in LDL [Mass/Vol] 95 mg/dL 0 - 130 mg/dL [facility] Comment on above: LDL Guidelines: <100 Desirable 100-129 Near to/above Desirable 130-159 Borderline >159 Undesirable Direct (measured) LDL and calculated LDL are not interchangeable tests. Cholesterol.total/Ch olesterol in HDL [Mass ratio] 3.9 {ratio} NINF - 5 [facility] Triglyceride [Mass/Vol] 118 mg/dL NINF - 150 mg/dL [facility] Comment on above: Triglyceride Guidelines: <150 Desirable 150-199 Borderline 200-499 High >499 Very high Based on AHA Guidelines for fasting triglyceride, November 2011. No Panel Informationon 10-29 [facility] TSH With Reflex Ft4on 2021 TSH Qn 1.88 m[IU]/L [facility] Vitamin B12on 10-29-2021 Cobalamin (Vitamin B12) [Mass/Vol] 192 pg/mL Low 232 - 1245 pg/mL [facility] Interpretation and review of laboratory results Abnormal [facility] Vital Signs Date Time Vital Sign Value Performing Clinician Facility 02-10-2024 17:43-0500 Body mass index (BMI) [Ratio] 26.91 kg/m2 Javad Furlong DO Work Phone: [facility] 02-10-2024 17:43-0500 Body weight 77.93 kg Javad Furlong DO Work Phone: [facility] 01-27-2024 14:35-0500 Body mass index (BMI) [Ratio] 27.6 kg/m2 Javad Furlong DO Work Phone: [facility] 01-27-2024 14:35-0500 Body temperature 96.91 [degF] Javad Furlong DO Work Phone: [facility] 01-27-2024 14:35-0500 Body weight 79.92 kg Javad Furlong DO Work Phone: [facility] 01-27-2024 14:35-0500 Diastolic blood pressure 68 mm[Hg] Javad Furlong DO Work Phone: [facility] 01-27-2024 14:35-0500 Heart rate 66 /min Javad Furlong DO Work Phone: [facility] 01-27-2024 14:35-0500 Respiratory rate 18 /min Javad Furlong DO Work Phone: [facility] 01-27-2024 14:35-0500 SaO2% (BldA) [Mass fraction] 95 % Javad Furlong DO Work Phone: [facility] 01-27-2024 14:35-0500 Systolic blood pressure 126 mm[Hg] [facility]avad Furlong DO [facility] 12-23-2023 15:54-0400 Body mass index (BMI) [Ratio] 27.06 kg/m2 Javad Furlong DO [facility] Phone[facility] 12-23-2023 15:54-0400 Body temperature 97.9 [degF] Javad Furlong DO [facility] Phone[facility] 12-23-2023 15:54-0400 Body weight 78.38 kg Javad Furlong DO Work Phone[facility] 12-23-2023 15:54-0400 Diastolic blood pressure 76 mm[Hg] Javad Furlong DO Work Phone: [facility] 12-23-2023 15:54-0400 Heart rate 76 /min Javad Furlong DO Work Phone: [facility] 12-23-2023 15:54-0400 Respiratory rate 17 /min Javad Furlong DO Work Phone: [facility] [employer] 12-23-2023 15:54-0400 SaO2% (BldA) [Mass fraction] 97 % Javad Furlong DO Work Phone: [facility] 12-23-2023 15:54-0400 Systolic blood pressure 134 mm[Hg] Javad Furlong DO Work Phone: [facility] 06-17-2023 10:00-0400 Body temperature 96.8 [degF] Dena Silva MD Work Phone: [facility] [employer] 06-17-2023 10:00-0400 Diastolic blood pressure 69 mm[Hg] Dena Silva MD Work Phone: [facility] [employer] 06-17-2023 10:00-0400 Heart rate 75 /min Dena Silva MD Work Phone: [facility] 06-17-2023 10:00-0400 Respiratory rate 17 /min Dena Silva MD Work Phone: [facility] 06-17-2023 10:00-0400 SaO2% (BldA) [Mass fraction] 98 % Dena Silva MD Work Phone: [facility] 06-17-2023 10:00-0400 Systolic blood pressure 124 mm[Hg] Dena Silva MD Work Phone: [facility] 06-16-2023 12:03-0400 Body height 172.7 cm Dena Silva MD Work Phone: [facility] 06-16-2023 12:03-0400 Body mass index (BMI) [Ratio] 27.83 kg/m2 Dena Silva MD Work Phone: [facility] 06-16-2023 12:03-0400 Body weight 83.01 kg Dena Silva MD Work Phone: [facility] Encounters Encounter Date Encounter Type Care Provider Facility Start: 02-10-2024 End: 02-10-2024 ambulatory Javad Alegre [employer] Work Phone: [facility] Comment on above: Parkinson's disease without dyskinesia or fluctuating manifestations ([facility]-HCC) (Primary Dx); Anxiety; Depression, unspecified depression type Start: 01-27-2024 End: 01-27-2024 ambulatory Javad Alegre [employer] Work Phone: [facility] Comment on above: Late onset Alzheimer 's dementia with anxiety, unspecified dementia severity (CMS-HCC) (Primary Dx); Parkinson's disease without dyskinesia or fluctuating manifestations (CMS-HCC); Gastroesophageal reflux disease, unspecified whether esophagitis present; Hypotension, unspecified hypotension type; Primary hypertension Start: 12-23-2023 End: 12-23-2023 ambulatory Javad Alegre DO [facility] Phone: [facility] Comment on above: Late onset Alzheimer 's dementia with anxiety, unspecified dementia severity (CMS-HCC) (Primary Dx); Parkinson's disease without dyskinesia or fluctuating manifestations (CMS-HCC); Anxiety; Impaired gait; Contusion of scalp, subsequent encounter Start: 07-18-2023 End: 08-04-2023 Evaluation and management of inpatient DANDRESHASHI SWANSON [facility] Start: 06-17-2023 End: 06-19-2023 Evaluation and management of inpatient [facility] Stress Lab 2 [facility] Non-Invasive Cardiology Comment on above: Arrived Start: 06-16-2023 End: 06-17-2023 Evaluation and management of inpatient Dean Silva MD Work Phone: [facility] Med Surg Comment on above: Near syncope (Primar y Dx); Pre-syncope; Parkinson's disease without dyskinesia or fluctuating manifestations (HCC) Start: 04-27-2023 Telephone encounter Naila baldwin DO Work Phone: [facility] Medical Physician Sign In Start: 04-21-2023 End: 04-21-2023 ambulatory MARLENA PADGETT [facility] Start: 04-21-2023 End: 04-21-2023 ambulatory MAGALI SUAZO [facility] Start: 04-19-2023 End: 04-21-2023 ambulatory ANDRZEJ FINE [facility] Start: 04-18-2023 End: 04-21-2023 ambulatory ANILA SMITH [facility] Start: 04-16-2023 End: 04-21-2023 ambulatory HECTOR SU [facility] Start: 04-16-2023 End: 04-21-2023 Emergency department patient visit JASON WALDEN [facility] Start: 04-16-2023 End: 04-20-2023 ambulatory [facility] Start: 01-25-2023 [facility] Start: 01-18-2023 End: 01-19-2023 ambulatory [facility] Start: 10-26-2022 ambulatory [facility] Start: 10-07-2022 End: 10-10-2022 ambulatory [facility] Start: 10-04-2022 End: 10-05-2022 ambulatory [facility] Start: 09-07-2022 End: 09-10-2022 ambulatory [facility] Start: 09-07-2022 End: 09-09-2022 Subsequent hospital visit by physician Vale Evangelista MD Work Phone: [facility] MRI Comment on above: Cognitive impairment Start: 08-26-2022 End: 08-29-2022 ambulatory [facility] Start: 08-11-2022 End: 08-12-2022 [facility] Start: 08-11-2022 End: 08-11-2022 Subsequent hospital visit [...] Subsequent hospital visit by physician Nandini Rizzo BIOMEDICAL MANAGER [facility] Start: 01-01-2022 End: 01-04-2022 ambulatory [facility] Start: 01-01-2022 End: 01-03-2022 Subsequent hospital visit by physician Katherine Ochoa [facility] MRI Comment on above: Tremors of nervous s ystem; Cervical arthritis; Gait abnormality Start: 10-30-2021 End: 11-01-2021 Subsequent hospital visit by physician c [place] Xr Rm 1 [facility] Radiology Comment on above: Tremors of nervous s ystem Start: 10-29-2021 End: 10-29-2021 Subsequent hospital visit by physician Dandre Swanson MD Work Phone: [facility] lab Comment on above: Tremors of nervous [...] B12 & FOLATE Maira VAZQUEZ RN - CORONER/MEDICAL EXAMINER Work Phone: Start: 01-01-2022 Mri spinal canal [...] Screening for malign ant neoplasm of colon [facility] Start: 01-28-2028 Screening for malign ant neoplasm of colon [facility] [employer] Start: 01-26-2025 Adult BMI Screening Adult BMI Screen [facility] Start: 12-22-2024 Adult BMI Screening Adult BMI Screen [facility] Start: 12-22-2024 Tobacco Screening Tobacco Screening [facility] Start: 10-25-2024 Adult BMI Screening Adult BMI Screen ing [facility] Start: 08-04-2024 Tobacco Screening Tobacco Screening [facility] Start: 06-16-2024 GFR test (Diabetes, CKD 3-4, OR last GFR 15-59) GFR test (Diabetes, CKD 3-4, OR last GFR 15-59) [facility] Start: 05-18-2024 Hemoglobin A1c measurement A1C test (Diabetic or Prediabetic) [facility] Start: 04-20-2024 Adult BMI Screening Adult BMI Screen ing [facility] Start: 04-19-2024 Tobacco Screening Tobacco Screening [facility] Start: 03-31-2024 Depression Monitoring Depression Mon itoring [facility] Start: 01-13-2024 Influenza vaccination Flu vacc ine (Season Ended) [facility] Comment on above: Postponed from 09/28 (Patient Refused) Start: 10-30-2023 COVID-19 Vaccine ( season) COVID-19 Vaccine ( season) [facility] Start: 10-30-2023 COVID-19 Vaccine ( season) COVID-19 Vaccine ( season) [facility] Start: 10-30-2023 Influenza vaccination Influenza Vacc ine [facility] Start: 10-05-2023 Lipid panel Lipids [facility] Start: 09-09-2023 Annual Wellness Visi t (AWV) Annual Wellness Visit (AWV) [facility] Start: 09-09-2023 Depression Monitoring Depression Mon itoring [facility] Start: 09-09-2023 Hemoglobin A1c measurement A1C test (Diabetic or Prediabetic) [facility] Start: 09-08-2023 GFR test (Diabetes, CKD 3-4, OR last GFR 15-59) GFR test (Diabetes, CKD 3-4, OR last GFR 15-59) [facility] Start: 08-24-2023 End: 08-24-2023 Patient encounter procedure 08/24/2023 1:20 PM EDT Office Visit [facility] [address] [place], [place] [id number] [place] [address] [place], [place] [id number] 3 month DM f/u [facility] Comment on above: 3 month DM f/u Start: 08-11-2023 End: 08-11-2023 Patient encounter procedure 08/11/2023 11:40 AM EDT Office Visit [facility] Neurology Specialist [address] [facility] [address] [place] [phone] Vale Evangelista MD [address] [facility] [address] [place] [address] 4M PT Parkinsons [facility] Neurology Specialist Comment on above: 3M PT Parkinsons Start: 02-28-2023 Annual Wellness Visi t (Medicare Advantage) Annual Wellness Visit (Medicare Advantage) [facility] Start: 01-19-2023 Depression Monitoring Depression Mon itoring [facility] Start: 01-19-2023 Hemoglobin A1c measurement A1C test (Diabetic or Prediabetic) [facility] Start: 01-19-2023 Influenza vaccination B ON [facility] [place] [facility] Comment on above: Postponed from 09/28 (Patient Refused) Postponed from 09/28 (Patient Refused) Start: 01-19-2023 Urine screening for protein [facility] [employer] Start: 01-12-2023 End: 01-12-2023 Patient encounter procedure 01/12/2023 Office Visit [place] [address] [place] [address] [facility] Start: 12-13-2022 End: 12-13-2022 Patient encounter procedure 12/13/2022 Office Visit Neurology Vale Evangelista MD [address] [address] [facility] Neurology Specialist Start: 10-29-2022 COVID-19 Vaccine ( season) COVID-19 Vaccine ( season) [facility] Start: 10-29-2022 GFR test (Diabetes, CKD 3-4, OR last GFR 15-59) GFR test (Diabetes, CKD 3-4, OR last GFR 15-59) [facility] Start: 10-29-2022 Influenza vaccination Influenza Vacc ine [facility] Start: 10-29-2022 Lipid panel Lipids [facility] [employer] Start: 10-13-2022 Depression Monitoring Depression Mon itoring [facility] Start: 10-13-2022 Hemoglobin A1c measurement A1C test (Diabetic or Prediabetic) [facility] Start: 09-28-2022 Influenza vaccination Flu vaccine (# 1) [facility] Start: 09-08-2022 End: 09-08-2022 Patient encounter procedure 09/08/2022 Office Visit [place] [address] [address] [place] [address] [facility] Start: 08-12-2022 End: 08-12-2022 Patient encounter procedure 08/12/2022 Office Visit Neurology Vale Evangelista MD [address] [facility] [address] [id number] [facility] Neurology Specialist Start: 05-11-2022 End: 05-11-2022 Patient encounter procedure 05/11/2022 Office Visit Neurology Maira Morales, SAURABH - LOLITA [address] [facility] [address] [place] [address] [facility] Neurology Specialist Start: 02-24-2022 End: 02-24-2022 Patient encounter procedure 02/24/2022 Appointment Physical Therapy Kingston Quiles, PT [facility] Start: 02-17-2022 End: 02-17-2022 Patient encounter procedure 02/17/2022 Appointment Physical Therapy Kingston Quiles, PT [facility] Start: 02-15-2022 End: 02-15-2022 Patient encounter procedure 02/15/2022 Appointment Physical Therapy Prasanth Felipe BIOMEDICAL MANAGER [facility] Start: 02-10-2022 End: 02-10-2022 Patient encounter procedure 02/10/2022 Appointment Physical Therapy Prasanth Felipe BIOMEDICAL MANAGER [facility] Start: 02-08-2022 End: 02-08-2022 Patient encounter procedure 02/08/2022 Appointment Physical Therapy Kingston Quiles, PT [facility] Start: 01-19-2022 End: 01-19-2022 Patient encounter procedure 01/19/2022 Office Visit [place] [address] [address] [place] [address] [facility] Start: 01-14-2022 End: 01-14-2022 Patient encounter procedure 01/14/2022 Office Visit Neurology Maira Morales, SUPERVISORY FORESTER - CORONER/MEDICAL EXAMINER [address] [facility] [address] [place] [address] [facility] Neurology Specialist Start: 01-11-2022 End: 01-11-2022 Patient encounter procedure 01/11/2022 Office Visit Neurology Maira Morales SUPERVISORY FORESTER - CORONER/MEDICAL EXAMINER [address] [facility] [address] [place] [address] [facility] Neurology Specialist Start: 11-20-2021 Lipid panel Lipids [facility] Start: 11-04-2021 Diabetic foot examination Diabetic foot exam [facility] Start: 11-04-2021 Urine screening for protein [facility] Start: 10-29-2021 Influenza vaccination Flu vaccine (# 1) [facility] Start: 09-28-2021 Influenza vaccination Flu vaccine (# 1) [facility] Start: 06-30-2021 Annual Wellness Visi t (AWV) Annual Wellness Visit (AWV) [facility] Start: 04-26-2021 COVID-19 Vaccine (4 - Booster for Moderna series) COVID-19 Vaccine (4 - Booster for Moderna series) [facility] Start: 02-18-2021 COVID-19 Vaccine (4 - Booster for Moderna series) COVID-19 Vaccine (4 - Booster for Moderna series) [facility] Start: 02-18-2021 COVID-19 Vaccine (4 - Booster) COVID-19 Vaccine (4 - Booster) [facility] Start: 12-29-2019 Diabetic retinal exam Diabetic retin al exam [facility] Start: 12-29-2019 Glaucoma screening Diabetic retinal exam [facility] Start: 12-20-2019 Annual Wellness Visi t (AWV) Annual Wellness Visit (AWV) [facility] Start: 2014 Fall Risk Screening Fall Risk Screen ing [facility] Start: 2009 Respiratory Syncytia l Virus (RSV) or age 60 yrs+ (1 - 1-dose 60+ series) Respiratory Syncytial Virus (RSV) or age 60 yrs+ (1 - 1-dose 60+ series) [facility] Start: 1994 Screening for malign ant neoplasm of colon [facility] Start: 1968 DTaP,Tdap and Td Vaccines (1 - Tdap) DTaP,Tdap and Td Vaccines (1 - Tdap) [facility] Start: 1968 DTaP/Tdap/Td vaccine (1 - Tdap) DTaP/Tdap/Td vaccine (1 - Tdap) [facility] Start: 07-15-1967 Adult BMI Follow Up Plan Adult BMI Follow Up Plan [facility] Start: 07-15-1967 Diabetic foot examination Diabetic Foot Exam [facility] Start: 07-15-1967 Hepatitis C screening Hepatitis C sc reen [facility] Start: 1961 Depression Screening Depression Scre ening [facility] Start: 07-15-1955 Pneumococcal 65+ yea rs Vaccine (1 - PCV) Pneumococcal 65+ years Vaccine (1 - PCV) [facility] Start: 07-15-1955 Pneumococcal 65+ yea rs Vaccine (1 of 2 - PCV) Pneumococcal 65+ years Vaccine (1 of 2 - PCV) [facility] Start: 1949 Glaucoma screening Diabetic Op hthalmology Exam [facility] Start: 1949 Medicare Annual Wellness Visit Medicare Annual Wellness Visit [facility] End: 06-23-2023 Basic Metabolic Panel w/ Reflex to MG Basic Metabolic Panel w/ Reflex to MG Lab Routine Daily for 7 Days starting 06/17/2023 until 06/23/2023, 1 completed [facility] [employer] Comment on above: Daily for 7 Days sta rting 06/17/2023 until 06/23/2023, 1 completed End: 06-21-2023 CBC W Auto Differential panel - Blood CBC with Auto Differential Lab Routine Daily for 5 Days starting 06/17/2023 until 06/21/2023, 1 completed [facility] Comment on above: Daily for 5 Days sta rting 06/17/2023 until 06/21/2023, 1 completed Cortisol Total Cortisol Total L ab Routine 06/17/2023 10:15 AM EDT [facility] Work Phone: EKG 12 Lead EKG 12 Lead ECG Routine 06/16/2023 11:19 AM EDT [facility] Glucose [Mass/volume ] in Serum or Plasma [facility] Comment on above: 4X Daily (AC & HS) u ntil discontinued starting 06/16/2023 As Needed until disc ontinued starting 06/16/2023 End: 09-07-2022 MRI BRAIN W WO CONTRAST [employer] Comment on above: 1 Occurrences starti ng 09/07/2022 until 09/07/2022 End: 06-17-2023 Nasal Cannula Oxygen Nasal Cannula Oxygen Respiratory Care Routine As Needed until discontinued starting 06/17/2023 [facility] Comment on above: As Needed until disc ontinued starting 06/17/2023 Nuclear stress test with myocardial perfusion Nuclear stress test with myocardial perfusion CV Stress/NM Stress Routine Near syncope Pre-syncope 06/17/2023 2:02 PM EDT [facility] Oxygen therapy [[facility]] Initiate Oxygen Therapy Protocol Respiratory Care Routine As Needed until discontinued starting 06/16/2023 [facility] Work Phone: Comment on above: As Needed until disc ontinued starting 06/16/2023 Immunizations Immunization Date Immunization Notes Care Provider Gaby fountain 07-23-2021 zoster vaccine recombinant Nandini Rizzo PTA [facility] Work Phone: 05-12-2021 zoster vaccine recombinant Dandre Swanson MD Work Phone: [facility] 12-24-2020 COVID-19, MODERNA BL UE border, Primary or Immunocompromised, (age 12y+), IM, 100 mcg/0.5mL Dandre Swanson MD Work Phone: [facility] Work Phone: 05-22-2020 COVID-19, mRNA, LNP- S, PF, 100mcg/0.5mL Dose Naila Smith DO Work Phone: [facility] 05-22-2020 COVID-19, US Vaccine , Vaccine Unspecified Vale Evangelista MD Work Phone: [facility] 04-24-2020 COVID-19, mRNA, LNP- S, PF, 100mcg/0.5mL Dose Naila Smith DO Work Phone: [facility] 04-24-2020 COVID-19, US Vaccine , Vaccine Unspecified Vale Evangelista MD Work Phone: [facility] Payers Date Payer Category Payer Medicare [id number] 2022 Medicare [id number] 1.2.8 [id number] 2021 Medicare [id number] 1. [id number] 1949 Unknown [id number] 2.16.8 40.1.711236.3.579.2.177 1949 Unknown [id number] 2.16.8 40.1.814327.3.579.2.177 1949 Unknown [id number] 2.16.8 40.1.488131.3.579.2.177 1949 Unknown [id number] 2.16.8 40.1.209437.3.579.2.177 1949 Unknown [id number] 2.16.8 40.1.079817.3.579.2.1286 1949 Unknown [id number] 2.16.8 40.1.975777.3.579.2.1286 1949 Unknown [id number] 2.16.8 40.1.279772.3.579.2.1286 1949 Unknown [id number] 2.16.8 40.1.352393.3.579.2.1286 1949 Unknown [id number] 2.16.8 40.1.843531.3.579.2.1286 1949 Unknown [id number] 2.16.8 40.1.540786.3.579.2.1286 1949 Unknown [id number] 2.16.8 40.1.444804.3.579.2.1286 1949 Unknown [id number] 2.16.8 40.1.467078.3.579.2.1286 1949 Unknown [id number] 2.16.8 40.1.965355.3.579.2.1286 1949 Unknown [id number] 2.16.8 40.1.796142.3.579.2.1286 1949 Unknown [id number] 2.16.8 40.1.364870.3.579.2.1286 1949 Unknown [id number] 2.16.8 40.1.854991.3.579.2.1286 1949 Unknown [id number] 2.16. 840.1.743570.3.579.2.175 1949 Unknown [id number] 2.16. 840.1.717873.3.579.2.175 1949 Unknown [id number] 2.16. 840.1.813953.3.579.2.175 1949 Unknown [id number] 2.16.8 40.1.348470.3.579.2.176 1949 Unknown [id number] 2.16.8 40.1.477775.3.579.2.176 1949 Unknown [id number] 2.16.8 40.1.532129.3.579.2.176 Social History Date Type Detail Facility Start: 10-20-2017 End: 04-19-2023 Tobacco smoking status VAIS Ex-smoker [employer] Phone: Start: 05-03-1968 End: 05-04-2015 History of tobacco use Current smoker [employer] Phone: Start: 05-03-1968 End: 05-04-2015 History of tobacco use Cigarette Smoker [employer] Phone: Start: 10-20-2017 End: 04-10-2020 Cigarettes smoked current (pack per day) - Reported 1 [employer] Work Phone: Start: 10-20-2017 End: 04-19-2023 Tobacco use and exposure Smokeless tobacco non-user [employer] Phone: Start: 10-13-2021 End: 12-23-2023 Alcohol intake Current non-drinker of alcohol (finding) [employer] Phone: Start: 07-07-2021 History SDOH Financial 4 [employer] Phone: Start: 07-07-2021 End: 09-08-2022 History SDOH Food Worry 1 [employer] Phone: Start: 07-01-2020 End: 09-08-2022 History SDOH Transport Med 2 [employer] Phone: Start: 1950 Sex Assigned At Not on file B ON [email or web address] Phone: Start: 01-19-2022 End: 06-17-2023 Alcohol intake Current drinker of alcohol (finding) [employer] Phone: Start: 01-14-2022 Alcohol Comment socially [employer] Work Phone: Start: 01-04-2022 End: 01-14-2022 Exposure to SARS-CoV-2 (event) Not sure [facility] Start: 09-08-2022 History SDOH Physica l Activity DPW 3 [facility] Start: 09-08-2022 History SDOH Physica l Activity MPS 0 [facility] Start: 09-08-2022 History SDOH Financial 5 [facility] Start: 04-10-2020 End: 04-16-2023 [facility] Utilities [facility] Work Phone: Has the [employer], or [employer] threatened to shut off services in your home in past 12Mo No [employer] Work Phone: In the past 12 month s, has lack of transportation kept you from medical appointments or from getting medications? No Application [employer] [facility] [employer] Start: 05-03-2016 Alcohol Comment socially yearly [facility] How often to you hav e a drink containing alcohol? Never [facility] (I/We) worried wheth er (my/our) food would run out before (I/we) got money to buy more. Never true [facility] Start: 10-01-2014 Sex Male (finding) [facility] NEGATED: Highlighted rowStart: NINF History of tobacco use Passive smoker [facility] Work Phone: Medical Equipment Procedure Code Equipment Code Equipment Origin al Text Equipment Identifier Dates 1 strip by Other route 4 times daily Test 2 times a day & as needed for symptoms of irregular blood glucose. Dispense sufficient amount for indicated testing frequency plus additional to accommodate PRN testing needs. [id number] Start: 08-16-2019 1 each by In Vit ro route 4 times daily As needed. [id number] Start: 08-16-2019 USE DIRECTED [id number] Start: 09-03-2021 1 strip by Other route 4 times daily Test 2 times a day & as needed for symptoms of irregular blood glucose. Dispense sufficient amount for indicated testing frequency plus additional to accommodate PRN testing needs. [id number] Start: 06-22-2022 100 each by Does not apply route daily [id number] Start: 06-22-2022 Brng Tib 84wvv24 mm 0d Kn Ant - [id number] Start: 05-14-2016 Brng Tib 79/83mm x11mm 3d Std - [id number] Start: 10-22-2016 Cement Bn Palaco s Radpq 40g Rpl [id number] - [id number] Start: 05-14-2016 Cement Bn [employer] Radpq 40g Rpl [id number] - [id number] Start: 10-22-2016 Cmpt Ptlr Thn 34 mm 3 Pg Kn Ser - [id number] Start: 05-14-2016 Ty Tib 79mm Cocr Kn I Beam - [id number] Start: 10-22-2016 USE DIRECTED [id number] Start: 01-05-2023 CHECK BLOOD SUGA R TWICE DAILY [id number] Start: 05-31-2023 CHECK BLOOD SUGA R TWICE DAILY [id number] Start: 05-31-2023 Cmpt Fem Kn Lt 7 0mm Cr Cmnt - [id number] Start: 05-14-2016 Ty Tib As Mx 79m m Intlk Cocr - [id number] Start: 05-14-2016 Cmpt Ptlr Thn 8. 6mm 37mm 3 Pg - [id number] Start: 10-22-2016 Cmpt Fem Kn Rt 7 0mm Cr Cmnt - [id number] Start: 10-22-2016 Clinical Notes 02-17-2022 to 02-10-2024 Javad Alegre, DO - 02/10/2024 5:43 PM Jj Alegre, DO - 01/27/2024 2:34 PM Jj Alegre, DO - 12/23/2023 3:54 PM Pilar Farmer, RN - 06/17/2023 4:43 PM EDTAttachments Note Date & Type Note Facility 02-10-2024 History of Present illness Narrative Patient Name: Susie Boyce Date of : 1950 Date of Service: 02/10/2024 Facility: [facility] Type of Visit: Acute Visit Subjective Susie Boyce is a 73 y.o. male seen today at [facility] facility for problem visit. James continues with behavioral problems. He called 911 yesterday and told the police he was being held against his will. He was upset with his because he said that she didn't RSVP for the family [place] and that he was going to make chicken noodle soup. He gets agitated easily. He is on buspirone 5mg BID for about 6 weeks but doesn't seem to be helping. He has continued to fall and is now in a wheelchair. He didn't have any serious injuries. Allergies: Penicillins and Simvastatin Code Status: [facility] Wt 77.9 kg (171 lb 12.8 oz) [...] Comments: He said his daughter sent him [employer] Summary / Assessment / Plan 1. Parkinson's [...] Javad Alegre DO documented in this encounter [facility] [employer] 01-27-2024 History of Present illness Narrative Patient Name: Susie Boyce Date of : 1950 Date of Service: 01/27/2024 Facility: [facility] Type of Visit: Subsequent Visit Subjective Susie Boyce is a 73 y.o. male seen today at [facility] facility for monthly visit. James has fallen [...] midodrine. Allergies: Penicillins and Simvastatin Code Status: [facility] BP 126/68 Pulse 66 Temp 36.1 C [...] Alzheimer's dementia with anxiety, unspecified dementia severity ([facility]) 2. Parkinson's disease without dyskinesia or fluctuating manifestations ([facility]) 3. Gastroesophageal reflux disease, unspecified [...] Javad Alegre DO documented in this encounter [facility] [employer] 12-23-2023 History of Present illness Narrative Patient Name: Susie Boyce Date of : 1950 Date of Service: 12/23/2023 Facility: [facility] Type of Visit: Acute Visit Subjective Susie Boyce is a 73 y.o. male seen today at [facility] for regular visit. James has been increasingly [...] fine. Allergies: Penicillins and Simvastatin Code Status: [facility] BP 134/76 Pulse 76 Temp 36.6 C [...] Alzheimer's dementia with anxiety, unspecified dementia severity ([facility]) 2. Parkinson's disease without dyskinesia or fluctuating manifestations ([facility]) 3. Anxiety 4. Impaired gait 5. Contusion of scalp, subsequent encounter He is maxed out on SSRI. He was recently started on namenda by psych. Will try buspirone 5 mg BID. Continue other orders as directed. All medications reviewed and are medically necessary. ELECTRONICALLY SIGNED BY: Javad Alegre DO documented in this encounter [facility] [employer] 06-17-2023 History of Present illness Narrative The [...] Documentation: Carbidopa Levodopa 25/250MG Tablets and Pyridostimine [place] 60MG tablets on hold, PT has plenty at home per . Midodrine 2.5MG tablets filled for 10 day supply with ins override since Sent original prescription to mail order. Midodrine was dropped off to PT's room and signed for by Bettie, of PT 4:36PM. 06/17/23 Ok to dicharge per family wish if cleared by cardiology and neurology Bertram Nguyen MD 06/17/2023 [facility] Occupational Therapy Evaluation Date: 06/17/23 Patient Name: Susie Boyce Room: Account: [id number] : 1950 (72 y.o.) Gender: male Discharge [...] Walker accessible Home Equipment: Cane, Walker, rolling, Vacuum Spindle Sander (gait belt, glucometer) ADL Assistance: Independent Homemaking Assistance: Needs assistance (Spouse mainly completes cleaning, cooking, laundry. 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 PROGRESS NOTE 06/17/2023 7:01 AM Name: Susie Boyce Acct: [id number] Room: IP Day: 1 Admit Date: 06/16/2023 [...] Patient was admitted to the hospital in [place] 3 months ago for an episode of [...] was discharged and was brought back to [place]. Since then he has seen neurology who increased donepezil to 15 mg. Was also to admitted to [facility] for fatigue, dark stools and positive FOBT. [...] hypotensive. Denies any loss of consciousness since [place]. Denies any palpitations. 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 Medication education and monitoring per protocol. Patient's personal belongings (please select all that are sent with patient): Glasses RN SIGNATURE: Timur Aldana RNINFORMATION ASSURANCE ENGINEER/SOCIAL WORK SECTION Inpatient Status Date: 06/16/2023 Readmission Risk Assessment Score: Readmission Risk Risk of Unplanned Readmission: 12 Discharging to Facility/ Agency [facility] [address] [facility] [address] Fax Dialysis Facility (if applicable) Name: Address: Dialysis Schedule: Phone: Fax: Slope Runner/Partnership Marketing Manager signature: PHYSICIAN SECTION Prognosis: Fair Condition at [...] attachments cannot be sent through Care Everywhere.midodrine (Tanzanian)Lightheadedness or Faintness (Tanzanian)Orthostatic Hypotension (Tanzanian)Seizure (Tanzanian)Caregiving: Making a Home Safe: General Info (Tanzanian)Diabetes Diet Meal Planning: General Info (Tanzanian)documented in this encounter [facility] 04-27-2023 Miscellaneous Notes Called patient to inform of benign biopsies from colonoscopy and EGD at [facility]. Patient can repeat colonoscopy in 3-5 years for CRC screening, depending upon health status. documented in this encounter [employer] 04-27-2023 Telephone encounter Note Called patient to inform of benign biopsies from colonoscopy and EGD at [facility]. Patient can repeat colonoscopy in 3-5 years for CRC screening, depending upon health status. [employer] Work Phone: 01-25-2023 Note [id number] Susie Boyce 1950 M Date Provider Department [place] 01/25/2023 [facility] Ed No family history on file Reason for Visit and Comments: Cognitive Difficulties [Other] [facility] 01-25-2023 Note [facility] [address] [facility] [address] FAX: [phone] NEUROPSYCHOLOGICAL EVALUATION DATES OF SERVICE: 01/25/2023 DIAGNOSIS: R41.3 Other amnesia DATE OF ONSET: Unknown DATE OF : 1950 AGE: 72 years REASON FOR REFERRAL: This is the initial neuropsychological evaluation of Mr. Susie Boyce, a 72-year-old, right-handed gentleman who was referred for this evaluation by Vale Evangelista MD ([facility] Neurology) to determine present [...] to be. Review of medical records from [facility] include a neurology office visit with [...] appliance therapy was cost prohibitive. Records from [facility] include an Occupational Therapy Recreation Program Specialist Rehabilitation Evaluation conducted on 10/26/2022 by Pat [...] lisinopril, vitamin B12, and recently started donepezil. [facility] records add ibuprofen. PAST MEDICAL HISTORY: Mr. Boyce reports history of Parkinson's disease and diabetes. [facility] records indicate additional history of cervical [...] sugar. He repo (more content not included)... [facility] 10-26-2022 Note Occupational Therapy Occupational Therapy Evaluation Recreation Program Specialist Rehab Patient Name: Susie Boyce : 1950 [...] 72-year-old male who was referred to the sales warehouse driver rehab clinic for a functional community [...] vitamin B12, lisinopril, Prozac. License Number: [id number]. State: [place]. Expiration Date: 2026. License Restrictions: B. Lens. Previous Recreation Program Specialist Eval: No Vehicle Make and Model: 2019 [employer] [place]. Prior difficulties with driving/Citations/Navigation: No accidents, citations, or navigational errors reported. Last time driven: 10/26/2022. Current means of community mobility: Self. Type of traffic driven: All. Reports daily driving, mostly surface streets. Golfs 3 times a week. 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 Primary Recreation Program Specialist/Passenger: Primary sales warehouse driver. Necessity for eval: Medical condition recent [...] wears glasses. He follows up with an senior publications specialist yearly. He reports no visual changes, denies diplopia or blurriness. Range of Motion: Right eye: Full. Left eye: Full. Both eyes: Full. Convergence: Normal. Saccades: Horizontal and vertical. Mild reduction in speed. Right Field: Direct fixation. Left Field: Direct fixation. Pursuits: Sustains fixation. Stereo [employer] Recreation Program Specialist Rehab Vision Test Peripheral Douglass Left Eye: [...] memory skills immediate and delayed, slight reduction. [place] Making Part B: Evaluates divided attention and [...] WNL [place]bow [place] (more content not included)... [facility] 02-17-2022 Hospital course Narrative Images from the original note were not included. [] [facility] Outpatient Rehabilitation & Therapy [address] P: F: [x] [facility] Outpatient Rehabilitation & Therapy [address] P: F: [] [facility] Outpatient Rehabilitation & Therapy [address] P: F: [] [facility] Outpatient Rehabilitation & Therapy [address] [facility] P: F: [] [facility]patient Rehabilitation [facility] Therapy [address] P: F: Physical Therapy [...] from the dentist, doing well. Leaves for [place] next week. Objective: Test Measurements: see goal [...] like to seek out further therapy in [place] while on vacation and plans to continue [...] of treatment sessions. [x] Other: Leaving for [place] for several months. If you have any questions or concerns, please don't hesitate to call. Thank you for your referral. documented in this encounter [employer] Phone: Evaluation note Diagnosis Tremors of nervous system Abnormal involuntary movements Type 2 diabetes mellitus without complication, with long-term current use of insulin (HCC) Other hyperlipidemia documented in this encounter [employer] Phone: evaluation note* Diagnosis Tremors of nervous system Abnormal involuntary movements documented in this encounter [facility] [email or web address] Phone: evaluation note* Diagnosis Tremors of nervous system Abnormal involuntary movements Cervical arthritis Cervical spondylosis without myelopathy Gait abnormality Abnormality of gait documented in this encounter [facility] [email or web address] Phone: evaluation note* Diagnosis B12 deficiency Other B-complex deficiencies documented in this encounter [facility] [email or web address] Phone: evaluation note* Diagnosis Cognitive impairment Unspecified persistent mental disorders due to conditions classified elsewhere documented [facility] this encounter [facility] NetworksEvaluation note* Diagnosis Near syncope- Primary Syncope and collapse Near syncope Syncope and collapse Pre-syncope Syncope and collapse Parkinson's disease without dyskinesia or fluctuating manifestations (HCC) documented in this encounter [facility] [employer] note* Diagnosis Late onset Alzheimer's dementia with [...] Documents on File Type Date Recorded Patient Kiln Tester Expl anation Durable Power of Environmental Quality Analyst 04/16/2023 6:37 PM [facility] DNRCC 024 Latest Code Status on File Code Status Date Activated Date Inactivated Comments DNR Comfort Care Arrest (DNR-CCA) [place] 04/16/2023 6:43 PM 04/20/2023 5:28 PM Latest [...] system Procedures MRI CERVICAL SPINE WO CONTRAST [place], CERV SPINE [address]792 - [place] [address] [place] [address] Referral ID Status Reason Start Date Expiration Date Visits Re quested Visits Authorized [id number] Closed 12/21/2021 12/05/2022 1 0 Specialty Diagnoses / Procedures Referred By Contac t Referred To Contact Radiology Diagnoses Cognitive impairment Procedures MRI BRAIN W WO CONTRAST Vale Evangelista MD [address] [facility] [address] [place] [address] Referral ID Status Reason Start Date Expiration Date Visits Re quested Visits Authorized [id number] Closed 09/03/2022 08/19/2023 1 1 Summary Purpose Family History No Family History Records FoundNo Family History Records FoundNo Family History Records FoundNo Family History Records FoundNo Family History Records Found Additional Source Comments Care Teams (unrecognized sec tion and content) Educational Institution Curator Relationship Specialty [place] [address] [place] [address] PCP - General Family Medicine 02/13/15 Educational Institution Curator Relationship Specialty [place] [address] [address] PCP - General Family Medicine 02/13/15 Educational Institution Curator Relationship Specialty [place] [address] [place] [address] [place] [address] P[address] - [facility] Medicine 02/13/15 Educational Institution Curator Relationship Specialty [place] [address] [place] [address] PCP - [facility] 02/13/15 Educational Institution Curator Relationship Specialty Start [place] [address] [place] [address] PCP - [facility] 02/13/15 Educational Institution Curator Relationship Specialty Start [place] [address] [place] [address] PCP - [facility] 02/13/15 Educational Institution Curator Relationship Specialty Start [place] [address] [place] [address] PCP - [facility] 02/13/15 Educational Institution Curator Relationship Specialty Start [place] [address] [place] [address] PCP - [facility] 02/13/15 Educational Institution Curator Relationship Specialty Start [place] [address] [place] [address] PCP - General 01/07/14 Educational Institution Curator Relationship Specialty Start [place] [address] [place] [address] [place] [address] [address] - [facility] Medicine 02/13/15 Educational Institution Curator Relationship Specialty Start [place] [address] [place] [address] PCP - [facility] 02/13/15 Educational Institution Curator Relationship Specialty Start [place] [address] [place] [address] PCP - General 01/07/14 Educational Institution Curator Relationship Specialty Start [place] [address] [place] [address] PCP - General 01/07/14 Reason for Visit (unrecogniz ed section and content) Specialty Diagnoses / Procedures Referred By Brian centeno Referred To Contact Radiology Diagnoses Tremors of nervous system Cervical arthritis Gait abnormality R25.1 (ICD-10-CM) - Tremors of nervous system Procedures MRI CERVICAL SPINE WO CONTRAST [place], CERV SPINE [address]180 - [place], [place] [address] [place] [address] Referral ID Status Reason Start Date Expiration Date Visits Re quested Visits Authorized [id number] Closed 12/21/2021 12/05/2022 1 0 Specialty Diagnoses / Procedures Referred By Brian centeno Referred To Contact Physical Therapist / Physical Therapy Diagnoses Parkinson's disease (HCC) Maira Morales, SUPERVISORY FORESTER - CORONER/MEDICAL EXAMINER [address] [facility] [address] [place] [address] [facility] [address] [facility] [place] [address] Referral ID Status Reason Start Date Expiration Date Visits Requested Visits Authorized [id number] Authorized Specialty Services Required 2 01/14/2023 1 99 Specialty Diagnoses / Procedures Referred By Brian centeno Referred To Contact Radiology Diagnoses Cognitive impairment Procedures MRI BRAIN W WO CONTRAST Vale Evangelista MD [address] [facility] [address] [place] [address] Referral ID Status Reason Start Date Expiration Date Visits Re quested Visits Authorized [id number] Closed 09/03/2022 08/19/2023 1 1 Reason Comments Loss of Consciousness Specialty Diagnoses / Procedures Referred By Brian centeno Referred To Contact Diagnoses Pre-syncope Near syncope Marta Lozano MD [address] [place] [address] [address] [place] [address] [employer] [address] [place] [address] Referral ID Status Reason Start Date Expiration Date Visits Re quested Visits Authorized [id number] 1 1 Specialty Diagnoses / Procedures Referred By Brian centeno Referred To Contact Diagnoses Pre-syncope Near syncope Marta Lozano MD [address] [place] [address] [address] [place] [address] [employer] [address] [place] [address] (unrecognized sect ion and content) No Status Records FoundNo Status Records FoundNo Status Records FoundNo Status Records FoundNo Status Records Found INFORMATION SOURCE (unrecogn ized section and content) DATE CREATED AUTHOR 10/10/2022 [facility] DATE CREATED AUTHOR AUTHOR'S ORGANIZ ATION 01/31/2023 [facility] DATE CREATED AUTHOR AUTHOR'S ORGANIZ ATION 04/27/2023 [facility] DATE CREATED AUTHOR AUTHOR'S ORGANIZ ATION 06/25/2023 [facility] DATE CREATED AUTHOR AUTHOR'S ORGANIZ ATION 08/05/2023 [facility] Ordered Prescriptions (unrec ognized section and content) [...] BE BASED ON THE PRIMARY CLINICAL RECORDS. [facility]. provides no warranty or guarantee of the accuracy or completeness of information in this document.
--- NOTE | 2024-02-24 04:08 | ED.GENADUL1 ---
HPI HPI - General Adult General Chief complaint: Extremity Injury, Lower Stated complaint: BACK PAIN Time Seen by Provider: 02/24/24 04:07 Source: patient Mode of arrival: ambulance Limitations: no limitations History of Present Illness HPI narrative: Patient is a 73-year-old male who is very pleasant coming in by ambulance from [facility] for right lower hip pain. Patient was here 2 days ago in the morning after a fall, also here 4 days ago for weakness and dizziness. On February 19, patient had a CT of the brain and lab work performed and was sent back to nursing facility. On , patient did have a fall. Patient has had no new falls since 2 days ago. Patient is lying in a left lateral decubitus position secondary to his left hip does not hurt in his right hip does per patient history. Patient states he is normally wheelchair-bound, he is able to use a walker intermittently for transfer. Patient has not been standing with a walker for transfer the last couple days secondary to pain. Patient states he is normally using a wheelchair. Patient is in the rehab facility secondary to chronic knee pain from [id number] from athletics and also because of Parkinson is advancing. Patient is very sharp answering questions, patient has no strokelike signs or symptoms. Patient is alert and orient x 3. Patient has no abdominal pain, nausea or vomiting. No chest pain or shortness of breath he has no headache, no neck pain. Patient has no other acute complaints at this time. Patient states he has not been getting up to a bedside commode, has been using adult diaper for urination and bowel movements last couple days. Patient takes no blood thinners. Patient did have 3 pj placed to the top of his scalp a few days ago. The wound is clean, dry, intact. All systems are negative except as noted/marked. All systems reviewed and otherwise negative. Nurses note and vital signs reviewed and patient is not hypoxic. General: The patient appears well and in mild distress secondary to pain. Patient is resting uncomfortably on cart in a left lateral decubitus position on his left hip because his right hip is bothering him.. Patient is not toxic, lethargic, or listless Skin: Warm, dry, no pallor noted. There is no rash noted. No petechiae, purpura. Patient has 3 pj intact, wound is clean, dry, intact the top of his scalp. Patient does have ecchymosis noted on the skin to the proximal third lateral aspect of his right upper thigh, no other significant signs of ecchymosis to his buttocks or around his lower back or to his inner groin or perineum. Head: Normocephalic, atraumatic; patient has no new signs of trauma, no new midline or paracervical tenderness to palpation. Full range of motion of cervical spine no difficulty. Eye: Normal conjunctiva, no drainage, EOMI. PERRL Ears, Nose, Mouth, and Throat: oral mucosa is moist. Nares patent. Mouth without vesicles. Cardiovascular: Regular Rate and Rhythm, no murmur, gallop, rub Respiratory: Patient is in no distress, no accessory muscle use, lungs are clear to auscultation, no wheezing, rales or rhonchi Back: Mild to moderate lower midline and lower paralumbar tenderness to palpation, this pain is the same as it was a few days ago. The rest of his back is non-tender, no CVA tenderness bilaterally to percussion. No CT LS midline pain GI: no tenderness to palpation, no masses appreciated. No rebound, guarding, or rigidity noted. No distention Musculoskeletal: Patient has full range of motion of all of the extremities except to his right hip. Patient does have full flexion extension of the right hip with passive range of motion by myself with moderate pain to the right of the crest, right upper hip/greater trochanter. Patient does have abduction of the right hip as well with moderate pain performed by myself. For range of motion of right knee, ankle and foot no difficulty. Patient denies any left hip or lower extremity pain. , no motor, sensory, or focal neurological deficits Neurological: A&O x4, normal speech, NIH 0 what patient is able to perform. Patient laying in a left lateral decubitus position, full range of motion of bilateral extremities no difficulty. Patient is not able to lay on his back to perform [id number] secondary to right hip pain. Psychiatric: Cooperative; patient has history of advancing Parkinson's. Related Data Home Medications ?Medication ?Instructions ?Recorded ?Confirmed atorvastatin 40 mg tablet 40 mg PO DAILY 10/16/23 02/22/24 carbidopa ER 25 mg-levodopa 100 mg 1 tab PO QID 10/16/23 02/22/24 tablet,extended release cyanocobalamin (vitamin B-12) 100 100 mcg PO DAILY 10/16/23 02/22/24 mcg tablet donepezil 23 mg tablet 23 mg PO DAILY 10/16/23 02/22/24 fluoxetine 60 mg tablet 60 mg PO DAILY 10/16/23 02/22/24 insulin lispro 100 unit/mL 1 sliding scale dose subcut 10/16/23 02/22/24 subcutaneous cartridge (Humalog USEASDIRECTD U-100 Insulin) melatonin 3 mg capsule 3 mg PO QPM 10/16/23 02/22/24 pantoprazole 40 mg tablet,delayed 40 mg PO QPM 10/16/23 02/22/24 release pyridostigmine bromide 30 mg tablet 30 mg PO BID 10/16/23 02/22/24 sitagliptin phosphate 100 mg 100 mg PO BID 10/16/23 02/22/24 tablet (Januvia) clonazepam 0.5 mg tablet 0.5 mg PO Q12H 02/22/24 02/22/24 insulin glargine 100 unit/mL 20 unit subcut BEDTIME 02/22/24 02/22/24 subcutaneous solution (Lantus U-100 Insulin) memantine 5 mg tablet 5 mg PO DAILY 02/22/24 02/22/24 ziprasidone HCl 20 mg capsule 20 mg PO Q12H PRN agitation 02/22/24 02/22/24 (Anita) Previous Rx's ?Medication ?Instructions ?Recorded ibuprofen 400 mg tablet 400 mg PO TID PRN pain #14 tabs 02/22/24 diazepam 2 mg tablet 2 mg PO BID PRN muscle spasm #10 02/24/24 tabs Allergies Allergy/AdvReac Type Severity Reaction Status Date / Time Penicillins Allergy Severe Anaphylaxis Verified 02/22/24 07:08 Opioid HPI Opioid Management Most Recent Opioid Data: Last Pain Scale 8 02/24/24 04:23 02/24/24 Last ED Pain Assessment 02/22/24 10:02 [facility] Medical History (Updated 02/24/24 @ 07:00 by Jacob Patterson MD) Osteoarthritis ?M19.90 - Unspecified osteoarthritis, unspecified site (ICD-10) HTN (hypertension) ?I10 - Essential (primary) hypertension (ICD-10) Homicidal ideations ?R45.850 - Homicidal ideations (ICD-10) Diabetes ?E11.9 - Type 2 diabetes mellitus without complications (ICD-10) Parkinson disease ?G20.A1 - Parkinson's disease without dyskinesia, without mention of fluctuations (ICD-10) Hyperlipemia ?E78.5 - Hyperlipidemia, unspecified (ICD-10) Anxiety ?F41.9 - Anxiety disorder, unspecified (ICD-10) Alzheimer disease ?G30.9 - Alzheimer's disease, unspecified (ICD-10) ?F02.80 - Dementia in other diseases classified elsewhere, unspecified severity, without behavioral disturbance, psychotic disturbance, mood disturbance, and anxiety (ICD-10) Agitation ?R45.1 - Restlessness and agitation (ICD-10) Depression ?F32.A - Depression, unspecified (ICD-10) Dementia ?F03.90 - Unspecified dementia, unspecified severity, without behavioral disturbance, psychotic disturbance, mood disturbance, and anxiety (ICD-10) Social History Little interest or pleasure in doing things: not at all Feeling down, depressed, or hopeless: not at all Exam Constitutional Vital Signs, click to edit/add: Last Vital Signs Temp 97.6 F 02/24/24 03:58 Pulse 56 L 02/24/24 03:58 Resp 16 02/24/24 03:58 BP 118/58 02/24/24 03:58 Pulse Ox 97 02/24/24 03:58 O2 Del Method Room Air 02/24/24 03:58 Course Vital Signs Vital signs: Vital Signs Temperature 97.6 F 02/24/24 03:58 Pulse Rate 56 L 02/24/24 03:58 Respiratory Rate 16 02/24/24 03:58 Blood Pressure 118/58 02/24/24 03:58 Pulse Oximetry 97 02/24/24 03:58 Oxygen Delivery Method Room Air 02/24/24 03:58 Temperature 97.6 F 02/24/24 03:58 Pulse Rate 56 L 02/24/24 03:58 Respiratory Rate 16 02/24/24 03:58 Blood Pressure 118/58 02/24/24 03:58 Pulse Oximetry 97 02/24/24 03:58 Oxygen Delivery Method Room Air 02/24/24 03:58 Medical Decision Making MDM Narrative Medical decision making narrative: Patient had a CT of the head done 2 days ago, patient did have an x-ray of his right hip showed no acute fracture. Patient states the pain is slightly worse compared to was a few days ago to his right lower midline posterior pelvic area, right iliac crest, right upper thigh/greater trochanter. Patient is not displaying significant pain out of proportion, but patient went for CT of his pelvis and right lower extremity to encompass the right hip to make sure there is no other small acute fracture that was not picked up on x-ray a few days ago. Patient is normally wheelchair-bound, does use a walker for small transfers only. Patient is alert and orient x 4, no change in mental status, no strokelike signs or symptoms at all patient takes no blood thinners. 0655 CT of the pelvis and lower extremity are pending at transition. Patient's pain is improved with Tylenol, Valium. Patient has ice applied. If CTs are negative, patient may be transition and discharged back to rehab facility. Patient will be given a prescription of Valium to use if needed for pain or muscle spasm. Patient is to continue ice. [address] report came back as shift change. I discharge this patient. Patient CT of the pelvis and lower extremity reports were printed. Patient was given a prescription of Valium to help with muscle pain, lumbar spasm. Patient is aware not to use Valium with other medications prescribed, and to be cautious. This was written on discharge paperwork for nursing as well. Patient was extremely polite. Patient's buttocks has small areas of ecchymosis over the right greater trochanter, patient has no large palpable hematoma in his right buttocks that is palpated or seen. Ecchymosis is seen superficially to the lateral aspect of his right hip. No acute fracture. Patient will be discharged. Discharge Plan Discharge Chief Complaint: Extremity Injury, Lower Clinical Impression: Hip pain, right, Contusion of right buttock, Hematoma of right buttock Patient Disposition: Home, Self-Care Time of Disposition Decision: 06:59 Condition: Fair Prescriptions / Home Meds: New diazepam 2 mg tablet 2 mg PO BID PRN (Reason: muscle spasm) Qty: 10 0RF No Action clonazepam 0.5 mg tablet 0.5 mg PO Q12H ziprasidone HCl [Geodon] 20 mg capsule 20 mg PO Q12H PRN (Reason: agitation) Rx Instructions: give with food (meal/snack) insulin glargine [Lantus U-100 Insulin] 100 unit/mL solution 20 unit SUBCUT BEDTIME memantine 5 mg tablet 5 mg PO DAILY ibuprofen 400 mg tablet 400 mg PO TID PRN (Reason: pain) Qty: 14 0RF atorvastatin 40 mg tablet 40 mg PO DAILY carbidopa-levodopa 25-100 mg tablet extended release 1 tab PO QID donepezil 23 mg tablet 23 mg PO DAILY fluoxetine 60 mg tablet 60 mg PO DAILY Humalog U-100 Insulin 100 unit/mL cartridge 1 sliding scale dose subcut USEASDIRECTD Januvia 100 mg tablet 100 mg PO BID melatonin 3 mg capsule 3 mg PO QPM pantoprazole 40 mg tablet,delayed release (DR/EC) 40 mg PO QPM pyridostigmine bromide 30 mg tablet 30 mg PO BID cyanocobalamin (vitamin B-12) 100 mcg tablet 100 mcg PO DAILY Print Language: Lithuanian Instructions: Contusion in Adults (ED), Hip Pain (ED), Hematoma (ED) Additional Instructions: Use ice 20 minutes on, 20 minutes off. Use Valium as needed for muscle spasm, be cautious of using Valium with other medications as well. A copy of the CT reports have been given to of the pelvis and lower extremity. Follow-up with PCP and continue rehab Referrals: ARSENIO RODRIGUEZ [Primary Care Provider] - 1 week
--- NOTE | 2024-02-24 04:11 | CT_ITS ---
The [address] [address] Patient Name: SUSIE SAMUELS MRN: [id number] date: 1950 Sex: M Assigned Patient Location: ER Current Patient Location: ER Accession/Order Number: [id number] Exam Date: 02/24/2024 05:24 Report Date: 02/24/2024 06:42 At the request of: VIKKI KELLEY Procedure: CT pelvis wo con EXAM: CT pelvis wo con HISTORY: fall COMPARISON: Right hip series dated 02/22/2024. TECHNIQUE: Routine CT pelvis without intravenous contrast. FINDINGS: The bony structures are osteopenic. The alignment is anatomic. There is no fracture. There are 7.6 x 2.3 x 3.1 cm and 1.5 x 3.1 x 1.3 cm hyperdense lesions within the right gluteus tucker muscle and a 1.9 x 3.2 x 1.3 cm hyperdense lesion within the right gluteus medius muscle which most likely are hematomas. There are intramuscular stranding densities between the right gluteus tucker and medius muscles which most likely is secondary to hemorrhage. There are stranding densities within the subcutaneous tissues of the right hip and right buttock which most likely are secondary to ecchymosis. There are mild degenerative changes at both hip joints. There is a 9 mm fibrocyst anterior margin superolateral aspect of the proximal right femur at the head neck junction. There is no avascular necrosis. There are moderate discogenic degenerative changes at L5-S1. There is mild paravertebral ossification at L4-5. The sacrum and coccyx are unremarkable. The bilateral sacroiliac joints are unremarkable. The symphysis is unremarkable. There is no acute process within the peritoneal cavity. There are sigmoid diverticula without diverticulitis. There is no free air, free fluid or inflammatory reaction. The unopacified urinary bladder is unremarkable. The prostate gland is mildly enlarged and contains several calcifications. There is a moderate amount of fat extending into the left inguinal canal. There are stranding densities within the subcutaneous tissues of the anterior pelvic wall. Correlate with a history of subcutaneous injections. Severe atheromatous calcifications abdominal aorta and iliac arteries. There are no pathologically enlarged lymph nodes. CT/CT pelvis wo con IMPRESSION: There is no acute fracture or malalignment. There are 7.6 x 2.3 x 3.1 cm and 1.5 x 3.1 x 1.3 cm hyperdense lesions within the right gluteus tucker muscle and a 1.9 x 3.2 x 1.3 cm hyperdense lesion within the right gluteus medius muscle which most likely are hematomas. There are intramuscular stranding densities between the right gluteus tucker and medius muscles which most likely is secondary to hemorrhage. There are stranding densities within the subcutaneous tissues of the right hip and right buttock which most likely are secondary to ecchymosis. Chronic findings as described in the body the report. Electronically authenticated by: FRANCISCO J VEGA Date: 02/24/2024 06:42
--- NOTE | 2024-02-24 04:11 | CT_ITS ---
[address] [address] Patient Name: SUSIE SAMUELS MRN: [id number] date: 1950 Sex: M Assigned Patient Location: ER Current Patient Location: ER Accession/Order Number: [id number] Exam Date: 02/24/2024 05:24 Report Date: 02/24/2024 06:48 At the request of: VIKKI KELLEY Procedure: CT lower leg RT wo con EXAM: CT lower leg RT wo con HISTORY: fall COMPARISON: None. TECHNIQUE: Routine CT right tibia/fibula and right ankle without intravenous contrast. FINDINGS: The bony structures are osteopenic. The alignment is anatomic. There is no acute fracture. Cemented total right knee arthroplasty without periimplant fracture/lucency or malalignment. There is no significant joint effusion at the knee. Small enthesophyte at the patellar attachment of the quadriceps tendon. The plafond and talar dome are smoothly marginated. There is an old 3.7 mm osteochondral injury along the medial aspect of the talar dome without disruption or irregularity of the subchondral plate. The joint spaces are maintained. Moderate enthesophytes at the calcaneal attachment of the Achilles tendon and the plantar fascia. There is edema within Kager's fat. No tendinous derangement is seen. There is no muscular derangement. There is no soft tissue mass. Extensive multivessel atherosclerotic disease. CT/CT lower leg RT wo con IMPRESSION: There is no acute fracture or malalignment. Cemented total right knee arthroplasty without periimplant fracture/lucency or malalignment. There is an old 3.7 mm osteochondral injury along the medial aspect of the talar dome without disruption or irregularity of the subchondral plate. Moderate enthesophytes at the calcaneal attachment of the Achilles tendon and plantar fascia. There is edema within Kager's fat. No tendinous treatment is some identified. No tendinous derangement is seen. Electronically authenticated by: FRANCISCO J VEGA Date: 02/24/2024 06:48
[2024-02-24] MEDS: ACETAMINOPHEN 500 MG TABLET PO (04:52)
[2024-02-24] MEDS: DIAZEPAM 2 MG TABLET PO (04:52)
[2024-02-24] MEDS: BACITRACIN 0.9 GM PACKET 1 PACKET TOPICAL (04:52)
== END 2024-02-24 09:01 | disposition home or self-care (01) ==
PROVIDERS: Emergency Provider Emergency Medicine; PCP Family Medicine
DX: S30.0XXA Contusion of lower back and pelvis, initial encounter (principal); Z99.3 Dependence on wheelchair; G20.A1 Parkinson's disease without dyskinesia, without mention of fluctuations; S01.01XD Laceration without foreign body of scalp, subsequent encounter; M25.551 Pain in right hip; Z96.651 Presence of right artificial knee joint; W19.XXXA Unspecified fall, initial encounter
CPT/HCPCS: 72192; 73700; 99284

== ENCOUNTER 2024-05-11 00:44 | Emergency (ER) | payer MEDICARE, SELFPAY ==
[2024-05-11 00:46] VITALS: BP 133/70; PULSE 56; TEMP 36.8; O2SAT 100
--- OUTSIDE RECORDS SUMMARY | 2024-05-11 01:15 | XMS_ITS | CCD ---
Author Organization [facility] Care Team Providers Care Pigment Pumper Name Role Phone Dandre Swanson MD Primary Care Provider VALE EVANGELISTA Attending Unavailable VALE EVANGELISTA Referring Unavailable SWASNON, DANDRE M Primary Care Unavailable VALE EVANGELISTA [...] Unavailable Dandre Swanson MD Primary Care Provider DANDRE SWANSON Primary Care Unavailable SWANSON, DANDRE M Referring Unavailable SWANSON, DANDRE M Referring Unavailable SWANSON, DANDRE M Primary Care Unavailable MAIRA MORALES Referring Unavailable SWANSON, DANDRE M Primary Care Unavailable BOWEN, JOHAN Referring Unavailable SWANSON, DANDRE M Primary Care Unavailable SWANSON, DANDRE M Primary Care Unavailable SARITA, LETY Admitting Unavailable SHIRLEY CASTANEDA Attending Unavailable HOLDENBERTRAM MONTEJO S Consulting Unavailable SWANSON, DANDRE M Primary Care Unavailable JOSEF FARAH Consulting Unavailable LISET, MARTA Admitting Unavailable LISET, MARTA Attending Unavailable JOHAN WISEMAN Consulting Unavailable CODY DOUGHERTY Consulting Unavailable Dandre Swanson MD Primary Care Provider Allergies Allergy Classification Reported Allergen(s) Allergy Type Date of Onset Reaction(s) Facility (20 sources) Penicillins; Translations: [PENICILLINS] Propensity to adverse reactions to drug 5 Anaphylaxis [facility] (20 sources) Simvastatin; Translations: [SIMVASTATIN] Drug Allergy 5 Other (See Comments) [employer] Phone: (1 source) ALLERGIES NOT ON FILE; Translations: [ALLERGIES NOT ON FILE] Propensity to adverse reactions (disorder) [facility] (2 sources) Vibegron Propensity to adverse reactions to drug 4 Rash [facility] Work Phone: (2 sources) Metformin And Related Propensity to adverse reactions to drug 4 Diarrhea [facility] Medications Current Medications Medication Drug Class(es) Dates Sig (Normalized) Sig (Original) Acetaminophen (9 sources) Start: 06-16-2023 acetaminophen (TYLENOL) tablet 650 mg take 2 tablets by [facility] every six hours as needed for pain acetaminophen (TYLENOL) 325 MG tablet Ta ke 650 mg by mouth every 6 hours as needed for Pain 0 Active atorvastatin 40 mg oral tablet (20 sources) HMG-CoA Reductase Inhibitor Start: 09-01-2022 atorvastatin (LIPITO R) 40 MG tablet Indications: Type 2 diabetes mellitus without complication, with long-term current use of insulin (HCC) , Other hyperlipidemia TAKE 1 TABLET IN THE MORNING 90 tablet 3 09/01/2022 Active Start: 10-13-2021 take 1 tablet by brad th in the morning atorvastatin (LIPITOR) 40 MG tablet Indications: Type 2 diabetes mellitus without complication, with long-term current use of insulin (HCC) , Other hyperlipidemia Take 1 tablet by mouth in the morning. 90 tablet 3 10/13/2021 Active Start: 02-12-2016 take 2 tablets by mo uth three times weekly atorvastatin (LIPITOR) 20 mg tablet Take 2 tablets (40 mg total) by mouth See Admin Instructions. THREE TIMES A WEEK 02/12/2016 Active carbidopa 25 mg / levodopa 250 mg oral tablet (16 sources) Aromatic Amino Acid Decarboxylation Inhibitor, Aromatic Amino Acid Start: 03-31-2023 End: 09-27-2023 carbidopa-levodopa (SINEMET) 25-250 mg per tablet Take 1 tablet by mouth in the morning and 1 tablet at noon and 1 tablet in the evening and 1 tablet before bedtime. Pt takes at 8AM, 12PM, 4PM and 8PM. 03/31/2023 09/27/2023 Active Start: 03-31-2023 End: 12-14-2023 take 1 tablet by mouth four times daily carbidopa-levodopa (SINEMET) 25-250 MG per tablet Indications: Parkinson's disease without dyskinesia or fluctuating manifestations (HCC) Take 1 tablet by mouth 4 times daily 360 tablet 1 03/31/2023 06/17/2023 Discontinued Start: 05-11-2022 take 1 tablet by brad th four times daily carbidopa-levodopa (SINEMET) 25-250 MG per tablet Take 1 tablet by mouth 4 times daily 360 tablet 3 05/11/2022 Active Start: 01-14-2022 End: 02-13-2022 take 2 tablets by mouth four times daily carbidopa-levodopa (SINEMET) 25-100 MG per tablet Take 2 tablets by mouth 4 times daily 720 tablet 3 02/10/2022 Active 1000 ml glucose 100 mg/ml injection [...] Active insulin detemir 100 unt/ml injectable solution (20 sources) Insulin Analog Start: 04-20-2023 insulin detemi [...] with long-term current use of insulin (HCC) INJECT SUBCUTANEOUSLY 55 UNITS DAILY 60 mL 3 07/07/2022 09/08/2022 Discontinued (REORDER) Start: 10-13-2021 End: 11-14-2022 insulin detemir (LEVEMIR FLE XTOUCH) 100 UNIT/ML injection pen Indications: Type 2 diabetes mellitus without complication, with long-term current use of insulin ([facility]) Inject 40 Units into the skin nightly 36 mL 3 10/13/2021 01/11/2022 Active lisinopril 2.5 mg oral tablet (9 sources) Angiotensin Converting Enzyme Inhibitor Start: 04-27-2022 lisinopril (PRINIVIL;ZESTRIL) 2.5 MG tablet Indications: Type 2 diabetes mellitus without complication, with long-term current use of insulin ([facility]) TAKE 1 TABLET DAILY 90 tablet 3 04/27/2022 Active Start: 04-13-2021 lisinopril (KY INIVIL;ZESTRIL) 2.5 MG tablet Indications: Type 2 diabetes mellitus without complication, with long-term current use of insulin ([facility]) TAKE 1 TABLET DAILY 90 [...] carisa 500 mg extended release oral tablet (20 sources) B i g u a n [...] Discharge) midodrine hydrochloride 2.5 mg oral tablet (17 sources) alpha-Adrenergic Agonist Start: 06-16-2023 2.5 m [...] pantoprazole 40 mg delayed release oral tablet (16 sources) Proton Pump Inhibitor Start: 04-20-2023 End: 05-07-2024 take 1 tablet by mouth once daily before breakfast pantoprazole (PROTONIX) 40 mg EC tablet Take 1 tablet (40 mg total) by mouth every morning before breakfast. 07/28/2023 Active Potassium Chloride (1 source) Start: 06-16-2023 potassium chloride (KLOR-CON M) extended release tablet 40 mEq pyridostigmine bromide 60 mg oral tablet (20 sources) Start: 07-23-2023 take 0.5 tablet by [...] Drug Class(es) Dates Sig (Normalized) Sig (Original) donepezil hydrochloride 5 mg oral tablet (16 sources) Start: 06-16-2023 take 15 mg by [...] invasive procedure. FLUoxetine 20 mg oral capsule (20 sources) Serotonin Reuptake Inhibitor Start: 06-16-2023 take [...] 09/01/2022 09/08/2022 Discontinued (REORDER) Start: 10-26-2021 FLUoxetine (KY OZAC) 20 MG capsule Indications: Recurrent major [...] at 0900, Until Discontinued polyethylene glycol 3350 88136 mg powder for oral solution (1 source) [...] Date Documented Da te Episodic/Chronic Anxiety disorders (18 sources) Anxiety; Translations: [Anxiety disorder, unspecified] Onset: 7 10-23-2016 Chronic Aortic; peripheral; and visceral artery aneurysms (20 sources) Abdominal aortic aneurysm; Translations: [Abdominal aortic aneurysm, without rupture] Onset: 1 12-02-2020 Chronic Delirium, dementia, and amnestic and other cognitive disorders (20 sources) Senile dementia of the Lewy body type; Translations: [Dementia with Lewy bodies] Onset: 4 02-24-2024 Chronic Diabetes mellitus with complications (20 sources) Neuropathy due to type 2 diabetes mellitus; Translations: [Type 2 diabetes mellitus with diabetic neuropathy, unspecified] Onset: 5 01-19-2022 Chronic Disorders of lipid metabolism (20 sources) Hyperlipidemia; Translations: [Other hyperlipidemia] Onset: 5 Chronic Esophageal disorders (6 sources) Gastroesophageal reflux disease; Translations: [Gastro-esophageal reflux disease without esophagitis] Onset: 4 01-27-2024 Chronic Essential hypertension (14 sources) Essential hypertension; Translations: [Essential (primary) hypertension] Onset: 4 09-09-2023 Chronic Genitourinary symptoms and ill-defined conditions (13 sources) Urinary incontinence; Translations: [Unspecified urinary incontinence] Onset: 4 09-09-2023 Chronic Genitourinary symptoms and ill-defined conditions (1 source) Hematuria, unspecified; Translations: [Hematuria, unspecified] Onset: 4 Episodic Impulse control disorders, NEC (1 source) Homicidal ideations; Translations: [Homicidal ideations] Onset: 4 Episodic Mood disorders (20 sources) Depressive disorder; Translations: [Depression] Onset: 7 12-19-2018 Chronic Open wounds of head; neck; and trunk (5 sources) Scalp laceration; Translations: [Laceration without foreign body of scalp, subsequent encounter] Onset: 4 02-24-2024 Episodic Osteoarthritis (20 sources) Arthritis of knee; Translations: [Unilateral primary osteoarthritis, unspecified knee] Onset: 5 12-17-2014 Chronic Other connective tissue disease (4 sources) Recurrent falls ; Translations: [Repeated falls] Onset: 4 02-24-2024 Episodic Other gastrointestinal disorders (1 source) Other fecal abnormalities; Translations: [Other fecal abnormalities] Onset: 4 Episodic Other gastrointestinal disorders (1 source) Diarrhea Onset: 4 Episodic Other hereditary and degenerative nervous system conditions (2 sources) Mild cognitive impairment, so stated; Translations: [Mild cognitive impairment of uncertain or unknown etiology] Onset: 3 Chronic Other hereditary and degenerative nervous system conditions (2 sources) Sympathotonic orthostatic hypotension; Translations: [Multi-system degeneration of the autonomic nervous system] 03-31-2024 Chronic Other nervous system disorders (20 sources) Neuropathy; Translations: [Polyneuropathy, unspecified] Onset: 2 01-14-2022 Chronic Other nervous system disorders (3 sources) Tremor; Translations: [Tremor, unspecified] Episodic Other nervous system disorders (20 sources) Abnormal gait; Translations: [Unspecified abnormalities of gait and mobility] Onset: 2 Episodic Other nutritional; endocrine; and metabolic disorders (11 sources) Cholesterol level - finding; Translations: [Lipoprotein deficiency] Onset: 4 09-14-2023 Chronic Parkinson`s disease (20 sources) Parkinson's disease; Translations: [Parkinson's disease] Onset: 2 01-14-2022 Chronic Parkinson`s disease (3 sources) Parkinson`s disease; Translations: [Parkinson's disease with dyskinesia, without mention of fluctuations] Onset: 2 Residual codes; unclassified (1 source) Sleep apnea, unspecified; Translations: [Sleep apnea, unspecified] Onset: 3 Chronic Residual codes; unclassified (15 sources) Sleep apnea; Translations: [Sleep apnea, unspecified] Onset: 3 09-13-2022 Chronic Residual codes; unclassified (1 source) Restlessness and agitation; Translations: [Restlessness and agitation] Onset: 4 Chronic Residual codes; unclassified (2 sources) Other amnesia; Translations: [Other amnesia] Onset: 3 Episodic Residual codes; unclassified (1 source) Other specified health status; Translations: [Other specified health status] Onset: 4 Episodic Spondylosis; intervertebral disc disorders; other back problems (19 sources) Cervical arthritis; Translations: [Spondylosis without myelopathy or radiculopathy, cervical region] Onset: 2 Chronic Syncope (6 sources) Near syncope; Translations: [...] E Codes: Adverse effects of medical drugs (14 sources) Adverse reaction to drug; Translations: [Adverse effect of unspecified drugs, medicaments and biological substances, initial encounter] Onset: 04-17-2023 04-17-2023 Episodic Gastrointestinal hemorrhage (15 sources) Melena; Translations: [Melena] Onset: 04-16-2023 04-18-2023 Episodic Nutritional deficiencies (20 sources) Cobalamin deficiency; Translations: [Deficiency of other specified B group vitamins] Onset: 10-30-2021 10-30-2021 Episodic Other aftercare (1 source) 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; Translations: [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] Onset: 12-17-2014 Episodic Other circulatory disease (13 sources) Low blood pressure; Translations: [Hypotension, unspecified] Onset: 09-09-2023 09-09-2023 Episodic Other gastrointestinal disorders (14 sources) Loose stool; Translations: [Other fecal abnormalities] Onset: 04-17-2023 04-17-2023 Episodic Other nervous system disorders (16 sources) Impaired cognition; Translations: [Other symptoms and [...] conditions (not mental disorders or infectious disease) (12 sources) Other specified abnormal findings of blood chemistry; Translations: [Other abnormal blood chemistry] Onset: 09-14-2023 09-14-2023 Episodic Other skin disorders (20 sources) Keratoacanthoma; Translations: [Other specified epidermal thickening] Onset: 11-29-2019 11-29-2019 Episodic Superficial injury; contusion (2 sources) Contusion of lower back and pelvis, initial encounter; Translations: [Contusion of buttock] 09-02-2023 Episodic Unclassified (2 sources) Onset: 09-08-2022 09-08-2022 Urinary tract infections (15 sources) Urinary tract infection, site not specified; Translations: [Urinary tract infectious disease] Onset: 04-16-2023 Resolved: 08-05-2023 08-05-2023 Episodic Viral infection (1 source) Disease caused by 2019-nCoV; Translations: [COVID-19] 11-04-2023 Episodic Results Test Name Value Interpretation Reference Range Facility Glucose,Whole Bloodon 2023 Glucose [Mass/Vol] 169 mg/dL High 75-110 [facility] Glucose [Mass/Vol] 129 mg/dL High 75-110 [facility] Glucose [Mass/Vol] 149 mg/dL High 75-110 [facility] Glucose,Whole Bloodon 2023 Glucose [Mass/Vol] 210 mg/dL High 75-110 [facility] Glucose [Mass/Vol] 169 mg/dL High 75-110 [facility] Glucose [Mass/Vol] 120 mg/dL High 75-110 [facility] Glucose [Mass/Vol] 139 mg/dL High 75-110 [facility] Glucose,Whole Bloodon 2023 Glucose [Mass/Vol] 222 mg/dL High 75-110 [facility] Glucose [Mass/Vol] 172 mg/dL High 75-110 [facility] Glucose [Mass/Vol] 165 mg/dL High 75-110 [facility] Glucose [Mass/Vol] 178 mg/dL High 75-110 [facility] Glucose,Whole Bloodon 2023 Glucose [Mass/Vol] 249 mg/dL High 75-110 [facility] Glucose [Mass/Vol] 96 mg/dL Normal 75-110 [facility] Glucose [Mass/Vol] 57 mg/dL Low 75-110 [facility] Comment on above: Result Comment: Bulmaro Pedraza Glucose,Whole Bloodon 2023 Glucose [Mass/Vol] 121 mg/dL High 75-110 [facility] Glucose [Mass/Vol] 70 mg/dL Low 75-110 [facility] Glucose [Mass/Vol] 73 mg/dL Low 75-110 [facility] Glucose [Mass/Vol] 57 mg/dL Low 75-110 [facility] Glucose [Mass/Vol] 71 mg/dL Low 75-110 [facility] Glucose,Whole Bloodon 2023 Glucose [Mass/Vol] 77 mg/dL Normal 75-110 [facility] Glucose [Mass/Vol] 95 mg/dL Normal 75-110 [facility] Glucose [Mass/Vol] 110 mg/dL Normal 75-110 [facility] Glucose [Mass/Vol] 123 mg/dL High 75-110 [facility] Glucose,Whole Bloodon 2023 Glucose [Mass/Vol] 224 mg/dL High 75-110 [facility] Glucose [Mass/Vol] 148 mg/dL High 75-110 [facility] Glucose [Mass/Vol] 184 mg/dL High 75-110 [facility] Glucose,Whole Bloodon 2023 Glucose [Mass/Vol] 129 mg/dL High 75-110 [facility] Glucose [Mass/Vol] 141 mg/dL High 75-110 [facility] Glucose [Mass/Vol] 87 mg/dL Normal 75-110 [facility] Glucose [Mass/Vol] 103 mg/dL Normal 75-110 [facility] Glucose,Whole Bloodon 2023 Glucose [Mass/Vol] 139 mg/dL High 75-110 [facility] Glucose [Mass/Vol] 184 mg/dL High 75-110 [facility] Glucose [Mass/Vol] 70 mg/dL Low 75-110 [facility] Glucose,Whole Bloodon 2023 Glucose [Mass/Vol] 181 mg/dL High 75-110 [facility] Glucose [Mass/Vol] 126 mg/dL High 75-110 [facility] Glucose [Mass/Vol] 132 mg/dL High 75-110 [facility] Glucose [Mass/Vol] 156 mg/dL High 75-110 [facility] Glucose,Whole Bloodon 2023 Glucose [Mass/Vol] 213 mg/dL High 75-110 [facility] Glucose [Mass/Vol] 143 mg/dL High 75-110 [facility] Glucose [Mass/Vol] 118 mg/dL High 75-110 [facility] Glucose [Mass/Vol] 78 mg/dL Normal 75-110 [facility] Glucose,Whole Bloodon 2023 Glucose [Mass/Vol] 208 mg/dL High 75-110 [facility] Glucose [Mass/Vol] 168 mg/dL High 75-110 [facility] Glucose [Mass/Vol] 92 mg/dL Normal 75-110 [facility] Glucose [Mass/Vol] 135 mg/dL High 75-110 [facility] Glucose,Whole Bloodon 2023 Glucose [Mass/Vol] 171 mg/dL High 75-110 [facility] Glucose [Mass/Vol] 132 mg/dL High 75-110 [facility] Glucose [Mass/Vol] 166 mg/dL High 75-110 [facility] Glucose [Mass/Vol] 191 mg/dL High 75-110 [facility] Glucose,Whole Bloodon 2023 Glucose [Mass/Vol] 156 mg/dL High 75-110 [facility] Glucose [Mass/Vol] 155 mg/dL High 75-110 [facility] Glucose [Mass/Vol] 143 mg/dL High 75-110 [facility] Glucose [Mass/Vol] 145 mg/dL High 75-110 [facility] Glucose,Whole Bloodon 2023 Glucose [Mass/Vol] 183 mg/dL High 75-110 [facility] Glucose [Mass/Vol] 116 mg/dL High 75-110 [facility] Glucose [Mass/Vol] 84 mg/dL Normal 75-110 [facility] Glucose [Mass/Vol] 99 mg/dL Normal 75-110 [facility] Glucose,Whole Bloodon 2023 Glucose [Mass/Vol] 113 mg/dL High 75-110 [facility] Glucose [Mass/Vol] 106 mg/dL Normal 75-110 [facility] Glucose [Mass/Vol] 103 mg/dL Normal 75-110 [facility] Glucose [Mass/Vol] 153 mg/dL High 75-110 [facility] B12/Folate Panelon Cobalamin (Vitamin B12) [Mass/Vol] 461 pg/mL Normal 232-1245 [facility] Comment on above: Performed By: #### B 12FOL ####[facility] [place], [place] [id number] lab Director: Norberto Condon MD Folic Acid 12.2 ng/mL Normal 4.8-24.2 [facility] Comment on above: Performed By: #### B 12FOL ####[facility] [id number] [place], [place] [id number] Lab Director: Norberto Condon MD Glucose,Whole Bloodon 2023 Glucose [Mass/Vol] 207 mg/dL High 75-110 [facility] Glucose [Mass/Vol] 180 mg/dL High 75-110 [facility] Glucose [Mass/Vol] 213 mg/dL High 75-110 [facility] Glucose [Mass/Vol] 138 mg/dL High 75-110 [facility] CBC with Diffon 07-18-2023 Abs. Basophil 0.00 k/uL Normal 0.0-0.2 [facility] Comment on above: Performed By: #### C DP, MG, CP, ALCB ####[facility] [address] [place] [address] Lab Director: Reji Son DO Abs.Neutrophil (Seg) 7.60 k/uL Normal 1.3-9.1 [facility] Comment on above: Performed By: #### C DP, MG, CP, ALCB ####[facility] [id number] [place] [address] Lab Director: Reji Son DO Basophils/100 WBC (Bld) 1 % Normal 0-2 [facility] Comment on above: Performed By: #### C DP, MG, CP, ALCB ####[facility] [id number] [place] [address] Lab Director: Reji Son DO Eosinophils (Bld) [#/Vol] 0.10 10*3/uL Normal 0.0-0.4 [facility] Comment on above: Performed By: #### C DP, MG, CP, ALCB ####[facility] [id number] [place] [address] Lab Director: Reji Son DO Eosinophils/100 WBC (Bld) 2 % Normal 0-4 [facility] Comment on above: Performed By: #### C DP, MG, CP, ALCB ####[facility] [id number] [place] [address].[place] [address] Lab Director: Reji Son DO Erythrocyte distribution width (RBC) [Ratio] 13.9 % Normal 11.5-14.9 [facility] Comment on above: Performed By: #### C DP, MG, CP, ALCB ####[facility] [id number] [place] [address] Lab Director: Reji Son DO Hematocrit (Bld) [Volume fraction] 42.8 % Normal 41-53 [facility] Comment on above: Performed By: #### C DP, MG, CP, ALCB ####[facility] [id number], [place] [phone] Director: Reji Son DO Hemoglobin (Bld) [Mass/Vol] 14.4 g/dL Normal 13.5-17.5 [facility] Comment on above: Performed By: #### C DP, MG, CP, ALCB ####[facility] [id number] [place] [address] lab Director: Reji Son DO Lymphocytes (Bld) [#/Vol] 1.20 10*3/uL Normal 1.0-4.8 [facility] Comment on above: Performed By: #### C DP, MG, CP, ALCB ####[facility] [id number] [facility], [place] [address])[phone] Director: Reji Son DO Lymphocytes/100 WBC (Bld) 12 % Low 24-44 [facility] Comment on above: Performed By: #### C DP, MG, CP, ALCB ####[facility] [id number] [facility], [place] [address])[phone] Director: Reji Son DO MCH (RBC) [Entitic mass] 30.3 pg Normal 26-34 [facility] Comment on above: Performed By: #### C DP, MG, CP, ALCB ####[facility] [id number], [place] [phone] Director: Reji Son DO MCHC (RBC) [Mass/Vol] 33.7 g/dL Normal 31-37 [facility] Comment on above: Performed By: #### C DP, MG, CP, ALCB ####[facility] [id number] [place] [address] Lab Director: Reji Son DO MCV (RBC) [Entitic vol] 89.9 fL Normal 80-100 [facility] Comment on above: Performed By: #### C DP, MG, CP, ALCB ####[facility] [id number] [place], [place] [phone] Director: Reji Son DO Monocytes (Bld) [#/Vol] 0.80 10*3/uL Normal 0.1-1.3 [facility] Comment on above: Performed By: #### C DP, MG, CP, ALCB ####[address], [place] [id number])[phone] Director: Reji Son DO Monocytes/100 WBC (Bld) 8 % High 1-7 [facility] Comment on above: Performed By: #### C DP, MG, CP, ALCB ####[facility] [id number] [place], [place] [phone] Director: Reji Son DO Neutrophil (Seg) 77 % High 36-66 [facility] Comment on above: Performed By: #### C DP, MG, CP, ALCB ####[facility] [id number] [place], [place] [phone] Director: Reji Son DO Platelet mean volume (Bld) [Entitic vol] 7.1 fL Normal 6.0-12.0 [facility] Comment on above: Performed By: #### C DP, MG, CP, ALCB ####[facility] [id number] [place] [address].[place] [address] Lab Director: Reji oSn DO Platelets (Bld) [#/Vol] 329 10*3/uL Normal 150-450 [facility] Comment on above: Performed By: #### C DP, MG, CP, ALCB ####[facility] [id number], [place] [phone] Director: Reji Son DO RBC (Bld) [#/Vol] 4.77 10*6/uL Normal 4.5-5.9 [facility] Comment on above: Performed By: #### C DP, MG, CP, ALCB ####[facility] [id number] [place] [address] Lab Director: Reji Son DO WBC (Bld) [#/Vol] 9.8 10*3/uL Normal 3.5-11.0 [facility] Comment on above: Performed By: #### C DP, MG, CP, ALCB ####[facility] [id number] [facility] [place] [address] Lab Director: Reji Son DO Comp Metabolic Profon 2023 ALT [Catalytic activity/Vol] U/L Low 5-41 [facility] Comment on above: Performed By: #### C DP, MG, CP, ALCB ####[facility] [id number] [place] [address] Lab Director: Reji Son DO Albumin [Mass/Vol] 4.0 g/dL Normal 3.5-5.2 [facility] Comment on above: Performed By: #### C DP, MG, CP, ALCB ####[facility] [id number] [facility], [place] [phone] Director: Reji Son DO Alkaline Phos 93 U/L Normal 40-129 [facility] Comment on above: Performed By: #### C DP, MG, CP, ALCB ####[facility] [id number] [place] [address] Lab Director: Reji Son DO Anion gap [Moles/Vol] 12 mmol/L Normal 9-17 [facility] Comment on above: Performed By: #### C DP, MG, CP, ALCB ####[facility] [id number] [place] [address] Lab Director: Reji Son DO AST [Catalytic activity/Vol] 16 U/L Normal <40 [facility] Comment on above: Performed By: #### C DP, MG, CP, ALCB ####[facility] [id number] [place] [address] lab Director: Reji Son DO Bilirubin [Mass/Vol] 0.8 mg/dL Normal 0.3-1.2 [facility] Comment on above: Performed By: #### C DP, MG, CP, ALCB ####[facility] [address] [place] [address] lab Director: Reji Son DO Calcium [Mass/Vol] 9.2 mg/dL Normal 8.6-10.4 [facility] Comment on above: Performed By: #### C DP, MG, CP, ALCB ####[facility] [address] [facility] [place] [address] Lab Director: Reji Son DO Chloride [Moles/Vol] 104 mmol/L Normal 98-107 [facility] Comment on above: Performed By: #### C DP, MG, CP, ALCB ####[facility] [address] [place] [address] lab Director: Reji Son DO CO2 [Moles/Vol] 21 mmol/L Normal 20-31 [facility] Comment on above: Performed By: #### C DP, MG, CP, ALCB ####[facility] Dvi[address] [place] [address] Lab Director: Reji Son DO Creatinine [Mass/Vol] 0.7 mg/dL Normal 0.7-1.2 [facility] Comment on above: Performed By: #### C DP, MG, CP, ALCB ####[facility] Pff[address] [place] [address] Lab Director: Reji Son DO GFR/1.73 sq M.predicted among non-blacks MDRD (S/P/Bld) [Vol rate/Area] mL/min/{1.73_m2} Normal >60 [facility] Comment on above: Result Comment: These [...] By: #### C DP, MG, CP, ALCB ####[facility] Fik[address] [place] [address] Lab Director: Reji Son DO Glucose [Mass/Vol] 161 mg/dL High 70-99 [facility] Comment on above: Performed By: #### C DP, MG, CP, ALCB ####[facility] Jkx[address] [place] [address] Lab Director: Reji Son DO Potassium [Moles/Vol] 4.0 mmol/L Normal 3.7-5.3 [facility] Comment on above: Performed By: #### C DP, MG, CP, ALCB ####[facility] Qni[address] [place] [address] Lab Director: Reji Son DO Protein [Mass/Vol] 6.5 g/dL Normal 6.4-8.3 [facility] Comment on above: Performed By: #### C DP, MG, CP, ALCB ####[facility] Zdf[address] [place], [place] [phone] Director: Reji Son DO Sodium [Moles/Vol] 137 mmol/L Normal 135-144 [facility] Comment on above: Performed By: #### C DP, MG, CP, ALCB ####[facility] Ipa7232 [place] [address] lab Director: Reji Son DO Urea nitrogen [Mass/Vol] 16 mg/dL Normal 8-23 [facility] Comment on above: Performed By: #### C DP, MG, CP, ALCB ####[address] [address] Lab Director: Reji Son DO Drug Scr, Abuse, Uron 2023 Amphetamine(s),Ur Negative Normal NEG [facility] Comment on above: Result Comment: (Positive cutoff 1000 ng/mL) Performed By: #### U AX, JABIER ####[address] [phone] Director: Reji Son DO Barbiturate(s),Ur Negative Normal NEG [facility] Comment on above: Result Comment: (Positive cutoff 200 ng/mL) Performed By: #### U AX, JABIER ####[facility] [address] [place] [address] Lab Director: Reji Son DO Benzodiazepine(s) Negative Normal NEG [facility] Comment on above: Result Comment: (Positive cutoff 200 ng/mL) Performed By: #### U AX, JABIER ####[facility] [address] [place] [address] Lab Director: Reji Son DO Cannabinoid(s),Ur Negative Normal NEG [facility] Comment on above: Result Comment: (Positive cutoff 50 ng/mL) Performed By: #### U AX, JABIER ####[facility] Mjq4392 [place] [address] Lab Director: Reji Son DO Cocaine Metabolite Negative Normal NEG [facility] Comment on above: Result Comment: (Positive cutoff 300 ng/mL) Performed By: #### U AX, JABIER ####[facility] [address] [place] [address] Lab Director: Reji Son DO Fentanyl, Urine Negative Normal [facility] Comment on above: Result Comment: (Positive cutoff 5 ng/ml) Performed By: #### U AX, JABIER ####[facility] [address] [place] [address] Lab Director: Reji Son DO Interpretive Info Assay provides medical screening only. The absence of expected drug(s) and/or Normal [facility] Comment on above: Result Comment: meta bolite(s) may indicate diluted or adulterated urine, limitations of testing or timing of collection. Testing for legal purposes should be confirmed by another method. To request confirmation of test result, please call the lab within 7 days of sample submission. Performed By: #### U AX, JABIER ####[facility] Dkn[address]82 [place] [address] Lab Director: Reji Son DO Methadone Ql (U) Negative Normal [facility] Comment on above: Result Comment: (Positive cutoff 300 ng/mL) Performed By: #### U AX, JABIER ####[facility] [address] [place] [address] Lab Director: Reji Son DO Opiate(s), Ur Negative Normal NEG [facility] Comment on above: Result Comment: (Positive cutoff 300 ng/mL) Performed By: #### U AX, JABIER ####[facility] Rtu0226 [place] [address] Lab Director: Reji Son DO Oxycodone, Urine Negative Normal NEG [facility] Comment on above: Result Comment: (Positive cutoff 100 ng/mL) Performed By: #### U AX, JABIER ####[facility] [address] [place] [address] lab Director: Reji Son DO Phencyclidine, Ur Negative Normal NEG [facility] Comment on above: Result Comment: (Positive cutoff 25 ng/mL) Performed By: #### U AX, JABIER ####[address] [address] Lab Director: Reji Son DO Ethanol Alcoholon 07-18-2023 Ethanol [Mass/Vol] mg/dL Normal <10 [facility] Comment on above: Performed By: #### C DP, MG, CP, ALCB ####[address] [address] Lab Director: Reji Son DO Ethanol percent <0.010 Normal [facility] Comment on above: Performed By: #### C DP, MG, CP, ALCB ####[facility] [address] [place] [address] lab Director: Reji Son DO Glucose,Whole Bloodon 2023 Glucose [Mass/Vol] 126 mg/dL High 75-110 [facility] Magnesiumon 07-18-2023 Magnesium [Mass/Vol] 1.8 mg/dL Normal 1.6-2.6 [facility] Comment on above: Performed By: #### C DP, MG, CP, ALCB ####[facility] Ojj8709 [place] [address] Lab Director: Reji Son DO UA w/Reflex Cultureon 2023 Bilirubin, SemiQt,Ur Negative Normal NEG [facility] Comment on above: Performed By: #### U AX, JABIER ####[facility] [address] [place] [address] Lab Director: Reji Son DO Blood, Urine Negative Normal NEG [facility] Comment on above: Performed By: #### U AX, JABIER ####[facility] [address] [place] [address] [phone] Director: Reji Son DO Clarity (U) Clear Normal CLEAR [facility] Comment on above: Performed By: #### U AX, JABIER ####[facility] [address] [place] [address] Lab Director: Reji Son DO Color (U) Yellow Normal YEL [facility] Comment on above: Performed By: #### U AX, JABIER ####[facility] [address] [place] [address] [phone] Director: Reji Son DO Comment Microscopic exam not performed based on chemical results unless requested in Normal [facility] Comment on above: Result Comment: orig inal order. Performed By: #### U AX, JABIER ####[facility] Zou[address] [place] [address] Lab Director: Reji Son DO Glucose Ql (U) Negative Normal NEG [facility] Comment on above: Performed By: #### U AX, JABIER ####[facility] [address] [place] [address] [phone] Director: Reji Son DO Ketones Ql (U) TRACE Abnormal NEG [facility] Comment on above: Performed By: #### U AX, JABIER ####[facility] Ffi[address] [facility], [place] [phone] Director: Reji Son DO Leukocyte esterase Test strip Ql (U) Negative Normal NEG [facility] Comment on above: Performed By: #### U AX, JABIER ####[facility] [address] [place] [address] [phone] Director: Reji Son DO Nitrite,Ur Negative Normal NEG [facility] Comment on above: Performed By: #### U AX, JABIER ####[facility] [address] [place] [address] [phone] Director: Reji Son DO PH,Ur 5.5 Normal 5.0-8.0 [facility] Comment on above: Performed By: #### U AX, JABIER ####[facility] Fvy[address] [place], [place] [phone] Director: Reji Son DO Protein Ql (U) Negative Normal NEG [facility] Comment on above: Performed By: #### U AX, JABIER ####[address] [address] Lab Director: Reji Son DO Spec. Sudan,Ur 1.011 Normal 1.000-1.030 [facility] Comment on above: Performed By: #### U AX, JABIER ####[facility] [address] [place] [address] [phone] Director: Reji Son DO Urobilinogen,Ur Normal Normal 0.0-1.0 [facility] Comment on above: Performed By: #### U AX, JABIER ####[facility] [address] [place] [address] lab Director: Reji Son DO Basic Metab w/rfx MGon 06-16 Anion gap [Moles/Vol] 11 mmol/L Normal 9-17 [facility] Comment on above: Performed By: #### B MPX, CDP ####[facility] [address] [facility].[place], [place] [phone] Director: Reji Son DO Calcium [Mass/Vol] 8.6 mg/dL Normal 8.6-10.4 [facility] Comment on above: Performed By: #### B MPX, CDP ####[facility] [address]br[address] [facility], [place] [phone] Director: Reji Son DO Chloride [Moles/Vol] 103 mmol/L Normal 98-107 [facility] Comment on above: Performed By: #### B MPX, CDP ####[facility] Tqv[address] [place] [address] lab Director: Reji Son DO CO2 [Moles/Vol] 23 mmol/L Normal 20-31 [facility] Comment on above: Performed By: #### B MPX, CDP ####[facility] Otn[address] [place] [address] lab Director: Reji Son DO Creatinine [Mass/Vol] 0.9 mg/dL Normal 0.7-1.2 [facility] Comment on above: Performed By: #### B MPX, CDP ####[facility] Siq[address] [facility], [place] [phone] Director: Reji Son DO GFR/1.73 sq M.predicted among non-blacks MDRD (S/P/Bld) [Vol rate/Area] mL/min/{1.73_m2} Normal >60 [facility] Comment on above: Result Comment: These [...] renal tubular secretion. Performed By: #### B DAVIDX, CDP ####[facility] Mwm[address]16 [facility], [place] [phone] Director: Reji Son DO Glucose [Mass/Vol] 181 mg/dL High 70-99 [facility] Comment on above: Performed By: #### B MARGI, CDP ####[facility] Mtj[address] [facility], [place] [phone] Director: Reji Son DO Potassium [Moles/Vol] 4.6 mmol/L Normal 3.7-5.3 [facility] Comment on above: Performed By: #### B DAVIDX, CDP ####[facility] Btq[address] [facility], [place] [phone] Director: Reji Son DO Sodium [Moles/Vol] 137 mmol/L Normal 135-144 [facility] Comment on above: Performed By: #### B MARGI, CDP ####[facility] Uhf[address] [facility], [place] [phone] Director: Reji Son DO Urea nitrogen [Mass/Vol] 13 mg/dL Normal 8-23 [facility] Comment on above: Performed By: #### B MARGI, CDP ####[facility] [address] [place] [address].[place], [place] [phone] Director: Reji Son DO Basic Metabolic Panel w/ Ref melina to MGon 06-17-2023 Anion gap [Moles/Vol] 11 mmol/L 9 - 17 mmol/L [facility] Calcium [Mass/Vol] 8.6 mg/dL 8.6 [...] 13 mg/dL 8 - 23 mg/dL [facility] CBC with Auto Differentialon 06-17-2023 Basophils [...] CENTER WBC other (Bld) [#/Vol] 7.6 [facility] CBC with Diffon 06-17-2023 Abs. Basophil 0.10 k/uL Normal 0.0-0.2 [facility] Comment on above: Performed By: #### B MPX, CDP ####[facility] Faq[address]53 [place] [address] Lab Director: Reji Son DO Abs.Neutrophil (Seg) 5.30 k/uL Normal 1.3-9.1 [facility] Comment on above: Performed By: #### B MPX, CDP ####[facility] Sms[address]32 [place] [address] lab Director: Reji Son DO Basophils/100 WBC (Bld) 1 % Normal 0-2 [facility] Comment on above: Performed By: #### Tommy MPX, CDP ####[facility] [address] [place] [address] Lab Director: Reji Son DO Eosinophils (Bld) [#/Vol] 0.20 10*3/uL Normal 0.0-0.4 [facility] Comment on above: Performed By: #### B MPX, CDP ####[facility] [address] [place] [address] Lab Director: Reji Son DO Eosinophils/100 WBC (Bld) 2 % Normal 0-4 [facility] Comment on above: Performed By: #### Tommy MPX, CDP ####[address] [place] [address] Lab Director: Reji Son DO Erythrocyte distribution width (RBC) [Ratio] 13.6 % Normal 11.5-14.9 [facility] Comment on above: Performed By: #### Tommy MPX, CDP ####[facility] [address]zx[address] [facility] [place] [address] Lab Director: Reji Son DO Hematocrit (Bld) [Volume fraction] 46.3 % Normal 41-53 [facility] Comment on above: Performed By: #### B MPX, CDP ####[facility] Jkl[address] [place] [address] Lab Director: Reji Son DO Hemoglobin (Bld) [Mass/Vol] 14.9 g/dL Normal 13.5-17.5 [facility] Comment on above: Performed By: #### Tommy MPX, CDP ####[facility] [address] [facility] [place] [address] Lab Director: Reji Son DO Lymphocytes (Bld) [#/Vol] 1.30 10*3/uL Normal 1.0-4.8 [facility] Comment on above: Performed By: #### Tommy HERNANDEZX, CDP ####[facility] [address] [place] [address] Lab Director: Reji Son DO Lymphocytes/100 WBC (Bld) 17 % Low 24-44 [facility] Comment on above: Performed By: #### Tommy HERNANDEZX, CDP ####[facility] Wln[address] [facility], [place] [phone] Director: Reji Son DO MCH (RBC) [Entitic mass] 29.2 pg Normal 26-34 [facility] Comment on above: Performed By: #### Tommy KISER, CDP ####[facility] Npe[address] [facility], [place] [phone] Director: Reji Son DO MCHC (RBC) [Mass/Vol] 32.1 g/dL Normal 31-37 [facility] Comment on above: Performed By: #### Tommy KISER, CDP ####[facility] Vzf[address] [facility], [place] [phone] Director: Reji Son DO MCV (RBC) [Entitic vol] 90.9 fL Normal 80-100 [facility] Comment on above: Performed By: #### Tommy MPX, CDP ####[facility] Rxa[address] [facility], [place] [phone] Director: Reji Son DO Monocytes (Bld) [#/Vol] 0.70 10*3/uL Normal 0.1-1.3 [facility] Comment on above: Performed By: #### Tommy MPX, CDP ####[facility] Gko[address] [facility], [place] [phone] Director: Reji Son DO Monocytes/100 WBC (Bld) 10 % High 1-7 [facility] Comment on above: Performed By: #### Tommy MPX, CDP ####[facility] [address], [place] [phone] Director: Reji Son DO Neutrophil (Seg) 70 % High 36-66 [facility] Comment on above: Performed By: #### B MPX, CDP ####[facility] [address], [place] [phone] Director: Reji Son DO Platelet mean volume (Bld) [Entitic vol] 7.3 fL Normal 6.0-12.0 [facility] Comment on above: Performed By: #### Tommy MPX, CDP ####[facility] Mow[address] [facility], [place] [phone] Director: Reji Son DO Platelets (Bld) [#/Vol] 343 10*3/uL Normal 150-450 [facility] Comment on above: Performed By: #### Tommy HERNANDEZX, CDP ####[facility] [address], [place] [phone] Director: Reji Son DO RBC (Bld) [#/Vol] 5.09 10*6/uL Normal 4.5-5.9 [facility] Comment on above: Performed By: #### B MPX, CDP ####[facility] Qwf[address] [facility] [place] [address] Lab Director: Reji Son DO WBC (Bld) [#/Vol] 7.6 10*3/uL Normal 3.5-11.0 [facility] Comment on above: Performed By: #### B MPX, CDP ####[facility] [address] [facility] [place] [address] lab Director: Reji Son DO Cortisolon 06-17-2023 Cortisol 20.2 ug/dL High 2.5-19.5 [facility] Comment on above: Result Comment: Cortisol Reference Range: AM 6.0-18.4 PM 2.7-10.5 Performed By: #### T SH ####[facility] [address] [place] [address] lab Director: Reji Son DO#### T4, CORTI ####[facility] [place] [address] lab Director: Norberto Condon MD EEG awake and asleepon 06-16 Nash Sanders MD 06/17/2023 4:40 PM EEG REPORT CLINICAL NEUROPHYSIOLOGY LABORATORY DEPARTMENT OF NEUROLOGY [facility] Patient: Susie Boyce Age: 72 y.o. [...] bolus 10% 125 mL 125 mL IntraVENous Rodriguez Aparicio MD Or dextrose bolus 10% 250 mL 250 mL IntraVENous Rodriguez Aparicio MD glucagon injection 1 mg 1 mg SubCUTAneous Rodriguez Aparicio MD dextrose 10 % infusion IntraVENous Continuous Rodriguez Aparicio MD Technical Description: This is a 21 [...] epileptiform abnormalities were seen. Nash Sanders MD [facility] EEG awake and asleepOrdered By: Nash Sanders on 06-17-2023 [facility] Work Phone: Glucose,Whole Bloodon 2023 Glucose [Mass/Vol] 184 mg/dL High 75-110 [facility] Glucose [Mass/Vol] 167 mg/dL High 75-110 [facility] Glucose [Mass/Vol] 178 mg/dL High 75-110 [facility] POC Glucose Fingerstickon Glucose [Mass/Vol] 184 mg/dL High 75 - 110 mg/dL [facility] Interpretation and review of laboratory results Abnormal [facility] Glucose [Mass/Vol] 167 mg/dL High 75 - 110 mg/dL [facility] Interpretation and review of laboratory results Abnormal [facility] Glucose [Mass/Vol] 178 mg/dL High 75 - 110 mg/dL [facility] Interpretation and review of laboratory results Abnormal [facility] T4on 06-17-2023 T4 [Mass/Vol] 7.2 ug/dL 4.5 - 11.7 ug/dL [facility] TSHon 06-17-2023 TSH Qn 1.53 m[IU]/L [facility] Thyroid Stim. Horm.on 2023 Thyroid Stim. Horm. 1.53 uIU/mL Normal 0.30-5.00 [facility] Comment on above: Performed By: #### T SH ####[facility] S[address] [place] [address] [facility] Director: Reji Son DO#### T4, CORTI ####[address] [place] [address] lab Director: Norberto Condon MD Thyroxine T4on 06-17-2023 T4 [Mass/Vol] 7.2 ug/dL Normal 4.5-11.7 [facility] Comment on above: Performed By: #### T SH ####[facility] Tjo[address]46 [place] [address] lab Director: Reji Son DO#### T4, CORTI ####[address] [address] lab Director: Norberto Condon MD Basic Metabolic Panelon 05-29 Anion gap [Moles/Vol] 9 mmol/L 9 - 17 mmol/L [facility] Calcium [Mass/Vol] 9.0 mg/dL 8.6 - 10. 4 mg/dL [facility] Chloride [Moles/Vol] 103 mmol/L 98 - 10 7 mmol/L [facility] CO2 [Moles/Vol] 26 mmol/L 20 - 31 mmol/L [facility] Creatinine [Mass/Vol] 0.8 mg/dL 0.7 - 1.2 mg/dL [facility] [...] 14 mg/dL 8 - 23 mg/dL [facility] Basic Metabolic Profon 06-15 Anion gap [Moles/Vol] 9 mmol/L Normal 9-17 [facility] Comment on above: Performed By: #### B FLAT IRONER, CDP, BMP, TROPI ####[facility] [address] [place] [address] Lab Director: Reji Son DO Calcium [Mass/Vol] 9.0 mg/dL Normal 8.6-10.4 [facility] Comment on above: Performed By: #### B FLAT IRONER, CDP, BMP, TROPI ####[facility] [address] [place] [address] Lab Director: Reji Son DO Chloride [Moles/Vol] 103 mmol/L Normal 98-107 [facility] Comment on above: Performed By: #### B FLAT IRONER, CDP, BMP, TROPI ####[facility] Vza[address] [place] [address] Lab Director: Reji Son DO CO2 [Moles/Vol] 26 mmol/L Normal 20-31 [facility] Comment on above: Performed By: #### B FLAT IRONER, CDP, BMP, TROPI ####[facility] Gig[address] [place] [address] Lab Director: Reji Son DO Creatinine [Mass/Vol] 0.8 mg/dL Normal 0.7-1.2 [facility] Comment on above: Performed By: #### B FLAT IRONER, CDP, BMP, TROPI ####[facility] [address] [place] [address] Lab Director: Reji Son DO GFR/1.73 sq M.predicted among non-blacks MDRD (S/P/Bld) [Vol rate/Area] mL/min/{1.73_m2} Normal >60 [facility] Comment on above: Result Comment: These [...] renal tubular secretion. Performed By: #### B FLAT IRONER, CDP, BMP, TROPI ####[facility] Roa[address] [place] [address] Lab Director: Reji Son DO Glucose [Mass/Vol] 91 mg/dL Normal 70-99 [facility] Comment on above: Performed By: #### B FLAT IRONER, CDP, BMP, TROPI ####[facility] Pfv[address] [place] [address] Lab Director: Reji Son DO Potassium [Moles/Vol] 4.2 mmol/L Normal 3.7-5.3 [facility] Comment on above: Performed By: #### B FLAT IRONER, CDP, BMP, TROPI ####[facility] Qtj[address] [place] [address] Lab Director: Reji Son DO Sodium [Moles/Vol] 138 mmol/L Normal 135-144 [facility] Comment on above: Performed By: #### B FLAT IRONER, CDP, BMP, TROPI ####[facility] Huc[address] [place] [address] Lab Director: Reji Son DO Urea nitrogen [Mass/Vol] 14 mg/dL Normal 8-23 [facility] Comment on above: Performed By: #### B FLAT IRONER, CDP, BMP, TROPI ####[facility] G[address] [facility], [place] [phone] Director: Reji Son DO Brain Natri. Peptideon 06-15 Natriuretic peptide B (Bld) [Mass/Vol] 105 pg/mL Normal <300 [facility] Comment on above: Result Comment: An age-independent cutoff point of 300 pg/ml has a 98% negative predictive value excluding acute heart failure. Performed By: #### B FLAT IRONER, CDP, BMP, TROPI ####[facility] Beo[address] [place] [address] Lab Director: Reji Son DO Brain Natriuretic [...] CENTER WBC other (Bld) [#/Vol] 7.5 [facility] CBC with Diffon 06-16-2023 Abs. Basophil 0.00 k/uL Normal 0.0-0.2 [facility] Comment on above: Performed By: #### B FLAT IRONER, CDP, BMP, TROPI ####[facility] [address] [place] [address] [facility] Director: Fanelly, Reji, DO Abs.Neutrophil (Seg) 5.60 k/uL Normal 1.3-9.1 [facility] Comment on above: Performed By: #### B FLAT IRONER, CDP, BMP, TROPI ####[facility] [address], [place] [phone] Director: Reji Son DO Basophils/100 WBC (Bld) 1 % Normal 0-2 [facility] Comment on above: Performed By: #### B FLAT IRONER, CDP, BMP, TROPI ####[facility] [address], [place] [phone] Director: Reji Son DO Eosinophils (Bld) [#/Vol] 0.20 10*3/uL Normal 0.0-0.4 [facility] Comment on above: Performed By: #### B FLAT IRONER, CDP, BMP, TROPI ####[facility] [address], [place] [phone] Director: Reji Son DO Eosinophils/100 WBC (Bld) 2 % Normal 0-4 [facility] Comment on above: Performed By: #### B FLAT IRONER, CDP, BMP, TROPI ####[facility] [address] [facility].[place], [place] [phone] Director: Reji Son DO Erythrocyte distribution width (RBC) [Ratio] 14.1 % Normal 11.5-14.9 [facility] Comment on above: Performed By: #### B FLAT IRONER, CDP, BMP, TROPI ####[facility] [address], [place] [phone] Director: Reji Son DO Hematocrit (Bld) [Volume fraction] 46.1 % Normal 41-53 [facility] Comment on above: Performed By: #### B FLAT IRONER, CDP, BMP, TROPI ####[facility] [address] [id number] Lab Director: Reji Son DO Hemoglobin (Bld) [Mass/Vol] 15.0 g/dL Normal 13.5-17.5 [facility] Comment on above: Performed By: #### B FLAT IRONER, CDP, BMP, TROPI ####[facility] [id number] [facility].[place], [place] [phone] Director: Reji Son DO Lymphocytes (Bld) [#/Vol] 1.00 10*3/uL Normal 1.0-4.8 [facility] Comment on above: Performed By: #### B FLAT IRONER, CDP, BMP, TROPI ####[facility] [id number] [place] [address].[place], [place] [phone] Director: Reji Son DO Lymphocytes/100 WBC (Bld) 14 % Low 24-44 [facility] Comment on above: Performed By: #### B FLAT IRONER, CDP, BMP, TROPI ####[facility] [id number] [facility], [place] [phone] Director: Reji Son DO MCH (RBC) [Entitic mass] 29.5 pg Normal 26-34 [facility] Comment on above: Performed By: #### B FLAT IRONER, CDP, BMP, TROPI ####[facility] [id number] [facility], [place] [phone] Director: Reji Son DO MCHC (RBC) [Mass/Vol] 32.5 g/dL Normal 31-37 [facility] Comment on above: Performed By: #### B FLAT IRONER, CDP, BMP, TROPI ####[facility] [address] [place] [address].[place], [place] [phone] Director: Reji Son DO MCV (RBC) [Entitic vol] 90.5 fL Normal 80-100 [facility] Comment on above: Performed By: #### B FLAT IRONER, CDP, BMP, TROPI ####[facility] [id number] [place] [address] Lab Director: Reji Son DO Monocytes (Bld) [#/Vol] 0.70 10*3/uL Normal 0.1-1.3 [facility] Comment on above: Performed By: #### B FLAT IRONER, CDP, BMP, TROPI ####[facility] [id number], [place] [phone] Director: Reji Son DO Monocytes/100 WBC (Bld) 9 % High 1-7 [facility] Comment on above: Performed By: #### B FLAT IRONER, CDP, BMP, TROPI ####[facility] [id number], [place] [phone] Director: Reji Son DO Neutrophil (Seg) 74 % High 36-66 [facility] Comment on above: Performed By: #### B FLAT IRONER, CDP, BMP, TROPI ####[facility] [id number] [facility] [place] [address] Lab Director: Reji Son DO Platelet mean volume (Bld) [Entitic vol] 7.4 fL Normal 6.0-12.0 [facility] Comment on above: Performed By: #### B FLAT IRONER, CDP, BMP, TROPI ####[facility] [id number] [facility], [place] [phone] Director: Reji Son DO Platelets (Bld) [#/Vol] 342 10*3/uL Normal 150-450 [facility] Comment on above: Performed By: #### B FLAT IRONER, CDP, BMP, TROPI ####[facility] [id number], [place] [phone] Director: Reji Son DO RBC (Bld) [#/Vol] 5.09 10*6/uL Normal 4.5-5.9 [facility] Comment on above: Performed By: #### B FLAT IRONER, CDP, BMP, TROPI ####[facility] [address] [place] [address] lab Director: Reji Son DO WBC (Bld) [#/Vol] 7.5 10*3/uL Normal 3.5-11.0 [facility] Comment on above: Performed By: #### B FLAT IRONER, CDP, BMP, TROPI ####[facility] [address] [place] [address] lab Director: Reji Son DO Glucose,Whole Bloodon 2023 Glucose [Mass/Vol] 171 mg/dL High 75-110 [facility] Glucose [Mass/Vol] 92 mg/dL Normal 75-110 [facility] POC Glucose Fingerstickon Glucose [Mass/Vol] 171 mg/dL High 75 - 110 mg/dL [facility] Interpretation and review of laboratory results Abnormal [facility] Glucose [Mass/Vol] 92 mg/dL 75 - 110 mg/dL [facility] Portable XR Chest AP single viewon 06-16-2023 No acute airspace disease identified. [facility] CONSOLIDATED EXAMINATION: ONE XRAY VIEW OF THE CHEST 06/16/2023 11:47 am COMPARISON: None. HISTORY: ORDERING SYSTEM PROVIDED HISTORY: chest pain, syncope TECHNOLOGIST PROVIDED HISTORY: chest pain, syncope Reason for Exam: chest pain, syncope FINDINGS: The cardiomediastinal silhouette is within normal limits. There is no consolidation, pneumothorax or evidence for edema. No evidence for effusion. No acute osseous abnormality is identified. [facility] RIS CONSOLIDATED Betito Williamson MD - 06/16/2023 EXAMINATION: [...] Troponin, High Sens 15 ng/L Normal 0-22 [facility] Comment on above: Result Comment: High Sensitivity Troponin values cannot be compared with other Troponin methodologies. Performed By: #### T ROPI ####[facility] [id number] [place] [address] [facility] Director: Reji Son DO Troponin I.cardiac High sensitivity method [Mass/Vol] 17 ng/L 0 - 22 ng/L [facility] Comment on above: High Sensitivity Tro ponin values cannot be compared with other Troponin methodologies. [facility] Troponin, High Sens 17 ng/L Normal 0-22 [facility] Comment on above: Result Comment: High Sensitivity Troponin values cannot be compared with other Troponin methodologies. Performed By: #### B FLAT IRONER, CDP, BMP, TROPI ####[facility] [id number] [place] [address] [facility] Director: Reji Son DO XR CHEST PORTABLEon 06-16-19 24 XR CHEST PORTABLE EXAMINATION: ONE XRAY VIEW [...] Betito Williamson MD 06/16/23 Final result Normal [facility] BASIC METABOLIC PANLon 04-20 Anion gap [Moles/Vol] 9 mmol/L Normal 5-15 [facility] Comment on above: Performed By: #### C BCA, BMP, 3040-3, LIVR #### [facility] ([id number]) [address] [place] [address] Calcium [Mass/Vol] 8.6 mg/dL Normal 8.5-10.[address] [facility] Comment on above: Performed By: #### C BCA, BMP, 3040-3, LIVR #### [facility] ([id number]) [address] [place] [address] Chloride [Moles/Vol] 104 mmol/L Normal 98-109 [facility] Comment on above: Performed By: #### C BCA, BMP, 3040-3, LIVR #### [facility] ([id number]) [address] [place] [address] CO2 [Moles/Vol] 24 mmol/L Normal 22-32 [facility] Comment on above: Performed By: #### C BCA, BMP, 3040-3, LIVR #### [facility] ([id number]) [address] [place] [address] Creatinine [Mass/Vol] 0.87 mg/dL Normal 0.60-1.30 [facility] Comment on above: Result Comment: METH OD TRACEABLE TO IDMS STANDARD Performed By: #### C BCA, BMP, 3040-3, LIVR #### [facility] ([id number]) [address] [place] [address] eGFR (CKD-EPI) NON-RACE DEPENDENT >90 Normal >59 [facility] Comment on above: Result Comment: Reported eGFR is based on the CKD-EPI 2020 equation that does not use a race coefficient. Performed By: #### C MARIA ISABEL BMP, 3040-3, LIVR #### [facility] ([id number]) [address], [address] [place] [address] Glucose [Mass/Vol] 178 mg/dL High 65-[address] [facility] Comment on above: Performed By: #### C MARIA ISABEL BMP, 3040-3, LIVR #### [facility] ([id number]) [address], [facility] [address] [place] [address] Potassium [Moles/Vol] 4.3 mmol/L Normal 3.5-5.0 [facility] Comment on above: Performed By: #### C MARIA ISABEL BMP, 304-3, LIVR #### [facility] ([id number]) [address], [address] [place] [address] Sodium [Moles/Vol] 137 mmol/L Normal 134-[address] [facility] Comment on above: Performed By: #### C MARIA ISABEL BMP, 3039-3, LIVR #### [facility] ([id number]) [address], [facility] [address] [place] [address] Urea nitrogen [Mass/Vol] 16 mg/dL Normal 5-27 [facility] Comment on above: Performed By: #### C MARIA ISABEL BMP, 0-3, LIVR #### [facility] ([id number]) [address], [facility] [address] [place] [address] CBC AND AUTO DIFFon 04-20- 24 ABSOLUTE BASOPHIL 0.1 X10E9/L Normal 0.0-0.[address] [facility] Comment on above: Performed By: #### C MARIA ISABEL, BMP, 3040-3, LIVR #### [facility] ([id number]) [address], [facility] [address] [place] [address] ABSOLUTE NEUTROPHIL 9.9 X10E9/L High 1.5-6.6 [facility] Comment on above: Performed By: #### C BCA, BMP, 0-3, LIVR #### [facility] ([id number]) [address], [address] [place] [address] Basophils/100 WBC (Bld) 0.5 % Normal [facility] Comment on above: Performed By: #### C BCA, BMP, 3039-3, LIVR #### [facility] ([id number]) [address], [address] [place] [address] Eosinophils (Bld) [#/Vol] 0.2 10*3/uL Normal 0.0-0.4 [facility] Comment on above: Performed By: #### C BCA, BMP, 3039-3, LIVR #### [facility] ([id number]) [address] [place] [address] Eosinophils/100 WBC (Bld) 1.7 % Normal [facility] Comment on above: Performed By: #### C BCA, BMP, 3039-3, LIVR #### [facility] ([id number]) [address] [place] [address] Erythrocyte distribution width (RBC) [Ratio] 13.4 % Normal 11.5-15.0 [facility] Comment on above: Performed By: #### C BCA, BMP, 3039-3, LIVR #### [facility] ([id number]) [address] [place] [address] Hematocrit (Bld) [Volume fraction] 46.4 % Normal 39-49 [facility] Comment on above: Performed By: #### C BCA, BMP, 0-3, LIVR #### [facility] ([id number]) [address], [address] [place] [address] Hemoglobin (Bld) [Mass/Vol] 15.6 g/dL Normal 13.0-17.0 [facility] Comment on above: Performed By: #### C MARIA ISABEL BMP, 3039-04, LIVR #### [facility] ([id number]) [address] [place] [address] Lymphocytes (Bld) [#/Vol] 1.5 10*3/uL Normal 1.0-3.5 [facility] Comment on above: Performed By: #### C MARIA ISABEL, BMP, 3, LIVR #### [facility] ([id number]) [address] [place] [address] Lymphocytes/100 WBC (Bld) 12.3 % Normal [facility] Comment on above: Performed By: #### C MARIA ISABEL, BMP, 3039-04, LIVR #### [facility] ([id number]) [address], [address] [place] [address] MCH (RBC) [Entitic mass] 29.8 pg Normal 27-34 [facility] Comment on above: Performed By: #### C MARIA ISABEL, BMP, 3039-04, LIVR #### [facility] ([id number]) [address] [place] [address] MCHC (RBC) [Mass/Vol] 33.6 g/dL Normal 32-36 [facility] Comment on above: Performed By: #### C MARIA ISABEL, BMP, 3, LIVR #### [facility] ([id number]) [address] [place] [address] MCV (RBC) [Entitic vol] 89 fL Normal 80-100 [facility] Comment on above: Performed By: #### C MARIA ISABEL, BMP, 3039-04, LIVR #### [facility] ([id number]) [address], [address] [place] [address] Monocytes (Bld) [#/Vol] 0.9 10*3/uL Normal 0-0.9 [facility] Comment on above: Performed By: #### C MARIA ISABEL, BMP, 3040-3, LIVR #### [facility] ([id number]) [address], [address] [place] [address] Monocytes/100 WBC (Bld) 7.0 % Normal [facility] Comment on above: Performed By: #### C MARIA ISABEL, BMP, 3040-3, LIVR #### [facility] ([id number]) [address], [address] [place] [address] Neutrophils/100 WBC (Bld) 78.5 % Normal [facility] Comment on above: Performed By: #### C MARIA ISABEL, BMP, 3040-3, LIVR #### [facility] ([id number]) [address], [address] [place] [address] Platelet mean volume (Bld) [Entitic vol] 7.4 fL Normal 7-12 [facility] Comment on above: Performed By: #### C MARIA ISABEL, BMP, 3040-3, LIVR #### [facility] ([id number]) [address] [place] [address] Platelets (Bld) [#/Vol] 442 10*3/uL Normal 150-450 [facility] Comment on above: Performed By: #### C MARIA ISABEL, BMP, 3040-3, LIVR #### [facility] ([id number]) [address] [place] [address] RBC COUNT 5.23 X10E12/L Normal 4.10-5.70 [facility] Comment on above: Performed By: #### C BCA, BMP, 3040-3, LIVR #### [facility] ([id number]) [address], [address] [place] [address] WBC (Bld) [#/Vol] 12.5 10*3/uL High 4.0-11.0 [facility] Comment on above: Performed By: #### C BCA, BMP, 3040-3, LIVR #### [facility] ([id number]) [address] [place] [address] Glucose Glucometer (BldC) [M ass/Vol]on 04-20-2023 Glucose [Mass/Vol] 269 mg/dL High 65-[address] [facility] Glucose [Mass/Vol] 162 mg/dL High 65-[address] [facility] BASIC METABOLIC PANLon 04-19 Anion gap [Moles/Vol] 12 mmol/L Normal 5-15 [facility] Comment on above: Performed By: #### C MARIA ISABEL, BMP, 3040-3, LIVR #### [facility] ([id number]) [address] [place] [address] Calcium [Mass/Vol] 9.2 mg/dL Normal 8.5-10.[address] [facility] Comment on above: Performed By: #### C BCA, BMP, 3040-3, LIVR #### [facility] ([id number]) [address], [address] [place] [address] Chloride [Moles/Vol] 103 mmol/L Normal 98-109 [facility] Comment on above: Performed By: #### C BCA, BMP, 3040-3, LIVR #### [facility] ([id number]) [address], [address] [place] [address] CO2 [Moles/Vol] 25 mmol/L Normal 22-32 [facility] Comment on above: Performed By: #### C BCA, BMP, 3040-3, LIVR #### [facility] ([id number]) [address], [address] [place] [address] Creatinine [Mass/Vol] 0.93 mg/dL Normal 0.60-1.30 [facility] Comment on above: Result Comment: METH OD TRACEABLE TO IDMS STANDARD Performed By: #### C BCA, BMP, 3040-3, LIVR #### [facility] ([id number]) [address], [facility] [address] [place] [address] GFR/1.73 sq M.predicted among non-blacks MDRD (S/P/Bld) [Vol rate/Area] 87 mL/min/{1.73_m2} Normal >59 [facility] Comment on above: Result Comment: Reported eGFR is based on the CKD-EPI 2020 equation that does not use a race coefficient. Performed By: #### C MARIA ISABEL, BMP, 3040-3, LIVR #### [facility] ([id number]) [address], [address] [address] Glucose [Mass/Vol] 129 mg/dL High 65-[address] [facility] Comment on above: Performed By: #### C MARIA ISABEL, BMP, 3040-3, LIVR #### [facility] ([id number]) [address], [address] [address] Potassium [Moles/Vol] 3.8 mmol/L Normal 3.5-5.0 [facility] Comment on above: Performed By: #### C BCA, BMP, 3040-3, LIVR #### [facility] ([id number]) [address] [address] Sodium [Moles/Vol] 140 mmol/L Normal 134-[address] [facility] Comment on above: Performed By: #### C BCA, BMP, 3040-3, LIVR #### [facility] ([id number]) [address] [address] Urea nitrogen [Mass/Vol] 14 mg/dL Normal 5-27 [facility] Comment on above: Performed By: #### C BCA, BMP, 3040-3, LIVR #### [facility] ([id number]) [address], [address] [address] CBC AND AUTO DIFFon 02-20-20 24 ABSOLUTE BASOPHIL 0.0 X10E9/L Normal 0.0-0.[address] [facility] Comment on above: Performed By: #### C DARREN NICOLAS, 3040-3, LIVR #### [facility] ([id number]) [address], [address] [place] [address] ABSOLUTE NEUTROPHIL 10.0 X10E9/L High 1.5-6.6 [facility] Comment on above: Performed By: #### C DARREN NICOLAS, 0-3, LIVR #### [facility] ([id number]) [address], [address] [address] Basophils/100 WBC (Bld) 0.2 % Normal [facility] Comment on above: Performed By: #### C DARREN NICOLAS, 3039-3, LIVR #### [facility] ([id number]) [address], [facility] [address] [place] [address] Eosinophils (Bld) [#/Vol] 0.2 10*3/uL Normal 0.0-0.4 [facility] Comment on above: Performed By: #### C MARIA ISABEL BMP, 3039-3, LIVR #### [facility] ([id number]) [address] [address] Eosinophils/100 WBC (Bld) 1.4 % Normal [facility] Comment on above: Performed By: #### C MARIA ISABEL, BMP, 0-3, LIVR #### [facility] ([id number]) [address] [address] [place] [address] Erythrocyte distribution width (RBC) [Ratio] 13.4 % Normal 11.5-15.0 [facility] Comment on above: Performed By: #### C MARIA ISABEL BMP, 0-3, LIVR #### [facility] ([id number]) [address], [facility] [address] [place] [address] Hematocrit (Bld) [Volume fraction] 46.3 % Normal 39-49 [facility] Comment on above: Performed By: #### C MARIA ISABEL, BMP, 3040-3, LIVR #### [facility] ([id number]) [address], [facility] [address] [place] [address] Hemoglobin (Bld) [Mass/Vol] 15.6 g/dL Normal 13.0-17.0 [facility] Comment on above: Performed By: #### C MARIA ISABEL, BMP, 0-3, LIVR #### [facility] ([id number]) [address] [address] [place] [address] Lymphocytes (Bld) [#/Vol] 1.7 10*3/uL Normal 1.0-3.5 [facility] Comment on above: Performed By: #### C MARIA ISABEL, BMP, 3039-3, LIVR #### [facility] ([id number]) [address], [facility] [address] [place] [address] Lymphocytes/100 WBC (Bld) 13.3 % Normal [facility] Comment on above: Performed By: #### C BCA, BMP, 3039-3, LIVR #### [facility] ([id number]) [address] [address] [place] [address] MCH (RBC) [Entitic mass] 30.1 pg Normal 27-34 [facility] Comment on above: Performed By: #### C BCA, BMP, 0-3, LIVR #### [facility] ([id number]) [address], [facility] [address] [place] [address] MCHC (RBC) [Mass/Vol] 33.7 g/dL Normal 32-36 [facility] Comment on above: Performed By: #### C MARIA ISABEL, BMP, 3040-3, LIVR #### [facility] ([id number]) [address] [place] [address] MCV (RBC) [Entitic vol] 89 fL Normal 80-100 [facility] Comment on above: Performed By: #### C MARIA ISABEL BMP, 3040-3, LIVR #### [facility] ([id number]) [address] [place] [address] Monocytes (Bld) [#/Vol] 1.0 10*3/uL High 0-0.9 [facility] Comment on above: Performed By: #### C MARIA ISABEL, BMP, 0-3, LIVR #### [facility] ([id number]) [address], [facility] [address] [place] [address] Monocytes/100 WBC (Bld) 7.9 % Normal [facility] Comment on above: Performed By: #### Racheal NICOLAS, BMP, 3039-3, LIVR #### [facility] ([id number]) [address] [place] [address] Neutrophils/100 WBC (Bld) 77.2 % Normal [facility] Comment on above: Performed By: #### Racheal NICOALS, BMP, 3039-, LIVR #### [facility] ([id number]) [address], [address] [place] [address] Platelet mean volume (Bld) [Entitic vol] 7.2 fL Normal 7-12 [facility] Comment on above: Performed By: #### C MARIA ISABEL, BMP, 0-3, LIVR #### [facility] ([id number]) [address], [facility] [address] [place] [address] Platelets (Bld) [#/Vol] 470 10*3/uL High 150-450 [facility] Comment on above: Performed By: #### C MARIA ISABEL, BMP, 3040-3, LIVR #### [facility] ([id number]) [address] [place] [address] RBC COUNT 5.20 X10E12/L Normal 4.10-5.70 [facility] Comment on above: Performed By: #### C BCA, BMP, 3040-3, LIVR #### [facility] ([id number]) [address] [facility], [address] [place] [address] WBC (Bld) [#/Vol] 12.9 10*3/uL High 4.0-11.0 [facility] Comment on above: Performed By: #### C BCA, BMP, 3040-3, LIVR #### [facility] ([id number]) [address] [place] [address] Glucose Glucometer (BldC) [M ass/Vol]on 04-19-2023 Glucose [Mass/Vol] 232 mg/dL High 65-[address] [facility] Glucose [Mass/Vol] 123 mg/dL High 65-[address] [facility] Glucose [Mass/Vol] 129 mg/dL High 65-[address] [facility] Surgical Pathologyon 024 Surgical Pathology Normal [facility] Comment on above: Result Comment: [facility] [address] [place] [address] Surgical Pathology Consultation Patient Name:SUSIE BOYCE:1950 (Age: 72)Gender:MTaken:4Reported:04/21/2023hysician(s):Andrzej Fine MD ( )Copy To: Rec. #:[id number]: #[id number] Final Pathologic Diagnosis 1. Cecal colon polyp: Tubular adenoma. 2. Colon, random biopsy: Hyperplastic polyp fragments. 3. Ascending colon polyp: Tubular adenoma. 4. Descending colon polyp: Tubular adenoma. Report Electronically Signed Out st/04/21/2023Lorin Campos MD Interpretation performed at [facility], [address] [place], [address], License number: [id number]. Clinical History Melena. 2. Rule out microscopic colitis. Gross Description 1. Received in formalin labeled [facility], #1: Cecal colon polyp are 2 lockett bits of soft tissue, each 0.3 cm in greatest dimension. Filtered and submitted in a single cassette. (1, ns, [id number], m7) MG 2. Received in formalin labeled [facility], #2: Random colon biopsy rule out microscopic colitis are 8 lockett bits/strips of soft tissue, ranging from 0.2-0.7 cm in greatest dimension. Filtered and submitted in a single cassette. (1, ns, T72-5226-3, m7) MG 3. Received in formalin labeled [facility], #3: Ascending colon polyp are 4 lockett bits/strips of soft tissue, ranging from 0.1-0.6 cm in greatest dimension. Filtered and submitted in a single cassette. (1, ns, B47-0734-0, m7) MG 4. Received in formalin labeled [facility], #4: Descending colon polyp are 3 lockett bits of soft tissue, ranging from 0.4-0.5 cm in greatest dimension. Filtered and submitted in a single cassette. (1, ns, [id number], m7) MG mj/04/19/2023EAK Specimen(s) Received 1: Cecal colon polyp 2: Colon, random biopsy 3: Ascending colon polyp 4: Descending colon polyp Fee Codes(s): 1; 88209 2; 16629 3; 88591 4; 28982 BASIC METABOLIC PANLon 04-18 Anion gap [Moles/Vol] 7 mmol/L Normal 5-15 [facility] Comment on above: Performed By: #### C BCA, BMP, 3040-3, LIVR #### [facility] [facility] ([id number]) [address] [place] [address] Calcium [Mass/Vol] 8.8 mg/dL Normal 8.5-10.[address] [facility] Comment on above: Performed By: #### C BCA, BMP, 3040-3, LIVR #### [facility] ([id number]) [address] [place] [address] Chloride [Moles/Vol] 102 mmol/L Normal 98-109 [facility] Comment on above: Performed By: #### C MARIA ISABEL BMP, 304-3, LIVR #### [facility] ([id number]) [address] [place] [address] CO2 [Moles/Vol] 29 mmol/L Normal 22-32 [facility] Comment on above: Performed By: #### C MARIA ISABEL BMP, 3039-3, LIVR #### [facility] ([id number]) [address] [place] [address] Creatinine [Mass/Vol] 0.90 mg/dL Normal 0.60-1.30 [facility] Comment on above: Result Comment: METH OD TRACEABLE TO IDMS STANDARD Performed By: #### C MARIA ISABEL BMP, 3039-04, LIVR #### [facility] ([id number]) [address] [place] [address] eGFR (CKD-EPI) NON-RACE DEPENDENT >90 Normal >59 [facility] Comment on above: Result Comment: Reported eGFR is based on the CKD-EPI 2020 equation that does not use a race coefficient. Performed By: #### C MARIA ISABEL BMP, 3039-3, LIVR #### [facility] ([id number]) [address] [place] [address] Glucose [Mass/Vol] 146 mg/dL High 65-[address] [facility] Comment on above: Performed By: #### C MARIA ISABEL BMP, 3040-3, LIVR #### [facility] ([id number]) [address] [place] [address] Potassium [Moles/Vol] 3.9 mmol/L Normal 3.5-5.0 [facility] Comment on above: Performed By: #### C BCA, BMP, 3040-3, LIVR #### [facility] ([id number]) [address] [place] [address] Sodium [Moles/Vol] 138 mmol/L Normal 134-[address] [facility] Comment on above: Performed By: #### C DARREN NICOLAS, 3039-3, LIVR #### [facility] ([id number]) [address] [place] [address] Urea nitrogen [Mass/Vol] 15 mg/dL Normal 5-27 [facility] Comment on above: Performed By: #### C DARREN NICOLAS, 3039-3, LIVR #### [facility] ([id number]) [address] [place] [address] C DIFFICILE BY PCRon 024 C. difficile toxin genes EVA+probe Ql (Stl) TOXIGENIC C DIFF Negative (qualifier value) 027 NAP1 Negative (qualifier value) Normal PRNEG [facility] Comment on above: Performed By: #### C DARREN NICOLAS, 3039-04, LIVR #### [facility] ([id number]) [address], [address] [place] [address] CBC AND AUTO DIFFon 04-18-19 24 ABSOLUTE BASOPHIL 0.1 X10E9/L Normal 0.0-0.[address] [facility] Comment on above: Performed By: #### C DARREN NICOLAS, 3, LIVR #### [facility] ([id number]) [address], [address] [place] [address] ABSOLUTE NEUTROPHIL 10.0 X10E9/L High 1.5-6.6 [facility] Comment on above: Performed By: #### C DARREN NICOLAS, 3039-3, LIVR #### [facility] ([id number]) [address] [place] [address] Basophils/100 WBC (Bld) 0.8 % Normal [facility] Comment on above: Performed By: #### C MARIA ISABEL, BMP, 3039-3, LIVR #### [facility] ([id number]) [address] [address] [place] [address] Eosinophils (Bld) [#/Vol] 0.2 10*3/uL Normal 0.0-0.4 [facility] Comment on above: Performed By: #### C MARIA ISABEL, BMP, 0-3, LIVR #### [facility] ([id number]) [address], [facility] [address] [place] [address] Eosinophils/100 WBC (Bld) 1.4 % Normal [facility] Comment on above: Performed By: #### C MARIA ISABEL, BMP, 3039-3, LIVR #### [facility] ([id number]) [address] [address] [place] [address] Erythrocyte distribution width (RBC) [Ratio] 13.2 % Normal 11.5-15.0 [facility] Comment on above: Performed By: #### C MARIA ISABEL, BMP, 3039-3, LIVR #### [facility] ([id number]) [address] [address] Hematocrit (Bld) [Volume fraction] 43.1 % Normal 39-49 [facility] Comment on above: Performed By: #### C MARIA ISABEL, BMP, 3039-3, LIVR #### [facility] ([id number]) [address] [address] [place] [address] Hemoglobin (Bld) [Mass/Vol] 14.7 g/dL Normal 13.0-17.0 [facility] Comment on above: Performed By: #### C BCA, BMP, 0-3, LIVR #### [facility] ([id number]) [address] [address] [place] [address] Lymphocytes (Bld) [#/Vol] 1.7 10*3/uL Normal 1.0-3.5 [facility] Comment on above: Performed By: #### C DARREN NICOLAS, 3039-04, LIVR #### [facility] ([id number]) [address] [place] [address] Lymphocytes/100 WBC (Bld) 13.1 % Normal [facility] Comment on above: Performed By: #### C DARREN NICOLAS, 3039-04, LIVR #### [facility] ([id number]) [address], [facility] [address] [place] [address] MCH (RBC) [Entitic mass] 30.2 pg Normal 27-34 [facility] Comment on above: Performed By: #### C DARREN NICOLAS, 3039-04, LIVR #### [facility] ([id number]) [address], [facility] [address] [place] [address] MCHC (RBC) [Mass/Vol] 34.1 g/dL Normal 32-36 [facility] Comment on above: Performed By: #### C DARREN NICOLAS, 3039-04, LIVR #### [facility] ([id number]) [address] [place] [address] MCV (RBC) [Entitic vol] 89 fL Normal 80-100 [facility] Comment on above: Performed By: #### C DARREN NICOLAS, 3039-04, LIVR #### [facility] ([id number]) [address] [place] [address] Monocytes (Bld) [#/Vol] 1.0 10*3/uL High 0-0.9 [facility] Comment on above: Performed By: #### C MARIA ISABEL BMP, 3039-3, LIVR #### [facility] ([id number]) [address] [place] [address] Monocytes/100 WBC (Bld) 7.5 % Normal [facility] Comment on above: Performed By: #### C DARREN NICOLAS, 3039-, LIVR #### [facility] ([id number]) [address] [place] [address] Neutrophils/100 WBC (Bld) 77.2 % Normal [facility] Comment on above: Performed By: #### C DARREN NICOLAS, 3039-3, LIVR #### [facility] ([id number]) [address], [facility] [address] [place] [address] Platelet mean volume (Bld) [Entitic vol] 7.4 fL Normal 7-12 [facility] Comment on above: Performed By: #### C MARIA ISABEL, DARREN, 3039-04, LIVR #### [facility] ([id number]) [address], [facility] [address] [place] [address] Platelets (Bld) [#/Vol] 446 10*3/uL Normal 150-450 [facility] Comment on above: Performed By: #### C MARIA ISABEL, DARREN, 3039-, LIVR #### [facility] ([id number]) [address], [facility] [address] [place] [address] RBC COUNT 4.87 X10E12/L Normal 4.10-5.70 [facility] Comment on above: Performed By: #### DARREN Springer BCA, 3039-04, LIVR #### [facility] ([id number]) [address], [facility] [address] [place] [address] WBC (Bld) [#/Vol] 12.9 10*3/uL High 4.0-11.0 [facility] Comment on above: Performed By: #### C MARIA ISABEL, BMP, 3039-3, LIVR #### [facility] ([id number]) [address], [facility] [address] [place] [address] GI PANELon 04-18-2023 Gastrointestinal pathogens DNA and [...] SAPOVIRUS Not detected (qualifier value) Normal NDET [facility] Comment on above: Performed By: #### C [facility], [facility], 3040-3, LIVR #### [facility] ([id number]) [address] [place] [address], [facility] [address] [place] [address] Glucose Glucometer (BldC) [M ass/Vol]on 04-18-2023 Glucose [Mass/Vol] 164 mg/dL High 65-[address] [facility] Glucose [Mass/Vol] 146 mg/dL High 65-[address] [facility] Glucose [Mass/Vol] 145 mg/dL High 65-[address] [facility] Glucose [Mass/Vol] 161 mg/dL High 65-[address] [facility] Surgical Pathologyon 024 Surgical Pathology Normal [facility] Comment on above: Result Comment: [facility] [address] [place] [address] Surgical Pathology Consultation Patient Name:SUSIE BOYCE:1950 (Age: 72)Gender:MTaken:4Reported:4Physician(s):Andrzej Fine MD ( )Copy To: Rec. #:[id number]: #[id number] Final Pathologic Diagnosis 1. Duodenum biopsy: Duodenal mucosa with no specific abnormalities. Negative for villous blunting, atypia, or malignancy. Negative for evidence of celiac disease. 2. Gastric biopsy: Mild chronic gastritis. Negative for helicobacter organisms on routine H&E examination. Negative for dysplasia or malignancy. Report Electronically Signed Out st04/20/2023Lorin Campos MD Interpretation performed at [facility], [address] [place], [address], License number: [id number]. Clinical History Melena. 1. R/O celiac 2. H pylori screening. Gross Description 1. Received in formalin labeled [facility], #1: Duodenum biopsy R/O celiac are 6 lockett bits of soft tissue, ranging from 0.2-0.4 cm in greatest dimension. Filtered and submitted in a single cassette. (1, ns, [id number], m7) MG 2. Received in formalin labeled [facility], #2: Gastric biopsy are 4 lockett bits of soft tissue, ranging from 0.1-0.4 cm in greatest dimension. Filtered and submitted in a single cassette. (1, ns, [id number], m7) MG [facility]/04/18/2023GR Specimen(s) Received 1: Duodenum biopsy 2: Gastric biopsy Fee Codes(s): 1; 94066 2; 78514 BASIC METABOLIC PANLon 04-17 Anion gap [Moles/Vol] 9 mmol/L Normal 5-15 [facility] Comment on above: Performed By: #### C BCA, BMP, 3040-3, LIVR #### [facility] ([id number]) [address] [place] [address] Calcium [Mass/Vol] 8.7 mg/dL Normal 8.5-10.[address] [facility] Comment on above: Performed By: #### C BCA, BMP, 3040-3, LIVR #### [facility] ([id number]) [address], [address] [place] [address] Chloride [Moles/Vol] 104 mmol/L Normal 98-109 [facility] Comment on above: Performed By: #### C MARIA ISABEL BMP, 3040-3, LIVR #### [facility] ([id number]) [address], [address] [place] [address] CO2 [Moles/Vol] 25 mmol/L Normal 22-32 [facility] Comment on above: Performed By: #### C MARIA ISABEL BMP, 3039-3, LIVR #### [facility] ([id number]) [address], [facility] [address] [place] [address] Creatinine [Mass/Vol] 0.77 mg/dL Normal 0.60-1.30 [facility] Comment on above: Result Comment: METH OD TRACEABLE TO IDMS STANDARD Performed By: #### C MARIA ISABEL BMP, 3039-3, LIVR #### [facility] ([id number]) [address], [address] [place] [address] eGFR (CKD-EPI) NON-RACE DEPENDENT >90 Normal >59 [facility] Comment on above: Result Comment: Reported eGFR is based on the CKD-EPI 2020 equation that does not use a race coefficient. Performed By: #### C MARIA ISABEL BMP, 0-3, LIVR #### [facility] ([id number]) [address], [address] [place] [address] Glucose [Mass/Vol] 195 mg/dL High 65-[address] [facility] Comment on above: Performed By: #### C MARIA ISABEL BMP, 3040-3, LIVR #### [facility] ([id number]) [address] [place] [address] Potassium [Moles/Vol] 3.8 mmol/L Normal 3.5-5.0 [facility] Comment on above: Performed By: #### C BCA, BMP, 3040-3, LIVR #### [facility] ([id number]) [address], [address] [place] [address] Sodium [Moles/Vol] 138 mmol/L Normal 134-[address] [facility] Comment on above: Performed By: #### C BCA, BMP, 3040-3, LIVR #### [facility] ([id number]) [address], [facility] [address] [place] [address] Urea nitrogen [Mass/Vol] 14 mg/dL Normal 5-27 [facility] Comment on above: Performed By: #### C BCA, BMP, 3040-3, LIVR #### [facility] ([id number]) [address] [address] CBC AND AUTO DIFFon 04-17-19 24 ABSOLUTE BASOPHIL 0.1 X10E9/L Normal 0.0-0.[address] [facility] Comment on above: Performed By: #### C BCA, BMP, 3040-3, LIVR #### [facility] ([id number]) [address] [address] ABSOLUTE NEUTROPHIL 9.3 X10E9/L High 1.5-6.6 [facility] Comment on above: Performed By: #### C BCA, BMP, 3040-3, LIVR #### [facility] ([id number]) [address], [address] [address] Basophils/100 WBC (Bld) 0.6 % Normal [facility] Comment on above: Performed By: #### C BCA, BMP, 3040-3, LIVR #### [facility] ([id number]) [address] [address] Eosinophils (Bld) [#/Vol] 0.1 10*3/uL Normal 0.0-0.4 [facility] Comment on above: Performed By: #### C BCA, BMP, 3040-3, LIVR #### [facility] ([id number]) [address] [place] [address] Eosinophils/100 WBC (Bld) 1.1 % Normal [facility] Comment on above: Performed By: #### C BCA, BMP, 3039-3, LIVR #### [facility] ([id number]) [address], [facility] [address] [place] [address] Erythrocyte distribution width (RBC) [Ratio] 13.2 % Normal 11.5-15.0 [facility] Comment on above: Performed By: #### C MARIA ISABEL, BMP, 3039-3, LIVR #### [facility] ([id number]) [address], [facility] [address] [place] [address] Hematocrit (Bld) [Volume fraction] 42.9 % Normal 39-49 [facility] Comment on above: Performed By: #### C BCA, BMP, 3039-3, LIVR #### [facility] ([id number]) [address], [facility] [address] [place] [address] Hemoglobin (Bld) [Mass/Vol] 14.6 g/dL Normal 13.0-17.0 [facility] Comment on above: Performed By: #### C BCA, BMP, 3039-3, LIVR #### [facility] ([id number]) [address], [facility] [address] [place] [address] Lymphocytes (Bld) [#/Vol] 1.5 10*3/uL Normal 1.0-3.5 [facility] Comment on above: Performed By: #### C BCA, BMP, 0-3, LIVR #### [facility] ([id number]) [address], [facility] [address] [place] [address] Lymphocytes/100 WBC (Bld) 12.3 % Normal [facility] Comment on above: Performed By: #### C BCA, BMP, 3040-3, LIVR #### [facility] ([id number]) [address] [place] [address] MCH (RBC) [Entitic mass] 29.7 pg Normal 27-34 [facility] Comment on above: Performed By: #### C BCA, BMP, 0-3, LIVR #### [facility] ([id number]) [address] [place] [address] MCHC (RBC) [Mass/Vol] 34.0 g/dL Normal 32-36 [facility] Comment on above: Performed By: #### C BCA, BMP, 3039-3, LIVR #### [facility] ([id number]) [address], [address] [place] [address] MCV (RBC) [Entitic vol] 87 fL Normal 80-100 [facility] Comment on above: Performed By: #### C BCA, BMP, 3039-3, LIVR #### [facility] ([id number]) [address] [place] [address] Monocytes (Bld) [#/Vol] 1.0 10*3/uL High 0-0.9 [facility] Comment on above: Performed By: #### C BCA, BMP, 3039-3, LIVR #### [facility] ([id number]) [address], [address] [place] [address] Monocytes/100 WBC (Bld) 8.6 % Normal [facility] Comment on above: Performed By: #### C BCA, BMP, 3040-3, LIVR #### [facility] ([id number]) [address] [place] [address] Neutrophils/100 WBC (Bld) 77.4 % Normal [facility] Comment on above: Performed By: #### C BCA, BMP, 0-3, LIVR #### [facility] ([id number]) [address] [place] [address] Platelet mean volume (Bld) [Entitic vol] 7.3 fL Normal 7-12 [facility] Comment on above: Performed By: #### C MARIA ISABEL BMP, 3040-3, LIVR #### [facility] ([id number]) [address] [place] [address] Platelets (Bld) [#/Vol] 472 10*3/uL High 150-450 [facility] Comment on above: Performed By: #### DARREN Springer BCA, 3040-3, LIVR #### [facility] ([id number]) [address] [place] [address] RBC COUNT 4.90 X10E12/L Normal 4.10-5.70 [facility] Comment on above: Performed By: #### DARREN Springer BCA, 3040-3, LIVR #### [facility] ([id number]) [address] [place] [address] WBC (Bld) [#/Vol] 12.0 10*3/uL High 4.0-11.0 [facility] Comment on above: Performed By: #### Racheal NICOLAS BMP, 3040-3, LIVR #### [facility] ([id number]) [address] [place] [address] Glucose Glucometer (BldC) [M ass/Vol]on 04-17-2023 Glucose [Mass/Vol] 159 mg/dL High 65-[address] [facility] Glucose [Mass/Vol] 266 mg/dL High 65-[address] [facility] Glucose [Mass/Vol] 406 mg/dL Critically high 65-99 [facility] Glucose [Mass/Vol] 205 mg/dL High 65-[address] [facility] HGB A1C (GLYCO-HGB)on 2023 Glucose [Mass/Vol] 177 mg/dL Normal [facility] Comment on above: Performed By: #### C MARIA ISABEL, BMP, 3040-3, LIVR #### [facility] ([id number]) [address] [place] [address] HbA1c (Bld) [Mass fraction] 7.8 % High 4.4-5.6 [facility] Comment on above: Result Comment: NOTE ADA Guidelines Result HgbA1c Normal : less than 5.7 % Prediabetes : 5.7 % to 6.4 % Diabetes : > 6.4 % Use with caution in patients with abnormal hemoglobin variants as the half-life of red blood cells and in vivo glycation rates are affected. Performed By: #### C MARIA ISABEL BMP, 3040-3, LIVR #### [facility] ([id number]) [address] [place] [address] BASIC METABOLIC PANLon 04-16 Anion gap [Moles/Vol] 9 mmol/L Normal 5-15 [facility] Comment on above: Performed By: #### C MARIA ISABEL, BMP, 3040-3, LIVR #### [facility] ([id number]) [address] [place] [address] Calcium [Mass/Vol] 9.8 mg/dL Normal 8.5-10.[address] [facility] Comment on above: Performed By: #### C BCA, BMP, 3040-3, LIVR #### [facility] ([id number]) [address] [place] [address] Chloride [Moles/Vol] 101 mmol/L Normal 98-109 [facility] Comment on above: Performed By: #### C BCA, BMP, 3040-3, LIVR #### [facility] ([id number]) [address] [place] [address] CO2 [Moles/Vol] 27 mmol/L Normal 22-32 [facility] Comment on above: Performed By: #### C DARREN NICOLAS, 3040-3, LIVR #### [facility] ([id number]) [address] [place] [address] Creatinine [Mass/Vol] 0.84 mg/dL Normal 0.60-1.30 [facility] Comment on above: Result Comment: METH OD TRACEABLE TO IDMS STANDARD Performed By: #### C DARREN NICOLAS, 3040-3, LIVR #### [facility] ([id number]) [address] [place] [address] eGFR (CKD-EPI) NON-RACE DEPENDENT >90 Normal >59 [facility] Comment on above: Result Comment: Reported eGFR is based on the CKD-EPI 2020 equation that does not use a race coefficient. Performed By: #### C DARREN NICOLAS, 3039-3, LIVR #### [facility] ([id number]) [address] [place] [address] Glucose [Mass/Vol] 247 mg/dL High 65-[address] [facility] Comment on above: Performed By: #### C DARREN NICOLAS, 3039-3, LIVR #### [facility] ([id number]) [address] [place] [address] Potassium [Moles/Vol] 4.5 mmol/L Normal 3.5-5.0 [facility] Comment on above: Result Comment: SPEC IMEN HEMOLYZED, RESULTS INCREASED MODERATELY HEMOLYZED Performed By: #### C MARIA ISABEL BMP, 3040-3, LIVR #### [facility] ([id number]) [address] [place] [address] Sodium [Moles/Vol] 137 mmol/L Normal 134-[address] [facility] Comment on above: Performed By: #### C MARIA ISABEL BMP, 3040-3, LIVR #### [facility] ([id number]) [address] [place] [address] Urea nitrogen [Mass/Vol] 20 mg/dL Normal 5-27 [facility] Comment on above: Performed By: #### C BCA, BMP, 3040-3, LIVR #### [facility] ([id number]) [address] [place] [address] CBC AND AUTO DIFFon 04-16-19 24 ABSOLUTE BASOPHIL 0.1 X10E9/L Normal 0.0-0.[address] [facility] Comment on above: Performed By: #### C MARIA ISABEL, BMP, 3040-3, LIVR #### [facility] ([id number]) [address], [address] [place] [address] ABSOLUTE NEUTROPHIL 12.6 X10E9/L High 1.5-6.6 [facility] Comment on above: Performed By: #### C MARIA ISABEL, BMP, 3040-3, LIVR #### [facility] ([id number]) [address], [address] [place] [address] Basophils/100 WBC (Bld) 0.4 % Normal [facility] Comment on above: Performed By: #### C BCA, BMP, 3040-3, LIVR #### [facility] ([id number]) [address], [address] [place] [address] Eosinophils (Bld) [#/Vol] 0.1 10*3/uL Normal 0.0-0.4 [facility] Comment on above: Performed By: #### C BCA, BMP, 3040-3, LIVR #### [facility] ([id number]) [address], [address] [place] [address] Eosinophils/100 WBC (Bld) 0.5 % Normal [facility] Comment on above: Performed By: #### C BCA, BMP, 3040-3, LIVR #### [facility] ([id number]) [address], [address] [place] [address] Erythrocyte distribution width (RBC) [Ratio] 13.4 % Normal 11.5-15.0 [facility] Comment on above: Performed By: #### C MARIA ISABEL, BMP, 3040-3, LIVR #### [facility] ([id number]) [address], [facility] [address] [place] [place] [address] Hematocrit (Bld) [Volume fraction] 45.3 % Normal 39-49 [facility] Comment on above: Performed By: #### C MARIA ISABEL, BMP, 3039-3, LIVR #### [facility] ([id number]) [address] [address] [place] [address] Hemoglobin (Bld) [Mass/Vol] 15.2 g/dL Normal 13.0-17.0 [facility] Comment on above: Performed By: #### C BCA, BMP, 3039-3, LIVR #### [facility] ([id number]) [address] [address] [place] [address] Lymphocytes (Bld) [#/Vol] 1.1 10*3/uL Normal 1.0-3.5 [facility] Comment on above: Performed By: #### C BCA, BMP, 0-3, LIVR #### [facility] ([id number]) [address] [facility] [address] [place] [address] Lymphocytes/100 WBC (Bld) 7.5 % Normal [facility] Comment on above: Performed By: #### C BCA, BMP, 0-3, LIVR #### [facility] ([id number]) [address] [address] [place] [address] MCH (RBC) [Entitic mass] 29.4 pg Normal 27-34 [facility] Comment on above: Performed By: #### C BCA, BMP, 3040-3, LIVR #### [facility] ([id number]) [address] [place] [address] MCHC (RBC) [Mass/Vol] 33.5 g/dL Normal 32-36 [facility] Comment on above: Performed By: #### C BCA, BMP, 3040-3, LIVR #### [facility] ([id number]) [address] [place] [address] MCV (RBC) [Entitic vol] 88 fL Normal 80-100 [facility] Comment on above: Performed By: #### C MARIA ISABEL, BMP, 3040-3, LIVR #### [facility] ([id number]) [address] [place] [address] Monocytes (Bld) [#/Vol] 1.0 10*3/uL High 0-0.9 [facility] Comment on above: Performed By: #### C BCA, BMP, 0-3, LIVR #### [facility] ([id number]) [address] [place] [address] Monocytes/100 WBC (Bld) 6.9 % Normal [facility] Comment on above: Performed By: #### C BCA, BMP, 3040-3, LIVR #### [facility] ([id number]) [address] [place] [address] Neutrophils/100 WBC (Bld) 84.7 % Normal [facility] Comment on above: Performed By: #### C BCA, BMP, 3040-3, LIVR #### [facility] ([id number]) [address] [place] [address] Platelet mean volume (Bld) [Entitic vol] 7.2 fL Normal 7-12 [facility] Comment on above: Performed By: #### C BCA, BMP, 3040-3, LIVR #### [facility] ([id number]) [address] [place] [address] Platelets (Bld) [#/Vol] 501 10*3/uL High 150-450 [facility] Comment on above: Performed By: #### C MARIA ISABEL, BMP, 3040-3, LIVR #### [facility] ([id number]) [address] [place] [address] RBC COUNT 5.18 X10E12/L Normal 4.10-5.70 [facility] Comment on above: Performed By: #### C MARIA ISABEL, BMP, 3040-3, LIVR #### [facility] ([id number]) [address] [place] [address] WBC (Bld) [#/Vol] 14.8 10*3/uL High 4.0-11.0 [facility] Comment on above: Performed By: #### C MARIA ISABEL, DARREN, 3040-3, LIVR #### [facility] ([id number]) [address] [place] [address] CT ABDOMEN AND PELVIS W CONT on [...] Callaway MD on 04/16/2023 4:47 PM Normal [facility] CT BRAIN WO CONTon CT [...] Susie Sam on 04/16/2023 4:15 PM Normal [facility] Glucose Glucometer (BldC) [M ass/Vol]on 04-16-2023 Glucose [Mass/Vol] 121 mg/dL High 65-[address] [facility] LIPASEon 04-16-2023 Lipase [Catalytic activity/Vol] 60 U/L Normal 11-82 [facility] Comment on above: Performed By: #### C DARREN NICOLAS, 3040-3, LIVR #### [facility] ([id number]) [address] [place] [address] LIVER PANELon 04-16-2023 Albumin [Mass/Vol] 4.2 g/dL Normal 3.2-5.[address] [facility] Comment on above: Performed By: #### C DARREN NICOLAS, 0-3, LIVR #### [facility] ([id number]) [address] [place] [address] ALP [Catalytic activity/Vol] 93 U/L Normal 39-130 [facility] Comment on above: Performed By: #### DARREN Springer BCA, 3039-3, LIVR #### [facility] ([id number]) [address] [place] [address] ALT [Catalytic activity/Vol] 19 U/L Normal 0-40 [facility] Comment on above: Performed By: #### DARREN Springer BCA, 0-3, LIVR #### [facility] ([id number]) [address] [place] [address] AST [Catalytic activity/Vol] 17 U/L Normal 0-41 [facility] Comment on above: Performed By: #### Racheal NICOLAS BMP, 3040-3, LIVR #### [facility] ([id number]) [address] [place] [address] Bilirubin [Mass/Vol] 0.8 mg/dL Normal 0.3-1.2 [facility] Comment on above: Performed By: #### C BCA, BMP, 3040-3, LIVR #### [facility] ([id number]) [address] [place] [address] Bilirubin.direct [Mass/Vol] 0.1 mg/dL Normal 0.0-0.4 [facility] Comment on above: Result Comment: SPEC IMEN HEMOLYZED, RESULTS DECREASED MODERATELY HEMOLYZED Performed By: #### C BCA, BMP, 3040-3, LIVR #### [facility] ([id number]) [address] [place] [address] Protein [Mass/Vol] 7.4 g/dL Normal 6.0-8.[address] [facility] Comment on above: Performed By: #### C BCA, BMP, 3040-3, LIVR #### [facility] ([id number]) [address] [place] [address] URN MACROSCOPIC NURon 2023 BILIRUBIN CEDRIC Negative Normal NEG [facility] Comment on above: Performed By: #### N UM #### [facility] ([id number]) [address] [place] [address] BLOOD/HGB CEDRIC Small Abnormal NEG [facility] Comment on above: Performed By: #### N UM #### [facility] ([id number]) [address] [place] [address] GLUCOSE CEDRIC 500 mg/dL Abnormal NEG [facility] Comment on above: Performed By: #### N UM #### [facility] ([id number]) [address] [place] [address] KETONES CEDRIC Negative Normal NEG [facility] Comment on above: Performed By: #### N UM #### [facility] ([id number]) [address] [place] [address] LEUKOCYTE ESTERASE CEDRIC Trace Abnormal NEG [facility] Comment on above: Performed By: #### N UM #### [facility] ([id number]) [address] [place] [address] NITRITE CEDRIC Negative Normal NEG [facility] Comment on above: Performed By: #### N UM #### [facility] ([id number]) [address] [place] [address] PH CEDRIC 5.5 Normal 5.0-8.5 [facility] Comment on above: Performed By: #### N UM #### [facility] ([id number]) [address] [place] [address] PROTEIN CEDRIC Negative Normal NEG [facility] Comment on above: Performed By: #### N UM #### [facility] ([id number]) [address] [place] [address] SPECIFIC GRAVITY CEDRIC 1.015 Normal 1.003-1.035 [facility] Comment on above: Performed By: #### N UM #### [facility] ([id number]) [address] [place] [address] UROBILINOGEN CEDRIC 0.2 eu/dL Normal <1.[address] [facility] Comment on above: Performed By: #### N UM #### [facility] ([id number]) [address] [place] [address] Urine collection deviceon ER EXTRA URINES ER EXTRA URINE ORDER IN PROCESS Normal [facility] XR CHEST 2 VWSon 04-16-2023 [...] Sawyer MD on 04/16/2023 7:09 PM Normal [facility] Basic Metabolic Profon 01-18 Anion gap [Moles/Vol] 17 mmol/L Normal 9-17 [facility] Comment on above: Performed By: #### B MP #### [address] [address] [employer]: Norberto Condon MD Calcium [Mass/Vol] 9.7 mg/dL Normal 8.6-10.4 [facility] Comment on above: Performed By: #### B MP #### [address] [address] [employer]: Norberto Condon MD Chloride [Moles/Vol] 100 mmol/L Normal 98-107 [facility] Comment on above: Performed By: #### B MP #### [address] [address] [employer]: Norberto Condon MD CO2 [Moles/Vol] 19 mmol/L Low 20-31 [facility] Comment on above: Performed By: #### B MP #### [address] [address] [employer]: Norberto Condon MD Creatinine [Mass/Vol] 1.0 mg/dL Normal 0.7-1.2 [facility] Comment on above: Performed By: #### B MP #### [address] [address] [employer]: Norberto Condon MD GFR/1.73 sq M.predicted among non-blacks MDRD (S/P/Bld) [Vol rate/Area] mL/min/{1.73_m2} Normal >60 [facility] Comment on above: Result Comment: [...] secretion. Performed By: #### B MP #### [facility] [employer] [address] [place] [address] [employer]: Norberto Condon MD Glucose [Mass/Vol] 188 mg/dL High 70-99 [facility] Comment on above: Performed By: #### B MP #### [facility] [address] [place] [address] [employer]: Norberto Condon MD Potassium [Moles/Vol] 4.6 mmol/L Normal 3.7-5.3 [facility] Comment on above: Performed By: #### B MP #### [facility] [address] [place] [address] [employer]: Norberto Condon MD Sodium [Moles/Vol] 136 mmol/L Normal 135-144 [facility] Comment on above: Performed By: #### B MP #### [address] [address] [employer]: Norberto Condon MD Urea nitrogen [Mass/Vol] 20 mg/dL Normal 8-23 [facility] Comment on above: Performed By: #### B MP #### [address] [address] [employer]: Norberto Condon MD Clinical Supporton 3 Clinical Support [id number] Susie Boyce 1950 M Date Provider Department Center 10/26/2022 PAT VASQUES MP OT Medical Pavi No family history on file Normal [facility] Comp Metabol,Fastingon 10-04 Albumin [Mass/Vol] 4.5 g/dL Normal 3.5-5.2 [facility] Comment on above: Performed By: #### L IPR, CMPF #### [facility] [address] [place] [address] [employer]: Norberto Condon MD Albumin/Glob Ratio 1.7 Normal 1.0-2.5 [facility] Comment on above: Performed By: #### L IPR, CMPF #### [facility] [address] [place] [address] [employer]: Norberto Condon MD Alkaline Phos 69 U/L Normal 40-129 [facility] Comment on above: Performed By: #### L IPR, CMPF #### [facility] [address] [place] [address] [employer]: Norberto Condon MD ALT [Catalytic activity/Vol] 15 U/L Normal 5-41 [facility] Comment on above: Performed By: #### L IPR, CMPF #### [facility] [address] [place] [address] [employer]: Norberto Condon MD AST [Catalytic activity/Vol] 13 U/L Normal <40 [facility] Comment on above: Performed By: #### L IPR, CMPF #### [facility] [address] [place] [address] [employer]: Norberto Condon MD Bilirubin [Mass/Vol] 0.4 mg/dL Normal 0.3-1.2 [facility] Comment on above: Performed By: #### L IPR, CMPF #### [facility] [address] [place] [address] [employer]: Norberto Condon MD Protein [Mass/Vol] 7.2 g/dL Normal 6.4-8.3 [facility] Comment on above: Performed By: #### L IPR, CMPF #### [facility] [place] [address] [employer]: Norberto Condon MD Anion gap [Moles/Vol] 19 mmol/L High 9-17 [facility] Comment on above: Performed By: #### L IPR, CMPF #### [facility] [address] [place] [address] [employer]: Norberto Condon MD Calcium [Mass/Vol] 9.8 mg/dL Normal 8.6-10.4 [facility] Comment on above: Performed By: #### L IPR, CMPF #### [facility] [address] [place] [address] [employer]: Norberto Condon MD Chloride [Moles/Vol] 101 mmol/L Normal 98-107 [facility] Comment on above: Performed By: #### L IPR, CMPF #### [facility] [address] [place] [address] [employer]: Norberto Condon MD CO2 [Moles/Vol] 19 mmol/L Low 20-31 [facility] Comment on above: Performed By: #### L IPR, CMPF #### [facility] [address] [place] [address] [employer]: Norberto Condon MD Creatinine [Mass/Vol] 1.0 mg/dL Normal 0.7-1.2 [facility] Comment on above: Performed By: #### L IPR, CMPF #### [facility] [address] [place] [address] [employer]: Norberto Condon MD GFR/1.73 sq M.predicted among non-blacks MDRD (S/P/Bld) [Vol rate/Area] mL/min/{1.73_m2} Normal >60 [facility] Comment on above: Result Comment: [...] Performed By: #### L IPR, CMPF #### [facility] [address] [place] [phone] [employer]: Norberto Condon MD Glucose [Mass/Vol] 138 mg/dL High 70-99 [facility] Comment on above: Performed By: #### L IPR CMPF #### [facility] [address] [place] [address] [employer]: Norberto Condon MD Potassium [Moles/Vol] 4.9 mmol/L Normal 3.7-5.3 [facility] Comment on above: Performed By: #### L IPR CMPF #### [facility] [address] [place] [phone] [employer]: Norberto Condon MD Sodium [Moles/Vol] 139 mmol/L Normal 135-144 [facility] Comment on above: Performed By: #### L IPR, CMPF #### [employer] [address] [place] [address] [employer] Gas: Norberto Condon MD Urea nitrogen [Mass/Vol] 26 mg/dL High 8-23 [facility] Comment on above: Performed By: #### L IPR, CMPF #### [employer] [address] [place] [address] [employer]: Norberto Condon MD Lipid Profileon 10-04-2022 Cholesterol [Mass/Vol] 125 mg/dL Normal <200 [facility] Comment on above: Result Comment: Cholesterol Guidelines: <200 Desirable 200-240 Borderline >240 Undesirable Performed By: #### L IPR, CMPF #### [facility] [address] [place] [address] [employer]: Norberto Condon MD Cholesterol in HDL [Mass/Vol] 43 mg/dL Normal >40 [facility] Comment on above: Result Comment: HDL Guidelines: <40 Undesirable 40-59 Borderline >59 Desirable Performed By: #### L IPR, CMPF #### [employer] [address] [place] [address] [employer]: Norberto Condon MD Cholesterol in LDL [Mass/Vol] 66 mg/dL Normal 0-130 [facility] Comment on above: Result Comment: LDL Guidelines: <100 Desirable 100-129 Near to/above Desirable 130-159 Borderline >159 Undesirable Direct (measured) LDL and calculated LDL are not interchangeable tests. Performed By: #### L IPR, CMPF #### [facility] [employer] [address] [place] [address] [employer]: Norberto Condon MD Cholesterol.total/Ch olesterol in HDL [Mass ratio] 2.9 {ratio} Normal <5 [facility] Comment on above: Performed By: #### L IPR, CMPF #### [employer] [address] [place] [address] [employer]: Norberto Condon MD Triglyceride [Mass/Vol] 80 mg/dL Normal <150 [facility] Comment on above: Result Comment: Triglyceride Guidelines: <150 Desirable 150-199 Borderline 200-499 High >499 Very high Based on AHA Guidelines for fasting triglyceride, November 2011. Performed By: #### L IPR, CMPF #### [employer] [address] [place] [address] [employer]: Norberto Condon MD MRI BRAIN W WO [...] Bertin David MD 09/13/22 Final result Normal [facility] Creatinine w/GFRon 3 Creatinine [Mass/Vol] 0.8 mg/dL Normal 0.7-1.2 [facility] Comment on above: Performed By: #### C REG #### [facility] [address] [place] [phone] [employer]: Derrek Godinez MD GFR/1.73 sq M.predicted among non-blacks MDRD (S/P/Bld) [Vol rate/Area] mL/min/{1.73_m2} Normal >60 [facility] Comment on above: Result Comment: [...] secretion. Performed By: #### C REG #### [facility] [address] [place] [address] [employer]: Derrek Godinez MD B12/Folate Panelon Cobalamin (Vitamin B12) [Mass/Vol] 392 pg/mL Normal 232-1245 [facility] Comment on above: Performed By: #### B 12FOL #### [facility] [address] [place] [address] [employer]: Norberto Condon MD Folic Acid 13.6 ng/mL Normal >4.8 [facility] Comment on above: Performed By: #### B 12FOL #### [facility] [address] [place] [address] [employer]: Norberto Condon MD Vitamin B12 & Folateon 08-11 Cobalamin (Vitamin B12) [Mass/Vol] 392 pg/mL 232 - 1245 pg/mL [facility] Folate [Mass/Vol] 13.6 ng/mL 4.8 - PINF ng/mL [facility] MRI CERVICAL SPINE WO CONTRA STon 01-03-2022 [...] the left at C6-7. Interpreted by: Fazal Rodsa DO Signed by: Fazal Rodas DO 01/03/22 Final result Normal [facility] Multilevel cervical spondylosis resulting in upwards of moderate canal stenosis at C6-7. Varying levels of foraminal stenosis, severe on the left at C6-7. [facility] EXAMINATION: MRI OF THE [...] spinal canal stenosis or neural foraminal narrowing. [facility] Fazal Rodas DO - [...] stenosis, severe on the left at C6-7. [employer] Phone: MRI CERVICAL SPINE WO CONTRA STOrdered By: Fazal Rodas on 01-03-2022 [employer] Phone: MRI CERVICAL SPINE WO CONTRA Ryan 01-01-2022 Radiology Study observation (narrative) [employer] Phone: XR CERVICAL SPINE (2-3 VIEWS )on 10-30-2021 No acute osseous abnormality. Multilevel degenerative change. [facility] CONSOLIDATED EXAMINATION: XRAY VIEWS OF THE CERVICAL SPINE 10/30/2021 8:51 am COMPARISON: None. 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 No acute osseous abnormality. Moderate degenerative change throughout most significant C4-5 C5-6 with loss of disc height endplate spondylosis. Prevertebral soft tissues unremarkable. [facility] Doroteo Steele, DO - 10/30/2021 EXAMINATION: XRAY VIEWS OF THE CERVICAL SPINE 10/30/2021 8:51 am COMPARISON: None. 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 No acute osseous abnormality. Moderate degenerative change throughout most significant C4-5 C5-6 with loss of disc height endplate spondylosis. Prevertebral soft tissues unremarkable. IMPRESSION: No acute osseous abnormality. Multilevel degenerative change. [facility] [employer] Phone: Radiology Study observation (narrative) [facility] Work Phone: XR CERVICAL SPINE (2-3 VIEWS )Ordered By: Doroteo Mcmillan on 10-30-2021 [facility] Work Phone: Comprehensive Metabolic Pane l, Fastingon 10-29-2021 Albumin [Mass/Vol] 4.4 g/dL 3.5 - 5.2 g/dL [facility] Albumin/Globulin [Mass ratio] 1.6 {ratio} 1 - 2.5 [facility] ALP (Bld) [Catalytic activity/Vol] 67 U/L 40 - 129 U/L [employer] [facility] ALT [Catalytic activity/Vol] 20 U/L 5 - 41 U/L [employer] [facility] Anion gap [Moles/Vol] 15 mmol/L 9 - 17 mmol/L [facility] AST [Catalytic activity/Vol] 14 U/L NINF - 40 U/L [employer] [facility] Bilirubin [Mass/Vol] 0.6 mg/dL 0.3 - 1 .2 mg/dL [facility] Calcium [Mass/Vol] 9.4 mg/dL 8.6 - 10. 4 mg/dL [facility] Chloride [Moles/Vol] 103 mmol/L 98 - 10 7 mmol/L [facility] CO2 [Moles/Vol] 23 mmol/L 20 - 31 mmol/L [facility] Creatinine [Mass/Vol] 0.79 mg/dL 0.7 - 1.2 mg/dL [facility] Free PSA/Total PSA [Mass fraction] 7.2 g/dL 6.4 - 8.3 g/dL [facility] GFR >60 60 - PI NF mL/min [facility] GFR Non- >60 60 - PINF mL/min [facility] GFR/1.73 sq M.predicted MDRD (S/P/Bld) [Vol rate/Area] [facility] Comment on above: Average GFR for 70 o r more years old: 75 mL/min/1.73sq m Chronic Kidney Disease: <60 mL/min/1.73sq m Kidney failure: <15 mL/min/1.73sq m eGFR calculated using average adult body mass. Additional eGFR calculator available at: http://www.Verical/multiple_crcl_2012.htm Glucose [Mass/Vol] 139 mg/dL High 70 - 99 mg/dL [facility] Interpretation and review of laboratory results Abnormal [facility] Potassium [Moles/Vol] 4.6 mmol/L 3.7 - 5.3 mmol/L [facility] Sodium [Moles/Vol] 141 mmol/L 135 - 144 mmol/L [facility] Urea nitrogen (BldV) [Mass/Vol] 20 mg/dL 8 - 23 mg/dL [facility] Lipid Panelon 10-29-2021 Cholesterol [Mass/Vol] 160 mg/dL NINF - 200 mg/dL [facility] Comment on above: Cholesterol Guidelines: <200 Desirable 200-240 Borderline >240 Undesirable Cholesterol in HDL [Mass/Vol] 41 mg/dL 40 - PINF mg/dL [facility] Comment on above: HDL Guidelines: <40 Undesirable 40-59 Borderline >59 Desirable Cholesterol in LDL [Mass/Vol] 95 mg/dL 0 - 130 mg/dL [facility] [facility] [employer] Comment on above: LDL Guidelines: <100 Desirable 100-129 Near to/above Desirable 130-159 Borderline >159 Undesirable Direct (measured) LDL and calculated LDL are not interchangeable tests. Cholesterol.total/Ch olesterol in HDL [Mass ratio] 3.9 {ratio} NINF - 5 [facility] Triglyceride [Mass/Vol] 118 mg/dL NINF - 150 mg/dL [facility] Comment on above: Triglyceride Guidelines: <150 Desirable 150-199 Borderline 200-499 High >499 Very high Based on AHA Guidelines for fasting triglyceride, November 2011. No Panel Informationon 10-29 [facility] [employer] TSH With Reflex Ft4on 2021 TSH Qn 1.88 m[IU]/L [facility] Vitamin B12on 10-29-2021 Cobalamin (Vitamin B12) [Mass/Vol] 192 pg/mL Low 232 - 1245 pg/mL [facility] Interpretation and review of laboratory results Abnormal [facility] Vital Signs Date Time Vital Sign Value Performing Clinician Facility 04-27-2024 21:46-0500 Body mass index (BMI) [Ratio] 26.91 kg/m2 [employer] [facility] 04-27-2024 21:46-0500 Body temperature 97.81 [degF] [employer] DO Work Phone: [facility] 04-27-2024 21:46-0500 Body weight 77.93 kg [employer] DO Work [facility] [employer] 04-27-2024 21:46-0500 Diastolic blood pressure 62 mm[Hg] T[employer]lr DO Work Phone: [facility] 04-27-2024 21:46-0500 Heart rate 66 /min [employer] Work [facility]: [facility] [employer] 04-27-2024 21:46-0500 Respiratory rate 18 /min Javad Furlong DO Work Phone: [facility] 04-27-2024 21:46-0500 SaO2% (BldA) [Mass fraction] 97 % Javad Furlong DO Work Phone: [facility] 04-27-2024 21:46-0500 Systolic blood pressure 119 mm[Hg] Javad Furlong DO Work Phone: [facility] 03-31-2024 17:43-0500 Body mass index (BMI) [Ratio] 27.06 kg/m2 Javad Furlong DO Work Phone: [facility] 03-31-2024 17:43-0500 Body temperature 97.9 [degF] Javad Furlong DO Work Phone: [facility] 03-31-2024 17:43-0500 Body weight 78.38 kg Javad Furlong DO Work Phone: [facility] 03-31-2024 17:43-0500 Diastolic blood pressure 51 mm[Hg] Javad Furlong DO Work Phone: [facility] 03-31-2024 17:43-0500 Heart rate 53 /min Javad Furlong DO Work Phone: [facility] 03-31-2024 17:43-0500 Respiratory rate 18 /min Javad Furlong DO Work Phone: [facility] 03-31-2024 17:43-0500 SaO2% (BldA) [Mass fraction] 93 % Javad Furlong DO Work Phone: [facility] 03-31-2024 17:43-0500 Systolic blood pressure 97 mm[Hg] Javad Furlong DO Work Phone: [facility] 02-24-2024 16:54-0500 Body temperature 97.7 [degF] Javad Furlong DO Work Phone: [facility] 02-24-2024 16:54-0500 Diastolic blood pressure 88 mm[Hg] Javad Furlong DO Work Phone: [facility] 02-24-2024 16:54-0500 Heart rate 62 /min Javad Furlong DO Work Phone: [facility] 02-24-2024 16:54-0500 Respiratory rate 20 /min Javad Furlong DO Work Phone: [facility] 02-24-2024 16:54-0500 SaO2% (BldA) [Mass fraction] 97 % Javad Furlong DO Work Phone: [facility] 02-24-2024 16:54-0500 Systolic blood pressure 158 mm[Hg] Javad Furlong DO Work Phone: [facility] 02-10-2024 17:43-0500 Body mass index (BMI) [Ratio] 26.91 kg/m2 Javad Furlong DO Work Phone: [facility] 02-10-2024 17:43-0500 Body weight 77.93 kg Javad Furlong DO Work Phone: [facility] 01-27-2024 14:35-0500 Body mass index (BMI) [Ratio] 27.6 kg/m2 Javad Furlong DO Work Phone: [facility] 01-27-2024 14:35-0500 Body temperature 96.91 [degF] Javad Furlong DO Work Phone: [facility] 01-27-2024 14:35-0500 Body weight 79.92 kg Javad Furlong DO Work Phone: [facility] 01-27-2024 14:35-0500 Diastolic blood pressure 68 mm[Hg] Javad Furlong DO Work Phone: [facility] 01-27-2024 14:35-0500 Heart rate 66 /min Javad Furlong DO Work Phone: [facility] 01-27-2024 14:35-0500 Respiratory rate 18 /min Javad Furlong DO Work Phone: [facility] 01-27-2024 14:35-0500 SaO2% (BldA) [Mass fraction] 95 % Javad Furlong DO Work Phone: [facility] 01-27-2024 14:35-0500 Systolic blood pressure 126 mm[Hg] Javad Furlong DO Work Phone: [facility] 12-23-2023 15:54-0400 Body mass index (BMI) [Ratio] 27.06 kg/m2 Javad Furlong DO Work Phone: [facility] 12-23-2023 15:54-0400 Body temperature 97.9 [degF] Javad Furlong DO Work Phone: [facility] 12-23-2023 15:54-0400 Body weight 78.38 kg Javad Furlong DO Work Phone: [facility] 12-23-2023 15:54-0400 Diastolic blood pressure 76 mm[Hg] Javad Furlong DO Work Phone: [facility] 12-23-2023 15:54-0400 Heart rate 76 /min Javad Furlong DO Work Phone: [facility] 12-23-2023 15:54-0400 Respiratory rate 17 /min Javad Furlong DO Work Phone: [facility] 12-23-2023 15:54-0400 SaO2% (BldA) [Mass fraction] 97 % Javad Furlong DO Work Phone: [facility] 12-23-2023 15:54-0400 Systolic blood pressure 134 mm[Hg] Javad Furlong DO Work Phone: [facility] 11-04-2023 17:04-0400 Body temperature 97.9 [degF] Javad Furlong DO Work Phone: [facility] 11-04-2023 17:04-0400 Diastolic blood pressure 55 mm[Hg] Javad Furlong DO Work Phone: [facility] 11-04-2023 17:04-0400 Heart rate 53 /min Javad Furlong DO Work Phone: [facility] 11-04-2023 17:04-0400 Respiratory rate 18 /min Javad Furlong DO Work Phone: [facility] 11-04-2023 17:04-0400 SaO2% (BldA) [Mass fraction] 95 % Javad Furlong DO Work Phone: [facility] 11-04-2023 17:04-0400 Systolic blood pressure 105 mm[Hg] Javad Furlong DO Work Phone: [facility] 10-26-2023 21:36-0400 Body mass index (BMI) [Ratio] 27.44 kg/m2 Javad Furlong DO Work Phone: [facility] 10-26-2023 21:36-0400 Body temperature 97.9 [degF] Javad Furlong DO Work Phone: [facility] 10-26-2023 21:36-0400 Body weight 79.47 kg Javad Furlong DO Work Phone: [facility] 10-26-2023 21:36-0400 Diastolic blood pressure 72 mm[Hg] Javad Furlong DO Work Phone: [facility] 10-26-2023 21:36-0400 Heart rate 64 /min Javad Furlong DO Work Phone: [facility] 10-26-2023 21:36-0400 Respiratory rate 16 /min Javad Furlong DO Work Phone: [facility] 10-26-2023 21:36-0400 SaO2% (BldA) [Mass fraction] 96 % Javad Furlong DO Work Phone: [facility] 10-26-2023 21:36-0400 Systolic blood pressure 135 mm[Hg] Javad Furlong DO Work Phone: [facility] 09-14-2023 17:14-0400 Body temperature 98.1 [degF] Javad Furlong DO Work Phone: [facility] 09-14-2023 17:14-0400 Diastolic blood pressure 86 mm[Hg] Javad Furlong DO Work Phone: [facility] 09-14-2023 17:14-0400 Heart rate 58 /min Javad Furlong DO Work Phone: [facility] 09-14-2023 17:14-0400 Respiratory rate 17 /min Javad Furlong DO Work Phone: [facility] 09-14-2023 17:14-0400 SaO2% (BldA) [Mass fraction] 97 % Javad Furlong DO Work Phone: [facility] 09-14-2023 17:14-0400 Systolic blood pressure 138 mm[Hg] Javad Furlong DO Work Phone: [facility] 09-09-2023 17:55-0400 Body mass index (BMI) [Ratio] 28.13 kg/m2 Javad Furlong DO Work Phone: [facility] 09-09-2023 17:55-0400 Body weight 81.47 kg Javad Furlong DO Work Phone: [facility] 09-09-2023 17:55-0400 Diastolic blood pressure 71 mm[Hg] Javad Furlong DO Work Phone: [facility] 09-09-2023 17:55-0400 Systolic blood pressure 144 mm[Hg] Javad Furlong DO Work Phone: [facility] 09-02-2023 17:00-0400 Body temperature 97.9 [degF] Javad Furlong DO Work Phone: [facility] 09-02-2023 17:00-0400 Diastolic blood pressure 89 mm[Hg] Javad Furlong DO Work Phone: [facility] 09-02-2023 17:00-0400 Heart rate 50 /min Javad Furlong DO Work Phone: [facility] 09-02-2023 17:00-0400 Respiratory rate 18 /min Javad Furlong DO Work Phone: [facility] 09-02-2023 17:00-0400 SaO2% (BldA) [Mass fraction] 96 % Javad Furlong DO Work Phone: [facility] 09-02-2023 17:00-0400 Systolic blood pressure 144 mm[Hg] Javad Furlong DO Work Phone: [facility] 08-05-2023 17:02-0400 Body height 170.2 cm Javad Furlong DO Work Phone: [facility] 08-05-2023 17:02-0400 Body mass index (BMI) [Ratio] 28.51 kg/m2 Javad Furlong DO Work Phone: [facility] 08-05-2023 17:02-0400 Body temperature 97.7 [degF] Javad Furlong DO Work Phone: [facility] 08-05-2023 17:02-0400 Body weight 82.56 kg Javad Furlong DO Work Phone: [facility] 08-05-2023 17:02-0400 Diastolic blood pressure 62 mm[Hg] [facility] 08-05-2023 17:02-0400 Heart rate 60 /min Javad Apodacalong DO Work Phone: [facility] [employer] 08-05-2023 17:02-0400 Respiratory rate 17 /min Javad Apodacalong DO [facility] 08-05-2023 17:02-0400 SaO2% (BldA) [Mass fraction] 99 % Javad Apodacalong DO [facility] 08-05-2023 17:02-0400 Systolic blood pressure 110 mm[Hg] Javad Mccormickng DO [facility] 06-17-2023 10:00-0400 Body temperature 96.8 [degF] Dena Silva MD Work Phone: [facility] 06-17-2023 10:00-0400 Diastolic blood pressure 69 mm[Hg] Dena Silva MD Work Phone: [facility] 06-17-2023 10:00-0400 Heart rate 75 /min Dena Silva MD Work Phone: [facility] 06-17-2023 10:00-0400 Respiratory rate 17 /min Dena Silva MD Work Phone: [facility] 06-17-2023 10:00-0400 SaO2% (BldA) [Mass fraction] 98 % Dena Silva MD Work Phone: [facility] 06-17-2023 10:00-0400 Systolic blood pressure 124 mm[Hg] Dena Silva MD Work Phone: [facility] 06-16-2023 12:03-0400 Body height 172.7 cm Dena Silva MD Work Phone: [facility] 06-16-2023 12:03-0400 Body mass index (BMI) [Ratio] 27.83 kg/m2 Dena Silva MD Work Phone: [facility] 06-16-2023 12: Body weight 83.01 kg Dena Silva MD Work Phone: [facility] [employer] Encounters Encounter Date Encounter Type Care Provider Facility Start: 04-27-2024 End: 04-29-2024 ambulatory Javad Alegre [employer] Work Phone: [facility] Comment on above: Parkinson's disease without dyskinesia or fluctuating manifestations (CMS-HCC) (Primary Dx); Lewy body dementia with psychotic disturbance, unspecified dementia severity (CMS-HCC); Neurogenic orthostatic hypotension (CMS-HCC); Impaired gait Start: 03-20-2024 End: 03-31-2024 ambulatory Javad Alegre [employer] Work Phone: [facility] Comment on above: 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, unspecified dementia severity (CMS-HCC) (Primary Dx); Parkinson's disease without dyskinesia or fluctuating manifestations (CMS-HCC); Anxiety; Neurogenic orthostatic hypotension (CMS-HCC) Start: 02-24-2024 End: 02-24-2024 ambulatory Javad Alegre DO Work Phone: [facility] Comment on above: 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, unspecified dementia severity (CMS-HCC) (Primary Dx); Impaired gait; Recurrent falls; Laceration of scalp without foreign body, subsequent encounter Start: 02-10-2024 End: 02-10-2024 ambulatory Javad Alegre DO Work Phone: [facility] Comment on above: Parkinson's disease without dyskinesia or fluctuating manifestations (CMS-HCC) (Primary Dx); Anxiety; Depression, unspecified depression type Start: 01-27-2024 End: 01-27-2024 ambulatory Javad Alegre DO Work Phone: [facility] Comment on above: Late onset Alzheimer 's dementia with anxiety, unspecified dementia severity (CMS-HCC) (Primary Dx); Parkinson's disease without dyskinesia or fluctuating manifestations (CMS-HCC); Gastroesophageal reflux disease, unspecified whether esophagitis present; Hypotension, unspecified hypotension type; Primary hypertension Start: 12-23-2023 End: 12-23-2023 ambulatory Javad Alegre [employer] Work Phone: [facility] Comment on above: Late onset Alzheimer 's dementia with anxiety, unspecified dementia severity (CMS-HCC) (Primary Dx); Parkinson's disease without dyskinesia or fluctuating manifestations (CMS-HCC); Anxiety; Impaired gait; Contusion of scalp, subsequent encounter Start: 11-04-2023 End: 11-04-2023 ambulatory Javad Alegre [employer] Work Phone: [facility] Comment on above: COVID-19 (Primary Dx ); Type 2 diabetes mellitus with diabetic neuropathy, with long-term current use of insulin (CMS-HCC); Late onset Alzheimer's dementia with anxiety, unspecified dementia severity (CMS-HCC); Primary hypertension; Low serum total protein level Start: 10-26-2023 End: 11-17-2023 ambulatory Javad Alegre [employer] Work Phone: [facility] Comment on above: Parkinson's disease without dyskinesia or fluctuating manifestations (CMS-HCC) (Primary Dx); Laceration of scalp, subsequent encounter; Type 2 diabetes mellitus with diabetic neuropathy, with long-term current use of insulin ([facility]) Start: 09-20-2023 End: 10-02-2023 ambulatory Javad Alegre [employer] Work Phone: [facility] Comment on above: Late onset Alzheimer 's dementia with anxiety, unspecified dementia severity (CMS-HCC) (Primary Dx); Urinary incontinence, unspecified type; Anxiety Start: 09-14-2023 End: 09-14-2023 ambulatory Javad Alegre [employer] Work Phone: [facility] Comment on above: Type 2 diabetes sree itus with complication, with long-term current use of insulin (CMS-HCC) (Primary Dx); Low HDL (under 40); Late onset Alzheimer's dementia with anxiety, unspecified dementia severity (CMS-HCC); Hyperlipidemia, unspecified hyperlipidemia type; Low serum total protein level Start: 09-09-2023 End: 09-09-2023 ambulatory Javad Alegre [employer] Work Phone: [facility] Comment on above: Parkinson's disease without dyskinesia or fluctuating manifestations (CMS-HCC) (Primary Dx); Hypotension, unspecified hypotension type; Urinary incontinence, unspecified type; Primary hypertension Start: 09-02-2023 End: 09-02-2023 ambulatory Javad Alegre [employer] Work Phone: [facility] Comment on above: Type 2 diabetes sree itus with complication, with long-term current use of insulin (CMS-HCC) (Primary Dx); Contusion of left buttock; Late onset Alzheimer's dementia with anxiety, unspecified dementia severity (CMS-HCC); Parkinson's disease without dyskinesia or fluctuating manifestations (CMS-HCC); Hyperlipidemia, unspecified hyperlipidemia type Start: 08-05-2023 End: 08-05-2023 ambulatory [facility]ad Alegre [employer] [facility] Comment on above: Parkinson's disease without dyskinesia or fluctuating manifestations (CMS-HCC) (Primary Dx); Late onset Alzheimer's dementia with other behavioral disturbance, unspecified dementia severity (CMS-HCC); Depression, unspecified depression type; Type 2 diabetes mellitus with diabetic neuropathy, with long-term current use of insulin (CMS-HCC) Start: 07-18-2023 End: 08-04-2023 Evaluation and management of inpatient [facility] Start: 06-17-2023 End: 06-19-2023 Evaluation and management of inpatient [facility] Comment on above: Arrived Start: 06-16-2023 End: 06-17-2023 Evaluation and management of inpatient Dena Silva MD Work Phone: [facility] Comment on above: Near syncope (Primar y Dx); Pre-syncope; Parkinson's disease without dyskinesia or fluctuating manifestations (HCC) Start: 04-27-2023 Telephone encounter Nailasarai Starr denny DO Work Phone: [facility] Start: 04-21-2023 End: 04-21-2023 ambulatory MARLENA PADGETT [facility] Start: 04-21-2023 End: 04-21-2023 ambulatory MAGALI SUAZO [facility] Start: 04-19-2023 End: 04-21-2023 ambulatory ANDRZEJ FINE [facility] Start: 04-18-2023 End: 04-21-2023 ambulatory ANILA MAXX [facility] Start: 04-16-2023 End: 04-21-2023 ambulatory HECTOR Da Silva [facility] Start: 04-16-2023 End: 04-21-2023 [facility]: 04-16-[facility]23 End: 04-20-2023 ambulatory [facility] Start: 01-25-2023 ambulatory [facility] Start: 01-18-2023 End: 01-19-2023 ambulatory [facility] Start: 10-26-2022 [facility] Start: 10-07-2022 End: 10-10-2022 ambulatory [facility] Start: 10-04-2022 End: 10-05-2022 ambulatory [facility] Start: 09-07-2022 End: 09-10-2022 ambulatory [facility] Start: 09-07-2022 End: 09-09-2022 Subsequent hospital visit by physician Vale Evangelista MD Work Phone: [facility] Comment on above: Cognitive impairment Start: 08-26-2022 End: 08-29-2022 ambulatory [facility] Start: 08-11-2022 End: 08-12-2022 [facility] Start: 08-11-2022 End: 08-11-2022 Subsequent hospital visit by physician Dandre Swanson MD Work Phone: [facility] [place] [facility] Comment on above: B12 deficiency Start: 02-17-2022 End: 02-17-2022 Subsequent hospital visit by physician Kingston Quiles PT [facility] Start: 02-08-2022 End: 02-08-2022 Subsequent hospital visit by physician Kingston Quiles PT [facility] Start: 02-03-2022 End: 02-03-2022 Subsequent hospital visit by physician Nandini Rizzo VICE PRESIDENT OF FINANCE [facility] Start: 01-01-2022 End: 01-04-2022 ambulatory [facility] Start: 01-01-2022 End: 01-03-2022 Subsequent hospital visit by physician Katherine Mri [facility] Comment on above: Tremors of nervous s ystem; Cervical arthritis; Gait abnormality Start: 10-30-2021 End: 11-01-2021 Subsequent [facility] Comment on above: Tremors of nervous s ystem Start: 10-29-2021 End: 10-29-2021 Subsequent hospital visit by physician Dandre Swanson MD Work Phone: [facility] [place] [facility] Comment on above: Tremors of nervous s ystem; Type 2 diabetes mellitus without complication, with long-term current use of insulin (HCC); Other hyperlipidemia Procedures Date Procedure Procedure Detail Performing Clinician Start: 06-17-2023 Electroencephalogram w/rec awake&asleep Josef Farah DO Work Phone: Start: 06-17-2023 Glucose blood reagent strip Marta da silva MD Work Phone: Start: 06-17-2023 Myocardial spect [...] Start: 06-16-2023 Glucose blood reagent strip Marta da silva MD Work Phone: Start: 06-16-2023 Glucose blood reagent strip aMrta da silva MD Work Phone: Start: 06-16-2023 Radiologic exam chest single view Dena Silva MD Work Phone: Start: 06-16-2023 End: 06-16-2023 Basic metabolic panel calcium total Dena Silva MD Work Phone: Start: 06-16-2023 Ecg routine ecg w/least 12 lds w/i&r Dena Silva MD Work Phone: Start: 04-19-2023 Colonoscopy Dena Silva MD Work Phone: Start: 08-11-2022 VITAMIN B12 & FOLATE Maira VAZQUEZ RN - WAREHOUSE OPERATIONS ASSOCIATE Work Phone: Start: 01-01-2022 Mri spinal canal [...] Screening for malign ant neoplasm of colon [facility] Start: 01-28-2028 Screening for malign ant neoplasm of colon [facility] [employer] [facility] Start: 03-31-2025 Adult BMI Screening Adult BMI Screen ing [facility] Start: 02-09-2025 Adult BMI Screening Adult BMI Screen ing [facility] Start: 01-26-2025 Adult BMI Screening Adult BMI Screen ing [facility] Start: 12-22-2024 Adult BMI Screening Adult BMI Screen ing [facility] Start: 12-22-2024 Tobacco Screening Tobacco Screening [facility] Start: 10-25-2024 Adult BMI Screening Adult BMI Screen ing [facility] Start: 09-08-2024 Adult BMI Screening Adult BMI Screen ing [facility] Start: 08-04-2024 Adult BMI Screening Adult BMI Screen ing [facility] Start: 08-04-2024 Tobacco Screening Tobacco Screening [facility] Start: 06-16-2024 GFR test (Diabetes, CKD 3-4, OR last GFR 15-59) GFR test (Diabetes, CKD 3-4, OR last GFR 15-59) [facility] Start: 05-18-2024 Hemoglobin A1c measurement A1C test (Diabetic or Prediabetic) [facility] Start: 04-20-2024 Adult BMI Screening [facility] Start: 04-19-2024 Tobacco Screening Tobacco Screening [facility] Start: 03-31-2024 Depression Monitoring Depression [facility] Start: 01-13-2024 Influenza vaccination Flu vacc ine (Season Ended) [facility] [employer] [facility] Comment on above: Postponed from 09/28 (Patient Refused) Start: 10-30-2023 COVID-19 Vaccine ( season) COVID-19 Vaccine ( season) [facility] Start: 10-30-2023 COVID-19 Vaccine ( season) COVID-19 Vaccine ( [facility]) [facility] [facility] Start: 10-30-2023 Influenza vaccination Influenza Vacc ine [facility] Start: 10-05-2023 Lipid panel Lipids [facility] Start: 09-09-2023 Annual Wellness Visi t (AWV) [...] procedure 08/24/2023 1:20 PM EDT Office Visit [facility] [address] [place] [address] [place] [address] [facility] [place] [address] 3 month DM f/u [facility] Comment on above: 3 month DM f/u Start: 08-11-2023 End: 08-11-2023 Patient encounter procedure 08/11/2023 11:40 AM EDT Office Visit [facility] Neurology Specialist [address] [facility] [address] [place] [id number] Vale Evangelista MD [address] [facility] [address] [place], [place] [id number] 3M PT Parkinsons [facility] Neurology Specialist Comment on above: 3M PT Parkinsons Start: 02-28-2023 Annual Wellness Visi t (Medicare Advantage) Annual Wellness Visit (Medicare Advantage) [facility] Start: 01-19-2023 Depression Monitoring Depression Mon itoring [facility] Start: 01-19-2023 Hemoglobin A1c measurement A1C test (Diabetic or Prediabetic) [facility] Start: 01-19-2023 Influenza vaccination B ON [facility] Comment on above: Postponed from 09/28 (Patient Refused) Postponed from 09/28 (Patient Refused) Start: 01-19-2023 Urine screening for protein [facility] Start: 01-12-2023 End: 01-12-2023 Patient encounter procedure 01/12/2023 Office Visit [place] [address] [facility] [place] [address] [facility] Start: 12-13-2022 End: 12-13-2022 Patient encounter procedure 12/13/2022 Office Visit Neurology Vale Evangelista MD [address] [id number] [facility] Neurology Specialist Start: 10-29-2022 COVID-19 Vaccine (2022- season) COVID-19 Vaccine ( season) [facility] Start: 10-29-2022 GFR test (Diabetes, CKD 3-4, OR last GFR 15-59) GFR test (Diabetes, CKD 3-4, OR last GFR 15-59) [facility] Start: 10-29-2022 Influenza vaccination Influenza Vacc ine [facility] Start: 10-29-2022 Lipid panel Lipids [facility] Start: 10-13-2022 Depression Monitoring Depression Mon itoring [facility] Start: 10-13-2022 Hemoglobin A1c measurement A1C test (Diabetic or Prediabetic) [facility] Start: 09-28-2022 Influenza vaccination Flu vaccine (# 1) [facility] Start: 09-08-2022 End: 09-08-2022 Patient encounter procedure 09/08/2022 Office Visit [place] [address] [facility] [place] [address] [facility] Start: 08-12-2022 End: 08-12-2022 Patient encounter procedure 08/12/2022 Office Visit Neurology Vale Evangelista MD [address] [place] [address] [facility] Neurology Specialist Start: 05-11-2022 End: 05-11-2022 Patient encounter procedure 05/11/2022 Office Visit Neurology Maira Morales, PRESCRIPTION CLERK LENSES - WAREHOUSE OPERATIONS ASSOCIATE [address] [place] [address] [facility] Neurology Specialist Start: 02-24-2022 End: 02-24-2022 Patient encounter procedure 02/24/2022 Appointment Physical Therapy Kingston Quiles, PT [facility] Start: 02-17-2022 End: 02-17-2022 Patient encounter procedure 02/17/2022 Appointment Physical Therapy Kingston Quiles, PT [facility] Start: 02-15-2022 End: 02-15-2022 Patient encounter procedure 02/15/2022 Appointment Physical Therapy Prasanth Felipe, VICE PRESIDENT OF FINANCE [facility] Start: 02-10-2022 End: 02-10-2022 Patient encounter procedure 02/10/2022 Appointment Physical Therapy Prasanth Felipe, VICE PRESIDENT OF FINANCE [facility] Start: 02-08-2022 End: 02-08-2022 Patient encounter procedure 02/08/2022 Appointment Physical Therapy Kingston Quiles, PT [facility] Start: 01-19-2022 End: 01-19-2022 Patient encounter procedure 01/19/2022 Office Visit [place] [address] [facility] [place] [address] [facility] Start: 01-14-2022 End: 01-14-2022 Patient encounter procedure 01/14/2022 Office Visit Neurology Maira Morales, PRESCRIPTION CLERK L[employer]ES - WAREHOUSE OPERATIONS ASSOCIATE [address] [facility] [address] [place] [address] [facility] Neurology Specialist Start: 01-11-2022 End: 01-11-2022 Patient encounter procedure 01/11/2022 Office Visit Neurology Maira Morales PRESCRIPTION CLERK [employer] - WAREHOUSE OPERATIONS ASSOCIATE [address] [facility] [address] [place] [address] [facility] Neurology Specialist Start: 11-20-2021 Lipid panel Lipids [facility] Start: 11-04-2021 Diabetic foot examination Diabetic foot [...] Diabetic retinal exam Diabetic retin al exam [facility] Start: 12-29-2019 Glaucoma screening Diabetic retinal exam [facility] Start: 12-20-2019 Annual Wellness Visi t (AWV) Annual Wellness Visit (AWV) [facility] Start: 2014 Fall Risk Screening Fall Risk Screen [facility] Start: 2009 Respiratory Syncytia l Virus (RSV) or age 60 yrs+ (1 - 1-dose 60+ series) Respiratory Syncytial Virus (RSV) or age 60 yrs+ (1 - 1-dose 60+ series) [facility] Start: 1994 Screening for malign ant neoplasm of colon [facility] Start: 1968 DTaP,Tdap and Td Vaccines (1 - Tdap) DTaP,Tdap and Td Vaccines (1 - Tdap) [facility] Start: 1968 DTaP/Tdap/Td vaccine (1 - Tdap) DTaP/Tdap/Td vaccine (1 - Tdap) [facility] Start: 07-15-1967 Adult BMI Follow Up Plan Adult BMI Follow Up Plan [facility] Start: 07-15-1967 Diabetic foot examination Diabetic Foot Exam [facility] Start: 07-15-1967 Hepatitis C screening Hepatitis C sc reen [facility] Start: 1961 Depression Screening Depression Scre ening [facility] Start: 07-15-1955 Pneumococcal 65+ yea rs Vaccine (1 - PCV) Pneumococcal 65+ years Vaccine (1 - PCV) [facility] Start: 07-15-1955 Pneumococcal 65+ yea rs Vaccine (1 of 2 - PCV) Pneumococcal 65+ years Vaccine (1 of 2 - PCV) [facility] Start: 1949 Glaucoma screening Diabetic Op hthalmology Exam [facility] Start: 1950 Medicare Annual Wellness Visit Medicare Annual Wellness Visit [facility] End: 06-23-2023 Basic Metabolic Panel w/ Reflex to MG Basic Metabolic Panel w/ Reflex to MG Lab Routine Daily for 7 Days starting 06/17/2023 until 06/23/2023, 1 completed [facility] Comment on above: Daily for 7 Days sta rting 06/17/2023 until 06/23/2023, 1 completed End: 06-21-2023 CBC W Auto Differential panel - Blood CBC with Auto Differential Lab Routine Daily for 5 Days starting 06/17/2023 until 06/21/2023, 1 completed [facility] Comment on above: Daily for 5 Days sta rting 06/17/2023 until 06/21/2023, 1 completed Cortisol Total Cortisol Total L ab Routine 06/17/2023 10:15 AM EDT [facility] Work Phone: EKG 12 Lead EKG 12 Lead ECG Routine 06/16/2023 11:19 AM EDT [facility] Glucose [Mass/volume ] in Serum or Plasma [employer] [facility] Comment on above: 4X Daily (AC & HS) u ntil discontinued starting 06/16/2023 As Needed until disc ontinued starting 06/16/2023 End: 09-07-2022 MRI BRAIN W WO CONTRAST [employer] Comment on above: 1 Occurrences starti ng 09/07/2022 until 09/07/2022 End: 06-17-2023 Nasal Cannula Oxygen Nasal Cannula Oxygen Respiratory Care Routine As Needed until discontinued starting 06/17/2023 [facility] Comment on above: As Needed until disc ontinued starting 06/17/2023 Nuclear stress test with myocardial perfusion Nuclear stress test with myocardial perfusion CV Stress/NM Stress Routine Near syncope Pre-syncope 06/17/2023 2:02 PM EDT [facility] Oxygen therapy [[facility] Data Set] Initiate Oxygen Therapy Protocol Respiratory Care Routine As Needed until discontinued starting 06/16/2023 [facility] Work Phone: Comment on above: As Needed until disc ontinued starting 06/16/2023 Immunizations Immunization Date Immunization Notes Care Provider [employer] 07-23-2021 zoster vaccine recombinant Nandini Rizzo VICE PRESIDENT OF FINANCE [facility] Work Phone: 05-12-2021 zoster vaccine recombinant Dandre Swanson MD Work Phone: [facility] 12-24-2020 COVID-19, MODERNA BL UE border, Primary or Immunocompromised, (age 12y+), IM, 100 mcg/0.5mL Dandre Swanson MD Work Phone: [employer] [facility] Work Phone: 05-22-2020 COVID-19, mRNA, LNP- S, PF, 100mcg/0.5mL Dose Naila Smith DO Work Phone[facility] 05-22-2020 COVID-19, [place] Vaccine , Vaccine Unspecified Vale Evangelista MD Work Phone: [facility] 04-24-2020 COVID-19, mRNA, LNP- S, PF, 100mcg/0.5mL Dose Naila Smith DO Work Phone: [employer] 04-24-2020 COVID-19, [place] Vaccine , Vaccine Unspecified Vale Evangelista MD Work Phone: [facility] Payers Date Payer Category Payer Medicare [id number] 2022 Medicare [id number] 1.2.8 [id number] 2021 Medicare [id number] 1. [id number] 1950 Unknown [id number] 2.16.8 40.1.602718.3.579.2.177 1949 Unknown [id number] 2.16.8 40.1.648718.3.579.2.177 1949 Unknown [id number] 2.16.8 40.1.656192.3.579.2.177 1949 Unknown [id number] 2.16.8 40.1.396494.3.579.2.177 1949 Unknown [id number] 2.16.8 40.1.634775.3.579.2.128 1949 Unknown [id number] 2.16.8 40.1.175986.3.579.2.128 1949 Unknown [id number] 2.16.8 40.1.607669.3.579.2.128 1949 Unknown [id number] 2.16.8 40.1.857895.3.579.2.1286 1949 Unknown [id number] 2.16.8 40.1.555236.3.579.2.1286 1949 Unknown [id number] 2.16.8 40.1.855650.3.579.2.1286 1949 Unknown [id number] 2.16.8 40.1.367140.3.579.2.1286 1949 Unknown [id number] 2.16.8 40.1.553958.3.579.2.1286 1949 Unknown [id number] 2.16.8 40.1.004632.3.579.2.1286 1949 Unknown [id number] 2.16.8 40.1.896559.3.579.2.1286 1949 Unknown [id number] 2.16.8 40.1.906429.3.579.2.1286 1949 Unknown [id number] 2.16.8 40.1.762670.3.579.2.1286 1949 Unknown [id number] 2.16. 840.1.224788.3.579.2.175 1949 Unknown [id number] 2.16. 840.1.050296.3.579.2.175 1949 Unknown [id number] 2.16. 840.1.214985.3.579.2.175 1949 Unknown [id number] 2.16.8 40.1.331377.3.579.2.176 1949 Unknown [id number] 2.16.8 40.1.315516.3.579.2.176 1949 Unknown [id number] 2.16.8 40.1.786105.3.579.2.176 Social History Date Type Detail Facility Start: 10-20-2017 End: 04-19-2023 Tobacco smoking status [facility] Ex-smoker [facility] [employer] Work Phone: Start: 05-03-1968 End: 05-04-2015 History of tobacco use Current smoker [employer] Phone: Start: 05-03-1968 End: 05-04-2015 History of tobacco use Cigarette Smoker [employer] Phone: Start: 10-20-2017 End: 04-10-2020 Cigarettes smoked current (pack per day) - Reported 1 [facility] Start: 10-20-2017 End: 04-19-2023 Tobacco use and exposure Smokeless tobacco non-user [employer] Phone: Start: 10-13-2021 End: 12-23-2023 Alcohol intake Current non-drinker of alcohol (finding) [employer] Phone: Start: 07-07-2021 History SDOH Financial 4 [employer] Phone: Start: 07-07-2021 End: 09-08-2022 History SDOH Food Worry 1 [employer] Phone: Start: 07-01-2020 End: 09-08-2022 History SDOH Transport Med 2 [employer] Phone: Start: 1950 Sex Assigned At Not on file B [employer] Phone: Start: 01-19-2022 End: 06-17-2023 Alcohol intake Current drinker of alcohol (finding) [employer] Phone: Start: 01-14-2022 Alcohol Comment socially [employer] Phone: Start: 01-04-2022 End: 01-14-2022 Exposure to SARS-CoV-2 (event) Not sure [facility] Start: 09-08-2022 History SDOH Physica l Activity DPW 3 [facility] Start: 09-08-2022 History SDOH Physica l Activity MPS 0 [facility] Start: 09-08-2022 History SDOH Financial 5 [facility] Start: 04-10-2020 End: 06-16-2023 [facility] Utilities [facility] Has the [employer], [employer], or water [employer] threatened to shut off services in your home in past 12Mo No [facility] How often to you hav e a drink containing alcohol? Never [facility] How many standard drinks containing alcohol do you have on a typical day? Patient does not drink [facility] (I/We) worried wheth er (my/our) food would run out before (I/we) got money to buy more. Never true [facility] Start: 05-03-2016 Alcohol Comment socially yearly [facility] Start: 10-01-2014 Sex Male (finding) [facility] NEGATED: Highlighted rowStart: HIEN History of tobacco use Passive smoker [facility] Work Phone: Medical Equipment Procedure Code Equipment Code Equipment Origin al Text Equipment Identifier Dates 1 strip by Other route 4 times daily Test 2 times a day & as needed for symptoms of irregular blood glucose. Dispense sufficient amount for indicated testing frequency plus additional to accommodate PRN testing needs. [id number] Start: 08-16-2019 1 each by In Vit ro route 4 times daily As needed. [id number] Start: 08-16-2019 USE DIRECTED [id number] Start: 09-03-2021 1 strip by Other route 4 times daily Test 2 times a day & as needed for symptoms of irregular blood glucose. Dispense sufficient amount for indicated testing frequency plus additional to accommodate PRN testing needs. [id number] Start: 06-22-2022 100 each by Does not apply route daily [id number] Start: 06-22-2022 USE DIRECTED [id number] Start: 01-05-2023 CHECK BLOOD SUGA R TWICE DAILY [id number] Start: 05-31-2023 CHECK BLOOD SUGA R TWICE DAILY [id number] Start: 05-31-2023 Brng Tib 72agf79 mm 0d Kn Ant - [id number] Start: 05-14-2016 Brng Tib 79/83mm x11mm 3d Std - [id number] Start: 10-22-2016 Cement Bn Pal[place] s Radpq 40g Rpl [id number] - [id number] Start: 05-14-2016 Cement Bn [place] s Radpq 40g Rpl [id number] - [id number] Start: 10-22-2016 Cmpt Fem Kn Lt 7 0mm Cr Cmnt - [id number] Start: 05-14-2016 Ty Tib As Mx 79m m Intlk Cocr - [id number] Start: 05-14-2016 Cmpt Ptlr Thn 34 mm 3 Pg Kn Ser - [id number] Start: 05-14-2016 Cmpt Ptlr Thn 8. 6mm 37mm 3 Pg - [id number] Start: 10-22-2016 Cmpt Fem Kn Rt 7 0mm Cr Cmnt - [id number] Start: 10-22-2016 Ty Tib 79mm Cocr Kn I Beam - [id number] Start: 10-22-2016 Clinical Notes 02-17-2022 to 04-27-2024 Javad Alegre, DO - 04/27/2024 11:59 PM ESTJavad Alegre, DO - 03/20/2024 11:59 PM Jj Alegre, DO - 02/24/2024 4:51 PM Jj Alegre, DO - 02/10/2024 5:43 PM ESTAttachments Note Date & Type Note Facility 04-27-2024 History of Present illness Narrative Patient Name: Susie Boyce Date of : 1950 Date of Service: 04/27/2024 [place] [facility] of Visit: Subsequent Visit Subjective Susie Boyce is a 73 y.o. male [facility]. No new problems reported by staff or patient. Nuplazid was stopped by Psychiatry [facility]. He did have a couple episodes of behaviors since that time. He has been assessing on his laundry and was found 1/2 naked in his room. Allergies: Penicillins and Simvastatin Code Status: [facility] BP 119/62 Pulse 66 Temp 36.6 C (97.8 F) Resp 18 Wt 77.9 kg (171 lb 12.8 oz) SpO2 97% BMI 26.91 kg/m Physical Exam Vitals reviewed. Constitutional: General: He is not in acute distress. Appearance: He is overweight. He is not ill-appearing. HENT: Head: Normocephalic. Cardiovascular: Rate and Rhythm: Normal rate and regular rhythm. Pulses: Normal pulses. Heart sounds: Normal heart sounds. No murmur heard. Pulmonary: Effort: Pulmonary effort is normal. No respiratory distress. Breath sounds: Normal breath sounds. No wheezing, rhonchi or rales. Musculoskeletal: Cervical back: Neck supple. Neurological: General: No focal deficit present. Mental Status: He is alert. He is disoriented. Gait: Gait abnormal (ambulates in a wheelchair now). Psychiatric: Attention and Perception: Attention normal. Mood and Affect: Mood and affect normal. Speech: Speech normal. Behavior: Behavior normal. Behavior is cooperative. Cognition and Memory: Cognition is impaired. Judgment: Judgment normal. Summary / Assessment / Plan 1. Parkinson's disease without dyskinesia or fluctuating manifestations (CMS-HCC) 2. Lewy body dementia with psychotic disturbance, unspecified dementia severity (CMS-HCC) 3. Neurogenic orthostatic hypotension (CMS-HCC) 4. Impaired gait See how he does off Nuplazid. Follow up with Psychiatry For further management. Continue current regimen. All medications reviewed and are medically necessary. ELECTRONICALLY SIGNED BY: Javad Alegre DO documented in this encounter [facility] 03-20-2024 History of Present illness Narrative Patient Name: Susie Boyce Date of : 1950 Date of Service: 03/20/2024 [place] [facility] [place] of Visit: Acute Visit Subjective Susie Boyce is a 73 y.o. male [facility] for problem visit. Nurses report low blood pressure. He has not had any recent falls. Patient denies problems. No recent delusions since starting Nuplazid. Allergies: Penicillins and Simvastatin Code Status: [facility] BP 97/51 Pulse 53 Temp 36.6 C (97.9 F) Resp 18 Wt 78.4 kg (172 lb 12.8 oz) SpO2 93% BMI 27.06 kg/m Physical Exam Vitals reviewed. Constitutional: General: He is not in acute distress. Appearance: He is overweight. He is not ill-appearing. HENT: Head: Normocephalic. Eyes: Extraocular Movements: Extraocular movements intact. Conjunctiva/sclera: [...] Tenderness: There is no abdominal tenderness. Musculoskeletal: Cervical back: Neck supple. Neurological: General: No focal deficit present. Mental Status: He is alert. He is disoriented. Gait: Gait abnormal (ambulates in a wheelchair now). Psychiatric: Attention and Perception: Attention normal. Mood and Affect: Mood and affect normal. Speech: Speech normal. Behavior: Behavior is not agitated. Behavior is cooperative. Cognition and Memory: Cognition is impaired. Judgment: Judgment normal. Summary / Assessment / Plan 1. Lewy body dementia with psychotic disturbance, unspecified dementia severity (CMS-HCC) 2. Parkinson's disease without dyskinesia or fluctuating manifestations (CMS-HCC) 3. Anxiety 4. Neurogenic orthostatic hypotension (CMS-HCC) His blood pressure is running a little low. He has a history of falls. He is on midodrine 5 mg 3 times a day. I am going to increase it to 10 mg 3 times a day. Continue other orders as directed medically stable. All medications reviewed and are medically necessary. ELECTRONICALLY SIGNED BY: Javad Alegre DO documented [facility] encounter [facility] [employer] 02-24-2024 History of Present illness Narrative Patient Name: Susie Boyce Date of : 1950 Date of Service: 02/24/2024 Facility: [facility] Type of Visit: Acute Visit Subjective Susie Boyce is a 73 y.o. male [facility] for problem [facility]. James continues with falls and behaviors. He fell again today trying to use the bathroom by himself but no injury. He fell a couple days ago and sustained a head laceration and needed to go to the ER. He had tests done in the ER. He is still agitated at times. He has called the police saying he is being held against his will. He believes his is having an affair and taking all of his money. He thought his son had and wanted to go to [place] to see him. Allergies: Penicillins and Simvastatin Code Status: [facility] BP 158/88 Pulse 62 Temp 36.5 C (97.7 F) Resp 20 SpO2 97% Physical Exam Vitals reviewed. Constitutional: General: He is not in acute distress. Appearance: He is overweight. He is not ill-appearing. Comments: Seen in dining room in wheelchair HENT: Head: Normocephalic. Comments: He has a dressing on the top of his head for recent head laceration Eyes: Extraocular Movements: Extraocular movements intact. Conjunctiva/sclera: [...] Tenderness: There is no abdominal tenderness. Musculoskeletal: Cervical back: Neck supple. Neurological: General: No focal deficit present. Mental [...] Comments: He said his daughter sent him [employer] Summary / Assessment / Plan 1. Lewy body dementia with psychotic disturbance, unspecified dementia severity (CMS-HCC) 2. Impaired gait 3. Recurrent falls 4. Laceration of scalp without foreign body, subsequent encounter He is having psychotic episodes of false beliefs of his having an affair, son dying etc. It is disruptive to his psyche and he reaches out inappropriately by calling the police. He does have parkinsons and I believe he is having psychosis from the Parkinson's. There is a medication FDA approved for this called Nuplazid. Will start 34 mg daily. He had an ECG done at the ER and his Qtc was 401. All other medications reviewed and are medically necessary. ELECTRONICALLY SIGNED BY: Javad Alegre DO documented in this encounter [facility] 02-10-2024 History of Present illness Narrative Patient Name: Susie Boyce Date of : 1950 Date of Service: 02/10/2024 Facility: [facility] Type of Visit: Acute Visit Subjective Susie Boyce is a 73 y.o. male seen [facility] for problem visit. James continues with behavioral problems. He called 911 yesterday and told the police he was being held against his will. He was upset with his because he said that she didn't RSVP for the family Mariela and that he was going to make chicken noodle soup. He gets agitated easily. He is on buspirone 5mg BID for about 6 weeks but doesn't seem to be helping. He has continued to fall and is now in a wheelchair. He didn't have any serious injuries. Allergies: Penicillins and Simvastatin Code Status: [facility] Wt 77.9 kg (171 lb 12.8 oz) [...] Comments: He said his daughter sent him [employer] Summary / Assessment / Plan 1. Parkinson's [...] Javad Alegre DO documented in this encounter [employer] 01-27-2024 History of Present illness Narrative Patient Name: Susie Boyce Date of : 1950 Date of Service: 01/27/2024 Facility: [facility] Type of Visit: Subsequent Visit Subjective [...] midodrine. Allergies: Penicillins and Simvastatin Code Status: [facility] BP 126/68 Pulse 66 Temp 36.1 C [...] Alzheimer's dementia with anxiety, unspecified dementia severity ([facility]) 2. Parkinson's disease without dyskinesia or fluctuating manifestations ([facility]) 3. Gastroesophageal reflux disease, unspecified whether esophagitis [...] Javad Alegre DO documented in this encounter [employer] 12-23-2023 History of Present illness Narrative Patient Name: Susie Boyce Date of : 1950 Date of Service: 12/23/2023 Facility: [facility] Type of Visit: Acute Visit Subjective Susie Boyce is a 73 y.o. male seen today at [facility] for regular visit. James has been increasingly [...] fine. Allergies: Penicillins and Simvastatin Code Status: [facility] BP 134/76 Pulse 76 Temp 36.6 C [...] Alzheimer's dementia with anxiety, unspecified dementia severity ([facility]) 2. Parkinson's disease without dyskinesia or fluctuating manifestations (CMS-HCC) 3. Anxiety 4. Impaired gait 5. Contusion of scalp, subsequent encounter He is maxed out on SSRI. He was recently started on namenda by psych. Will try buspirone 5 mg BID. Continue other orders as directed. All medications reviewed and are medically necessary. ELECTRONICALLY SIGNED BY: Javad Alegre DO [facility] 11-04-2023 History of Present illness Narrative Patient Name: Susie Boyce Date of : 1950 Date of Service: 11/04/2023 Facility: [facility] Type of Visit: Acute Visit Subjective Susie Boyce is a 73 y.o. male [facility]. James is in isolation because he has Covid. He had sinus congestion but feels fine now. He denies CP, SOB or fever. He was in therapy for recent falls. He had labs done and some were abnormal. Allergies: Penicillins and Simvastatin Code Status: [facility] BP 105/55 Pulse 53 Temp 36.6 C (97.9 F) Resp 18 SpO2 95% Physical Exam Constitutional: General: He is not in acute distress. Appearance: He is overweight. He is not ill-appearing. HENT: Head: Normocephalic. Eyes: Extraocular Movements: Extraocular movements intact. Conjunctiva/sclera: [...] Tenderness: There is no abdominal tenderness. Musculoskeletal: Cervical back: Neck supple. Lymphadenopathy: Cervical: No cervical adenopathy. Neurological: General: No focal deficit present. Mental Status: He is alert and oriented to person, place, and time. Psychiatric: Attention and Perception: Attention normal. Mood and Affect: Mood normal. Speech: Speech normal. Behavior: Behavior normal. Behavior is cooperative. Thought Content: Thought content normal. Cognition and Memory: Cognition normal. Judgment: Judgment normal. Labs: A1c 7.3% T. Prot.-5.7 Rest of CMP was normal Lipids at goal-total 110, trigs-119, HDL-35 is low; LDL-51. CBC wnl Summary / Assessment / Plan 1. COVID-19 2. Type 2 diabetes mellitus with diabetic neuropathy, with long-term current use of insulin ([facility]) 3. Late onset Alzheimer's dementia with anxiety, unspecified dementia severity ([facility]) 4. Primary hypertension 5. Low serum total protein level Medically stable. He is improved with covid. I had recommended Paxlovid but must not have agreed to it. A1c is acceptable at 7.3%. continue current regimen. All medications reviewed and are medically necessary. ELECTRONICALLY SIGNED BY: Javad Alegre DO documented in this encounter [facility] 10-26-2023 History of Present illness Narrative Patient Name: Susie Boyce Date of : 1950 Date of Service: 10/26/2023 Facility: [facility] Type of Visit: Subsequent Visit Subjective Susie Boyce is a 73 y.o. male [facility]. James fell recently and had to go to the ER and got pj in his head. He says he had a headache then but not now. He had his pj removed today. There was a message that he was complaining of neuropathic pain, likely due to diabetes. He says it isn't that bad and doesn't want any medication after discussing risks and benefits. No other new concerns. Allergies: Penicillins and Simvastatin Code Status: [facility] BP 135/72 Pulse 64 Temp 36.6 C (97.9 F) Resp 16 Wt 79.5 kg (175 lb 3.2 oz) SpO2 96% BMI 27.44 kg/m Physical Exam Constitutional: General: He is not in acute distress. Comments: Patient in dining room waiting for lunch. He is pleasant and cooperative. HENT: Head: Normocephalic. Cardiovascular: Rate and Rhythm: Normal rate and regular rhythm. Pulses: Normal pulses. Heart sounds: Normal heart sounds. Pulmonary: Effort: Pulmonary effort is normal. No respiratory distress. Breath sounds: Normal breath sounds. No wheezing, rhonchi or rales. Abdominal: General: Bowel sounds are normal. Palpations: Abdomen is soft. Tenderness: There is no abdominal tenderness. Skin: Comments: Incision intact and healing well. Neurological: General: No focal deficit present. Mental Status: He is alert. He is disoriented. Gait: Gait abnormal (ambulates with a cane). Psychiatric: Attention and Perception: Attention normal. Mood and Affect: Mood and affect normal. Cognition and Memory: Cognition is impaired. Memory is impaired. He exhibits impaired recent memory and impaired remote memory. Judgment: Judgment is inappropriate. Summary / Assessment / Plan 1. Parkinson's disease without dyskinesia or fluctuating manifestations ([facility]) 2. Laceration of scalp, subsequent encounter 3. Type 2 diabetes mellitus with diabetic neuropathy, with long-term current use of insulin ([facility]) Medically stable. He declined medication for his diabetic neuropathy. Risks and benefits were discussed. Scalp laceration is healing well. He does not have any headaches or other focal neurologic acute issues. All medications reviewed and are medically necessary. ELECTRONICALLY SIGNED BY: Javad Alegre DO [facility] 09-20-2023 History of Present illness Narrative Patient Name: Susie Boyce Date of : 1950 Date of Service: 09/20/2023 Facility: [facility] Type of Visit: Acute Visit Subjective Susie Boyce is a 73 y.o. male seen today at [facility] for problem visit. James has been having behaviors lately and his would like to to check him out and see if he needed medication changes. He is basically calling her all the time and wanting to leave and asking her to bring his truck so he can leave. He denies problems. He is not having any urinary incontinence issues. Allergies: Penicillins and Simvastatin [facility] There were no vitals taken for this visit. Physical Exam Constitutional: General: He is not in acute distress. Comments: Patient in dining room waiting for lunch. He is pleasant and cooperative. HENT: Head: Normocephalic. Cardiovascular: Rate and Rhythm: Normal rate and regular rhythm. Pulses: Normal pulses. Heart sounds: Normal heart sounds. Pulmonary: Effort: Pulmonary effort is normal. No respiratory distress. Breath sounds: Normal breath sounds. No wheezing, rhonchi or rales. Neurological: Mental Status: He is alert. Gait: Gait abnormal (ambulates with a cane). Psychiatric: Attention and Perception: Attention normal. Mood and Affect: Mood and affect normal. Cognition and Memory: Cognition is impaired. Memory is impaired. He exhibits impaired recent memory and impaired remote memory. Judgment: Judgment is inappropriate. Summary / Assessment / Plan 1. Late onset Alzheimer's dementia with anxiety, unspecified dementia severity ([facility]) 2. Urinary incontinence, unspecified type 3. Anxiety He is having behaviors that is affecting his relationship with his . He has unrealistic expectations of driving, leaving with . Will try to maximize aricept 23 mg daily. Will also stop oxybutynin since that can intefere with effectiveness of aricept. I will also a short course of lorazepam 0.5mg Q6 hrs prn x 14 days. Monitor for urinary problems. ELECTRONICALLY SIGNED BY: Javad Alegre DO documented in this encounter [employer] 09-14-2023 History of Present illness Narrative Patient Name: Susie Boyce Date of : 1950 Date of Service: 09/14/2023 Facility: [facility] Type of Visit: Acute Visit Subjective Susie Boyce is a 73 y.o. male seen today at [facility] for problem visit. James requested to see me again. He wants to know when he can get out of here. He wants to go home or go live with his son in [facility]. Nurses report abnormal labs for my review. Allergies: Penicillins and Simvastatin Code Status: [facility] BP 138/86 Pulse 58 Temp 36.7 C (98.1 F) Resp 17 SpO2 97% Physical Exam Constitutional: General: He is not in acute distress. Comments: Patient ambulating in the unit with cane HENT: Head: Normocephalic. Cardiovascular: Rate and Rhythm: Normal rate and regular rhythm. Pulses: Normal pulses. Heart sounds: Normal heart sounds. Pulmonary: Effort: Pulmonary effort is normal. No respiratory distress. Breath sounds: Normal breath sounds. No wheezing, rhonchi or rales. Neurological: Mental Status: He is alert. Gait: Gait abnormal (ambulates with a cane). Psychiatric: Attention and Perception: Attention normal. Mood and Affect: Affect is angry (mildly when discussing being here). Cognition and Memory: Cognition is impaired. Memory is impaired. He exhibits impaired recent memory and impaired remote memory. Judgment: Judgment is inappropriate. Labs: A1c 7.3%-H Lipids at goal except HDL low at 35 CMP ok except low protein at 5.7 CBC ok Summary / Assessment / Plan 1. Type 2 diabetes mellitus with complication, with long-term current use of insulin ([facility]) 2. Low HDL (under 40) 3. Late onset Alzheimer's dementia with anxiety, unspecified dementia severity ([facility]) 4. Hyperlipidemia, unspecified hyperlipidemia type 5. Low serum total protein level Increase alogliptin to 25 mg daily. Recheck CMP and A1c in 6 months Continue other orders as dir. All medications reviewed and are medically necessary. ELECTRONICALLY SIGNED BY: Javad Alegre DO documented in this encounter [employer] 09-09-2023 History of Present illness Narrative Patient Name: Susie Boyce Date of : 1950 Date of Service: 09/09/2023 Facility: [facility] Type of Visit: Subsequent Visit Subjective Susie Boyce is a 73 y.o. male seen today at [facility] for problem visit. James requested to see me regarding his medication. He thought I made an adjustment with his blood pressure medication but he only takes midodrine for low BP. It was a little elevated today. He fell recently. He says he didn't pass out. He has had no recent falls. No urinary issues. Allergies: Penicillins and Simvastatin Code Status: [facility] BP 144/71 Wt 81.5 kg (179 lb 9.6 oz) BMI 28.13 kg/m Physical Exam Constitutional: General: He is not in acute distress. Comments: Patient ambulating in the unit with cane HENT: Head: Normocephalic. Cardiovascular: Rate and Rhythm: Normal rate and regular rhythm. Pulses: Normal pulses. Heart sounds: Normal heart sounds. Pulmonary: Effort: Pulmonary effort is normal. No respiratory distress. Breath sounds: Normal breath sounds. No wheezing, rhonchi or rales. Abdominal: General: Bowel sounds are normal. Palpations: Abdomen is soft. Tenderness: There is no abdominal tenderness. Neurological: Mental Status: He is alert. Gait: Gait abnormal (ambulates with a cane). Summary / Assessment / Plan 1. Parkinson's disease without dyskinesia or fluctuating manifestations (CMS-HCC) 2. Hypotension, unspecified hypotension type 3. Urinary incontinence, unspecified type 4. Primary hypertension He is medically stable. Consider discontinuing oxybutynin. All other medications reviewed and are medically necessary. ELECTRONICALLY SIGNED BY: Javad Alegre DO documented in this encounter [facility] 09-02-2023 History of Present illness Narrative Images from the original note were not included. Patient Name: Susie Boyce Date of : 1950 Date of Service: 09/02/2023 Facility: [facility] Type of Visit: Acute Visit Subjective Susie Boyce is a 73 y.o. male seen today at [facility] for problem visit. Staff reports that James fell earlier today and landed on his right buttock. James confirms this. It hurts a little but is able to ambulate. He got dizzy before it happened. He has had trouble with low BP in the past. He is on midodrine. He didn't pass out. He doesn't have any trouble with urinary incontinence. Allergies: Penicillins and Simvastatin Code Status: [facility] BP 144/89 Pulse 50 Temp 36.6 C (97.9 F) Resp 18 SpO2 96% Physical Exam Vitals reviewed. HENT: Head: Normocephalic. Cardiovascular: Rate and Rhythm: Normal rate and regular rhythm. Pulses: Normal pulses. Heart sounds: Normal heart sounds. No murmur heard. Pulmonary: Effort: Pulmonary effort is normal. No respiratory distress. Breath sounds: Normal breath sounds. No wheezing, rhonchi or rales. Musculoskeletal: General: No deformity. Cervical back: Neck supple. Left upper leg: Tenderness present. Right lower leg: No edema. Left lower leg: No edema. Legs: Neurological: General: No focal deficit present. Mental Status: He is alert and oriented to person, place, and time. Psychiatric: Attention and Perception: Attention normal. Mood and Affect: Mood normal. Speech: Speech normal. Behavior: Behavior normal. Behavior is cooperative. Thought Content: Thought content normal. Judgment: Judgment normal. Summary / Assessment / Plan 1. Type 2 diabetes mellitus with complication, with long-term current use of insulin ([facility]) 2. Contusion of left buttock 3. Late onset Alzheimer's dementia with anxiety, unspecified dementia severity ([facility]) 4. Parkinson's disease without dyskinesia or fluctuating manifestations ([facility]) 5. Hyperlipidemia, unspecified hyperlipidemia type I'm going to decrease oxybutynin ER to 5 mg daily for a GDR as it is an anticholinergic and may cause dizziness. Check CMP, CBC, lipid panel and A1c. Continue other orders as dir. All other medications reviewed and are medically necessary. ELECTRONICALLY SIGNED BY: Javad Alegre DO documented in this encounter [facility] 08-05-2023 History of Present illness Narrative Patient Name: Susie Boyce Date of : 1950 Date of Service: 08/05/2023 Facility: [facility] Type of Visit: Admission H&P Subjective Susie Boyce is a 73 y.o. male [facility] H&P. HPI Past Medical History: Diagnosis Date AAA (abdominal aortic aneurysm) ([facility]) Anxiety Arthritis generalized Dental disease crowns Diabetes mellitus type 2, controlled ([facility]) on oral and insulin, checks sugars twice daily Hydrocele in adult Left Hyperlipidemia Inguinal hernia Left Inguinal PONV (postoperative nausea and vomiting) Skin cancer Visual impairment WEARS GLASSES Past Surgical History: Procedure Laterality Date CLOSURE MOHS NASAL ALA LEFT Left 12/19/2017 Performed by Pat Bay MD at [facility] COLONOSCOPY DIAGNOSTIC / SCREENING N/A 04/19/2023 Performed by Andrzej Fine MD at [facility] ESOPHAGOGASTRODUODENOSCOPY BIOPSY N/A 04/18/2023 Performed by Andrzej Fine MD at [facility] HYDROCELE EXCISION / REPAIR INGUINAL HERNIA REPAIR Left x2 Inguinal JOINT REPLACEMENT Left KNEE SURGERY Bilateral scope REPLACMENT TOTAL JOINT KNEE Right 10/22/2016 Performed by Eduardo Hennessy MD at [facility] REPLACMENT TOTAL JOINT KNEE Left 05/14/2016 Performed by Derrek Arshad MD at [facility] TONSIL SURGERY childhood TRACHEOSTOMY CLOSURE 1951 TRACHEOSTOMY TUBE PLACEMENT 1951 Family History Problem Relation Age of Onset Anesthesia problems Neg Hx Allergies: Penicillins and Simvastatin Code Status: DNRCC The following portions of the patient's history were reviewed and updated as appropriate: allergies, current medications, past family history, past medical history, past social history, past surgical history, problem list, and medication reconciliation was completed including current medication and post discharge medication. Review of Systems Constitutional: Negative. HENT: Negative. Eyes: Negative. Respiratory: Negative. Cardiovascular: Negative. Gastrointestinal: Negative. Endocrine: Negative. Genitourinary: Negative. Musculoskeletal: Negative. Skin: Negative. Neurological: Positive for tremors. Psychiatric/Behavioral: Positive for behavioral problems, confusion and decreased concentration. BP 110/62 Pulse 60 Temp 36.5 C (97.7 F) Resp 17 Ht 170.2 cm (5' 7 ) Wt 82.6 kg (182 lb) SpO2 99% BMI 28.51 kg/m Physical Exam Vitals reviewed. Constitutional: General: He is not in acute distress. HENT: Head: Normocephalic and atraumatic. Right Ear: External ear normal. Left Ear: External ear normal. Eyes: General: No scleral icterus. Extraocular Movements: Extraocular movements intact. Conjunctiva/sclera: Conjunctivae [...] Tenderness: There is no abdominal tenderness. Musculoskeletal: Cervical back: Neck supple. Right lower leg: No edema. Left lower leg: No edema. Lymphadenopathy: Cervical: No cervical adenopathy. Skin: General: Skin is warm and dry. Neurological: General: No focal deficit present. Mental Status: He is alert. He is disoriented. Cranial Nerves: Cranial nerves 2-12 are intact. Motor: Tremor present. Gait: Gait abnormal. Comments: He thought it was August 08, 2023 Psychiatric: Mood and Affect: Mood normal. Behavior: Behavior normal. Thought Content: Thought content normal. Judgment: Judgment normal. Assessment/Plan Summary / Assessment / Plan 1. Parkinson's disease without dyskinesia or fluctuating manifestations ([facility]) 2. Late onset Alzheimer's dementia with other behavioral disturbance, unspecified dementia severity ([facility]) 3. Depression, unspecified depression type 4. Type 2 diabetes mellitus with diabetic neuropathy, with long-term current use of insulin ([facility]) James was admitted to [facility] from [place] inpatient [facility] unit for dementia with behavioral disturbances. It said that he had severe dementia disturbances but I do not think it is severe. Continue his current medications. He is a DNR comfort care. Poor prognosis. He says he is planning on going back home to live with his but I am not sure what the custodial plans are for him. He probably needs close supervision. ELECTRONICALLY SIGNED BY: Javad Alegre DO documented in this encounter [facility] 06-17-2023 History of Present illness Narrative The [...] Documentation: Carbidopa Levodopa 25/250MG Tablets and Pyridostimine [place] 60MG tablets on hold, PT has plenty at home per . Midodrine 2.5MG tablets filled for 10 day supply with ins override since Sent original prescription to mail order. Midodrine was dropped off to PT's room and signed for by Bettie, of PT 4:36PM. 06/17/23 Ok to dicharge per family wish if cleared by cardiology and neurology Bertram Nguyen MD 06/17/2023 [facility] Occupational Therapy Evaluation Date: 06/17/23 Patient Name: Susie Boyce Room: Account: [id number] : 1950 (72 y.o.) Gender: male Discharge [...] Walker accessible Home Equipment: Cane, Walker, rolling, Roofer Assistant (gait belt, glucometer) ADL Assistance: Independent Homemaking Assistance: Needs assistance (Spouse mainly completes cleaning, cooking, laundry. 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 Since then he has seen neurology who increased donepezil to 15 mg. Was also to admitted to [facility] for fatigue, dark stools and [...] Facility-Administered Medications: None documented in this encounter [facility] 06-17-2023 Hospital Discharge instructions Pilar [...] Discharging Nurse: Kaykay COHEN Discharging Hospital Unit/Room#: 3/2043-01 Discharging Unit Emergency Contact: Extended Emergency Contact Information Primary Emergency Contact: Bettie Boyce [facility] Relation: Spouse Secondary Emergency Contact: Mikki [...] complication, with long-term current use of insulin ([facility]) E11.9, Z79.4 Osteoarthritis of knee M17.9 Depression F32.A Osteoarthritis of right knee M17.11 Recurrent major depressive disorder, in partial remission ([facility]) 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 Medication education and monitoring per protocol. Patient's personal belongings (please select all that are sent with patient): Glasses RN SIGNATURE: Timur Aldana RNPRE OWNED SALES CONSULTANT/SOCIAL WORK SECTION Inpatient Status Date: 06/16/2023 Readmission Risk Assessment Score: Readmission Risk Risk of Unplanned Readmission: 12 Discharging to Facility/ Agency [facility] [address] [facility] [address] Fax Dialysis Facility (if applicable) Name: Address: Dialysis Schedule: Phone: Fax: Housing Officer/Shank Maker signature: PHYSICIAN SECTION Prognosis: Fair Condition at [...] attachments cannot be sent through Care Everywhere.midodrine (Burmese)Lightheadedness or Faintness (Burmese)Orthostatic Hypotension (Burmese)Seizure (Burmese)Caregiving: Making a Home Safe: General Info (Burmese)Diabetes Diet Meal Planning: General Info (Burmese)documented in this encounter [facility] 04-27-2023 Miscellaneous Notes Called patient to inform of benign biopsies from colonoscopy and EGD at [facility]. Patient can repeat colonoscopy in 3-5 years for CRC screening, depending upon health status. documented in this encounter [employer] 04-27-2023 Telephone encounter Note Called patient to inform of benign biopsies from colonoscopy and EGD at [facility]. Patient can repeat colonoscopy in 3-5 years for CRC screening, depending upon health status. [employer] Work Phone: 01-25-2023 Note [id number] Susie Boyce 1950 M Date Provider Department Center 01/25/2023 5732-MARAL GIORDANO MP REHAB PSY Medical Pavi No family history on file Reason for Visit and Comments: Cognitive Difficulties [Other] [facility] 01-25-2023 Note OUTPATIENT REHABILIT ATCOUNT INCLUDES THE [facility] NEUROPSYCHOLOGY [address] [facility] [address] FAX: [phone] NEUROPSYCHOLOGICAL EVALUATION DATES OF SERVICE: 01/25/2023 DIAGNOSIS: R41.3 Other amnesia DATE OF ONSET: Unknown DATE OF : 1950 AGE: 72 years REASON FOR REFERRAL: This is the initial neuropsychological evaluation of Mr. Susie Boyce, a 72-year-old, right-handed gentleman who was referred for this evaluation by Vale Evangelista MD ([facility]) to determine present neurocognitive functioning in [...] to be. Review of medical records from [facility] include a neurology office visit with [...] therapy was cost prohibitive. Records from [facility] include an Occupational Therapy Technology Sales Representative Rehabilitation Evaluation conducted on 10/26/2022 by Pat Wheeler OTR/Renate, CDRS, CDI. The note indicates that [...] but was otherwise normal. CURRENT MEDICATIONS: From [facility], Mr. Boyce reports he is taking carbidopa-levodopa 4 times per day, metformin, insulin, Prozac, atorvastatin, lisinopril, vitamin B12, and recently started donepezil. [facility] records add ibuprofen. PAST MEDICAL HISTORY: Mr. Boyce reports history of Parkinson's disease and diabetes. [facility] indicate additional history of cervical [...] sugar. He repo (more content not included)... [facility] 10-26-2022 Note Occupational Therapy Occupational Therapy Evaluation Technology Sales Representative Rehab Patient Name: Susie Boyce : 1950 [...] 72-year-old male who was referred to the bus driver/monitor rehab clinic for a functional community mobility [...] vitamin B12, lisinopril, Prozac. License Number: [id number]. State: [place]. Expiration Date: 2026. License Restrictions: B. Lens. Previous Technology Sales Representative Eval: No Vehicle Make and Model: [employer] [place]. Prior difficulties with driving/Citations/Navigation: No accidents, citations, or navigational errors reported. Last time driven: 10/26/2022. Current means of community mobility: Self. Type of traffic driven: All. Reports daily driving, mostly surface streets. Golfs 3 times a week. Previous frequency with driving and reason: [employer] leisure Support system: Resides with . Primary Technology Sales Representative/Passenger: Primary bus driver/monitor. Necessity for eval: Medical condition recent diagnosis [...] wears glasses. He follows up with an wildlife removal specialist yearly. He reports no visual changes, denies diplopia or blurriness. Range of Motion: Right eye: Full. Left eye: Full. Both eyes: Full. Convergence: Normal. Saccades: Horizontal and vertical. Mild reduction in speed. Right Field: Direct fixation. Left Field: Direct fixation. Pursuits: Sustains fixation. [employer] Technology Sales Representative Rehab Vision Test Peripheral [place] Left Eye: [...] commands without difficulty Communication: Intact Hearing: Intact [place] Cognitive Assessment: Evaluates orientation and general cognitive [...] memory skills immediate and delayed, slight reduction. [place] Making Part B: Evaluates divided attention and [...] WNL [place] (more content not included)... [facility] 02-17-2022 Hospital course Narrative Images from the original note were not included. [] [facility] [address] P: F: [x] [facility] Out[facility] Therapy [address] P: F: [] [facility] Out[facility] Rehabilitation & Therapy [address] P: F: [] [facility] Out[facility] Therapy [address] P: F: [] [facility] [address] P: F: Physical Therapy Discharge Note Date: 02/17/2022 Patient: Susie Boyce : 1950 Physician: JIM Jaramillo Insurance: G20 (ICD-10-CM) - Parkinson's disease (HCC) Medical Diagnosis: [employer] Medicare (N) Rehab Codes: R26.89, M62.81, R29.3 Next 's appt.: 05/11/21 Date of symptom onset: 01/14/22 Visit# / total visits: /; Progress note for Medicare patient due at visit 8 Cancels/No Shows: 0 Date of initial visit: 01/25/22 Date of final visit: 02/17/22 Subjective: Pain: [] Yes [x] No Location: N/A Pain Rating: (0-10 scale) 0/10 Pain altered Tx: [x] No [] Yes Action: Comments: Pt notes he just arrived from the dentist, doing well. Leaves for [place] next week. Objective: Test Measurements: see goal [...] for your referral. documented in this encounter [employer] Phone: Evaluation note Diagnosis Tremors of nervous system Abnormal involuntary movements Type 2 diabetes mellitus without complication, with long-term current use of insulin (HCC) Other hyperlipidemia documented in this encounter [employer] Phone: evaluation note* Diagnosis Tremors of nervous system Abnormal involuntary movements documented in this encounter [employer] Phone: evaluation note* Diagnosis Tremors of nervous system Abnormal involuntary movements Cervical arthritis Cervical spondylosis without myelopathy Gait abnormality Abnormality of gait documented in this encounter [employer] Phone: evaluation note* Diagnosis B12 deficiency Other B-complex deficiencies documented in this encounter [employer] Phone: evaluation note* Diagnosis Cognitive impairment Unspecified persistent mental disorders due to conditions classified elsewhere [facility] Diagnosis Near syncope- Primary Syncope and collapse Near syncope Syncope and collapse Pre-syncope Syncope and collapse Parkinson's disease without dyskinesia or fluctuating manifestations (HCC) documented [facility] this [facility]* Diagnosis Lewy body dementia with psychotic disturbance, unspecified dementia severity ([facility]-HCC)- Primary Impaired gait Recurrent falls Laceration of scalp without foreign body, subsequent encounter documented in this encounter [facility]* Diagnosis Lewy body dementia with psychotic disturbance, unspecified dementia severity ([facility])- Primary Parkinson's disease without dyskinesia or fluctuating manifestations ([facility]-HCC) Anxiety Anxiety state, unspecified Neurogenic orthostatic hypotension ([facility]-HCC) documented in this encounter [facility]* Diagnosis Parkinson's disease without dyskinesia or fluctuating manifestations ([facility]-HCC)- Primary Late onset Alzheimer's dementia with other behavioral disturbance, unspecified dementia severity ([facility]-HCC) Depression, unspecified depression type Type 2 diabetes mellitus with diabetic neuropathy, with long-term current use of insulin ([facility]) documented in this encounter [facility]* Diagnosis Type 2 diabetes mellitus with complication, with long-term current use of insulin ([facility]-HCC)- Primary Contusion of left buttock Late onset Alzheimer's dementia with anxiety, unspecified dementia severity ([facility]-H[facility]) Parkinson's disease without dyskinesia or fluctuating manifestations ([facility]-HCC) Hyperlipidemia, unspecified hyperlipidemia type documented in this encounter [facility]* Diagnosis Parkinson's disease without dyskinesia or fluctuating manifestations ([facility]-HCC)- Primary Hypotension, unspecified hypotension type Urinary incontinence, unspecified type Primary hypertension Unspecified essential hypertension documented in this encounter [facility]* Diagnosis Type 2 diabetes mellitus with complication, with long-term current use of insulin ([facility])- Primary Low HDL (under 40) Late onset Alzheimer's dementia with anxiety, unspecified dementia severity ([facility]-HCC) Hyperlipidemia, unspecified hyperlipidemia type Low serum total protein level documented in this encounter [facility]* Diagnosis Late onset Alzheimer's dementia with anxiety, unspecified dementia severity (CMS-HCC)- Primary Urinary incontinence, unspecified type Anxiety Anxiety state, unspecified [facility] Diagnosis COVID-19- Primary Type 2 diabetes mellitus with diabetic neuropathy, with long-term current use of insulin (CMS-HCC) Late onset Alzheimer's dementia with anxiety, unspecified dementia severity (CMS-HCC) Primary hypertension Unspecified essential hypertension Low serum total protein level [facility] Diagnosis Parkinson's disease without dyskinesia or fluctuating manifestations (CMS-HCC)- Primary Laceration of scalp, subsequent encounter Type 2 diabetes mellitus with diabetic neuropathy, with long-term current use of insulin (CMS-HCC) [facility] [...] type [facility] Diagnosis Parkinson's disease without dyskinesia or fluctuating manifestations (CMS-HCC)- Primary Lewy body dementia with psychotic disturbance, unspecified dementia severity (CMS-HCC) Neurogenic orthostatic hypotension (CMS-HCC) Impaired gait documented [facility] [...] Name Relationship Healthcare Agent Relationship Communication Bettie Carli Spouse Primary Decision Maker Healthcare Agents on File Name Relationship Healthcare Agent Relationship Communication Bettie Carli Spouse Primary Decision Maker Healthcare Agents on File Name Relationship Healthcare Agent Relationship Communication Bettiejunie Boyce Spouse Primary Decision Maker Healthcare Agents on File Name Relationship Healthcare Agent Relationship Communication Bettie Carli Spouse Primary Decision Maker Healthcare Agents on File Name Relationship Healthcare Agent Relationship Communication Bettie Carli Spouse Primary Decision Maker Healthcare Agents on File Name Relationship Healthcare Agent Relationship Communication Bettie Carli Spouse Primary Decision Maker Healthcare Agents on File Name Relationship Healthcare Agent Relationship Communication Bettie Carli Spouse Primary Decision Maker Latest Code Status on File Code Status Date Activated Date Inactivated Comments DNR-CCA 06/16/2023 1:53 PM Code Status History Code Status Date Activated Date Inactivated Comments DNR-CCA 06/16/2023 1:53 PM 06/16/2023 1:53 PM Healthcare Agents on File Name Relationship Healthcare Agent Relationship Communication Bettiejunie Boyce Spouse Primary Decision Maker Latest Code [...] Documents on File Type Date Recorded Patient Caterer'S Aide Expl anation Durable Power of Communications Equipment Installer 04/16/2023 6:37 PM [facility] DNRCC 024 Date Activated Date Inactivated Comments 04/16/2023 6:43 PM 04/20/2023 5:28 PM Latest Code Status on File Code Status Date Activated Date Inactivated Comments DNR Comfort Care Arrest (DNR-CCA) [place] 04/16/2023 6:43 PM 04/20/2023 5:28 PM Reason for Referral Specialty Diagnoses / Procedures Referred By Contac t Referred To Contact Radiology Diagnoses Tremors of nervous system Cervical arthritis Gait abnormality R25.1 (ICD-10-CM) - Tremors of nervous system Procedures MRI CERVICAL SPINE WO CONTRAST [place], CERV SPINE [address] [place] [address] [address] [facility] [place] [address] [place] [address] Referral ID Status Reason Start Date Expiration Date Visits Re quested Visits Authorized [id number] Closed 12/21/2021 12/05/2022 1 0 Specialty Diagnoses / Procedures Referred By Contac t Referred To Contact Radiology Diagnoses Cognitive impairment Procedures MRI BRAIN W WO CONTRAST Vale Evangelista MD [address] [address] Referral ID Status Reason Start Date Expiration Date Visits Re quested Visits Authorized [id number] Closed 09/03/2022 08/19/2023 1 1 Summary Purpose Family History No Family History Records FoundNo Family History Records FoundNo Family History Records FoundNo Family History Records FoundNo Family History Records Found Additional Source Comments Care Teams (unrecognized sec tion and content) Pigment Pumper Relationship Specialty [place] [address] [place] [address] [place] [address] PCP - General Family Medicine 02/13/15 Pigment Pumper Relationship Specialty [place] [address] [place] [address] PCP - General Family Medicine 02/13/15 Pigment Pumper Relationship Specialty Start [place] [address] [place] [address] PCP - General Family Medicine 02/13/15 Pigment Pumper Relationship Specialty [place] [address] [place] [address] PCP - General Family Medicine 02/13/15 Pigment Pumper Relationship Specialty Start [place] [address] [place] [address] PCP - General Family Medicine 02/13/15 Pigment Pumper Relationship Specialty Start [place] [address] [place] [address] PCP - General Family Medicine 02/13/15 Pigment Pumper Relationship Specialty Start [place] [address] [place] [address] PCP - General Family Medicine 02/13/15 Pigment Pumper Relationship Specialty Start [place] [address] [place] [address] PCP - General Family Medicine 02/13/15 Pigment Pumper Relationship Specialty [place] [address] [place] [address] PCP - General Family Medicine 02/13/15 Pigment Pumper Relationship Specialty [place] [address] [place] [address] PCP - General [facility] 02/13/15 Pigment Pumper Relationship Specialty Start [place] [address] [place] [address] PCP - General 01/07/14 Pigment Pumper Relationship Specialty [place] [address] [place] [address] PCP - General 01/07/14 Pigment Pumper Relationship Specialty [place] [address] [place] [address] PCP - General 01/07/14 Pigment Pumper Relationship Specialty [place] [address] [place] [address] PCP - General 01/07/14 Pigment Pumper Relationship Specialty [place] [address] [place] [address] PCP - General 01/07/14 Pigment Pumper Relationship Specialty [place] [address] [facility] [place] [address] PCP - General 01/07/14 Pigment Pumper Relationship Specialty [place] [address] [facility] [place] [address] PCP - [facility] 01/07/14 Pigment Pumper Relationship Specialty [place] [address] [facility] [place] [address] PCP - [facility] 01/07/14 Reason for Visit (unrecogniz ed section and content) Specialty Diagnoses / Procedures Referred By Contac t Referred To Contact Radiology Diagnoses Tremors of nervous system Cervical arthritis Gait abnormality R25.1 (ICD-10-CM) - Tremors of nervous system Procedures MRI CERVICAL SPINE [place], [place] [address] [place] [address] [facility] [place] [address] Referral ID Status Reason Start Date Expiration Date Visits Re quested Visits Authorized [id number] Closed 12/21/2021 12/05/2022 1 0 Specialty Diagnoses / Procedures Referred By Contac t Referred To Contact Physical Therapist / Physical Therapy Diagnoses Parkinson's disease (HCC) Maira Morales, PRESCRIPTION CLERK LENSES - WAREHOUSE OPERATIONS ASSOCIATE [address] [place] [address] [facility] [address] [place] [address] Referral ID Status Reason Start Date Expiration Date Visits Requested Visits Authorized [id number] Authorized Specialty Services Required 2 01/14/2023 1 99 Specialty Diagnoses / Procedures Referred By Contac t Referred To Contact Radiology Diagnoses Cognitive impairment Procedures MRI BRAIN W WO CONTRAST Vale Evangelista MD [address] [facility] [address] [place] [address] Referral ID Status Reason Start Date Expiration Date Visits Re quested Visits Authorized [id number] Closed 09/03/2022 08/19/2023 1 1 Reason Comments Loss of Consciousness Specialty Diagnoses / Procedures Referred By Brian centeno Referred To Contact Diagnoses Pre-syncope Near syncope Marta Lozano MD [address] [facility] [address] [place] [address] [facility] [address] [place] [address] Referral ID Status Reason Start Date Expiration Date Visits Re quested Visits Authorized [id number] 1 1 Specialty Diagnoses / Procedures Referred By Brian centeno Referred To Contact Diagnoses Pre-syncope Near syncope Marta Lozano MD [address] [facility] [address] [place] [address] [facility] [address] [place] [address] (unrecognized sect ion and content) No Status Records FoundNo Status Records FoundNo Status Records FoundNo Status Records FoundNo Status Records Found INFORMATION SOURCE (unrecogn ized section and content) DATE CREATED AUTHOR [facility]2022 [facility] DATE CREATED AUTHOR AUTHOR'S ORGANIZ ATION 01/31/2023 [facility] DATE CREATED AUTHOR AUTHOR'S ORGANIZ ATION 04/27/2023 [facility] DATE CREATED AUTHOR AUTHOR'S ORGANIZ ATION 06/25/2023 [facility] DATE CREATED AUTHOR AUTHOR'S ORGANIZ ATION 08/05/[address] [facility] Ordered Prescriptions (unrec ognized section and [...] Discontinued 161 (Given - Provider: Pilar Aldana RN)195 (Given - Provider: Michael Calvo RN) 1005 (Given - Provider: Donnell Douglass)1340 (Not Given - Provider: Pilar Aldana RN - Reason: Other - Comment: AM dose was given late due to NPO)165 (Given - Provider: Pilar Aldana RN)2100 (Due) donepezil (ARICEPT) tablet 15 mg 15 mg, Oral, NIGHTLY, First dose on Tue06/16/23 at 2100, Until Discontinued 1958 (Given - Provider: Michael Calvo RN) 2100 (Due) enoxaparin (LOVENOX) injection 40 mg 40 [...] dose on Tue06/16/23 at 1500, Until Discontinued 1424 (Not Given - Provider: Pilar Aldana RN - Reason: Patient took at home) 0953 (Given - Provider: Donnell Douglass) FLUoxetine (PROZAC) capsule 40 mg 40 mg, Oral, DAILY, First dose on Tue06/16/23 at 1500, Until Discontinued 1425 (Not Given - Provider: Pilar Aldana RN [...] 1958 (Given - Provider: Michael Calvo RN) 2100 (Due) pyRIDostigmine (MESTINON) tablet 60 mg 60 mg, Oral, DAILY, First dose on Tue06/17/23 at 0900, Until Discontinued 0955 (Given - Provid er: Donnell Douglass) sodium chloride 0.9 % bolus 1,000 mL (COMPLETED) 1,000 mL (12 mL/kg), IntraVENous, at 2,000 mL/hr, Administer over 0.5 Hours, ONCE, On Tue06/16/23 at 1130, For 1 dose 1153 (New Bag - Provider: Sandi Razo RN)1223 (Stopped - Provider: Pilar Aldana, NOEL) sodium chloride flush 0.9 % injection 5-40 [...] 4) 40 mEq, Oral, PRN, Starting on Tue06/16/23 at 1352, Until Discontinued, Potassium Replacement, May [...] med 40 mEq, Oral, PRN, Starting on Luan 06/16/23 at 1352, Until Discontinued, Per Potassium [...] BE BASED ON THE PRIMARY CLINICAL RECORDS. [employer] provides no warranty or guarantee of the accuracy or completeness of information in this document.
--- NOTE | 2024-05-11 01:40 | PC.NURSE ---
laceration to left eyebrow cleansed with Hibiclens solution. Wet gauze placed over laceration to keep moist while patient goes for imaging. Patient tolerated well. He denies any pain at this time.
[2024-05-11 01:42] VITALS: O2SAT 100
[2024-05-11 01:42] LABS: Basophils Absolute Auto 0.1 10^3/uL (0.0-0.1); Basophils Percent Auto 0.5 % (0.2-2.0); Eosinophils Absolute Auto 0.2 10^3/uL (0.0-0.7); Eosinophils Percent Auto 1.7 % (0.9-7.0); Hematocrit 45.3 % (42.0-54.0); Hemoglobin 15.2 g/dL (14.0-18.0); Immature Granulocytes Abs Auto 0.04 10^3/uL (0.00-0.03); Immature Granulocytes Pct Auto 0.4 % (0.0-0.5); Lymphocytes Absolute Auto 1.3 10^3/uL (1.2-3.8); Lymphocytes Percent Auto 12.5 % (20.5-60.0); Mean Corpuscular HGB Conc 33.6 g/dL (29.9-35.2); Mean Corpuscular Hemoglobin 30.8 pg (25.9-34.0); Mean Corpuscular Volume 91.7 fL (80.0-94.0); Mean Platelet Volume 8.8 fL (9.5-13.5); Monocytes Absolute Auto 0.9 10^3/uL (0.3-0.8); Monocytes Percent Auto 8.2 % (1.7-12.0); Neutrophils Absolute Auto 8.1 10^3/uL (1.4-6.5); Neutrophils Percent Auto 76.7 % (43.0-75.0); Platelet Count 340 10^3/uL (150-450); Red Blood Count 4.94 10^6/uL (4.70-6.10); Red Cell Distribution Width 12.2 % (11.0-15.0); White Blood Count 10.6 10^3/uL (4.0-11.0)
--- NOTE | 2024-05-11 01:43 | PC.NURSE ---
Patient arrived by EMS from [facility] after falling forward out of his wheelchair onto tile floor. Staff states during report that he has fallen multiple times in the past week and hit his head. Patient states that he has had stitches and pj several times recently for falling and hitting his head. He is not on any blood thinners, he arrives A/O x4, he does have hx of Parkinson's and dementia, he is a DNR-CC.
[2024-05-11 01:58] LABS: Alanine Aminotransferase 18 U/L (16-63); Albumin Globulin Ratio 1.1; Albumin Level 3.4 g/dL (3.4-5.0); Alkaline Phosphatase 100 U/L (46-116); Anion Gap 9.5; Aspartate Amino Transferase 12 U/L (15-37); BUN Creatinine Ratio 15.3; Bilirubin Total 0.5 mg/dL (0.2-1.0); Calcium 8.8 mg/dL (8.5-10.1); Carbon Dioxide 31.3 mmol/L (21.0-32.0); Chloride 106 mmol/L (98-107); Estimated GFR (African America >60 (>=60 mL/min/1.73m^2); Estimated GFR (Non-African Ame >60 (>=60 mL/min/1.73m^2); Glucose 187 mg/dL (74-106); Potassium 3.8 mmol/L (3.5-5.1); Sodium 143 mmol/L (136-145); Total Protein 6.4 g/dL (6.4-8.2)
[2024-05-11 01:59] LABS: INR 1.08; Partial Thromboplastin Time 28.3 sec (22.3-36.2); Prothrombin Time 11.4 sec (9.0-11.6)
[2024-05-11] MEDS: LIDOCAINE HCL 1% 100 MG/10 ML MDV INJ (02:06)
--- NOTE | 2024-05-11 02:27 | ED.GENADUL1 ---
HPI HPI - General Adult General Chief complaint: Wound/Laceration Stated complaint: FALL Time Seen by Provider: 05/11/24 00:53 Source: patient and other Source information: EMS Mode of arrival: ambulance Limitations: no limitations History of Present Illness HPI narrative: This 73-year-old male [facility] where he had a fall and was found to have a laceration to the left side of his head. Patient was in his wheelchair and was leaning forward when he fell and struck his head against the floor. There was no reported loss of consciousness. He reportedly also fell yesterday. Patient is a history of type 2 diabetes, dementia and Parkinson's disease. He is not on anticoagulant therapy. Patient has DNR CC CODE STATUS. Related Data Home Medications ?Medication ?Instructions ?Recorded ?Confirmed atorvastatin 40 mg tablet 40 mg PO DAILY 10/16/23 05/11/24 carbidopa ER 25 mg-levodopa 100 mg 1 tab PO QID 10/16/23 02/22/24 tablet,extended release cyanocobalamin (vitamin B-12) 100 100 mcg PO DAILY 10/16/23 02/22/24 mcg tablet donepezil 23 mg tablet 23 mg PO DAILY 10/16/23 05/11/24 fluoxetine 60 mg tablet 60 mg PO DAILY 10/16/23 05/11/24 insulin lispro 100 unit/mL 1 sliding scale dose subcut 10/16/23 05/11/24 subcutaneous cartridge (Humalog USEASDIRECTD U-100 Insulin) melatonin 3 mg capsule 3 mg PO QPM 10/16/23 05/11/24 pantoprazole 40 mg tablet,delayed 20 mg PO QPM 10/16/23 05/11/24 release pyridostigmine bromide 30 mg tablet 30 mg PO BID 10/16/23 02/22/24 clonazepam 0.5 mg tablet 0.5 mg PO Q12H 02/22/24 02/22/24 insulin glargine 100 unit/mL 20 unit subcut BEDTIME 02/22/24 05/11/24 subcutaneous solution (Lantus U-100 Insulin) memantine 5 mg tablet 5 mg PO DAILY 02/22/24 05/11/24 Previous Rx's ?Medication ?Instructions ?Recorded ibuprofen 400 mg tablet 400 mg PO TID PRN pain #14 tabs 02/22/24 diazepam 2 mg tablet 2 mg PO BID PRN muscle spasm #10 02/24/24 tabs Allergies Allergy/AdvReac Type Severity Reaction Status Date / Time Penicillins Allergy Severe Anaphylaxis Verified 05/11/24 00:51 gemtuzumab ozogamicin Allergy Unknown Unknown Verified 05/11/24 00:51 metformin Allergy Unknown Unknown Verified 05/11/24 00:51 Ezhcptk-TMY-WxV Reductase Allergy Unknown Unknown Verified 05/11/24 00:51 Inhibitor Opioid HPI Opioid Management Most Recent Opioid Data: Last Pain Scale 8 02/24/24 04:23 02/24/24 Review of Systems ROS Narrative All other systems are reviewed and are negative other than what is mentioned in the HPI. [facility] PFS Medical History Osteoarthritis ?M19.90 - Unspecified osteoarthritis, unspecified site (ICD-10) HTN (hypertension) ?I10 - Essential (primary) hypertension (ICD-10) Homicidal ideations ?R45.850 - Homicidal ideations (ICD-10) Diabetes ?E11.9 - Type 2 diabetes mellitus without complications (ICD-10) Parkinson disease ?G20.A1 - Parkinson's disease without dyskinesia, without mention of fluctuations (ICD-10) Hyperlipemia ?E78.5 - Hyperlipidemia, unspecified (ICD-10) Anxiety ?F41.9 - Anxiety disorder, unspecified (ICD-10) Alzheimer disease ?G30.9 - Alzheimer's disease, unspecified (ICD-10) ?F02.80 - Dementia in other diseases classified elsewhere, unspecified severity, without behavioral disturbance, psychotic disturbance, mood disturbance, and anxiety (ICD-10) Agitation ?R45.1 - Restlessness and agitation (ICD-10) Depression ?F32.A - Depression, unspecified (ICD-10) Dementia ?F03.90 - Unspecified dementia, unspecified severity, without behavioral disturbance, psychotic disturbance, mood disturbance, and anxiety (ICD-10) Social History Little interest or pleasure in doing things: not at all Feeling down, depressed, or hopeless: not at all Exam Narrative Exam Narrative: Patient is awake and alert on arrival. GCS is 15. Pupils are constricted bilaterally and minimally reactive to light. There is no facial asymmetry and he moves all extremities well. There is a 2 cm long laceration along the lateral left eyebrow there is deep extending into the underlying subcutaneous tissue. There is no underlying crepitus. C-spine is nontender. Lung sounds are clear to auscultation bilaterally. Heart has regular rate and rhythm. Abdomen is soft and benign. Bony survey of the extremities is negative. Constitutional Vital Signs, click to edit/add: Last Vital Signs Temp 98.2 F 05/11/24 00:46 Pulse 56 L 05/11/24 00:46 Resp 18 05/11/24 00:46 BP 133/70 05/11/24 00:46 Pulse Ox 100 05/11/24 01:42 O2 Del Method Room Air 05/11/24 01:42 Course Vital Signs Vital signs: Vital Signs Temperature 98.2 F 05/11/24 00:46 Pulse Rate 56 L 05/11/24 00:46 Respiratory Rate 18 05/11/24 00:46 Blood Pressure 133/70 05/11/24 00:46 Pulse Oximetry 100 05/11/24 00:46 Oxygen Delivery Method Room Air 05/11/24 00:46 Temperature 98.2 F 05/11/24 00:46 Pulse Rate 56 L 05/11/24 00:46 Respiratory Rate 18 05/11/24 00:46 Blood Pressure 133/70 05/11/24 00:46 Pulse Oximetry 100 05/11/24 01:42 Oxygen Delivery Method Room Air 05/11/24 01:42 Medical Decision Making MDM Narrative Medical decision making narrative: Patient's facial laceration was cleaned and locally infiltrated with lidocaine 1% plain. Was explored and there was no foreign body in the wound cavity. Closure was carried out with simple interrupted sutures using 4-0 Prolene with good wound edge approximation. CT scan of the brain shows a right sided frontoparietal subdural hematoma which is 7 mm at its widest and causes some mass effect but no midline shift. No skull fracture is reported. CT scan of the cervical spine was also obtained at this time and no acute fracture is reported. Baseline labs are reviewed. The patient will be transferred to [facility] where he has been accepted by the trauma surgeon Dr. Crisostomo. Lab Data Labs: Lab Results 05/11/24 Range/Units 01:25 WBC 10.6 (4.0-11.0) 10^3/uL RBC 4.94 (4.70-6.10) 10^6/uL Hgb 15.2 (14.0-18.0) g/dL Hct 45.3 (42.0-54.0) % MCV 91.7 (80.0-94.0) fL MCH 30.8 (25.9-34.0) pg MCHC 33.6 (29.9-35.2) g/dL RDW 12.2 (11.0-15.0) % Plt Count 340 (150-450) 10^3/uL MPV 8.8 L (9.5-13.5) fL Neut % (Auto) 76.7 H (43.0-75.0) % Lymph % (Auto) 12.5 L (20.5-60.0) % Hand % (Auto) 8.2 (1.7-12.0) % Eos % (Auto) 1.7 (0.9-7.0) % Baso % (Auto) 0.5 (0.2-2.0) % Neut # (Auto) 8.1 H (1.4-6.5) 10^3/uL Lymph # (Auto) 1.3 (1.2-3.8) 10^3/uL Hand # (Auto) 0.9 H (0.3-0.8) 10^3/uL Eos # (Auto) 0.2 (0.0-0.7) 10^3/uL Baso # (Auto) 0.1 (0.0-0.1) 10^3/uL Abs Immat Gran (auto) 0.04 H (0.00-0.03) 10^3/uL Imm/Tot Granulo (auto) 0.4 (0.0-0.5) % PT 11.4 (9.0-11.6) sec INR 1.08 APTT 28.3 (22.3-36.2) sec Sodium 143 (136-145) mmol/L Potassium 3.8 (3.5-5.1) mmol/L Chloride 106 (98-107) mmol/L Carbon Dioxide 31.3 (21.0-32.0) mmol/L Anion Gap 9.5 BUN 15.0 (7.0-18.0) mg/dL Creatinine 0.98 (0.70-1.30) mg/dL Est GFR ( Amer) >60 (>=60 mL/min/1.73m^2) Est GFR (Non-Af Amer) >60 (>=60 mL/min/1.73m^2) BUN/Creatinine Ratio 15.3 Glucose 187 H (74-106) mg/dL Calcium 8.8 (8.5-10.1) mg/dL Total Bilirubin 0.5 (0.2-1.0) mg/dL AST 12 L (15-37) U/L ALT 18 (16-63) U/L Alkaline Phosphatase 100 (46-116) U/L Total Protein 6.4 (6.4-8.2) g/dL Albumin 3.4 (3.4-5.0) g/dL Globulin 3.0 g/dL Albumin/Globulin Ratio 1.1 Discharge Plan Discharge Chief Complaint: Wound/Laceration Clinical Impression: SDH (subdural hematoma) Patient Disposition: [facility] Time of Disposition Decision: 02:57 Discharge Location: [facility] Condition: Good Mode of Transportation: EMS
[2024-05-11 04:27] VITALS: BP 152/78; PULSE 54; O2SAT 99
== END 2024-05-11 04:30 | disposition short-term general hospital (02) ==
PROVIDERS: Emergency Provider Emergency Medicine; PCP Family Medicine
DX: S06.5X0A Traumatic subdural hemorrhage without loss of consciousness, initial encounter (principal); S01.112A Laceration without foreign body of left eyelid and periocular area, initial encounter; W05.0XXA Fall from non-moving wheelchair, initial encounter; E11.9 Type 2 diabetes mellitus without complications; G20.A1 Parkinson's disease without dyskinesia, without mention of fluctuations; F02.80 Dementia in other diseases classified elsewhere, unspecified severity, without behavioral disturbance, psychotic disturbance, mood disturbance, and anxiety; Z91.81 History of falling; Z66 Do not resuscitate; Z79.4 Long term (current) use of insulin
CPT/HCPCS: 12011; 36415; 70450; 72125; 80053; 85025; 85610; 85730; 99285

== ENCOUNTER 2024-08-17 10:04 | Outpatient (OUT) | payer MEDICARE, SELFPAY ==
--- OUTSIDE RECORDS SUMMARY | 2024-08-06 23:59 | XMS_ITS | Continuity of Care Document ---
Author Organization [facility] Address Unknown Care Team Providers Care Peanut Sorter Name Role Phone ARSENIO RODRIGUEZ Primary Care Physician [phone] Encounter FT_FIN [id number] Date(s): 08/06/24 - 08/06/[address] [address]- Discharge Disposition: Home (Routine DC) Attending Physician: Tariq CHAPPELL MD Admitting Physician: Tariq CHAPPELL MD Encounter Type: Lab Drop off Allergies, Adverse Reactions, Alerts Substance Criticality Severity Reaction Reaction Severity Status penicillin Unknown Active Assessment and Plan Diagnostic Tests Pending * Urine Culture 08/06/24 Medications acetaminophen Refills(s) 0 Start Date: 08/06/24 Status: Ordered Repeat number: 1 atorvastatin 40 mg Tab Refills(s) 0 Start Date: 08/06/24 Status: Ordered Repeat number: 1 carbidopa-levodopa 25 mg-250 mg Tab 1 tab(s), Refill(s) 0 Start Date: 08/06/24 Status: Ordered Repeat number: 1 donepezil 10 mg Tab 10 mg = 1 tab(s), Refills(s) 0 Start Date: 08/06/24 Status: Ordered Repeat number: 1 FLUoxetine 20 mg Cap 20 mg = 1 cap(s), Refills(s) 0 Start Date: 08/06/24 Status: Ordered Repeat number: 1 FLUoxetine 40 mg Cap 40 mg = 1 cap(s), Refills(s) 0 Start Date: 08/06/24 Status: Ordered Repeat number: 1 Insulin Lispro KwikPen 100 units/mL injectable solution 1 unit(s), Refills(s) 0 Start Date: 08/06/24 Status: Ordered Repeat number: 1 memantine 5 mg Tab 5 mg = 1 tab(s), Refills(s) 0 Start Date: 08/06/24 Status: Ordered Repeat number: 1 midodrine 10 mg oral tablet Refills(s) 0 Start Date: 08/06/24 Status: Ordered Repeat number: 1 omeprazole 20 mg Cap-DR mg cap(s), Oral, Daily, Refills(s) 0 Start Date: 08/06/24 Status: Ordered Repeat number: 1 saxagliptin 5 mg oral tablet 5 mg = 1 tab(s), Refills(s) 0 Start Date: 08/06/24 Status: Ordered Repeat number: 1 tolterodine 2 mg Tab 2 mg = 1 tab(s), Refills(s) 0 Start Date: 08/06/24 Status: Ordered Repeat number: 1 Vitamin B12 Refills(s) 0 Start Date: 08/06/24 Status: Ordered Repeat number: 1 Problem List Condition Confirmation Course Effective Dates Status Health St atus Informant Atrophic testicle Confirmed Active Dementia Confirmed Active Hydrocele Confirmed Active Epididymitis Confirmed Active Procedures Procedure Date Related Diagnosis Body Site Status Arthroplasty of knee bilateral Completed History of repair of inguinal hernia Completed Tracheotomy Completed Social History Social History Type Response Smoking Status Never (less than 100 in lifetime);Former smoker, quit more than 30 days ago;Never; Type: Cigarettes; Smoking Cessation Yes entered on: 08/06/24 Sex Male Sex Representation Male (finding) Patient Care team information Care Team Personnel Name: ARSENIO RODRIGUEZ DO Position: FT Physician Member Role: Primary Care Physician Address: [address] [place] [address] Telecom: Care Team Related Persons Name: ANNA MARIE SAMUELS Name: ANNA MARIE SAMUELS Insurance Providers Guarantor name: Health Plan Information #: 1 Payer: NA Payer Identifier: [id number] Member Number: [id number] Group Number: [id number] Subscriber Identifier: [id number] Relationship to Subscriber: Self Coverage Type: MEDICARE Coverage Verification Date: NA Telecom: NA Address:
--- OUTSIDE RECORDS SUMMARY | 2024-08-06 23:59 | XMS_ITS | Continuity of Care Document ---
Author Organization [facility] Address [address] [place] [address] [place] [address] Care Team Providers Care Leasing Consultant Name Role Phone ARSENIO RODRIGUEZ Primary Care Physician Encounter FT_AMBFIN [id number] Date(s): 08/06/24 - 08/06/24 [facility] [address] [place] [address] [place] Encounter Diagnosis Hydrocele(Discharge Diagnosis) - 08/06/24 Epididymitis(Discharge Diagnosis) - 08/06/24 Atrophic testicle(Discharge Diagnosis) - 08/06/24 Discharge Disposition: Home (Routine DC) Attending Physician: Tariq CHAPPELL MD Encounter Type: Clinic Allergies, Adverse Reactions, Alerts Substance Criticality Severity Reaction Reaction Severity Status penicillin Unknown Active Medications acetaminophen Refills(s) 0 Start Date: 08/06/24 [...] 08/06/24 Sex Male Sex Representation Male (finding) Hospital Discharge Instructions Patient Education 08/06/2024 13:09:54 Epididymitis Epididymitis Epididymitis is inflammation or swelling of the epididymis. This is caused by an infection. The epididymis is a cord-like structure that is located along the top and back part of the testicle. It collects and stores sperm from the testicle. This condition can also cause pain and swelling of the testicle and scrotum. Symptoms usually startsuddenly (acute epididymitis). Sometimes epididymitis starts gradually and lasts for a while (chronic epididymitis). Chronic epididymitis may be harder to treat. What are the causes? In men ages 20???40, this condition is usually caused by a bacterial infection or a sexually transmitted infection (STI), such as gonorrhea or chlamydia. In men 40 and older, this condition is usually caused by bacteria from a urinary blockage or from abnormalities in the urinary system. These can result from: ??? Having a tube placed into the bladder (urinary catheter). ??? Having an enlarged or inflamed prostate gland. ??? Having recently had urinary tract surgery. ??? Having a problem with a backward flow of urine (retrograde). In men who have a condition that weakens the body's defense system (immune system), such as human immunodeficiency virus (HIV), this condition can be caused by: ??? Other bacteria, including tuberculosis and syphilis. ??? Viruses. ??? Fungi. Sometimes this condition occurs without infection. This may happen because of trauma or repetitive activities such as sports. What increases the risk? You are more likely to develop this condition if you have: ??? Unprotected sex with more than one partner. ??? Anal sex. ??? Had recent surgery. ??? A urinary catheter. ??? Urinary problems. ??? A suppressed immune system. What are the signs or symptoms? This condition usually begins suddenly with chills, fever, and pain behind the scrotum and in the testicle. Other symptoms include: ??? Swelling of the scrotum, testicle, or both. ??? Pain when ejaculating or urinating. ??? Pain in the back or abdomen. ??? Nausea. ??? Itching and discharge from the penis. ??? A frequent need to pass urine. ??? Redness, increased warmth, and tenderness of the scrotum. How is this diagnosed? Your health care provider can diagnose this condition based on your symptoms and medical history. Your health care provider will also do a physical exam to check your scrotum and testicle for swelling, pain, and redness. You may also have other tests, including: ??? Testing of discharge from the penis. ??? Testing your urine for infections, such as STIs. ??? Ultrasound to check for blood flow and inflammation. Your health care provider may test you for other STIs, including HIV. How is this treated? Treatment for this condition depends on the cause. If your condition is caused by a bacterial infection, oral antibiotic medicine may be prescribed. If the bacterial infection has spread to your blood, you may need to receive IV antibiotics. For both bacterial and nonbacterial epididymitis, you may be treated with: ??? Rest. ??? Elevation of the scrotum. ??? Pain medicines. ??? Anti-inflammatory medicines. Surgery may be needed if: ??? You have pus buildup in the scrotum (abscess). ??? You have epididymitis that has not responded to other treatments. Follow these instructions at home: Medicines ??? Take [id number] and prescription medicines only as told by your health care provider. ??? If you were prescribed an antibiotic medicine, take it as told by your health care provider. Donot stop taking the antibiotic even if your condition improves. Sexual activity ??? If your epididymitis was caused by an STI, avoid sexual activity until your treatment is complete. ??? Inform your sexual partner or partners if you test positive for an STI. They may need to be treated. Do not engage in sexual activity with your partner or partners until their treatment is completed. Managing pain and swelling ??? If directed, raise (elevate) your scrotum and apply ice. To do this: ??? Put ice in a plastic bag. ??? Place a small towel or pillow between your legs. ??? Rest your scrotum on the pillow or towel. ??? Place another towel between your skin and the plastic bag. ??? Leave the ice on for 20 minutes, 2???3 times a day. ??? Remove the ice if your skin turns bright red. This is very important. If you cannot feel pain, heat, or cold, you have a greater risk of damage to the area. ??? Keep your scrotum elevated and supported while resting. Ask your health care provider if you should wear a scrotal support, such as a jockstrap. Wear it as told by your health care provider. ??? Try taking a sitz bath to help with discomfort. This is a warm water bath that is taken while you are sitting down. The water should come up to your hips and should cover your buttocks. Do this 3???4 times per day or as told by your health care provider. General instructions ??? Drink enough fluid to keep your urine pale yellow. ??? Return to your normal activities as told by your health care provider. Ask your health care provider what activities are safe for you. ??? Keep all follow-up visits. This is important. Contact a health care provider if: ??? You have a fever. ??? Your pain medicine is not helping. ??? Your pain is getting worse. ??? Your symptoms do not improve within 3 days. Summary ??? Epididymitis is inflammation or swelling of the epididymis. This is caused by an infection. This condition can also cause pain and swelling of the testicle and scrotum. ??? Treatment for this condition depends on the cause. If your condition is caused by a bacterial infection, oral antibiotic medicine may be prescribed. ??? Inform your sexual partner or partners if you test positive for an STI. They may need to be treated. Do not engage in sexual activity with your partner or partners until their treatment is completed. ??? Contact a health care provider if your symptoms do not improve within 3 days. This information is not intended to replace advice given to you by your health care provider. Make sure you discuss any questions you have with your health care provider. Document Revised: 09/23/2021 Document Reviewed: 09/23/2021 [employer] Patient Education ?? 2023 [employer]. 08/06/2024 12:41:09 Hydrocele, Adult Hydrocele, Adult A hydrocele is a collection of fluid in the loose pouch of skin that holds the testicles (scrotum).It can occur in one or both testicles. This may happen because: ??? The amount of fluid produced in the scrotum is not absorbed by the rest of the body. ??? Fluid from the abdomen fills the scrotum. Normally, the testicles develop in the abdomen and then drop into the scrotum before . The tube that the testicles travel through usually closes after the testicles drop. If the tube does not close, fluid from the abdomen can fill the scrotum. Thisis not very common in adults. What are the causes? A hydrocele may be caused by: ??? An injury to the scrotum. ??? An infection. ??? Decreased blood flow to the scrotum. ??? Twisting of a testicle (testicular torsion). ??? A defect. ??? A tumor or cancer of the testicle. Sometimes, the cause is not known. What are the signs or symptoms? A hydrocele feels like a water-filled balloon. It may also feel heavy. Other symptoms include: ??? Swelling of the scrotum. The swelling may decrease when you lie down. You may also notice more swelling at night than in the morning. This is called a communicating hydrocele, in which the fluid in the scrotum goes back into the abdominal cavity when the position of the scrotum changes. ??? Swelling of the groin. ??? Mild discomfort in the scrotum. ??? Pain. This can develop if the hydrocele was caused by infection or twisting. The larger the hydrocele, the more likely you are to have pain. Swelling may also cause pain. How is this diagnosed? This condition may be diagnosed based on a physical exam and your medical history. You may also have tests, including: ??? Imaging tests, such as an ultrasound. ??? A transillumination test. This test takes place in a dark room where a light is placed on the skin of the scrotum. Clear liquid will not impede the light and the scrotum will be illuminated. Thishelps a health care provider distinguish a hydrocele from a tumor. ??? Blood or urine tests. How is this treated? Most hydroceles go away on their own. If you have no discomfort or pain, your health care provider may suggest close monitoring of your condition until the condition goes away or symptoms develop. This is called watch and wait or watchful waiting. If treatment is needed, it may include: ??? Treating an underlying condition. This may include taking an antibiotic medicine to treat an infection. ??? Having surgery to stop fluid from collecting in the scrotum. ??? Having surgery to drain the fluid. Surgery may include: ??? Hydrocelectomy. For this procedure, an incision is made in the scrotum to remove the fluid. ??? Needle aspiration. A needle is used to drain fluid. However, the fluid buildup will come back quickly and may lead to an infection of the scrotum. This is rarely done. Follow these instructions at home: Medicines ??? Take fqjr-tqm-bmacmvw and prescription medicines only as told by your health care provider. ??? If you were prescribed an antibiotic medicine, take it as told by your health care provider. Donot stop taking the antibiotic even if you start to feel better. General instructions ??? Watch the hydrocele for any changes. ??? Keep all follow-up visits. This is important. Contact a health care provider if: ??? You notice any changes in the hydrocele. ??? The swelling in your scrotum or groin gets worse. ??? The hydrocele becomes red, firm, painful, or tender to the touch. ??? You have a fever. Get help right away if you: ??? Develop a lot of pain or your pain becomes worse. ??? Have chills. ??? Have a high fever. Summary ??? A hydrocele is a collection of fluid in the loose pouch of skin that holds the testicles (scrotum). ??? A hydrocele can cause swelling, discomfort, and pain. ??? In adults, the cause of a hydrocele may not be known. However, it is sometimes caused by an infection or the twisting of a testicle. ??? Hydroceles often go away on their own. If a hydrocele causes pain, treating the underlying cause may be needed to ease the pain. This information is not intended to replace advice given to you by your health care provider. Make sure you discuss any questions you have with your health care provider. Document Revised: 10/01/2021 Document Reviewed: 10/01/2021 [employer] Patient Education ?? 2023 [employer]. Follow Up Care 07/19/2024 12:58:50 With:TA REYES, Tariq Siddiqi, URL Address: [facility] [address], [place] [address]- When: Unknown Patient Care team information Care Team Personnel Name: ARSENIO RODRIGUEZ DO Position: FT Physician Member Role: Primary Care Physician Address: [address] [place] [address] [employer]: Care Team Related Persons Name: ANNA MARIE SAMUELS Name: ANNA MARIE SAMUELS Insurance Providers Guarantor name: Health Plan Information #: 1 Payer: NA Payer Identifier: [id number] Member Number: [id number] Group Number: [id number] Subscriber Identifier: [id number] Relationship to Subscriber: Self Coverage Type: MEDICARE Coverage Verification Date: 24 Telecom: TC Address: NA
--- OUTSIDE RECORDS SUMMARY | 2024-08-17 10:06 | XMS_ITS | Encounter Summary ---
Author Organization [facility] [id number] [address] [place] [address] Care Team Providers Care Dairy Technologist Name Role Phone Javad Alegre DO Primary Care Provider [phone] Encounter Details Date Type Department Care Team (Late st Contact Info) Description 02/23/2024 Orders Only [facility] - [facility] Medicine [address] [place] [id number] Javad Alegre DO [address], [place] [address] Social History Tobacco Use Types Packs/Day Years Used Date Smoking Tobacco: Former Cigarettes 1.5 47 0 05/03/1968 - 05/04/2015 Smokeless Tobacco: Never Alcohol Use Standard Drinks/Week Comments No 0 (1 standard drink = 0.6 oz pur e alcohol) socially yearly [facility] Utilities Answer Date Recorded In the past 12 months has [employer], gas, oil, or water [employer] threatened to shut off services in your home? No 04/16/2023 PRAPARE - Transportation Answer Date Re corded In the past 12 months, has l ack of transportation kept you from medical appointments or from getting medications? No 03/31 In the past 12 months, has l ack of transportation kept you from meetings, work, or from getting things needed for daily living? No 04/16/2023 Housing Instability Answer Date Recorde d Are you worried or concerned that in the next two months you may not have stable housing that you own, rent or stay in as a part of a household? No 04/16/2023 Childcare Answer Date Recorded Childcare Unknown 08/09/2018 Employment Answer Date Recorded Employment Unknown 08/09/2018 Hunger Screening Answer Date Recorded Within the past 12 months we worried whether our food would run out before we got money to buy more. Never True 04/16/2023 Within the past 12 months th e food we bought just didn't last and we didn't have money to get more. Never True 04/16/2023 Purpose - Life Answer Date Recorded Purpose and direction in life Unknown Sex and Gender Information Value Date Recorded Sex Assigned at Not on file Legal Sex Male 10:58 PM EDT Gender Identity Not on file Sexual Orientation Not on file documented as of this encounter Plan of Treatment Not on file documented as of this encounter Visit Diagnoses Not on filedocumented in this encounter Care Teams Dairy Technologist Relationship Specialty Start Date End Date Javad Alegre DO [address], [place] [address] PCP - General Family Medicine 05/11/24 documented as of this encounter
--- OUTSIDE RECORDS SUMMARY | 2024-08-17 10:06 | XMS_ITS | Encounter Summary ---
Author Organization [facility] Sys tem Address [facility] [id number] [address] [facility] [place] [address] Care Team Providers Care Chocolate Refining Roller Name Role Phone Javad Alegre DO Primary Care Provider [phone] Encounter Details Date Type Department Care Team (Late st Contact Info) Description 02/24/2024 Orders Only [facility] - Family Medicine [address] [id number] Javad Alegre DO [address], [place] [address] Social History Tobacco Use Types Packs/Day Years Used Date Smoking Tobacco: Former Cigarettes 1.5 47 0 05/03/1968 - 05/04/2015 Smokeless Tobacco: Never Alcohol Use Standard Drinks/Week Comments No 0 (1 standard drink = 0.6 oz pur e alcohol) socially yearly [facility] Utilities Answer Date Recorded In the past 12 months has [employer], gas, oil, or water [employer] threatened to shut off services in your [...] on filedocumented in this encounter Care Teams Chocolate Refining Roller Relationship Specialty Start Date End Date Javad Alegre DO [address], [place] [address] PCP - General Family Medicine 05/11/24 documented as of this encounter
--- OUTSIDE RECORDS SUMMARY | 2024-08-17 10:06 | XMS_ITS | Encounter Summary ---
Author Organization [facility] tem Address [facility] [id number] [address] [place] [place] [address] Care Team Providers Care Cotton Farmworker Name Role Phone PaulieJavad romero Primary Care Provider Encounter Details Date Type Department Care Team (Late st Contact Info) Description 12/12/2023 Orders Only [facility] - [facility] [address] [facility] [place] [address] Ref Prov, [place] [address] Social History Tobacco Use Types Packs/Day Years Used Date Smoking Tobacco: Former Cigarettes 1.5 47 0 05/03/1968 - 05/04/2015 Smokeless Tobacco: Never Alcohol Use Standard Drinks/Week Comments No 0 (1 standard drink = 0.6 oz pur e alcohol) socially yearly [facility] Utilities Answer Date Recorded In the past 12 months has [employer], gas, oil, or water company threatened to shut off [...] on file documented as of this encounter Procedures Procedure Name Priority Date/Time Associated Diagnosis Comments CT CERVICAL SPINE WO CONT Routine 12/11/2023 2:[address] FACIAL BONES WO CONT Routine 12/11/2023 2:02 PM EDT documented in this encounter Results * CT cervical spine without contrast (12/11/2023 2:04 PM EDT) Anatomical Region Laterality Modality MSK, Neuro, Spine, C-spine, Spine Covera N/A Computed Tomography us Not In System Ref Prov IMG CT ORDERABLES Final R esult * CT facial bones without contrast (12/11/2023 2:02 PM EDT) Anatomical Region Laterality Modality Neuro, Face, Neuro Covera N/A Comput ed Tomography us Not In System Ref Prov IMG CT ORDERABLES Final R esult documented in this encounter Visit Diagnoses Not on filedocumented in this encounter Care Teams Cotton Farmworker Relationship Specialty Start Date End Date Javad Alegre DO [address], [place] [address] PCP - General Family Medicine 05/11/24 documented as of this encounter
--- OUTSIDE RECORDS SUMMARY | 2024-08-17 10:07 | XMS_ITS | Encounter Summary ---
Author Organization [facility] Sys [facility] Address [facility] [id number] [address] [place] [address] Care Team Providers Care Editorial Writer Name Role Phone Javad Alegre Primary Care Provider [phone] Encounter Details Date Type Department Care Team (Late st Contact Info) Description 05/11/2024 Orders Only [facility] [employer] [facility] [place] [address] Transcribe, Orders Support User Pain (Primary Dx) Social History Tobacco Use Types Packs/Day Years Used Date Smoking Tobacco: Former Cigarettes 1.5 47 0 05/03/1968 - 05/04/2015 Smokeless Tobacco: Never Alcohol Use Standard Drinks/Week Comments No 0 (1 standard drink = 0.6 oz pur e alcohol) socially yearly per patient [facility] Utilities Answer Date Recorded In the past 12 months has [employer], gas, oil, or water company threatened to shut off services in your home? No 05/11/2024 AUDIT-C Answer Date Recorded Q1: How often do you have a drink containing alc ohol? Monthly or less 05/11/2024 Q2: How many drinks containi ng alcohol do you have on a typical day when you are drinking? 1 or 2 05/11/2024 Q3: How often do you have si x or more drinks on one occasion? Never 05/11/2024 PHQ-2 Answer Date Recorded Total Score 0 05/11/2024 PRAPARE - Transportation Answer Date Re corded In the past 12 months, has l ack of transportation kept you from medical appointments or from getting medications? No 04/28 In the past 12 months, has l ack of transportation kept you from meetings, work, or from getting things needed for daily living? No 05/11/2024 Housing Instability Answer Date Recorde d Are you worried or concerned that in the next two months you may not have stable housing that you own, rent or stay in as a part of a household? No 05/11/2024 Childcare Answer Date Recorded Childcare Unknown 08/09/2018 Employment Answer Date Recorded Employment Unknown 08/09/2018 Hunger Screening Answer Date Recorded Within the past 12 months we worried whether our food would run out before we got money to buy more. Never True 05/11/2024 Within the past 12 months th e food we bought just didn't last and we didn't have money to get more. Never True 05/11/2024 Purpose - Life Answer Date Recorded Purpose and direction in life Unknown Sex and Gender Information Value Date Recorded Sex Assigned at Not on file Legal Sex Male 10:58 PM EDT Gender Identity Not on file Sexual Orientation Not on file documented as of this encounter Functional Status * Audit-C Score Answer Date of Assessment Author 1 05/11/2024 9:20 AM EDT Breezy Landers RN * Question Answer Date of Assessment Author Q1: How often do you have a drink containing alcohol? Monthly or less 05/11/2024 9:20 AM EDT Breezy Landers RN Q2: How many drinks containing alcohol do you have on a typical day when you are drinking? 1 or 2 05/11/2024 9:20 AM EDT Natan Landers RN Q3: How often do you have six or more drinks on one occasion? Never 05/11/2024 9:20 AM EDT Breezy Landers RN * Question Answer Date of Assessment Author Functional Status Totally dependent 05/11/2024 9:27 AM EDT Breezy Landers RN documented as of this encounter Plan of Treatment Not on file documented as of this encounter Results * CT cervical spine without contrast (05/11/2024 1:50 AM EDT) us Scanning Provider External IMG CT ORDERABLES Fin al Result * CT brain without contrast (05/11/2024 1:15 AM EDT) us Scanning Provider External IMG CT ORDERABLES Fin al Result documented in this encounter Visit Diagnoses Diagnosis Pain- Primary Generalized pain documented in this encounter Additional Health Concerns Assessment Noted Time PHQ-9 Depression Total Score: 0 05/12/19 9:26 AM EDT documented as of this encounter Care Teams Editorial Writer Relationship Specialty Start Date End Date Javad Alegre DO [address] [facility], [place] [address] PCP - General Family Medicine 05/11/24 documented as of this encounter
--- OUTSIDE RECORDS SUMMARY | 2024-08-17 10:07 | XMS_ITS | Clinical Summary ---
Author Organization [facility] Address [facility] [id number] [address] [facility] [place] [address] Care Team Providers Care Unit Receptionist Name Role Phone CodeyJavad Latoya GAN Primary Care Provider [phone] Allergies Active Allergy Reactions Criticality Noted Date Comments Gemtuzumab Ozogamicin 08/04/2023 Metformin Diarrhea 05/11/2024 Penicillins Anaphylaxis High 05/03/2016 Shock and , CPR resus saved life. Simvastatin Other (See Comments) Low 10/08/2016 Leg cramps Vibegron Rash Low 05/11/2024 Medications atorvastatin (LIPITOR) 40 mg tablet Take 1 tablet (40 mg total) by mouth See Admin Instructions. THREE TIMES A WEEK (m, w, f) 6 Active FLUoxetine (PROzac) 20 mg capsuleIndicati ons:Anxiety Take 3 capsules (60 mg total) by mouth every morning before breakfast Indications: Anxiety. 6 Active carbidopa-levod opa (SINEMET) 25-250 mg per tablet Take 1 tablet by mouth in the morning and 1 tablet at noon and 1 tablet in the evening and 1 tablet before bedtime. Active donepeziL (ARICEPT) 10 mg tablet Take 2 tablets (20 mg total) by mouth daily. 4 Active insulin lispro (HumaLOG U-100 Insulin) 100 unit/mL injection Inject under the skin 4 (four) times a day before meals and nightly. 201-250= 2 units 251-300= 4 units 301-350= 6 units 351-400= 8 units Notify MD less than 60 or greater than 400 Active melatonin (CIRCADIN) tablet Take 1 tablet (3 mg total) by mouth daily. 4 Active memantine (NAMENDA) 5 mg tablet Take 1 tablet (5 mg total) by mouth daily. 4 Active insulin detemir U-100 (LEVEMIR FLEXPEN) 100 unit/mL (3 mL) insulin pen Inject 20 Units under the skin nightly. 5 Active midodrine (PROAMATINE) 10 mg tablet Take 1 tablet (10 mg total) by mouth 3 (three) times a day. 5 Active pantoprazole (PROTONIX) 20 mg EC tablet Take 1 tablet (20 mg total) by mouth every morning before breakfast. 5 Active cyanocobalamin (vitamin B-12) 100 MCG tablet Take 1 tablet (100 mcg total) by mouth in the morning. Active sAXagliptin (ONGLYZA) 5 mg tablet Take 1 tablet (5 mg total) by mouth daily. 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 04/17/2023 Drug side effects, initial encounter 04/17/2023 Melena 04/16/2023 Cervical spondylosis 10/26/2022 Impaired cognition 10/26/2022 Sleep apnea 09/13/2022 Type 2 diabetes mellitus with diabetic neuropath y 01/19/2022 Neuropathy 01/14/2022 Impaired gait 01/14/2022 B12 deficiency 10/30/2021 Overview (08/05/2023): Low B12 2021 Abdominal aortic aneurysm (AAA) 30 to 34 mm in d iameter 12/02/2020 Overview (08/05/2023): On U/S 2020, recheck in 2023 Recurrent major depressive disorder, in partial remission 11/29/2019 Keratoacanthoma 11/29/2019 Depression 10/22/2016 Osteoarthritis of right knee 10/21/2016 Left knee DJD 05/14/2016 Dyslipidemia 05/14/2016 Type 2 diabetes mellitus wit h complication, with long-term current use of insulin 05/14/2016 Anxiety 05/14/2016 Hyperlipidemia 12/17/2014 Resolved Problems Problem Noted Date Diagnosed Date Resolved Date Urinary tract infection with hematuria, site unspecified 04/16/2023 08/05/2023 Diabetes mellitus type 2, controlled 10/22/2016 08/05/2023 Overview (10/22/2016): on oral and insulin, checks sugars twice daily Encounters Date Type Department Care Team Description 07/13/2024 Continuing Care [facility] - Family Medicine [address] [place] [address] Javad Alegre DO Lewy body dementia with psychotic disturbance, unspecified dementia severity ([facility]) (Primary Dx); Recurrent falls; Skin tear of right elbow without complication, subsequent encounter; Impaired gait 06/08/2024 Continuing Care [facility] - Family Medicine [address] [place] [address] Tara Lim, SUPERINTENDENT METERS-TALENT ASSOCIATE Fall, initial encounter (Primary Dx); 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 (CMS-HCC) 05/25/2024 Continuing Care [facility] - Family [facility] [address] [place] [address] Javad Alegre, 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 ([facility]) (Primary Dx); Recurrent falls; Impaired gait; Neurogenic orthostatic hypotension (CMS-HCC) from Last 3 Months Immunizations Immunization Administration Dates Next Due COVID-19, mRNA, LNP-S, PF, 100mcg/0.5mL Dose ,04/24/2020 COVID-19, mRNA, LNP-S, PF, 30mcg/0.3mL Dose 11/29 Tdap 02/22/2024 Tuberculin Skin Test; Unspecified Formulation ,11/29/2023 Zoster Vaccine Recombinant 07/23/2021,05/12/2021 Family History Medical History Relation Name Comments Anesthesia problems Neg Hx Social History Tobacco Use Types Packs/Day Years Used Date Smoking Tobacco: Former Cigarettes 1.5 47 0 05/03/1968 - 05/04/2015 Smokeless Tobacco: Never Tobacco Cessation:Counseling Given: Not Answered Alcohol Use Standard Drinks/Week Comments No 0 (1 standard drink = 0.6 oz pur e alcohol) socially yearly per patient [facility] Utilities Answer Date Recorded In the past 12 months has th e [employer], gas, oil, or water company threatened to [...] on file Sexual Orientation Not on file Last Filed Vital Signs Vital Sign Reading Time Taken Comments Blood Pressure 134/73 07/13/2024 7:30 PM EDT Pulse 59 07/13/2024 7:30 PM EDT Temperature 36.5 C (97.7 F) 07/13/2024 7:30 PM EDT Respiratory Rate 20 07/13/2024 7:30 PM EDT Oxygen Saturation 96% 07/13/2024 7:30 PM EDT Inhaled Oxygen Concentration - - Weight 76.7 kg (169 lb 3.2 oz) 07/13/2024 7:30 P M EDT Height 172.7 cm (5' 8 ) 05/11/2024 10:00 AM EDT Body Mass Index 25.73 05/11/2024 10:00 AM EDT Plan of Treatment Health Maintenance Due Date Last Done Comments Diabetic Ophthalmology Exam 1950 Fall Risk Screening 2014 COVID-19 Vaccine (2023-2 5 season) 2023 12/24/2020, 12/24/2020, 05/22/2020, Additional history exists Influenza Vaccine 10/29/2024 Depression Screening 05/11/2025 05/11/2024 Tobacco Screening 05/11/2025 05/11/2024 DTaP,Tdap and Td Vaccines (2 - Td or Tdap) 02/21/2034 02/22/2024 Abdominal Aortic Aneurysm (A AA) Screen Completed 12/02/2020, 11/20/2020 Zoster (Shingles) Vaccine Completed 07/23/2021, Medical Devices Implanted Type Area Intern Product Marketing Manager Device Identifier Shelf Expiration Date Model / Serial / Lot Brng Tib [id number] 0d Kn Ant - [id number] Implanted:Qty : 1 on 05/14/2016 by Derrek Arshad MD at [facility] Bearing Left: Knee [employer] 08/06/2020 [id number] / / [id number] Brng Tib [id number] 3d Std - [id number] Implanted:Qty : 1 on 10/22/2016 by Eduardo Hennessy MD at [facility] Bearing Right: Knee [employer] 12/23/2020 [id number] / [id number] / [id number] Cement Bn Pal[place] Radpq 40g Rpl [id number] - [id number] Implanted:Qty : 2 on 05/14/2016 by Derrek Arshad MD at [facility] Cement Left: Knee [employer] 10/28/2020 40- / / [id number] Cement Bn Palacos Radpq 40g Rpl [id number] - [id number] Implanted:Qty : 2 on 10/22/2016 by Eduardo Hennessy MD at [facility] Cement Right: Knee [employer] 01/27/2021 40- / [id number] / [id number] Cmpt Fem Kn Lt 70mm Cr Cmnt - [id number] Implanted:Qty : 1 on 05/14/2016 by Derrek Arshad MD at [facility] Orthopedic Implant Left: Knee [employer]omet 04/30/2026 [id number] / / [id number] Ty Tib As Mx 79mm Intlk Cocr - [id number] Implanted:Qty : 1 on 05/14/2016 by Derrek Arshad MD at [facility] Orthopedic Implant Left: Knee [employer]omet 02/18/2026 [id number] / / [id number] Cmpt Ptlr Thn 34mm 3 Pg Kn Ser - [id number] Implanted:Qty : 1 on 05/14/2016 by Derrek Arshad MD at [facility] Orthopedic Implant Left: Knee [employer]omet 05/07/2021 [id number] / / [id number] Cmpt Ptlr Thn 8.6mm 37mm 3 Pg - [id number] Implanted:Qty : 1 on 10/22/2016 by Eduardo Hennessy MD at [facility] Orthopedic Implant Right: Knee [employer] 05/19/2021 [id number] / [id number] / [id number] Cmpt Fem Kn Rt 70mm Cr Cmnt - [id number] Implanted:Qty : 1 on 10/22/2016 by Eduardo Hennessy MD at [facility] Orthopedic Implant Right: Knee [employer]omet 07/09/2026 [id number] / [id number] / [id number] Ty Tib 79mm Cocr Kn I Beam - [id number] Implanted:Qty : 1 on 10/22/2016 by Eduardo Hennessy MD at [facility] Orthopedic Implant Right: Knee [employer]omet 11/04/2025 [id number] / [id number] / [id number] Procedures Procedure Name Priority Date/Time Associated Diagnosis Comments US RETROPERITONEAL LIMITED Routine 11/20/2020 8:43 AM EDT Encounter for abdominal aortic aneurysm (AAA) screening from Last 3 Months or Most Recently Relevant to Health Maintenance Results * Ultrasound retroperitoneal limited (11/20/2020 8:43 AM EDT) Anatomical Region Laterality Modality Pelvis, Body Ultrasound 11/20/2020 9:15 AM EDT Narrative 11/20/2020 9:24 AM EDT US RETROPERITONEAL LIMITED History: Abdominal aortic aneurysm screening, former smoker Technique: Grayscale images were obtained over the abdominal aorta. Color Doppler is also utilized. Findings: The proximal aorta measures 3.1 x 3.1 cm. The distal aorta measures 3.2 x 3.3 cm. Atherosclerosis is noted.. Impression: * Abdominal aortic aneurysm measuring up to 3.3 cm in axial diameter. Recommend follow-up CTA or MRA in 3 years. Approved by Resident: Devon Tijerina DO on 11/20/2020 9:15 AM Based on: Jacinta Major et al. Managing Incidental Findings on Abdominal and Pelvic CT and MRI, Part 2: White Paper of the ACR Incidental Findings Committee II on Vascular Findings. J Am Jovanni Radiol 2013;10:789-794. Sergio Yang MD have personally reviewed the image(s) and agree with and/or edited the report Finalized by Sergio Ledesma MD on 11/20/2020 9:24 AM Procedure Note Sergio Ledesma MD - 11/20/2020 US RETROPERITONEAL LIMITED History: Abdominal aortic aneurysm screening, former smoker Technique: Grayscale images were obtained over the abdominal aorta. ColorDoppler is also utilized. Findings: The proximal aorta measures 3.1 x 3.1 cm. The distal aorta measures 3.2 x3.3 cm. Atherosclerosis is noted.. Impression: * Abdominal aortic aneurysm measuring up to 3.3 cm in axial diameter.Recommend follow-up CTA or MRA in 3 years. Approved by Resident: Devon Tijerina DO on 11/20/2020 9:15 AM Based on: Jacinta Major, et al. Managing Incidental Findings on Abdominal andPelvic CT and MRI, Part 2: White Paper of the ACR Incidental FindingsCommittee II on Vascular Findings. J Am Jovanni Radiol 2013;10:789-794. ISergio MD have personally reviewed the image(s) and agree withand/or edited the report Finalized by Sergio Ledesma MD on 11/20/2020 9:24 AM Raysa Swanson MD [facility] [place] Final Resul t from Last 3 Months or Most Recently Relevant to Health Maintenance Insurance [employer] MEDICARE Advance Directives Documents on File Type Date Recorded Patient Triage Rn Expl anation Advance Directive 05/11/2024 5:56 AM TTH E D DNR FORM 05/11/24 Durable Power of Respiratory Therapist Assistant 04/16/2023 6:37 PM TTH ER DNRCC 024 * DNR Comfort Care (DNRCC) [place] (Latest Code Status on File) Date Activated Date Inactivated Comments 05/11/2024 7:49 AM 05/11/2024 4:40 PM * DNR Comfort Care Arrest (DNR-CCA) [place] Date Activated Date Inactivated Comments 04/16/2023 6:43 PM 04/20/2023 5:28 PM Care Teams Unit Receptionist Relationship Specialty Start Date End Date Javad Alegre DO [address] [facility], [place] [address] PCP - General Family Medicine 05/11/24
--- OUTSIDE RECORDS SUMMARY | 2024-08-17 10:07 | XMS_ITS | Clinical Summary ---
Author Organization [facility] Address [address] [place] [address] Care Team Providers Care Guest Service Host Name Role Phone Raysa Swanson MD Primary Care Provider [phone] Active Problems Problem Noted Date Diagnosed Date Cognitive deficits 10/26/2022 Parkinson's disease 10/26/2022 Cervical spondylosis 10/26/2022 Social History Tobacco Use Types Packs/Day Years Used Date Smoking Tobacco: Never Assessed [place] Safety & Environment Answer Date Rec orded Fear of Current or Ex-Partner Not on file Emotionally Abused Not on file 04/22/2023 Physically Abused Not on file 04/22/2023 Sexually Abused Not on file 04/22/2023 Physically or Sexually Abused Not on file Sex and Gender Information Value Date Recorded Sex Assigned at Not on file Legal Sex Male 11:00 AM EDT Gender Identity Not on file Sexual Orientation Not on file Plan of Treatment Health Maintenance Due Date Last Done Comments CT Colonography 1950 Colonoscopy 1950 Colorectal Cancer Screening 1950 Diabetes: Hemoglobin A1C 1950 FIT-DNA 1950 FIT 1950 FOBT 1950 Medicare Annual Wellness (AWV) 1950 Sigmoidoscopy 1950 Diabetes: Retinopathy Screening 07/15/1959 Depression Screening 1961 Adult Tetanus 07/15/1971 Pneumococcal Vaccine: 50+ Years (1 of 1 - PCV) 07/15/1999 Fall Risk Screening 2014 Diabetes: Urine Protein Screening 12/24/2016 12/25/2015 COVID-19 Vaccine (2023-2 5 season) 2023 05/22/2020, 04/24/2020 Influenza Vaccine (Season Ended) 2024 Zoster Vaccines Completed 07/23/2021, 05/12/2021 HIB Vaccines Aged Out No longer eligi ble based on patient's age to complete this topic HPV Vaccines Aged Out No longer eligi ble based on patient's age to complete this topic IPV Vaccines Aged Out No longer eligi ble based on patient's age to complete this topic Meningococcal B Vaccine Aged Out No l onger eligible based on patient's age to complete this topic Meningococcal Vaccine Aged Out No umang jalil eligible based on patient's age to complete this topic Rotavirus Vaccines Aged Out No longer eligible based on patient's age to complete this topic Insurance [employer] MEDICARE [place] [id number] Care Teams Guest Service Host Relationship Specialty [place] [address] [facility] [place] [address] [place] [address] PCP - General 09/09/22
--- OUTSIDE RECORDS SUMMARY | 2024-08-17 10:07 | XMS_ITS | Referral Summary ---
Author Organization The [facility] Address [address] [place] [address] Care Team Providers Care Fuel Conversion Technician Name Role Phone Raysa Swanson MD Primary Care Provider [phone] Active Problems Problem Noted Date Diagnosed Date Cognitive deficits 10/26/2022 Parkinson's disease 10/26/2022 Cervical spondylosis 10/26/2022 Social History Tobacco Use Types Packs/Day Years Used Date Smoking Tobacco: Never Assessed [place] Safety & Environment Answer Date Rec orded [...] Orientation Not on file Plan of Treatment Not on file Insurance [facility] MEDICARE Care Teams Fuel Conversion Technician Relationship Specialty [place] [id number] [facility] [place] [address] [place] [address] PCP - General 09/09/22
--- NOTE | 2024-08-17 10:09 | US_ITS ---
The [address] [address] Patient Name: SUSIE SAMUELS MRN: [id number] date: 1950 Sex: M Assigned Patient Location: US Current Patient Location: US Accession/Order Number: [id number] Exam Date: 08/17/2024 11:23 Report Date: 08/17/2024 11:53 At the request of: SANDRO CHAPPELL MD Procedure: US scrotum SCROTAL ULTRASOUND WITH DUPLEX IMAGING CLINICAL DATA: Epididymitis COMPARISON: CT pelvis 02/24/2024 The right testis measures 3.2 x 1.7 x 2.1 cm . The left testis measures 3.9 x 2.2 x 2.6 cm. There is documentation of bilateral duplex and color Doppler testicular blood flow. Testicular echogenicity is mildly heterogeneous. There is also a hypoechoic masslike area at the superior aspect of the left testis measuring approximately 2.6 x 2.3 x 2.0 cm in size. There is associated blood flow. No focal intratesticular masses are seen on the right. The epididymal head on the left is larger than the right and there is mild hyperemia. Epididymitis is not excluded. No hydrocele is seen. Mildly prominent vessels are present adjacent to the testes on both sides. There is slight increase in blood flow with Valsalva varicoceles are not excluded. US/US scrotum IMPRESSION: NO EVIDENCE OF TORSION. HYPOECHOIC MASSLIKE AREA AT THE SUPERIOR POLE OF THE LEFT TESTIS WITH BLOOD FLOW. ALTHOUGH THIS COULD BE INFECTIOUS OR INFLAMMATORY, CORRELATION AND FOLLOW-UP WILL BE NEEDED SINCE NEOPLASM IS NOT EXCLUDED. MILDLY PROMINENT AND HYPEREMIC LEFT EPIDIDYMIS. THIS BE COMPATIBLE WITH THE REPORTED HISTORY OF EPIDIDYMITIS. POSSIBLE VARICOCELES. Impression dictated by: Tiffanie Burr M.D. 08/17/2024 11:53 AM Dictation Location: [place] [address] Electronically authenticated by: [id number] Y Date: 08/17/2024 11:53
== END 2024-08-17 10:05 | disposition home or self-care (01) ==
LOC: US 10:04
PROVIDERS: PCP Family Medicine; Visit Provider Urology
DX: N43.3 Hydrocele, unspecified (principal); N45.1 Epididymitis; N50.0 Atrophy of testis; D40.12 Neoplasm of uncertain behavior of left testis
CPT/HCPCS: 76870

== ENCOUNTER 2024-10-10 13:55 | Outpatient (OUT) | payer MEDICARE, SELFPAY ==
--- NOTE | 2024-10-10 13:57 | US_ITS ---
The [address] [address] Patient Name: SUSIE SAMUELS MRN: [id number] date: 1950 Sex: M Assigned Patient Location: US Current Patient Location: US Accession/Order Number: [id number] Exam Date: 10/10/2024 14:43 Report Date: 10/10/2024 14:49 At the request of: SNADRO CHAPPELL MD Procedure: US scrotum Scrotal ultrasound Reason for exam: Ultrasound follow-up mild hydrocele. Epididymitis. Comparison: Scrotal ultrasound 08/17/2024 Technique: Grayscale, color Doppler and spectral Doppler images of the scrotal contents were obtained. Findings: The right testicle appears heterogenous in echotexture measuring 3.1 x 1.7 x 2.2 cm without measurable mass or microlithiasis. Normal arterial and venous Doppler waveforms. No hydrocele. Epididymis appears heterogenous and prominent. Left testicle measures 3.7 x 2.0 x 1.9 cm. This has also appears heterogenous in echotexture without mass or microlithiasis. Once again demonstrated is a hypoechoic area involving the superior pole of the left testicle. Normal arterial and venous Doppler waveforms. Epididymis appears unremarkable. No hydrocele. US/US scrotum Impression: Improvement of the left epididymitis findings compared to the prior study. Heterogenous appearing testicles without mass or torsion. Findings are similar to the prior study. Findings are nonspecific and could relate to an infectious, inflammatory process. A torsion/detorsion injury involving the left testicle cannot BE excluded. Right epididymis appears enlarged and heterogeneous in echotexture suspicious for developing right epididymitis. Impression dictated by: Fazal Shay Jr., D.O. 10/10/2024 2:49 PM Dictation Location: [place] [address] Electronically authenticated by: [id number] Y Date: 10/10/2024 14:49
--- OUTSIDE RECORDS SUMMARY | 2024-10-10 13:57 | XMS_ITS | Encounter Summary ---
Author Organization [employer] Address [id number] [address] [place] [address] Care Team Providers Care Interior Design Professional Name Role Phone Javad Alegre Primary Care Provider [phone] Encounter Details Date Type Department Care Team (Late st Contact Info) Description 05/11/2024 Orders Only [facility] [place] [address] Transcribe, Orders Support User Pain (Primary Dx) Social History Tobacco Use Types Packs/Day Years Used Date Smoking Tobacco: Former Cigarettes 1.5 47 0 05/03/1968 - 05/04/2015 Smokeless Tobacco: Never Alcohol Use Standard Drinks/Week Comments No 0 (1 standard drink = 0.6 oz pur e alcohol) socially yearly per patient [facility] Utilities Answer Date Recorded In the past 12 months has [employer], gas, oil, or water company threatened to [...] documented as of this encounter Care Teams Interior Design Professional Relationship Specialty Start Date End Date Javad Alegre DO [address] [facility] [place] [address] PCP - General Family Medicine 05/11/24 documented as of this encounter
--- OUTSIDE RECORDS SUMMARY | 2024-10-10 13:57 | XMS_ITS | Encounter Summary ---
Author Organization [facility] Sys tem Address [facility] [place]-[id number] [address] [facility] [place] [address] Care Team Providers Care Supervisor Bakery Sanitation Name Role Phone Javad Alegre DO Primary Care Provider [phone] Encounter Details Date Type Department Care Team (Late st Contact Info) Description 02/24/2024 Orders Only [facility] [address] [place] [id number] Javad Alegre DO [address], [place] [address] Social History Tobacco Use Types Packs/Day Years Used Date Smoking Tobacco: Former Cigarettes 1.5 47 0 05/03/1968 - 05/04/2015 Smokeless Tobacco: Never Alcohol Use Standard Drinks/Week Comments No 0 (1 standard drink = 0.6 oz pur e alcohol) socially yearly [facility] Utilities Answer Date Recorded In the past 12 months has [employer], gas, oil, or water [employer] threatened to shut off services in your [...] on filedocumented in this encounter Care Teams Supervisor Bakery Sanitation Relationship Specialty Start Date End Date Javad Alegre DO [address], [place] [address] PCP - General Family Medicine 05/11/24 documented as of this encounter
--- OUTSIDE RECORDS SUMMARY | 2024-10-10 13:57 | XMS_ITS | Encounter Summary ---
Author Organization [facility] Sys tem Address [id number] [address] [place] [address] Care Team Providers Care Applied Psychology Teacher Name Role Phone PaulieJavad romero Primary Care Provider Encounter Details Date Type Department Care Team (Late st Contact Info) Description 12/12/2023 Orders Only [facility] [address] [facility] [place] [place] [address] Ref Prov, [place] [address] Social History Tobacco Use Types Packs/Day Years Used Date Smoking Tobacco: Former Cigarettes 1.5 47 0 05/03/1968 - 05/04/2015 Smokeless Tobacco: Never Alcohol Use Standard Drinks/Week Comments No 0 (1 standard drink = 0.6 oz pur e alcohol) socially yearly [facility] Utilities Answer Date Recorded In the past 12 months has [employer], gas, oil, or water company threatened [...] on filedocumented in this encounter Care Teams Applied Psychology Teacher Relationship Specialty Start Date End Date Javad Alegre DO [address], [place] [address] PCP - General Family Medicine 05/11/24 documented as of this encounter
--- OUTSIDE RECORDS SUMMARY | 2024-10-10 13:57 | XMS_ITS | Clinical Summary ---
Author Organization [facility] Address [address] [place] [address] Care Team Providers Care Sheet Pile Hammer Operator Name Role Phone Raysa Swanson MD Primary Care Provider [phone] Active Problems Problem Noted Date Diagnosed Date [...] 5 season) 2023 05/22/2020, 04/24/2020 Influenza Vaccine (#1) 2024 Zoster Vaccines Completed 07/23/2021, 05/12/2021 HIB [...] complete this topic Insurance UNITED HEALTHCARE MEDICARE [place] [id number] Care Teams Sheet Pile Hammer Operator Relationship Specialty [place] [address] [facility] [place] [address] [place] [address] PCP - General 09/09/22
--- OUTSIDE RECORDS SUMMARY | 2024-10-10 13:57 | XMS_ITS | Clinical Summary ---
Author Organization [employer] tem Address [id number] [address] 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 (CMS-HCC); Recurrent falls; Neurogenic orthostatic hypotension (CMS-HCC) 08/10/2024 Continuing Care [facility] [address] [place] [address] Javad Alegre, Lewy body dementia with psychotic disturbance, unspecified dementia severity (CMS-HCC) (Primary Dx); 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 (CMS-HCC); Recurrent major depressive disorder, in partial remission 07/13/2024 Continuing Care [facility] [address] [place] [address] Javad Alegre, Lewy body dementia with psychotic disturbance, unspecified dementia severity (CMS-HCC) (Primary Dx); Recurrent falls; Skin tear of right elbow without complication, subsequent encounter; Impaired gait from Last 3 Months Immunizations Immunization Administration [...] pur e alcohol) socially yearly per patient [employer] Answer Date Recorded In the past 12 months has [employer], [employer], or water [employer] threatened to shut off services in your [...] Sign Reading Time Taken Comments Blood Pressure 142/56 09/14/2024 5:31 PM EDT Pulse 64 09/14/2024 5:31 PM EDT Temperature 36.3 C (97.4 F) 09/14/2024 5:31 PM EDT Respiratory Rate 20 09/14/2024 5:31 PM EDT Oxygen Saturation 99% 09/14/2024 5:31 PM EDT Inhaled Oxygen Concentration - - Weight 76.7 kg (169 lb 3.2 oz) 09/14/2024 5:31 P M EDT Height 172.7 cm (5' [...] Completed 07/23/2021, Medical Devices Implanted Type Area Customs Officer Device Identifier Shelf Expiration Date Model / Serial / Lot Brng Tib [id number] 0d Kn Ant - [id number] Implanted:Qty : 1 on 05/14/2016 by Derrek Arshad MD at [facility] Bearing Left: Knee [employer] 08/06/2020 [id number] / / [id number] Brng Tib [id number] 3d Std - [id number] Implanted:Qty : 1 on 10/22/2016 by Eduardo Hennessy MD at [facility] Bearing Right: Knee [employer] 12/23/2020 [id number] / [id number] / [id number] Cement Bn [place] Radpq 40g Rpl [id number] - [id number] Implanted:Qty : 2 on 05/14/2016 by Derrek Arshad MD at [facility] Cement Left: Knee [employer] 10/28/20201112- 40- / / [id number] Cement Bn Pal[place] Radpq 40g Rpl [id number] - [id number] Implanted:Qty : 2 on 10/22/2016 by Eduardo Hennessy MD at [facility] Cement Right: Knee [employer] 01/27/2021 40- / [id number] / [id number] Cmpt Fem Kn Lt 70mm Cr Cmnt - [id number] Implanted:Qty : 1 on 05/14/2016 by Derrek Arshad MD at [facility] Orthopedic Implant Left: Knee [employer] 04/30/2026 [id number] / / [id number] Ty Tib As Mx 79mm Intlk Cocr - [id number] Implanted:Qty : 1 on 05/14/2016 by Derrek Arshad MD at [facility] Orthopedic Implant Left: Knee [employer] 02/18/2026 [id number] / / [id number] Cmpt Ptlr Thn 34mm 3 Pg Kn Ser - [id number] Implanted:Qty : 1 on 05/14/2016 by Derrek Arshad MD at [facility] Orthopedic Implant Left: Knee [employer] 05/07/2021 [id number] / / [id number] Cmpt Ptlr Thn 8.6mm 37mm 3 Pg - [id number] Implanted:Qty : 1 on 10/22/2016 by Eduardo Hennessy MD at [facility] Orthopedic Implant Right: Knee [employer] 05/19/2021 [id number] / [id number] / [id number] Cmpt Fem Kn Rt 70mm Cr Cmnt - [id number] Implanted:Qty : 1 on 10/22/2016 by Eduardo Hennessy MD at [facility] Orthopedic Implant Right: Knee [employer] 07/09/2026 [id number] / [id number] / [id number] Ty Tib 79mm Cocr Kn I Beam - [id number] Implanted:Qty : 1 on 10/22/2016 by Eduardo Hennessy MD at [facility] Orthopedic Implant Right: Knee [employer] 11/04/2025 [id number] / [id number] / [id number] Procedures Procedure Name Priority Date/Time Associated Diagnosis [...] on 11/20/2020 9:24 AM Raysa Swanson MD G US ORDERABLES Final Resul t from Last 3 Months or Most Recently Relevant to Health Maintenance Insurance UNITED[employer]ALTHCARE MEDICARE Advance Directives Documents on File Type Date Recorded Patient Sprinkler Inspector Expl anation Advance Directive 05/11/2024 5:56 AM TT E D DNR FORM 05/11/24 Durable Power of Speech Language Pathology Assistant 04/16/2023 6:37 PM TT ER DNRCC 024 * DNR Comfort Care (DNRCC) [place] (Latest Code Status on File) Date Activated Date Inactivated Comments 05/11/2024 7:49 AM 05/11/2024 4:40 PM * DNR Comfort Care Arrest (DNR-CCA) [place] Date Activated Date Inactivated Comments 04/16/2023 6:43 PM 04/20/2023 5:28 PM Care Teams Manager Integrity Relationship Specialty Start Date End Date Javad Alegre DO [address], [facility] [place] [address] PCP - General Family Medicine 05/11/24"
--- OUTSIDE RECORDS SUMMARY | 2024-10-10 13:57 | XMS_ITS | Encounter Summary ---
Author Organization [facility] Sys tem Address [facility]-[id number] [address] [facility] [place] [address] Care Team Providers Care Board Turner Name Role Phone Javad Alegre DO Primary Care Provider [phone] Encounter Details Date Type Department Care Team (Late st Contact Info) Description 02/23/2024 Orders Only [facility] - [facility] [address] [place] [address] Javad Alegre DO [address], [place] [address] Social History Tobacco Use Types Packs/Day Years Used Date Smoking Tobacco: Former Cigarettes 1.5 47 0 05/03/1968 - 05/04/2015 Smokeless Tobacco: Never Alcohol Use Standard Drinks/Week Comments No 0 (1 standard drink = 0.6 oz pur e alcohol) socially yearly [facility] Utilities Answer Date Recorded In the past 12 months has [employer], gas, oil, or water [employer] threatened to shut off services in your [...] on filedocumented in this encounter Care Teams Board Turner Relationship Specialty Start Date End Date Javad Alegre DO [address], [place] [address] PCP - General Family Medicine 05/11/24 documented as of this encounter
--- OUTSIDE RECORDS SUMMARY | 2024-10-10 14:23 | XMS_ITS | CCD ---
Author Organization [facility] Care Team Providers Care Aerodynamic Consultant Name Role Phone Dandre Swanson MD Primary Care Provider VALE EVANGELISTA Attending Unavailable VALE EVANGELISTA Referring Unavailable SWANSON, DANDRE M Primary Care Unavailable VALE EVANGELISTA Referring Unavailable SWANSON, DANDRE M Primary Care Unavailable SWANSON, DANDRE M Primary Care Unavailable VALE EVANGELISTA Attending Unavailable VALE EVANGELISTA Referring Unavailable SWANSON, DANDRE Nico Primary Care Unavailable SWANSON, DANDRE M Referring Unavailable MARAL GIORDANO Attending Unavailable VALE EVANGELISTA Referring Unavailable PAT PRYOR Attending Unavailable VALE EVANGELISTA Referring Unavailable Swanson Dandre REYES Primary Care Provider KAREN DANDRE M Primary Care Unavailable SWANSON, DANDRE M Referring Unavailable SWANSON, DANDRE M Referring Unavailable SWANSON, DANDRE M Primary Care Unavailable MAIRA MORALES Referring Unavailable SWANSON, DANDRE M Primary Care Unavailable JOHAN WISEMAN Referring Unavailable SWANSON, DANDRE M Primary Care Unavailable SWANSON, DANDRE M Primary Care Unavailable LETY STEIN Admitting Unavailable SHIRLEY CASTANEDA Attending Unavailable BERTRAM HATCH Consulting Unavailable SWANSON, DANDRE M Primary Care Unavailable JOSEF FARAH Consulting Unavailable LISET, MARTA Admitting Unavailable LISET, MARTA Attending Unavailable JOHAN WISEMAN Consulting Unavailable CODY DOUGHERTY Consulting Unavailable Dandre Swanson MD Primary Care Provider DANDRE SWANSON Referring Unavailable FURLONGJAVAD Primary Care Unavailable SWANSON, DANDRE M Referring Unavailable FURLONG, JAVAD Klein Primary Care Unavailable Furlong DO, Javad G Primary Care Provider [phone] JAVAD RODRIGUEZ Primary Care Physician [phone] Tariq CHAPPELL Attending Unavailable Tariq CHAPPELL Admitting Unavailable Tariq CHAPPELL Attending Unavailable MAXI MACE Attending Unavailable JAVAD RODRIGUEZ Primary Care Unavailable JAVAD RODRIGUEZ Referring Unavailable JAVAD RODRIGUEZ Primary Care Unavailable Tariq CHAPPELL Attending Unavailable Allergies Allergy Classification Reported Allergen(s) Allergy Type Date of Onset Reaction(s) Facility (20 sources) Penicillins; Translations: [PENICILLINS] Propensity to adverse reactions to drug 5 Anaphylaxis [facility] (20 sources) Simvastatin; Translations: [SIMVASTATIN] Drug Allergy 5 Other (See Comments) [email or web address] Phone: (1 source) ALLERGIES NOT ON FILE; Translations: [ALLERGIES NOT ON FILE] Propensity to adverse reactions (disorder) [facility] Repository (9 sources) Vibegron; Translations: [VIBEGRON] Propensity to adverse reactions to drug 4 Rash [email or web address] Phone: (2 sources) Metformin And Related Propensity to adverse reactions to drug 4 Diarrhea [facility] (7 sources) Gemtuzumab ozogamicin; Translations: [GEMTUZUMAB OZOGAMICIN] Drug Allergy 4 [facility] Repository (7 sources) metFORMIN; Translations: [METFORMIN] Drug Allergy 5 Diarrhea [facility] Repository (4 sources) Penicillin; Translations: [penicillin] Drug Allergy Unknown (qualifier value) [facility] Medications Current Medications Medication Drug Class(es) Dates Sig (Normalized) Sig (Original) Acetaminophen (11 sources) Start: 08-06-2024 acetaminophen Refills(s) 0 Start Date: 08/06/24 Status: Ordered Repeat number: 1 Start: 06-16-2023 acetaminophen (TYLENOL) tablet 650 mg take 2 tablets by mo uth every six hours as needed for pain acetaminophen (TYLENOL) 325 MG tablet Take 650 mg by mouth every 6 hours as needed for Pain 0 Active atorvastatin 40 mg oral tablet (20 sources) HMG-CoA Reductase Inhibitor Start: 08-06-2024 atorvastatin 40 mg T ab Refills(s) 0 Start Date: 08/06/24 Status: Ordered Repeat number: 1 Start: 09-01-2022 atorvastatin ( LIPITOR) 40 MG tablet Indications: Type 2 diabetes mellitus without complication, with long-term current use of insulin ([facility]) , Other hyperlipidemia TAKE 1 TABLET IN THE MORNING 90 tablet 3 09/01/2022 Active Start: 10-13-2021 take 1 tablet by brad th in the morning atorvastatin (LIPITOR) 40 MG tablet Indications: Type 2 diabetes mellitus without complication, with long-term current use of insulin ([facility]) , Other hyperlipidemia Take 1 tablet by mouth in the morning. 90 tablet 3 10/13/2021 Active Start: 02-12-2016 take 1 tablet by brad th three times weekly atorvastatin (LIPITOR) 40 mg tablet Take 1 tablet (40 mg total) by mouth See Admin Instructions. THREE TIMES A WEEK (m, w, f) 02/12/2016 Active Start: 02-12-2016 take 2 tablets by mo uth three times weekly atorvastatin (LIPITOR) 20 mg tablet Take 2 tablets (40 mg total) by mouth See Admin Instructions. THREE TIMES A WEEK 02/12/2016 Active carbidopa 25 mg / levodopa 250 mg oral tablet (20 sources) Aromatic Amino Acid Decarboxylation Inhibitor, Aromatic Amino Acid Start: 08-06-2024 carbidopa-levodopa 2 5 mg-250 mg Tab 1 tab(s), Refill(s) 0 Start Date: 08/06/24 Status: Ordered Repeat number: 1 Start: 03-31-2023 End: 09-27-2023 carbidopa-levodopa (SINEMET) 25-250 [...] Parkinson's disease without dyskinesia or fluctuating manifestations ([facility]) Take 1 tablet by mouth 4 times [...] 720 tablet 3 02/10/2022 Active donepezil hydrochloride 10 m g oral tablet (20 sources) Start: 08-06-2024 donepezil 10 m g Tab 10 mg = 1 tab(s), Refills(s) 0 Start Date: 08/06/24 Status: Ordered Repeat number: 1 Start: 01-10-2024 take 2 tablets by mo uth every twenty-four hours donepeziL (ARICEPT) 10 mg tablet Take 2 tablets (20 mg total) by mouth daily. 01/10/2024 Active Start: 06-16-2023 take 15 mg by mouth once daily 15 mg, Oral, NIGHTLY, First dose on Luna 06/16/23 at 2100, Until Discontinued Start: 04-07-2023 End: 03-24-2024 take 1.5 tablets by mouth once daily donepeziL (ARICEPT) 10 mg tablet Take 1.5 tablets (15 mg total) by mouth nightly. 04/07/2023 03/24/2024 Active Start: 08-12-2022 take 1 tablet by mouth once da marek donepezil (ARICEPT) 5 MG tablet Take 1 tablet by mouth nightly 30 tablet 5 08/12/2022 Active FLUoxetine 40 mg oral capsule (20 sources) Serotonin Reuptake Inhibitor Start: 08-06-2024 FLUoxetine 20 mg Cap 20 mg = 1 cap(s), Refills(s) 0 Start Date: 08/06/24 Status: Ordered Repeat number: 1 Start: 08-06-2024 FLUoxetine 40 mg Cap 40 mg = 1 cap(s), Refills(s) 0 Start Date: 08/06/24 Status: Ordered Repeat number: 1 Start: 06-16-2023 take 40 mg by mouth once daily 40 mg, Oral, DAILY, First dose on Luna 18/24 at 1500, Until Discontinued Start: 03-31-2023 End: [...] 09/01/2022 09/08/2022 Discontinued (REORDER) Start: 10-26-2021 FLUoxetine (LA OZAC) 20 MG capsule Indications: Recurrent major depressive disorder, in partial remission (HCC) TAKE 1 CAPSULE DAILY 90 capsule 3 10/26/2021 Active Start: 01-19-2016 take 3 capsules by m outh once daily before breakfast FLUoxetine (PROzac) 20 mg capsule Indications: Anxiety Take 3 capsules (60 mg total) by mouth every morning before breakfast Indications: Anxiety. 01/19/2016 Active 1000 ml glucose 100 mg/ml injection (3 sources) Start: 06-16-2023 take 1 mL intravenously every hour IntraVENous, at 100 mL/hr, CONTINUOUS PRN, if blood glucose remains LESS THAN 70 mg/dL after 2 dextrose 10% intravenous boluses or administration of glucagon, Starting on Tue06/16/23 at 1352 If blood glucose fails to [...] (4 tablet ), Oral, PRN, Starting on Tue06/16/23 at 1352, Until Discontinued, Low blood sugar [...] FOR PAIN 270 tablet 4 10/16/2018 Active 3 ml insulin detemir 100 unt/ml pen injector (20 sources) Insulin Analog Start: 03-31-2024 insulin detemi r U-100 (LEVEMIR FLEXPEN) 100 unit/mL (3 mL) insulin pen Inject 20 Units under the skin nightly. 03/31/2024 Active Start: 04-20-2023 insulin detemi r U-100 (LEVEMIR) [...] long-term current use of insulin (HCC) Inject 40 Units into the skin nightly 36 mL 3 10/13/2021 01/11/2022 Active 3 ml insulin lispro 100 unt/ml pen injector (7 sources) Insulin Analog Start: 08-06-2024 Insulin Lispro KwikPen 100 units/mL injectable solution 1 unit(s), Refills(s) 0 Start Date: 08/06/24 Status: Ordered Repeat number: 1 Start: 11-09-2023 insulin lispro (HumaLOG U-100 Insulin) 100 unit/mL injection Inject under the skin 4 (four) times a day before meals and nightly. 201-250= 2 units 251-300= 4 units 301-350= 6 units 351-400= 8 units Notify MD less than 60 or greater than 400 11/09/2023 Active lisinopril 2.5 mg oral tablet (9 sources) Angiotensin Converting Enzyme Inhibitor Start: 04-27-2022 lisinopril (PRINIVIL;ZESTRIL) 2.5 MG tablet Indications: Type 2 diabetes mellitus without complication, with long-term current use of insulin (HCC) TAKE 1 TABLET DAILY 90 tablet 3 04/27/2022 Active Start: 04-13-2021 lisinopril (LA INIVIL;ZESTRIL) 2.5 MG tablet Indications: Type 2 diabetes mellitus without complication, with long-term current use of insulin (HCC) TAKE 1 TABLET DAILY 90 tablet 3 [...] in Patients with CrCl less than 30ml/min melatonin 3 mg oral tablet (5 sources) Start: 08-04-2023 t a k e 3 m g b y m o u t h e v e r y t w e n t y - f o u r h o u r s melatonin (CIRCADIN) tablet Take 1 table t (3 mg total) by mouth daily. 08/04/2023 Active memantine hydrochlor carisa 5 mg oral tablet (7 sources) N - m e t h y l - D - a s p a r t a t e R e c e p t o r A n t a g o n i s t Start: 12-08-2023 t a k e 1 t a b l e t b y m o u t h e v e r y t w e n t y - f o u r h o u r s memantine (NAMENDA) 5 mg tablet Take 1 t ablet (5 mg total) by mouth daily. 12/08/2023 Active 24 hr metFORMIN hydrochlor carisa 500 mg [...] Discontinued (Stop Taking at Discharge) midodrine hydrochloride 10 mg oral tablet (20 sources) alpha-Adrenergic Agonist Start: 03-21-2024 take 1 tablet by mouth three times daily midodrine (PROAMATINE) 10 mg tablet Take 1 tablet (10 mg total) by mouth 3 (three) times a day. 03/21/2024 Active Start: 06-16-2023 2.5 mg, Oral, 3 TIMES DAILY WITH MEALS, First dose on Tue06/16/23 at 1700, Until Discontinued Do not give [...] mouth Every Day 0 05/25/2023 08/23/2023 Active omeprazole 20 mg delayed release oral capsule (2 sources) Proton Pump Inhibitor Start: 08-06-2024 take 1 mg by mouth once daily omeprazole 20 mg Cap-DR mg cap(s), Oral, Daily, Refills(s) 0 Start Date: 08/06/24 Status: Ordered Repeat number: 1 ondansetron (ZOFRAN-ODT) disintegrating tablet 4 mg (1 source) Start: 06-16-2023 ondansetron (ZOFRAN-ODT) disintegrating tablet 4 mg pantoprazole 20 mg delayed release oral tablet (20 sources) Proton Pump Inhibitor Start: 04-21-2024 take 1 tablet by mouth once daily before breakfast pantoprazole (PROTONIX) 20 mg EC tablet Take 1 tablet (20 mg total) by mouth every morning before breakfast. 04/21/2024 Active Start: 04-20-2023 End: 05-07-2024 take 1 tablet by mouth once daily before breakfast pantoprazole (PROTONIX) 40 mg EC tablet Take 1 tablet (40 mg total) by mouth every morning before breakfast. 07/28/2023 Active Potassium Chloride (1 source) Start: 06-16-2023 potassium chlo ride (KLOR-CON M) extended release tablet 40 mEq [...] 30 mg, Oral, Nightly, First dose on Luna 06/16/23 at 2100, Until Discontinued Start: 06-15-2023 End: [...] total) before bedtime. 0 04/01/2023 05/31/2023 Active sAXagliptin 5 mg oral tablet (7 sources) Dipeptidyl Peptidase 4 Inhibitor Start: 02-16-2024 take 1 tablet by mouth every twenty-four hours sAXagliptin (ONGLYZA) 5 mg tablet Take 1 tablet (5 mg total) by mouth daily. 02/16/2024 Active SITagliptin 50 mg oral tablet (2 [...] mg/ml injection (5 sources) Start: 06-17-2023 sodium chloride flush 0.9 % injection 10 mL Start: [...] sodium chloride 0.9 % bolus 1,000 mL tolterodine tartrate 2 mg oral tablet (2 sources) Cholinergic Muscarinic Antagonist Start: 08-06-2024 tolterodine 2 mg Tab 2 mg = 1 tab(s), Refills(s) 0 Start Date: 08/06/24 Status: Ordered Repeat number: 1 vitamin B12 (12 sources) Vitamin B12 Start: 08-06-2024 Vitamin B12 Refills(s) 0 Start Date: 08/06/24 Status: Ordered Repeat number: 1 Start: 05-11-2022 End: 05-11-2023 take 1 tablet by mouth once daily vitamin B-12 (CYANOCOBALAMIN) 100 MCG tablet Take 1 tablet by mouth daily 90 tablet 5 05/11/2022 Active Completed/Discontinued Medications Medication Drug Class(es) Dates Sig (Normalized) Sig (Original) 0.4 ml enoxaparin sodium 100 mg/ml prefilled syringe (1 source) Low Molecular Weight Heparin Start: 06-16-2023 inject 40 mg by subcutaneous injection once daily 40 mg, SubCUTAneous, DAILY, First dose on Tue06/16/23 at 1500, Until Discontinued Indication of Use: Prophylaxis-DVT/P E Administer by deep subCUTAneous injection with pt lying down. Alternate injection sites on abdominal wall. Do not rub site after injection. Check with provider prior to any invasive procedure. gadoteridol (PROHANCE) injection 19 mL (1 source) [...] at 0900, Until Discontinued polyethylene glycol 3350 06203 mg powder for oral solution (1 source) [...] Active Problems Problem Classification Problem Date Documented Date Episodic/Chronic Anxiety disorders (20 sources) Anxiety; Translations: [Anxiety disorder, unspecified] Onset: 05-14-2016 10-23-2016 Chronic Aortic; peripheral; and visceral artery aneurysms (20 sources) Abdominal aortic aneurysm; Translations: [Abdominal aortic aneurysm, without rupture] Onset: 12-02-2020 12-02-2020 Chronic Delirium, dementia, and amnestic and other cognitive disorders (20 sources) Senile dementia of the Lewy body type; Translations: [Dementia with Lewy bodies] Onset: 08-05-2023 02-24-2024 Chronic Diabetes mellitus with complications (20 sources) Neuropathy due to type 2 diabetes mellitus; Translations: [Type 2 diabetes mellitus with diabetic neuropathy, unspecified] Onset: 12-17-2014 01-19-2022 Chronic Disorders of lipid metabolism (20 sources) Hyperlipidemia; Translations: [Other hyperlipidemia] Onset: 12-17-2014 Chronic E Codes: Fall (1 source) Fall Onset: 05-11-2024 Esophageal disorders (11 sources) Gastroesophageal reflux disease; Translations: [Gastro-esophageal reflux disease without esophagitis] Onset: 01-27-2024 01-27-2024 Chronic Essential hypertension (19 sources) Essential hypertension; Translations: [Essential (primary) hypertension] Onset: 09-09-2023 09-09-2023 Chronic Genitourinary symptoms and ill-defined conditions (18 sources) Urinary incontinence; Translations: [Unspecified urinary incontinence] Onset: 09-09-2023 09-09-2023 Chronic Impulse control disorders, NEC (1 source) Homicidal ideations; Translations: [Homicidal ideations] Onset: 07-18-2023 Episodic Inflammatory conditions of male genital organs (3 sources) Epididymitis; Translations: [Epididymitis] Onset: 08-06-2024 Episodic Mood disorders (20 sources) Depressive disorder; Translations: [Depression] Onset: 10-22-2016 12-19-2018 Chronic Open wounds of extremities (1 source) Tear of skin; Translations: [Laceration without foreign body of right elbow, subsequent encounter] 07-23-2024 Episodic Osteoarthritis (20 sources) Arthritis of knee; Translations: [Unilateral primary osteoarthritis, unspecified knee] Onset: 12-17-2014 12-17-2014 Chronic Other connective tissue disease (12 sources) Recurrent falls ; Translations: [Repeated falls] Onset: 02-24-2024 02-24-2024 Episodic Other hereditary and degenerative nervous system conditions (2 sources) Mild cognitive impairment, so stated; Translations: [Mild cognitive impairment of uncertain or unknown etiology] Onset: 01-25-2023 Chronic Other hereditary and degenerative nervous system conditions (4 sources) Sympathotonic orthostatic hypotension; Translations: [Multi-system degeneration of the autonomic nervous system] 03-31-2024 Chronic Other male genital disorders (1 source) Hydrocele of testis; Translations: [Hydrocele, unspecified] Onset: 08-06-2024 Episodic Other male genital disorders (3 sources) Atrophy of testis; Translations: [Atrophy of testis] Onset: 08-06-2024 Episodic Other male genital disorders (2 sources) Disorder of male genital organ 08-06-2024 Episodic Other nervous system disorders (20 sources) Neuropathy; Translations: [Polyneuropathy, unspecified] Onset: 01-14-2022 01-14-2022 Chronic Other nervous system disorders (3 sources) Tremor; Translations: [Tremor, unspecified] Episodic Other nutritional; endocrine; and metabolic disorders (16 sources) Cholesterol level - finding; Translations: [Lipoprotein deficiency] Onset: 09-14-2023 09-14-2023 Chronic Parkinson`s disease (20 sources) Parkinson's disease; Translations: [Parkinson's disease] Onset: 01-14-2022 01-14-2022 Chronic Parkinson`s disease (3 sources) Parkinson`s disease; Translations: [Parkinson's disease with dyskinesia, without mention of fluctuations] Onset: 01-14-2022 Residual codes; unclassified (1 source) Sleep apnea, unspecified; Translations: [Sleep apnea, unspecified] Onset: 09-13-2022 Chronic Residual codes; unclassified (20 sources) Sleep apnea; Translations: [Sleep apnea, unspecified] Onset: 09-13-2022 09-13-2022 Chronic Residual codes; unclassified (1 source) Restlessness and agitation; Translations: [Restlessness and agitation] Onset: 07-21-2023 Chronic Residual codes; unclassified (2 sources) Other amnesia; Translations: [Other amnesia] Onset: 01-25-2023 Episodic Residual codes; unclassified (1 source) Pain, unspecified; Translations: [Pain, unspecified] Onset: 05-11-2024 Episodic Spondylosis; intervertebral disc disorders; other back problems (20 sources) Cervical arthritis; Translations: [Spondylosis without myelopathy or radiculopathy, cervical region] Onset: 01-01-2022 Chronic Syncope (6 sources) Near syncope; Translations: [Syncope and collapse] Onset: 06-16-2023 06-16-2023 Episodic Unclassified (1 source) Unspecified dementia, severe, with agitation; Translations: [Unspecified dementia, severe, with agitation] Onset: 07-18-2023 Unclassified (1 source) Traumatic subdural hemorrhage with loss of consciousness status unknown, initial encounter; Translations: [Traumatic subdural hemorrhage with loss of consciousness status unknown, initial encounter] Onset: 05-11-2024 Unclassified (1 source) Susie Boyce - Fall, SDH. (DNR-CC) - Onset: 05-11-2024 Past or Other Problems Problem Classification Problem Date Documented Da te Episodic/Chronic Allergic reactions (1 source) Allergy status to penicillin; Translations: [Allergy status to penicillin] Onset: 05-11-2024 Episodic Diabetes mellitus without complication (20 sources) Type 2 diabetes mellitus without complication; Translations: [Type 2 diabetes mellitus without complications] Onset: 12-17-2014 Resolved: 08-05-2023 Chronic E Codes: Adverse effects of medical drugs (19 sources) Adverse reaction to drug; Translations: [Adverse effect of unspecified drugs, medicaments and biological substances, initial encounter] Onset: 04-17-2023 04-17-2023 Episodic E Codes: Fall (7 sources) Fall; Translations: [Unspecified fall, initial encounter] Onset: 05-11-2024 05-11-2024 Episodic Gastrointestinal hemorrhage (19 sources) Melena; Translations: [Melena] Onset: 04-16-2023 04-18-2023 Episodic Mood disorders (5 sources) Mood disorders Onset: 05-11-2024 05-11-2024 Nutritional deficiencies (20 sources) Cobalamin deficiency; Translations: [Deficiency of other specified B group vitamins] Onset: 10-30-2021 10-30-2021 Episodic Open wounds of head; neck; and trunk (10 sources) Scalp laceration; Translations: [Laceration without foreign body of scalp, subsequent encounter] Onset: 02-24-2024 02-24-2024 Episodic Other aftercare (1 source) nursing home (current) use of insulin; 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] Onset: 12-17-2014 Episodic Other circulatory disease (18 sources) Low blood pressure; Translations: [Hypotension, unspecified] Onset: 09-09-2023 09-09-2023 Episodic Other gastrointestinal disorders (19 sources) Loose stool; Translations: [Other fecal abnormalities] Onset: 04-17-2023 04-17-2023 Episodic Other nervous system disorders (20 sources) Abnormal gait; Translations: [Unspecified abnormalities of gait and mobility] Onset: 01-14-2022 Episodic Other nervous system disorders (20 sources) Impaired cognition; Translations: [Other symptoms and [...] conditions (not mental disorders or infectious disease) (17 sources) Other specified abnormal findings of blood chemistry; Translations: [Other abnormal blood chemistry] Onset: 09-14-2023 09-14-2023 Episodic Other skin disorders (20 sources) Keratoacanthoma; Translations: [Other specified epidermal thickening] Onset: 11-29-2019 11-29-2019 Episodic Superficial injury; contusion (2 sources) Contusion of lower back and pelvis, initial encounter; Translations: [Contusion of buttock] 09-02-2023 Episodic Unclassified (2 sources) Onset: 09-08-2022 09-08-2022 Urinary tract infections (19 sources) Urinary tract infectious disease; Translations: [Urinary tract infection, site not specified] Onset: 04-16-2023 Resolved: 08-05-2023 08-05-2023 Episodic Viral infection (1 source) Disease caused by 2019-nCoV; Translations: [COVID-19] 11-04-2023 Episodic Results Test Name Value Interpretation Reference Range Facility C Urineon 08-08-2024 Bacteria identified Cx Nom (U) Microbiology PROCEDURE: Urine Culture [R1] SOURCE: U Random BODY SITE: COLLECTED DATE/TIME: 08/06/2024 13:46 EDT RECEIVED DATE/TIME: 08/06/2024 17:22 EDT START DATE/TIME: 08/06/2024 17:22 EDT FREE TEXT SOURCE: TA REYES, Tariq CHAPPELL MD, Tariq Siddiqi FINAL REPORTS Final Report [] Verified Date/Time: 08/08/2024 10:35 EDT >100,000 cfu/ml Escherichia coli SUSCEPTIBILITY RESULTS LEGEND: S=Susceptible, N/R=Not Reported, Blank=Data not available, or drug not advisable or tested, I=Intermediate, ESBL=Extended spectrum beta-lactamase, R=Resistant, TFG=Thymidine-depende nt strain, PEPE=Beta-lactamase positive, DENISE=mcg/m;(mg/L), S*=Predicted susceptible interp, R*=Predicted resistant interp EC Antibiotic DENISE Dilutn DENISE Interp Ampicillin <=8 S Ampicillin/ <=8/4 S Sulbactam Cefazolin <=2 S Cefepime <=2 S Ceftazidime/ <=8 S Avibactam Ceftriaxone <=1 S Cefuroxime <=4 S Ciprofloxacin <=0.25 S Ertapenem <=0.5 S Gentamicin <=2 S Levofloxacin <=0.5 S Meropenem <=1 S Nitrofurantoin <=32 S Piperacillin/ <=8 S Tazobactam Tetracycline <=4 S Tobramycin <=2 S Trimethoprim/ <=2/38 S Sulfa Performing Locations R1: This test was performed at: [facility], [address] [place] [address], [facility]- , , [facility] Comment on above: Performed By: #### [id number] #### [facility] [address] [place] [address] Ambulatory Visit Summaryon 0 08-06-2024 Ambulatory Visit Summary Ambulatory Visit Summary SUSIE BOYCE :1950 Visit Date:08/06/2024 Ambulatory Visit Instructions Your Diagnosis Hydrocele Epididymitis Atrophic testicle Your Care Team Attending Physician - TA REYES, Tariq Siddiqi Primary Care Physician - JAVAD RODRIGUEZ DO This Is Your Medications List Contact prescribing physician if questions or concerns acetaminophen atorvastatin (atorvastatin 40 mg Tab) carbidopa-levodopa (carbidopa-levodopa 25 mg-250 mg Tab) cyanocobalamin (Vitamin B12) donepezil (donepezil 10 mg Tab) fluoxetine (FLUoxetine 20 mg Cap) fluoxetine (FLUoxetine 40 mg Cap) insulin lispro (Insulin Lispro KwikPen 100 units/mL injectable solution) memantine (memantine 5 mg Tab) midodrine (midodrine 10 mg oral tablet) omeprazole (omeprazole 20 mg Cap-DR) saxagliptin (saxagliptin 5 mg oral tablet) tolterodine (tolterodine 2 mg Tab) Procedures Performed Arthroplasty of knee, History of repair of inguinal hernia, Tracheotomy. Discharge Vitals Temperature (Temporal Artery) 37 ???C Heart Rate (Peripheral) 60 Respiratory Rate 17 Blood Pressure 118/66 Height 175 cm Height 69 in Weight 80 kg Weight 176.37 lb BMI 26.12 What to do next You Need to Schedule the Following Appointments Follow Up with TA REYES, ALFREDITO Barnard When: Where: [facility] [address], [place] [address]- Medications What How Much When Instructions Unchanged acetaminophen Contact prescribing physician if questions or concerns Unchanged atorvastatin (atorvastatin 40 mg Tab) Contact prescribing physician if questions or concerns Unchanged carbidopa-levodopa (carbidopa-levodopa 25 mg-250 mg Tab) 1 Tablets Contact prescribing physician if questions or concerns Unchanged cyanocobalamin (Vitamin B12) Contact prescribing physician if questions or concerns Unchanged donepezil (donepezil 10 mg Tab) 1 Tablets Contact prescribing physician if questions or concerns Unchanged fluoxetine (FLUoxetine 20 mg Cap) 1 Capsules Contact prescribing physician if questions or concerns Unchanged fluoxetine (FLUoxetine 40 mg Cap) 1 Capsules Contact prescribing physician if questions or concerns Unchanged insulin lispro (Insulin Lispro KwikPen 100 units/ mL injectable solution) 1 Units Contact prescribing physician if questions or concerns Unchanged memantine (memantine 5 mg Tab) 1 Tablets Contact prescribing physician if questions or concerns Unchanged midodrine (midodrine 10 mg oral tablet) Contact prescribing physician if questions or concerns Unchanged omeprazole (omeprazole 20 mg Cap-DR) By Mouth Every day Contact prescribing physician if questions or concerns Unchanged saxagliptin (saxagliptin 5 mg oral tablet) 1 Tablets Contact prescribing physician if questions or concerns Unchanged tolterodine (tolterodine 2 mg Tab) 1 Tablets Contact prescribing physician if questions or concerns Allergies penicillin (Unknown) Problems Ongoing - Any problem that you are currently receiving treatment for. At risk for falls Atrophic testicle Dementia Epididymitis Hydrocele Patient Survey You may receive a survey via text or e-mail asking about your office visit. Please share your experience with us by completing your survey. We appreciate your feedback and thank you for choosing us for your care. Education Materials Hydrocele, Adult A hydrocele is a collection of fluid in the loose pouch of skin that holds the testicles (scrotum). It can occur in one or both testicles. [...] from the abdomen can fill the scrotum. This is not very common in adults. What are [...] the hydrocele, the more likely you are (more content not included)... Normal [facility] Urology Office/Clinic Noteon 08-06-2024 Urology Office/Clinic Note Urology Office/Clinic Note Chief Complaint hydrocele HPI Staff New pt for bilateral hydroceles. Pt resides at [facility]. History of Present Illness Tests reviewed: UA I have reviewed the previous health record information and history for this patient. I have reviewed and verified the staff HPI to be accurate for this encounter. Review of Systems ROS - Provider Constitutional: denies weight loss, denies hot flashes. Eyes: denies eye problems. Gastrointestinal: denies nausea, denies vomiting. Cardiovascular: denies chest pain or angina. Integumentary: no dryness Musculoskeletal: denies musculoskeletal symptoms. ENMT: denies otolaryngeal symptoms. Respiratory: no shortness of breath. Heme/Lymph: denies easy bleeding tendency, denies easy bruising tendency. Psychiatric: no confusion, no anxiety. Genitourinary: See HPI. Physical Exam Vitals & Measurements T: 37 ???C(Temporal Artery) HR: 60(Peripheral) RR: 17 BP: 118/66 HT: 69 in HT: 175 cm WT: 80 kg WT: 176.37 lb BMI: 26.12 General Appearance: alert, no distress, well nourished, well developed male. : minimal hydrocele on R. No L sided hydrocele. Incision on the R but patient reports he has only had hydrocele on the L. L epididymis is hard and enlarged on the L, testicle has atrophied quite a bit. Assessment/Plan Susie is a 74 yo M new pt here d/t bilateral hydroceles. Pt accompanied by a prn aide today, does not know patients history. PMH: dementia. Pt resides at [facility]. 1. Hydrocele (N43.3: Hydrocele, unspecified) Had BL hernia surgery. Also had hydrocele surgery by [facility] doctor in [place]. Had hydrocelectomy on the L twice. Pt reports L sided hydrocele was packed. Testicular pain with palpation. Will tx with abx and also order scrotal US PE: minimal hydrocele on R. No L sided hydrocele. Incision on the R but patient reports he has only had hydrocele on the L. L epididymis is hard and enlarged on the L, testicle has atrophied quite a bit. Follow up pending below or sooner if needed. Pt understands and agrees with plan. -Schedule scrotal US 2. Epididymitis (N45.1: Epididymitis) See #1. UA shows moderate blood and moderate leuks. -Start Doxycycline 100 mg bid x 4 wks with 1 refill. SEs discussed. Order written for facility. 3. 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 Follow-up With When Contact Information TA REYES, Tariq Siddiqi, URL [facility] [address], [place] [address]- Additional Instructions: f/u pending scrotal US Patient Education Epididymitis Hydrocele, Adult I, Christy Byrd, personally scribed for Dr. Chappell on 08/06/2024 13:11:50. . Documentation recorded by the scribe, Christy Byrd, accurately reflects the services(s) I performed and decisions made by me. Authenticated by Dr. Chappell on 08/06/2024 13:14:09. Problem List/Past Medical History Ongoing At risk for falls Atrophic testicle Dementia Epididymitis Hydrocele Historical No qualifying data Procedure/Surgical History Arthroplasty of knee, History of repair of inguinal hernia, Tracheotomy. Medications acetaminophen atorvastatin 40 mg Tab carbidopa-levodopa 25 mg-250 mg Tab, 1 tab(s) donepezil 10 mg Tab, 10 mg= 1 tab(s) FLUoxetine 20 mg Cap, 20 mg= 1 cap(s) FLUoxetine 40 mg Cap, 40 mg= 1 cap(s) Insulin Lispro KwikPen 100 units/mL injectable solution, 1 unit(s) memantine 5 mg Tab, 5 mg= 1 tab(s) midodrine 10 mg oral tablet omeprazole 20 mg Cap-DR, Oral, Daily saxagliptin 5 mg oral tablet, 5 mg= 1 tab(s) tolterodine 2 mg Tab, 2 mg= 1 tab(s) Vitamin B12 Allergies penicillin (Unknown) Social History Alcohol Never., 08/06/2024 Substance Abuse Never., 08/06/2024 Tobacco Never (less than 100 in lifetime), Former smoker, quit more than 30 days ago Tobacco Use:. Never Smokeless Tobacco Use:. Cigarettes, Yes, 08/06/2024 Family History Alzheimer's disease: Mother. Lab Results Ambulatory Point of Care Results Bilirubin Urine Dipstick: Negative (08/06/24 12:47:00) Blood Urine Dipstick: 2+ Moderate (08/06/24 12:47:00) Glucose Urine Dipstick: Negative (08/06/24 12:47:00) Ketones Urine Dipstick: Negative (08/06/24 12:47:00) Leukocytes Urine Dipstick: 2+ Moderate (08/06/24 12:47:00) Nitrite Urine Dipstick: Negative (08/06/24 12:47:00) Protein Urine Dipstick: 1+ (30 mg/dl) (08/06/24 12:47:00) Urine Appearance Urine Dipstick: Slightly cloudy (08/06/24 12:47:00) Urine Color Urine Dipstick: Yellow (08/06/24 12:47:00) Urobilinogen Urine Dipstick: Normal 0.2-1 EU/dl (08/06/24 12:47:00) pH Urine Dipstick: 7.5 (08/06/24 12:47:00) Normal [facility] Comment on above: Result Comment: Elec tronically Signed By: TA REYES, Tariq Siddiqi\.br\Date and Time Signed: 08/06/24 13:14 EDT\.br\Electronically Co-Signed By: Christy Byrd\.br\Date and Time Co-Signed: 08/06/24 13:12 EDT BASIC METABOLIC PANLon 05-11 Anion gap [Moles/Vol] 8 mmol/L Normal 5-15 [facility] Comment on above: Performed By: #### C DARREN NICOLAS, 2131-10 #### [facility] ([id number]) [address], [address] [place] [address] Calcium [Mass/Vol] 9.1 mg/dL Normal 8.5-10.5 [facility] Comment on above: Performed By: #### C DARREN NICOLAS, 2131-10 #### [facility] ([id number]) [address], [address] [place] [address] Chloride [Moles/Vol] 106 mmol/L Normal 98-109 [facility] Comment on above: Performed By: #### DARREN Springer BCA, 2131-10 #### [facility] ([id number]) [address], [address] [place] [address] CO2 [Moles/Vol] 29 mmol/L Normal 22-32 [facility] Comment on above: Performed By: #### C DARREN NICOLAS, 2131-10 #### [facility] ([id number]) [address] [address] [place] [address] Creatinine [Mass/Vol] 0.77 mg/dL Normal 0.60-1.30 [facility] Comment on above: Result Comment: METH OD TRACEABLE TO IDMS STANDARD Performed By: #### C MARIA ISABEL [facility], 2131-10 #### [facility] ([id number]) [address], [address] [address] eGFR (CKD-EPI) NON-RACE DEPENDENT >90 Normal >59 [facility] Comment on above: Result Comment: Reported eGFR is based on the CKD-EPI 2020 equation that does not use a race coefficient. Performed By: #### C [facility], 2131-10 #### [facility] ([id number]) [address] [address] Glucose [Mass/Vol] 130 mg/dL High 65-99 [facility] Comment on above: Performed By: #### C [facility], 2131-10 #### [facility] ([id number]) [address] [address] Potassium [Moles/Vol] 3.6 mmol/L Normal 3.5-5.0 [facility] Comment on above: Performed By: #### C [facility], 2131-10 #### [facility] ([id number]) [address] [address] [place] [address] Sodium [Moles/Vol] 143 mmol/L Normal 134-146 [facility] Comment on above: Performed By: #### C [facility], 2131-10 #### [facility] ([id number]) [address] [address] Urea nitrogen [Mass/Vol] 16 mg/dL Normal 5-27 [facility] Comment on above: Performed By: #### C DARREN NICOLAS, 2131-10 #### [facility] ([id number]) [address], [address] [place] [address] CBC AND AUTO DIFFon 05-12-19 25 ABSOLUTE BASOPHIL 0.1 X10E9/L Normal 0.0-0.2 [facility] Comment on above: Performed By: #### DARREN Springer BCA, 2131-10 #### [facility] ([id number]) [address], [address] [place] [address] ABSOLUTE NEUTROPHIL 7.3 X10E9/L High 1.5-6.6 [facility] Comment on above: Performed By: #### DARREN Springer BCA, 2131-10 #### [facility] ([id number]) [address], [address] [place] [address] Basophils/100 WBC (Bld) 0.8 % Normal [facility] Comment on above: Performed By: #### DARREN Springer BCA, 2131-10 #### [facility] ([id number]) [address], [address] [place] [address] Eosinophils (Bld) [#/Vol] 0.2 10*3/uL Normal 0.0-0.4 [facility] Comment on above: Performed By: #### DARREN Springer BCA, 2131-10 #### [facility] ([id number]) [address], [address] [place] [address] Eosinophils/100 WBC (Bld) 1.6 % Normal [facility] Comment on above: Performed By: #### DARREN Springer BCA, 2131-10 #### [facility] ([id number]) [address], [address] [place] [address] Erythrocyte distribution width (RBC) [Ratio] 13.0 % Normal 11.5-15.0 [facility] Comment on above: Performed By: #### DARREN Springer BCA, 2131-10 #### [facility] ([id number]) [address], [address] [place] [address] Hematocrit (Bld) [Volume fraction] 44.4 % Normal 39-49 [facility] Comment on above: Performed By: #### Racheal NICOLAS BMP, 2131-10 #### [facility] ([id number]) [address], [facility] [address] [place] [address] Hemoglobin (Bld) [Mass/Vol] 15.1 g/dL Normal 13.0-17.0 [facility] Comment on above: Performed By: #### Racheal NICOLAS BMP, 2131-10 #### [facility] ([id number]) [address], [facility] [address] [place] [address] Lymphocytes (Bld) [#/Vol] 1.5 10*3/uL Normal 1.0-3.5 [facility] Comment on above: Performed By: #### Racheal NICOLAS [facility], 2131-10 #### [facility] ([id number]) [address], [facility] [address] [place] [address] Lymphocytes/100 WBC (Bld) 15.7 % Normal [facility] Comment on above: Performed By: #### Racheal NICOLAS [facility], 2131-10 #### [facility] ([id number]) [address], [facility] [address] [place] [address] MCH (RBC) [Entitic mass] 30.9 pg Normal 27-34 [facility] Comment on above: Performed By: #### Racheal NICOLAS BMP, 2131-10 #### [facility] ([id number]) [address], [facility] [address] [place] [address] MCHC (RBC) [Mass/Vol] 34.0 g/dL Normal 32-36 [facility] Comment on above: Performed By: #### Racheal NICOLAS BMP, 2131-10 #### [facility] ([id number]) [address], [address] [place] [address] MCV (RBC) [Entitic vol] 91 fL Normal 80-100 [facility] Comment on above: Performed By: #### DARREN Springer BCA, 2131-10 #### [facility] ([id number]) [address], [address] [place] [address] Monocytes (Bld) [#/Vol] 0.8 10*3/uL Normal 0-0.9 [facility] Comment on above: Performed By: #### DARREN Springer BCA, 2131-10 #### [facility] ([id number]) [address], [address] [place] [address] Monocytes/100 WBC (Bld) 8.3 % Normal [facility] Comment on above: Performed By: #### DARREN Springer BCA, 2131-10 #### [facility] ([id number]) [address], [address] [place] [address] Neutrophils/100 WBC (Bld) 73.6 % Normal [facility] Comment on above: Performed By: #### DARREN Springer BCA, 2131-10 #### [facility] ([id number]) [address], [address] [place] [address] Platelet mean volume (Bld) [Entitic vol] 7.2 fL Normal 7-12 [facility] Comment on above: Performed By: #### DARREN Springer BCA, 2131-10 #### [facility] ([id number]) [address], [address] [place] [address] Platelets (Bld) [#/Vol] 311 10*3/uL Normal 150-450 [facility] Comment on above: Performed By: #### DARREN Springer BCA, 2131-10 #### [facility] ([id number]) [address], [address] [place] [address] RBC COUNT 4.89 X10E12/L Normal 4.10-5.70 [facility] Comment on above: Performed By: #### C DARREN NICOLAS, 2131-10 #### [facility] ([id number]) [address], [address] [place] [address] WBC (Bld) [#/Vol] 9.9 10*3/uL Normal 4.0-11.0 [facility] Comment on above: Performed By: #### C DARREN NICOLAS, 2131-10 #### [facility] ([id number]) [address] [place] [address] CT BRAIN WO CONT[address] CT BRAIN WO CONT CT BRAIN WO CONT History: Subdural hematoma Exam/Technique: CT images of the brain were obtained without IV contrast. CT does automated exposure control was utilized. All CT scans at this facility use dose modulation, iterative reconstruction, and/or weight based dosing when appropriate to reduce radiation dose to as low as reasonably achievable. Comparison: Head CT at 1:13 AM Findings: The right side subdural hematoma primarily at the posterior aspect of the right frontal lobe and right parietal convexity is essentially stable with maximum thickness of 8mm. There is no gross new intracranial hemorrhage. ventricular system and cortical sulci are otherwise appropriate for patient's age group. There is no midline shift or transtentorial herniation. There is no gross acute osseous injury. There are multiple opacified ethmoid air cells and 25% diffuse mucosal wall thickening of the left maxillary sinus.. IMPRESSION: Grossly stable right subdural hematoma with maximum thickness of 8mm. Finalized by Angel Scott MD on 05/11/2024 1:20 PM Normal [facility] Glucose Glucometer (BldC) [M ass/Vol]on 05-11-2024 Glucose [Mass/Vol] 127 mg/dL High 65-99 [facility] VITAMIN B12on 05-11-2024 Cobalamin (Vitamin B12) [Mass/Vol] 685 pg/mL Normal 180-914 [facility] Comment on above: Performed By: #### C DARREN NICOLAS, 2131-10 #### [facility] ([id number]) [address] [facility], [address] [place] [address] Glucose,Whole Bloodon 2023 Glucose [Mass/Vol] 169 mg/dL High 75-110 [facility] Glucose [Mass/Vol] 129 mg/dL High 75-110 [facility] Glucose [Mass/Vol] 149 mg/dL High 75-110 [facility] Glucose,Whole Bloodon 2023 Glucose [Mass/Vol] 210 mg/dL High 75-110 [facility] Glucose [Mass/Vol] 169 mg/dL High 75-110 [facility] Glucose [Mass/Vol] 120 mg/dL High 75-110 [facility] Glucose [Mass/Vol] 139 mg/dL High 75-110 [facility] Glucose,Whole Bloodon 2023 Glucose [Mass/Vol] 222 mg/dL High 75-110 [facility] Glucose [Mass/Vol] 172 mg/dL High 75-110 [facility] Glucose [Mass/Vol] 165 mg/dL High 75-110 [facility] Glucose [Mass/Vol] 178 mg/dL High 75-110 [facility] Glucose,Whole Bloodon 2023 Glucose [Mass/Vol] 249 mg/dL High 75-110 [facility] Glucose [Mass/Vol] 96 mg/dL Normal 75-110 [facility] Glucose [Mass/Vol] 57 mg/dL Low 75-110 [facility] Comment on above: Result Comment: [employer] Noted Glucose,Whole Bloodon 2023 Glucose [Mass/Vol] 121 mg/dL High 75-110 [facility] Glucose [Mass/Vol] 70 mg/dL Low 75-110 [facility] Glucose [Mass/Vol] 73 mg/dL Low 75-110 [facility] Glucose [Mass/Vol] 57 mg/dL Low 75-110 [facility] Glucose [Mass/Vol] 71 mg/dL Low 75-110 [facility] Glucose,Whole Bloodon 2023 Glucose [Mass/Vol] 77 mg/dL Normal 75-110 [facility] Glucose [Mass/Vol] 95 mg/dL Normal 75-110 [facility] Glucose [Mass/Vol] 110 mg/dL Normal 75-110 [facility] Glucose [Mass/Vol] 123 mg/dL High 75-110 [facility] Glucose,Whole Bloodon 2023 Glucose [Mass/Vol] 224 mg/dL High 75-110 [facility] Glucose [Mass/Vol] 148 mg/dL High 75-110 [facility] Glucose [Mass/Vol] 184 mg/dL High 75-110 [facility] Glucose,Whole Bloodon 2023 Glucose [Mass/Vol] 129 mg/dL High 75-110 [facility] Glucose [Mass/Vol] 141 mg/dL High 75-110 [facility] Glucose [Mass/Vol] 87 mg/dL Normal 75-110 [facility] Glucose [Mass/Vol] 103 mg/dL Normal 75-110 [facility] Glucose,Whole Bloodon 2023 Glucose [Mass/Vol] 139 mg/dL High 75-110 [facility] Glucose [Mass/Vol] 184 mg/dL High 75-110 [facility] Glucose [Mass/Vol] 70 mg/dL Low 75-110 [facility] Glucose,Whole Bloodon 2023 Glucose [Mass/Vol] 181 mg/dL High 75-110 [facility] Glucose [Mass/Vol] 126 mg/dL High 75-110 [facility] Glucose [Mass/Vol] 132 mg/dL High 75-110 [facility] Glucose [Mass/Vol] 156 mg/dL High 75-110 [facility] Glucose,Whole Bloodon 2023 Glucose [Mass/Vol] 213 mg/dL High 75-110 [facility] Glucose [Mass/Vol] 143 mg/dL High 75-110 [facility] Glucose [Mass/Vol] 118 mg/dL High 75-110 [facility] Glucose [Mass/Vol] 78 mg/dL Normal 75-110 [facility] Glucose,Whole Bloodon 2023 Glucose [Mass/Vol] 208 mg/dL High 75-110 [facility] Glucose [Mass/Vol] 168 mg/dL High 75-110 [facility] Glucose [Mass/Vol] 92 mg/dL Normal 75-110 [facility] Glucose [Mass/Vol] 135 mg/dL High 75-110 [facility] Glucose,Whole Bloodon 2023 Glucose [Mass/Vol] 171 mg/dL High 75-110 [facility] Glucose [Mass/Vol] 132 mg/dL High 75-110 [facility] Glucose [Mass/Vol] 166 mg/dL High 75-110 [facility] Glucose [Mass/Vol] 191 mg/dL High 75-110 [facility] Glucose,Whole Bloodon 2023 Glucose [Mass/Vol] 156 mg/dL High 75-110 [facility] Glucose [Mass/Vol] 155 mg/dL High 75-110 [facility] Glucose [Mass/Vol] 143 mg/dL High 75-110 [facility] Glucose [Mass/Vol] 145 mg/dL High 75-110 [facility] Glucose,Whole Bloodon 2023 Glucose [Mass/Vol] 183 mg/dL High 75-110 [facility] Glucose [Mass/Vol] 116 mg/dL High 75-110 [facility] Glucose [Mass/Vol] 84 mg/dL Normal 75-110 [facility] Glucose [Mass/Vol] 99 mg/dL Normal 75-110 [facility] Glucose,Whole Bloodon 2023 Glucose [Mass/Vol] 113 mg/dL High 75-110 [facility] Glucose [Mass/Vol] 106 mg/dL Normal 75-110 [facility] Glucose [Mass/Vol] 103 mg/dL Normal 75-110 [facility] Glucose [Mass/Vol] 153 mg/dL High 75-110 [facility] B12/Folate Panelon Cobalamin (Vitamin B12) [Mass/Vol] 461 pg/mL Normal 232-1245 [facility] Comment on above: Performed By: #### B 12FOL ####[address] [address] lab Director: Norberto Condon MD Folic Acid 12.2 ng/mL Normal 4.8-24.2 [facility] Comment on above: Performed By: #### B 12FOL ####[address] [place] [address] lab Director: Norberto Condon MD Glucose,Whole Bloodon 2023 Glucose [Mass/Vol] 207 mg/dL High 75-110 [facility] Glucose [Mass/Vol] 180 mg/dL High 75-110 [facility] Glucose [Mass/Vol] 213 mg/dL High 75-110 [facility] Glucose [Mass/Vol] 138 mg/dL High -110 [facility] CBC with Diffon 07-18-2023 Abs. Basophil 0.00 k/uL Normal 0.0-0.2 [facility] Comment on above: Performed By: #### C DP, MG, CP, ALCB ####[facility] [id number] [place], [place] [address])[phone] Director: Reji Son DO Abs.Neutrophil (Seg) 7.60 k/uL Normal 1.3-9.1 [facility] Comment on above: Performed By: #### C DP, MG, CP, ALCB ####[facility] [id number] [place] [address] Lab Director: Reji Son DO Basophils/100 WBC (Bld) 1 % Normal 0-2 [facility] Comment on above: Performed By: #### C DP, MG, CP, ALCB ####[facility] [address] [place], [place] [address])[phone] Director: Reji Son DO Eosinophils (Bld) [#/Vol] 0.10 10*3/uL Normal 0.0-0.4 [facility] Comment on above: Performed By: #### C DP, MG, CP, ALCB ####[facility] [id number] [place] [address] Lab Director: Reji Son DO Eosinophils/100 WBC (Bld) 2 % Normal 0-4 [facility] Comment on above: Performed By: #### C DP, MG, CP, ALCB ####[facility] [address] [place] [address] Lab Director: Reji Son DO Erythrocyte distribution width (RBC) [Ratio] 13.9 % Normal 11.5-14.9 [facility] Comment on above: Performed By: #### C DP, MG, CP, ALCB ####[facility] [id number], [place] [address]19)[phone] Director: Reji Son DO Hematocrit (Bld) [Volume fraction] 42.8 % Normal 41-53 [facility] Comment on above: Performed By: #### C DP, MG, CP, ALCB ####[facility] [id number] [place] [address] Lab Director: Reji Son DO Hemoglobin (Bld) [Mass/Vol] 14.4 g/dL Normal 13.5-17.5 [facility] Comment on above: Performed By: #### C DP, MG, CP, ALCB ####[facility] [id number] [place] [address] Lab Director: Reji Son DO Lymphocytes (Bld) [#/Vol] 1.20 10*3/uL Normal 1.0-4.8 [facility] Comment on above: Performed By: #### C DP, MG, CP, ALCB ####[facility] [id number] [place] [address] Lab Director: Reji Son DO Lymphocytes/100 WBC (Bld) 12 % Low 24-44 [facility] Comment on above: Performed By: #### C DP, MG, CP, ALCB ####[facility] [id number], [place] [phone] Director: Reji Son DO MCH (RBC) [Entitic mass] 30.3 pg Normal 26-34 [facility] Comment on above: Performed By: #### C DP, MG, CP, ALCB ####[facility] [id number], [place] [phone] Director: Reji Son DO MCHC (RBC) [Mass/Vol] 33.7 g/dL Normal 31-37 [facility] Comment on above: Performed By: #### C DP, MG, CP, ALCB ####[facility] [id number] [place] [address].[place] [address] Lab Director: Reji Son DO MCV (RBC) [Entitic vol] 89.9 fL Normal 80-100 [facility] Comment on above: Performed By: #### C DP, MG, CP, ALCB ####[facility] [facility] [address] [facility] [place], [place] [address])[phone] Director: Reji Son DO Monocytes (Bld) [#/Vol] 0.80 10*3/uL Normal 0.1-1.3 [facility] Comment on above: Performed By: #### C DP, MG, CP, ALCB ####[facility] Wib[address] [facility] [place] [address] lab Director: Reji Son DO Monocytes/100 WBC (Bld) 8 % High 1-7 [facility] Comment on above: Performed By: #### C DP, MG, CP, ALCB ####[facility] Uka[address] [facility] [place] [address] Lab Director: Reji Son DO Neutrophil (Seg) 77 % High 36-66 [facility] Comment on above: Performed By: #### C DP, MG, CP, ALCB ####[facility] [address] [place] [address] Lab Director: Reji Son DO Platelet mean volume (Bld) [Entitic vol] 7.1 fL Normal 6.0-12.0 [facility] Comment on above: Performed By: #### C DP, MG, CP, ALCB ####[facility] [address], [place] [phone] Director: Reji Son DO Platelets (Bld) [#/Vol] 329 10*3/uL Normal 150-450 [facility] Comment on above: Performed By: #### C DP, MG, CP, ALCB ####[facility] [address], [place] [phone] Director: Reji Son DO RBC (Bld) [#/Vol] 4.77 10*6/uL Normal 4.5-5.9 [facility] Comment on above: Performed By: #### C DP, MG, CP, ALCB ####[facility] [address], [place] [phone] Director: Reji Son DO WBC (Bld) [#/Vol] 9.8 10*3/uL Normal 3.5-11.0 [facility] Comment on above: Performed By: #### C DP, MG, CP, ALCB ####[facility] [address] [facility], [place] [phone] Director: Reji Son DO Comp Metabolic Profon 2023 ALT [Catalytic activity/Vol] U/L Low 5-41 [facility] Comment on above: Performed By: #### C DP, MG, CP, ALCB ####[facility] [address] [place] [address] lab Director: Reji Son DO Albumin [Mass/Vol] 4.0 g/dL Normal 3.5-5.2 [facility] Comment on above: Performed By: #### C DP, MG, CP, ALCB ####[facility] [address] [place] [address] Lab Director: Reji Son DO Alkaline Phos 93 U/L Normal 40-129 [facility] Comment on above: Performed By: #### C DP, MG, CP, ALCB ####[facility] [address] [facility] [place] [address] lab Director: Reji Son DO Anion gap [Moles/Vol] 12 mmol/L Normal 9-17 [facility] Comment on above: Performed By: #### C DP, MG, CP, ALCB ####[facility] Xxe[address] [facility] [place] [address] lab Director: Reji Son DO AST [Catalytic activity/Vol] 16 U/L Normal <40 [facility] Comment on above: Performed By: #### C DP, MG, CP, ALCB ####[facility] F[address] [facility] [place] [address] Lab Director: Reji Son DO Bilirubin [Mass/Vol] 0.8 mg/dL Normal 0.3-1.2 [facility] Comment on above: Performed By: #### C DP, MG, CP, ALCB ####[facility] [address] [place] [address] lab Director: Reji Son DO Calcium [Mass/Vol] 9.2 mg/dL Normal 8.6-10.4 [facility] Comment on above: Performed By: #### C DP, MG, CP, ALCB ####[facility] [address] [place] [address] Lab Director: Reji Son DO Chloride [Moles/Vol] 104 mmol/L Normal 98-107 [facility] Comment on above: Performed By: #### C DP, MG, CP, ALCB ####[facility] [address] [place] [address] Lab Director: Reji Son DO CO2 [Moles/Vol] 21 mmol/L Normal 20-31 [facility] Comment on above: Performed By: #### C DP, MG, CP, ALCB ####[facility] I[address] [facility] [place] [address] Lab Director: Reji Son DO Creatinine [Mass/Vol] 0.7 mg/dL Normal 0.7-1.2 [facility] Comment on above: Performed By: #### C DP, MG, CP, ALCB ####[facility] Cxx[address] [facility] [place] [address] Lab Director: Reji Son DO GFR/1.73 sq M.predicted among non-blacks MDRD (S/P/Bld) [Vol rate/Area] mL/min/{1.73_m2} Normal >60 [facility] Comment on above: Result Comment: [...] By: #### C DP, MG, CP, ALCB ####[facility] [address] [place] [address] Lab Director: Reji Son DO Glucose [Mass/Vol] 161 mg/dL High 70-99 [facility] Comment on above: Performed By: #### C DP, MG, CP, ALCB ####[facility] [address] [place] [address] Lab Director: Reji Son DO Potassium [Moles/Vol] 4.0 mmol/L Normal 3.7-5.3 [facility] Comment on above: Performed By: #### C DP, MG, CP, ALCB ####[facility] Oen[address] [facility] [place] [address] lab Director: Reji Son DO Protein [Mass/Vol] 6.5 g/dL Normal 6.4-8.3 [facility] Comment on above: Performed By: #### C DP, MG, CP, ALCB ####[address] [place] [address] Lab Director: Reji Son DO Sodium [Moles/Vol] 137 mmol/L Normal 135-144 [facility] Comment on above: Performed By: #### C DP, MG, CP, ALCB ####[address] [address] Lab Director: Reji Son DO Urea nitrogen [Mass/Vol] 16 mg/dL Normal 8-23 [facility] Comment on above: Performed By: #### C DP, MG, CP, ALCB ####[facility] [address] [place] [address] Lab Director: Reji Son DO Drug Scr, Abuse, Uron 2023 Amphetamine(s),Ur Negative Normal NEG [facility] Comment on above: Result Comment: (Positive cutoff 1000 ng/mL) Performed By: #### U AX, JABIER ####[facility] [address] [place] [address] Lab Director: Reji Son DO Barbiturate(s),Ur Negative Normal NEG [facility] Comment on above: Result Comment: (Positive cutoff 200 ng/mL) Performed By: #### U AX, JABIER ####[facility] [address] [place], [place] [phone] Director: Reji Son DO Benzodiazepine(s) Negative Normal NEG [facility] Comment on above: Result Comment: (Positive cutoff 200 ng/mL) Performed By: #### U AX, JABIER ####[address] [phone] Director: Reji Son DO Cannabinoid(s),Ur Negative Normal NEG [facility] Comment on above: Result Comment: (Positive cutoff 50 ng/mL) Performed By: #### U AX, JABIER ####[facility] [address] [place] [address] [phone] Director: Reji Son DO Cocaine Metabolite Negative [place] NEG [facility] Comment on above: Result Comment: (Positive cutoff 300 ng/mL) Performed By: #### U AX, JABIER ####[facility] [address] [place] [address] Lab Director: Reji Son DO Fentanyl, Urine Negative Normal NEG [facility] Comment on above: Result Comment: (Positive cutoff 5 ng/ml) Performed By: #### U AX, JABIER ####[facility] [address] [place] [address] [phone] Director: Reji Son DO Interpretive Info Assay provides medical screening only. The absence of expected drug(s) and/or Normal [facility] Comment on above: Result Comment: meta bolite(s) may indicate diluted or adulterated urine, limitations of testing or timing of collection. Testing for legal purposes should be confirmed by another method. To request confirmation of test result, please call the lab within 7 days of sample submission. Performed By: #### U AX, JABIER ####[address] [address] Lab Director: Reji Son DO Methadone Ql (U) Negative Normal NEG [facility] Comment on above: Result Comment: (Positive cutoff 300 ng/mL) Performed By: #### U AX, JABIER ####[address] [phone] Director: Reji Son DO Opiate(s), Ur Negative Normal NEG [facility] Comment on above: Result Comment: (Positive cutoff 300 ng/mL) Performed By: #### U AX, JABIER ####[address] [address])[phone] Director: Reji Son DO Oxycodone, Urine Negative Normal NEG [facility] Comment on above: Result Comment: (Positive cutoff 100 ng/mL) Performed By: #### U AX, JABIER ####[address] [address])[phone] Director: Reji Son DO Phencyclidine, Ur Negative Normal NEG [facility] Comment on above: Result Comment: (Positive cutoff 25 ng/mL) Performed By: #### U AX, JABIER ####[address] [address])[phone] Director: Reji Son DO Ethanol Alcoholon 07-18-2023 Ethanol [Mass/Vol] mg/dL Normal <10 [facility] Comment on above: Performed By: #### C DP, MG, CP, ALCB ####[address] [address] Lab Director: Reji Son DO Ethanol percent <0.010 Normal [facility] Comment on above: Performed By: #### C DP, MG, CP, ALCB ####[facility] [address] [place] [address] Lab Director: Reji Son DO Glucose,Whole Bloodon 2023 Glucose [Mass/Vol] 126 mg/dL High 75-110 [facility] Magnesiumon 07-18-2023 Magnesium [Mass/Vol] 1.8 mg/dL Normal 1.6-2.6 [facility] Comment on above: Performed By: #### C DP, MG, CP, ALCB ####[facility] [address] [place] [address] Lab Director: Reji Son DO UA w/Reflex Cultureon 2023 Bilirubin, SemiQt,Ur Negative Normal NEG [facility] Comment on above: Performed By: #### U AX, JABIER ####[facility] [address] [facility] [place] [address] Lab Director: Reji Son DO Blood, Urine Negative Normal NEG [facility] Comment on above: Performed By: #### U AX, JABIER ####[facility] W[address] [facility] [place] [address] Lab Director: Reji Son DO Clarity (U) Clear Normal CLEAR [facility] Comment on above: Performed By: #### U AX, JABIER ####[facility] Wqp[address] [facility] [place] [address] Lab Director: Reji Son DO Color (U) Yellow Normal YEL [facility] Comment on above: Performed By: #### U AX, JABIER ####[facility] [address]yb[address] [facility] [place] [address] Lab Director: Reji Son DO Comment Microscopic exam not performed based on chemical results unless requested in Normal [facility] Comment on above: Result Comment: orig inal order. Performed By: #### U AX, JABIER ####[facility] [address] [place] [address] [id number])[phone] Director: Reji Son DO Glucose Ql (U) Negative Normal NEG [facility] Comment on above: Performed By: #### U AX, JABIER ####[facility] [address] [place] [address] [phone] Director: Reji Son DO Ketones Ql (U) TRACE Abnormal NEG [facility] Comment on above: Performed By: #### U AX, JABIER ####[address] [address] Lab Director: Reji Son DO Leukocyte esterase Test strip Ql (U) Negative Normal NEG [facility] Comment on above: Performed By: #### U AX, JABIER ####[address] [phone] Director: Reji Son DO Nitrite,Ur Negative Normal NEG [facility] Comment on above: Performed By: #### U AX, JABIER ####[address] [phone] Director: Reji Son DO PH,Ur 5.5 Normal 5.0-8.0 [facility] Comment on above: Performed By: #### U AX, JABIER ####[facility] [address] [place] [address] Lab Director: Reji Son DO Protein Ql (U) Negative Normal NEG [facility] Comment on above: Performed By: #### U AX, JABIER ####[facility] [address] [place], [place] [address], [place] [address] Lab Director: Reji Son DO Spec. [place],Ur 1.011 Normal 1.000-1.030 [facility] Comment on above: Performed By: #### U AX, JABIER ####[facility] [address] [facility] [place] [address] lab Director: Reji Son DO Urobilinogen,Ur Normal Normal 0.0-1.0 [facility] Comment on above: Performed By: #### U AX JABIER ####[facility] [address] [place] [address] lab Director: Reji Son DO Basic Metab w/rfx MGon 06-16 Anion gap [Moles/Vol] 11 mmol/L Normal 9-17 [facility] Comment on above: Performed By: #### B MPX, TIESHA ####[facility] [address] [facility] [place] [address] lab Director: Reji Son DO Calcium [Mass/Vol] 8.6 mg/dL Normal 8.6-10.4 [facility] Comment on above: Performed By: #### B MPX, CDP ####[facility] [address] [place] [address].[place] [address] lab Director: Reji Son DO Chloride [Moles/Vol] 103 mmol/L Normal 98-107 [facility] Comment on above: Performed By: #### B MPX, CDP ####[facility] [address] [place] [address].[place] [address] lab Director: Reji Son DO CO2 [Moles/Vol] 23 mmol/L Normal 20-31 [facility] Comment on above: Performed By: #### B MPX, CDP ####[facility] [address] [place] [address].[place] [address] Lab Director: Reji Son DO Creatinine [Mass/Vol] 0.9 mg/dL Normal 0.7-1.2 [facility] Comment on above: Performed By: #### B DAVIDX, CDP ####[facility] [address] [place] [address] Lab Director: Reji Son DO GFR/1.73 sq M.predicted among non-blacks MDRD (S/P/Bld) [Vol rate/Area] mL/min/{1.73_m2} Normal >60 [facility] Comment on above: Result Comment: [...] secretion. Performed By: #### B MPX, CDP ####[facility] [address] [place] [address] Lab Director: Reji Son DO Glucose [Mass/Vol] 181 mg/dL High 70-99 [facility] Comment on above: Performed By: #### B DAVIDX, CDP ####[facility] [address] [place] [address] Lab Director: Reji Son DO Potassium [Moles/Vol] 4.6 mmol/L Normal 3.7-5.3 [facility] Comment on above: Performed By: #### B DAVIDX, CDP ####[facility] [address] [place] [address] Lab Director: Reji Son DO Sodium [Moles/Vol] 137 mmol/L Normal 135-144 [facility] Comment on above: Performed By: #### B MPX, CDP ####[facility] [address]be[address] [facility] [place] [address] Lab Director: Reji Son DO Urea nitrogen [Mass/Vol] 13 mg/dL Normal 8-23 [facility] Comment on above: Performed By: #### B MPX, CDP ####[facility] [address]ch[address] [facility] [place] [address] lab Director: Reji Son DO Basic Metabolic Panel w/ Ref melina to MGon 06-17-2023 Anion gap [Moles/Vol] 11 mmol/L 9 - 17 mmol/L [facility] Calcium [Mass/Vol] 8.6 mg/dL 8.6 - 10. 4 mg/dL [facility] Chloride [Moles/Vol] 103 mmol/L 98 - 10 7 mmol/L [facility] CO2 [Moles/Vol] 23 mmol/L 20 - 31 mmol/L [facility] Creatinine [Mass/Vol] 0.9 mg/dL 0.7 - 1.2 mg/dL [facility] GFR/1.73 sq M.predicted MDRD (S/P/Bld) [Vol rate/Area] - PINF [facility] Comment on above: These results are not [...] 181 mg/dL High 70 - 99 mg/dL [facility] Interpretation and review of laboratory results Abnormal [facility] Potassium [Moles/Vol] 4.6 mmol/L 3.7 - 5.3 mmol/L [facility] Sodium [Moles/Vol] 137 mmol/L 135 - 144 mmol/L [facility] Urea nitrogen [Mass/Vol] 13 mg/dL 8 - 23 mg/dL [facility] CBC with Auto Differentialon 06-17-2023 Basophils (Bld) [#/Vol] 0.10 10*3/uL [facility] Basophils/100 WBC (Bld) 1 % 0 - 2 % [facility] Eosinophils (Bld) [#/Vol] 0.20 10*3/uL [facility] Eosinophils/100 WBC (Bld) 2 % 0 - 4 % [facility] Erythrocyte distribution width (RBC) [Ratio] 13.6 % 11.5 - 14.9 % [facility] Hematocrit (Bld) [Volume fraction] 46.3 % 41 - 53 % [facility] Hemoglobin (Bld) [Mass/Vol] 14.9 g/dL 13.5 - 17.5 g/dL [facility] Interpretation and review of laboratory results Abnormal [facility] Lymphocytes/100 WBC (Bld) 17 % Low 24 - 44 % [facility] Lymphocytes/100 WBC (Bld) 1.30 % [facility] MCH (RBC) [Entitic mass] 29.2 pg 26 - 34 pg [facility] MCHC (RBC) [Mass/Vol] 32.1 g/dL 31 - 37 g/dL [facility] MCV (RBC) [Entitic vol] 90.9 fL 80 - 100 fL [facility] Monocytes/100 WBC (Bld) 10 % High 1 - 7 % [facility] Monocytes/100 WBC (Bld) 0.70 % [facility] Neutrophils/100 WBC (Bld) 70 % High 36 - 66 % [facility] Platelet mean volume (Bld) [Entitic vol] 7.3 fL 6.0 - 12.0 fL [facility] Platelets (Bld) [#/Vol] 343 10*3/uL [facility] RBC (Bld) [#/Vol] 5.09 10*6/uL 4.5 - 5.9 m/uL [facility] Segmented neutrophils/100 WBC (Bld) 5.30 % [facility] WBC other (Bld) [#/Vol] 7.6 [facility] CBC with Diffon 06-17-2023 Abs. Basophil 0.10 k/uL Normal 0.0-0.2 [facility] Comment on above: Performed By: #### B MPX, CDP ####[facility] [address], [place] [phone] Director: Reji Son DO Abs.Neutrophil (Seg) 5.30 k/uL Normal 1.3-9.1 [facility] Comment on above: Performed By: #### B MPX, CDP ####[facility] [address], [place] [phone] Director: Reji Son DO Basophils/100 WBC (Bld) 1 % Normal 0-2 [facility] Comment on above: Performed By: #### B MPX, CDP ####[facility] [address], [place] [phone] Director: Reji Son DO Eosinophils (Bld) [#/Vol] 0.20 10*3/uL Normal 0.0-0.4 [facility] Comment on above: Performed By: #### Tommy HERNANDEZX, TIESHA ####[facility] [address], [place] [phone] Director: Reji Son DO Eosinophils/100 WBC (Bld) 2 % Normal 0-4 [facility] Comment on above: Performed By: #### B MPX, CDP ####[facility] [address], [place] [phone] Director: Reji Son DO Erythrocyte distribution width (RBC) [Ratio] 13.6 % Normal 11.5-14.9 [facility] Comment on above: Performed By: #### B MPX, CDP ####[facility] [address], [place] [phone] Director: Reji Son DO Hematocrit (Bld) [Volume fraction] 46.3 % Normal 41-53 [facility] Comment on above: Performed By: #### Tommy MPX, CDP ####[facility] [address] [place] [address] Lab Director: Reji Son DO Hemoglobin (Bld) [Mass/Vol] 14.9 g/dL Normal 13.5-17.5 [facility] Comment on above: Performed By: #### Tommy MPX, CDP ####[facility] [address], [place] [phone] Director: Reji Son DO Lymphocytes (Bld) [#/Vol] 1.30 10*3/uL Normal 1.0-4.8 [facility] Comment on above: Performed By: #### Tommy HERNANDEZX, TIESHA ####[facility] [address] [facility], [place] [phone] Director: Reji Son DO Lymphocytes/100 WBC (Bld) 17 % Low 24-44 [facility] Comment on above: Performed By: #### Tommy HERNANDEZX, CDP ####[facility] [address] [facility], [place] [phone] Director: Reji Son DO MCH (RBC) [Entitic mass] 29.2 pg Normal 26-34 [facility] Comment on above: Performed By: #### B MPX, CDP ####[facility] [address] [facility], [place] [phone] Director: Reji Son DO MCHC (RBC) [Mass/Vol] 32.1 g/dL Normal 31-37 [facility] Comment on above: Performed By: #### B MPX, CDP ####[facility] [address] [facility], [place] [phone] Director: Reji Son DO MCV (RBC) [Entitic vol] 90.9 fL Normal 80-100 [facility] Comment on above: Performed By: #### Tommy MPX, CDP ####[facility] [address], [place] [phone] Director: Reji Son DO Monocytes (Bld) [#/Vol] 0.70 10*3/uL Normal 0.1-1.3 [facility] Comment on above: Performed By: #### B MPX, CDP ####[facility] [address] [facility] [address], [place] [phone] Director: Reji Son DO Monocytes/100 WBC (Bld) 10 % High 1-7 [facility] Comment on above: Performed By: #### Tommy MPX, CDP ####[facility] [address] [facility] [address], [place] [phone] Director: Reji Son DO Neutrophil (Seg) 70 % High 36-66 [facility] Comment on above: Performed By: #### Tommy HERNANDEZX, CDP ####[facility] [address] [facility], [place] [phone] Director: Reji Son DO Platelet mean volume (Bld) [Entitic vol] 7.3 fL Normal 6.0-12.0 [facility] Comment on above: Performed By: #### B MPX, CDP ####[facility] [address]sz[address] [facility], [place] [phone] Director: Reji Son DO Platelets (Bld) [#/Vol] 343 10*3/uL Normal 150-450 [facility] Comment on above: Performed By: #### B MPX, CDP ####[facility] [address]wz[address] [facility], [place] [phone] Director: Reji Son DO RBC (Bld) [#/Vol] 5.09 10*6/uL Normal 4.5-5.9 [facility] Comment on above: Performed By: #### B MPX, CDP ####[facility] [address] [place] [address] Lab Director: Reji Son DO WBC (Bld) [#/Vol] 7.6 10*3/uL Normal 3.5-11.0 [facility] Comment on above: Performed By: #### B MPX, CDP ####[facility] [address] [facility] [place] [address] Lab Director: Reji Son DO Cortisolon 06-17-2023 Cortisol 20.2 ug/dL High 2.5-19.5 [facility] Comment on above: Result Comment: Cortisol Reference Range: AM 6.0-18.4 PM 2.7-10.5 Performed By: #### T SH ####[facility] [address] [facility] [place] [address] Lab Director: Reji Son DO#### T4, CORTCelia ####[address] [address] lab Director: Norberto Condon MD EEG awake and asleepon 06-16 Nash Sanders MD 06/17/2023 4:40 PM EEG REPORT CLINICAL NEUROPHYSIOLOGY LABORATORY DEPARTMENT OF NEUROLOGY [facility] Patient: Susie Boyce Age: 72 y.o. [...] Daily Rodriguez Bernal MD 20 mg at 06/17/2353 FLUoxetine (PROZAC) capsule 40 mg 40 mg [...] epileptiform abnormalities were seen. Nash Sanders MD [facility] Neuroscience [place] [facility] EEG awake and asleepOrdered By: Nash Sanders on 06-17-2023 [facility] Work Phone: Glucose,Whole Bloodon 2023 Glucose [Mass/Vol] 184 mg/dL High 75-110 [facility] Glucose [Mass/Vol] 167 mg/dL High 75-110 [facility] Glucose [Mass/Vol] 178 mg/dL High 75-110 [facility] POC Glucose Fingerstickon Glucose [Mass/Vol] 184 mg/dL High 75 - 110 mg/dL [facility] Interpretation and review of laboratory results Abnormal [facility] Glucose [Mass/Vol] 167 mg/dL High 75 - 110 mg/dL [facility] Interpretation and review of laboratory results Abnormal [facility] Glucose [Mass/Vol] 178 mg/dL High 75 - 110 mg/dL [facility] Interpretation and review of laboratory results Abnormal [facility] T4on 06-17-2023 T4 [Mass/Vol] 7.2 ug/dL 4.5 - 11.7 ug/dL [facility] TSHon 06-17-2023 TSH Qn 1.53 m[IU]/L [facility] Thyroid Stim. Horm.on 2023 Thyroid Stim. Horm. 1.53 uIU/mL Normal 0.30-5.00 [facility] Comment on above: Performed By: #### T SH ####[facility] [id number] [place] [address] Lab Director: Reji Son DO#### T4, CORTI ####[facility] [place] [address] lab Director: Norberto Condon MD Thyroxine T4on 06-17-2023 T4 [Mass/Vol] 7.2 ug/dL Normal 4.5-11.7 [facility] Comment on above: Performed By: #### T SH ####[facility] [id number] [place] [address] Lab Director: Reji Son DO#### T4, CORTI ####[facility] [address] [place] [address] Lab Director: Norberto Condon MD Basic Metabolic Panelon 05-29 Anion gap [Moles/Vol] 9 mmol/L 9 - 17 mmol/L [facility] Calcium [Mass/Vol] 9.0 mg/dL 8.6 - 10. 4 mg/dL [facility] Chloride [Moles/Vol] 103 mmol/L 98 - 10 7 mmol/L [facility] CO2 [Moles/Vol] 26 mmol/L 20 - 31 mmol/L [facility] Creatinine [Mass/Vol] 0.8 mg/dL 0.7 - 1.2 mg/dL [facility] GFR/1.73 sq M.predicted MDRD (S/P/Bld) [Vol rate/Area] - PINF [facility] Comment on above: These results are not [...] [Mass/Vol] 91 mg/dL 70 - 99 mg/dL [facility] Potassium [Moles/Vol] 4.2 mmol/L 3.7 - 5.3 mmol/L [facility] Sodium [Moles/Vol] 138 mmol/L 135 - 144 mmol/L [facility] Urea nitrogen [Mass/Vol] 14 mg/dL 8 - 23 mg/dL [facility] Basic Metabolic Profon 06-15 Anion gap [Moles/Vol] 9 mmol/L Normal -17 [facility] Comment on above: Performed By: #### B BAGGAGEMAN, CDP, BMP, TROPI ####[facility] [id number] [place] [address] Lab Director: Reji Son DO Calcium [Mass/Vol] 9.0 mg/dL Normal 8.6-10.4 [facility] Comment on above: Performed By: #### B BAGGAGEMAN, CDP, BMP, TROPI ####[facility] [id number] [place] [address] Lab Director: Reji Son DO Chloride [Moles/Vol] 103 mmol/L Normal 98-107 [facility] Comment on above: Performed By: #### B BAGGAGEMAN, CDP, BMP, TROPI ####[facility] [id number] [facility] [place] [address] lab Director: Reji Son DO CO2 [Moles/Vol] 26 mmol/L Normal 20-31 [facility] Comment on above: Performed By: #### B BAGGAGEMAN, CDP, BMP, TROPI ####[facility] [id number] [facility] [place] [address] Lab Director: Reji Son DO Creatinine [Mass/Vol] 0.8 mg/dL Normal 0.7-1.2 [facility] Comment on above: Performed By: #### B BAGGAGEMAN, CDP, BMP, TROPI ####[facility] [id number] [facility] [place] [address] Lab Director: Reji Son DO GFR/1.73 sq M.predicted among non-blacks MDRD (S/P/Bld) [Vol rate/Area] mL/min/{1.73_m2} Normal >60 [facility] Comment on above: Result Comment: [...] renal tubular secretion. Performed By: #### B BAGGAGEMAN, CDP, BMP, TROPI ####[facility] [id number], [place] [phone] Director: Reji Son DO Glucose [Mass/Vol] 91 mg/dL Normal 70-99 [facility] Comment on above: Performed By: #### B BAGGAGEMAN, CDP, BMP, TROPI ####[facility] [address], [place] [phone] Director: Reji Son DO Potassium [Moles/Vol] 4.2 mmol/L Normal 3.7-5.3 [facility] Comment on above: Performed By: #### B BAGGAGEMAN, CDP, BMP, TROPI ####[facility] [id number] [facility], [place] [phone] Director: Reji Son DO Sodium [Moles/Vol] 138 mmol/L Normal 135-144 [facility] Comment on above: Performed By: #### B BAGGAGEMAN, CDP, BMP, TROPI ####[facility] [id number] [facility] [place] [address] Lab Director: Reji Son DO Urea nitrogen [Mass/Vol] 14 mg/dL Normal 8-23 [facility] Comment on above: Performed By: #### B BAGGAGEMAN, CDP, BMP, TROPI ####[facility] [id number] [facility], [place] [phone] Director: Reji Son DO Brain Natri. Peptideon 06-15 Natriuretic peptide B (Bld) [Mass/Vol] 105 pg/mL Normal <300 [facility] Comment on above: Result Comment: An age-independent cutoff point of 300 pg/ml has a 98% negative predictive value excluding acute heart failure. Performed By: #### B BAGGAGEMAN, CDP, BMP, TROPI ####[facility] [id number] [facility], [place] [phone] Director: Reji Son DO Brain Natriuretic Peptideon 06-16-2023 Natriuretic peptide B (Bld) [Mass/Vol] 105 pg/mL NINF - 300 pg/mL [facility] Comment on above: An age-independent cutoff point of 300 pg/ml has a 98% negative predictive value excluding acute heart failure. [facility] CBC with Auto Differentialon 06-16-2023 Basophils (Bld) [#/Vol] 0.00 10*3/uL [facility] Basophils/100 WBC (Bld) 1 % 0 - 2 % [facility] Eosinophils (Bld) [#/Vol] 0.20 10*3/uL [facility] Eosinophils/100 WBC (Bld) 2 % 0 - 4 % [facility] Erythrocyte distribution width (RBC) [Ratio] 14.1 % 11.5 - 14.9 % [facility] Hematocrit (Bld) [Volume fraction] 46.1 % 41 - 53 % [facility] Hemoglobin (Bld) [Mass/Vol] 15.0 g/dL 13.5 - 17.5 g/dL [facility] Interpretation and review of laboratory results Abnormal [facility] Lymphocytes/100 WBC (Bld) 14 % Low 24 - 44 % [facility] Lymphocytes/100 WBC (Bld) 1.00 % [facility] MCH (RBC) [Entitic mass] 29.5 pg 26 - 34 pg [facility] MCHC (RBC) [Mass/Vol] 32.5 g/dL 31 - 37 g/dL [facility] MCV (RBC) [Entitic vol] 90.5 fL 80 - 100 fL [facility] Monocytes/100 WBC (Bld) 9 % High 1 - 7 % [facility] Monocytes/100 WBC (Bld) 0.70 % [facility] Neutrophils/100 WBC (Bld) 74 % High 36 - 66 % [facility] Platelet mean volume (Bld) [Entitic vol] 7.4 fL 6.0 - 12.0 fL [facility] Platelets (Bld) [#/Vol] 342 10*3/uL [facility] RBC (Bld) [#/Vol] 5.09 10*6/uL 4.5 - 5.9 m/uL [facility] Segmented neutrophils/100 WBC (Bld) 5.60 % [facility] WBC other (Bld) [#/Vol] 7.5 [facility] CBC with Diffon 06-16-2023 Abs. Basophil 0.00 k/uL Normal 0.0-0.2 [facility] Comment on above: Performed By: #### B BAGGAGEMAN, CDP, BMP, TROPI ####[facility] [id number] [facility] [address], [place] [phone] Director: Reji Son DO Abs.Neutrophil (Seg) 5.60 k/uL Normal 1.3-9.1 [facility] Comment on above: Performed By: #### B BAGGAGEMAN, CDP, BMP, TROPI ####[facility] [id number] [facility] [address], [place] [phone] Director: Reji Son DO Basophils/100 WBC (Bld) 1 % Normal 0-2 [facility] Comment on above: Performed By: #### B BAGGAGEMAN, CDP, BMP, TROPI ####[facility] [id number] [facility], [place] [phone] Director: Reji Son DO Eosinophils (Bld) [#/Vol] 0.20 10*3/uL Normal 0.0-0.4 [facility] Comment on above: Performed By: #### B BAGGAGEMAN, CDP, BMP, TROPI ####[facility] [id number] [facility] [place] [address] Lab Director: Reji Son DO Eosinophils/100 WBC (Bld) 2 % Normal 0-4 [facility] Comment on above: Performed By: #### B BAGGAGEMAN, CDP, BMP, TROPI ####[facility] [id number] [facility] [place] [address] lab Director: Reji Son DO Erythrocyte distribution width (RBC) [Ratio] 14.1 % Normal 11.5-14.9 [facility] Comment on above: Performed By: #### B BAGGAGEMAN, CDP, BMP, TROPI ####[facility] [address], [place] [phone] Director: Reji Son DO Hematocrit (Bld) [Volume fraction] 46.1 % Normal 41-53 [facility] Comment on above: Performed By: #### B BAGGAGEMAN, CDP, BMP, TROPI ####[facility] [address] [facility] [place] [address] lab Director: Reji Son DO Hemoglobin (Bld) [Mass/Vol] 15.0 g/dL Normal 13.5-17.5 [facility] Comment on above: Performed By: #### B BAGGAGEMAN, CDP, BMP, TROPI ####[facility] [id number] [facility] [place] [address] [facility] Director: Reji Son DO Lymphocytes (Bld) [#/Vol] 1.00 10*3/uL Normal 1.0-4.8 [facility] Comment on above: Performed By: #### B BAGGAGEMAN, CDP, BMP, TROPI ####[facility] [id number] [facility] [place] [address] Lab Director: Reji Son DO Lymphocytes/100 WBC (Bld) 14 % Low 24-44 [facility] Comment on above: Performed By: #### B BAGGAGEMAN, CDP, BMP, TROPI ####[facility] [id number] [place] [address].[place] [address] Lab Director: Reji Son DO MCH (RBC) [Entitic mass] 29.5 pg Normal 26-34 [facility] Comment on above: Performed By: #### B BAGGAGEMAN, CDP, BMP, TROPI ####[facility] [id number] [facility], [place] [phone] Director: Reji Son DO MCHC (RBC) [Mass/Vol] 32.5 g/dL Normal 31-37 [facility] Comment on above: Performed By: #### B BAGGAGEMAN, CDP, BMP, TROPI ####[facility] [id number] [facility] [place], [place] [phone] Director: Reji Son DO MCV (RBC) [Entitic vol] 90.5 fL Normal 80-100 [facility] Comment on above: Performed By: #### B BAGGAGEMAN, CDP, BMP, TROPI ####[facility] [address] [place], [place] [phone] Director: Reji Son DO Monocytes (Bld) [#/Vol] 0.70 10*3/uL Normal 0.1-1.3 [facility] Comment on above: Performed By: #### B BAGGAGEMAN, CDP, BMP, TROPI ####[facility] [address] [place], [place] [phone] Director: Reji Son DO Monocytes/100 WBC (Bld) 9 % High 1-7 [facility] Comment on above: Performed By: #### B BAGGAGEMAN, CDP, BMP, TROPI ####[facility] [id number] [place] [address].[place], [place] [phone] Director: Reji Son DO Neutrophil (Seg) 74 % High 36-66 [facility] Comment on above: Performed By: #### B BAGGAGEMAN, CDP, BMP, TROPI ####[facility] [id number] [place] [address] [phone] Director: Reji Son DO Platelet mean volume (Bld) [Entitic vol] 7.4 fL Normal 6.0-12.0 [facility] Comment on above: Performed By: #### B BAGGAGEMAN, CDP, BMP, TROPI ####[facility] [id number] [facility] [place] [address] Lab Director: Reji Son DO Platelets (Bld) [#/Vol] 342 10*3/uL Normal 150-450 [facility] Comment on above: Performed By: #### B BAGGAGEMAN, CDP, BMP, TROPI ####[facility] [id number] [facility] [place] [address] Lab Director: Reji Son DO RBC (Bld) [#/Vol] 5.09 10*6/uL Normal 4.5-5.9 [facility] Comment on above: Performed By: #### B BAGGAGEMAN, CDP, BMP, TROPI ####[facility] [id number] [facility] [place] [address] Lab Director: Reji Son DO WBC (Bld) [#/Vol] 7.5 10*3/uL Normal 3.5-11.0 [facility] Comment on above: Performed By: #### B BAGGAGEMAN, CDP, BMP, TROPI ####[facility] [id number] [facility] [place], [place] [phone] Director: Reji Son DO Glucose,Whole Bloodon 2023 Glucose [Mass/Vol] 171 mg/dL High 75-110 [facility] Glucose [Mass/Vol] 92 mg/dL Normal 75-110 [facility] POC Glucose Fingerstickon Glucose [Mass/Vol] 171 mg/dL High 75 - 110 mg/dL [facility] Interpretation and review of laboratory results Abnormal [facility] Glucose [Mass/Vol] 92 mg/dL 75 - 110 mg/dL [facility] Portable XR Chest AP single viewon 06-16-2023 No acute airspace disease identified. [facility] RIS CONSOLIDATED EXAMINATION: ONE XRAY VIEW OF THE CHEST 06/16/2023 11:47 am COMPARISON: None. HISTORY: ORDERING SYSTEM PROVIDED HISTORY: chest pain, syncope TECHNOLOGIST PROVIDED HISTORY: chest pain, syncope Reason for Exam: chest pain, syncope FINDINGS: The cardiomediastinal silhouette is within normal limits. There is no consolidation, pneumothorax or evidence for edema. No evidence for effusion. No acute osseous abnormality is identified. [facility] Betito Cabrera MD - 06/16/2023 EXAMINATION: ONE XRAY VIEW [...] identified. IMPRESSION: No acute airspace disease identified. [facility] Radiology Study observation (narrative) [facility] Portable XR Chest AP single viewOrdered By: Betito Williamson on 06-16-2023 [facility] Work Phone: Troponinon 06-16-2023 Troponin I.cardiac High sensitivity method [Mass/Vol] 15 ng/L 0 - 22 ng/L [facility] Comment on above: High Sensitivity Tro ponin values cannot be compared with other Troponin methodologies. [facility] Troponin, High Sens 15 ng/L Normal 0-22 [facility] Comment on above: Result Comment: High Sensitivity Troponin values cannot be compared with other Troponin methodologies. Performed By: #### T ROPI ####[facility] [id number] [place] [address] [facility] Director: Reji Son DO Troponin I.cardiac High sensitivity method [Mass/Vol] 17 ng/L 0 - 22 ng/L [facility] Comment on above: High Sensitivity Tro ponin values cannot be compared with other Troponin methodologies. [facility] Troponin, High Sens 17 ng/L Normal 0-22 [facility] Comment on above: Result Comment: High Sensitivity Troponin values cannot be compared with other Troponin methodologies. Performed By: #### B BAGGAGEMAN, CDP, BMP, TROPI ####[facility] [id number] [place] [address] Lab Director: Reji Son DO XR CHEST PORTABLEon [...] Betito Williamson MD 06/16/23 Final result Normal [facility] Basic Metabolic Profon 01-18 Anion gap [Moles/Vol] 17 mmol/L Normal 9-[address] [facility] Comment on above: Performed By: #### B MP #### [facility] [employer] [address] [place] [address] [employer]: Norberto Condon MD Calcium [Mass/Vol] 9.7 mg/dL Normal 8.6-10.[address] [facility] Comment on above: Performed By: #### B MP #### [facility] [employer] [address] [place] [address] [employer]: Norberto Condon MD Chloride [Moles/Vol] 100 mmol/L Normal 98-107 [facility] Comment on above: Performed By: #### B MP #### [facility] [employer] [facility] [place] [address] [employer] Machine: Norberto Condon MD CO2 [Moles/Vol] 19 mmol/L Low 20-[address] [facility] Comment on above: Performed By: #### B MP #### [facility] [employer] [address] [place] [address] [employer]: Norberto Condon MD Creatinine [Mass/Vol] 1.0 mg/dL Normal 0.7-1.[address] [facility] Comment on above: Performed By: #### B MP #### [address] [address] [employer]: Norberto Condon MD GFR/1.73 sq M.predicted among non-blacks MDRD (S/P/Bld) [Vol rate/Area] mL/min/{1.73_m2} Normal >[address] [facility] Comment on above: Result Comment: These [...] secretion. Performed By: #### B MP #### [facility] [employer] [address] [place] [address] [employer]: Norberto Condon MD Glucose [Mass/Vol] 188 mg/dL High 70-[address] [facility] Comment on above: Performed By: #### B MP #### [facility] [employer] [address] [place] [phone] [employer] Machine: Norberto Condon MD Potassium [Moles/Vol] 4.6 mmol/L Normal 3.7-5.[address] [facility] Comment on above: Performed By: #### B MP #### [email or web address] [address] [place] [address] [employer] Machine: Norberto Condon MD Sodium [Moles/Vol] 136 mmol/L Normal 135-[address] [facility] Comment on above: Performed By: #### B MP #### [facility] [employer] [address] [place] [address] [employer] Machine: Norberto Condon MD Urea nitrogen [Mass/Vol] 20 mg/dL Normal 8-[address] [facility] Comment on above: Performed By: #### B MP #### [address] [address] [employer]: Norberto Condon MD Clinical Supporton Clinical Support [phone] Susie Boyce 1950 M Date Provider Department [place] 10/26/2022 PAT VASQUES OT Medical [facility]avi No family history on file Normal [facility] Comp Metabol,Fastingon 10-04 Albumin [Mass/Vol] 4.5 g/dL Normal 3.5-5.[address] [facility] Comment on above: Performed By: #### L IPR, CMPF #### [facility] [employer] [address] [place] [address] [employer] Machine: Norberto Condon MD Albumin/Glob Ratio 1.7 Normal 1.0-2.[address] [facility] Comment on above: Performed By: #### L IPR, CMPF #### [email or web address] [address] [place] [address] [employer]: Norberto Condon MD Alkaline Phos 69 U/L Normal 40-[address] [facility] Comment on above: Performed By: #### L IPR, CMPF #### [email or web address] [address] [place] [address] [employer] Machine: Norberto Condon MD ALT [Catalytic activity/Vol] 15 U/L Normal 5-[address] [facility] Comment on above: Performed By: #### L IPR, CMPF #### [email or web address] [address] [place] [address] [employer] Machine: Norberto Condon MD AST [Catalytic activity/Vol] 13 U/L Normal <[address] [facility] Comment on above: Performed By: #### L IPR, CMPF #### [email or web address] [address] [place] [address] [employer] Machine: Norberto Condon MD Bilirubin [Mass/Vol] 0.4 mg/dL Normal 0.3-1.2 [facility] Comment on above: Performed By: #### L IPR, CMPF #### [facility] [address] [place] [address] [employer] Machine: Norberto Condon MD Protein [Mass/Vol] 7.2 g/dL Normal 6.4-8.[address] [facility] Comment on above: Performed By: #### L IPR, CMPF #### [facility] [address] [place] [address] Bender Machine: Norberto Condon MD Anion gap [Moles/Vol] 19 mmol/L High 9-[address] [facility] Comment on above: Performed By: #### L IPR, CMPF #### [facility] [employer] [address] [place] [address] Bender Machine: Norberto Condon MD Calcium [Mass/Vol] 9.8 mg/dL Normal 8.6-10.[address] [facility] Comment on above: Performed By: #### L IPR, CMPF #### [facility] [employer] [address] [place] [address] B[employer] Machine: Norberto Condon MD Chloride [Moles/Vol] 101 mmol/L Normal 98-107 [facility] Comment on above: Performed By: #### L IPR, CMPF #### [facility] [address] [place] [address] B[employer] Machine: Norberto Condon MD CO2 [Moles/Vol] 19 mmol/L Low 20-[address] [facility] Comment on above: Performed By: #### L IPR, CMPF #### [facility] [address] [place] [address] [employer] Machine: Norberto Condon MD Creatinine [Mass/Vol] 1.0 mg/dL Normal 0.7-1.[address] [facility] Comment on above: Performed By: #### L IPR, CMPF #### [facility] [employer] [address] [place] [address] [employer] Machine: Norberto Condon MD GFR/1.73 sq M.predicted among non-blacks MDRD (S/P/Bld) [Vol rate/Area] mL/min/{1.73_m2} Normal >[address] [facility] Comment on above: Result Comment: These [...] renal tubular secretion. Performed By: #### L IPR CMPF #### [facility] [employer] [address] [place] [address] [employer] Machine: Norberto Condon MD Glucose [Mass/Vol] 138 mg/dL High 70-[address] [facility] Comment on above: Performed By: #### L IPR CMPF #### [facility] [employer] [address] [place] [address] B[employer] Machine: Norberto Condon MD Potassium [Moles/Vol] 4.9 mmol/L Normal 3.7-5.[address] [facility] Comment on above: Performed By: #### L IPR, CMPF #### [email or web address] [address] [place] [address] [employer] Machine: Norberto Condon MD Sodium [Moles/Vol] 139 mmol/L Normal 135-[address] [facility] Comment on above: Performed By: #### L IPR, CMPF #### [email or web address] [address] [place] [address] [employer] Machine: Norberto Condon MD Urea nitrogen [Mass/Vol] 26 mg/dL High 8-[address] [facility] Comment on above: Performed By: #### L IPR, CMPF #### [employer] [address] [place] [address] [employer] Machine: Norberto Condon MD Lipid Profileon 10-04-2022 Cholesterol [Mass/Vol] 125 mg/dL Normal <[address] [facility] Comment on above: Result Comment: Cholesterol Guidelines: <200 Desirable 200-240 Borderline >240 Undesirable Performed By: #### L IPR, CMPF #### [employer] [address] [place] [address] [employer] Machine: Norberto Condon MD Cholesterol in HDL [Mass/Vol] 43 mg/dL Normal >[address] [facility] Comment on above: Result Comment: HDL Guidelines: <40 Undesirable 40-59 Borderline >59 Desirable Performed By: #### L IPR, CMPF #### [email or web address] [address] [place] [address] B[employer] Machine: Norberto Condon MD Cholesterol in LDL [Mass/Vol] 66 mg/dL Normal 0-[address] [facility] Comment on above: Result Comment: LDL Guidelines: <100 Desirable 100-129 Near to/above Desirable 130-159 Borderline >159 Undesirable Direct (measured) LDL and calculated LDL are not interchangeable tests. Performed By: #### L IPR, CMPF #### [employer] [address] [place] [address] [employer] Machine: Norberto Condon MD Cholesterol.total/Ch olesterol in HDL [Mass ratio] 2.9 {ratio} Normal <[address] [facility] Comment on above: Performed By: #### L IPR, CMPF #### [employer] [address] [place] [address] [employer] Machine: Norberto Condon MD Triglyceride [Mass/Vol] 80 mg/dL Normal <[address] [facility] Comment on above: Result Comment: Triglyceride Guidelines: <150 Desirable 150-199 Borderline 200-499 High >499 Very high Based on AHA Guidelines for fasting triglyceride, November 2011. Performed By: #### L IPR, [facility] #### [id number] [place], [place] [phone] [employer]: Norberto Condon MD MRI BRAIN W WO [...] Bertin David MD 09/13/22 Final result Normal [facility] Creatinine w/GFRon Creatinine [Mass/Vol] 0.8 mg/dL Normal 0.7-1.2 [facility] Comment on above: Performed By: #### C REG #### [facility] [address] [place] [address] Bender Machine: Derrek Godinez MD GFR/1.73 sq M.predicted among non-blacks MDRD (S/P/Bld) [Vol rate/Area] mL/min/{1.73_m2} Normal >60 [facility] Comment on above: Result Comment: These results [...] secretion. Performed By: #### C REG #### [facility] [address] [place] [address] Bender Machine: Derrek Godinez MD B12/Folate Panelon 3 Cobalamin (Vitamin B12) [Mass/Vol] 392 pg/mL Normal 232-[address] [facility] Comment on above: Performed By: #### B 12FOL #### [facility] [address] [place] [address] Bender Machine: Norberto Condon MD Folic Acid 13.6 ng/mL Normal >4.[address] [facility] Comment on above: Performed By: #### B 12FOL #### [facility] [address] [place] [address] Bender Machine: Norberto Condon MD Vitamin B12 & Folateon 08-11 Cobalamin (Vitamin B12) [Mass/Vol] 392 pg/mL 232 - 1245 pg/mL [facility] Folate [Mass/Vol] 13.6 ng/mL 4.8 - PINF ng/mL [facility] MRI CERVICAL SPINE WO CONTRA STon [...] Fazal Rodas DO 01/03/22 Final result Normal [facility] Multilevel cervical spondylosis resulting in upwards of moderate canal stenosis at C6-7. Varying levels of foraminal stenosis, severe on the left at C6-7. [facility] CONSOLIDATED EXAMINATION: MRI OF THE CERVICAL SPINE [...] spinal canal stenosis or neural foraminal narrowing. [facility] Fazal Rodas DO - 01/03/2022 EXAMINATION: [...] stenosis, severe on the left at C6-7. [employer] Work Phone: MRI CERVICAL SPINE WO CONTRA STOrdered By: Fazal Rodas on 01-03-2022 [employer] Work Phone: MRI CERVICAL SPINE MICHAEL Davis 01-01-2022 Radiology Study observation (narrative) [employer] Work Phone: XR CERVICAL SPINE (2-3 VIEWS )on 10-30-2021 No acute osseous abnormality. Multilevel degenerative change. [facility] CONSOLIDATED EXAMINATION: XRAY VIEWS OF THE CERVICAL SPINE 10/30/2021 8:51 am COMPARISON: None. 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 No acute osseous abnormality. Moderate degenerative change throughout most significant C4-5 C5-6 with loss of disc height endplate spondylosis. Prevertebral soft tissues unremarkable. [facility] CONSOLIDATED Doroteo Mcmillan DO - 10/30/2021 EXAMINATION: XRAY VIEWS OF THE CERVICAL SPINE 10/30/2021 8:51 am COMPARISON: None. 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 No acute osseous abnormality. Moderate degenerative change throughout most significant C4-5 C5-6 with loss of disc height endplate spondylosis. Prevertebral soft tissues unremarkable. IMPRESSION: No acute osseous abnormality. Multilevel degenerative change. [employer] Work Phone: Radiology Study observation (narrative) [employer] Work Phone: XR CERVICAL SPINE (2-3 VIEWS )Ordered By: Doroteo Mcmillan on 10-30-2021 [employer] Work Phone: Comprehensive Metabolic Pane l, Fastingon 10-29-2021 Albumin [Mass/Vol] 4.4 g/dL 3.5 - 5.2 g/dL [facility] Albumin/Globulin [Mass ratio] 1.6 {ratio} 1 - 2.5 [employer] ALP (Bld) [Catalytic activity/Vol] 67 U/L 40 - 129 U/L [facility] ALT [Catalytic activity/Vol] 20 U/L 5 - 41 U/L [facility] Anion gap [Moles/Vol] 15 mmol/L 9 - 17 mmol/L [facility] AST [Catalytic activity/Vol] 14 U/L NINF - 40 U/L [facility] Bilirubin [Mass/Vol] 0.6 mg/dL 0.3 - 1 .2 mg/dL [facility] Calcium [Mass/Vol] 9.4 mg/dL 8.6 - 10. 4 mg/dL [facility] Chloride [Moles/Vol] 103 mmol/L 98 - 10 7 mmol/L [facility] CO2 [Moles/Vol] 23 mmol/L 20 - 31 mmol/L [facility] Creatinine [Mass/Vol] 0.79 mg/dL 0.7 - 1.2 mg/dL [facility] Free PSA/Total PSA [Mass fraction] 7.2 g/dL 6.4 - 8.3 g/dL [facility] GFR >60 60 - PI NF mL/min [facility] GFR Non- >60 60 - PINF mL/min [facility] GFR/1.73 sq M.predicted MDRD (S/P/Bld) [Vol rate/Area] [facility] Comment on above: Average GFR for 70 o r more years old: 75 mL/min/1.73sq m Chronic Kidney Disease: <60 mL/min/1.73sq m Kidney failure: <15 mL/min/1.73sq m eGFR calculated using average adult body mass. Additional eGFR calculator available at: http://www.[employer]/multiple_crcl_2012.htm Glucose [Mass/Vol] 139 mg/dL High 70 - 99 mg/dL [facility] Interpretation and review of laboratory results Abnormal [facility] Potassium [Moles/Vol] 4.6 mmol/L 3.7 - 5.3 mmol/L [facility] Sodium [Moles/Vol] 141 mmol/L 135 - 144 mmol/L [facility] Urea nitrogen (BldV) [Mass/Vol] 20 mg/dL 8 - 23 mg/dL [facility] Lipid Panelon 10-29-2021 Cholesterol [Mass/Vol] 160 mg/dL NINF - 200 mg/dL [facility] Comment on above: Cholesterol Guidelines: <200 Desirable 200-240 Borderline >240 Undesirable Cholesterol in HDL [Mass/Vol] 41 mg/dL 40 - PINF mg/dL [facility] Comment on above: HDL Guidelines: <40 Undesirable 40-59 Borderline >59 Desirable Cholesterol in LDL [Mass/Vol] 95 mg/dL 0 - 130 mg/dL [facility] Comment on above: LDL Guidelines: <100 Desirable 100-129 Near to/above Desirable 130-159 Borderline >159 Undesirable Direct (measured) LDL and calculated LDL are not interchangeable tests. Cholesterol.total/Ch olesterol in HDL [Mass ratio] 3.9 {ratio} NINF - 5 [facility] Triglyceride [Mass/Vol] 118 mg/dL NINF - 150 mg/dL [facility] Comment on above: Triglyceride Guidelines: <150 Desirable 150-199 Borderline 200-499 High >499 Very high Based on AHA Guidelines for fasting triglyceride, November 2011. No Panel Informationon 10-29 [facility] TSH With Reflex Ft4on 2021 TSH Qn 1.88 m[IU]/L [facility] Vitamin B12on 10-29-2021 Cobalamin (Vitamin B12) [Mass/Vol] 192 pg/mL Low 232 - 1245 pg/mL [facility] Interpretation and review of laboratory results Abnormal [facility] Vital Signs Date Time Vital Sign Value Performing Clinician Facility 09-14-2024 17:31-0400 Body mass index (BMI) [Ratio] 25.73 kg/m2 [facility] [facility] Work Phone: [facility] 09-14-2024 17:31-0400 Body temperature 97.39 [degF] [facility] 09-14-2024 17:31-0400 Body weight 76.75 kg Javad Furlong DO Work Phone: [facility] 09-14-2024 17:31-0400 Diastolic blood pressure 56 mm[Hg] Javad Furlong DO Work Phone: [facility] 09-14-2024 17:31-0400 Heart rate 64 /min Javad Furlong DO Work Phone: [facility] 09-14-2024 17:31-0400 Respiratory rate 20 /min Javad Furlong DO Work Phone: [facility] 09-14-2024 17:31-0400 SaO2% (BldA) [Mass fraction] 99 % Javad Furlong DO Work Phone: [facility] 09-14-2024 17:31-0400 Systolic blood pressure 142 mm[Hg] Javad Furlong DO Work Phone: [facility] 08-10-2024 14:30-0400 Body mass index (BMI) [Ratio] 25.88 kg/m2 Javad Furlong DO Work Phone: [facility] 08-10-2024 14:30-0400 Body temperature 98.1 [degF] Javad Furlong DO Work Phone: [facility] 08-10-2024 14:30-0400 Body weight 77.2 kg Javad Furlong DO Work Phone: [facility] 08-10-2024 14:30-0400 Diastolic blood pressure 66 mm[Hg] Javad Furlong DO Work Phone: [facility] 08-10-2024 14:30-0400 Heart rate 64 /min Javad Furlong DO Work Phone: [facility] 08-10-2024 14:30-0400 Respiratory rate 20 /min Javad Furlong DO Work Phone: [facility] 08-10-2024 14:30-0400 SaO2% (BldA) [Mass fraction] 98 % Javad Furlong DO Work Phone: [facility] 08-10-2024 14:30-0400 Systolic blood pressure 110 mm[Hg] Javad Furlong DO Work Phone: [facility] 07-13-2024 19:30-0400 Body mass index (BMI) [Ratio] 25.73 kg/m2 Javad Furlong DO Work Phone: [facility] 07-13-2024 19:30-0400 Body temperature 97.7 [degF] Javad Furlong DO Work Phone: [facility] 07-13-2024 19:30-0400 Body weight 76.75 kg Javad Furlong DO Work Phone: [facility] 07-13-2024 19:30-0400 Diastolic blood pressure 73 mm[Hg] Javad Furlong DO Work Phone: [facility] 07-13-2024 19:30-0400 Heart rate 59 /min Javad Furlong DO Work Phone: [facility] 07-13-2024 19:30-0400 Respiratory rate 20 /min Javad Furlong DO Work Phone: [facility] 07-13-2024 19:30-0400 SaO2% (BldA) [Mass fraction] 96 % Javad Furlong DO Work Phone: [facility] 07-13-2024 19:30-0400 Systolic blood pressure 134 mm[Hg] Javad Furlong DO Work Phone: [facility] 05-25-2024 18:13-0400 Body mass index (BMI) [Ratio] 25.94 kg/m2 Javad Furlong DO Work Phone: [facility] 05-25-2024 18:13-0400 Body temperature 97.3 [degF] [facility] Furlong DO [facility] 05-25-2024 18:13-0400 Body weight 77.38 kg Javad Furlong DO Work Phone: [facility] [employer] 05-25-2024 18:13-0400 Diastolic blood pressure 63 mm[Hg] Javad Furlong DO Work Phone: [facility] 05-25-2024 18:13-0400 Heart rate 54 /min Javad Furlong DO Work Phone: [facility] 05-25-2024 18:13-0400 Respiratory rate 18 /min Javad Furlong DO Work Phone: [facility] 05-25-2024 18:13-0400 SaO2% (BldA) [Mass fraction] 99 % Javad Furlong DO Work Phone: [facility] 05-25-2024 18:13-0400 Systolic blood pressure 127 mm[Hg] Javad Furlong DO [facility] 04-27-2024 21:46-0500 Body mass index (BMI) [Ratio] 26.91 kg/m2 Javad Furlong DO [facility] 04-27-2024 21:46-0500 Body temperature 97.81 [degF] Javad Furlong DO Work Phone: [facility] 04-27-2024 21:46-0500 Body weight 77.93 kg Javad Furlong DO [facility] 04-27-2024 21:46-0500 Diastolic blood pressure 62 mm[Hg] Javad Furlong DO Work Phone: [facility] 04-27-2024 21:46-0500 Heart rate 66 /min Javad Furlong DO Work Phone: [facility] 04-27-2024 21:46-0500 Respiratory rate 18 /min Javad Furlong DO Work Phone: [facility] 04-27-2024 21:46-0500 SaO2% (BldA) [Mass fraction] 97 % Javad Furlong DO Work Phone: [facility] 04-27-2024 21:46-0500 Systolic blood pressure 119 mm[Hg] Javad Furlong DO Work Phone: [facility] 03-31-2024 17:43-0500 Body mass index (BMI) [Ratio] 27.06 kg/m2 Javad Furlong DO Work Phone: [facility] 03-31-2024 17:43-0500 Body temperature 97.9 [degF] Javad Furlong DO Work Phone: [facility] 03-31-2024 17:43-0500 Body weight 78.38 kg Javad Furlong DO Work Phone: [facility] 03-31-2024 17:43-0500 Diastolic blood pressure 51 mm[Hg] Javad Furlong DO Work Phone: [facility] 03-31-2024 17:43-0500 Heart rate 53 /min Javad Furlong DO Work Phone: [facility] 03-31-2024 17:43-0500 Respiratory rate 18 /min Javad Furlong DO Work Phone: [facility] 03-31-2024 17:43-0500 SaO2% (BldA) [Mass fraction] 93 % Javad Furlong DO Work Phone: [facility] 03-31-2024 17:43-0500 Systolic blood pressure 97 mm[Hg] Javad Furlong DO Work Phone: [facility] 02-24-2024 16:54-0500 Body temperature 97.7 [degF] Javad Furlong DO Work Phone: [facility] 02-24-2024 16:54-0500 Diastolic blood pressure 88 mm[Hg] Javad Furlong DO Work Phone: [facility] 02-24-2024 16:54-0500 Heart rate 62 /min Javad Furlong DO Work Phone: [facility] 02-24-2024 16:54-0500 Respiratory rate 20 /min Javad Furlong DO Work Phone: [facility] 02-24-2024 16:54-0500 SaO2% (BldA) [Mass fraction] 97 % Javad Furlong DO Work Phone: [facility] 02-24-2024 16:54-0500 Systolic blood pressure 158 mm[Hg] Javad Furlong DO Work Phone: [facility] 02-10-2024 17:43-0500 Body mass index (BMI) [Ratio] 26.91 kg/m2 Ajvad Furlong DO Work Phone: [facility] 02-10-2024 17:43-0500 Body weight 77.93 kg Javad Furlong DO Work Phone: [facility] 01-27-2024 14:35-0500 Body mass index (BMI) [Ratio] 27.6 kg/m2 Javad Furlong DO Work Phone: [facility] 01-27-2024 14:35-0500 Body temperature 96.91 [degF] Javad Furlong DO Work Phone: [facility] 01-27-2024 14:35-0500 Body weight 79.92 kg Javad Furlong DO Work Phone: [facility] 01-27-2024 14:35-0500 Diastolic blood pressure 68 mm[Hg] Javad Furlong DO Work Phone: [facility] 01-27-2024 14:35-0500 Heart rate 66 /min Javad Furlong DO Work Phone: [facility] 01-27-2024 14:35-0500 Respiratory rate 18 /min Javad Furlong DO Work Phone: [facility] 01-27-2024 14:35-0500 SaO2% (BldA) [Mass fraction] 95 % Javad Furlong DO Work Phone: [facility] 01-27-2024 14:35-0500 Systolic blood pressure 126 mm[Hg] Javad Furlong DO Work Phone: [facility] 12-23-2023 15:54-0400 Body mass index (BMI) [Ratio] 27.06 kg/m2 Javad Furlong DO Work Phone: [facility] 12-23-2023 15:54-0400 Body temperature 97.9 [degF] Javad Furlong DO Work Phone: [facility] 12-23-2023 15:54-0400 Body weight 78.38 kg Javad Furlong DO Work Phone: [facility] 12-23-2023 15:54-0400 Diastolic blood pressure 76 mm[Hg] Javad Furlong DO Work Phone: [facility] 12-23-2023 15:54-0400 Heart rate 76 /min Javad Furlong DO Work Phone: [facility] 12-23-2023 15:54-0400 Respiratory rate 17 /min Javad Furlong DO Work Phone: [facility] 12-23-2023 15:54-0400 SaO2% (BldA) [Mass fraction] 97 % Javad Furlong DO Work Phone: [facility] 12-23-2023 15:54-0400 Systolic blood pressure 134 mm[Hg] Javad Furlong DO Work Phone: [facility] 11-04-2023 17:04-0400 Body temperature 97.9 [degF] Javad Furlong DO Work Phone: [facility] 11-04-2023 17:04-0400 Diastolic blood pressure 55 mm[Hg] Javad Furlong DO Work Phone: [facility] 11-04-2023 17:04-0400 Heart rate 53 /min Javad Furlong DO Work Phone: [facility] 11-04-2023 17:04-0400 Respiratory rate 18 /min Javad Furlong DO Work Phone: [facility] 11-04-2023 17:04-0400 SaO2% (BldA) [Mass fraction] 95 % Javad Furlong DO Work Phone: [facility] 11-04-2023 17:04-0400 Systolic blood pressure 105 mm[Hg] Javad Furlong DO Work Phone: [facility] 10-26-2023 21:36-0400 Body mass index (BMI) [Ratio] 27.44 kg/m2 Javad Furlong DO Work Phone: [facility] 10-26-2023 21:36-0400 Body temperature 97.9 [degF] Javad Furlong DO Work Phone: [facility] 10-26-2023 21:36-0400 Body weight 79.47 kg Javad Furlong DO Work Phone: [facility] 10-26-2023 21:36-0400 Diastolic blood pressure 72 mm[Hg] Javad Furlong DO Work Phone: [facility] 10-26-2023 21:36-0400 Heart rate 64 /min Javad Furlong DO Work Phone: [facility] 10-26-2023 21:36-0400 Respiratory rate 16 /min Javad Furlong DO Work Phone: [facility] 10-26-2023 21:36-0400 SaO2% (BldA) [Mass fraction] 96 % Javad Furlong DO Work Phone: [facility] 10-26-2023 21:36-0400 Systolic blood pressure 135 mm[Hg] Javad Furlong DO Work Phone: [facility] 09-14-2023 17:14-0400 Body temperature 98.1 [degF] Javad Furlong DO Work Phone: [facility] 09-14-2023 17:14-0400 Diastolic blood pressure 86 mm[Hg] Javad Furlong DO Work Phone: [facility] 09-14-2023 17:14-0400 Heart rate 58 /min Javad Furlong DO Work Phone: [facility] 09-14-2023 17:14-0400 Respiratory rate 17 /min Javad Furlong DO Work Phone: [facility] 09-14-2023 17:14-0400 SaO2% (BldA) [Mass fraction] 97 % Javad Furlong DO Work Phone: [facility] 09-14-2023 17:14-0400 Systolic blood pressure 138 mm[Hg] Javad Furlong DO Work Phone: [facility] 09-09-2023 17:55-0400 Body mass index (BMI) [Ratio] 28.13 kg/m2 Javad Furlong DO Work Phone: [facility] 09-09-2023 17:55-0400 Body weight 81.47 kg Javad Furlong DO Work Phone: [facility] 09-09-2023 17:55-0400 Diastolic blood pressure 71 mm[Hg] Javad Furlong DO Work Phone: [facility] 09-09-2023 17:55-0400 Systolic blood pressure 144 mm[Hg] Javad Furlong DO Work Phone: [facility] 09-02-2023 17:00-0400 Body temperature 97.9 [degF] Javad Furlong DO Work Phone: [facility] 09-02-2023 17:00-0400 Diastolic blood pressure 89 mm[Hg] Javad Furlong DO Work Phone: [facility] 09-02-2023 17:00-0400 Heart rate 50 /min Javad Furlong DO Work Phone: [facility] 09-02-2023 17:00-0400 Respiratory rate 18 /min Javad Furlong DO Work Phone: [facility] 09-02-2023 17:00-0400 SaO2% (BldA) [Mass fraction] 96 % Javad Furlong DO Work Phone: [facility] 09-02-2023 17:00-0400 Systolic blood pressure 144 mm[Hg] Javad Furlong DO Work Phone: [facility] 08-05-2023 17:02-0400 Body height 170.2 cm Javad Furlong DO Work Phone: [facility] 08-05-2023 17:02-0400 Body mass index (BMI) [Ratio] 28.51 kg/m2 Javad Furlong DO Work Phone: [facility] 08-05-2023 17:02-0400 Body temperature 97.7 [degF] Javad Furlong DO Work Phone: [facility] 08-05-2023 17:02-0400 Body weight 82.56 kg Javad Furlong DO Work Phone: [facility] 08-05-2023 17:02-0400 Diastolic blood pressure 62 mm[Hg] [facility] 08-05-[facility]23 17:02-0400 Heart rate 60 /min J[facility] Fur[facility] 08-05-2023 17:02-0400 Respiratory rate 17 /min [facility] Furlong DO [facility] 08-05-2023 17:02-0400 SaO2% (BldA) [Mass fraction] 99 % Javad Furlong DO [facility] 08-05-2023 17:02-0400 Systolic blood pressure 110 mm[Hg] Javad Furlong DO [facility] 06-17-2023 10:00-0400 Body temperature 96.8 [degF] Dena Silva MD Work Phone: [employer] 06-17-2023 10:00-0400 Diastolic blood pressure 69 mm[Hg] Dena Silva MD Work Phone: [employer] 06-17-2023 10:00-0400 Heart rate 75 /min Dena Silva MD Work Phone: [employer] 06-17-2023 10:00-0400 Respiratory rate 17 /min Dena Silva MD Work Phone: [employer] 06-17-2023 10:00-0400 SaO2% (BldA) [Mass fraction] 98 % Dena Silva MD Work Phone: [employer] 06-17-2023 10:00-0400 Systolic blood pressure 124 mm[Hg] Dena Silva MD Work Phone: [employer] 06-16-2023 12:03-0400 Body height 172.7 cm Dena Silva MD Work Phone: [employer] 06-16-2023 12:03-0400 Body mass index (BMI) [Ratio] 27.83 kg/m2 Dena Silva MD Work Phone: [facility] [employer] 06-16-2023 12:03-0400 Body weight 83.01 kg Dena Silva MD Work Phone: [facility] [employer] Encounters Encounter Date Encounter Type Care Provider Facility Start: 10-22-2024 [place] Start: 09-14-2024 End: 09-14-2024 ambulatory Javad Rodriguez DO Work Phone: [facility] Comment on above: 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, unspecified dementia severity (CMS-HCC) (Primary Dx); 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 (CMS-HCC); Recurrent falls; Neurogenic orthostatic hypotension (CMS-HCC) Start: 08-10-2024 End: 08-19-2024 Continuing Care Javad Rodriguez DO Work Phone: [facility] Comment on above: 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, unspecified dementia severity (CMS-HCC) (Primary Dx); 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 (CMS-HCC); Recurrent major depressive disorder, in partial remission Start: 08-08-2024 End: 08-08-2024 ambulatory JAVAD RODRIGUEZ [facility] Start: 08-06-2024 End: 08-06-2024 Lab Drop off Tariq CHAPPELL [facility] Start: 08-06-2024 End: 08-06-2024 ambulatory Tariq CHAPPELL [place] Start: 08-06-2024 End: 08-06-2024 Patient encounter procedure Tariq CHAPPELL [facility] Start: 07-19-2024 ambulatory Tariq CHAPPELL Facility :[facility] Start: 07-13-2024 End: 07-23-2024 ambulatory Javad Mccormickng DO Work Phone: [facility] Comment on above: 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, unspecified dementia severity (CMS-HCC) (Primary Dx); Recurrent falls; Skin tear of right elbow without complication, subsequent encounter; Impaired gait Start: 06-08-2024 End: 06-15-2024 ambulatory Tara Lim [employer] Work Phone: [facility] Comment on above: Fall, initial encoun ter (Primary Dx); 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 (CMS-HCC) Start: 05-25-2024 End: 05-28-2024 ambulatory Javad Mccormickng DO Work Phone: [facility] Comment on above: 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 (CMS-HCC) (Primary Dx); Recurrent falls; Impaired gait; Neurogenic orthostatic hypotension (CMS-HCC) Start: 05-11-2024 ambulatory [facility] Start: 05-11-2024 End: 05-11-2024 Evaluation and management of inpatient [facility] Start: 04-27-2024 End: 04-29-2024 ambulatory Javad Apodacalong DO Work Phone: [facility] Comment on above: Parkinson's disease without dyskinesia or fluctuating manifestations (CMS-HCC) (Primary Dx); Lewy body dementia with psychotic disturbance, unspecified dementia severity (CMS-HCC); Neurogenic orthostatic hypotension (CMS-HCC); Impaired gait Start: 03-20-2024 End: 03-31-2024 ambulatory Javad Apodacalong DO Work Phone: [facility] Comment on above: 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, unspecified dementia severity (CMS-HCC) (Primary Dx); Parkinson's disease without dyskinesia or fluctuating manifestations (CMS-HCC); Anxiety; Neurogenic orthostatic hypotension (CMS-HCC) Start: 02-24-2024 End: 02-24-2024 ambulatory Javad Rodriguez DO Work Phone: [facility] Comment on above: 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, unspecified dementia severity (CMS-HCC) (Primary Dx); Impaired gait; Recurrent falls; Laceration of scalp without foreign body, subsequent encounter Start: 02-10-2024 End: 02-10-2024 ambulatory Javad Rodriguez [employer] Work Phone: [facility] Comment on above: Parkinson's disease without dyskinesia or fluctuating manifestations ([facility]-H[facility]) (Primary Dx); Anxiety; Depression, unspecified depression type Start: 01-27-2024 End: 01-27-2024 ambulatory Javad Rodriguez [employer] Work Phone: [facility] Comment on above: Late onset Alzheimer 's dementia with anxiety, unspecified dementia severity (CMS-HCC) (Primary Dx); Parkinson's disease without dyskinesia or fluctuating manifestations ([facility]-HCC); Gastroesophageal reflux disease, unspecified whether esophagitis present; Hypotension, unspecified hypotension type; Primary hypertension Start: 12-23-2023 End: 12-23-2023 ambulatory Javad Rodriguez [employer] Work Phone: [facility] Comment on above: Late onset Alzheimer 's dementia with anxiety, unspecified dementia severity (CMS-HCC) (Primary Dx); Parkinson's disease without dyskinesia or fluctuating manifestations ([facility]-HCC); Anxiety; Impaired gait; Contusion of scalp, subsequent encounter Start: 11-04-2023 End: 11-04-2023 ambulatory Javad Rodriguez [employer] Work Phone: [facility] Comment on above: COVID-19 (Primary Dx ); Type 2 diabetes mellitus with diabetic neuropathy, with long-term current use of insulin (CMS-HCC); Late onset Alzheimer's dementia with anxiety, unspecified dementia severity (CMS-HCC); Primary hypertension; Low serum total protein level Start: 10-26-2023 End: 11-17-2023 ambulatory Javad Rodriguez DO Work Phone: [facility] Comment on above: Parkinson's disease without dyskinesia or fluctuating manifestations ([facility]-HCC) (Primary Dx); Laceration of scalp, subsequent encounter; Type 2 diabetes mellitus with diabetic neuropathy, with long-term current use of insulin ([facility]-HCC) Start: 09-20-2023 End: 10-02-2023 ambulatory Javad Rodriguez DO Work Phone: [facility] Comment on above: Late onset Alzheimer 's dementia with anxiety, unspecified dementia severity (CMS-HCC) (Primary Dx); Urinary incontinence, unspecified type; Anxiety Start: 09-14-2023 End: 09-14-2023 ambulatory Javad Rodriguez DO Work Phone: [facility] Comment on above: Type 2 diabetes sree itus with complication, with long-term current use of insulin ([facility]-HCC) (Primary Dx); Low HDL (under 40); Late onset Alzheimer's dementia with anxiety, unspecified dementia severity (CMS-HCC); Hyperlipidemia, unspecified hyperlipidemia type; Low serum total protein level Start: 09-09-2023 End: 09-09-2023 ambulatory Javad Rodriguez DO Work Phone: [facility] Comment on above: Parkinson's disease without dyskinesia or fluctuating manifestations (CMS-HCC) (Primary Dx); Hypotension, unspecified hypotension type; Urinary incontinence, unspecified type; Primary hypertension Start: 09-02-2023 End: 09-02-2023 ambulatory Javad Rodriguez DO Work Phone: [facility] Comment on above: Type 2 diabetes sree itus with complication, with long-term current use of insulin ([facility]-HCC) (Primary Dx); Contusion of left buttock; Late onset Alzheimer's dementia with anxiety, unspecified dementia severity (CMS-HCC); Parkinson's disease without dyskinesia or fluctuating manifestations (CMS-HCC); Hyperlipidemia, unspecified hyperlipidemia type Start: 08-05-2023 End: 08-05-2023 ambulatory Javad Rodriguez DO Work Phone: [facility] Comment on above: Parkinson's disease without dyskinesia or fluctuating manifestations (CMS-HCC) (Primary Dx); Late onset Alzheimer's dementia with other behavioral disturbance, unspecified dementia severity (CMS-HCC); Depression, unspecified depression type; Type 2 diabetes mellitus with diabetic neuropathy, with long-term current use of insulin (CMS-HCC) Start: 07-18-2023 End: 08-04-2023 Evaluation and management of inpatient [facility] Start: 06-17-2023 End: 06-19-2023 Evaluation and management of inpatient [facility] Stress Lab 2 [facility] Non-Invasive Cardiology Comment on above: Arrived Start: 06-16-2023 End: 06-17-2023 Evaluation and management of inpatient Dena Silva MD Work Phone: [facility] Comment on above: Near syncope (Primar y Dx); Pre-syncope; Parkinson's disease without dyskinesia or fluctuating manifestations (HCC) Start: 04-27-2023 Telephone encounter Chantellsarai Starr denny DO Work [facility] Start: 01-25-2023 ambulatory MARAL [facility] Start: 01-18-2023 End: 01-19-2023 ambulatory [facility] Start: 10-26-2022 [facility] Start: 10-07-2022 End: 10-10-2022 ambulatory [facility] Start: 10-04-2022 End: 10-05-2022 ambulatory [facility] Start: 09-07-2022 End: 09-10-2022 ambulatory [facility] Start: 09-07-2022 End: 09-09-2022 Subsequent hospital visit by physician Vale Evangelista MD Work Phone: [facility] Comment on above: Cognitive impairment Start: 08-26-2022 End: 08-29-2022 ambulatory [facility] Start: 08-11-2022 End: 08-12-2022 ambulatory MAIRA MORALES [facility] Start: 08-11-2022 End: 08-11-2022 Subsequent hospital visit [...] Subsequent hospital visit by physician Nandini Rizzo PIPER HELPER [facility] Start: 01-01-2022 End: 01-04-2022 ambulatory [facility] Start: 01-01-2022 End: 01-03-2022 Subsequent hospital visit by physician Katherine Mri [facility] MRI Comment on above: Tremors of nervous s ystem; Cervical arthritis; Gait abnormality Start: 10-30-2021 End: 11-01-2021 [facility] Comment on above: Tremors of nervous s ystem Start: 10-29-2021 End: 10-29-2021 Subsequent hospital visit by physician Dandre Swanson MD Work Phone: [facility] Comment on above: Tremors of nervous s ystem; Type 2 diabetes mellitus without complication, with long-term current use of insulin (HCC); Other hyperlipidemia Procedures Date Procedure Procedure Detail Performing Clinician Start: 05-11-2024 Adult depression screening assessment Javad Apodacaheather DO Work Phone: Start: 06-17-2023 Electroencephalogram w/rec awake&asleep Josef Farah [...] B12 & FOLATE Maira VAZQUEZ RN - MVA REACTOR OPERATOR HEAD Work Phone: Start: 01-01-2022 Mri spinal canal cervical w/o contrast matrl Dandre Swanson MD Work Phone: Start: 10-30-2021 Radex spine cervical 2 or 3 views Dandre Swanson MD Work Phone: Start: 10-29-2021 Cyanocobalamin vitamin b-12 Dandre winter MD Work Phone: Start: 10-29-2021 Lipid panel Dandre Swanson MD Work Phone: Start: 11-04-2020 Microalbumin [Mass/volume] in Urine by Test strip Chantell Smith DO Work Phone: Start: 01-27-2018 Colonoscopy Dandre Swanson MD Work Phone: Arthroplasty of knee Tariq CHAPPELL History of repair of inguinal hernia Tariq CHAPPELL Incision of trachea Tariq CHAPPELL Plan of Treatment Date Care Activity Detail Author Start: 02-21-2034 DTaP,Tdap and Td Vaccines (2 - Td or Tdap) DTaP,Tdap and Td Vaccines (2 - Td or Tdap) [facility] Start: 04-19-2033 Screening for malign ant neoplasm of colon [facility] Start: 01-28-2028 Screening for malign ant neoplasm of colon [facility] Start: 05-25-2025 Adult BMI Screening Adult BMI Screen ing [facility] Start: 05-11-2025 Depression Screening Depression Scre ening [facility] Start: 05-11-2025 Tobacco Screening Tobacco Screening [facility] Start: 04-27-2025 Adult BMI Screening Adult BMI Screen ing [facility] Start: 03-31-2025 Adult BMI Screening Adult BMI Screen ing [facility] Start: 02-09-2025 Adult BMI Screening Adult BMI Screen ing [facility] Start: 01-26-2025 Adult BMI Screening Adult BMI Screen ing [facility] Start: 12-22-2024 Adult BMI Screening Adult BMI Screen ing [facility] Start: 12-22-2024 Tobacco Screening Tobacco Screening [facility] Start: 10-29-2024 Influenza vaccination Influenza Vacc ine [facility] Start: 10-25-2024 Adult BMI Screening Adult BMI Screen ing [facility] Start: 09-08-2024 Adult BMI Screening Adult BMI Screen ing [facility] Start: 08-04-2024 Adult BMI Screening Adult BMI Screen ing [facility] Start: 08-04-2024 Tobacco Screening Tobacco Screening [facility] Start: 06-16-2024 GFR test (Diabetes, CKD 3-4, OR last GFR 15-59) GFR test (Diabetes, CKD 3-4, OR last GFR 15-59) [facility] Start: 05-18-2024 Hemoglobin A1c measurement A1C test (Diabetic or Prediabetic) [facility] Start: 04-20-2024 Adult BMI Screening Adult BMI Screen ing [facility] Start: 04-19-2024 Tobacco Screening Tobacco Screening [facility] Start: 03-31-2024 Depression Monitoring Depression Mon itoring [facility] Start: 01-13-2024 Influenza vaccination Flu vacc ine (Season Ended) [facility] Comment on above: Postponed from 09/28 (Patient Refused) Start: 10-30-2023 COVID-19 Vaccine ( season) COVID-19 Vaccine ( season) [facility] Start: 10-30-2023 COVID-19 Vaccine ( season) COVID-19 Vaccine ( season) [facility] Start: 10-30-2023 COVID-19 Vaccine ( season) COVID-19 Vaccine ( season) [facility] Start: 10-30-2023 Influenza vaccination Influenza Vacc ine [facility] Start: 10-05-2023 Lipid panel Lipids [facility] Start: 09-09-2023 Annual Wellness Visi t (AWV) Annual Wellness Visit (AWV) [facility] Start: 09-09-2023 Depression Monitoring Depression Mon itoring [facility] Start: 09-09-2023 Hemoglobin A1c measurement A1C test (Diabetic or Prediabetic) [facility] Start: 09-08-2023 GFR test (Diabetes, CKD 3-4, OR last GFR 15-59) GFR test (Diabetes, CKD 3-4, OR last GFR 15-59) [facility] Start: 08-24-2023 End: 08-24-2023 Patient encounter procedure 08/24/2023 1:20 PM EDT Office Visit [facility] [address] [place] [address] [place] [address] [address] 3 month DM f/u [facility] Comment on above: 3 month DM f/u Start: 08-11-2023 End: 08-11-2023 Patient encounter procedure 08/11/2023 11:40 AM EDT Office Visit [facility]ist [address] [facility] [address] [place] [id number] Vale Evangelista MD [address] [facility] [address] [place], [place] [id number] 4M PT Parkinsons [facility] Comment on above: 4M PT Parkinsons Start: 02-28-2023 Annual Wellness Visi t (Medicare Advantage) Annual Wellness Visit (Medicare Advantage) [facility] Start: 01-19-2023 [facility] Start: 01-19-2023 Hemoglobin A1c measurement A1C test (Diabetic or Prediabetic) [facility] Start: 01-19-2023 Influenza vaccination [facility] Comment on above: Postponed from 09/28 (Patient Refused) Postponed from 09/28 (Patient Refused) Start: 01-19-2023 Urine screening for protein [facility] Start: 01-12-2023 End: 01-12-2023 Patient encounter procedure 01/12/2023 Office Visit [place] [address] [place] [address] [facility] Start: 12-13-2022 End: 12-13-2022 Patient encounter procedure 12/13/2022 Office Visit Neurology Vale Evangelista MD [address] [facility] [address] [place], [place] [phone] [facility] Start: 10-29-2022 COVID-19 Vaccine ( season) COVID-19 Vaccine ( season) [facility] Start: 10-29-2022 GFR test (Diabetes, CKD 3-4, OR last GFR 15-59) GFR test (Diabetes, CKD 3-4, OR last GFR 15-59) [facility] Start: 10-29-2022 Influenza vaccination Influenza Vacc ine [facility] Start: 10-29-2022 Lipid panel Lipids [facility] Start: 10-13-2022 Depression Monitoring Depression Mon itoring [facility] Start: 10-13-2022 Hemoglobin A1c measurement A1C test (Diabetic or Prediabetic) [facility] Start: 09-28-2022 Influenza vaccination Flu vaccine (# 1) [facility] Start: 09-08-2022 End: 09-08-2022 Patient encounter procedure 09/08/2022 Office Visit [place] [address] [address] [facility] Start: 08-12-2022 End: 08-12-2022 Patient encounter procedure 08/12/2022 Office Visit Neurology Vale Evangelista MD [address] [id number] [facility] Start: 05-11-2022 End: 05-11-2022 Patient encounter procedure 05/11/2022 Office Visit Neurology Maira Morales APRN - LOLITA [address] [facility] [address] [place] [address] [facility] Start: 02-24-2022 End: 02-24-2022 Patient encounter procedure 02/24/2022 Appointment Physical Therapy Kingston Quiles, PT [facility] Start: 02-17-2022 End: 02-17-2022 Patient encounter procedure 02/17/2022 Appointment Physical Therapy Kingston Quiles, PT [facility] Start: 02-15-2022 End: 02-15-2022 Patient encounter procedure 02/15/2022 Appointment Physical Therapy Prasanth Felipe, PIPER HELPER [facility] Start: 02-10-2022 End: 02-10-2022 Patient encounter procedure 02/10/2022 Appointment Physical Therapy Prasanth Felipe, RACHID [facility] Start: 02-08-2022 End: 02-08-2022 Patient encounter procedure 02/08/2022 Appointment Physical Therapy Kingston Quiles, PT [facility] Start: 01-19-2022 End: 01-19-2022 Patient encounter procedure 01/19/2022 Office Visit [place] [address] [facility] [place] [address] [place] [address] [facility] Start: 01-14-2022 End: 01-14-2022 Patient encounter procedure 01/14/2022 Office Visit Neurology Maira Morales APRN - CNP [address] [address] [facility] Start: 01-11-2022 End: 01-11-2022 Patient encounter procedure 01/11/2022 Office Visit Neurology Maira Morales APRN - CNP [address] [address] [facility] Start: 11-20-2021 Lipid panel Lipids [facility] Start: 11-04-2021 Diabetic foot examination Diabetic foot exam [facility] Start: 11-04-2021 Urine screening for protein [facility] Start: 10-29-2021 Influenza vaccination Flu vaccine (# 1) [facility] Start: 08-01-2022 Influenza vaccination Flu vaccine (# 1) [facility] Start: 06-30-2021 Annual Wellness Visi t (AWV) Annual Wellness Visit (AWV) [facility] Start: 04-26-2021 COVID-19 Vaccine (4 - Booster for Moderna series) COVID-19 Vaccine (4 - Booster for Moderna series) [facility] Start: 02-18-2021 COVID-19 Vaccine (4 - Booster for Moderna series) COVID-19 Vaccine (4 - Booster for Moderna series) [facility] Start: 02-18-2021 COVID-19 Vaccine (4 - Booster) COVID-19 Vaccine (4 - Booster) [facility] Start: 12-29-2019 Diabetic retinal exam Diabetic retin al exam [facility] Start: 12-29-2019 Glaucoma screening Diabetic retinal exam [facility] Start: 12-20-2019 Annual Wellness Visi t (AWV) Annual Wellness Visit (AWV) [facility] Start: 2014 Fall Risk Screening Fall Risk Screen [facility] Start: 2009 Respiratory Syncytia l Virus (RSV) or age 60 yrs+ (1 - 1-dose 60+ series) Respiratory Syncytial Virus (RSV) or age 60 yrs+ (1 - 1-dose 60+ series) [facility] Start: 1994 Screening for malign ant neoplasm of colon [facility] Start: 1968 DTaP,Tdap and Td Vaccines (1 - Tdap) DTaP,Tdap and Td Vaccines (1 - Tdap) [facility] Start: 1968 DTaP/Tdap/Td vaccine (1 - Tdap) DTaP/Tdap/Td vaccine (1 - Tdap) [facility] Start: 07-15-1967 Adult BMI Follow Up Plan Adult BMI Follow Up Plan [facility] Start: 07-15-1967 Diabetic foot examination Diabetic Foot Exam [facility] Start: 07-15-1967 Hepatitis C screening Hepatitis C sc reen [facility] Start: 1961 Depression Screening Depression Scre ening [facility] Start: 07-15-1955 Pneumococcal 65+ yea rs Vaccine (1 - PCV) Pneumococcal 65+ years Vaccine (1 - PCV) [facility] Start: 07-15-1955 Pneumococcal 65+ yea rs Vaccine (1 of 2 - PCV) Pneumococcal 65+ years Vaccine (1 of 2 - PCV) [facility] Start: 1949 Glaucoma screening [facility] Start: [facility] Medicare Annual Wellness Visit Medicare [facility] End: 06-23-2023 Basic Metabolic Panel w/ Reflex to MG Basic Metabolic Panel w/ Reflex to MG Lab Routine Daily for 7 Days starting 06/17/2023 until 06/23/2023, 1 completed [facility] Comment on above: Daily for 7 Days sta rting 06/17/2023 until 06/23/2023, 1 completed End: 06-21-2023 CBC W Auto Differential panel - Blood CBC with Auto Differential Lab Routine Daily for 5 Days starting 06/17/2023 until 06/21/2023, 1 completed [facility] Comment on above: Daily for 5 Days sta rting 06/17/2023 until 06/21/2023, 1 completed Cortisol Total Cortisol Total L ab Routine 06/17/2023 10:15 AM EDT [facility] Work Phone: EKG 12 Lead EKG 12 Lead ECG Routine 06/16/2023 11:19 AM EDT [facility] Glucose [Mass/volume ] in Serum or Plasma [facility] Comment on above: 4X Daily (AC & HS) u ntil discontinued starting 06/16/2023 As Needed until disc ontinued starting 06/16/2023 End: 09-07-2022 MRI BRAIN W WO CONTRAST [facility] Comment on above: 1 Occurrences starti ng 09/07/2022 until 09/07/2022 End: 06-17-2023 Nasal Cannula Oxygen Nasal Cannula Oxygen Respiratory Care Routine As Needed until discontinued starting 06/17/2023 [facility] Comment on above: As Needed until disc ontinued starting 06/17/2023 Nuclear stress test with myocardial perfusion Nuclear stress test with myocardial perfusion CV Stress/NM Stress Routine Near syncope Pre-syncope 06/17/2023 2:02 PM EDT [facility] Oxygen therapy [[facility]] Initiate Oxygen Therapy Protocol Respiratory Care Routine As Needed until discontinued starting 06/16/2023 [facility] [employer] Work Phone: Comment on above: As Needed until disc ontinued starting 06/16/2023 Immunizations Immunization Date Immunization Notes Care Provider Fa [facility] 02-22-2024 tetanus toxoid, reduced diphtheria toxoid, and acellular pertussis vaccine, adsorbed Javad Jaceng DO Work Phone: [facility] 12-06-2023 tuberculin skin test ; unspecified formulation Javad Paulielong DO Work Phone: [facility] 11-29-2023 tuberculin skin test ; unspecified formulation Javad PaulieHire-Intelligenceng DO Work Phone: [facility] 07-23-2021 zoster vaccine recombinant Nandini Rizzo PTA [facility] Work Phone: 05-12-2021 zoster vaccine recombinant Dandre Swanson MD Work Phone: [facility] 12-24-2020 COVID-19, MODERNA BL UE border, Primary or Immunocompromised, (age 12y+), IM, 100 mcg/0.5mL Dandre Swanson MD Work Phone: [facility] [employer] Work Phone: 12-24-2020 COVID-19, mRNA, LNP- S, PF, 30mcg/0.3mL Dose Javad Rodriguez DO Work Phone: [facility] 05-22-2020 COVID-19, mRNA, LNP- S, PF, 100mcg/0.5mL Dose Chantell Smith DO Work Phone: [facility] 05-22-2020 COVID-19, US Vaccine , Vaccine Unspecified Vale Evangelista MD Work Phone: [facility] 04-24-2020 COVID-19, mRNA, LNP- S, PF, 100mcg/0.5mL Dose Chantell Smith DO Work Phone: [facility] 04-24-2020 COVID19, [place] Vaccine , Vaccine Unspecified Vale Evangelista MD Work Phone: [facility] Payers Date Payer Category Payer Medicare [id number] 1.2.8 [id number] 2022 Medicare [id number] 2021 Medicare [id number] 1. [id number] 1949 Unknown [id number] 2.16.8 [id number] 1949 Unknown [id number] 2.16.8 [id number] 1949 Unknown [id number] 2.16.8 [id number] 1949 Unknown [id number] 2.16.8 [id number] 1949 Unknown [id number] 2.16. [id number] 1949 Unknown [id number] 2.16. [id number] 1949 Unknown [id number] 2.16. [id number] 1949 Unknown [id number] 2.16.8 [id number] 1949 Unknown [id number] 2.16.8 [id number] 1949 Unknown [id number] 2.16.8 [id number] 1949 Unknown [id number] 2.16. [id number] 1949 Unknown [id number] 2.16. [id number] 1949 Unknown [id number] 2.16.8 [id number] 1949 Unknown [id number] 2.16.8 [id number] 1949 Unknown [id number] 2.16. [id number] 1949 Unknown [id number] 2.16. [id number] 1949 Unknown [id number] 2.16.8 [id number] Social History Date Type Detail Facility Start: 10-20-2017 End: 05-11-2024 Tobacco smoking status [facility] Ex-smoker [email or web address] Phone: Start: 05-03-1968 End: 05-04-2015 History of tobacco use Current smoker [email or web address] Phone: Start: 05-03-1968 End: 05-04-2015 History of tobacco use Cigarette Smoker [email or web address] Phone: Start: 10-20-2017 End: 04-10-2020 Cigarettes smoked current (pack per day) - Reported 1 [facility] Start: 10-20-2017 End: 05-11-2024 Tobacco use and exposure Smokeless tobacco non-user [email or web address] Phone: Start: 10-13-2021 End: 05-11-2024 Alcohol intake Current non-drinker of alcohol (finding) [email or web address] Phone: Start: 07-07-2021 History SDOH Financial 4 [email or web address] Phone: Start: 07-07-2021 End: 09-08-2022 History SDOH Food Worry 1 [facility] Work Phone: Start: 07-01-2020 End: 09-08-2022 History SDOH Transport Med 2 [facility] Work Phone: Start: 1950 Sex Assigned At Not on file B ON [employer] Work Phone: Start: 01-19-2022 End: 06-17-2023 Alcohol intake Current drinker of alcohol (finding) [facility] Work Phone: Start: 01-14-2022 Alcohol Comment socially BON [employer] Work Phone: Start: 01-04-2022 End: 01-14-2022 Exposure to SARS-CoV-2 (event) Not sure [facility] Start: 09-08-2022 History SDOH Physica l Activity DPW 3 [facility] Start: 09-08-2022 History SDOH Physica l Activity MPS 0 [facility] Start: 09-08-2022 History SDOH Financial 5 [facility] Start: 04-10-2020 End: 06-16-2023 [facility] Utilities [employer] Has the electric, [employer], oil, or water company threatened to shut off services in your home in past 12Mo No [facility] How often to you hav e a drink containing alcohol? Never [facility] How many standard drinks containing alcohol do you have on a typical day? Patient does not drink [employer] (I/We) worried wheth er (my/our) food would run out before (I/we) got money to buy more. Never true [facility] Start: 05-03-2016 Alcohol Comment socially yearly [facility] Start: 10-01-2014 Sex Male (finding) [facility] How often to you hav e a drink containing alcohol? Monthly or less [facility] How many standard drinks containing alcohol do you have on a typical day? 1 or 2 [facility] Start: 05-11-2024 Alcohol Comment socially yearl y [facility] Start: 08-06-2024 Tobacco smoking status Never s moked tobacco (finding) [facility] Sexual Orientation [facility] NEGATED: Highlighted rowStart: THANIAF History of tobacco use Passive smoker [facility] [employer] Work Phone: Medical Equipment Procedure Code Equipment Code Equipment Origin al Text Equipment Identifier Dates 1 strip by Other route 4 times daily Test 2 times a day & as needed for symptoms of irregular blood glucose. Dispense sufficient amount for indicated testing frequency plus additional to accommodate PRN testing needs. [id number] Start: 08-16-2019 1 each by In Vit ro route 4 times daily As needed. [id number] Start: 08-16-2019 USE DIRECTED [id number] Start: 09-03-2021 1 strip by Other route 4 times daily Test 2 times a day & as needed for symptoms of irregular blood glucose. Dispense sufficient amount for indicated testing frequency plus additional to accommodate PRN testing needs. [id number] Start: 06-22-2022 100 each by Does not apply route daily [id number] Start: 06-22-2022 USE DIRECTED [id number] Start: 01-05-2023 CHECK BLOOD SUGA R TWICE DAILY [id number] Start: 05-31-2023 CHECK BLOOD SUGA R TWICE DAILY [id number] Start: 05-31-2023 Brng Tib 78pdi20 mm 0d Kn Ant - [id number] Start: 05-14-2016 Brng Tib 79/83mm x11mm 3d Std - [id number] Start: 10-22-2016 Cement Bn Pal[place] s Radpq 40g Rpl [id number] - [id number] Start: 05-14-2016 Cement Bn Pal[place] s Radpq 40g Rpl [id number] - [id number] Start: 10-22-2016 Cmpt Fem Kn Lt 7 0mm Cr Cmnt - [id number] Start: 05-14-2016 Ty Tib As Mx 79m m Intlk Cocr - [id number] Start: 05-14-2016 Cmpt Ptlr Thn 34 mm 3 Pg Kn Ser - [id number] Start: 05-14-2016 Cmpt Ptlr Thn 8. 6mm 37mm 3 Pg - [id number] Start: 10-22-2016 Cmpt Fem Kn Rt 7 0mm Cr Cmnt - [id number] Start: 10-22-2016 Ty Tib 79mm Cocr Kn I Beam - [id number] Start: 10-22-2016 Clinical Notes 02-17-2022 to 09-14-2024 Javad Rodriguez, DO - 09/14/2024 5:30 PM EDTJavad Rodriguez, DO - 08/10/2024 11:59 PM EDVipulJavad Rodriguez, DO - 07/13/2024 11:59 PM Luciano Lim APRN- MVA REACTOR OPERATOR HEAD - 06/08/2024 11:59 PM EDTAttachments Note Date & Type Note Facility 09-14-2024 History of Present illness Narrative Patient Name: Susie Boyce Date of : 1950 Date of Service: 09/14/2024 Facility: [facility] Type of Visit: Subsequent Visit Subjective Susie Boyce is a 74 y.o. male seen today at senior living facility for regular visit. James had a non injury fall about 10 days ago. Was found on the floor. Did sustain a skin tear after bumping his arm few days later. That is healed. He is currently on antibiotic technician terminal and repeater for an epididymitis. Allergies: Penicillins, Gemtuzumab ozogamicin, Metformin, Simvastatin, and Vibegron Code Status: [facility] BP 142/56 Pulse 64 Temp 36.3 C (97.4 F) Resp 20 Wt 76.7 kg (169 lb 3.2 oz) SpO2 99% BMI 25.73 kg/m Physical Exam Vitals reviewed. Constitutional: General: He is not in acute distress. Appearance: He is overweight. He is not ill-appearing. Comments: He was in his room in a wheelchair HENT: Head: Normocephalic. Cardiovascular: Rate and Rhythm: [...] alert. He is disoriented. Gait: Gait abnormal (ambulating in a wheelchair). Psychiatric: Attention and Perception: Attention normal. Mood and Affect: Mood and affect normal. Speech: Speech normal. Behavior: Behavior normal. Behavior is cooperative. Cognition and Memory: Cognition is impaired. Assessment/Plan Summary / Assessment / Plan 1. Lewy body dementia with psychotic disturbance, unspecified dementia severity (CMS-HCC) 2. 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 (CMS-HCC) 3. Recurrent falls 4. Neurogenic orthostatic hypotension (CMS-HCC) Medically stable. Continue current regimen. All medications reviewed and are medically necessary. ELECTRONICALLY SIGNED BY: Javad Rodriguez DO documented in this encounter [facility] 08-10-2024 History of Present illness Narrative Patient Name: Susie Boyce Date of : 1950 Date of Service: 08/10/2024 Facility: [facility] Type of Visit: Subsequent Visit Subjective Susie Boyce is a 74 y.o. male seen today at senior living facility for regular visit. New problems reported by staff or patient. Allergies: Penicillins, Gemtuzumab ozogamicin, Metformin, Simvastatin, and Vibegron Code Status: [facility] BP 110/66 Pulse 64 Temp 36.7 C (98.1 F) Resp 20 Wt 77.2 kg (170 lb 3.2 oz) SpO2 98% BMI 25.88 kg/m Physical Exam Vitals reviewed. Constitutional: General: [...] alert. He is disoriented. Gait: Gait abnormal (ambulating in unit in a wheelchair). Psychiatric: Attention and Perception: Attention normal. Mood and Affect: Mood and affect normal. Speech: Speech normal. Behavior: Behavior normal. Behavior is cooperative. Cognition and Memory: Cognition is impaired. Summary / Assessment / Plan 1. Lewy body dementia with psychotic disturbance, unspecified dementia severity ([facility]) 2. 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 Recurrent major depressive disorder, in partial remission Medically stable. Continue current regimen. All medications reviewed and are medically necessary. ELECTRONICALLY SIGNED BY: Javad Rodriguez DO documented in this encounter [facility] 08-06-2024 Hospital Discharge instructions Patient Education 08/06/2024 13:09:54 Epididymitis Epididymitis Epididymitis is inflammation or swelling of the epididymis. This is caused by an infection. The epididymis is a cord-like structure that is located along the top and back part of the testicle. It collects and stores sperm from the testicle. This condition can also cause pain and swelling of the testicle and scrotum. Symptoms usually start suddenly (acute epididymitis). Sometimes epididymitis starts gradually and lasts for a while (chronic epididymitis). Chronic epididymitis may be harder to treat. What are the causes? In men ages 20 40, this condition is usually caused by a bacterial infection or a sexually transmitted infection (STI), such as gonorrhea or chlamydia. In men 40 and older, this condition is usually caused by bacteria from a urinary blockage or from abnormalities in the urinary system. These can result from: Having a tube placed into the bladder (urinary catheter). Having an enlarged or inflamed prostate gland. Having recently had urinary tract surgery. Having a problem with a backward flow of urine (retrograde). In men who have a condition that weakens the body's defense system (immune system), such as human immunodeficiency virus (HIV), this condition can be caused by: Other bacteria, including tuberculosis and syphilis. Viruses. Fungi. Sometimes this condition occurs without infection. This may happen because of trauma or repetitive activities such as sports. What increases the risk? You are more likely to develop this condition if you have: Unprotected sex with more than one partner. Anal sex. Had recent surgery. A urinary catheter. Urinary problems. A suppressed immune system. What are the signs or symptoms? This condition usually begins suddenly with chills, fever, and pain behind the scrotum and in the testicle. Other symptoms include: Swelling of the scrotum, testicle, or both. Pain when ejaculating or urinating. Pain in the back or abdomen. Nausea. Itching and discharge from the penis. A frequent need to pass urine. Redness, increased warmth, and tenderness of the scrotum. How is this diagnosed? Your health care provider can diagnose this condition based on your symptoms and medical history. Your health care provider will also do a physical exam to check your scrotum and testicle for swelling, pain, and redness. You may also have other tests, including: Testing of discharge from the penis. Testing your urine for infections, such as STIs. Ultrasound to check for blood flow and [...] nonbacterial epididymitis, you may be treated with: Rest. Elevation of the scrotum. Pain medicines. Anti-inflammatory medicines. Surgery may be needed if: You have pus buildup in the scrotum (abscess). You have epididymitis that has not responded to other treatments. Follow these instructions at home: Medicines Take pcbd-qlv-xeymzqi and prescription medicines only as told by your health care provider. If you were prescribed an antibiotic medicine, take it as told by your health care provider. Do not stop taking the antibiotic even if your condition improves. Sexual activity If your epididymitis was caused by an STI, avoid sexual activity until your treatment is complete. Inform your sexual partner or partners if you test positive for an STI. They may need to be treated. Do not engage in sexual activity with your partner or partners until their treatment is completed. Managing pain and swelling If directed, raise (elevate) your scrotum and apply ice. To do this: ?Put ice in a plastic bag. ?Place a small towel or pillow between your legs. ?Rest your scrotum on the pillow or towel. ?Place another towel between your skin and the plastic bag. ?Leave the ice on for 20 minutes, 2 3 times a day. ?Remove the ice if your skin turns bright red. This is very important. If you cannot feel pain, heat, or cold, you have a greater risk of damage to the area. Keep your scrotum elevated and supported while resting. Ask your health care provider if you should wear a scrotal support, such as a jockstrap. Wear it as told by your health care provider. Try taking a sitz bath to help with discomfort. This is a warm water bath that is taken while you are sitting down. The water should come up to your hips and should cover your buttocks. Do this 3 4 times per day or as told by your health care provider. General instructions Drink enough fluid to keep your urine pale yellow. Return to your normal activities as told by your health care provider. Ask your health care provider what activities are safe for you. Keep all follow-up visits. This is important. Contact a health care provider if: You have a fever. Your pain medicine is not helping. Your pain is getting worse. Your symptoms do not improve within 3 days. Summary Epididymitis is inflammation or swelling of the epididymis. This is caused by an infection. This condition can also cause pain and swelling of the testicle and scrotum. Treatment for this condition depends on the cause. If your condition is caused by a bacterial infection, oral antibiotic medicine may be prescribed. Inform your sexual partner or partners if you test positive for an STI. They may need to be treated. Do not engage in sexual activity with your partner or partners until their treatment is completed. Contact a health care provider if your symptoms do not improve within 3 days. This information is not intended to replace advice given to you by your health care provider. Make sure you discuss any questions you have with your health care provider. Document Revised: 09/23/2021 Document Reviewed: 09/23/2021 [employer] Patient Education 2023 [employer] 08/06/2024 12:41:09 Hydrocele, Adult Hydrocele, Adult A hydrocele is a collection of fluid in the loose pouch of skin that holds the testicles (scrotum). It can occur in one or both testicles. This may happen because: The amount of fluid produced in the scrotum is not absorbed by the rest of the body. Fluid from the abdomen fills the scrotum. Normally, the testicles develop in the abdomen and then drop into the scrotum before . The tube that the testicles travel through usually closes after the testicles drop. If the tube does not close, fluid from the abdomen can fill the scrotum. This is not very common in adults. What are the causes? A hydrocele may be caused by: An injury to the scrotum. An infection. Decreased blood flow to the scrotum. Twisting of a testicle (testicular torsion). A defect. A tumor or cancer of the testicle. Sometimes, the cause is not known. What are the signs or symptoms? A hydrocele feels like a water-filled balloon. It may also feel heavy. Other symptoms include: Swelling of the scrotum. The swelling may decrease when you lie down. You may also notice more swelling at night than in the morning. This is called a communicating hydrocele, in which the fluid in the scrotum goes back into the abdominal cavity when the position of the scrotum changes. Swelling of the groin. Mild discomfort in the scrotum. Pain. This can develop if the hydrocele was caused by infection or twisting. The larger the hydrocele, the more likely you are to have pain. Swelling may also cause pain. How is this diagnosed? This condition may be diagnosed based on a physical exam and your medical history. You may also have tests, including: Imaging tests, such as an ultrasound. A transillumination test. This test takes place in a dark room where a light is placed on the skin of the scrotum. Clear liquid will not impede the light and the scrotum will be illuminated. This helps a health care provider distinguish a hydrocele from a tumor. Blood or urine tests. How is this treated? Most hydroceles go away on their own. If you have no discomfort or pain, your health care provider may suggest close monitoring of your condition until the condition goes away or symptoms develop. This is called watch and wait or watchful waiting. If treatment is needed, it may include: Treating an underlying condition. This may include taking an antibiotic medicine to treat an infection. Having surgery to stop fluid from collecting in the scrotum. Having surgery to drain the fluid. Surgery may include: ?Hydrocelectomy. For this procedure, an incision is made in the scrotum to remove the fluid. ?Needle aspiration. A needle is used to drain fluid. However, the fluid buildup will come back quickly and may lead to an infection of the scrotum. This is rarely done. Follow these instructions at home: Medicines Take cbbf-ada-zcalxzc and prescription medicines only as told by your health care provider. If you were prescribed an antibiotic medicine, take it as told by your health care provider. Do not stop taking the antibiotic even if you start to feel better. General instructions Watch the hydrocele for any changes. Keep all follow-up visits. This is important. Contact a health care provider if: You notice any changes in the hydrocele. The swelling in your scrotum or groin gets worse. The hydrocele becomes red, firm, painful, or tender to the touch. You have a fever. Get help right away if you: Develop a lot of pain or your pain becomes worse. Have chills. Have a high fever. Summary A hydrocele is a collection of fluid in the loose pouch of skin that holds the testicles (scrotum). A hydrocele can cause swelling, discomfort, and pain. In adults, the cause of a hydrocele may not be known. However, it is sometimes caused by an infection or the twisting of a testicle. Hydroceles often go away on their own. If a hydrocele causes pain, treating the underlying cause may be needed to ease the pain. This information is not intended to replace advice given to you by your health care provider. Make sure you discuss any questions you have with your health care provider. Document Revised: 10/01/2021 Document Reviewed: 10/01/2021 [employer] Patient Education 2023 [employer] Follow Up Care 07/19/2024 12:58:50 With:TA REYES, Tariq Siddiqi, URL Address: [facility] [address], [place] [address]- When: Unknown [facility] 08-06-2024 Evaluation + Plan note Diagnostic Tests PendingUrine Culture 08/06/24 [facility] 08-06-2024 Note Patient Education Urology Epididymitis Epididymitis is inflammation or swelling of the epididymis. This is caused by an infection. The epididymis is a cord-like structure that is located along the top and back part of the testicle. It collects and stores sperm from the testicle. This condition can also cause pain and swelling of the testicle and scrotum. Symptoms usually start suddenly (acute epididymitis). Sometimes epididymitis starts gradually and lasts for a while (chronic epididymitis). Chronic epididymitis may be harder to treat. What are the causes? In men ages 20?40, this condition is usually caused by a [...] these instructions at home: Medicines ??? Take zjgr-wlk-aibpqmy and prescription medicines only as told by your health care provider. ??? If you were prescribed an antibiotic medicine, take it as told by your health care provider. Do not stop taking the antibiotic even if your [...] scrotum and apply ice. To do this: ? Put ice in a plastic bag. ? Place a small towel or pillow between your legs. ? Rest your scrotum on the pillow or towel. ? Place another towel between your skin and the plastic bag. ? Leave the ice on for 20 minutes, 2?3 times a day. ? Remove the ice if your skin turns [...] and should cover your buttocks. Do this 3?4 times per day or as told by your heal (more content not included)... [facility] 07-13-2024 History of Present illness Narrative Patient Name: Susie Boyce Date of : 1950 Date of Service: 07/13/2024 Facility: [facility] Type of Visit: Subsequent Visit Subjective Susie Boyce is a 74 y.o. male seen today at senior living facility for regular visit. Susie had a fall on July 07. He had a skin tear on his right upper arm, abrasion on head and bruise on left hip. He doesn't recall the fall. He wants to go home. He wants my ok and his son will come and get him. Allergies: Penicillins, Gemtuzumab ozogamicin, Metformin, Simvastatin, and Vibegron Code Status: [facility] BP 134/73 Pulse 59 Temp 36.5 C (97.7 F) Resp 20 Wt 76.7 kg (169 lb 3.2 oz) SpO2 96% BMI 25.73 kg/m Physical Exam Vitals reviewed. Exam conducted with a city wellness coordinator present (Delvis Marcus MS 3). Constitutional: General: He is not in acute distress. Appearance: He is overweight. He is not ill-appearing. HENT: Head: Normocephalic. Cardiovascular: Rate and Rhythm: Normal rate and regular rhythm. Pulses: Normal pulses. Heart sounds: Normal heart sounds. No murmur heard. Pulmonary: Effort: Pulmonary effort is normal. No respiratory distress. Breath sounds: Normal breath sounds. No wheezing, rhonchi or rales. Musculoskeletal: Cervical back: Neck supple. Right lower leg: No edema. Left lower leg: No edema. Skin: Comments: Healing abrasion and skin tear Neurological: General: No focal deficit present. Mental Status: He is alert. He is disoriented. Gait: Gait abnormal (ambulating in unit in a wheelchair). Psychiatric: Attention and Perception: Attention normal. Mood and Affect: Mood and affect normal. Speech: Speech normal. Behavior: Behavior normal. Behavior is cooperative. Cognition and Memory: Cognition is impaired. Judgment: Judgment normal. Summary / Assessment / Plan 1. Lewy body dementia with psychotic disturbance, unspecified dementia severity (CMS-HCC) 2. Recurrent falls 3. Skin tear of right elbow without complication, subsequent encounter 4. Impaired gait Patient encouraged to use call light. He has poor insight thinking he can go home. He needs assistance with ADLs and IADLs. Monitor sights for signs of infection. Continue other orders as before. All medications reviewed and are medically necessary. ELECTRONICALLY SIGNED BY: Javad Rodriguez DO documented in this encounter [facility] 06-08-2024 History of Present illness Narrative Images from the original note were not included. Patient Name: Susie Boyce Date of : 1950 Date of Service: 06/08/24, covering for Dr. Rodriguez Facility: [place], [place] Type of Visit: Acute Visit Subjective Susie Boyce is a 73 y.o. male seen today at senior living facility for No chief complaint on file. . HPI Bedside nurse ask that I see pt after fall. Nurse states he tried to pull up his pants and fell against heating register in room and slid down his back to floor. Pt confirms this story. Pt is sitting in wheelchair with bare feet in room upon exam. He denies being dizzy before fall or hitting his head or losing consciousness. Pt has h/o frequent falls according to nurse. She also states his BG was 334 after eating cookies earlier today. She did not hold his midodrine at request of Dr. Rodriguez - his systolic BP was in 140s but has h/o Parkinson's. Past Medical History: Diagnosis Date AAA (abdominal aortic aneurysm) [place] Alzheimer's disease [place] Anxiety Arthritis generalized Dental disease crowns Depression Diabetes mellitus type 2, controlled ([facility]) on oral and insulin, checks sugars twice daily Fall 05/11/2024 HTN (hypertension) Hydrocele in adult Left Hyperlipidemia Inguinal hernia Left Inguinal Neurocognitive disorder with Lewy bodies ([facility]) Parkinsonism ([facility]) PONV (postoperative nausea and vomiting) Skin cancer Visual impairment WEARS GLASSES Past Surgical History: Procedure Laterality Date CLOSURE MOHS NASAL ALA LEFT Left 12/19/2017 Performed by Pat Bay MD at [facility] COLONOSCOPY DIAGNOSTIC / SCREENING N/A 04/19/2023 Performed by Andrzej Short MD at [facility] ESOPHAGOGASTRODUODENOSCOPY BIOPSY N/A 04/18/2023 Performed by Andrzej Short MD at [facility] HYDROCELE EXCISION / REPAIR 1969' INGUINAL HERNIA REPAIR Left x2 Inguinal JOINT REPLACEMENT Left KNEE SURGERY Bilateral scope REPLACMENT TOTAL JOINT KNEE Right 10/22/2016 Performed by Eduardo Hennessy MD at [facility] REPLACMENT TOTAL JOINT KNEE Left 05/14/2016 Performed by Derrek Arshad MD at [facility] TONSIL SURGERY childhood TRACHEOSTOMY CLOSURE 1951 TRACHEOSTOMY TUBE PLACEMENT 1951 Family History Problem Relation Age of Onset Anesthesia problems Neg Hx Current Outpatient Medications Medication Sig Dispense Refill atorvastatin (LIPITOR) 40 mg tablet Take 1 tablet (40 mg total) by mouth See Admin Instructions. THREE TIMES A WEEK (m, w, f) carbidopa-levodopa (SINEMET) 25-250 mg per tablet Take 1 tablet by mouth in the morning and 1 tablet at noon and 1 tablet in the evening and 1 tablet before bedtime. cyanocobalamin (vitamin B-12) 100 MCG tablet Take 1 tablet (100 mcg total) by mouth in the morning. donepeziL (ARICEPT) 10 mg tablet Take 2 tablets (20 mg total) by mouth daily. FLUoxetine (PROzac) 20 mg capsule Take 3 capsules (60 mg total) by mouth every morning before breakfast Indications: Anxiety. insulin detemir U-100 (LEVEMIR FLEXPEN) 100 unit/mL (3 mL) insulin pen Inject 20 Units under the skin nightly. insulin lispro (HumaLOG U-100 Insulin) 100 unit/mL injection Inject under the skin 4 (four) times a day before meals and nightly. 201-250= 2 units 251-300= 4 units 301-350= 6 units 351-400= 8 units Notify MD less than 60 or greater than 400 melatonin (CIRCADIN) tablet Take 1 tablet (3 mg total) by mouth daily. memantine (NAMENDA) 5 mg tablet Take 1 tablet (5 mg total) by mouth daily. midodrine (PROAMATINE) 10 mg tablet Take 1 tablet (10 mg total) by mouth 3 (three) times a day. pantoprazole (PROTONIX) 20 mg EC tablet Take 1 tablet (20 mg total) by mouth every morning before breakfast. sAXagliptin (ONGLYZA) 5 mg tablet Take 1 tablet (5 mg total) by mouth daily. No current facility-administered medications for this visit. Allergies: Penicillins, Gemtuzumab ozogamicin, Metformin, Simvastatin, and Vibegron Code Status: [facility] The following portions of the patient's history were reviewed and updated as appropriate: allergies and problem list. Review of Systems Respiratory: Negative. Cardiovascular: Negative. Musculoskeletal: Positive for gait problem. Skin: Positive for wound. Neurological: Positive for weakness and light-headedness. Psychiatric/Behavioral: Positive for confusion. Objective There were no vitals taken for this visit. Physical Exam Vitals reviewed. HENT: Head: Normocephalic and atraumatic. Cardiovascular: Rate and Rhythm: Regular rhythm. Bradycardia present. Heart sounds: Normal heart sounds. Pulmonary: Effort: Pulmonary effort is normal. Breath sounds: Normal breath sounds. Abdominal: General: Bowel sounds are normal. Palpations: Abdomen is soft. Tenderness: There is no abdominal tenderness. Musculoskeletal: Right lower leg: No edema. Left lower leg: No edema. Skin: General: Skin is warm. Findings: Laceration (to areas marked on back and right buttocks without significant surrounding erythema, abnormal drainage swelling or warmth) present. Neurological: Mental Status: He is alert. Psychiatric: Mood and Affect: Mood normal. Behavior: Behavior normal. Cognition and Memory: Cognition is impaired. Judgment: Judgment is impulsive. Assessment/Plan Summary / Assessment / Plan 1. Fall, initial encounter 2. 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 ([facility]) No orders of the defined types were placed in this encounter. Continue daily dressing changes to lacerations from fall with non-adherent dressings. Wash with soap and water. They do not appear to need sutures. Pt reminded to call if he wants to get up and wait for help. He should wear non-slip socks or slippers. Change positions slowly. Do not hold midodrine. There are no Patient Instructions on file for this visit. ELECTRONICALLY SIGNED BY: JIM ROJO APRN-CNP 06/15/242050 documented in this encounter [facility] 05-25-2024 History of Present illness Narrative Patient Name: Susie Boyce Date of : 1950 Date of Service: 05/25/2024 Facility: [facility] Type of Visit: Subsequent Visit Subjective Susie Boyce is a 73 y.o. male seen today at senior living facility for monthly regular visit. No new problems reported by staff or patient. Allergies: Penicillins, Gemtuzumab ozogamicin, Metformin, Simvastatin, and Vibegron Code Status: [facility] Objective BP 127/63 Pulse 54 Temp 36.3 C (97.3 F) Resp 18 Wt 77.4 kg (170 lb 9.6 oz) SpO2 99% BMI 25.94 kg/m Physical Exam Vitals reviewed. Exam conducted with a city wellness coordinator present (Cruz As[place] MS 3). Constitutional: General: He is not in acute distress. Appearance: He is overweight. He is not ill-appearing. HENT: Head: Normocephalic. Cardiovascular: Rate and Rhythm: Normal rate and regular rhythm. Pulses: Normal pulses. Heart sounds: Normal heart sounds. No murmur heard. Pulmonary: Effort: Pulmonary effort is normal. No respiratory distress. Breath sounds: Normal breath sounds. No wheezing, rhonchi or rales. Musculoskeletal: Cervical back: Neck supple. Right lower leg: No edema. Left lower leg: No edema. Neurological: General: No focal deficit present. Mental Status: He is alert. He is disoriented. Gait: Gait abnormal (ambulating in a wheelchair). Psychiatric: Attention and Perception: Attention normal. Mood and Affect: Mood and affect normal. Speech: Speech normal. Behavior: Behavior normal. Behavior is cooperative. Cognition and Memory: Cognition is impaired. Judgment: Judgment normal. Assessment/Plan Summary / Assessment / Plan 1. 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 (CMS-HCC) 2. Recurrent falls 3. Impaired gait 4. Neurogenic orthostatic hypotension (CMS-HCC) Medically stable. Continue current regimen. All medications reviewed and are medically necessary. ELECTRONICALLY SIGNED BY: Javad Rodriguez DO documented in this encounter [facility] 04-27-2024 History of Present illness Narrative Patient Name: Susie Boyce Date of : 1950 Date of Service: 04/27/2024 Facility: [facility] Type of Visit: Subsequent Visit Subjective Susie Boyce is a 73 y.o. male seen today at senior living facility for monthly visit. No new problems reported by staff or patient. Nuplazid was stopped by Psychiatry [place]AG[place]. He did have a couple episodes of behaviors since that time. He has been assessing on his laundry and was found 1/2 naked in his room. Allergies: Penicillins and Simvastatin Code Status: [facility] BP 119/62 Pulse 66 Temp 36.6 C [...] dementia severity (CMS-HCC) 3. Neurogenic orthostatic hypotension (CMS-[facility]) 4. Impaired gait See how he does off Nuplazid. Follow up with Psychiatry For further management. Continue current regimen. All medications reviewed and are medically necessary. ELECTRONICALLY SIGNED BY: Javad Rodriguez DO [facility] History of Present illness Narrative Patient Name: Susie Boyce Date of : 1950 Date of Service: 03/20/2024 Facility: [facility] Type of Visit: Acute Visit Subjective Susie Boyce is a 73 y.o. male seen today at senior living facility for problem visit. Nurses report low blood pressure. He has not had any recent falls. Patient denies problems. No recent delusions since starting Nuplazid. Allergies: Penicillins and Simvastatin Code Status: [facility] BP 97/51 Pulse 53 Temp 36.6 C [...] are medically necessary. ELECTRONICALLY SIGNED BY: Javad Rodriguez DO documented in this encounter [facility] 02-24-2024 History of Present illness Narrative Patient Name: Susie Boyce Date of : 1950 Date of Service: 02/24/2024 Facility: [facility] Type of Visit: Acute Visit Subjective Susie Boyce is a 73 y.o. male seen today at senior living facility for problem visit. James continues with [...] son had and wanted to go to [place] to see him. Allergies: Penicillins and Simvastatin Code Status: [facility] BP 158/88 Pulse 62 Temp 36.5 C [...] Comments: He said his daughter sent him [employer] Summary / Assessment / Plan 1. Lewy [...] are medically necessary. ELECTRONICALLY SIGNED BY: Javad Rodriguez DO [facility] History of Present illness Narrative Patient Name: Susie Boyce Date of : 1950 Date of Service: 02/10/2024 Facility: [facility] Type of Visit: Acute Visit Subjective Susie Boyce is a 73 y.o. male seen today at senior living facility for problem visit. James continues with behavioral problems. He called 911 yesterday and told the police he was being held against his will. He was upset with his because he said that she didn't RSVP for the family [place] and that he was going to make chicken noodle soup. He gets agitated easily. He is on buspirone 5mg BID for about 6 weeks but doesn't seem to be helping. He has continued to fall and is now in a wheelchair. He didn't have any serious injuries. Allergies: Penicillins and Simvastatin Code Status: [facility] Wt 77.9 kg (171 lb 12.8 [...] Comments: He said his daughter sent him cookies Summary / Assessment / Plan 1. Parkinson's [...] are medically necessary. ELECTRONICALLY SIGNED BY: Javad Rodriguez DO documented in this encounter [facility] 01-27-2024 History of Present illness Narrative Patient Name: Susie Boyce Date of : 1950 Date of Service: 01/27/2024 Facility: [facility] Type of Visit: Subsequent Visit Subjective Susie Boyce is a 73 y.o. male seen today at senior living facility for monthly visit. James has fallen [...] midodrine. Allergies: Penicillins and Simvastatin Code Status: [facility] BP 126/68 Pulse 66 Temp 36.1 [...] Alzheimer's dementia with anxiety, unspecified dementia severity ([facility]) 2. Parkinson's disease without dyskinesia or fluctuating manifestations ([facility]) 3. Gastroesophageal reflux disease, unspecified whether esophagitis [...] are medically necessary. ELECTRONICALLY SIGNED BY: Javad Rodriguez DO documented in this encounter [facility] 12-23-2023 History of Present illness Narrative Patient Name: Susie Boyce Date of : 1950 Date of Service: 12/23/2023 Facility: [facility] Type of Visit: Acute Visit Subjective Susie Boyce is a 73 y.o. male seen today at senior living facility for regular visit. James has been increasingly [...] fine. Allergies: Penicillins and Simvastatin Code Status: [facility] BP 134/76 Pulse 76 Temp 36.6 [...] Alzheimer's dementia with anxiety, unspecified dementia severity ([facility]) 2. Parkinson's disease without dyskinesia or fluctuating manifestations (CMS-HCC) 3. Anxiety 4. Impaired gait 5. Contusion of scalp, subsequent encounter He is maxed out on SSRI. He was recently started on namenda by psych. Will try buspirone 5 mg BID. Continue other orders as directed. All medications reviewed and are medically necessary. ELECTRONICALLY SIGNED BY: Javad Rodriguez DO documented in this encounter [facility] 11-04-2023 History of Present illness Narrative Patient Name: Susie Boyce Date of : 1950 Date of Service: 11/04/2023 Facility: [facility] Type of Visit: Acute Visit Subjective Susie Boyce is a 73 y.o. male seen today at senior living facility for acute visit. James is in isolation because he has Covid. He had sinus congestion but feels fine now. He denies CP, SOB or fever. He was in therapy for recent falls. He had labs done and some were abnormal. Allergies: Penicillins and Simvastatin Code Status: [facility] BP 105/55 Pulse 53 Temp 36.6 C [...] neuropathy, with long-term current use of insulin ([facility]) 3. Late onset Alzheimer's dementia with anxiety, unspecified dementia severity ([facility]) 4. Primary hypertension 5. Low serum total protein level Medically stable. He is improved with covid. I had recommended Paxlovid but must not have agreed to it. A1c is acceptable at 7.3%. continue current regimen. All medications reviewed and are medically necessary. ELECTRONICALLY SIGNED BY: Javad Rodriguez DO documented in this encounter [facility] 10-26-2023 History of Present illness Narrative Patient Name: Susie Boyce Date of : 1950 Date of Service: 10/26/2023 Facility: [facility] Type of Visit: Subsequent Visit Subjective Susie Boyce is a 73 y.o. male seen today at senior living facility for problem visit. James fell recently [...] concerns. Allergies: Penicillins and Simvastatin Code Status: [facility] BP 135/72 Pulse 64 Temp 36.6 C [...] Parkinson's disease without dyskinesia or fluctuating manifestations ([facility]) 2. Laceration of scalp, subsequent encounter 3. Type 2 diabetes mellitus with diabetic neuropathy, with long-term current use of insulin ([facility]) Medically stable. He declined medication for his diabetic neuropathy. Risks and benefits were discussed. Scalp laceration is healing well. He does not have any headaches or other focal neurologic acute issues. All medications reviewed and are medically necessary. ELECTRONICALLY SIGNED BY: Javad Rodriguez DO documented in this encounter [facility] 09-20-2023 History of Present illness Narrative Patient Name: Susie Boyce Date of : 1950 Date of Service: 09/20/2023 Facility: [facility] Type of Visit: Acute Visit Subjective Susie Boyce is a 73 y.o. male seen today at senior living facility for problem visit. James has been having [...] issues. Allergies: Penicillins and Simvastatin [facility] There were no vitals taken for this [...] Alzheimer's dementia with anxiety, unspecified dementia severity ([facility]) 2. Urinary incontinence, unspecified type 3. [...] for urinary problems. ELECTRONICALLY SIGNED BY: Javad Rodriguez DO documented in this encounter [facility] 09-14-2023 History of Present illness Narrative Patient Name: Susie Boyce Date of : 1950 Date of Service: 09/14/2023 Facility: [facility] Type of Visit: Acute Visit Subjective Susie Boyce is a 73 y.o. male seen today at senior living facility for problem visit. James requested to see me again. He wants to know when he can get out of here. He wants to go home or go live with his son in [facility]. Nurses report abnormal labs for my review. Allergies: Penicillins and Simvastatin Code Status: [facility] BP 138/86 Pulse 58 Temp 36.7 C [...] complication, with long-term current use of insulin ([facility]) 2. Low HDL (under 40) 3. Late onset Alzheimer's dementia with anxiety, unspecified dementia severity ([facility]) 4. Hyperlipidemia, unspecified hyperlipidemia type 5. Low serum total protein level Increase alogliptin to 25 mg daily. Recheck CMP and A1c in 6 months Continue other orders as dir. All medications reviewed and are medically necessary. ELECTRONICALLY SIGNED BY: Javad Rodriguez DO documented in this encounter [facility] 09-09-2023 History of Present illness Narrative Patient Name: Susie Boyce Date of : 1950 Date of Service: 09/09/2023 Facility: [facility] Type of Visit: Subsequent Visit Subjective Susie Boyce is a 73 y.o. male seen today at senior living facility for problem visit. James requested to see me regarding his medication. He thought I made an adjustment with his blood pressure medication but he only takes midodrine for low BP. It was a little elevated today. He fell recently. He says he didn't pass out. He has had no recent falls. No urinary issues. Allergies: Penicillins and Simvastatin Code Status: [facility] BP 144/71 Wt 81.5 kg (179 lb [...] are medically necessary. ELECTRONICALLY SIGNED BY: Javad Rodriguez DO documented in this encounter [facility] 09-02-2023 History of Present illness Narrative Images from the original note were not included. Patient Name: Susie Boyce Date of : 1950 Date of Service: 09/02/2023 Facility: [facility] Type of Visit: Acute Visit Subjective Susie Boyce is a 73 y.o. male seen today at senior living facility for problem visit. Staff reports that James [...] incontinence. Allergies: Penicillins and Simvastatin Code Status: [facility] BP 144/89 Pulse 50 Temp 36.6 C [...] complication, with long-term current use of insulin ([facility]) 2. Contusion of left buttock 3. Late onset Alzheimer's dementia with anxiety, unspecified dementia severity ([facility]) 4. Parkinson's disease without dyskinesia or fluctuating manifestations ([facility]) 5. Hyperlipidemia, unspecified hyperlipidemia type I'm going to decrease oxybutynin ER to 5 mg daily for a GDR as it is an anticholinergic and may cause dizziness. Check CMP, CBC, lipid panel and A1c. Continue other orders as dir. All other medications reviewed and are medically necessary. ELECTRONICALLY SIGNED BY: Javad Rodriguez DO documented in this encounter [facility] 08-05-2023 History of Present illness Narrative Patient Name: Susie Boyce Date of : 1950 Date of Service: 08/05/2023 Facility: [facility] Type of Visit: Admission H&P Subjective Susie Boyce is a 73 y.o. male seen today at senior living facility for admission H&P. HPI Past Medical History: Diagnosis Date AAA (abdominal aortic aneurysm) ([facility]) Anxiety Arthritis generalized Dental disease crowns Diabetes mellitus type 2, controlled ([facility]) on oral and insulin, checks sugars twice daily Hydrocele in adult Left Hyperlipidemia Inguinal hernia Left Inguinal PONV (postoperative nausea and vomiting) Skin cancer Visual impairment WEARS GLASSES Past Surgical History: Procedure Laterality Date CLOSURE MOHS NASAL ALA LEFT Left 12/19/2017 Performed by Pat Bay MD at [facility] COLONOSCOPY DIAGNOSTIC / SCREENING N/A 04/19/2023 Performed by Andrzej Short MD at [facility] ESOPHAGOGASTRODUODENOSCOPY BIOPSY N/A 04/18/2023 Performed by Andrzej Short MD at [facility] HYDROCELE EXCISION / REPAIR INGUINAL HERNIA REPAIR Left x2 Inguinal JOINT REPLACEMENT Left KNEE SURGERY Bilateral scope REPLACMENT TOTAL JOINT KNEE Right 10/22/2016 Performed by Eduardo Hennessy MD at [facility] REPLACMENT TOTAL JOINT KNEE Left 05/14/2016 Performed by Derrek Arshad MD at [facility] TONSIL SURGERY childhood TRACHEOSTOMY CLOSURE 1951 TRACHEOSTOMY TUBE PLACEMENT 1951 Family History Problem Relation Age of Onset Anesthesia problems Neg Hx Allergies: Penicillins and Simvastatin Code Status: DNC The following portions of the patient's history [...] Parkinson's disease without dyskinesia or fluctuating manifestations ([facility]) 2. Late onset Alzheimer's dementia with other behavioral disturbance, unspecified dementia severity ([facility]) 3. Depression, unspecified depression type 4. Type 2 diabetes mellitus with diabetic neuropathy, with long-term current use of insulin ([facility]) James was admitted to [facility] [address] [facility] psychiatric unit for dementia with behavioral disturbances. It said that he had severe dementia disturbances but I do not think it is severe. Continue his current medications. He is a DNR comfort care. Poor prognosis. He says he is planning on going back home to live with his but I am not sure what the usp plans are for him. He probably needs close supervision. ELECTRONICALLY SIGNED BY: Javad Rodriguez DO documented in this encounter [facility] 06-17-2023 History of Present illness Narrative The [...] Documentation: Carbidopa Levodopa 25/250MG Tablets and Pyridostimine [place] 60MG tablets on hold, PT has plenty at home per . Midodrine 2.5MG tablets filled for 10 day supply with ins override since Sent original prescription to mail order. Midodrine was dropped off to PT's room and signed for by Bettie, of PT 4:36PM. 06/17/23 Ok to dicharge per family wish if cleared by cardiology and neurology Bertram Hatch MD 06/17/2023 [facility] Occupational Therapy Evaluation Date: 06/17/23 Patient Name: Susie Boyce Room: Account: [id number] : 1950 (72 y.o.) Gender: male Discharge [...] Walker accessible Home Equipment: Cane, Walker, rolling, Data Entry Email Processor (gait belt, glucometer) ADL Assistance: Independent Homemaking Assistance: Needs assistance (Spouse mainly completes cleaning, cooking, laundry. Pt does yardwork but pt requiring increased assistance due to weakness recently) Homemaking Responsibilities: Yes Ambulation Assistance: Independent (use of cane) Transfer Assistance: Independent Active Licensed Prosthetist/Orthotist: No Patient's Licensed Prosthetist/Orthotist Info: spouse Occupation: Retired [employer] Comments: Pt [...] Education Outcome: Verbalized understanding Functional Outcome Measures [facility] Daily Activity - Inpatient How much help [...] How much help for eating meals?: None [facility] Inpatient Daily Activity Raw Score: 20 AM[facility] Inpatient ADL T-Scale Score : 42.03 ADL [...] Treatment Minutes: 19 Minutes Physical Therapy Facility/Department: [facility] Physical Therapy Initial [...] Walker accessible Home Equipment: Cane, Walker, rolling, Data Entry Email Processor (gait belt, glucometer) Receives Help From: Family ADL Assistance: Independent Homemaking Assistance: Needs assistance (Spouse mainly completes cleaning, cooking, laundry. 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 Since then he has seen neurology who increased donepezil to 15 mg. Was also to admitted to [facility] for fatigue, dark stools and positive [...] hypotensive. Denies any loss of consciousness since [place]. Denies any palpitations. 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 Abdominal aortic aneurysm (AAA) [...] Independent Dressing Independent Toileting Independent Feeding Independent Animal Cruelty Investigation Supervisor Independent Med Delivery whole Wound Care Documentation [...] select all that are sent with patient): Branden RN SIGNATURE: Timur Aldana RNMILLING MACHINE OPERATOR/SOCIAL WORK SECTION Inpatient Status Date: 06/16/2023 Readmission Risk Assessment Score: Readmission Risk Risk of Unplanned Readmission: 12 Discharging to Facility/ Agency [facility] [address] [facility] [address] Fax Dialysis Facility (if applicable) Name: Address: Dialysis Schedule: Phone: Fax: Institute Scientist/Admitting Office Escort signature: PHYSICIAN SECTION Prognosis: Fair Condition at [...] be sent through Care Everywhere.midodrine ([place])Lightheadedness or Faintness ([place])Orthostatic Hypotension ([place])Seizure ([place])Caregiving: Making a Home Safe: General Info ([place]izen [place])Diabetes Diet Meal Planning: General Info ([place]izen [place])documented in this encounter [facility] 04-27-2023 Miscellaneous Notes Called patient to inform of benign biopsies from colonoscopy and EGD at [facility]. Patient can repeat colonoscopy in 3-5 years for CRC screening, depending upon health status. documented in this encounter [facility] 04-27-2023 Telephone encounter Note Called patient to inform of benign biopsies from colonoscopy and EGD at [facility]. Patient can repeat colonoscopy in 3-5 years for CRC screening, depending upon health status. [facility] Work Phone: 01-25-2023 Note [phone] Susie Boyce 1950 Date Provider Department [place] 01/25/2023 [facility] No family history on file Reason for Visit and Comments: Cognitive Difficulties [Other] [facility] 01-25-2023 Note [facility] [address] [address] FAX: [phone] NEUROPSYCHOLOGICAL EVALUATION DATES OF SERVICE: 01/25/2023 DIAGNOSIS: R41.3 Other amnesia DATE OF ONSET: Unknown DATE OF : 1950 AGE: 72 years REASON FOR REFERRAL: This is the initial neuropsychological evaluation of Mr. Susie Boyce, a 72-year-old, right-handed gentleman who was referred for this evaluation by Vale Evangelista MD ([facility]) to determine present neurocognitive functioning [...] to be. Review of medical records from [facility] include a neurology office visit with Dr. [...] appliance therapy was cost prohibitive. Records from [facility] include an Occupational Therapy Licensed Prosthetist/Orthotist Rehabilitation Evaluation conducted on 10/26/2022 by ADAMA Jaquez/Renate, CDRS, CDI. The note indicates that Mr. [...] but was otherwise normal. CURRENT MEDICATIONS: From [facility], Mr. Boyce reports he is taking carbidopa-levodopa 4 times per day, metformin, insulin, Prozac, atorvastatin, lisinopril, vitamin B12, and recently started donepezil. [facility] records add ibuprofen. PAST MEDICAL HISTORY: Mr. Boyce reports history of Parkinson's disease and diabetes. [facility] records indicate additional history of cervical [...] sugar. He repo (more content not included)... [facility] 10-26-2022 Note Occupational Therapy Occupational Therapy Evaluation Licensed Prosthetist/Orthotist Rehab Patient Name: Susie Boyce : 1950 Date: 10/26/2022 Total Visit Count: 1 Total Cumulative Minutes: 110 Start Time: 8:00 Stop Time: 9:50 General Subjective: Pt was referred for a functional community mobility evaluation with recent d/x Parkinsons and memory changes. Chart Reviewed: Yes Family/Caregiver Present: Yes Patient Active Problem List Diagnosis Cognitive deficits Parkinson's disease (CMS/[facility]) Cervical spondylosis Functional Community Mobility Evaluation Diagnosis and Onset: Mr. Boyce is a 72-year-old male who was referred to the drive away driver rehab clinic for a functional community [...] vitamin B12, lisinopril, Prozac. License Number: [id number]. State: [place]. Expiration Date: 2026. License Restrictions: B. Lens. Previous Licensed Prosthetist/Orthotist Eval: No Vehicle Make and Model: [employer] [place]. Prior difficulties with driving/Citations/Navigation: No accidents, citations, or navigational errors reported. Last time driven: 10/26/2022. Current means of community mobility: Self. Type of traffic driven: All. Reports daily driving, mostly surface streets. Golfs 3 times a week. Previous frequency with driving and reason: GVISP 1 leisure Support system: Resides with . Primary Licensed Prosthetist/Orthotist/Passenger: Primary drive away driver. Necessity for eval: Medical condition recent [...] wears glasses. He follows up with an correctional program specialist yearly. He reports no visual changes, denies diplopia or blurriness. Range of Motion: Right eye: Full. Left eye: Full. Both eyes: Full. Convergence: Normal. Saccades: Horizontal and vertical. Mild reduction in speed. Right Field: Direct fixation. Left Field: Direct fixation. Pursuits: Sustains fixation. [employer] Licensed Prosthetist/Orthotist Rehab Vision Test Peripheral Douglass Left Eye: [...] to identify unmarked road signs. Color Recognition: 06/01. Comments: MVPT: Visual Processing Raw Score: 31/36. [...] memory skills immediate and delayed, slight reduction. [place] Making Part B: Evaluates divided attention and [...] WNL [place] (more content not included)... [facility] 02-17-2022 Hospital course Narrative Images from the original note were not included. [] [facility] Outpatient Rehabilitation & Therapy [address] P: F: [x] [facility] Outpatient Rehabilitation & Therapy [address] [facility] [address] P: F: [] [facility] Outpatient Rehabilitation & Therapy [address] P: F: [] [facility] [place] Outpatient Rehabilitation & Therapy [address] P: F: [] [facility] Outpatient Rehabilitation & Therapy [address] P: F: Physical Therapy Discharge Note Date: 02/17/2022 Patient: Susie Boyce : 1950 Physician: JIM Jaramillo Insurance: G20 (ICD-10-CM) - Parkinson's disease (HCC) Medical Diagnosis: [employer] Medicare (BMN) Rehab Codes: R26.89, M62.81, R29.3 Next 's appt.: 05/11/21 Date of symptom onset: 01/14/22 Visit# / total visits: 8/; Progress note for Medicare patient due at visit 8 Cancels/No Shows: 0 Date of initial visit: 01/25/22 Date of final visit: 02/17/22 Subjective: Pain: [] Yes [x] No Location: N/A Pain Rating: (0-10 scale) 0/10 Pain altered Tx: [x] No [] Yes Action: Comments: Pt notes he just arrived from the dentist, doing well. Leaves for [place] next week. Objective: Test Measurements: see goal [...] like to seek out further therapy in [place] while on vacation and plans to continue [...] of treatment sessions. [x] Other: Leaving for [place] for several months. If you have any questions or concerns, please don't hesitate to call. Thank you for your referral. documented in this encounter [email or web address] Phone: Evaluation + Plan note No data available for this section [facility] Evaluation note Diagnosis Tremors of nervous system Abnormal involuntary movements Type 2 diabetes mellitus without complication, with long-term current use of insulin (HCC) Other hyperlipidemia documented in this encounter [email or web address] Phone: evaluation note* Diagnosis Tremors of nervous system Abnormal involuntary movements documented in this encounter [email or web address] Phone: evaluation note* Diagnosis Tremors of nervous system Abnormal involuntary movements Cervical arthritis Cervical spondylosis without myelopathy Gait abnormality Abnormality of gait documented in this encounter [email or web address] Phone: evaluation note* Diagnosis B12 deficiency Other B-complex deficiencies documented in this encounter [email or web address] Phone: evaluation note* Diagnosis Cognitive impairment Unspecified persistent mental disorders due to conditions classified elsewhere documented in this encounter [employer] note* Diagnosis Near syncope- Primary Syncope and collapse Near syncope Syncope and collapse Pre-syncope Syncope and collapse Parkinson's disease without dyskinesia or fluctuating manifestations (HCC) documented in this encounter [employer] note* Diagnosis Lewy body dementia with psychotic disturbance, unspecified dementia severity ([facility]-HCC)- Primary Impaired gait Recurrent falls Laceration of scalp without foreign body, subsequent encounter [facility] Diagnosis Lewy body dementia with psychotic disturbance, unspecified dementia severity ([facility]-HCC)- Primary Parkinson's disease without dyskinesia or fluctuating manifestations ([facility]) Anxiety Anxiety state, unspecified Neurogenic orthostatic hypotension ([facility]) [facility]* Diagnosis Parkinson's disease without dyskinesia or fluctuating manifestations ([facility]-HCC)- Primary Late onset Alzheimer's dementia with other behavioral disturbance, unspecified dementia severity ([facility]) Depression, unspecified depression type Type 2 diabetes mellitus with diabetic neuropathy, with long-term current use of insulin ([facility]) documented in this encounter [facility]* Diagnosis Type 2 diabetes mellitus with complication, with long-term current use of insulin ([facility])- Primary Contusion of left buttock Late onset Alzheimer's dementia with anxiety, unspecified dementia severity ([facility]) Parkinson's disease without dyskinesia or fluctuating manifestations ([facility]) Hyperlipidemia, unspecified hyperlipidemia type documented in this encounter [facility]* Diagnosis Parkinson's disease without dyskinesia or fluctuating manifestations ([facility]-H[facility])- Primary Hypotension, unspecified hypotension type Urinary incontinence, unspecified type Primary hypertension Unspecified essential hypertension [facility] in this encounter [facility]* Diagnosis Type 2 diabetes mellitus with complication, with long-term current use of insulin ([facility])- Primary Low HDL (under 40) Late onset Alzheimer's dementia with anxiety, unspecified dementia severity ([facility]) Hyperlipidemia, unspecified hyperlipidemia type Low serum total protein level documented in this encounter [facility]* Diagnosis Late onset Alzheimer's dementia with anxiety, unspecified dementia severity ([facility])- Primary Urinary incontinence, unspecified type Anxiety Anxiety state, unspecified documented in this encounter [facility]* Diagnosis COVID-19- Primary Type 2 diabetes mellitus with diabetic neuropathy, with long-term current use of insulin ([facility]) Late onset Alzheimer's dementia with anxiety, unspecified dementia severity ([facility]) Primary hypertension Unspecified essential hypertension Low serum total protein level documented [facility] Diagnosis Parkinson's disease without dyskinesia or fluctuating manifestations (CMS-HCC)- Primary Laceration of scalp, subsequent encounter Type 2 diabetes mellitus with diabetic neuropathy, with long-term current use of insulin (CMS-HCC) documented in this encounter [facility]* Diagnosis Late onset Alzheimer's dementia with anxiety, unspecified dementia severity (CMS-HCC)- Primary Parkinson's disease without dyskinesia or fluctuating manifestations (CMS-HCC) Anxiety Anxiety state, unspecified Impaired gait Contusion of scalp, subsequent encounter [facility] Diagnosis Late onset Alzheimer's dementia with anxiety, unspecified dementia severity (CMS-HCC)- Primary Parkinson's disease without dyskinesia or fluctuating manifestations (CMS-HCC) Gastroesophageal reflux disease, unspecified whether esophagitis present Hypotension, unspecified hypotension type Primary hypertension Unspecified essential hypertension documented in this encounter [facility]* Diagnosis Parkinson's disease without dyskinesia or fluctuating manifestations (CMS-HCC)- Primary Anxiety Anxiety state, unspecified Depression, unspecified depression type documented in this encounter [facility]* Diagnosis Parkinson's disease without dyskinesia or fluctuating manifestations (CMS-HCC)- Primary Lewy body dementia with psychotic disturbance, unspecified dementia severity (CMS-HCC) Neurogenic orthostatic hypotension ([facility]) Impaired gait documented in this encounter [facility]* Diagnosis 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 (CMS-HCC)- Primary Recurrent falls Impaired gait Neurogenic orthostatic hypotension (CMS-HCC) [facility] this encounter [facility]* Diagnosis Fall, initial encounter- Primary 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 (CMS-HCC) documented in this encounter [facility]* Diagnosis Lewy body dementia with psychotic disturbance, unspecified dementia severity (CMS-HCC)- Primary Recurrent falls Skin tear of right elbow without complication, subsequent encounter Impaired gait documented in this encounter [facility]* Diagnosis Lewy body dementia with psychotic disturbance, unspecified dementia severity (CMS-HCC)- Primary 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 (CMS-HCC) Recurrent major depressive disorder, in partial remission documented in this encounter [facility]* Diagnosis Lewy body dementia with psychotic disturbance, unspecified dementia severity (CMS-HCC)- Primary 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 (CMS-HCC) Recurrent falls Neurogenic orthostatic hypotension (CMS-HCC) documented in this encounter [facility] instructions No data available for this section [facility] InstructionsNot on filedocumented in this encounter [facility] [...] on filedocumented in this encounter [facility] No data available for this section [facility] Advance Directives Healthcare Agents on File Name Relationship Healthcare Agent Relationship Communication Bettie Carli Spouse Primary Decision Maker Healthcare Agents on File Name Relationship Healthcare Agent Relationship Communication Bettie Carli Spouse Primary Decision Maker Healthcare Agents on File Name Relationship Healthcare Agent Relationship Communication Bettie Mohsenebghazala Spouse Primary Decision Maker Healthcare Agents on File Name Relationship Healthcare Agent Relationship Communication Bettie Himebaugiuseppe Spouse Primary Decision Maker Healthcare Agents on [...] Documents on File Type Date Recorded Patient Project Director Expl anation Durable Power of Screen Printing Machine Loader Unloader 04/16/2023 6:37 PM TT ER DNRCC 024 Date Activated Date Inactivated Comments 04/16/2023 6:43 PM 04/20/2023 5:28 PM Latest Code Status on File Code Status Date Activated Date Inactivated Comments DNR Comfort Care Arrest (DNR-CCA) [place] 04/16/2023 6:43 PM 04/20/2023 5:28 PM Documents on File Type Date Recorded Patient Project Director Expl anation Advance Directive 05/11/2024 5:56 AM TTH E D DNR FORM 05/11/24 Durable Power of Screen Printing Machine Loader Unloader 04/16/2023 6:37 PM [facility] 024 Date Activated Date Inactivated Comments 05/11/2024 7:49 AM 05/11/2024 4:40 PM Date Activated Date Inactivated Comments 04/16/2023 6:43 PM 04/20/2023 5:28 PM Reason for Referral Specialty Diagnoses / Procedures Referred By Contac t Referred To Contact Radiology Diagnoses Tremors of nervous system Cervical arthritis Gait abnormality R25.1 (ICD-10-CM) - Tremors of nervous system Procedures MRI CERVICAL SPINE WO CONTRAST [place] MRI, CERV SPINE 06572 - [place] [address] [place] [address] Referral ID Status Reason Start Date Expiration Date Visits Re quested Visits Authorized [id number] Closed 12/21/2021 12/05/2022 1 0 Specialty Diagnoses / Procedures Referred By Contac t Referred To Contact Radiology Diagnoses Cognitive impairment Procedures MRI BRAIN W WO CONTRAST Vale Evangelista MD [address] [facility] [address] [place] [address] Referral ID Status Reason Start Date Expiration Date Visits Re quested Visits Authorized [id number] Closed 09/03/2022 08/19/2023 1 1 Summary Purpose Family History No Family History Records FoundNo Family History Records FoundNo Family History Records FoundNo Family History Records FoundNo Family History Records Found No data available for this section No data available for this section No Family History Records FoundNo Family History Records FoundNo Family History Records FoundNo Family History Records Found Additional Source Comments Care Teams (unrecognized sec tion and content) Aerodynamic Consultant Relationship Specialty [place] [address] [place] [address] PCP - General Family Medicine 02/13/15 Aerodynamic Consultant Relationship Specialty Start [place] [address] [place], [place] [id number] PCP - General Family Medicine 02/13/15 Aerodynamic Consultant Relationship Specialty [place] [address] [place] [address] PCP - General [facility] Medicine 02/13/15 Aerodynamic Consultant Relationship Specialty Start [place] [address] [place] [address] PCP - General [facility] Medicine 02/13/15 Aerodynamic Consultant Relationship Specialty Start [place] [address] [place] [address] PCP - [facility] 02/13/15 Aerodynamic Consultant Relationship Specialty Start [place] [address] [place] [address] PCP - [facility] 02/13/15 Aerodynamic Consultant Relationship Specialty Start [place] [address] [place] [address] PCP - [facility] 02/13/15 Aerodynamic Consultant Relationship Specialty Start [place] [address] [place] [address] PCP - [facility] 02/13/15 Aerodynamic Consultant Relationship Specialty Start [place] [address] [place] [address] PCP - [facility] Medicine 02/13/15 Aerodynamic Consultant Relationship Specialty Start [place] [address] [place] [address] PCP - General Family Medicine 02/13/15 Aerodynamic Consultant Relationship Specialty Start [place] [address] [place] [address] PCP - General 01/07/14 Aerodynamic Consultant Relationship Specialty Start [place] [address] [place] [address] PCP General 01/07/14 Aerodynamic Consultant Relationship Specialty Start [place] [address] [place] [address] [facility] - General 01/07/14 Aerodynamic Consultant Relationship Specialty Start [place] [address] [place] [address] [facility] General 01/07/14 Aerodynamic Consultant Relationship Specialty Start [place] [address] [place] [address] PCP General 01/07/14 Aerodynamic Consultant Relationship Specialty [place] [address] [place] [address] PCP - General 01/07/14 Aerodynamic Consultant Relationship Specialty [place] [address] [place] [address] PCP - General 01/07/14 Aerodynamic Consultant Relationship Specialty [place] [address] [place], [place] [id number] PCP - General 01/07/14 Aerodynamic Consultant Relationship Specialty Start Date End Date Javad Rodriguez DO [address] [place] [address] PCP - General Family Medicine 05/11/24 Aerodynamic Consultant Relationship Specialty Start Date End Date Javad Rodriguez DO [address] [place] [address] PCP - General Family Medicine 05/11/24 Aerodynamic Consultant Relationship Specialty Start Date End Date Javad Rodriguez DO [address] [place] [address] PCP - General Family Medicine 05/11/24 Aerodynamic Consultant Relationship Specialty Start Date End Date Javad Rodriguez DO [address] [place] [address] PCP - General Family Medicine 05/11/24 Reason for Visit (unrecogniz ed section and content) Specialty Diagnoses / Procedures Referred By Contramandeep t Referred To Contact Radiology Diagnoses Tremors of nervous system Cervical arthritis Gait abnormality R25.1 (ICD-10-CM) - Tremors of nervous system Procedures MRI CERVICAL SPINE WO CONTRAST [place] MRI, CERV SPINE [address]339 - [place] MRI[place] [address] [facility] [place] [address] Referral ID Status Reason Start Date Expiration Date Visits Re quested Visits Authorized [id number] Closed 12/21/2021 12/05/2022 1 0 Specialty Diagnoses / Procedures Referred By Contac t Referred To Contact Physical Therapist / Physical Therapy Diagnoses Parkinson's disease (HCC) Andrew Maira Avinash, PLASTER BLOCK LAYER - MVA REACTOR OPERATOR HEAD [address] [facility] [address] [place] [address] [facility] [address] [facility] [place] [address] Referral ID Status Reason Start Date Expiration Date Visits Requested Visits Authorized [id number] Authorized Specialty Services Required 01/14/2023 1 99 Specialty Diagnoses / Procedures Referred By Contac t Referred To Contact Radiology Diagnoses Cognitive impairment Procedures MRI BRAIN W WO CONTRAST Vale Evangelista MD [address] [facility] [address] [place] [address] Referral ID Status Reason Start Date Expiration Date Visits Re quested Visits Authorized [id number] Closed 09/03/2022 08/19/2023 1 1 Reason Comments Loss of Consciousness Specialty Diagnoses / Procedures Referred By Contramandeep t Referred To Contact Diagnoses Pre-syncope Near syncope Marta Lozano MD [address] [place] [address] [facility] [id number] [place] [phone] Referral ID Status Reason Start Date Expiration Date Visits Re quested Visits Authorized [id number] 1 1 Specialty Diagnoses / Procedures Referred By Contramandeep t Referred To Contact Diagnoses Pre-syncope Near syncope Marta Lozano MD [address] [place] [address] [facility] [id number] [place] [phone] (unrecognized sect ion and content) No Status Records FoundNo Status Records FoundNo Status Records FoundNo Status Records FoundNo Status Records FoundNo Status Records FoundNo Status Records FoundNo Status Records FoundNo Status Records Found INFORMATION SOURCE (unrecogn ized section and content) DATE CREATED AUTHOR 10/10/2022 [facility] DATE CREATED AUTHOR AUTHOR'S ORGANIZ ATION 01/31/2023 [facility] DATE CREATED AUTHOR AUTHOR'S ORGANIZ ATION 06/25/2023 [facility] DATE CREATED AUTHOR AUTHOR'S ORGANIZ ATION 08/05/2023 [facility] DATE CREATED AUTHOR AUTHOR'S ORGANIZ ATION 05/19/2024 [facility] DATE CREATED AUTHOR AUTHOR'S ORGANIZ ATION 08/08/2024 [facility] DATE CREATED AUTHOR AUTHOR'S ORGANIZ ATION 08/10/2024 [facility] DATE CREATED AUTHOR AUTHOR'S ORGANIZ ATION 08/11/2024 [facility] DATE CREATED AUTHOR AUTHOR'S ORGANIZ ATION 09/07/2024 [facility] Ordered Prescriptions (unrec ognized section and [...] Donnell Douglass)1340 (Not Given - Provider: Pilar lAdana RN - Reason: Other - Comment: AM [...] dose on Tue06/17/23 at 0900, Until Discontinued 09 (Given - Provid er: Donnell Douglass) sodium [...] RN) 1016 (Given - Provider: Pilar Aldana RN)2099 (Due) PRN Medication Order 06/15/2023 06/16/202306/1606/17/2023 0.9 % sodium chloride infusion IntraVENous, at [...] 4) 10 mEq, IntraVENous, PRN, Starting on Luna [...] EVERY 6 HOURS PRN, Starting on Luna 24 at 1352, Until Discontinued, Nausea, Vomiting
Administer [...] BE BASED ON THE PRIMARY CLINICAL RECORDS. [facility]. provides no warranty or guarantee of the accuracy or completeness of information in this document.
== END 2024-10-10 13:56 | disposition home or self-care (01) ==
LOC: US 13:55
PROVIDERS: PCP Family Medicine; Visit Provider Urology
DX: N43.3 Hydrocele, unspecified (principal); N45.1 Epididymitis; N50.0 Atrophy of testis
CPT/HCPCS: 76870